=== PATIENT | female | born 1990 | race Caucasian/White ===

== ENCOUNTER 2018-05-01 11:26 | Outpatient (CLI) | payer OTHER ==
[2018-05-01 14:11] LABS: Hemoglobin 6.9 g/dL (12.0-16.0); Mean Corpuscular HGB CONC 31.9 g/dL (32.0-36.0); Mean Corpuscular Hemoglobin 26.5 pg (27.0-31.0); RBC Distribution Width 15.6 % (11.5-14.5); Red Blood Cell (RBC) Count 2.59 mill/uL (4.20-5.40); White Blood Cell (WBC) Count 2.1 thou/uL (4.8-10.8)
[2018-05-01 14:13] LABS: Bilirubin Negative (Negative); Blood, Urine Trace (Negative); Clarity CLEAR (Clear); Glucose, Urine (Dipstick) >=1000 mg/dL (Negative); Leukocyte Small (Negative); Nitrite Negative (Negative); Protein, Urine (Dipstick) Trace mg/dL (Neg-Trace); Specific Gravity, Urine 1.018 (1.002-1.036); Urobilinogen 0.2 mg/dL (0.2-1.0)
[2018-05-01 14:14] LABS: BHCG - Serum Negative (NEGATIVE); Pregs Control Background? CLEAR/WHITE (CLR/WHITE); Pregs Control Bar Appear? YES (CONTROL BAR)
[2018-05-01 14:15] LABS: INR-International Normal Ratio 1.1
[2018-05-01 14:16] LABS: PTT 29.6 SEC (22.9-36.1)
[2018-05-01 14:17] LABS: Bacteria/HPF 1+ HPF (None Seen); Hyaline Casts/LPF 0-3 HYALINE CAST LPF (0-3 Hyaline); Pathc Cast-AUWi Flag 0.14 (0-2.49)
[2018-05-01 14:20] LABS: Anion Gap 14 mmol/L (10-20); BUN (Urea Nitrogen) 22 mg/dL (7.0-18.7); Calc. Creatinine Clearance 0 mL/min (70-130); Calcium 9.5 mg/dL (7.8-10.44); Carbon Dioxide 23 mmol/L (22-29); Chloride 105 mmol/L (98-107); Estimated GFR-MDRD 42; Glucose 350 mg/dL (70-105); Potassium 5.1 mmol/L (3.5-5.1); Sodium 137 mmol/L (136-145)
[2018-05-01 14:26] LABS: Mean Platelet Volume 18.6 fL (7.4-10.4); Platelet Count 4 thou/uL (130-400)
== END 2018-05-01 11:27 | disposition home or self-care (01) ==
LOC: LABBT 11:26
PROVIDERS: ATTEND Urology
DX: Z01.812 Encounter for preprocedural laboratory examination (principal); N13.39 Other hydronephrosis; D59.1 Other autoimmune hemolytic anemias; E11.65 Type 2 diabetes mellitus with hyperglycemia; Q62.11 Congenital occlusion of ureteropelvic junction; E66.9 Obesity, unspecified; D61.818 Other pancytopenia; N28.9 Disorder of kidney and ureter, unspecified; Z91.19 Patient's noncompliance with other medical treatment and regimen
CPT/HCPCS: 80048; 81001; 84703; 85027; 85610; 85730; 87086

== ENCOUNTER 2018-05-01 15:31 | Inpatient (IN) | payer OTHER ==
[2018-05-01 16:46] LABS: Hemoglobin 6.6 g/dL (12.0-16.0); Mean Corpuscular HGB CONC 32.2 g/dL (32.0-36.0); Mean Corpuscular Hemoglobin 25.9 pg (27.0-31.0); Mean Corpuscular Volume 80.3 fL (78.0-98.0); Mean Platelet Volume 18.2 fL (7.4-10.4); Platelet Count 3 thou/uL (130-400); RBC Distribution Width 15.3 % (11.5-14.5); Red Blood Cell (RBC) Count 2.56 mill/uL (4.20-5.40); White Blood Cell (WBC) Count 1.8 thou/uL (4.8-10.8)
[2018-05-01 16:57] LABS: ALT (SGPT) 13 U/L (8-55); AST (SGOT) 15 U/L (5-34); Albumin 3.5 g/dL (3.5-5.0); Alkaline Phosphatase 76 U/L (40-150); Anion Gap 15 mmol/L (10-20); BUN (Urea Nitrogen) 22 mg/dL (7.0-18.7); Bilirubin, Total 0.7 mg/dL (0.2-1.2); Calc. Creatinine Clearance 0 mL/min (70-130); Calcium 9.1 mg/dL (7.8-10.44); Carbon Dioxide 21 mmol/L (22-29); Chloride 101 mmol/L (98-107); Estimated GFR-MDRD 39; Globulin 2.1 g/dL (2.4-3.5); Glucose 451 mg/dL (70-105); Potassium 4.8 mmol/L (3.5-5.1); Protein, Total 5.6 g/dL (6.0-8.3); Sodium 132 mmol/L (136-145)
[2018-05-01 17:05] LABS: Anisocytosis SLIGHT = 6-15 cells (100X) (0-5/hpf); Band 4 % (5-11); Hypochromia SLIGHT = 6-15 cells (100X) (0-5/hpf); Lymphocytes 46 % (21-51); MDiff Complete? YES; Monocytes 2 % (0-10); Neutrophil 48 % (42-75); Nucleated RBC 1 % (0); Platelet Morphology Comment Appears Decreased
[2018-05-01] MEDS ORDERED: Acetaminophen 500 MG TAB ONE (18:42)
--- NOTE | 2018-05-01 19:17 | CT ---
CT HEAD WITHOUT CONTRAST 05/01/18 Multiple tomograms obtained through the head without IV enhancement. INDICATIONS: Headache. Ventricle have normal size and position. No evidence of intracranial mass or hemorrhage. No evidence of infarct. There is diffuse mucosal opacification involving the paranasal sinuses which are incompletely imaged. Findings may represent diffuse polyposis or sinusitis. IMPRESSION: 1. No acute intracranial abnormality. 2. Diffuse paranasal sinus mucosal disease. Consider ENT referral. POS: CAROLINE
[2018-05-01] MEDS ORDERED: Dextrose 50% Abboject 50 ML SYRINGE SLOW IVP PRN (21:10)
[2018-05-01] MEDS ORDERED: Insulin Glargine 60 UNITS in Pre-Filled Syringe 1 EACH SC SCH ×2 (21:10→21:30)
[2018-05-01] MEDS ORDERED: Dextrose 5% in Water 1,000 ML IV PRN (21:10)
[2018-05-01] MEDS ORDERED: Acetaminophen 650 MG Suppository PR PRN (21:10)
[2018-05-01] MEDS ORDERED: Ondansetron PF 4 MG/2 ML Vial IVP PRN (21:10)
[2018-05-01] MEDS ORDERED: Guaifenesin DM 100-10/5 ML UDCUP PO PRN (21:10)
[2018-05-01] MEDS ORDERED: Pantoprazole 40 MG VIAL IVP SCH (21:30)
[2018-05-01] MEDS: HumaLOG 300 UNITS/3 ML VIAL SC PRN (23:36)
[2018-05-02] MEDS ORDERED: Nystatin Powder 15 GM BOT TOP PRN (01:10)
--- NOTE | 2018-05-02 02:33 | HP ---
PRIMARY CARE PHYSICIAN: Rosa Vazquez DO PRIMARY ONCOLOGIST: Neelam Cotto MD CHIEF COMPLAINT: Abnormal lab. HISTORY OF PRESENT ILLNESS: This is a 28-year-old white female with a known history of splenomegaly and pancytopenia and possible previous autoimmune hemolytic anemia. She was seeing Dr. Ankush Benton for some hydronephrosis, was going to have a ureteral stent placed next week, so Dr. Ankush Benton had her go in today for preoperative blood work. Her hemoglobin came back at 6.6 down from 9.6 in January of 2018, and her platelet count was down to 3000, white blood cell count low also at 1800, so the patient was sent to the emergency room. In the ER, she has had some platelets started to be transfused and blood has been ordered for type and cross. She does have a history of significant antibodies in her blood. Last time, she had to have a transfusion back in 2011. They had to bring in the blood from [place] and took 3 days to get a unit. At that time, she was down to 4.6. The patient reports complaints of some lower extremity cramping pains that she went to the ER for few weeks ago, but denies any blood work drawn and then today says her head feels like that she has a little bit of a headache and her stomach feels weak. No other specific complaints. She does not have any history of bleeding. No nose bleeds. No vomiting of blood. No blood in her bowel movements or black tarry stools. No blood in her urine. PAST MEDICAL HISTORY: 1. Diabetes mellitus, insulin dependent. 2. Pancytopenia. 3. Splenomegaly. 4. 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 5. Asthma. 6. Left-sided hydronephrosis. 7. Moderate mental retardation. 8. Morbid obesity. PAST SURGICAL HISTORY: Dental surgery for abscess. SOCIAL HISTORY: The patient lives with her mother, who is her main crm marketing manager. No history of tobacco, alcohol, or illicit drugs. FAMILY HISTORY: Positive for diabetes mellitus type 2 in multiple family members. ALLERGIES: 1. BACTRIM. 2. KEFLEX. 3. LISINOPRIL. 4. LOSARTAN. CURRENT MEDICATIONS: 1. Lantus 60 units subcu twice a day. 2. Ranitidine 300 mg daily. She does not know the rest of her medications, does not have them with her. Family will obtain an accurate list for tomorrow. REVIEW OF SYSTEMS: CONSTITUTIONAL: No fevers. No chills. EYES: No double vision or blurred vision. ENT: No congestion, drainage, or sore throat. PULMONARY: No coughing, wheezing, or shortness of breath. CARDIOVASCULAR: No chest pain. No palpitations or racing heart. GASTROINTESTINAL: No abdominal pain. No nausea or vomiting. No diarrhea or constipation. GENITOURINARY: No dysuria or hematuria. MUSCULOSKELETAL: She has a muscle aches on her calves and legs on and off as per the HPI, none currently. SKIN: No rashes or other lesions. She has noticed no petechiae or bleeding. NEUROLOGIC: She has mild headache as per the HPI. No numbness, tingling, or focal weakness. PHYSICAL EXAMINATION: VITAL SIGNS: Blood pressure 135/89, pulse 104, respirations 20, temperature 98.2, and O2 saturation 98% on room air. GENERAL: This is a well-developed, obese, white female, in no acute distress. HEENT: Pupils are equal, round, and reactive to light. Palpebral conjunctivae are pale. Oropharynx clear without lesions, erythema, or exudate. NECK: Supple. No lymphadenopathy. No thyroid nodules or enlargement. HEART: Regular rhythm. Mildly tachycardic. No murmurs, rubs, or gallops. LUNGS: Clear to auscultation bilaterally. No wheezes, crackles, or rhonchi. ABDOMEN: Soft, obese, mildly tender to palpation in the mid epigastric region. No guarding. No rebound tenderness. No hepatosplenomegaly that I was able to palpate, though she is very obese. No other masses noted. EXTREMITIES: No clubbing, cyanosis, or edema. SKIN: No rashes or other lesions noted. NEUROLOGIC: Intact strength and sensation in all extremities. No facial droop. LABORATORY DATA: White blood cell count 1.8, hemoglobin 6.6, hematocrit 20.5, platelet count 3000, and differential normal. Complete metabolic panel notable for sodium of 132, carbon dioxide of 21, and BUN of 22, which is about stable for her creatinine of 1.58, which again is about stable for her glucose of 451. The rest was normal. CT of the brain done in the emergency room showed no acute intracranial abnormality, just some diffuse paranasal sinus mucosal disease. ASSESSMENT: 1. Severe anemia. The patient with possible history of autoimmune hemolytic anemia. There is no official diagnosis in the chart. She has been typed and they are currently having some blood driven in from [place], hopefully that will be compatible and she will daily get that transfused. Dr. Holly has been consulted by the emergency room. 2. Severe thrombocytopenia without active bleeding. The patient is receiving platelets right now. We will recheck platelet count in about 30 minutes after it goes in. 3. Insulin-dependent diabetes mellitus. We will continue the patient's Lantus 60 units twice a day. I am not certain if she is still on metformin, we will hold that for now. Anyway, with her creatinine where it is, we will do fingerstick blood sugars every day before meals and at bedtime with high insulin sliding scale. 4. Chronic renal failure with history of hydronephrosis. The patient seems to be about baseline right now. Hopefully, transfusion will continue to maximize the patient's renal function. The patient will need to eventually get her urinary stent placed, but could not do that at this time. 5. Gastrointestinal prophylaxis. The patient does have a little bit of tenderness in the mid epigastric region. We do need to be concerned about the risk of gastrointestinal bleeding and her low platelet count. I am going to put her on Protonix IV one dose now and then daily after that. 6. Deep venous thrombosis prophylaxis. The patient is at risk for bleeding and we cannot give anything right now and should be a risk for developing bleeding under the skin or rash. If we did SCDs, we will hold off on those for now as well. We will encourage her to ambulate carefully with people there and I would prefer to do that after she gets her blood transfused and her platelet count is at a better level. CODE STATUS: The patient is full code. Her medical decision maker is who helps her make her decisions, her mother. Mother's name is Rena Rousseau. Job ID: [id number]
[2018-05-02] MEDS: Ondansetron ODT 4 MG TAB PO PRN (03:52)
[2018-05-02] MEDS: Pantoprazole 40 MG VIAL IVP SCH (08:23)
[2018-05-02] MEDS: Acetaminophen 325 MG TAB PO PRN ×3 (08:23→23:49)
[2018-05-02 08:40] LABS: Mean Corpuscular HGB CONC 32.2 g/dL (32.0-36.0); Mean Corpuscular Hemoglobin 26.1 pg (27.0-31.0); Mean Corpuscular Volume 81.1 fL (78.0-98.0); Mean Platelet Volume 17.3 fL (7.4-10.4); Platelet Count 6 thou/uL (130-400); RBC Distribution Width 15.5 % (11.5-14.5); Red Blood Cell (RBC) Count 3.07 mill/uL (4.20-5.40); White Blood Cell (WBC) Count 2.2 thou/uL (4.8-10.8)
[2018-05-02 08:55] LABS: Anisocytosis SLIGHT = 6-15 cells (100X) (0-5/hpf); Band 5 % (5-11); Eosinophils 1 % (0-10); Lymphocytes 38 % (21-51); MDiff Complete? YES; Monocytes 11 % (0-10); Neutrophil 40 % (42-75); Nucleated RBC 2 % (0); Ovalocytes SLIGHT = 2-5 cells (100X) (0-1/hpf); Platelet Morphology Comment Appears Decreased; Polychromasia MODERATE = 3-4 cells (100X) (0-2/hpf); Reactive Lymphocytes 4 % (0-10)
[2018-05-02 09:05] LABS: Anion Gap 16 mmol/L (10-20); BUN (Urea Nitrogen) 20 mg/dL (7.0-18.7); Calc. Creatinine Clearance 86 mL/min (70-130); Calcium 9.1 mg/dL (7.8-10.44); Carbon Dioxide 17 mmol/L (22-29); Chloride 108 mmol/L (98-107); Estimated GFR-MDRD 43; Glucose 260 mg/dL (70-105); Iron 300 ug/dL (50-170); Iron Binding Capacity, Total 251 mcg/dL (265-497); Potassium 5.2 mmol/L (3.5-5.1); Sodium 136 mmol/L (136-145)
[2018-05-02] MEDS: Insulin Glargine 60 UNITS in Pre-Filled Syringe 1 EACH SC SCH ×2 (09:21→22:03)
[2018-05-02] MEDS: Dexamethasone 40 MG in Sodium Chloride 0.9% 50 ML IVPB SCH (10:29)
[2018-05-02 11:38] LABS: Iron 25 ug/dL (50-170); Iron Binding Capacity, Total 254 mcg/dL (265-497)
--- NOTE | 2018-05-02 12:07 | PDOC.PN ---
- Subjective Encounter Start Date: 05/02/18 Encounter Start Time: 08:00 -: old records requested/rev Patient seen and examined. No new complaints. No overnight events - Objective Resuscitation Status - Order Detail: 05/01/18 19:15 Resuscitation Status Routine Resuscitation Status: FULL: Full Resuscitation MAR Reviewed: Yes Vital Signs & Weight: Vital Signs (12 hours) Temp Pulse Pulse Resp BP BP Pulse Ox 05/02/18 08:00 97.6 F 100 17 114/76 96 05/02/18 03:10 96 F L 99 20 105/57 L 100 05/02/18 03:00 96.7 F L 106 H 24 H 115/58 L Weight Weight 206 lb I&O: 05/01/18 05/02/18 05/03/18 06:59 06:59 06:59 Intake Total 1150 Output Total 500 Balance 650 Result Diagrams: 05/02/18 08:28 05/02/18 08:28 Additional Labs: Accuchecks 05/02/18 05/02/18 05/01/18 11:03 05:00 22:12 POC Glucose 350 H 245 H 479 H EKG Reviewed by me: Yes Phys Exam - Physical Examination Constitutional: NAD HEENT: PERRLA, moist MMs, sclera anicteric Neck: no JVD, supple Respiratory: no wheezing, no rales, no rhonchi Cardiovascular: RRR, no significant murmur, no rub Gastrointestinal: soft, non-tender, no distention, positive bowel sounds Musculoskeletal: no edema, pulses present Neurological: non-focal, normal sensation, moves all 4 limbs Lymphatic: no nodes Psychiatric: normal affect, A&O x 3 Skin: normal turgor Deviation from normal: bruise noted Dx/Plan (1) Symptomatic anemia Code(s): D64.9 - ANEMIA, UNSPECIFIED Status: Acute (2) Thrombocytopenia Code(s): D69.6 - THROMBOCYTOPENIA, UNSPECIFIED Status: Acute (3) CKD (chronic kidney disease), stage III Status: Chronic (4) Diabetes type 2, uncontrolled Code(s): E11.65 - TYPE 2 DIABETES MELLITUS WITH HYPERGLYCEMIA Status: Chronic (5) Hypersplenism Code(s): D73.1 - HYPERSPLENISM Status: Chronic (6) Obesity (BMI 30-39.9) Code(s): E66.9 - OBESITY, UNSPECIFIED Status: Chronic (7) Pancytopenia Code(s): D61.818 - OTHER PANCYTOPENIA Status: Chronic - Plan cont current plan of care, plan discussed w/ family * medication reviewed as below * symptomatic treatment * discussed with mother * oncology on case * transfuse platelet if oncology ok. Review of Systems - Review of Systems Respiratory: negative: Cough, Dry, Shortness of Breath, Hemoptysis, SOB with Excertion, Pleuritic Pain, Sputum, Wheezing Cardiovascular: negative: chest pain, palpitations, orthopnea, paroxysmal nocturnal dyspnea, edema, light headedness, other Gastrointestinal: negative: Nausea, Vomiting, Abdominal Pain, Diarrhea, Constipation, Melena, Hematochezia, Other Genitourinary: negative: Dysuria, Frequency, Incontinence, Hematuria, Retention , Other Musculoskeletal: negative: Neck Pain, Shoulder Pain, Arm Pain, Back Pain, Hand Pain, Leg Pain, Foot Pain, Other Skin: negative: Rash, Lesions, Jose Manuel, Bruising, Other - Medications/Allergies Allergies/Adverse Reactions: Allergies Allergy/AdvReac Type Severity Reaction Status Date / Time cephalexin [From Keflex] Allergy Verified 05/01/18 21:30 lisinopril Allergy Verified 05/01/18 11:46 losartan Allergy Verified 05/01/18 11:46 sulfamethoxazole Allergy Verified 05/01/18 21:30 [From Bactrim] trimethoprim [From Bactrim] Allergy Verified 05/01/18 21:30 Medications: Current Medications Acetaminophen (Tylenol) 650 mg PO Q4H PRN PRN Reason: Headache/Fever/Mild Pain (1-3) Last Admin: 05/02/18 08:23 Dose: 650 mg Acetaminophen (Tylenol) 650 mg VA Q4H PRN PRN Reason: Headache/Fever/Mild Pain (1-3) Dextrose/Water (Dextrose 50%) 25 gm SLOW IVP PRN PRN PRN Reason: Hypoglycemia Glucagon (Glucagon) 1 mg IM PRN PRN PRN Reason: Hypoglycemia Guaifenesin/Dextromethorphan (Robitussin Dm) 15 ml PO Q4H PRN PRN Reason: Cough Dextrose/Water (D5w) 1,000 mls @ 0 mls/hr IV .Q0M PRN PRN Reason: Hypoglycemia Insulin Glargine 60 units/ (Miscellaneous Medication) 0.6 mls @ 0 mls/hr SC BID [facility] Last Admin: 05/02/18 09:21 Dose: 0.6 mls Dexamethasone 40 mg/ Sodium (Chloride) 60 mls @ 100 mls/hr IVPB DAILY [facility] Stop: 05/09/18 09:00 Last Admin: 05/02/18 10:29 Dose: 60 mls Insulin Human Lispro (Humalog) 0 units SC .AGGRESSIVE SLIDING PRN PRN Reason: Aggressive Correctional Scale Insulin Human Lispro (Humalog) 0 units SC .BEDTIME SLIDING SC PRN PRN Reason: Bedtime Correctional Scale Last Admin: 05/01/18 23:36 Dose: 5 unit Nystatin (Mycostatin Powder) 15 gm TOP PRN PRN PRN Reason: Rash/Topical Irritation Last Admin: 05/02/18 03:52 Dose: 1 applic Ondansetron HCl (Zofran Odt) 4 mg PO Q6H PRN PRN Reason: Nausea/Vomiting Ondansetron HCl (Zofran) 4 mg IVP Q6H PRN PRN Reason: Nausea/Vomiting Pantoprazole Sodium (Protonix) [address] [facility] Last Admin: 05/02/18 08:23 Dose: 40 mg Senna/Docusate Sodium (Senokot S) 2 tab PO BID PRN PRN Reason: Constipation Sodium Chloride (Normal Saline Pf) 10 ml FS PRN PRN PRN Reason: RECONSTITUTION
[2018-05-02] MEDS: HumaLOG 300 UNITS/3 ML VIAL SC PRN ×2 (12:55→18:29)
[2018-05-02 18:01] LABS: Glucose 702 mg/dL (70-105)
[2018-05-02] MEDS: Lorazepam 1 MG TAB PO PRN (22:29)
[2018-05-02 23:08] LABS: Glucose 630 mg/dL (70-105)
[2018-05-02] MEDS: Melatonin 3 MG TAB PO PRN (23:49)
[2018-05-03] MEDS: HumaLOG 300 UNITS/3 ML VIAL SC PRN ×3 (00:46→11:08)
[2018-05-03 01:38] LABS: Anion Gap 15 mmol/L (10-20); BUN (Urea Nitrogen) 32 mg/dL (7.0-18.7); Calc. Creatinine Clearance 69 mL/min (70-130); Calcium 9.3 mg/dL (7.8-10.44); Carbon Dioxide 21 mmol/L (22-29); Chloride 101 mmol/L (98-107); Estimated GFR-MDRD 34; Glucose 525 mg/dL (70-105); Potassium 5.1 mmol/L (3.5-5.1); Sodium 132 mmol/L (136-145)
[2018-05-03] MEDS ORDERED: PROVENTIL INHALER 6.7 G (200 INHALATIONS) INH PRN (02:05)
[2018-05-03 05:19] LABS: Hemoglobin 7.3 g/dL (12.0-16.0); Mean Corpuscular HGB CONC 33.5 g/dL (32.0-36.0); Mean Corpuscular Volume 83.5 fL (78.0-98.0); Mean Platelet Volume 13.3 fL (7.4-10.4); Platelet Count 22 thou/uL (130-400); RBC Distribution Width 15.1 % (11.5-14.5)
[2018-05-03 05:39] LABS: ALT (SGPT) 10 U/L (8-55); AST (SGOT) 10 U/L (5-34); Albumin 3.5 g/dL (3.5-5.0); Alkaline Phosphatase 71 U/L (40-150); Anion Gap 14 mmol/L (10-20); BUN (Urea Nitrogen) 30 mg/dL (7.0-18.7); Bilirubin, Total 0.6 mg/dL (0.2-1.2); Calc. Creatinine Clearance 78 mL/min (70-130); Calcium 9.5 mg/dL (7.8-10.44); Carbon Dioxide 22 mmol/L (22-29); Chloride 104 mmol/L (98-107); Estimated GFR-MDRD 39; Globulin 2.2 g/dL (2.4-3.5); Glucose 338 mg/dL (70-105); Potassium 4.6 mmol/L (3.5-5.1); Protein, Total 5.7 g/dL (6.0-8.3); Sodium 135 mmol/L (136-145)
[2018-05-03 06:01] LABS: Anisocytosis SLIGHT = 6-15 cells (100X) (0-5/hpf); Band 6 % (5-11); Eosinophils 2 % (0-10); Lymphocytes 30 % (21-51); MDiff Complete? YES; Monocytes 8 % (0-10); Neutrophil 52 % (42-75); Nucleated RBC 1 % (0); Platelet Morphology Comment Appears Decreased; Polychromasia SLIGHT = 2-3 cells (100X) (0-2/hpf); Reactive Lymphocytes 2 % (0-10)
[2018-05-03] MEDS ORDERED: Non-Formulary Item 1 EACH (Insulin Glargine,Hum.Rec.Anlog [Basaglar Kwikpen U-100] 65 UNI SQ SCH (08:00)
[2018-05-03] MEDS: Pregabalin 25 MG CAP PO SCH ×2 (08:23→20:21)
[2018-05-03] MEDS: Acetaminophen 325 MG TAB PO PRN ×2 (08:23→20:23)
[2018-05-03] MEDS: Pantoprazole 40 MG VIAL IVP SCH (08:24)
[2018-05-03] MEDS ORDERED: Non-Formulary Item 1 EACH (Insulin Glargine,Hum.Rec.Anlog [Lantus Solostar] 50 UNIT) SQ SCH (09:00)
[2018-05-03] MEDS ORDERED: Insulin Glargine 60 UNITS in Pre-Filled Syringe 1 EACH SC SCH (09:00)
[2018-05-03] MEDS: Dexamethasone 40 MG in Sodium Chloride 0.9% 50 ML IVPB SCH (09:02)
--- NOTE | 2018-05-03 10:03 | PDOC.PN ---
- Subjective Encounter Start Date: 05/03/18 Encounter Start Time: 09:15 Patient seen and examined. No new complaints. No overnight events last night pt was transferred to [facility] for blood sugar control - Objective Resuscitation Status - Order Detail: 05/01/18 19:15 Resuscitation Status Routine Resuscitation Status: FULL: Full Resuscitation MAR Reviewed: Yes Vital Signs & Weight: Vital Signs (12 hours) Temp Pulse Resp BP Pulse Ox 05/03/18 07:00 97.8 F 05/03/18 03:12 97 F L 93 17 112/66 92 L Weight Admit Weight 203 lb 7 oz Weight 206 lb Most Recent Monitor Data Heart Rate from ECG 81 NIBP 120/83 NIBP BP-Mean 95 Respiration from ECG 24 SpO2 98 I&O: 05/02/18 05/03/18 05/04/18 06:59 06:59 06:59 Intake Total 1150 1240 Output Total 500 1200 Balance 650 40 Result Diagrams: 05/03/18 04:51 05/03/18 04:51 Additional Labs: Accuchecks 05/03/18 05/03/18 05/02/18 08:19 03:18 23:56 POC Glucose 337 H 410 H 536 H 05/02/18 11:03 POC Glucose 350 H EKG Reviewed by me: Yes Phys Exam - Physical Examination Constitutional: NAD HEENT: PERRLA, moist MMs, sclera anicteric Neck: no JVD, supple Respiratory: no wheezing, no rales, no rhonchi Cardiovascular: RRR, no significant murmur, no rub Gastrointestinal: soft, non-tender, no distention, positive bowel sounds Musculoskeletal: no edema, pulses present Neurological: non-focal, normal sensation Lymphatic: no nodes Psychiatric: normal affect Skin: no rash, normal turgor Dx/Plan (1) Symptomatic anemia Code(s): D64.9 - ANEMIA, UNSPECIFIED Status: Acute (2) Thrombocytopenia Code(s): D69.6 - THROMBOCYTOPENIA, UNSPECIFIED Status: Acute (3) CKD (chronic kidney disease), stage III Status: Chronic (4) Diabetes type 2, uncontrolled Code(s): E11.65 - TYPE 2 DIABETES MELLITUS WITH HYPERGLYCEMIA Status: Chronic (5) Hypersplenism Code(s): D73.1 - HYPERSPLENISM Status: Chronic (6) Obesity (BMI 30-39.9) Code(s): E66.9 - OBESITY, UNSPECIFIED Status: Chronic (7) Pancytopenia Code(s): D61.818 - OTHER PANCYTOPENIA Status: Chronic (8) Hyperglycemia due to type 2 diabetes mellitus Code(s): E11.65 - TYPE 2 DIABETES MELLITUS WITH HYPERGLYCEMIA Status: Acute Comment: worsened due to steroid - Plan cont current plan of care * currently on levemir 60 unit basal insulin twice daily and will continue to monitor every 2 hourly and provide insulin short acting * continue decadron as per oncology * medication reviewed as below * symptomatic treatment * stable otherwise and platelet count improving. Review of Systems - Review of Systems ENT: negative: Ear Pain, Ear Discharge, Nose Pain, Nose Discharge, Nose Congestion, Mouth Pain, Mouth Swelling, Throat Pain, Throat Swelling, Other Respiratory: negative: Cough, Dry, Shortness of Breath, Hemoptysis, SOB with Excertion, Pleuritic Pain, Sputum, Wheezing Cardiovascular: negative: chest pain, palpitations, orthopnea, paroxysmal nocturnal dyspnea, edema, light headedness, other Gastrointestinal: negative: Nausea, Vomiting, Abdominal Pain, Diarrhea, Constipation, Melena, Hematochezia, Other Genitourinary: negative: Dysuria, Frequency, Incontinence, Hematuria, Retention , Other Musculoskeletal: negative: Neck Pain, Shoulder Pain, Arm Pain, Back Pain, Hand Pain, Leg Pain, Foot Pain, Other - Medications/Allergies Allergies/Adverse Reactions: Allergies Allergy/AdvReac Type Severity Reaction Status Date / Time cephalexin [From Keflex] Allergy Verified 05/03/18 01:21 lisinopril Allergy Verified 05/03/18 01:21 losartan Allergy Verified 05/03/18 01:21 sulfamethoxazole Allergy Verified 05/03/18 01:21 [From Bactrim] trimethoprim [From Bactrim] Allergy Verified 05/03/18 01:21 Medications: Current Medications Acetaminophen (Tylenol) 650 mg PO Q4H PRN PRN Reason: Headache/Fever/Mild Pain (1-3) Last Admin: 05/03/18 08:23 Dose: 650 mg Albuterol Sulfate (Proventil Hfa) 2 puff INH Q4H PRN PRN Reason: Wheezing Dextrose/Water (Dextrose 50%) 25 gm SLOW IVP PRN PRN PRN Reason: Hypoglycemia Glucagon (Glucagon) 1 mg IM PRN PRN PRN Reason: Hypoglycemia Guaifenesin/Dextromethorphan (Robitussin Dm) 15 ml PO Q4H PRN PRN Reason: Cough Dextrose/Water (D5w) 1,000 mls @ 0 mls/hr IV .Q0M PRN PRN Reason: Hypoglycemia Dexamethasone 40 mg/ Sodium (Chloride) 60 mls @ 100 mls/hr IVPB DAILY [facility] Stop: 05/09/18 09:00 Last Admin: 05/03/18 09:02 Dose: 60 mls Insulin Glargine 60 units/ (Miscellaneous Medication) 0.6 mls @ 0 mls/hr SC BID [facility] Last Admin: 05/03/18 09:02 Dose: 0.6 mls Insulin Human Lispro (Humalog) 0 units SC .AGGRESSIVE SLIDING PRN PRN Reason: Aggressive Correctional Scale Last Admin: 05/02/18 18:29 Dose: 13 unit Insulin Human Lispro (Humalog) 0 units SC .BEDTIME SLIDING SC PRN PRN Reason: Bedtime Correctional Scale Last Admin: 05/03/18 06:29 Dose: 5 unit Lorazepam (Ativan) 1 mg PO Q6H PRN PRN Reason: Anxiety Last Admin: 05/02/18 22:29 Dose: 1 mg Melatonin (Melatonin) 3 mg PO HS PRN PRN Reason: Insomnia Last Admin: 05/02/18 23:49 Dose: 3 mg Montelukast Sodium (Singulair) 10 mg PO QPM [facility] Nystatin (Mycostatin Powder) 15 gm TOP PRN PRN PRN Reason: Rash/Topical Irritation Last Admin: 05/02/18 03:52 Dose: 1 applic Ondansetron HCl (Zofran Odt) 4 mg PO Q6H PRN PRN Reason: Nausea/Vomiting Ondansetron HCl (Zofran) 4 mg IVP Q6H PRN PRN Reason: Nausea/Vomiting Pantoprazole Sodium (Protonix) 40 mg IVP DAILY [facility] Last Admin: 05/03/18 08:24 Dose: 40 mg Pregabalin (Lyrica) 25 mg PO BID [facility] Last Admin: 05/03/18 08:23 Dose: 25 mg Senna/Docusate Sodium (Senokot S) 2 tab PO BID PRN PRN Reason: Constipation Sodium Chloride (Normal Saline Pf) 10 ml FS PRN PRN PRN Reason: RECONSTITUTION
--- NOTE | 2018-05-03 15:32 | CON ---
DATE OF CONSULTATION: 05/03/2018 SERVICE: Pulmonary Medicine. REASON FOR CONSULTATION: [facility] patient. HISTORY OF PRESENT ILLNESS: The patient is a 28-year-old white female with past medical history significant for horrendous type 2 diabetes mellitus. She also has an ITP. She had a flare of her ITP and her platelets were discovered to be low. As such, she was placed in the hospital. She was put on some broad-spectrum steroids. They shot her sugars through the roof. When this occurred, we got very aggressive with sugar control, but still fell behind. As such, for more intensive nursing requirements, she was moved down to the [facility]. She denies any current chest pain , fevers, or chills. She is otherwise in her usual state of health. She is not having any cough, sputum production, nausea, vomiting, diarrhea, hot or red swollen joints, or rashes. PAST MEDICAL HISTORY: 1. Type 2 diabetes mellitus. 2. Pancytopenia with severe thrombocytopenia. 3. Splenomegaly. 4. Asthma. 5. Mental retardation, moderate. 6. Morbid obesity. 7. Hydronephrosis on the left. PAST SURGICAL HISTORY: Dental surgery. SOCIAL HISTORY: The patient lives with her inspector hot forgings. No history of alcohol, tobacco, or illicit drug use. FAMILY HISTORY: Noncontributory. ALLERGIES: BACTRIM, KEFLEX, LISINOPRIL, AND LOSARTAN. MEDICATIONS: List of her inpatient medications was reviewed. No specific updates were made at this time. REVIEW OF SYSTEMS: General, head, ears, eyes, nose, throat, cardiovascular, respiratory, GI, , musculoskeletal, neurologic, and skin is negative except as mentioned in the HPI. PHYSICAL EXAMINATION: VITAL SIGNS: Afebrile, pulse 93, blood pressure 120/83, respirations 25, and saturation 100% on room air. GENERAL: The patient is awake and alert, in no apparent distress. LUNGS: There is excellent air entry, with no prolonged expiratory phase, wheezing, rhonchi, or crackles. HEART: Normal rate. Regular. ABDOMEN: Soft, nontender, and nondistended. Bowel sounds are positive. MUSCULOSKELETAL: No cyanosis or clubbing. No pitting in the bilateral lower extremities. NEUROLOGIC: Grossly nonfocal. LABORATORY DATA: WBC 2.0, hemoglobin 7.3, and platelets 22,000 and beautifully uptrending. MCV is 83. INR previously 1.1. Creatinine 1.57, which is close to baseline. Basic metabolic profile is otherwise unremarkable. Liver function studies are unremarkable. B12 level was last checked in 2013; at that point, it was 614. Urinalysis is unremarkable. TOMMIE was previously negative. Rheumatoid factor previously negative. HIV, hepatitis serologies are unremarkable. ASSESSMENT: 1. Pancytopenia. 2. Type 2 diabetes mellitus with hyperglycemia. 3. Chronic kidney disease, stage 3. DISCUSSION AND PLAN: Despite the fact that we have her on her home dose of Lantus, her blood sugars remain persistently elevated. As such, we are going to initiate an insulin drip. Prior B12 in 2013 was unremarkable, but I will go ahead and repeat one here. We will try to get a handle on how much insulin she requires, so that we can get her on subcu medications. Pulmonary Critical Care will continue to follow along. 70 minutes have been devoted to this patient in various activities. I personally reviewed all imaging studies and laboratory data noted within this document. For fifty percent of this time, I was interacting with the patient at the bedside or coordinating care with the care team. For the remainder of the time I was immediately available to the patient in the hospital unit. Job ID: [id number] [id number]
[2018-05-03] MEDS: HUMULIN R 100 UNITS in Sodium Chloride 0.9% 100 ML IVPB SCH (15:35)
[2018-05-03 16:27] LABS: Hemoglobin 7.8 g/dL (12.0-16.0); Mean Corpuscular HGB CONC 31.7 g/dL (32.0-36.0); Mean Corpuscular Hemoglobin 26.9 pg (27.0-31.0); Mean Platelet Volume 12.5 fL (7.4-10.4); Platelet Count 22 thou/uL (130-400); RBC Distribution Width 15.1 % (11.5-14.5); White Blood Cell (WBC) Count 2.5 thou/uL (4.8-10.8)
[2018-05-03 16:54] LABS: #Lymphocytes 0.5 thou/uL (1.20-3.40); #Monocytes 0.1 thou/uL (0.11-0.59); %Neutrophils 76.6 % (42.0-75.0); Anisocytosis SLIGHT = 6-15 cells (100X) (0-5/hpf); Band 6 % (5-11); Hypochromia SLIGHT = 6-15 cells (100X) (0-5/hpf); Lymphocytes 12 % (21-51); MDiff Complete? YES; Monocytes 2 % (0-10); Neutrophil 80 % (42-75); Platelet Morphology Comment Appears Decreased
[2018-05-03] MEDS: Montelukast Sodium 10 mg Tablet PO SCH (20:21)
[2018-05-03] MEDS: Lorazepam 1 MG TAB PO PRN (20:23)
[2018-05-03] MEDS ORDERED: Insulin Glargine 45 UNITS in Pre-Filled Syringe 1 EACH SC SCH (21:00)
[2018-05-04] MEDS: HUMULIN R 100 UNITS in Sodium Chloride 0.9% 100 ML IVPB SCH (03:06)
[2018-05-04] MEDS: Acetaminophen 325 MG TAB PO PRN ×3 (03:20→13:12)
[2018-05-04] MEDS: Lorazepam 1 MG TAB PO PRN (03:20)
[2018-05-04 08:04] LABS: Anion Gap 13 mmol/L (10-20); BUN (Urea Nitrogen) 34 mg/dL (7.0-18.7); Calc. Creatinine Clearance 91 mL/min (70-130); Calcium 9.7 mg/dL (7.8-10.44); Carbon Dioxide 24 mmol/L (22-29); Chloride 107 mmol/L (98-107); Estimated GFR-MDRD 47; Glucose 99 mg/dL (70-105); Magnesium 1.7 mg/dL (1.6-2.6); Potassium 4.4 mmol/L (3.5-5.1); Sodium 140 mmol/L (136-145)
[2018-05-04] MEDS: Pregabalin 25 MG CAP PO SCH ×2 (08:27→20:51)
[2018-05-04] MEDS: Dexamethasone 40 MG in Sodium Chloride 0.9% 50 ML IVPB SCH (08:28)
[2018-05-04] MEDS: Sodium Chloride 0.9% (PF) 10 ML VIAL FS PRN (08:28)
[2018-05-04] MEDS: Pantoprazole 40 MG VIAL IVP SCH (08:28)
[2018-05-04 08:37] LABS: Band 1 % (5-11); Hemoglobin 7.8 g/dL (12.0-16.0); Hypochromia SLIGHT = 6-15 cells (100X) (0-5/hpf); Lymphocytes 41 % (21-51); MDiff Complete? YES; Mean Corpuscular HGB CONC 31.8 g/dL (32.0-36.0); Mean Corpuscular Hemoglobin 26.6 pg (27.0-31.0); Mean Corpuscular Volume 83.8 fL (78.0-98.0); Monocytes 5 % (0-10); Neutrophil 53 % (42-75); Nucleated RBC 2 % (0); Platelet Count 28 thou/uL (130-400); Platelet Morphology Comment Appears Decreased; RBC Distribution Width 15.3 % (11.5-14.5); Red Blood Cell (RBC) Count 2.94 mill/uL (4.20-5.40); White Blood Cell (WBC) Count 3.6 thou/uL (4.8-10.8)
--- NOTE | 2018-05-04 09:37 | PDOC.PN ---
- Subjective Encounter Start Date: 05/04/18 Encounter Start Time: 08:20 Patient seen and examined. No overnight events now insulin drip off, blood sugar better controlled, she has cough - Objective Resuscitation Status - Order Detail: 05/01/18 19:15 Resuscitation Status Routine Resuscitation Status: FULL: Full Resuscitation Vital Signs & Weight: Vital Signs (12 hours) Temp Pulse Resp BP Pulse Ox 05/04/18 09:11 98 20 115/78 99 05/04/18 07:45 99 05/04/18 07:18 96.7 F L 05/04/18 03:50 97.4 F L 90 14 127/75 98 05/03/18 23:31 97.6 F 05/03/18 23:14 85 18 113/72 96 Weight Admit Weight 203 lb 7 oz Weight 205 lb 1.6 oz Most Recent Monitor Data Heart Rate from ECG 90 NIBP 120/83 NIBP BP-Mean 95 Respiration from ECG 21 SpO2 98 I&O: 05/03/18 05/04/18 05/05/18 06:59 06:59 06:59 Intake Total 1240 250 Output Total 1200 350 400 Balance 40 -100 -400 Result Diagrams: 05/04/18 06:50 05/04/18 06:50 Additional Labs: Accuchecks 05/04/18 05/04/18 05/04/18 09:05 08:03 07:15 POC Glucose 181 H 110 114 H 05/04/18 05/04/18 05/04/18 06:11 04:08 03:12 POC Glucose 110 145 H 218 H 05/04/18 05/04/18 05/04/18 01:56 01:10 00:03 POC Glucose 252 H 264 H 312 H 05/03/18 05/03/18 05/03/18 23:08 22:20 21:08 POC Glucose 334 H 315 H 342 H 05/03/18 05/03/18 05/03/18 20:11 19:03 18:03 POC Glucose 279 H 336 H 347 H 05/03/18 05/03/18 17:28 11:06 POC Glucose 373 H 453 H EKG Reviewed by me: Yes (nsr) Phys Exam - Physical Examination Constitutional: NAD HEENT: PERRLA, moist MMs, sclera anicteric Neck: no JVD, supple Respiratory: no wheezing, no rales, no rhonchi Cardiovascular: RRR, no significant murmur, no rub Gastrointestinal: soft, non-tender, no distention, positive bowel sounds Musculoskeletal: no edema, pulses present Neurological: non-focal, normal sensation Psychiatric: normal affect, A&O x 3 Skin: normal turgor Deviation from normal: echemoses noted Dx/Plan (1) Symptomatic anemia Code(s): D64.9 - ANEMIA, UNSPECIFIED Status: Acute (2) Thrombocytopenia Code(s): D69.6 - THROMBOCYTOPENIA, UNSPECIFIED Status: Acute (3) CKD (chronic kidney disease), stage III Status: Chronic (4) Diabetes type 2, uncontrolled Code(s): E11.65 - TYPE 2 DIABETES MELLITUS WITH HYPERGLYCEMIA Status: Chronic (5) Hypersplenism Code(s): D73.1 - HYPERSPLENISM Status: Chronic (6) Obesity (BMI 30-39.9) Code(s): E66.9 - OBESITY, UNSPECIFIED Status: Chronic (7) Pancytopenia Code(s): D61.818 - OTHER PANCYTOPENIA Status: Chronic (8) Hyperglycemia due to type 2 diabetes mellitus Code(s): E11.65 - TYPE 2 DIABETES MELLITUS WITH HYPERGLYCEMIA Status: Acute Comment: worsened due to steroid - Plan cont current plan of care * today last dose of steroid * medication reviewed as below * symptomatic treatment * will repeat labs tomorrow * check influenza * ok to transfer to floor. Review of Systems - Review of Systems ENT: negative: Ear Pain, Ear Discharge, Nose Pain, Nose Discharge, Nose Congestion, Mouth Pain, Mouth Swelling, Throat Pain, Throat Swelling, Other Respiratory: Cough, Dry. negative: Shortness of Breath, Hemoptysis, SOB with Excertion, Pleuritic Pain, Sputum, Wheezing Cardiovascular: negative: chest pain, palpitations, orthopnea, paroxysmal nocturnal dyspnea, edema, light headedness, other Gastrointestinal: negative: Nausea, Vomiting, Abdominal Pain, Diarrhea, Constipation, Melena, Hematochezia, Other Genitourinary: negative: Dysuria, Frequency, Incontinence, Hematuria, Retention , Other Musculoskeletal: negative: Neck Pain, Shoulder Pain, Arm Pain, Back Pain, Hand Pain, Leg Pain, Foot Pain, Other - Medications/Allergies Allergies/Adverse Reactions: Allergies Allergy/AdvReac Type Severity Reaction Status Date / Time cephalexin [From Keflex] Allergy Verified 05/03/18 01:21 lisinopril Allergy Verified 05/03/18 01:21 losartan Allergy Verified 05/03/18 01:21 sulfamethoxazole Allergy Verified 05/03/18 01:21 [From Bactrim] trimethoprim [From Bactrim] Allergy Verified 05/03/18 01:21 Medications: Current Medications Acetaminophen (Tylenol) 650 mg PO Q4H PRN PRN Reason: Headache/Fever/Mild Pain (1-3) Last Admin: 05/04/18 08:27 Dose: 650 mg Albuterol Sulfate (Proventil Hfa) 2 puff INH Q4H PRN PRN Reason: Wheezing Dextrose/Water (Dextrose 50%) 25 gm SLOW IVP PRN PRN PRN Reason: Hypoglycemia Glucagon (Glucagon) 1 mg IM PRN PRN PRN Reason: Hypoglycemia Guaifenesin/Dextromethorphan (Robitussin Dm) 15 ml PO Q4H PRN PRN Reason: Cough Dextrose/Water (D5w) 1,000 mls @ 0 mls/hr IV .Q0M PRN PRN Reason: Hypoglycemia Dexamethasone 40 mg/ Sodium (Chloride) 60 mls @ 100 mls/hr IVPB DAILY [facility] Stop: 05/09/18 09:00 Last Admin: 05/04/18 08:28 Dose: 60 mls Insulin Human Regular 100 (units/ Sodium Chloride) 101 mls @ 0 mls/hr IVPB INF [facility]; Protocol Last Admin: 05/04/18 03:06 Dose: 101 mls Insulin Glargine (Lantus) 0 units SC ONE PRN PRN Reason: PER TRANSITION FROM DRIP Stop: 05/06/18 15:08 Lorazepam (Ativan) 1 mg PO Q6H PRN PRN Reason: Anxiety Last Admin: 05/04/18 03:20 Dose: 1 mg Melatonin (Melatonin) 3 mg PO HS PRN PRN Reason: Insomnia Last Admin: 05/02/18 23:49 Dose: 3 mg Montelukast Sodium (Singulair) 10 mg PO QPM [facility] Last Admin: 05/03/18 20:21 Dose: 10 mg Nystatin (Mycostatin Powder) 15 gm TOP PRN PRN PRN Reason: Rash/Topical Irritation Last Admin: 05/02/18 03:52 Dose: 1 applic Ondansetron HCl (Zofran Odt) 4 mg PO Q6H PRN PRN Reason: Nausea/Vomiting Ondansetron HCl (Zofran) 4 mg IVP Q6H PRN PRN Reason: Nausea/Vomiting Pantoprazole Sodium (Protonix) 40 mg IVP DAILY [facility] Last Admin: 05/04/18 08:28 Dose: 40 mg Pregabalin (Lyrica) 25 mg PO BID [facility] Last Admin: 05/04/18 08:27 Dose: 25 mg Senna/Docusate Sodium (Senokot S) 2 tab PO BID PRN PRN Reason: Constipation Sodium Chloride (Normal Saline Pf) 10 ml FS PRN PRN PRN Reason: RECONSTITUTION Last Admin: 05/04/18 08:28 Dose: 10 ml
[2018-05-04] MEDS ORDERED: HumaLOG 300 UNITS/3 ML VIAL SC PRN ×2 (11:30)
--- NOTE | 2018-05-04 11:46 | PRG ---
DATE OF SERVICE: 05/04/2018 SERVICE: Pulmonary Medicine. INTERVAL HISTORY: The patient is doing fine from Respiratory standpoint. She has complaints basically all over her body. She says she had nausea and vomiting, though she did not vomit. She says she has diarrhea, though nursing reports that she has not. She has lower extremity pain, belly pain, chest pain, headache, basically a wilson-positive review of systems. That being said, there were no significant overnight events. Her platelet count continues to improve. PHYSICAL EXAMINATION: VITAL SIGNS: Afebrile, pulse 98, blood pressure 115/78, respirations 20, and saturation is 99% on room air. GENERAL: The patient is awake and alert, in no apparent distress. LUNGS: Excellent air entry without any prolonged expiratory phase or wheezing. HEART: Normal rate. Regular. ABDOMEN: Soft, nontender, nondistended. Bowel sounds are positive. MUSCULOSKELETAL: No cyanosis or clubbing. No pitting in the bilateral lower extremities. NEUROLOGIC: Grossly nonfocal. LABORATORY DATA: WBC 3.6, hemoglobin 7.8, and platelets 28,000. Blood sugar is ranging from 110 to 250. B12 level fell at 1000. Magnesium and phosphorous actually were unremarkable. Creatinine 1.34, which is beautifully downtrending. Influenza A and B are negative. ASSESSMENT: 1. Pancytopenia. 2. Type 2 diabetes mellitus with hyperglycemia. 3. Chronic kidney disease, stage 3. DISCUSSION AND PLAN: I will replace the magnesium. We will get her back on her long-acting insulin at 30 units twice daily. We will stay on the insulin drip. I will give her 20 units of pre-meal insulin and also an aggressive sliding scale. Pulmonary/Critical Care will continue to follow along, but when she is off the insulin drip, she will be stable for transition to the Oncology floor. Job ID: [id number]
[2018-05-04] MEDS ORDERED: Magnesium 2 GM/50 ML 2 GM in Premix Bag 1 BAG IVPB SCH (12:30)
[2018-05-04] MEDS ORDERED: Insulin Glargine 30 UNITS in Pre-Filled Syringe 1 EACH SC SCH (12:30)
[2018-05-04] MEDS: HumaLOG 300 UNITS/3 ML VIAL SC SCH ×2 (12:43→17:08)
[2018-05-04] MEDS ORDERED: Iron Sucrose Complex 500 MG in Sodium Chloride 0.9% 250 ML 250 ML IVPB SCH (13:30)
--- NOTE | 2018-05-04 16:07 | CON ---
DATE OF CONSULTATION: 05/02/2018 REASON FOR CONSULTATION: Pancytopenia with severe thrombocytopenia. HISTORY OF PRESENT ILLNESS: A 28-year-old female with longstanding history of pancytopenia secondary to splenomegaly from steatohepatitis and history of ITP status post steroids last in 2011, followed by Dr. Cotto, presenting to the hospital with severe thrombocytopenia. The patient was seen by Dr. Noyola for a ureteral stent placement and was found to have platelets of 3. Dr. Noyola consulted me and I advised her to send her into the hospital for evaluation. The patient states that she feels okay, but does feel tired and fatigued and has had extremely heavy periods, especially as of late and her last 1 currently just ended. On admission to the hospital, her hemoglobin was 6.9 and platelets were 3. She denies any blood in the urine, blood in the stool, or dark black tarry stool. The patient has mild mental retardation and is a poor historian. The patient denies any blood transfusions in the last 2 years or any treatment for ITP. The patient last saw Dr. Cotto in December of 2017, and platelets at that time were 95,000 and hemoglobin was 10.7 with a white count of 3.3. 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 PAST SURGICAL HISTORY: Dental surgery for abscess. SOCIAL HISTORY: Lives with her mother, who is her main print inspector. No tobacco, alcohol, or other drugs. FAMILY HISTORY: Noncontributory. ALLERGIES: BACTRIM, KEFLEX, LISINOPRIL, AND LOSARTAN. CURRENT MEDICATIONS: Reviewed. PHYSICAL EXAMINATION: VITAL SIGNS: Temperature 97.8, pulse 96, respirations 17, saturating 97% on room air, and blood pressure 104/70. GENERAL APPEARANCE: The patient is sitting up, in no acute distress. HEENT: Normocephalic and atraumatic. No scleral icterus. NECK: Supple without lymphadenopathy. PULMONARY: No coughing, wheezing, or shortness of breath. LUNGS: Clear to auscultation bilaterally. CARDIOVASCULAR: S1 and S2 without murmurs, rubs, or gallops. ABDOMEN: Obese, soft, and nondistended. EXTREMITIES: No edema. SKIN: Bilateral upper extremity ecchymoses. NEUROLOGIC: Nonfocal. Cranial nerves 2 through 12 grossly intact. PSYCHIATRIC: The patient is awake, alert, and oriented x3. LABORATORY DATA: White blood cells 1.8, hemoglobin 6.6, and platelets 3. Sodium 136, potassium 5.2, chloride 108, carbon dioxide 17, BUN 20, creatinine 1.43, and glucose 260. Iron 25, TIBC 254, percent saturation 10%, and ferritin 203. LDH 229 and bilirubin 0.7. IMAGING DATA: CT brain in the emergency room did not show any evidence of intracranial hemorrhage. 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 The patient has a history of ITP, last treated with steroid in approximately 2011 and has not required treatment since then. She has had worsening bleeding with heavy menses secondary to thrombocytopenia and does have symptomatic anemia with fatigue at this time. Her lab results do not suggest hemolytic anemia and is likely secondary to blood loss on top of her chronic anemia of chronic disease. Recommend 1 unit of packed red blood cells at this time and 1 unit of apheresis platelets. The patient is likely having a flare-up of her ITP and her platelets may be immediately consumes. I would recommend checking a platelet level 30 minutes after she has completed platelet transfusion. Also recommend initiating dexamethasone 40 mg IV x4 days. The platelets do not improve with platelet transfusion and steroids and I would recommend IVIG at that time. We will continue to follow along with you. Thank you for this consult. Job ID: [id number]
[2018-05-04] MEDS: Insulin Glargine 30 UNITS in Pre-Filled Syringe 1 EACH SC SCH (20:51)
[2018-05-04] MEDS: Melatonin 3 MG TAB PO PRN (20:51)
[2018-05-04] MEDS: Montelukast Sodium 10 mg Tablet PO SCH (20:51)
[2018-05-04] MEDS: Ondansetron ODT 4 MG TAB PO PRN (21:40)
[2018-05-05] MEDS: Lorazepam 1 MG TAB PO PRN (03:04)
[2018-05-05] MEDS: HumaLOG 300 UNITS/3 ML VIAL SC SCH ×3 (07:45→16:38)
[2018-05-05 08:08] LABS: Hemoglobin 7.6 g/dL (12.0-16.0); Mean Corpuscular HGB CONC 31.7 g/dL (32.0-36.0); Mean Corpuscular Hemoglobin 26.1 pg (27.0-31.0); Mean Corpuscular Volume 82.3 fL (78.0-98.0); Mean Platelet Volume 11.8 fL (7.4-10.4); Platelet Count 32 thou/uL (130-400); RBC Distribution Width 15.2 % (11.5-14.5); White Blood Cell (WBC) Count 2.7 thou/uL (4.8-10.8)
[2018-05-05 09:49] LABS: Band 2 % (5-11); Hypochromia MODERATE=16-30 cells (100X) (0-5/hpf); Lymphocytes 27 % (21-51); MDiff Complete? YES; Monocytes 2 % (0-10); Neutrophil 56 % (42-75); Nucleated RBC 1 % (0); Platelet Morphology Comment Appears Decreased; Polychromasia SLIGHT = 2-3 cells (100X) (0-2/hpf); Reactive Lymphocytes 13 % (0-10); Tear Drops SLIGHT = 2-5 cells (100X) (0-1/hpf)
[2018-05-05] MEDS: Dexamethasone 40 MG in Sodium Chloride 0.9% 50 ML IVPB SCH (09:53)
[2018-05-05] MEDS: Insulin Glargine 30 UNITS in Pre-Filled Syringe 1 EACH SC SCH ×2 (09:53→21:19)
[2018-05-05] MEDS: Pregabalin 25 MG CAP PO SCH ×2 (09:54→21:20)
[2018-05-05] MEDS: Pantoprazole 40 MG VIAL IVP SCH (09:54)
[2018-05-05] MEDS: Sodium Chloride 0.9% (PF) 10 ML VIAL FS PRN (09:56)
--- NOTE | 2018-05-05 12:06 | PDOC.PN ---
- Subjective Encounter Start Date: 05/05/18 Encounter Start Time: 09:15 Patient seen and examined. No new complaints. No overnight events - Objective Resuscitation Status - Order Detail: 05/01/18 19:15 Resuscitation Status Routine Resuscitation Status: FULL: Full Resuscitation MAR Reviewed: Yes Vital Signs & Weight: Vital Signs (12 hours) Temp Pulse Resp BP Pulse Ox 05/05/18 11:23 96.8 F L 05/05/18 08:00 100 05/05/18 07:35 96.3 F L 05/05/18 04:00 97.8 F 85 16 95/55 L 100 05/05/18 00:46 85 12 124/66 98 Weight Admit Weight 203 lb 7 oz Weight 205 lb 1.6 oz Most Recent Monitor Data Heart Rate from ECG 90 NIBP 95/55 NIBP BP-Mean 68 Respiration from ECG 21 SpO2 98 I&O: 05/04/18 05/05/18 05/06/18 06:59 06:59 06:59 Intake Total 250 1750 Output Total 350 1850 Balance -100 -100 Result Diagrams: 05/05/18 05:34 05/04/18 06:50 Additional Labs: Accuchecks 05/05/18 05/05/18 05/05/18 11:07 09:56 09:03 POC Glucose 169 H 163 H 136 H 05/05/18 05/05/18 05/05/18 08:04 07:02 06:01 POC Glucose 112 H 72 89 05/05/18 05/05/18 05/05/18 03:57 03:02 02:07 POC Glucose 166 H 113 H 149 H 05/05/18 05/04/18 05/04/18 01:00 23:55 22:56 POC Glucose 196 H 132 H 180 H 05/04/18 05/04/18 05/04/18 21:54 20:05 19:16 POC Glucose 219 H 162 H 179 H 05/04/18 05/04/18 05/04/18 18:00 17:03 16:10 POC Glucose 240 H 293 H 329 H 05/04/18 05/04/18 05/04/18 14:56 14:06 13:01 POC Glucose 396 H 376 H 353 H 05/03/18 05/03/18 05/03/18 16:01 14:29 14:28 POC Glucose Greater than 550 H* Greater than 550 H* Greater than 550 H* 05/02/18 05/02/18 05/02/18 22:08 20:03 18:26 POC Glucose Greater than 550 H* Greater than 550 H* Greater than 550 H* 05/02/18 17:12 POC Glucose Greater than 550 H* EKG Reviewed by me: Yes Phys Exam - Physical Examination Constitutional: NAD HEENT: PERRLA, moist MMs, sclera anicteric Neck: no JVD, supple Respiratory: no wheezing, no rales, no rhonchi Cardiovascular: RRR, no significant murmur Gastrointestinal: soft, non-tender, no distention, positive bowel sounds Musculoskeletal: no edema Neurological: non-focal, normal sensation Lymphatic: no nodes Psychiatric: normal affect Skin: no rash, normal turgor Dx/Plan (1) Symptomatic anemia Code(s): D64.9 - ANEMIA, UNSPECIFIED Status: Acute (2) Thrombocytopenia Code(s): D69.6 - THROMBOCYTOPENIA, UNSPECIFIED Status: Acute (3) CKD (chronic kidney disease), stage III Status: Chronic (4) Diabetes type 2, uncontrolled Code(s): E11.65 - TYPE 2 DIABETES MELLITUS WITH HYPERGLYCEMIA Status: Chronic (5) Hypersplenism Code(s): D73.1 - HYPERSPLENISM Status: Chronic (6) Obesity (BMI 30-39.9) Code(s): E66.9 - OBESITY, UNSPECIFIED Status: Chronic (7) Pancytopenia Code(s): D61.818 - OTHER PANCYTOPENIA Status: Chronic (8) Hyperglycemia due to type 2 diabetes mellitus Code(s): E11.65 - TYPE 2 DIABETES MELLITUS WITH HYPERGLYCEMIA Status: Acute Comment: worsened due to steroid - Plan cont current plan of care * decadron as per oncology * medication reviewed as below * symptomatic treatment * platelet improving * overall stable * if no need of insulin drip, then pt can be transferred to floor. Review of Systems - Review of Systems ENT: Nose Discharge. negative: Ear Pain, Ear Discharge, Nose Pain, Nose Congestion, Mouth Pain, Mouth Swelling, Throat Pain, Throat Swelling, Other Respiratory: Cough. negative: Dry, Shortness of Breath, Hemoptysis, SOB with Excertion, Pleuritic Pain, Sputum, Wheezing Cardiovascular: negative: chest pain, palpitations, orthopnea, paroxysmal nocturnal dyspnea, edema, light headedness, other Gastrointestinal: negative: Nausea, Vomiting, Abdominal Pain, Diarrhea, Constipation, Melena, Hematochezia, Other Genitourinary: negative: Dysuria, Frequency, Incontinence, Hematuria, Retention , Other Musculoskeletal: negative: Neck Pain, Shoulder Pain, Arm Pain, Back Pain, Hand Pain, Leg Pain, Foot Pain, Other Skin: negative: Rash, Lesions, Jose Manuel, Bruising, Other - Medications/Allergies Allergies/Adverse Reactions: Allergies Allergy/AdvReac Type Severity Reaction Status Date / Time cephalexin [From Keflex] Allergy Verified 05/03/18 01:21 lisinopril Allergy Verified 05/03/18 01:21 losartan Allergy Verified 05/03/18 01:21 sulfamethoxazole Allergy Verified 05/03/18 01:21 [From Bactrim] trimethoprim [From Bactrim] Allergy Verified 05/03/18 01:21 Medications: Current Medications Acetaminophen (Tylenol) 650 mg PO Q4H PRN PRN Reason: Headache/Fever/Mild Pain (1-3) Last Admin: 05/04/18 13:12 Dose: 650 mg Albuterol Sulfate (Proventil Hfa) 2 puff INH Q4H PRN PRN Reason: Wheezing Dextrose/Water (Dextrose 50%) 25 gm SLOW IVP PRN PRN PRN Reason: Hypoglycemia Glucagon (Glucagon) 1 mg IM PRN PRN PRN Reason: Hypoglycemia Guaifenesin/Dextromethorphan (Robitussin Dm) 15 ml PO Q4H PRN PRN Reason: Cough Dextrose/Water (D5w) 1,000 mls @ 0 mls/hr IV .Q0M PRN PRN Reason: Hypoglycemia Dexamethasone 40 mg/ Sodium (Chloride) 60 mls @ 100 mls/hr IVPB DAILY [facility] Stop: 05/09/18 09:00 Last Admin: 05/05/18 09:53 Dose: 60 mls Insulin Human Regular 100 (units/ Sodium Chloride) 101 mls @ 0 mls/hr IVPB INF [facility]; Protocol Last Admin: 05/04/18 03:06 Dose: 101 mls Insulin Glargine 30 units/ (Miscellaneous Medication) 0.3 mls @ 1 mls/hr SC BID [facility] Last Admin: 05/05/18 09:53 Dose: 0.3 mls Insulin Human Lispro (Humalog) 20 units SC AC [facility] Last Admin: 05/05/18 11:59 Dose: Not Given Insulin Human Lispro (Humalog) 0 units SC .BEDTIME SLIDING SC PRN PRN Reason: Bedtime Correctional Scale Insulin Human Lispro (Humalog) 0 units SC .AGGRESSIVE SLIDING PRN PRN Reason: Aggressive Correctional Scale Lorazepam (Ativan) 1 mg PO Q6H PRN PRN Reason: Anxiety Last Admin: 05/05/18 03:04 Dose: 1 mg Melatonin (Melatonin) 3 mg PO HS PRN PRN Reason: Insomnia Last Admin: 05/04/18 20:51 Dose: 3 mg Montelukast Sodium (Singulair) 10 mg PO QPM [facility] Last Admin: 05/04/18 20:51 Dose: 10 mg Nystatin (Mycostatin Powder) 15 gm TOP PRN PRN PRN Reason: Rash/Topical Irritation Last Admin: 05/02/18 03:52 Dose: 1 applic Ondansetron HCl (Zofran Odt) 4 mg PO Q6H PRN PRN Reason: Nausea/Vomiting Last Admin: 05/04/18 21:40 Dose: 4 mg Ondansetron HCl (Zofran) 4 mg IVP Q6H PRN PRN Reason: Nausea/Vomiting Pantoprazole Sodium (Protonix) 40 mg IVP DAILY [facility] Last Admin: 05/05/18 09:54 Dose: 40 mg Pregabalin (Lyrica) 25 mg PO BID [facility] Last Admin: 05/05/18 09:54 Dose: 25 mg Senna/Docusate Sodium (Senokot S) 2 tab PO BID PRN PRN Reason: Constipation Sodium Chloride (Normal Saline Pf) 10 ml FS PRN PRN PRN Reason: RECONSTITUTION Last Admin: 05/05/18 09:56 Dose: 10 ml
--- NOTE | 2018-05-05 13:47 | PRG ---
DATE OF SERVICE: 05/05/2018 SERVICE: Pulmonary Medicine. INTERVAL HISTORY: The patient is doing really well from respiratory standpoint. She is having a little bit of a cough today. She indicates having increasing shortness of breath, but again her review of systems is wilson positive. Denies any current fevers, chills, nausea, or vomiting. I do hear her coughing in the room. PHYSICAL EXAMINATION: VITAL SIGNS: Afebrile, pulse 85, blood pressure 95/55, respirations 16, and saturation 100% on room air. GENERAL: The patient is awake and alert, in no apparent distress. LUNGS: OK air entry. There is a slightly prolonged expiratory phase, and I do appreciate some polyphonic wheezing as well as dependent crackles. HEART: Normal rate and regular. ABDOMEN: Soft, nontender, and nondistended. Bowel sounds are positive. MUSCULOSKELETAL: No cyanosis or clubbing. No pitting in the bilateral lower extremities. NEUROLOGIC: Grossly nonfocal. LABORATORY DATA: WBC 3.6, hemoglobin 7.8, and platelets 28,000 and roughly stable to improving. Blood sugar ranges from 89 to 163. Influenza A and B are unremarkable. ASSESSMENT: 1. Pancytopenia. 2. Type 2 diabetes mellitus with hyperglycemia. 3. Chronic kidney disease, stage 3. 4. Asthma with minimal exacerbation. DISCUSSION AND PLAN: The patient has had her last big dose of steroids. Hopefully, we will be able to have better control of her blood sugars. We will now be backing off on her insulin and watching for any hypoglycemic episodes. She is on her home long- acting insulin. We will likely need to drop her short-acting insulin through time carefully. From my perspective, she is stable for transition out of the IMCU to the oncology floor. We will make certain that she is on her home inhalers to prevent any type of asthma flare. She certainly has enough steroids on board. Job ID: [id number] [id number]
[2018-05-05] MEDS: Ondansetron ODT 4 MG TAB PO PRN ×2 (15:44→22:11)
[2018-05-05] MEDS: Cepastat Lozenges 1 LOZ PO PRN (16:05)
[2018-05-05] MEDS: Acetaminophen 325 MG TAB PO PRN (21:20)
[2018-05-05] MEDS: Montelukast Sodium 10 mg Tablet PO SCH (21:21)
[2018-05-05] MEDS: Melatonin 3 MG TAB PO PRN (22:13)
[2018-05-05] MEDS ORDERED: Lactated Ringer's 500 ML IV SCH (23:00)
[2018-05-05] MEDS: Lactated Ringer's 1,000 ML IV SCH (23:24)
[2018-05-06] MEDS: Acetaminophen 325 MG TAB PO PRN ×3 (03:26→21:56)
[2018-05-06] MEDS: Lactated Ringer's 1,000 ML IV SCH ×2 (05:46→18:27)
[2018-05-06] MEDS: Dexamethasone 40 MG in Sodium Chloride 0.9% 50 ML IVPB SCH (08:24)
[2018-05-06] MEDS: HumaLOG 300 UNITS/3 ML VIAL SC SCH ×3 (08:25→18:09)
[2018-05-06] MEDS: Pantoprazole 40 MG VIAL IVP SCH (08:25)
[2018-05-06] MEDS ORDERED: Insulin Glargine 60 UNITS in Pre-Filled Syringe 1 EACH SC SCH ×2 (09:00→21:00)
[2018-05-06] MEDS: Lorazepam 1 MG TAB PO PRN ×2 (09:22→22:43)
[2018-05-06] MEDS: Senokot S 8.6-50 MG TAB PO PRN (09:22)
[2018-05-06] MEDS: Pregabalin 25 MG CAP PO SCH ×2 (09:22→21:54)
--- NOTE | 2018-05-06 10:25 | PDOC.PN ---
- Subjective Encounter Start Date: 05/06/18 Encounter Start Time: 07:45 Patient seen and examined. No new complaints. No overnight events - Objective Resuscitation Status - Order Detail: 05/01/18 19:15 Resuscitation Status Routine Resuscitation Status: FULL: Full Resuscitation MAR Reviewed: Yes Vital Signs & Weight: Vital Signs (12 hours) Temp Pulse Resp BP BP Pulse Ox 05/06/18 07:47 97.7 F 87 16 113/76 100 05/06/18 07:17 67 20 99 05/06/18 04:00 97.5 F L 67 20 121/67 99 05/06/18 00:46 97 12 99 05/06/18 00:00 97.7 F 97 20 125/74 99 Weight Admit Weight 203 lb 7 oz Weight 205 lb 1.6 oz Most Recent Monitor Data Heart Rate from ECG 90 NIBP 95/55 NIBP BP-Mean 68 Respiration from ECG 21 SpO2 98 I&O: 05/05/18 05/06/18 05/07/18 06:59 06:59 06:59 Intake Total 1750 1450 Output Total 1850 875 Balance -100 575 Result Diagrams: 05/05/18 05:34 05/04/18 06:50 Additional Labs: Accuchecks 05/06/18 05/06/18 05/05/18 03:30 01:26 22:44 POC Glucose 316 H 435 H Greater than 550 H* 05/05/18 05/05/18 05/05/18 20:03 19:48 16:35 POC Glucose Greater than 550 H* Greater than 550 H* 401 H 05/05/18 05/03/18 05/03/18 11:07 16:01 14:29 POC Glucose 169 H Greater than 550 H* Greater than 550 H* 05/03/18 05/02/18 05/02/18 14:28 22:08 20:03 POC Glucose Greater than 550 H* Greater than 550 H* Greater than 550 H* 05/02/18 05/02/18 18:26 17:12 POC Glucose Greater than 550 H* Greater than 550 H* Phys Exam - Physical Examination Constitutional: NAD HEENT: PERRLA, moist MMs, sclera anicteric Neck: no JVD, supple Respiratory: no wheezing, no rales, no rhonchi Cardiovascular: RRR, no significant murmur, no rub Gastrointestinal: soft, non-tender, no distention, positive bowel sounds Musculoskeletal: no edema, pulses present Neurological: non-focal, normal sensation Lymphatic: no nodes Psychiatric: normal affect Skin: no rash, normal turgor Dx/Plan (1) Symptomatic anemia Code(s): D64.9 - ANEMIA, UNSPECIFIED Status: Acute (2) Thrombocytopenia Code(s): D69.6 - THROMBOCYTOPENIA, UNSPECIFIED Status: Acute (3) CKD (chronic kidney disease), stage III Status: Chronic (4) Diabetes type 2, uncontrolled Code(s): E11.65 - TYPE 2 DIABETES MELLITUS WITH HYPERGLYCEMIA Status: Chronic (5) Hypersplenism Code(s): D73.1 - HYPERSPLENISM Status: Chronic (6) Obesity (BMI 30-39.9) Code(s): E66.9 - OBESITY, UNSPECIFIED Status: Chronic (7) Pancytopenia Code(s): D61.818 - OTHER PANCYTOPENIA Status: Chronic (8) Hyperglycemia due to type 2 diabetes mellitus Code(s): E11.65 - TYPE 2 DIABETES MELLITUS WITH HYPERGLYCEMIA Status: Acute Comment: worsened due to steroid - Plan cont current plan of care * i will add doxycycline for her cough * decadron will be stopped as she is done with 4 days as per oncology * medication reviewed as below * symptomatic treatment. * increase lantus and control blood sugar, expecting to get better now after stopping steroid Review of Systems - Review of Systems ENT: negative: Ear Pain, Ear Discharge, Nose Pain, Nose Discharge, Nose Congestion, Mouth Pain, Mouth Swelling, Throat Pain, Throat Swelling, Other Respiratory: Cough. negative: Dry, Shortness of Breath, Hemoptysis, SOB with Excertion, Pleuritic Pain, Sputum, Wheezing Cardiovascular: negative: chest pain, palpitations, orthopnea, paroxysmal nocturnal dyspnea, edema, light headedness, other Gastrointestinal: negative: Nausea, Vomiting, Abdominal Pain, Diarrhea, Constipation, Melena, Hematochezia, Other Genitourinary: negative: Dysuria, Frequency, Incontinence, Hematuria, Retention , Other Musculoskeletal: negative: Neck Pain, Shoulder Pain, Arm Pain, Back Pain, Hand Pain, Leg Pain, Foot Pain, Other Skin: negative: Rash, Lesions, Jose Manuel, Bruising, Other - Medications/Allergies Allergies/Adverse Reactions: Allergies Allergy/AdvReac Type Severity Reaction Status Date / Time No Known Allergies Allergy Unverified 05/05/18 13:49 Medications: Current Medications Acetaminophen (Tylenol) 650 mg PO Q4H PRN PRN Reason: Headache/Fever/Mild Pain (1-3) Last Admin: 05/06/18 08:24 Dose: 650 mg Albuterol Sulfate (Proventil Hfa) 2 puff INH Q4H PRN PRN Reason: Wheezing Albuterol/Ipratropium (Duoneb) 3 ml NEB [id number] [facility] Last Admin: 05/06/18 07:17 Dose: 3 ml Dextrose/Water (Dextrose 50%) 25 gm SLOW IVP PRN PRN PRN Reason: Hypoglycemia Glucagon (Glucagon) 1 mg IM PRN PRN PRN Reason: Hypoglycemia Guaifenesin/Dextromethorphan (Robitussin Dm) 15 ml PO Q4H PRN PRN Reason: Cough Last Admin: 05/05/18 21:19 Dose: 15 ml Dextrose/Water (D5w) 1,000 mls @ 0 mls/hr IV .Q0M PRN PRN Reason: Hypoglycemia Dexamethasone 40 mg/ Sodium (Chloride) 60 mls @ 100 mls/hr IVPB DAILY [facility] Stop: 05/09/18 09:00 Last Admin: 05/06/18 08:24 Dose: 60 mls Lactated Ringer's (Lactated Ringer's) 1,000 mls @ 100 mls/hr IV .Q10H [facility] Last Admin: 05/06/18 05:46 Dose: 1,000 mls Insulin Glargine 60 units/ (Miscellaneous Medication) 0.6 mls @ 0 mls/hr SC HS [facility] Insulin Glargine 60 units/ (Miscellaneous Medication) 0.6 mls @ 0 mls/hr SC QAM [facility] Last Admin: 05/06/18 08:23 Dose: 0.6 mls Insulin Human Lispro (Humalog) 0 units SC .BEDTIME SLIDING SC PRN PRN Reason: Bedtime Correctional Scale Insulin Human Lispro (Humalog) 0 units SC .AGGRESSIVE SLIDING PRN PRN Reason: Aggressive Correctional Scale Last Admin: 05/05/18 21:28 Dose: 13 unit Insulin Human Lispro (Humalog) 20 units SC AC [facility] Last Admin: 05/06/18 08:25 Dose: 20 unit Lorazepam (Ativan) 1 mg PO Q6H PRN PRN Reason: Anxiety Last Admin: 05/06/18 09:22 Dose: 1 mg Melatonin (Melatonin) 3 mg PO HS PRN PRN Reason: Insomnia Last Admin: 05/05/18 22:13 Dose: 3 mg Montelukast Sodium (Singulair) 10 mg PO QPM [facility] Last Admin: 05/05/18 21:21 Dose: 10 mg Nystatin (Mycostatin Powder) 15 gm TOP PRN PRN PRN Reason: Rash/Topical Irritation Last Admin: 05/02/18 03:52 Dose: 1 applic Ondansetron HCl (Zofran Odt) 4 mg PO Q6H PRN PRN Reason: Nausea/Vomiting Last Admin: 05/05/18 22:11 Dose: 4 mg Ondansetron HCl (Zofran) 4 mg IVP Q6H PRN PRN Reason: Nausea/Vomiting Pantoprazole Sodium (Protonix) 40 mg IVP DAILY [facility] Last Admin: 05/06/18 08:25 Dose: 40 mg Pregabalin (Lyrica) 25 mg PO BID [facility] Last Admin: 05/06/18 09:22 Dose: 25 mg Senna/Docusate Sodium (Senokot S) 2 tab PO BID PRN PRN Reason: Constipation Last Admin: 05/06/18 09:22 Dose: 2 tab Sodium Chloride (Normal Saline Pf) 10 ml FS PRN PRN PRN Reason: RECONSTITUTION Last Admin: 05/05/18 09:56 Dose: 10 ml Throat Lozenges (Cepastat Lozenges) 1 tere PO Q2H PRN PRN Reason: Sore Throat Last Admin: 05/05/18 16:05 Dose: 1 tere
[2018-05-06] MEDS ORDERED: Doxycycline 100 MG CAP PO SCH (10:45)
[2018-05-06 12:00] LABS: Hemoglobin 8.6 g/dL (12.0-16.0); Mean Corpuscular HGB CONC 31.9 g/dL (32.0-36.0); Mean Corpuscular Hemoglobin 26.2 pg (27.0-31.0); Mean Corpuscular Volume 82.2 fL (78.0-98.0); Mean Platelet Volume 11.8 fL (7.4-10.4); Platelet Count 38 thou/uL (130-400); RBC Distribution Width 15.2 % (11.5-14.5); Red Blood Cell (RBC) Count 3.27 mill/uL (4.20-5.40); White Blood Cell (WBC) Count 3.6 thou/uL (4.8-10.8)
[2018-05-06] MEDS: Doxycycline 100 MG CAP PO SCH ×2 (12:11→21:54)
[2018-05-06 12:34] LABS: Band 4 % (5-11); Hypochromia SLIGHT = 6-15 cells (100X) (0-5/hpf); Lymphocytes 22 % (21-51); MDiff Complete? YES; Metamyelocyte 1 % (0-0); Monocytes 1 % (0-10); Myelocyte 1 % (0-0); Neutrophil 69 % (42-75); Nucleated RBC 2 % (0); Platelet Morphology Comment Appears Decreased; Polychromasia MODERATE = 3-4 cells (100X) (0-2/hpf); Reactive Lymphocytes 2 % (0-10); Stomatocytes SLIGHT = 2-5 cells (100X) (0-1/hpf); Tear Drops SLIGHT = 2-5 cells (100X) (0-1/hpf)
--- NOTE | 2018-05-06 16:28 | PRG ---
DATE OF SERVICE: 05/06/2018 SERVICE: Pulmonary Medicine. INTERVAL HISTORY: The patient is doing okay from Respiratory standpoint. If we ask her, however, everything is going terrible. There has been no interval change to her condition today. Her breathing is basically at baseline. She is wheezing a little bit less. She indicates she has a cough, but she is not bringing up any sputum presently. PHYSICAL EXAMINATION: VITAL SIGNS: Afebrile, pulse 87, blood pressure 113/76, respirations 16, and saturation 100% on room air. GENERAL: The patient is awake and alert, in no apparent distress. LUNGS: Decent air entry. Crackles, wheezing, and rhonchi are all present. She is moving good air though. There is a slightly prolonged expiratory phase. HEART: Normal rate, regular. ABDOMEN: Soft, nontender, and nondistended. Bowel sounds are positive. MUSCULOSKELETAL: No cyanosis or clubbing. No pitting in the bilateral lower extremities. NEUROLOGIC: Grossly nonfocal. LABORATORY DATA: Blood sugar ranges from 316 to greater than 550. WBC 3.6, hemoglobin 8.6, and platelets 38. ASSESSMENT: 1. Pancytopenia. 2. Type 2 diabetes mellitus with hyperglycemia. 3. Chronic kidney disease, 3. 4. Asthma without current exacerbation. DISCUSSION AND PLAN: We will continue our steroids directed at her pancytopenia. Nebulized medications will be continued through time. If the patient has increasing respiratory difficulties, please give me a phone call. At this point, however, she has no further requirements for inpatient Pulmonary/Critical Care opinion, and I will sign off. Please call with additional questions or concerns through time. Job ID: [id number]
[2018-05-06] MEDS ORDERED: HumaLOG 300 UNITS/3 ML VIAL SC SCH (17:45)
[2018-05-06 20:55] LABS: Glucose 723 mg/dL (70-105)
[2018-05-06] MEDS ORDERED: Insulin Regular 300 UNITS/3 ML VIAL SC SCH (21:30)
[2018-05-06] MEDS ORDERED: Sodium Chloride 0.9% 1,000 ML IV SCH (21:30)
[2018-05-06 21:52] LABS: Anion Gap 18 mmol/L (10-20); BUN (Urea Nitrogen) 34 mg/dL (7.0-18.7); Calc. Creatinine Clearance 66 mL/min (70-130); Calcium 8.9 mg/dL (7.8-10.44); Carbon Dioxide 15 mmol/L (22-29); Chloride 103 mmol/L (98-107); Estimated GFR-MDRD 32; Sodium 131 mmol/L (136-145)
[2018-05-06 21:55] LABS: Glucose 695 mg/dL (70-105)
[2018-05-06] MEDS: Montelukast Sodium 10 mg Tablet PO SCH (21:56)
[2018-05-06] MEDS ORDERED: D5 1/2 NS w/20 mEq KCL 1,000 ML IV PRN (22:46)
[2018-05-06] MEDS ORDERED: Sodium Chloride 0.9% 1,000 ML IV PRN ×4 (22:46)
[2018-05-06] MEDS ORDERED: CCU Electrolyte Replacement 1 EACH IVPB ONE (22:46)
[2018-05-06] MEDS ORDERED: NS 0.9% w/ 20 MEQ KCL 1,000 ML IV PRN ×2 (22:46)
[2018-05-06] MEDS ORDERED: Dextrose 5 %-0.45 % NaCl 1,000 ML IV PRN (22:46)
--- NOTE | 2018-05-06 22:52 | PDOC.EVN ---
Event Note - Event Note Event Note: blood sugar has continued to be uncontrolled there is decreaesd in bicarb=15, if not improving we will place her on insulin drip, and dka protocol , transfer to [facility] for protocol management.
[2018-05-06] MEDS ORDERED: Magnesium Oxide 400 MG TAB PO PRN ×2 (22:56)
[2018-05-06] MEDS ORDERED: Potassium Phosphate 12 MMOL in Sodium Chloride 0.9% 250 ML 250 ML IV PRN (22:56)
[2018-05-06] MEDS ORDERED: Potassium Chloride 40 MEQ in Sodium Chloride 0.9% 250 ML 250 ML IVPB PRN (22:56)
[2018-05-06] MEDS ORDERED: Potassium Chloride 20 MEQ TAB PO PRN (22:56)
[2018-05-06] MEDS ORDERED: Potassium Phosphate 15 MMOL in Sodium Chloride 0.9% 250 ML 250 ML IV PRN (22:56)
[2018-05-06] MEDS ORDERED: Potassium Chloride 40 MEQ in Premix Bag 1 BAG IVPB PRN (22:56)
[2018-05-06] MEDS ORDERED: Potassium Phosphate 9 MMOL in Sodium Chloride 0.9% 100 ML IVPB PRN (22:56)
[2018-05-06] MEDS ORDERED: CCU ELECTROLYTE REPLACEMENT PROTOCOL FS PRN (22:56)
[2018-05-06] MEDS ORDERED: Magnesium 2 GM/50 ML 2 GM in Premix Bag 1 BAG IVPB PRN (22:56)
[2018-05-06] MEDS ORDERED: HUMULIN R 100 UNITS in Sodium Chloride 0.9% 100 ML IVPB SCH (23:00)
[2018-05-06 23:38] LABS: Anion Gap 17 mmol/L (10-20); BUN (Urea Nitrogen) 33 mg/dL (7.0-18.7); Calc. Creatinine Clearance 73 mL/min (70-130); Calcium 8.5 mg/dL (7.8-10.44); Carbon Dioxide 15 mmol/L (22-29); Chloride 107 mmol/L (98-107); Estimated GFR-MDRD 37; Glucose 550 mg/dL (70-105); Potassium 5.2 mmol/L (3.5-5.1); Sodium 134 mmol/L (136-145)
[2018-05-07] MEDS: Ondansetron ODT 4 MG TAB PO PRN (02:25)
[2018-05-07 02:29] LABS: Platelet Count 26 thou/uL (130-400)
[2018-05-07 02:41] LABS: Anion Gap 17 mmol/L (10-20); BUN (Urea Nitrogen) 32 mg/dL (7.0-18.7); Calc. Creatinine Clearance 85 mL/min (70-130); Calcium 8.7 mg/dL (7.8-10.44); Carbon Dioxide 18 mmol/L (22-29); Chloride 109 mmol/L (98-107); Estimated GFR-MDRD 43; Glucose 292 mg/dL (70-105); Potassium 4.7 mmol/L (3.5-5.1); Sodium 139 mmol/L (136-145)
[2018-05-07 02:43] LABS: Anisocytosis SLIGHT = 6-15 cells (100X) (0-5/hpf); Band 5 % (5-11); Hemoglobin 7.6 g/dL (12.0-16.0); Lymphocytes 35 % (21-51); MDiff Complete? YES; Mean Corpuscular HGB CONC 32.9 g/dL (32.0-36.0); Mean Corpuscular Hemoglobin 26.4 pg (27.0-31.0); Mean Corpuscular Volume 80.2 fL (78.0-98.0); Mean Platelet Volume 11.6 fL (7.4-10.4); Monocytes 8 % (0-10); Neutrophil 52 % (42-75); Nucleated RBC 1 % (0); Ovalocytes SLIGHT = 2-5 cells (100X) (0-1/hpf); Platelet Morphology Comment Appears Decreased; RBC Distribution Width 15.5 % (11.5-14.5); Red Blood Cell (RBC) Count 2.88 mill/uL (4.20-5.40); Tear Drops SLIGHT = 2-5 cells (100X) (0-1/hpf); White Blood Cell (WBC) Count 2.9 thou/uL (4.8-10.8)
[2018-05-07] MEDS: Diabetic Tussin DM 5 ML UDCUP PO PRN ×2 (03:31→08:49)
[2018-05-07] MEDS: Melatonin 3 MG TAB PO PRN ×2 (03:32→23:55)
[2018-05-07] MEDS ORDERED: HumaLOG 300 UNITS/3 ML VIAL SC SCH (07:30)
[2018-05-07 08:01] LABS: Anion Gap 17 mmol/L (10-20); BUN (Urea Nitrogen) 30 mg/dL (7.0-18.7); Calc. Creatinine Clearance 102 mL/min (70-130); Carbon Dioxide 17 mmol/L (22-29); Chloride 111 mmol/L (98-107); Estimated GFR-MDRD 54; Glucose 95 mg/dL (70-105); Potassium 4.4 mmol/L (3.5-5.1); Sodium 141 mmol/L (136-145)
[2018-05-07] MEDS: Doxycycline 100 MG CAP PO SCH ×2 (08:42→20:10)
[2018-05-07] MEDS: Cepastat Lozenges 1 LOZ PO PRN (08:42)
[2018-05-07] MEDS: Pantoprazole 40 MG VIAL IVP SCH (08:42)
[2018-05-07] MEDS: Pregabalin 25 MG CAP PO SCH ×2 (08:48→20:18)
[2018-05-07] MEDS: Dexamethasone 40 MG in Sodium Chloride 0.9% 50 ML IVPB SCH (08:54)
[2018-05-07] MEDS: Lorazepam 1 MG TAB PO PRN ×2 (08:54→20:13)
[2018-05-07] MEDS: HumaLOG 300 UNITS/3 ML VIAL SC SCH ×2 (11:23→17:11)
--- NOTE | 2018-05-07 16:34 | PDOC.PN ---
- Subjective Encounter Start Date: 05/07/18 Encounter Start Time: 08:40 Pt seen for followup re: thrombocytopenia. Reports cough. No fevers. Sputum+ - Objective Resuscitation Status - Order Detail: 05/01/18 19:15 Resuscitation Status Routine Resuscitation Status: FULL: Full Resuscitation MAR Reviewed: Yes Vital Signs & Weight: Vital Signs (12 hours) Temp Pulse Resp BP Pulse Ox 05/07/18 14:00 101 H 16 05/07/18 07:52 97.3 F L 101 H 18 128/77 98 05/07/18 06:32 99 14 99 Weight Admit Weight 203 lb 7 oz Weight 205 lb 1.6 oz Most Recent Monitor Data Heart Rate from ECG 90 NIBP 95/55 NIBP BP-Mean 68 Respiration from ECG 21 SpO2 98 I&O: 05/06/18 05/07/18 05/08/18 06:59 06:59 06:59 Intake Total 1450 1600 Output Total 875 Balance 575 1600 Result Diagrams: 05/07/18 02:16 05/07/18 07:28 Additional Labs: Accuchecks 05/07/18 05/07/18 05/07/18 11:18 06:35 01:39 POC Glucose 238 H 113 H 341 H 05/06/18 05/06/18 19:55 17:08 POC Glucose Greater than 550 H* Greater than 550 H* Labs reviewed by me Phys Exam - Physical Examination Obese HEENT: moist MMs Neck: supple Respiratory: clear to auscultation bilateral Cardiovascular: RRR Gastrointestinal: soft Neurological: moves all 4 limbs Psychiatric: normal affect Dx/Plan (1) Thrombocytopenia Code(s): D69.6 - THROMBOCYTOPENIA, UNSPECIFIED Status: Acute Comment: Pt receiving steroids. Hypersplenism vs ? ITP (2) Symptomatic anemia Code(s): D64.9 - ANEMIA, UNSPECIFIED Status: Acute Comment: Hb 7.6 today. s /p one unit pRBC transfusion. (3) Diabetes type 2, uncontrolled Code(s): E11.65 - TYPE 2 DIABETES MELLITUS WITH HYPERGLYCEMIA Status: Chronic Comment: continue accuchecks, insulin (4) Asthma Code(s): J45.909 - UNSPECIFIED ASTHMA, UNCOMPLICATED Status: Chronic Comment : continue bronchodilators - Plan * . Review of Systems - Review of Systems Constitutional: other. negative: fever, chills, sweats, weakness, malaise Respiratory: Cough, Sputum. negative: Dry, Shortness of Breath, Hemoptysis, SOB with Excertion, Pleuritic Pain, Wheezing Cardiovascular: negative: chest pain, palpitations, orthopnea, paroxysmal nocturnal dyspnea, edema, light headedness - Medications/Allergies Allergies/Adverse Reactions: Allergies Allergy/AdvReac Type Severity Reaction Status Date / Time No Known Allergies Allergy Unverified 05/05/18 13:49 Medications: Current Medications Acetaminophen (Tylenol) 650 mg PO Q4H PRN PRN Reason: Headache/Fever/Mild Pain (1-3) Last Admin: 05/06/18 21:56 Dose: 650 mg Albuterol Sulfate (Proventil Hfa) 2 puff INH Q4H PRN PRN Reason: Wheezing Albuterol/Ipratropium (Duoneb) 3 ml NEB [id number] COUNTS INCLUDE 234 BEDS AT [facility] Last Admin: 05/07/18 14:00 Dose: 3 ml Dextrose/Water (Dextrose 50%) 25 gm SLOW IVP PRN PRN PRN Reason: Hypoglycemia Doxycycline Hyclate (Vibramycin) 100 mg PO BID COUNTS INCLUDE 234 BEDS AT [facility] Last Admin: 05/07/18 08:42 Dose: 100 mg Glucagon (Glucagon) 1 mg IM PRN PRN PRN Reason: Hypoglycemia Guaifenesin/Dextromethorphan (Diabetic Tussin Dm) 15 ml PO Q4H PRN PRN Reason: Cough Last Admin: 05/07/18 08:49 Dose: 15 ml Dextrose/Water (D5w) 1,000 mls @ 0 mls/hr IV .Q0M PRN PRN Reason: Hypoglycemia Dexamethasone 40 mg/ Sodium (Chloride) 60 mls @ 100 mls/hr IVPB DAILY COUNTS INCLUDE 234 BEDS AT [facility] Stop: 05/10/18 23:59 Last Admin: 05/07/18 08:54 Dose: 60 mls Insulin Glargine 70 units/ (Miscellaneous Medication) 0.7 mls @ 0 mls/hr SC BID COUNTS INCLUDE 234 BEDS AT [facility] Insulin Human Lispro (Humalog) 0 units SC .AGGRESSIVE SLIDING PRN; Protocol PRN Reason: AGGRESSIVE SLIDING SCALE Insulin Human Lispro (Humalog) 20 units SC [facility] Last Admin: 05/07/18 11:23 Dose: 20 unit Lorazepam (Ativan) 1 mg PO Q6H PRN PRN Reason: Anxiety Last Admin: 05/07/18 08:54 Dose: 1 mg Melatonin (Melatonin) 3 mg PO HS PRN PRN Reason: Insomnia Last Admin: 05/07/18 03:32 Dose: 3 mg Montelukast Sodium (Singulair) 10 mg PO QPM COUNTS INCLUDE 234 BEDS AT [facility] Last Admin: 05/06/18 21:56 Dose: 10 mg Nystatin (Mycostatin Powder) 15 gm TOP PRN PRN PRN Reason: Rash/Topical Irritation Last Admin: 05/02/18 03:52 Dose: 1 applic Ondansetron HCl (Zofran Odt) 4 mg PO Q6H PRN PRN Reason: Nausea/Vomiting Last Admin: 05/07/18 02:25 Dose: 4 mg Ondansetron HCl (Zofran) 4 mg IVP Q6H PRN PRN Reason: Nausea/Vomiting Pantoprazole Sodium (Protonix) 40 mg IVP DAILY [facility]S INCLUDE 234 BEDS AT [facility] Last Admin: 05/07/18 08:42 Dose: 40 mg Pregabalin (Lyrica) 25 mg PO BID COUNTS INCLUDE 234 BEDS AT [facility] Last Admin: 05/07/18 08:48 Dose: 25 mg Senna/Docusate Sodium (Senokot S) 2 tab PO BID PRN PRN Reason: Constipation Last Admin: 05/06/18 09:22 Dose: 2 tab Sodium Chloride (Normal Saline Pf) 10 ml FS PRN PRN PRN Reason: RECONSTITUTION Last Admin: 05/05/18 09:56 Dose: 10 ml Throat Lozenges (Cepastat Lozenges) 1 tere PO Q2H PRN PRN Reason: Sore Throat Last Admin: 05/07/18 08:42 Dose: 1 tere
[2018-05-07] MEDS: Insulin Glargine 70 UNITS in Pre-Filled Syringe 1 EACH SC SCH (20:11)
[2018-05-07] MEDS: Montelukast Sodium 10 mg Tablet PO SCH (20:12)
[2018-05-07] MEDS: Acetaminophen 325 MG TAB PO PRN (20:13)
[2018-05-08] MEDS: Acetaminophen 325 MG TAB PO PRN (00:01)
[2018-05-08] MEDS: HumaLOG 300 UNITS/3 ML VIAL SC PRN ×4 (00:02→20:54)
[2018-05-08] MEDS: Lorazepam 1 MG TAB PO PRN ×3 (05:27→20:53)
[2018-05-08] MEDS: Diabetic Tussin DM 5 ML UDCUP PO PRN (06:50)
[2018-05-08] MEDS: Doxycycline 100 MG CAP PO SCH ×2 (08:46→20:53)
[2018-05-08] MEDS: Insulin Glargine 70 UNITS in Pre-Filled Syringe 1 EACH SC SCH ×2 (08:46→20:53)
[2018-05-08] MEDS: Pantoprazole 40 MG VIAL IVP SCH (08:47)
[2018-05-08] MEDS: Dexamethasone 40 MG in Sodium Chloride 0.9% 50 ML IVPB SCH (08:47)
[2018-05-08] MEDS: HumaLOG 300 UNITS/3 ML VIAL SC SCH ×3 (08:47→17:51)
[2018-05-08 10:17] LABS: #Lymphocytes 1.2 thou/uL (1.20-3.40); #Monocytes 0.2 thou/uL (0.11-0.59); #Neutrophils 1.5 thou/uL (1.40-6.50); %Basophils 1.3 % (0.0-1.0); %Eosinophils 1.4 % (0.0-10.0); %Lymphocytes 40.3 % (21.0-51.0); %Neutrophils 49.1 % (42.0-75.0); Hemoglobin 7.8 g/dL (12.0-16.0); Mean Corpuscular HGB CONC 31.8 g/dL (32.0-36.0); Mean Corpuscular Hemoglobin 26.3 pg (27.0-31.0); Mean Corpuscular Volume 82.9 fL (78.0-98.0); Mean Platelet Volume 12.1 fL (7.4-10.4); Platelet Count 22 thou/uL (130-400); RBC Distribution Width 16.8 % (11.5-14.5); Red Blood Cell (RBC) Count 2.95 mill/uL (4.20-5.40)
[2018-05-08 10:21] LABS: Anion Gap 12 mmol/L (10-20); BUN (Urea Nitrogen) 27 mg/dL (7.0-18.7); Calc. Creatinine Clearance 91 mL/min (70-130); Calcium 8.6 mg/dL (7.8-10.44); Carbon Dioxide 22 mmol/L (22-29); Chloride 107 mmol/L (98-107); Estimated GFR-MDRD 47; Glucose 250 mg/dL (70-105); Potassium 3.8 mmol/L (3.5-5.1); Sodium 137 mmol/L (136-145)
--- NOTE | 2018-05-08 15:14 | PDOC.PN ---
- Subjective Encounter Start Date: 05/08/18 Encounter Start Time: 09:00 Pt seen for followup re: thrombocytopenia. No new complaints. - Objective Resuscitation Status - Order Detail: 05/01/18 19:15 Resuscitation Status Routine Resuscitation Status: FULL: Full Resuscitation MAR Reviewed: Yes Vital Signs & Weight: Vital Signs (12 hours) Temp Pulse Resp BP Pulse Ox 05/08/18 11:28 100 18 98 05/08/18 06:45 97.8 F 101 H 18 110/70 98 05/08/18 06:25 101 H 18 98 Weight Admit Weight 203 lb 7 oz Weight 205 lb 1.6 oz Most Recent Monitor Data Heart Rate from ECG 90 NIBP 95/55 NIBP BP-Mean 68 Respiration from ECG 21 SpO2 98 I&O: 05/07/18 05/08/18 05/09/18 06:59 06:59 06:59 Intake Total 2410 Balance 2410 Result Diagrams: 05/08/18 09:51 05/08/18 09:51 Additional Labs: Accuchecks 05/08/18 05/08/18 05/07/18 11:20 05:07 23:58 POC Glucose 162 H 258 H 320 H 05/07/18 05/07/18 19:59 16:48 POC Glucose 191 H 116 H Labs reviewed by me Phys Exam - Physical Examination Obese HEENT: moist MMs Neck: supple Respiratory: clear to auscultation bilateral Cardiovascular: RRR Gastrointestinal: soft Neurological: moves all 4 limbs Psychiatric: normal affect Dx/Plan (1) Thrombocytopenia Code(s): D69.6 - THROMBOCYTOPENIA, UNSPECIFIED Status: Acute Comment: Pt receiving steroids. Oncology following. (2) Symptomatic anemia Code(s): D64.9 - ANEMIA, UNSPECIFIED Status: Acute Comment: Hb stable, 7.8 today (3) Diabetes type 2, uncontrolled Code(s): E11.65 - TYPE 2 DIABETES MELLITUS WITH HYPERGLYCEMIA Status: Chronic Comment: continue accuchecks, insulin (4) Asthma Code(s): J45.909 - UNSPECIFIED ASTHMA, UNCOMPLICATED Status: Chronic Comment : stable, continue bronchodilators - Plan * . Review of Systems - Review of Systems Cardiovascular: negative: chest pain, palpitations, orthopnea, paroxysmal nocturnal dyspnea, edema, light headedness Gastrointestinal: negative: Nausea, Vomiting, Abdominal Pain, Diarrhea, Constipation, Melena, Hematochezia - Medications/Allergies Allergies/Adverse Reactions: Allergies Allergy/AdvReac Type Severity Reaction Status Date / Time No Known Allergies Allergy Unverified 05/05/18 13:49 Medications: Current Medications Acetaminophen (Tylenol) 650 mg PO Q4H PRN PRN Reason: Headache/Fever/Mild Pain (1-3) Last Admin: 05/08/18 00:01 Dose: 650 mg Albuterol Sulfate (Proventil Hfa) 2 puff INH Q4H PRN PRN Reason: Wheezing Albuterol/Ipratropium (Duoneb) 3 ml NEB [id number] [facility] Last Admin: 05/08/18 11:28 Dose: 3 ml Dextrose/Water (Dextrose 50%) 25 gm SLOW IVP PRN PRN PRN Reason: Hypoglycemia Doxycycline Hyclate (Vibramycin) 100 mg PO BID [facility] Last Admin: 05/08/18 08:46 Dose: 100 mg Glucagon (Glucagon) 1 mg IM PRN PRN PRN Reason: Hypoglycemia Guaifenesin/Dextromethorphan (Diabetic Tussin Dm) 15 ml PO Q4H PRN PRN Reason: Cough Last Admin: 05/08/18 06:50 Dose: 15 ml Dextrose/Water (D5w) 1,000 mls @ 0 mls/hr IV .Q0M PRN PRN Reason: Hypoglycemia Dexamethasone 40 mg/ Sodium (Chloride) 60 mls @ 100 mls/hr IVPB DAILY [facility] Stop: 05/10/18 23:59 Last Admin: 05/08/18 08:47 Dose: 60 mls Insulin Glargine 70 units/ (Miscellaneous Medication) 0.7 mls @ 0 mls/hr SC BID [facility] Last Admin: 05/08/18 08:46 Dose: 0.7 mls Insulin Human Lispro (Humalog) 0 units SC .AGGRESSIVE SLIDING PRN; Protocol PRN Reason: AGGRESSIVE SLIDING SCALE Last Admin: 05/08/18 05:22 Dose: 9 unit Insulin Human Lispro (Humalog) 20 units SC [facility] Last Admin: 05/08/18 11:28 Dose: 20 unit Lorazepam (Ativan) 1 mg PO Q6H PRN PRN Reason: Anxiety Last Admin: 05/08/18 11:31 Dose: 1 mg Melatonin (Melatonin) 3 mg PO HS PRN PRN Reason: Insomnia Last Admin: 05/07/18 23:55 Dose: 3 mg Montelukast Sodium (Singulair) 10 mg PO QPM [facility] Last Admin: 05/07/18 20:12 Dose: 10 mg Nystatin (Mycostatin Powder) 15 gm TOP PRN PRN PRN Reason: Rash/Topical Irritation Last Admin: 05/02/18 03:52 Dose: 1 applic Ondansetron HCl (Zofran Odt) 4 mg PO Q6H PRN PRN Reason: Nausea/Vomiting Last Admin: 05/07/18 02:25 Dose: 4 mg Ondansetron HCl (Zofran) 4 mg IVP Q6H PRN PRN Reason: Nausea/Vomiting Pantoprazole Sodium (Protonix) 40 mg IVP DAILY [facility] Last Admin: 05/08/18 08:47 Dose: 40 mg Pregabalin (Lyrica) 25 mg PO BID [facility] Last Admin: 05/07/18 20:18 Dose: 25 mg Senna/Docusate Sodium (Senokot S) 2 tab PO BID PRN PRN Reason: Constipation Last Admin: 05/06/18 09:22 Dose: 2 tab Sodium Chloride (Normal Saline Pf) 10 ml FS PRN PRN PRN Reason: RECONSTITUTION Last Admin: 05/05/18 09:56 Dose: 10 ml Throat Lozenges (Cepastat Lozenges) 1 tere PO Q2H PRN PRN Reason: Sore Throat Last Admin: 05/07/18 08:42 Dose: 1 tere
[2018-05-08] MEDS: Pregabalin 25 MG CAP PO SCH ×2 (15:27→20:59)
[2018-05-08] MEDS: Montelukast Sodium 10 mg Tablet PO SCH (20:53)
[2018-05-08] MEDS: Melatonin 3 MG TAB PO PRN (22:29)
[2018-05-09] MEDS: HumaLOG 300 UNITS/3 ML VIAL SC PRN ×4 (01:25→21:05)
[2018-05-09] MEDS: Diabetic Tussin DM 5 ML UDCUP PO PRN (06:00)
[2018-05-09] MEDS: Lorazepam 1 MG TAB PO PRN ×3 (06:00→20:25)
[2018-05-09 07:04] LABS: Hemoglobin 8.7 g/dL (12.0-16.0); Mean Corpuscular HGB CONC 32.2 g/dL (32.0-36.0); Mean Corpuscular Hemoglobin 27.4 pg (27.0-31.0); Mean Platelet Volume 13.1 fL (7.4-10.4); Platelet Count 24 thou/uL (130-400); RBC Distribution Width 17.1 % (11.5-14.5); Red Blood Cell (RBC) Count 3.19 mill/uL (4.20-5.40); White Blood Cell (WBC) Count 3.3 thou/uL (4.8-10.8)
[2018-05-09 07:06] LABS: Anion Gap 16 mmol/L (10-20); BUN (Urea Nitrogen) 35 mg/dL (7.0-18.7); Calc. Creatinine Clearance 94 mL/min (70-130); Calcium 9.6 mg/dL (7.8-10.44); Carbon Dioxide 24 mmol/L (22-29); Chloride 103 mmol/L (98-107); Estimated GFR-MDRD 48; Glucose 198 mg/dL (70-105); Potassium 4.5 mmol/L (3.5-5.1); Sodium 138 mmol/L (136-145)
[2018-05-09 08:05] LABS: Anisocytosis SLIGHT = 6-15 cells (100X) (0-5/hpf); Band 9 % (5-11); Lymphocytes 33 % (21-51); MDiff Complete? YES; Metamyelocyte 2 % (0-0); Microcytosis SLIGHT = 6-15 cells (100X) (0-5/hpf); Monocytes 1 % (0-10); Myelocyte 3 % (0-0); Neutrophil 47 % (42-75); Nucleated RBC 4 % (0); Reactive Lymphocytes 5 % (0-10); Target Cells SLIGHT = 2-5 cells (100X) (0-1/hpf)
[2018-05-09] MEDS: Dexamethasone 40 MG in Sodium Chloride 0.9% 50 ML IVPB SCH (08:33)
[2018-05-09] MEDS: Insulin Glargine 70 UNITS in Pre-Filled Syringe 1 EACH SC SCH ×2 (08:33→20:24)
[2018-05-09] MEDS: Pantoprazole 40 MG VIAL IVP SCH (08:34)
[2018-05-09] MEDS: Doxycycline 100 MG CAP PO SCH ×2 (08:36→20:24)
[2018-05-09] MEDS: HumaLOG 300 UNITS/3 ML VIAL SC SCH ×3 (08:39→16:37)
[2018-05-09] MEDS: Pregabalin 25 MG CAP PO SCH ×2 (08:47→20:25)
--- NOTE | 2018-05-09 12:06 | PDOC.PN ---
- Subjective Encounter Start Date: 05/09/18 Encounter Start Time: 08:30 -: old records requested/rev Patient seen and examined. No new complaints. No overnight events - Objective Resuscitation Status - Order Detail: 05/01/18 19:15 Resuscitation Status Routine Resuscitation Status: FULL: Full Resuscitation MAR Reviewed: Yes Vital Signs & Weight: Vital Signs (12 hours) Temp Pulse Resp BP Pulse Ox 05/09/18 08:01 98.1 F 108 H 18 122/70 95 05/09/18 05:42 112 H 20 98 Weight Admit Weight 203 lb 7 oz Weight 205 lb 1.6 oz Most Recent Monitor Data Heart Rate from ECG 90 NIBP 95/55 NIBP BP-Mean 68 Respiration from ECG 21 SpO2 98 I&O: 05/08/18 05/09/18 05/10/18 06:59 06:59 06:59 Intake Total 2410 660 Balance 2410 660 Result Diagrams: 05/09/18 06:13 05/09/18 06:13 Additional Labs: Accuchecks 05/09/18 05/09/18 05/09/18 11:52 05:31 01:24 POC Glucose 269 H 245 H 483 H 05/08/18 05/08/18 19:50 16:33 POC Glucose 476 H 407 H Phys Exam - Physical Examination Constitutional: NAD HEENT: PERRLA, moist MMs, sclera anicteric Neck: no JVD, supple Respiratory: no wheezing, no rales, no rhonchi Cardiovascular: RRR, no significant murmur, no rub Gastrointestinal: soft, non-tender, no distention, positive bowel sounds Musculoskeletal: no edema, pulses present Neurological: non-focal, normal sensation Lymphatic: no nodes Psychiatric: normal affect Skin: no rash, normal turgor Dx/Plan (1) Idiopathic thrombocytopenic purpura (ITP) Code(s): D69.3 - IMMUNE THROMBOCYTOPENIC PURPURA Status: Acute (2) Symptomatic anemia Code(s): D64.9 - ANEMIA, UNSPECIFIED Status: Acute Comment: (3) CKD (chronic kidney disease), stage III Status: Chronic (4) Diabetes type 2, uncontrolled Code(s): E11.65 - TYPE 2 DIABETES MELLITUS WITH HYPERGLYCEMIA Status: Chronic Comment: continue accuchecks, insulin (5) Hypersplenism Code(s): D73.1 - HYPERSPLENISM Status: Chronic (6) Obesity (BMI 30-39.9) Code(s): E66.9 - OBESITY, UNSPECIFIED Status: Chronic (7) Pancytopenia Code(s): D61.818 - OTHER PANCYTOPENIA Status: Chronic (8) Hyperglycemia due to type 2 diabetes mellitus Code(s): E11.65 - TYPE 2 DIABETES MELLITUS WITH HYPERGLYCEMIA Status: Acute Comment: worsened due to steroid (9) Asthma Code(s): J45.909 - UNSPECIFIED ASTHMA, UNCOMPLICATED Status: Chronic Comment : stable, continue bronchodilators - Plan cont current plan of care, plan discussed w/ family * continue decardron as per hematology * increase insulin today * medication reviewed as below * symptomatic treatment. Review of Systems - Review of Systems ENT: negative: Ear Pain, Ear Discharge, Nose Pain, Nose Discharge, Nose Congestion, Mouth Pain, Mouth Swelling, Throat Pain, Throat Swelling, Other Respiratory: negative: Cough, Dry, Shortness of Breath, Hemoptysis, SOB with Excertion, Pleuritic Pain, Sputum, Wheezing Cardiovascular: negative: chest pain, palpitations, orthopnea, paroxysmal nocturnal dyspnea, edema, light headedness, other Gastrointestinal: negative: Nausea, Vomiting, Abdominal Pain, Diarrhea, Constipation, Melena, Hematochezia, Other Genitourinary: negative: Dysuria, Frequency, Incontinence, Hematuria, Retention , Other Musculoskeletal: negative: Neck Pain, Shoulder Pain, Arm Pain, Back Pain, Hand Pain, Leg Pain, Foot Pain, Other - Medications/Allergies Allergies/Adverse Reactions: Allergies Allergy/AdvReac Type Severity Reaction Status Date / Time No Known Allergies Allergy Unverified 05/05/18 13:49 Medications: Current Medications Acetaminophen (Tylenol) 650 mg PO Q4H PRN PRN Reason: Headache/Fever/Mild Pain (1-3) Last Admin: 05/08/18 00:01 Dose: 650 mg Albuterol Sulfate (Proventil Hfa) 2 puff INH Q4H PRN PRN Reason: Wheezing Albuterol/Ipratropium (Duoneb) 3 ml NEB [id number] [facility] Last Admin: 05/09/18 05:42 Dose: 3 ml Dextrose/Water (Dextrose 50%) 25 gm SLOW IVP PRN PRN PRN Reason: Hypoglycemia Doxycycline Hyclate (Vibramycin) 100 mg PO BID [facility] Last Admin: 05/09/18 08:36 Dose: 100 mg Glucagon (Glucagon) 1 mg IM PRN PRN PRN Reason: Hypoglycemia Guaifenesin/Dextromethorphan (Diabetic Tussin Dm) 15 ml PO Q4H PRN PRN Reason: Cough Last Admin: 05/09/18 06:00 Dose: 15 ml Dextrose/Water (D5w) 1,000 mls @ 0 mls/hr IV .Q0M PRN PRN Reason: Hypoglycemia Dexamethasone 40 mg/ Sodium (Chloride) 60 mls @ 100 mls/hr IVPB DAILY [facility] Stop: 05/10/18 23:59 Last Admin: 05/09/18 08:33 Dose: 60 mls Insulin Glargine 70 units/ (Miscellaneous Medication) 0.7 mls @ 0 mls/hr SC BID [facility] Last Admin: 05/09/18 08:33 Dose: 0.7 mls Insulin Human Lispro (Humalog) 0 units SC .AGGRESSIVE SLIDING PRN; Protocol PRN Reason: AGGRESSIVE SLIDING SCALE Last Admin: 05/09/18 05:48 Dose: 6 unit Insulin Human Lispro (Humalog) 30 units SC AC [facility] Last Admin: 05/09/18 11:55 Dose: 30 unit Lorazepam (Ativan) 1 mg PO Q6H PRN PRN Reason: Anxiety Last Admin: 05/09/18 06:00 Dose: 1 mg Melatonin (Melatonin) 3 mg PO HS PRN PRN Reason: Insomnia Last Admin: 05/08/18 22:29 Dose: 3 mg Montelukast Sodium (Singulair) 10 mg PO QPM [facility] Last Admin: 05/08/18 20:53 Dose: 10 mg Nystatin (Mycostatin Powder) 15 gm TOP PRN PRN PRN Reason: Rash/Topical Irritation Last Admin: 05/02/18 03:52 Dose: 1 applic Ondansetron HCl (Zofran Odt) 4 mg PO Q6H PRN PRN Reason: Nausea/Vomiting Last Admin: 05/07/18 02:25 Dose: 4 mg Ondansetron HCl (Zofran) 4 mg IVP Q6H PRN PRN Reason: Nausea/Vomiting Pantoprazole Sodium (Protonix) 40 mg IVP DAILY [facility] Last Admin: 05/09/18 08:34 Dose: 40 mg Pregabalin (Lyrica) 25 mg PO BID [facility] Last Admin: 05/09/18 08:47 Dose: Not Given Senna/Docusate Sodium (Senokot S) 2 tab PO BID PRN PRN Reason: Constipation Last Admin: 05/06/18 09:22 Dose: 2 tab Sodium Chloride (Normal Saline Pf) 10 ml FS PRN PRN PRN Reason: RECONSTITUTION Last Admin: 05/05/18 09:56 Dose: 10 ml Throat Lozenges (Cepastat Lozenges) 1 tere PO Q2H PRN PRN Reason: Sore Throat Last Admin: 05/07/18 08:42 Dose: 1 tere
[2018-05-09 14:27] VITALS: BMI 37.5
[2018-05-09] MEDS: Montelukast Sodium 10 mg Tablet PO SCH (20:25)
[2018-05-09] MEDS: Melatonin 3 MG TAB PO PRN (21:04)
[2018-05-10] MEDS: Acetaminophen 325 MG TAB PO PRN ×2 (01:32→05:06)
[2018-05-10] MEDS: Lorazepam 1 MG TAB PO PRN ×3 (05:09→17:05)
[2018-05-10] MEDS: Cepastat Lozenges 1 LOZ PO PRN (05:54)
[2018-05-10] MEDS: Doxycycline 100 MG CAP PO SCH ×2 (08:11→20:18)
[2018-05-10] MEDS: Dexamethasone 40 MG in Sodium Chloride 0.9% 50 ML IVPB SCH (08:11)
[2018-05-10] MEDS: Insulin Glargine 70 UNITS in Pre-Filled Syringe 1 EACH SC SCH ×2 (08:12→20:18)
[2018-05-10] MEDS: Pantoprazole 40 MG VIAL IVP SCH (08:13)
[2018-05-10 08:24] LABS: Anion Gap 14 mmol/L (10-20); BUN (Urea Nitrogen) 35 mg/dL (7.0-18.7); Calc. Creatinine Clearance 108 mL/min (70-130); Calcium 9.2 mg/dL (7.8-10.44); Carbon Dioxide 22 mmol/L (22-29); Chloride 105 mmol/L (98-107); Estimated GFR-MDRD 57; Glucose 117 mg/dL (70-105); Potassium 4.7 mmol/L (3.5-5.1); Sodium 136 mmol/L (136-145)
[2018-05-10 08:38] LABS: Hemoglobin 8.1 g/dL (12.0-16.0); Mean Corpuscular HGB CONC 31.6 g/dL (32.0-36.0); Mean Corpuscular Hemoglobin 26.4 pg (27.0-31.0); Mean Corpuscular Volume 83.4 fL (78.0-98.0); RBC Distribution Width 17.5 % (11.5-14.5); Red Blood Cell (RBC) Count 3.09 mill/uL (4.20-5.40); White Blood Cell (WBC) Count 4.2 thou/uL (4.8-10.8)
[2018-05-10] MEDS: HumaLOG 300 UNITS/3 ML VIAL SC SCH ×3 (09:40→17:13)
[2018-05-10] MEDS: Diabetic Tussin DM 5 ML UDCUP PO PRN (09:41)
[2018-05-10] MEDS: Pregabalin 25 MG CAP PO SCH ×2 (09:56→20:19)
--- NOTE | 2018-05-10 10:22 | PDOC.PN ---
- Subjective Encounter Start Date: 05/10/18 Encounter Start Time: 09:00 Patient seen and examined. No new complaints. No overnight events she has epigastric pain, mild headache, no dyspnea - Objective Resuscitation Status - Order Detail: 05/01/18 19:15 Resuscitation Status Routine Resuscitation Status: FULL: Full Resuscitation MAR Reviewed: Yes Vital Signs & Weight: Vital Signs (12 hours) Temp Pulse Resp BP BP Pulse Ox 05/10/18 08:13 99 05/10/18 07:54 97.5 F L 93 20 112/79 99 05/10/18 07:29 92 18 100 05/10/18 04:00 97.4 F L 94 20 110/76 98 05/10/18 01:13 97.7 F 106 H 20 113/73 100 Weight Admit Weight 203 lb 7 oz Weight 205 lb 1.6 oz Most Recent Monitor Data Heart Rate from ECG 90 NIBP 95/55 NIBP BP-Mean 68 Respiration from ECG 21 SpO2 98 I&O: 05/09/18 05/10/18 05/11/18 06:59 06:59 07:59 Intake Total 660 750 Balance 660 750 Result Diagrams: 05/10/18 07:00 05/10/18 07:00 Additional Labs: Accuchecks 05/10/18 05/10/18 05/10/18 09:13 04:42 00:49 POC Glucose 233 H 85 156 H 05/09/18 05/09/18 05/09/18 19:26 16:37 11:52 POC Glucose 360 H 446 H 269 H Phys Exam - Physical Examination Constitutional: NAD HEENT: PERRLA, moist MMs, sclera anicteric Neck: no JVD, supple Respiratory: no wheezing, no rales, no rhonchi Cardiovascular: RRR, no significant murmur, no rub Gastrointestinal: soft, non-tender, no distention, positive bowel sounds Musculoskeletal: no edema, pulses present Neurological: non-focal, normal sensation, moves all 4 limbs Lymphatic: no nodes Psychiatric: normal affect, A&O x 3 Skin: no rash, normal turgor Dx/Plan (1) Idiopathic thrombocytopenic purpura (ITP) Code(s): D69.3 - IMMUNE THROMBOCYTOPENIC PURPURA Status: Acute (2) Symptomatic anemia Code(s): D64.9 - ANEMIA, UNSPECIFIED Status: Acute Comment: (3) CKD (chronic kidney disease), stage III Status: Chronic (4) Diabetes type 2, uncontrolled Code(s): E11.65 - TYPE 2 DIABETES MELLITUS WITH HYPERGLYCEMIA Status: Chronic Comment: continue accuchecks, insulin (5) Hypersplenism Code(s): D73.1 - HYPERSPLENISM Status: Chronic (6) Obesity (BMI 30-39.9) Code(s): E66.9 - OBESITY, UNSPECIFIED Status: Chronic (7) Pancytopenia Code(s): D61.818 - OTHER PANCYTOPENIA Status: Chronic (8) Hyperglycemia due to type 2 diabetes mellitus Code(s): E11.65 - TYPE 2 DIABETES MELLITUS WITH HYPERGLYCEMIA Status: Acute Comment: worsened due to steroid (9) Asthma Code(s): J45.909 - UNSPECIFIED ASTHMA, UNCOMPLICATED Status: Chronic Comment : stable, continue bronchodilators - Plan cont current plan of care * seems like pt has not responded well to steroid only and that giving hyperglycemia * hematology considering IVIG vs rituxan * medication reviewed as below * symptomatic treatment * add protonix today. Review of Systems - Review of Systems ENT: negative: Ear Pain, Ear Discharge, Nose Pain, Nose Discharge, Nose Congestion, Mouth Pain, Mouth Swelling, Throat Pain, Throat Swelling, Other Respiratory: negative: Cough, Dry, Shortness of Breath, Hemoptysis, SOB with Excertion, Pleuritic Pain, Sputum, Wheezing Cardiovascular: negative: chest pain, palpitations, orthopnea, paroxysmal nocturnal dyspnea, edema, light headedness, other Gastrointestinal: negative: Nausea, Vomiting, Abdominal Pain, Diarrhea, Constipation, Melena, Hematochezia, Other Genitourinary: negative: Dysuria, Frequency, Incontinence, Hematuria, Retention , Other Musculoskeletal: negative: Neck Pain, Shoulder Pain, Arm Pain, Back Pain, Hand Pain, Leg Pain, Foot Pain, Other Skin: negative: Rash, Lesions, Jose Manuel, Bruising, Other - Medications/Allergies Allergies/Adverse Reactions: Allergies Allergy/AdvReac Type Severity Reaction Status Date / Time No Known Allergies Allergy Unverified 05/05/18 13:49 Medications: Current Medications Acetaminophen (Tylenol) 650 mg PO Q4H PRN PRN Reason: Headache/Fever/Mild Pain (1-3) Last Admin: 05/10/18 05:06 Dose: 650 mg Albuterol Sulfate (Proventil Hfa) 2 puff INH Q4H PRN PRN Reason: Wheezing Albuterol/Ipratropium (Duoneb) 3 ml NEB [id number] [facility] Last Admin: 05/10/18 07:29 Dose: 3 ml Dextrose/Water (Dextrose 50%) 25 gm SLOW IVP PRN PRN PRN Reason: Hypoglycemia Doxycycline Hyclate (Vibramycin) 100 mg PO BID [facility] Last Admin: 05/10/18 08:11 Dose: 100 mg Glucagon (Glucagon) 1 mg IM PRN PRN PRN Reason: Hypoglycemia Guaifenesin/Dextromethorphan (Diabetic Tussin Dm) 15 ml PO Q4H PRN PRN Reason: Cough Last Admin: 05/10/18 09:41 Dose: 15 ml Dextrose/Water (D5w) 1,000 mls @ 0 mls/hr IV .Q0M PRN PRN Reason: Hypoglycemia Dexamethasone 40 mg/ Sodium (Chloride) 60 mls @ 100 mls/hr IVPB DAILY [facility] Stop: 05/10/18 23:59 Last Admin: 05/10/18 08:11 Dose: 60 mls Insulin Glargine 70 units/ (Miscellaneous Medication) 0.7 mls @ 0 mls/hr SC BID [facility] Last Admin: 05/10/18 08:12 Dose: 0.7 mls Insulin Human Lispro (Humalog) 0 units SC .AGGRESSIVE SLIDING PRN; Protocol PRN Reason: AGGRESSIVE SLIDING SCALE Last Admin: 05/09/18 21:05 Dose: 13 unit Insulin Human Lispro (Humalog) 30 units SC AC [facility] Last Admin: 05/10/18 09:40 Dose: 30 unit Lorazepam (Ativan) 1 mg PO Q6H PRN PRN Reason: Anxiety Last Admin: 05/10/18 05:09 Dose: 1 mg Melatonin (Melatonin) 3 mg PO HS PRN PRN Reason: Insomnia Last Admin: 05/09/18 21:04 Dose: 3 mg Montelukast Sodium (Singulair) 10 mg PO QPM [facility] Last Admin: 05/09/18 20:25 Dose: 10 mg Nystatin (Mycostatin Powder) 15 gm TOP PRN PRN PRN Reason: Rash/Topical Irritation Last Admin: 05/02/18 03:52 Dose: 1 applic Ondansetron HCl (Zofran Odt) 4 mg PO Q6H PRN PRN Reason: Nausea/Vomiting Last Admin: 05/07/18 02:25 Dose: 4 mg Ondansetron HCl (Zofran) 4 mg IVP Q6H PRN PRN Reason: Nausea/Vomiting Last Admin: 05/10/18 05:56 Dose: 4 mg Pantoprazole Sodium (Protonix) 40 mg IVP DAILY [facility] Last Admin: 05/10/18 08:13 Dose: 40 mg Pregabalin (Lyrica) 25 mg PO BID [facility] Last Admin: 05/10/18 09:56 Dose: 25 mg Senna/Docusate Sodium (Senokot S) 2 tab PO BID PRN PRN Reason: Constipation Last Admin: 05/06/18 09:22 Dose: 2 tab Sodium Chloride (Normal Saline Pf) 10 ml FS PRN PRN PRN Reason: RECONSTITUTION Last Admin: 05/05/18 09:56 Dose: 10 ml Throat Lozenges (Cepastat Lozenges) 1 tere PO Q2H PRN PRN Reason: Sore Throat Last Admin: 05/10/18 05:54 Dose: 1 tere
[2018-05-10 11:21] LABS: Anisocytosis MODERATE=16-30 cells (100X) (0-5/hpf); Band 4 % (5-11); Basophilic Stippling SLIGHT = 1-2 cells (100X) (None Seen); Hypochromia SLIGHT = 6-15 cells (100X) (0-5/hpf); Large Platelets SLIGHT; Lymphocytes 30 % (21-51); MDiff Complete? YES; Mean Platelet Volume 12.5 fL (7.4-10.4); Microcytosis MODERATE=15-30 cells (100X) (0-5/hpf); Monocytes 10 % (0-10); Neutrophil 54 % (42-75); Nucleated RBC 1 % (0); Platelet Count 31 thou/uL (130-400); Platelet Morphology Comment Appears Decreased; Polychromasia MODERATE = 3-4 cells (100X) (0-2/hpf); Reactive Lymphocytes 2 % (0-10); Tear Drops SLIGHT = 2-5 cells (100X) (0-1/hpf)
[2018-05-10] MEDS: Senokot S 8.6-50 MG TAB PO PRN (17:04)
[2018-05-10] MEDS: Melatonin 3 MG TAB PO PRN (20:18)
[2018-05-10] MEDS: Montelukast Sodium 10 mg Tablet PO SCH (20:18)
[2018-05-11] MEDS: Ondansetron ODT 4 MG TAB PO PRN ×2 (00:07→16:59)
[2018-05-11] MEDS: Lorazepam 1 MG TAB PO PRN ×4 (00:07→20:55)
[2018-05-11 07:26] LABS: Chloride 103 mmol/L (98-107); Potassium 4.6 mmol/L (3.5-5.1); Sodium 136 mmol/L (136-145)
[2018-05-11 07:27] LABS: Calcium 9.5 mg/dL (7.8-10.44); Glucose 96 mg/dL (70-105)
[2018-05-11 07:29] LABS: Anion Gap 16 mmol/L (10-20); Carbon Dioxide 22 mmol/L (22-29)
[2018-05-11 07:31] LABS: BUN (Urea Nitrogen) 40 mg/dL (7.0-18.7); Calc. Creatinine Clearance 96 mL/min (70-130); Estimated GFR-MDRD 50
[2018-05-11] MEDS: Insulin Glargine 70 UNITS in Pre-Filled Syringe 1 EACH SC SCH (07:55)
[2018-05-11] MEDS: Pantoprazole 40 MG VIAL IVP SCH (07:56)
[2018-05-11] MEDS: Doxycycline 100 MG CAP PO SCH ×2 (07:56→20:41)
[2018-05-11 07:57] LABS: Reticulocyte Count 8.3 % (0.5-1.5)
[2018-05-11 08:27] LABS: Hemoglobin 8.8 g/dL (12.0-16.0); Mean Corpuscular HGB CONC 31.5 g/dL (32.0-36.0); Mean Corpuscular Hemoglobin 26.7 pg (27.0-31.0); Mean Corpuscular Volume 84.7 fL (78.0-98.0); Mean Platelet Volume 12.7 fL (7.4-10.4); Platelet Count 25 thou/uL (130-400); RBC Distribution Width 17.9 % (11.5-14.5); Red Blood Cell (RBC) Count 3.29 mill/uL (4.20-5.40); White Blood Cell (WBC) Count 5.1 thou/uL (4.8-10.8)
[2018-05-11 09:00] LABS: Band 4 % (5-11); Hypochromia SLIGHT = 6-15 cells (100X) (0-5/hpf); Lymphocytes 14 % (21-51); MDiff Complete? YES; Microcytosis SLIGHT = 6-15 cells (100X) (0-5/hpf); Monocytes 10 % (0-10); Neutrophil 66 % (42-75); Nucleated RBC 3 % (0); Platelet Morphology Comment Appears Decreased; Polychromasia SLIGHT = 2-3 cells (100X) (0-2/hpf); Reactive Lymphocytes 6 % (0-10); Tear Drops SLIGHT = 2-5 cells (100X) (0-1/hpf)
[2018-05-11] MEDS: HumaLOG 300 UNITS/3 ML VIAL SC SCH ×3 (09:05→16:24)
[2018-05-11] MEDS ORDERED: Pregabalin 25 MG CAP PO SCH (09:30)
[2018-05-11] MEDS: Pregabalin 25 MG CAP PO SCH ×2 (09:36→20:43)
--- NOTE | 2018-05-11 09:53 | PDOC.PN ---
- Subjective Encounter Start Date: 05/11/18 Encounter Start Time: 08:35 she has wheezing and cough, her platelet again dropped - Objective Resuscitation Status - Order Detail: 05/01/18 19:15 Resuscitation Status Routine Resuscitation Status: FULL: Full Resuscitation MAR Reviewed: Yes Vital Signs & Weight: Vital Signs (12 hours) Temp Pulse Resp BP Pulse Ox 05/11/18 07:40 98.2 F 79 20 124/78 100 05/11/18 07:32 84 16 99 05/10/18 23:41 95 Weight Admit Weight 203 lb 7 oz Weight 205 lb 1.6 oz Most Recent Monitor Data Heart Rate from ECG 90 NIBP 95/55 NIBP BP-Mean 68 Respiration from ECG 21 SpO2 98 I&O: 05/10/18 05/11/18 05/12/18 05:59 06:59 06:59 Intake Total Balance Result Diagrams: 05/11/18 05:41 05/11/18 05:41 Additional Labs: Accuchecks 05/11/18 05/11/18 05/11/18 08:46 06:19 00:49 POC Glucose 200 H 109 172 H 05/10/18 05/10/18 05/10/18 19:58 17:11 11:20 POC Glucose 300 H 317 H 243 H 05/10/18 09:13 POC Glucose 233 H Phys Exam - Physical Examination Constitutional: NAD HEENT: PERRLA, moist MMs, sclera anicteric Neck: no JVD, supple Respiratory: no rales, wheezing present Cardiovascular: RRR, no significant murmur, no rub Gastrointestinal: soft, non-tender, no distention, positive bowel sounds Musculoskeletal: no edema, pulses present Neurological: non-focal, moves all 4 limbs Lymphatic: no nodes Psychiatric: normal affect Skin: normal turgor Dx/Plan (1) Idiopathic thrombocytopenic purpura (ITP) Code(s): D69.3 - IMMUNE THROMBOCYTOPENIC PURPURA Status: Acute (2) Symptomatic anemia Code(s): D64.9 - ANEMIA, UNSPECIFIED Status: Acute Comment: (3) CKD (chronic kidney disease), stage III Status: Chronic (4) Diabetes type 2, uncontrolled Code(s): E11.65 - TYPE 2 DIABETES MELLITUS WITH HYPERGLYCEMIA Status: Chronic Comment: continue accuchecks, insulin (5) Hypersplenism Code(s): D73.1 - HYPERSPLENISM Status: Chronic (6) Obesity (BMI 30-39.9) Code(s): E66.9 - OBESITY, UNSPECIFIED Status: Chronic (7) Pancytopenia Code(s): D61.818 - OTHER PANCYTOPENIA Status: Chronic (8) Hyperglycemia due to type 2 diabetes mellitus Code(s): E11.65 - TYPE 2 DIABETES MELLITUS WITH HYPERGLYCEMIA Status: Acute Comment: worsened due to steroid (9) Asthma Code(s): J45.909 - UNSPECIFIED ASTHMA, UNCOMPLICATED Status: Chronic Comment : stable, continue bronchodilators - Plan cont current plan of care, continue antibiotics, respiratory therapy * continue duoneb * add dulera * continue decadron as her hematology * may need rituxan vs IVig ?? * will repeat labs tomorrow * continue doxycycline. Review of Systems - Review of Systems ENT: negative: Ear Pain, Ear Discharge, Nose Pain, Nose Discharge, Nose Congestion, Mouth Pain, Mouth Swelling, Throat Pain, Throat Swelling, Other Respiratory: Cough, Wheezing. negative: Dry, Shortness of Breath, Hemoptysis, SOB with Excertion, Pleuritic Pain, Sputum Cardiovascular: negative: chest pain, palpitations, orthopnea, paroxysmal nocturnal dyspnea, edema, light headedness, other Gastrointestinal: negative: Nausea, Vomiting, Abdominal Pain, Diarrhea, Constipation, Melena, Hematochezia, Other Genitourinary: negative: Dysuria, Frequency, Incontinence, Hematuria, Retention , Other Musculoskeletal: negative: Neck Pain, Shoulder Pain, Arm Pain, Back Pain, Hand Pain, Leg Pain, Foot Pain, Other Skin: negative: Rash, Lesions, Jose Manuel, Bruising, Other - Medications/Allergies Allergies/Adverse Reactions: Allergies Allergy/AdvReac Type Severity Reaction Status Date / Time No Known Allergies Allergy Unverified 05/05/18 13:49 Medications: Current Medications Acetaminophen (Tylenol) 650 mg PO Q4H PRN PRN Reason: Headache/Fever/Mild Pain (1-3) Last Admin: 05/10/18 05:06 Dose: 650 mg Albuterol Sulfate (Proventil Hfa) 2 puff INH Q4H PRN PRN Reason: Wheezing Albuterol/Ipratropium (Duoneb) 3 ml NEB [id number] [facility] Last Admin: 05/11/18 07:32 Dose: 3 ml Albuterol/Ipratropium (Duoneb) 3 ml NEB Q2H PRN PRN Reason: SOB &/or Wheezing Dextrose/Water (Dextrose 50%) 25 gm SLOW IVP PRN PRN PRN Reason: Hypoglycemia Doxycycline Hyclate (Vibramycin) 100 mg PO BID [facility] Last Admin: 05/11/18 07:56 Dose: 100 mg Glucagon (Glucagon) 1 mg IM PRN PRN PRN Reason: Hypoglycemia Guaifenesin/Dextromethorphan (Diabetic Tussin Dm) 15 ml PO Q4H PRN PRN Reason: Cough Last Admin: 05/10/18 09:41 Dose: 15 ml Dextrose/Water (D5w) 1,000 mls @ 0 mls/hr IV .Q0M PRN PRN Reason: Hypoglycemia Insulin Glargine 70 units/ (Miscellaneous Medication) 0.7 mls @ 0 mls/hr SC BID [facility] Last Admin: 05/11/18 07:55 Dose: 0.7 mls Insulin Human Lispro (Humalog) 0 units SC .AGGRESSIVE SLIDING PRN; Protocol PRN Reason: AGGRESSIVE SLIDING SCALE Last Admin: 05/09/18 21:05 Dose: 13 unit Insulin Human Lispro (Humalog) 30 units SC [facility] Last Admin: 05/11/18 09:05 Dose: 30 unit Lorazepam (Ativan) 1 mg PO Q6H PRN PRN Reason: Anxiety Last Admin: 05/11/18 07:56 Dose: 1 mg Melatonin (Melatonin) 3 mg PO HS PRN PRN Reason: Insomnia Last Admin: 05/10/18 20:18 Dose: 3 mg Mometasone Furoate/Formoterol Fumar (Dulera 200 Mcg/5 Mcg Inhaler) 2 puff INH BID-RT [facility] Montelukast Sodium (Singulair) 10 mg PO QPM [facility] Last Admin: 05/10/18 20:18 Dose: 10 mg Nystatin (Mycostatin Powder) 15 gm TOP PRN PRN PRN Reason: Rash/Topical Irritation Last Admin: 05/02/18 03:52 Dose: 1 applic Ondansetron HCl (Zofran Odt) 4 mg PO Q6H PRN PRN Reason: Nausea/Vomiting Last Admin: 05/11/18 00:07 Dose: 4 mg Ondansetron HCl (Zofran) 4 mg IVP Q6H PRN PRN Reason: Nausea/Vomiting Last Admin: 05/10/18 05:56 Dose: 4 mg Pantoprazole Sodium (Protonix) 40 mg IVP DAILY [facility] Last Admin: 05/11/18 07:56 Dose: 40 mg Pregabalin (Lyrica) 0 mg PO BID [facility] Pregabalin (Lyrica) 0 mg PO NOW [facility] Stop: 05/11/18 11:00 Last Admin: 05/11/18 09:25 Dose: 25 mg Senna/Docusate Sodium (Senokot S) 2 tab PO BID PRN PRN Reason: Constipation Last Admin: 05/10/18 17:04 Dose: 2 tab Sodium Chloride (Normal Saline Pf) 10 ml FS PRN PRN PRN Reason: RECONSTITUTION Last Admin: 05/05/18 09:56 Dose: 10 ml Throat Lozenges (Cepastat Lozenges) 1 tere PO Q2H PRN PRN Reason: Sore Throat Last Admin: 05/10/18 05:54 Dose: 1 tere
[2018-05-11] MEDS: HumaLOG 300 UNITS/3 ML VIAL SC PRN ×2 (16:27→20:47)
[2018-05-11] MEDS: Senokot S 8.6-50 MG TAB PO PRN (16:46)
[2018-05-11] MEDS ORDERED: Fleet Enema 133 ML BOT PR SCH (18:00)
[2018-05-11] MEDS: Mometasone/Formoterol 120 PUFF INHALER INH SCH (19:20)
[2018-05-11] MEDS: Montelukast Sodium 10 mg Tablet PO SCH (20:41)
[2018-05-11] MEDS ORDERED: Insulin Glargine 20 UNITS in Pre-Filled Syringe 1 EACH SC SCH (21:00)
[2018-05-12] MEDS: Lorazepam 1 MG TAB PO PRN (03:44)
[2018-05-12] MEDS: Mometasone/Formoterol 120 PUFF INHALER INH SCH (08:13)
[2018-05-12] MEDS ORDERED: Insulin Glargine 30 UNITS in Pre-Filled Syringe 1 EACH SC SCH ×2 (09:00→21:00)
[2018-05-12] MEDS ORDERED: Insulin Glargine 20 UNITS in Pre-Filled Syringe 1 EACH SC SCH (09:00)
[2018-05-12 09:25] LABS: Hemoglobin 8.5 g/dL (12.0-16.0); Mean Corpuscular HGB CONC 30.7 g/dL (32.0-36.0); Mean Corpuscular Hemoglobin 26.6 pg (27.0-31.0); Mean Corpuscular Volume 86.5 fL (78.0-98.0); Mean Platelet Volume 13.2 fL (7.4-10.4); Platelet Count 23 thou/uL (130-400); RBC Distribution Width 18.4 % (11.5-14.5); Red Blood Cell (RBC) Count 3.19 mill/uL (4.20-5.40)
[2018-05-12 09:34] LABS: Anion Gap 15 mmol/L (10-20); BUN (Urea Nitrogen) 41 mg/dL (7.0-18.7); Calc. Creatinine Clearance 84 mL/min (70-130); Calcium 8.9 mg/dL (7.8-10.44); Carbon Dioxide 22 mmol/L (22-29); Chloride 105 mmol/L (98-107); Estimated GFR-MDRD 43; Glucose 155 mg/dL (70-105); Potassium 4.7 mmol/L (3.5-5.1); Sodium 137 mmol/L (136-145)
[2018-05-12] MEDS: Doxycycline 100 MG CAP PO SCH (09:55)
[2018-05-12] MEDS: HumaLOG 300 UNITS/3 ML VIAL SC SCH ×3 (09:56→17:00)
[2018-05-12] MEDS: Pantoprazole 40 MG VIAL IVP SCH (09:57)
[2018-05-12] MEDS: HumaLOG 300 UNITS/3 ML VIAL SC PRN (09:57)
[2018-05-12] MEDS: Sodium Chloride 0.9% (PF) 10 ML VIAL FS PRN (09:57)
[2018-05-12 10:04] LABS: Anisocytosis SLIGHT = 6-15 cells (100X) (0-5/hpf); Hypochromia SLIGHT = 6-15 cells (100X) (0-5/hpf); Lymphocytes 39 % (21-51); MDiff Complete? YES; Monocytes 3 % (0-10); Neutrophil 57 % (42-75); Platelet Morphology Comment Appears Decreased; Reactive Lymphocytes 1 % (0-10); Tear Drops SLIGHT = 2-5 cells (100X) (0-1/hpf)
[2018-05-12] MEDS: Senokot S 8.6-50 MG TAB PO PRN (10:29)
--- NOTE | 2018-05-12 11:20 | PDOC.PN ---
- Subjective Encounter Start Date: 05/12/18 Encounter Start Time: 09:10 Patient seen and examined. No new complaints. No overnight events - Objective Resuscitation Status - Order Detail: 05/01/18 19:15 Resuscitation Status Routine Resuscitation Status: FULL: Full Resuscitation MAR Reviewed: Yes Vital Signs & Weight: Vital Signs (12 hours) Temp Pulse Resp BP Pulse Ox 05/12/18 08:13 110 H 20 98 05/12/18 08:10 97.9 F 108 H 18 100/65 98 05/12/18 02:04 114 H Weight Admit Weight 203 lb 7 oz Weight 205 lb 1.6 oz Most Recent Monitor Data Heart Rate from ECG 90 NIBP 95/55 NIBP BP-Mean 68 Respiration from ECG 21 SpO2 98 I&O: 05/11/18 05/12/18 05/13/18 06:59 06:59 06:59 Intake Total 3440 Output Total 100 Balance 3340 Result Diagrams: 05/12/18 07:47 05/12/18 07:47 Additional Labs: Accuchecks 05/12/18 05/11/18 05/11/18 04:52 20:40 16:18 POC Glucose 320 H 315 H 154 H 05/11/18 05/11/18 13:04 12:01 POC Glucose 109 106 Phys Exam - Physical Examination Constitutional: NAD HEENT: PERRLA, moist MMs, sclera anicteric Neck: no JVD, supple Respiratory: no wheezing, no rales, no rhonchi Cardiovascular: RRR, no significant murmur, no rub Gastrointestinal: soft, non-tender, no distention, positive bowel sounds obesity+ Musculoskeletal: no edema, pulses present Neurological: non-focal, normal sensation Lymphatic: no nodes Psychiatric: normal affect Skin: no rash, normal turgor Dx/Plan (1) Idiopathic thrombocytopenic purpura (ITP) Code(s): D69.3 - IMMUNE THROMBOCYTOPENIC PURPURA Status: Acute (2) Symptomatic anemia Code(s): D64.9 - ANEMIA, UNSPECIFIED Status: Acute Comment: (3) CKD (chronic kidney disease), stage III Status: Chronic (4) Diabetes type 2, uncontrolled Code(s): E11.65 - TYPE 2 DIABETES MELLITUS WITH HYPERGLYCEMIA Status: Chronic Comment: continue accuchecks, insulin (5) Hypersplenism Code(s): D73.1 - HYPERSPLENISM Status: Chronic (6) Obesity (BMI 30-39.9) Code(s): E66.9 - OBESITY, UNSPECIFIED Status: Chronic (7) Pancytopenia Code(s): D61.818 - OTHER PANCYTOPENIA Status: Chronic (8) Hyperglycemia due to type 2 diabetes mellitus Code(s): E11.65 - TYPE 2 DIABETES MELLITUS WITH HYPERGLYCEMIA Status: Acute Comment: worsened due to steroid (9) Asthma Code(s): J45.909 - UNSPECIFIED ASTHMA, UNCOMPLICATED Status: Chronic Comment : stable, continue bronchodilators - Plan cont current plan of care, plan discussed w/ family, continue antibiotics * platelet count has not much improved and dropping * will ask hematology to decide any new step or ok to discharge * she is high risk for readmission * medication reviewed as below * symptomatic treatment. Review of Systems - Review of Systems Constitutional: malaise. negative: fever, chills, sweats, weakness, other ENT: Throat Pain. negative: Ear Pain, Ear Discharge, Nose Pain, Nose Discharge , Nose Congestion, Mouth Pain, Mouth Swelling, Throat Swelling, Other Respiratory: Cough. negative: Dry, Shortness of Breath, Hemoptysis, SOB with Excertion, Pleuritic Pain, Sputum, Wheezing Cardiovascular: negative: chest pain, palpitations, orthopnea, paroxysmal nocturnal dyspnea, edema, light headedness, other Gastrointestinal: Abdominal Pain, Constipation Genitourinary: negative: Dysuria, Frequency, Incontinence, Hematuria, Retention , Other Musculoskeletal: negative: Neck Pain, Shoulder Pain, Arm Pain, Back Pain, Hand Pain, Leg Pain, Foot Pain, Other - Medications/Allergies Allergies/Adverse Reactions: Allergies Allergy/AdvReac Type Severity Reaction Status Date / Time No Known Allergies Allergy Unverified 05/05/18 13:49 Medications: Current Medications Acetaminophen (Tylenol) 650 mg PO Q4H PRN PRN Reason: Headache/Fever/Mild Pain (1-3) Last Admin: 05/10/18 05:06 Dose: 650 mg Albuterol Sulfate (Proventil Hfa) 2 puff INH Q4H PRN PRN Reason: Wheezing Albuterol/Ipratropium (Duoneb) 3 ml NEB [id number] KHAI Last Admin: 05/12/18 08:13 Dose: 3 ml Albuterol/Ipratropium (Duoneb) 3 ml NEB Q2H PRN PRN Reason: SOB &/or Wheezing Dextrose/Water (Dextrose 50%) 25 gm SLOW IVP PRN PRN PRN Reason: Hypoglycemia Doxycycline Hyclate (Vibramycin) 100 mg PO BID [facility] Last Admin: 05/12/18 09:55 Dose: 100 mg Glucagon (Glucagon) 1 mg IM PRN PRN PRN Reason: Hypoglycemia Guaifenesin/Dextromethorphan (Diabetic Tussin Dm) 15 ml PO Q4H PRN PRN Reason: Cough Last Admin: 05/10/18 09:41 Dose: 15 ml Dextrose/Water (D5w) 1,000 mls @ 0 mls/hr IV .Q0M PRN PRN Reason: Hypoglycemia Insulin Glargine 30 units/ (Miscellaneous Medication) 0.3 mls @ 0 mls/hr SC HS KHAI Insulin Glargine 30 units/ (Miscellaneous Medication) 0.3 mls @ 0 mls/hr SC QAM [facility] Last Admin: 05/12/18 09:56 Dose: 0.3 mls Insulin Human Lispro (Humalog) 0 units SC .AGGRESSIVE SLIDING PRN; Protocol PRN Reason: AGGRESSIVE SLIDING SCALE Last Admin: 05/12/18 09:57 Dose: 11 unit Insulin Human Lispro (Humalog) 10 units SC AC [facility] Last Admin: 05/12/18 09:56 Dose: 10 unit Lorazepam (Ativan) 1 mg PO Q6H PRN PRN Reason: Anxiety Last Admin: 05/12/18 03:44 Dose: 1 mg Melatonin (Melatonin) 3 mg PO HS PRN PRN Reason: Insomnia Last Admin: 05/10/18 20:18 Dose: 3 mg Mometasone Furoate/Formoterol Fumar (Dulera 200 Mcg/5 Mcg Inhaler) 2 puff INH BID-RT [facility] Last Admin: 05/12/18 08:13 Dose: 2 puff Montelukast Sodium (Singulair) 10 mg PO QPM [facility] Last Admin: 05/11/18 20:41 Dose: 10 mg Nystatin (Mycostatin Powder) 15 gm TOP PRN PRN PRN Reason: Rash/Topical Irritation Last Admin: 05/02/18 03:52 Dose: 1 applic Ondansetron HCl (Zofran Odt) 4 mg PO Q6H PRN PRN Reason: Nausea/Vomiting Last Admin: 05/11/18 16:59 Dose: 4 mg Ondansetron HCl (Zofran) 4 mg IVP Q6H PRN PRN Reason: Nausea/Vomiting Last Admin: 05/10/18 05:56 Dose: 4 mg Pantoprazole Sodium (Protonix) 40 mg IVP DAILY KHAI Last Admin: 05/12/18 09:57 Dose: 40 mg Pregabalin (Lyrica) 0 mg PO BID KHAI Last Admin: 05/11/18 20:43 Dose: 25 mg Senna/Docusate Sodium (Senokot S) 2 tab PO BID PRN PRN Reason: Constipation Last Admin: 05/12/18 10:29 Dose: 2 tab Sodium Chloride (Normal Saline Pf) 10 ml FS PRN PRN PRN Reason: RECONSTITUTION Last Admin: 05/12/18 09:57 Dose: 10 ml Throat Lozenges (Cepastat Lozenges) 1 tere PO Q2H PRN PRN Reason: Sore Throat Last Admin: 05/10/18 05:54 Dose: 1 tere
[2018-05-12] MEDS: Pregabalin 25 MG CAP PO SCH (12:06)
[2018-05-12 13:24] VITALS: TEMP 98.9
[2018-05-12] MEDS ORDERED: Fleet Enema 133 ML BOT FS SCH ×2 (13:30→21:00)
--- NOTE | 2018-05-12 15:55 | DIS ---
DATE OF ADMISSION: 05/01/2018 DATE OF DISCHARGE: 05/12/2018 PRIMARY CARE PHYSICIAN: Rosa Vazquez, DISCHARGE DISPOSITION: Home. PRIMARY DISCHARGE DIAGNOSES: Idiopathic thrombocytopenic purpura with severe thrombocytopenia, symptomatic anemia, asthma exacerbation, hyperglycemia due to diabetes and steroid. SECONDARY DISCHARGE DIAGNOSES: Idiopathic thrombocytopenic purpura, pancytopenia, obesity, hypersplenism, diabetes type 2, chronic kidney disease stage 3, asthma, morbid obesity. PRIMARY PROCEDURE/OPERATION: None. RADIOLOGICAL INVESTIGATION: CT brain. SIGNIFICANT LABORATORY DATA: WBC 4.0, hemoglobin 8.5, platelet 23. Sodium 137, potassium 4.7, BUN 41, creatinine 1.45, calcium 8.9. DISCHARGE MEDICATIONS: The patient will continue all her previous medications. We are not making any change in her medication; 1. Fioricet one tablet q.4 hourly p.r.n. 2. Flonase nasal spray daily. 3. Lantus 45 units subcu at bedtime and 50 units in the morning. 4. Lyrica 25 mg p.o. t.i.d. 5. Ranitidine 300 mg p.o. daily. 6. Ventolin inhaler two puffs q.4 hourly p.r.n. 7. Tylenol No.3 one or two tablets q.6 hourly p.r.n. 8. Doxycycline 100 mg p.o. b.i.d. 9. Dulera two puffs inhalation b.i.d. 10. Singulair 10 mg daily. 11. Florastor 250 mg p.o. daily. CONTRAINDICATION: None. CODE STATUS: Full code. INPATIENT DRIFT MINER: Hematology was following while in hospital. Pulmonary group was following while in hospital. TEST RESULT PENDING ON DISCHARGE: None. ALLERGIES: NO KNOWN DRUG ALLERGIES. DISCHARGE PLAN: Posthospital, the patient will follow up with Dr. Cotto on May 29, 2018, at 8:45 a.m. HOSPITAL COURSE: A 28-year-old female who was admitted by Dr. Alonso Peñaloza. Please see his H and P for further details. The patient was admitted directly from [facility] for severe thrombocytopenia and symptomatic anemia. During this admission, the patient was given 1 unit of PRBC and 2 units of platelet transfusion. She has ITP and that was treated with steroid while in hospital. Because of steroid, the patient's blood sugar was out of control, required tight control. Her platelet count was not significantly improving even after steroid. The patient will follow up with Oncology. Oncology cleared her for discharge. At this point, the patient is medically stable. While in hospital, we noted that she had mild asthma flare up and that is why we prescribed Dulera. We prescribed antibiotics upon discharge. Overall, the patient is medically stable for discharge. The patient is seen and examined at bedside today. Please see my progress note from today. Job ID: [id number]
[2018-05-12 18:25] VITALS: BP 109/75
== END 2018-05-12 17:47 | disposition home or self-care (01) | DRG 813 ==
LOC: ERS 15:31 → 2NO 18:00 → IMCU/EMU 05-03 04:18 → T4-A 05-05 18:23
PROVIDERS: ADMIT Emergency Medicine; ATTEND Emergency Medicine
PROC: 30233R1 Transfusion of Nonautologous Platelets into Peripheral Vein, Percutaneous Approach (ICD-10-PCS; principal; 2018-05-01)
PROC: 30233N1 Transfusion of Nonautologous Red Blood Cells into Peripheral Vein, Percutaneous Approach (ICD-10-PCS; 2018-05-02)
DX: D69.3 Immune thrombocytopenic purpura (principal); J45.901 Unspecified asthma with (acute) exacerbation; D61.818 Other pancytopenia; D63.8 Anemia in other chronic diseases classified elsewhere; R16.1 Splenomegaly, not elsewhere classified; F71 Moderate intellectual disabilities; E66.01 Morbid (severe) obesity due to excess calories; N18.3 Chronic kidney disease, stage 3 (moderate); E11.65 Type 2 diabetes mellitus with hyperglycemia; E11.22 Type 2 diabetes mellitus with diabetic chronic kidney disease; T38.0X5A Adverse effect of glucocorticoids and synthetic analogues, initial encounter; Z68.37 Body mass index [BMI] 37.0-37.9, adult; Z88.1 Allergy status to other antibiotic agents; Z88.2 Allergy status to sulfonamides; Z88.8 Allergy status to other drugs, medicaments and biological substances; Z79.4 Long term (current) use of insulin; Z79.899 Other long term (current) drug therapy
CPT/HCPCS: 36415; 36416; 36430; 70450; 80048; 80053; 81001; 82607; 82728; 82947; 83010; 83540; 83550; 83615; 83735; 83880; 84100; 84703; 85025; 85027; 85046; 85060; 85610; 85730; 86850; 86870; 86880; 86900; 86901; 86922; 87086; 87804; 94640; 94664; 94760; C9113; J1100; J1756; J1815; J1825; J2405; J3475; J7050; J7620; P9016; P9035; Q0162

== ENCOUNTER 2018-05-27 14:47 | Emergency (ER) | payer OTHER ==
[2018-05-27 16:26] LABS: #Eosinphils 0.1 thou/uL (0.0-0.7); #Monocytes 0.3 thou/uL (0.11-0.59); #Neutrophils 0.7 thou/uL (1.40-6.50); %Basophils 0.6 % (0.0-1.0); %Eosinophils 3.6 % (0.0-10.0); %Lymphocytes 47.1 % (21.0-51.0); %Monocytes 14.6 % (0.0-10.0); %Neutrophils 34.2 % (42.0-75.0); Hemoglobin 9.6 g/dL (12.0-16.0); Mean Corpuscular HGB CONC 33.9 g/dL (32.0-36.0); Mean Corpuscular Hemoglobin 27.3 pg (27.0-31.0); Mean Corpuscular Volume 80.4 fL (78.0-98.0); Mean Platelet Volume 10.7 fL (7.4-10.4); Platelet Count 73 thou/uL (130-400); RBC Distribution Width 16.6 % (11.5-14.5); Red Blood Cell (RBC) Count 3.51 mill/uL (4.20-5.40); White Blood Cell (WBC) Count 2.2 thou/uL (4.8-10.8)
[2018-05-27 16:38] LABS: ALT (SGPT) 22 U/L (8-55); AST (SGOT) 24 U/L (5-34); Albumin 3.9 g/dL (3.5-5.0); Alkaline Phosphatase 78 U/L (40-150); Anion Gap 13 mmol/L (10-20); BUN (Urea Nitrogen) 31 mg/dL (7.0-18.7); Bilirubin, Total 1.5 mg/dL (0.2-1.2); Calc. Creatinine Clearance 0 mL/min (70-130); Calcium 9.7 mg/dL (7.8-10.44); Carbon Dioxide 23 mmol/L (22-29); Chloride 101 mmol/L (98-107); Estimated GFR-MDRD 33; Globulin 2.3 g/dL (2.4-3.5); Potassium 4.8 mmol/L (3.5-5.1); Protein, Total 6.2 g/dL (6.0-8.3); Sodium 132 mmol/L (136-145)
[2018-05-27 16:39] LABS: Glucose 589 mg/dL (70-105)
--- NOTE | 2018-05-27 18:05 | CT ---
CT HEAD NONCONTRAST: 05/27/18 HISTORY: Headache. COMPARISON: 05/01/18. FINDINGS: There is no evidence of acute intracranial hemorrhage or infarct. Ventricles appear normal in size, s hape and position. There is no mass effect or shift of midline structures. Minimal mucosal thickening remains within the right ethmoid air cells. Significant improvement since the previous exam. IMPRESSION: No acute intracranial abnormalities are demonstrated. POS: [facility]
[2018-05-27] MEDS ORDERED: diphenhydrAMINE 50 MG/ML VIAL ONE (18:14)
[2018-05-27] MEDS ORDERED: Acetaminophen 500 MG TAB ONE (18:14)
[2018-05-27] MEDS ORDERED: Metoclopramide HCl 10 MG/2 ML VIAL ONE (18:14)
[2018-05-27 18:43] LABS: BHCG - Serum Negative (NEGATIVE); Pregs Control Background? CLEAR/WHITE (CLR/WHITE); Pregs Control Bar Appear? YES (CONTROL BAR)
== END 2018-05-27 20:03 | disposition home or self-care (01) ==
LOC: ERS 14:47
DX: E11.65 Type 2 diabetes mellitus with hyperglycemia (principal); R51 Headache; D64.9 Anemia, unspecified; Z79.4 Long term (current) use of insulin; Z79.899 Other long term (current) drug therapy
CPT/HCPCS: 36415; 36416; 70450; 80053; 83735; 84703; 85025; 96361; 96374; 96375; J1200; J2765

== ENCOUNTER 2019-01-26 02:51 | Inpatient (IN) | payer OTHER ==
[2019-01-26 05:14] LABS: Hemoglobin 7.7 g/dL (12.0-16.0); Mean Corpuscular Hemoglobin 27.1 pg (27.0-31.0); Mean Corpuscular Volume 87.4 fL (78.0-98.0); RBC Distribution Width 13.7 % (11.5-14.5); Red Blood Cell (RBC) Count 2.84 mill/uL (4.20-5.40); White Blood Cell (WBC) Count 8.1 thou/uL (4.8-10.8)
[2019-01-26 05:17] LABS: INR-International Normal Ratio 1.3; PTT 25.5 SEC (22.9-36.1); Prothrombin Time 15.9 SEC (12.0-14.7)
[2019-01-26 05:25] LABS: D-Dimer Test 5.42 *mcg/mL (0.27-0.43)
[2019-01-26 05:27] LABS: ALT (SGPT) Less than 7 U/L (8-55); AST (SGOT) 10 U/L (5-34); Albumin 2.7 g/dL (3.5-5.0); Alkaline Phosphatase 76 U/L (40-110); Anion Gap 22 mmol/L (10-20); BUN (Urea Nitrogen) 46 mg/dL (7.0-18.7); Bilirubin, Total 1.5 mg/dL (0.2-1.2); Calc. Creatinine Clearance 0 mL/min (70-130); Calcium 8.6 mg/dL (7.8-10.44); Carbon Dioxide 13 mmol/L (22-29); Chloride 98 mmol/L (98-107); Estimated GFR-MDRD 21; Globulin 2.9 g/dL (2.4-3.5); Potassium 5.2 mmol/L (3.5-5.1); Protein, Total 5.6 g/dL (6.0-8.3); Sodium 128 mmol/L (136-145)
[2019-01-26 05:30] LABS: Glucose 715 mg/dL (70-105)
[2019-01-26 05:33] LABS: Band 17 % (5-11); Lymphocytes 9 % (21-51); MDiff Complete? YES; Monocytes 4 % (0-10); Neutrophil 70 % (42-75); Platelet Count 59 thou/uL (130-400); Platelet Morphology Comment Appears Decreased
[2019-01-26 05:39] LABS: Fibrinogen 1014 mg/dL (253-463)
[2019-01-26 05:42] LABS: Platelet Count 59 thou/uL (130-400)
[2019-01-26 05:45] LABS: FSP-Qualitative ABNORMAL (Normal)
[2019-01-26 05:46] LABS: FSP-Semiquantitative >=5 & <20 mcg/mL (Less than 5)
[2019-01-26] MEDS ORDERED: Insulin Regular 300 UNITS/3 ML VIAL ONE (05:52)
[2019-01-26] MEDS ORDERED: Vancomycin HCl 1.25 GM in Sodium Chloride 0.9% 250 ML 250 ML IVPB SCH (06:00)
[2019-01-26] MEDS ORDERED: Acyclovir Sodium 350 MG in Sodium Chloride 0.9% 100 ML IVPB SCH (06:00)
[2019-01-26] MEDS ORDERED: Lorazepam 2 MG/ML VIAL ONE (06:42)
[2019-01-26 09:13] LABS: Albumin 2.7 g/dL (3.5-5.0); Anion Gap 22 mmol/L (10-20); BUN (Urea Nitrogen) 46 mg/dL (7.0-18.7); BUN/Creatinine Ratio 17.29; Calc. Creatinine Clearance 0 mL/min (70-130); Calcium 8.6 mg/dL (7.8-10.44); Carbon Dioxide 13 mmol/L (22-29); Chloride 98 mmol/L (98-107); Estimated GFR-MDRD 21; Magnesium 1.9 mg/dL (1.6-2.6); Phosphorus 5.1 mg/dL (2.3-4.7); Potassium 5.2 mmol/L (3.5-5.1); Sodium 128 mmol/L (136-145)
[2019-01-26 09:17] LABS: Glucose 703 mg/dL (70-105)
[2019-01-26] MEDS ORDERED: Sodium Chloride 0.45% 1,000 ML IV SCH (09:30)
[2019-01-26] MEDS ORDERED: Acetaminophen 650 MG Suppository PR PRN (09:40)
[2019-01-26] MEDS ORDERED: Ondansetron ODT 4 MG TAB PO PRN (09:40)
[2019-01-26] MEDS ORDERED: Sodium Chloride 0.9% 1,000 ML IV SCH (09:45)
[2019-01-26 10:06] VITALS: BMI 35.5
[2019-01-26 10:43] LABS: BHCG - Serum Negative (NEGATIVE); Pregs Control Background? CLEAR/WHITE (CLR/WHITE); Pregs Control Bar Appear? YES (CONTROL BAR)
[2019-01-26 11:02] LABS: Actual Bicarbonate (HCO3a) 17.1 mEq/L (22-28); Base Excess (BEa) -9.5 mEq/L (-2.0 to +3.0); CO2 Tension 40.1 mmHg (35.0-45.0); Calcium, Ionized 1.12 mmol/L (1.12-1.30); Carboxyhemoglobin (COHb) 0.5 gm% (0.0-3.0); Hemoglobin (Hb) 7.9 g/dL (12.0-16.0); O2 Tension (PaO2) 76.4 mmHg (80.0-100.0); Potassium - ABG Lab 4.08 mmol/L (3.70-5.30)
[2019-01-26 11:06] LABS: Puncture Site RR; pH, Arterial 7.25 (7.35-7.45)
--- NOTE | 2019-01-26 11:09 | HP ---
PRIMARY CARE PHYSICIAN: Dr. Rosa Vazquez. CHIEF COMPLAINT: Worsening cough and shortness of breath. HISTORY OF PRESENT ILLNESS: A 28-year-old female with known history of diabetes mellitus on insulin and asthma, admitted on transfer from [facility] for evaluation and treatment of sepsis as well as DKA. History is grossly limited as the patient is a poor historian. Most of the history was actually obtained from review of medical record. The patient reportedly was seen in the ER on Saturday and was diagnosed with influenza and was started on Tamiflu and discharged to home. She however developed worsening shortness of breath as well as cough associated with fever and generalized fatigue, and re-presented to the ER where she was found to be febrile, tachycardic with hypoxia with SpO2 of 83% on room air. Further evaluation revealed left upper lobe consolidation suggestive of pneumonia. The patient also was found to have multiple electrolyte derangements including hyperkalemia, thrombocytopenia, and severe hyperglycemia with blood sugar above 700. The patient was treated with IV fluid as well as IV Rocephin and azithromycin, and transferred over here for further evaluation and treatment. In the ER here, the patient received additional IV fluids as well as insulin infusion and also got vancomycin as well as acyclovir for possible hepatic lesions. The patient reported developing some blisters around the mouth and lips on Saturday. Today, she went to the ER and was diagnosed with influenza. She denied dysuria, hematuria, nausea, vomiting, or change in bowel habit. She reports abdominal discomfort as well as tenderness. She also reported neck pain, but denied headache. The patient is slow in mentation and seems to have some memory lapses. PAST MEDICAL HISTORY: 1. Insulin-dependent diabetes mellitus. 2. Pancytopenia. 3. History of splenomegaly. 4. 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 5. Asthma. 6. Left-sided hydronephrosis. 7. Moderate mental retardation. 8. Morbid obesity. 9. CKD. PAST SURGICAL HISTORY: Dental surgery for abscess. FAMILY HISTORY: Positive for diabetes type 2 in multiple family members. 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 There is no history of tobacco, alcohol, or recreational drug use. ALLERGIES: BACTRIM, KEFLEX, LISINOPRIL, AND LOSARTAN. CURRENT HOME MEDICATIONS: 1. Albuterol HFA one to two puffs inhalation as needed. 2. Ranitidine 300 mg once a day. 3. Lantus 60 units subcutaneously b.i.d. 4. Tamiflu. REVIEW OF SYSTEMS: A 12-point review of system performed was negative other than pertinent positives and negatives included in the history of present illness. PHYSICAL EXAMINATION: VITAL SIGNS: Temperature 98.1, pulse 121, pain 5/10, respiratory rate 26, SpO2 of 94% on facemask, blood pressure is 116/70. Of note, the patient was noted to have a temperature of 102 on presentation to [facility] in the ER. GENERAL: Obese female, in moderate respiratory distress. Afebrile. Anicteric. Acyanotic. HEENT: Normocephalic and atraumatic. Tongue is moist, but lips are dry with some scattered scabs concerning for possible blisters that dried out. NECK: Short, thick neck with excess soft tissue. Mild tenderness noted. Neck is otherwise supple with no obvious masses. CARDIOVASCULAR: Regular rhythm and rate, but tachycardic. RESPIRATORY: Fair air entry bilaterally with scattered crackles and some transmitted breath sounds. No obvious rhonchi were appreciated. Work of breathing is increased. The patient is tachypneic. GI: Obese, soft, moderate diffuse tenderness noted. Bowel sound is hypoactive. EXTREMITIES: Grossly normal looking, atraumatic with no obvious edema or erythema. COMMUNICATION PROFESSOR: Conscious and alert. Oriented to person and place. Slow mentation and memory lapse are noted. Cranial nerves 2 through 12 are grossly intact. The patient moves all extremities spontaneously. There is no focal weakness. DIAGNOSTIC DATA: CBC on presentation to [facility] showed WBC count of 10.6, hemoglobin of 8.0, MCV of 88.7, platelets of 62. Repeat CBC here in the hospital showed WBC of 8.1, hemoglobin of 7.7, MCV of 87.4, and platelet of 59. Review of medical records showed the patient has chronic anemia and chronic thrombocytopenia with a nahomy of 3 in the last one year. CMP performed earlier on today showed sodium 128, potassium 5.2, chloride 98, CO2 of 13, anion gap 22, BUN 46, creatinine 2.69, glucose 715, calcium 8.6, total bilirubin 1.5, AST 10, ALT less than 7, alkaline phosphatase 76, total protein 5.6, albumin 2.7, globulin 2.9. Review of medical records showed that on presentation to [facility], creatinine was 2.85, but review of medical records showed that the patient had creatinine ranging from 1.30 to 1.8 on the last 6 months. Lactic acid on presentation was 1.5. Beta hydroxybutyrate was 3.27. No urinalysis was performed. IMAGING STUDIES: Chest x-ray performed at [facility] showed a large opacity in the left upper lobe that was not present on October 10, 2018. This is presumed to be consolidation of pneumonia. The right lung is clear. Coagulation panel/DIC panel showed PT 15.9, INR 1.3, PTT 25.5, fibrinogen 1014, fibrin degradation products high, and D-dimer also was elevated at 5.42. ASSESSMENT: 1. Severe sepsis: Due to pneumonic process. Possible viral infection from influenza and herpes are considered. Abdominal process is possible given abdominal pain and tenderness 2. Acute DKA. Due to infectious etiology. 3. Acute respiratory failure with hypoxia. Due tp pneumonia 4. High anion gap metabolic acidosis. 5. Left lobar pneumonia 6. Pseudohyponatremia with corrected serum sodium of 138. This is due to hyperglycemia. 7. Hyperbilirubinemia. 8. Chronic anemia. 9. Thrombocytopenia. 10. Chronic kidney disease stage 3. 11. Possible DIC. 12. Suspected herpes infection with possible encephalitis. 13. Influenza infection. 14. Hyperkalemia. 15. History of asthma. PLAN: 1. We will start the patient on insulin infusion at 9 units/hour continuously. We will also start normal saline at 250 mL/hours. We will change to D5 normal saline once blood sugar drops below 300. We will not be titrating insulin. We will monitor electrolytes and replete as needed. 2. We will also get blood cultures and urinalysis as well as urine culture. 3. We will also get lipase and CT scan of the abdomen and chest. Broad-spectrum antibiotic therapy with vancomycin, levofloxacin, and Zosyn will be provided as well as antiviral including Tamiflu and acyclovir. 4. We will consult Infectious Disease as well as Pulmonary and Critical Care. 5. DVT prophylaxis with SCDs will be provided. 6. Further treatment to follow depending on hospital course. 7. Code status: Full code. Job ID: [id number] [facility]
[2019-01-26 11:11] LABS: Troponin I Less than 0.010 ng/mL (< 0.028)
[2019-01-26] MEDS ORDERED: methylPREDNISolone Sod Succ 40 MG VIAL IVP SCH (11:15)
[2019-01-26 11:16] LABS: Albumin 2.4 g/dL (3.5-5.0); Anion Gap 14 mmol/L (10-20); Anion Gap 15 mmol/L (10-20); BUN (Urea Nitrogen) 45 mg/dL (7.0-18.7); BUN/Creatinine Ratio 19.57; BUN/Creatinine Ratio 19.65; CK (CPK) 15 U/L (29-168); Calc. Creatinine Clearance 53 mL/min (70-130); Calc. Creatinine Clearance 54 mL/min (70-130); Carbon Dioxide 19 mmol/L (22-29); Chloride 106 mmol/L (98-107); Estimated GFR-MDRD 25; Glucose 367 mg/dL (70-105); Glucose 371 mg/dL (70-105); Lipase 23 U/L (8-78); Magnesium 1.8 mg/dL (1.6-2.6); Potassium 4.2 mmol/L (3.5-5.1); Sodium 135 mmol/L (136-145); Sodium 136 mmol/L (136-145)
--- NOTE | 2019-01-26 11:37 | CON ---
DATE OF CONSULTATION: 01/26/2019 REASON FOR CONSULTATION: Shortness of breath and left upper lobe pneumonia. HISTORY OF PRESENT ILLNESS: This is a 28-year-old female, who came in transfer from [place] earlier today with a left upper lobe pneumonia, diabetic ketoacidosis, and fever up to 102. She states that she has been sick for over a week. She has not eaten anything for the last 5 days. She has a cough and congestion. PAST MEDICAL HISTORY: 1. Type 2 diabetes mellitus, requiring insulin. 2. Anemia. 3. Asthma. 4. Pancytopenia. 5. Severe thrombocytopenia. 6. Splenomegaly. 7. Moderate mental retardation. 8. Left hydronephrosis. 9. Obesity. PAST SURGICAL HISTORY: She has had dental surgery in the past. SOCIAL HISTORY: Lives at home with her mother. Does not smoke. Does not consume alcohol. Does not use illicit drugs. FAMILY MEDICAL HISTORY: Unremarkable. ALLERGIES: BACTRIM, KEFLEX, LISINOPRIL, AND LOSARTAN. REVIEW OF SYSTEMS: Remarkable for herpetic lesion around her lips, high fever, chills, nausea, and vomiting. No hematuria. No hematemesis. No melena. No hematochezia. No dysuria. PHYSICAL EXAMINATION: VITAL SIGNS: Temperature 98.4, pulse 120, blood pressure 93/67, and O2 saturation 98%. She is breathing at a moderately high rate 28. Her O2 sats running 96% on room air. GENERAL: The patient is lying in bed. She is a young female, who is pleasant . HEENT: She has herpetic lesions around her lips in various stages of healing. She has a class 4 Mallampati airway with an enlarged tongue. NECK: No adenopathy or JVD. LUNGS: Coarse breath sounds mainly radiating from the upper airways. She has some crackles in left upper lobe, right side is clear. CARDIAC: S1 and S2. Slightly tachycardic. ABDOMEN: Obese, soft, and nontender. EXTREMITIES: No clubbing, cyanosis, or edema. LABORATORY DATA: Sodium 128, potassium 5.2, chloride 98, CO2 of 13, BUN 46, creatinine 2.6, glucose 715, lactic acid 1.5. AST 10, ALT 7, albumin 2.7. test negative. Beta-hydroxybutyrate 3.27. INR 1.3, PTT 25.5. White blood cell count 8.1, hematocrit 24.8, and platelet count 59, with 70% neutrophils, 17% bands. IMAGING STUDIES: A chest x-ray shows a fairly marked left upper lobe infiltrate, which was not present on previous x-rays. Flu test was negative. ASSESSMENT: 1. Left upper lobe community-acquired pneumonia. 2. Acute hypoxic respiratory failure. 3. Diabetic ketoacidosis. 4. History of asthma. PLAN: 1. The patient needs close observation either in the IMCU or ICU. She does have a high risk for clinical deterioration. I do not think she needs to be intubated at the current time, but that need may change. 2. Broad-spectrum IV antibiotics. 3. IV fluid resuscitation. 4. Insulin drip. 5. Hyponatremia secondary to the hyperglycemia and it should correct. 6. Frequent monitoring of potassium level. The above encompassed 50 minutes of critical care time. Job ID: [id number]
[2019-01-26] MEDS ORDERED: FLU VACC QS2019-20(6MOS UP)/PF 60 MCG/0.5 ML SYRINGE IM ONE (11:45)
[2019-01-26] MEDS ORDERED: Prevnar 13-Val Conj/PF 0.5 ML SYRINGE IM ONE (11:45)
[2019-01-26] MEDS: Acetaminophen 325 MG TAB PO PRN (12:08)
[2019-01-26] MEDS ORDERED: methylPREDNISolone Sod Succ/PF 125 MG/2 ML VIAL IVP SCH (12:30)
[2019-01-26 13:46] LABS: Bacteria/HPF None Seen HPF (None Seen); Bilirubin Negative (Negative); Blood, Urine Trace (Negative); Clarity Clear (Clear); Glucose, Urine (Dipstick) Greater than 1000 mg/dL (Negative); Leukocyte 75 Leu/uL (Negative); Nitrite Negative (Negative); Protein, Urine (Dipstick) 50 mg/dL (Neg-Trace); RBC/HPF 0-3 HPF (0-3); Urobilinogen Normal mg/dL (Less than 2)
--- NOTE | 2019-01-26 13:49 | CT ---
CT OF CHEST AND ABDOMEN AND PELVIS PERFORMED WITHOUT CONTRAST ENHANCEMENT: HISTORY: Sepsis. Evaluation for source. There are some areas of infiltrative lung change in the right upper lobe and superior segment of the right lower lobe. There is an extensive area of dense consolidation of the left lower lobe. This do es not appear to represent effusion. There is fairly prominent mediastinal lymphadenopathy which is probably reactive in a patient of this age. No significant axillary adenopathy. CT OF ABDOMEN PERFORMED WITH CONTRAST ENHANCEMENT: Liver shows no focal abnormalities. Marked splenomegaly is again demonstrated when compared to a pre vious 04/01/2018 study. The spleen measures 19 cm in length. The pancreas and gallbladder regions ap pear unremarkable. The right and left adrenal glands are normal in appearance. The right kidney adriano ws no evidence of any mass. There is cortical thinning involving the left kidney with a mildly atrop hic kidney and changes would suggest more of a UPJ-type obstruction. Prominent periaortic and mesent em lymph nodes are similar to the previous study. No free fluid is noted. CT OF PELVIS PERFORMED WITHOUT CONTRAST ENHANCEMENT: No adenopathy, mass, or free fluid. IMPRESSION: 1. Area of densely consolidated lung within the left lower lobe. Given patient's age, I would favor that this is most likely related to a pneumonic consolidation, less likely a mass. There are also s ome patchy infiltrative changes of the right upper and lower lung marcelino. 2. Marked splenomegaly similar to the previous exam. 3. There is moderate mediastinal, periaortic, and mesenteric adenopathy. These are probably reactiv e-type nodes. The abdominal adenopathy is unchanged as compared to the prior exam. The possibility of a lymphoma is not excluded. 4. Left-sided hydronephrosis probably related to a ureteropelvic junction-type obstruction. This is also unchanged since the prior exam. POS: [facility]
[2019-01-26] MEDS: Piperacillin/Tazobactam 3.375 GM in Sodium Chloride 0.9% 100 ML IVPB SCH ×3 (13:59→23:09)
[2019-01-26] MEDS: Dextrose 5 % And 0.9 % NaCl 1,000 ML IV SCH ×2 (14:00→19:09)
[2019-01-26 17:33] LABS: Albumin 2.6 g/dL (3.5-5.0); Anion Gap 14 mmol/L (10-20); BUN (Urea Nitrogen) 39 mg/dL (7.0-18.7); BUN/Creatinine Ratio 20.21; Calc. Creatinine Clearance 64 mL/min (70-130); Calcium 8.2 mg/dL (7.8-10.44); Carbon Dioxide 17 mmol/L (22-29); Chloride 109 mmol/L (98-107); Estimated GFR-MDRD 31; Glucose 365 mg/dL (70-105); Magnesium 1.8 mg/dL (1.6-2.6); Phosphorus 2.6 mg/dL (2.3-4.7); Potassium 4.1 mmol/L (3.5-5.1); Sodium 136 mmol/L (136-145)
[2019-01-26] MEDS: Dextrose 5%-Lactated Ringers 1,000 ML IV SCH ×2 (18:59→23:09)
[2019-01-26 20:37] LABS: Band 45 % (5-11); Hemoglobin 7.3 g/dL (12.0-16.0); Hypochromia MODERATE=16-30 cells (100X) (0-5/hpf); Lymphocytes 2 % (21-51); MDiff Complete? YES; Mean Corpuscular HGB CONC 31.7 g/dL (32.0-36.0); Mean Corpuscular Hemoglobin 27.6 pg (27.0-31.0); Mean Corpuscular Volume 87.1 fL (78.0-98.0); Mean Platelet Volume 9.3 fL (7.4-10.4); Monocytes 1 % (0-10); Neutrophil 52 % (42-75); Platelet Count 62 thou/uL (130-400); Platelet Morphology Comment Appears Decreased; Polychromasia SLIGHT = 2-3 cells (100X) (0-2/hpf); RBC Distribution Width 13.7 % (11.5-14.5); Red Blood Cell (RBC) Count 2.65 mill/uL (4.20-5.40); Reflex for Review?? NO; White Blood Cell (WBC) Count 4.2 thou/uL (4.8-10.8)
[2019-01-26 20:41] LABS: Albumin 2.5 g/dL (3.5-5.0); Anion Gap 16 mmol/L (10-20); BUN (Urea Nitrogen) 37 mg/dL (7.0-18.7); BUN/Creatinine Ratio 19.79; Calc. Creatinine Clearance 66 mL/min (70-130); Calcium 8.1 mg/dL (7.8-10.44); Carbon Dioxide 15 mmol/L (22-29); Chloride 110 mmol/L (98-107); Estimated GFR-MDRD 32; Glucose 412 mg/dL (70-105); Magnesium 1.8 mg/dL (1.6-2.6); Phosphorus 2.6 mg/dL (2.3-4.7); Potassium 4.1 mmol/L (3.5-5.1); Sodium 137 mmol/L (136-145)
[2019-01-26] MEDS ORDERED: Oseltamivir 75 MG CAP PO SCH (21:00)
--- NOTE | 2019-01-26 22:27 | CON ---
DATE OF CONSULTATION: REASON FOR CONSULTATION: Pneumonia, herpes simplex stomatitis. HISTORY OF PRESENT ILLNESS: A 28-year-old, whom I had seen in the past for an episode of urosepsis in 2014 and since then, she has been admitted few times. In 2016, she came in because of facial cellulitis and infected dental caries and mandibular abscess. In 2016, she came in with dysphonia and laryngitis. Finally in May of this year, she was admitted with thrombocytopenia, admitted directly from the [facility] for severe thrombocytopenia. She was treated with corticosteroids for the presumptive diagnosis of ITP. Now, she comes in with history of influenza diagnosed about a week before admission and treated and then subsequent development of fever, worsening dyspnea, and myalgias, which are diffuse. On arrival, her BP was 99/61, pulse 126, respirations 21, temperature 98.2, and O2 saturation 83% on room air. She was tachycardic, appeared toxic. There was evidence of herpetic stomatitis already. Dental caries. There is egophony and crackles in the left upper lobe. Abdomen was tender diffusely, but she had tenderness all over her body, skin, muscles, and joints. Initial labs with a white cell count of 8.1, hemoglobin 7.7, MCV 87, platelets 59,000 with 17% bands. INR was 1.3. PH 7.25, pCO2 of 40, and PO2 of 76. Sodium 128 and creatinine. Her baseline creatinine nahomy is 1.19 in May of this year. The lowest she has had was in 2013. She has CKD, stage 3 to 4. Urinalysis with 50 protein and 7 to 10 wbc's. The patient has been given Zosyn, vancomycin, levofloxacin, and acyclovir. Currently, she is still not appearing very well, still with diffuse myalgias, some headaches. No visual symptoms. Some sore throat. No abdominal pain. No diarrhea. She is actually constipated. She is voiding in the bedside commode. PAST MEDICAL HISTORY: Includes type 1 diabetes mellitus; episode of pyelonephritis; ITP, recently diagnosed. It is stated as type 2 diabetes, but I think she is type 1. History of oropharyngeal infection with submandibular abscess, treated with dental extraction and antimicrobial therapy. SOCIAL HISTORY: Never smoker. No alcoholic beverage use. Lives with mom. ALLERGIES: NONE. MEDICATIONS: In addition to the antimicrobials, she is on Tamiflu and Tylenol. She is on 750 of Levaquin every other day and Zosyn 3.375 q.6 hours and she is on vancomycin 1.25 once daily. Her last trough is not here yet in the record, it is probably pending. FAMILY HISTORY: Noncontributory. PHYSICAL EXAMINATION: VITAL SIGNS: T-max 98.8, blood pressure 99/67, pulse 118, and O2 saturation 98% . SKIN: Not remarkable. Peripheral IV access. GENERAL: The patient is voiding in a bedside commode. No lymphadenopathy. HEENT: Ocular movements conjugate. Oral cavity with quite a few missing teeth. Remainder ones with moderate decay and gum disease. Nasal passages are patent. Ear examination normal. NECK: Supple. No jugular vein distention or carotid bruits. LUNGS: With diminished breath sounds in the left side with few crackles and wheezing. HEART: S1 and S2. Regular rate. No murmurs. No S3 or S4. ABDOMEN: Soft, not distended or tender. No ascites. : No bladder distention. MUSCULOSKELETAL: No joint inflammatory activity. She does have tenderness in a variety of sites of her body, probably from the infection. Pulses 1+ in dorsalis pedis. 1+ edema in lower extremities. Moves extremities equally with limitations imposed by her acute illness. NEUROLOGIC: She is awake, knows her name, knows she is in the hospital and the year. Her speech appeared normal. She has limited vocabulary, and she has limited ability to provide an account. LABORATORY DATA: Chemistry now is sodium 128, creatinine and glucose 715. Microbiology with negative respiratory virus panel except for rhinovirus, which is probably not meaningful for this patient's presentation and blood cultures are pending. IMAGING DATA: Chest, abdomen, and pelvis CT with dense consolidation in the left lung within the left lower lobe. There are also patchy infiltrative changes in right upper lobe and right lower lung marcelino. Marked splenomegaly similar to previous exam. ASSESSMENT: Type 1 diabetes with post influenza pneumonia; worsening renal function; history of recently diagnosed ITP, on corticosteroids, although I do not see it listed in her current medications. The dose of Zosyn needs to be adjusted, but I will rather switch her to a cephalosporin, I will switch her to Rocephin. Continue the remainder antimicrobials. The stomatitis can continue to be treated with acyclovir or she can be switched to oral Valtrex or similar, adjusted for renal function. If she had been on corticosteroids and this needs to be inquired with her mom, then she might need stress dose steroids to compensate during the acute illness episode. Staphylococcus aureus/MRSA is a concern in patients with post influenza pneumonia, so we will have to continue monitoring her blood cultures and progress of the areas of pneumonitis. She may develop infected pleural effusion and necrotizing features. Job ID: [id number] MTDD
[2019-01-27] MEDS: Lactated Ringer's 1,000 ML IV SCH ×3 (00:28→10:47)
[2019-01-27] MEDS: Insulin Regular 100 units/100 ml in NS IVPB SCH ×2 (00:29→21:23)
[2019-01-27 01:30] LABS: Albumin 2.5 g/dL (3.5-5.0); Anion Gap 14 mmol/L (10-20); BUN (Urea Nitrogen) 35 mg/dL (7.0-18.7); BUN/Creatinine Ratio 18.52; Calc. Creatinine Clearance 65 mL/min (70-130); Calcium 8.2 mg/dL (7.8-10.44); Carbon Dioxide 16 mmol/L (22-29); Chloride 110 mmol/L (98-107); Estimated GFR-MDRD 31; Glucose 452 mg/dL (70-105); Magnesium 1.8 mg/dL (1.6-2.6); Phosphorus 2.1 mg/dL (2.3-4.7); Potassium 3.7 mmol/L (3.5-5.1); Sodium 136 mmol/L (136-145)
[2019-01-27 04:21] LABS: ALT (SGPT) 7 U/L (8-55); AST (SGOT) 10 U/L (5-34); Albumin 2.3 g/dL (3.5-5.0); Alkaline Phosphatase 71 U/L (40-110); Anion Gap 15 mmol/L (10-20); BUN (Urea Nitrogen) 36 mg/dL (7.0-18.7); Bilirubin, Total 0.9 mg/dL (0.2-1.2); Calc. Creatinine Clearance 68 mL/min (70-130); Calcium 8.2 mg/dL (7.8-10.44); Carbon Dioxide 17 mmol/L (22-29); Chloride 111 mmol/L (98-107); Estimated GFR-MDRD 33; Globulin 2.8 g/dL (2.4-3.5); Glucose 385 mg/dL (70-105); Magnesium 1.7 mg/dL (1.6-2.6); Potassium 3.5 mmol/L (3.5-5.1); Protein, Total 5.1 g/dL (6.0-8.3); Sodium 139 mmol/L (136-145)
[2019-01-27] MEDS: Piperacillin/Tazobactam 3.375 GM in Sodium Chloride 0.9% 100 ML IVPB SCH (05:10)
[2019-01-27] MEDS: Acetaminophen 325 MG TAB PO PRN (05:10)
[2019-01-27] MEDS: Vancomycin HCl 1.25 GM in Sodium Chloride 0.9% 250 ML 250 ML IVPB SCH (05:13)
[2019-01-27 06:19] LABS: Band 22 % (5-11); Hemoglobin 6.4 g/dL (12.0-16.0); Lymphocytes 8 % (21-51); MDiff Complete? YES; Mean Corpuscular HGB CONC 33.9 g/dL (32.0-36.0); Mean Corpuscular Hemoglobin 29.5 pg (27.0-31.0); Mean Corpuscular Volume 86.9 fL (78.0-98.0); Mean Platelet Volume 9.2 fL (7.4-10.4); Monocytes 3 % (0-10); Neutrophil 67 % (42-75); Platelet Count 55 thou/uL (130-400); Platelet Morphology Comment Appears Decreased; RBC Distribution Width 13.6 % (11.5-14.5); Red Blood Cell (RBC) Count 2.19 mill/uL (4.20-5.40); White Blood Cell (WBC) Count 2.9 thou/uL (4.8-10.8)
[2019-01-27 06:58] LABS: INR-International Normal Ratio 1.2; PTT 23.8 SEC (22.9-36.1); Prothrombin Time 15.5 SEC (12.0-14.7)
[2019-01-27 07:05] LABS: D-Dimer Test 8.99 *mcg/mL (0.27-0.43)
[2019-01-27 07:16] LABS: Platelet Count 86 thou/uL (130-400)
[2019-01-27 07:31] LABS: Fibrinogen 1093 mg/dL (253-463)
[2019-01-27 07:49] LABS: FSP-Qualitative ABNORMAL (Normal); FSP-Semiquantitative >=20 & <40 mcg/mL (Less than 5)
[2019-01-27] MEDS ORDERED: Dextrose 5% in Water 1,000 ML IV PRN (08:15)
[2019-01-27] MEDS ORDERED: Dextrose 50% Abboject 50 ML SYRINGE SLOW IVP PRN (08:15)
--- NOTE | 2019-01-27 08:31 | PDOC.HOSPP ---
- Subjective Encounter Date: 01/27/19 Encounter Time: 08:27 Subjective: 28 y/o female with DM, cognitive impairment, ITP and others admitted with worsening cough, SOB and fever associated with hyperglycemia and multiple electrolyte and acid/base derranagements. Found to have sepsis with possible DIC , and DKA from pneumonia. Started on IVF, broad spectrum antimicrobials, IVF and oxygen supplementation with improvement. Feeling better. Complains of hunger. Also having some confusion with visual hallucinations. Fever has subsided. - Objective Vital Signs & Weight: Vital Signs (12 hours) Temp Pulse Resp Pulse Ox 01/27/19 07:16 97.6 F 01/27/19 06:55 109 H 22 H 01/27/19 03:40 97.2 F L 01/27/19 02:27 106 H 22 H 98 01/26/19 23:29 97.9 F 01/26/19 22:59 112 H 20 94 L Weight Weight 207 lb Most Recent Monitor Data Heart Rate from ECG 104 NIBP 137/92 NIBP BP-Mean 107 Respiration from ECG 12 SpO2 95 I&O: 01/26/19 01/27/19 01/28/19 06:59 06:59 06:59 Intake Total 6080 410 Output Total 3050 Balance 3030 410 Result Diagrams: 01/27/19 03:52 01/27/19 03:52 Additional Labs: Accuchecks 01/27/19 01/27/19 01/27/19 08:03 06:56 05:53 POC Glucose 342 H 352 H 322 H 01/27/19 01/27/19 01/27/19 05:00 03:54 03:06 POC Glucose 383 H 351 H 363 H 01/27/19 01/27/19 01/27/19 02:06 01:11 00:06 POC Glucose 368 H 399 H 468 H 01/26/19 01/26/19 01/26/19 23:09 22:08 21:12 POC Glucose 408 H 391 H 414 H 01/26/19 01/26/19 01/26/19 20:08 19:29 18:27 POC Glucose 380 H 398 H 370 H 01/26/19 01/26/19 01/26/19 16:07 15:13 13:59 POC Glucose 344 H 318 H 331 H 01/26/19 01/26/19 01/26/19 12:00 10:53 08:56 POC Glucose 291 H 296 H 447 H 01/26/19 08:05 POC Glucose 473 H Hospitalist ROS - Medication Medications: Active Medications Generic Name Dose Route Start Last Admin Trade Name Christine PRN Reason Stop Dose Admin Acetaminophen 650 mg 01/26/19 09:40 01/27/19 05:10 Tylenol PO 650 mg Q4H PRN Administration Headache/Fever/Mild Pain (1-3) Albuterol/Ipratropium 3 ml 01/26/19 14:30 01/27/19 06:55 Duoneb NEB 3 ml [id number] KHAI Administration Insulin Human Regular 100 101 mls @ 0 mls/hr 01/26/19 06:00 01/27/19 00:29 units/ Sodium Chloride IVPB 101 mls INF KHAI Administration Titrate Piperacillin Sod/Tazobactam 100 mls @ 200 mls/hr 01/26/19 12:00 01/27/19 05: 10 Sod 3.375 gm/ Sodium Chloride IVPB 100 mls Q6HR KHAI Administration Vancomycin HCl 1.25 gm/ Sodium 250 mls @ 166.667 mls/hr 01/27/19 06:00 05:13 Chloride IVPB 250 mls 0600 KHAI Administration Lactated Ringer's 1,000 mls @ 200 mls/hr 01/27/19 00:30 01/27/19 05:10 Lactated Ringer's IV 1,000 mls .Q5H KHAI Administration Sodium Chloride 10 ml 01/26/19 21:00 01/26/19 20:21 Flush - Normal Saline IVF 10 ml Q12HR KHAI Administration - Exam General Appearance: awake alert Eye: anicteric sclera ENT: normocephalic atraumatic, moist mucosa Neck: supple, symmetric Heart: RRR Heart - other findings: tachycardic Respiratory: no ronchi, normal chest expansion Respiratory - other findings: Left base and mid zone crackles noted Gastrointestinal: soft, non-distended, normal bowel sounds Extremities: no cyanosis, no edema Neurological: cranial nerve grossly intact, no focal deficits Neurological - other findings: oriented x 3. visual hallucinations noted Hosp A/P (1) Severe sepsis Code(s): A41.9 - SEPSIS, UNSPECIFIED ORGANISM; R65.20 - SEVERE SEPSIS WITHOUT SEPTIC SHOCK Status: Acute (2) Pneumonia Code(s): J18.9 - PNEUMONIA, UNSPECIFIED ORGANISM Status: Acute (3) Bacteremia due to Streptococcus pneumoniae Code(s): R78.81 - BACTEREMIA Status: Acute (4) Streptococcus pneumoniae pneumonia Code(s): J13 - PNEUMONIA DUE TO STREPTOCOCCUS PNEUMONIAE Status: Acute (5) DKA (diabetic ketoacidoses) Code(s): E11.10 - TYPE 2 DIABETES MELLITUS WITH KETOACIDOSIS WITHOUT COMA Status: Acute (6) Metabolic acidosis Code(s): E87.2 - ACIDOSIS Status: Acute (7) Hyperchloremic metabolic acidosis Code(s): E87.2 - ACIDOSIS Status: Acute (8) Acute on chronic anemia Code(s): D64.9 - ANEMIA, UNSPECIFIED Status: Acute (9) Thrombocytopenia Code(s): D69.6 - THROMBOCYTOPENIA, UNSPECIFIED Status: Acute (10) Obesity Code(s): E66.9 - OBESITY, UNSPECIFIED Status: Acute (11) Cognitive impairment Code(s): R41.89 - OTH SYMPTOMS AND SIGNS W COGNITIVE FUNCTIONS AND AWARENESS Status: Acute (12) Acute metabolic encephalopathy Code(s): G93.41 - METABOLIC ENCEPHALOPATHY Status: Acute (13) History of ITP Code(s): Z86.2 - PRSNL HISTORY OF DIS OF THE BLD/BLD-FORM ORG/IMMUN MECHNSM Status: Acute (14) Volume depletion Code(s): E86.9 - VOLUME DEPLETION, UNSPECIFIED Status: Acute (15) TU (acute kidney injury) Code(s): N17.9 - ACUTE KIDNEY FAILURE, UNSPECIFIED Status: Acute (16) CKD (chronic kidney disease) stage 3, GFR 30-59 ml/min Code(s): N18.3 - CHRONIC KIDNEY DISEASE, STAGE 3 (MODERATE) Status: Acute - Plan Transition insulin therapy to subcut. Give 60 units of insulin and stop IV insulin 2 hours later Start sliding scale Continue IVF fluid. DC tamiflu and acyclovire and continue cefepime, vanc and levaquin. Awaiting ID input. Transfuse 1 PRBC. Monitor renal function and electrolytes and correct as needed. Restart diet. increase activity.
[2019-01-27] MEDS ORDERED: Insulin Glargine 60 UNITS in Pre-Filled Syringe 1 EACH SC SCH (09:00)
[2019-01-27 09:14] LABS: Albumin 2.4 g/dL (3.5-5.0); Anion Gap 16 mmol/L (10-20); BUN (Urea Nitrogen) 35 mg/dL (7.0-18.7); BUN/Creatinine Ratio 19.34; Calc. Creatinine Clearance 68 mL/min (70-130); Calcium 8.2 mg/dL (7.8-10.44); Carbon Dioxide 16 mmol/L (22-29); Chloride 110 mmol/L (98-107); Estimated GFR-MDRD 33; Glucose 384 mg/dL (70-105); Phosphorus 2.4 mg/dL (2.3-4.7); Potassium 3.5 mmol/L (3.5-5.1); Sodium 138 mmol/L (136-145)
[2019-01-27 09:17] LABS: Hemoglobin A1c 9.8 % (4.0-6.0)
[2019-01-27] MEDS: Sodium Bicarbonate Tab 325 MG TAB PO SCH ×3 (10:45→20:28)
[2019-01-27] MEDS: cefTRIAXone\\ROCEPHIN 2 GM in Sodium Chloride 0.9% 100 ML IVPB SCH (10:46)
[2019-01-27 13:23] LABS: Albumin 1.8 g/dL (3.5-5.0); Anion Gap 14 mmol/L (10-20); BUN (Urea Nitrogen) 29 mg/dL (7.0-18.7); BUN/Creatinine Ratio 23.58; Calc. Creatinine Clearance 100 mL/min (70-130); Calcium 7.6 mg/dL (7.8-10.44); Carbon Dioxide 16 mmol/L (22-29); Chloride 112 mmol/L (98-107); Estimated GFR-MDRD 52; Glucose 271 mg/dL (70-105); Potassium 3.7 mmol/L (3.5-5.1); Sodium 138 mmol/L (136-145)
[2019-01-27] MEDS ORDERED: Sodium Bicarbonate 75 MEQ in Sodium Chloride 0.45% 1,000 ML IV SCH (13:45)
[2019-01-27] MEDS ORDERED: HumaLOG 300 UNITS/3 ML VIAL SC SCH (18:15)
[2019-01-27] MEDS ORDERED: Insulin Glargine 40 UNITS in Pre-Filled Syringe 1 EACH SC SCH (18:15)
[2019-01-27 21:18] LABS: Actual Bicarbonate (HCO3a) 17.4 mEq/L (22-28); Analyzer IN Cardio OR; CO2 Tension 31.8 mmHg (35.0-45.0); Calcium, Ionized 1.16 mmol/L (1.12-1.30); Carboxyhemoglobin (COHb) 0.9 gm% (0.0-3.0); Hemoglobin (Hb) 12.1 g/dL (12.0-16.0); Potassium - ABG Lab 4.26 mmol/L (3.70-5.30); pH, Arterial 7.36 (7.35-7.45)
[2019-01-27 21:24] LABS: Puncture Site LRADIAL
[2019-01-27] MEDS: Sodium Chloride 0.9% 1,000 ML IV SCH (21:24)
[2019-01-27 21:34] LABS: Anion Gap 16 mmol/L (10-20); BUN (Urea Nitrogen) 42 mg/dL (7.0-18.7); Calc. Creatinine Clearance 59 mL/min (70-130); Calcium 8.2 mg/dL (7.8-10.44); Carbon Dioxide 16 mmol/L (22-29); Chloride 106 mmol/L (98-107); Estimated GFR-MDRD 28; Glucose 642 mg/dL (70-105); Potassium 4.4 mmol/L (3.5-5.1); Sodium 134 mmol/L (136-145)
--- NOTE | 2019-01-27 21:51 | CON ---
DATE OF CONSULTATION: REASON FOR CONSULT: Pancytopenia. HISTORY OF PRESENT ILLNESS: Ms. Preciado is a 28-year-old female with a history of pancytopenia with severe thrombocytopenia secondary to splenomegaly from steatohepatitis. She also has a history of ITP with steroids in 2011. She presented to the emergency room with sepsis. She was diagnosed with the flu earlier in the week, given Tamiflu, but have progressive shortness of breath and fever. She was diagnosed here with pneumonia and admitted to the [facility] for further treatment. On admission, her white count was 10.6, hemoglobin was 8, and platelet count was 62,000. Over the course of the last 36 hours, her white count has dropped to 2.9, hemoglobin has dropped to 6.4, and platelet count is stable at 86,000. The patient has been treated with IV antibiotics, IV fluids and states she is feeling better. She did have a DIC panel performed, which showed mild DIC. She has scattered bruising on her arms and face. No petechiae. No evidence of bleeding. She denies any complaints at this time other than fatigue. PAST MEDICAL HISTORY: 1. Insulin-dependent diabetes. 2. Pancytopenia. 3. Splenomegaly. 4. Chronic kidney disease. 5. ITP. 6. History of autoimmune hemolytic anemia in 2011. 7. Mild mental retardation. 8. Morbid obesity. 9. Left sided hydronephrosis. PAST SURGICAL HISTORY: Dental surgery for abscess. ALLERGIES: TO BACTRIM, KEFLEX, LISINOPRIL, AND LOSARTAN. HOME MEDICATIONS: 1. Ranitidine. 2. Lantus. 3. Albuterol. FAMILY HISTORY: Noncontributory. SOCIAL HISTORY: Lives with her mother. No alcohol, tobacco, or illicit drug use. REVIEW OF SYSTEMS: A 10-point review of systems is negative except for noted in HPI. PHYSICAL EXAMINATION: VITAL SIGNS: Temperature is 98, pulse is 115, respiratory rate 24, and BP is 134/92. GENERAL: This is a well-developed, well-nourished female, in no acute distress. HEENT: Normocephalic and atraumatic. Pupils are equal and reactive to light. NECK: Supple. CV: Regular rate and rhythm. LUNGS: Clear. ABDOMEN: Obese and nontender. Bowel sounds are positive. EXTREMITIES: No clubbing or cyanosis. SKIN: No rash. HEMATOLOGICAL: She has scattered bruising on her face and arms. NEUROLOGICAL: Nonfocal. PERTINENT LABS AND X-RAYS: Current WBCs 2.9, hemoglobin 6.4, hematocrit 19.0, platelet count is 86,000, 64% neutrophils, 8% lymphocytes, and 22% bands. PT is 15.5, INR is 1.2, and PTT is 23.8, fibrinogen is 1093. Fibrinogen degradation products are high. Her D-dimer is 8.99. Sodium is 138, potassium 3.7, chloride 112, CO2 of 16, BUN is 29, creatinine 1.23, calcium is 7.6, bilirubin is 0.9, AST is 10, ALT 7, and alkaline phosphatase is 71. Serum total protein 5.1, albumin 2.3, and globulin 2.8. Chest, abdomen, and pelvis CT shows left lower lobe pneumonia. She has marked splenomegaly with her spleen measuring 19 cm. There is nonspecific mediastinal adenopathy. Again, chronic left-sided hydronephrosis. ASSESSMENT: 1. Strep pneumonia bacteremia. 2. History of chronic pancytopenia. 3. Mild DIC secondary to sepsis. DISCUSSION: Case has been discussed with Dr. Holly. The patient's DIC is likely due to her pneumonia, which she has been on antibiotics. Her hemoglobin has dropped to 6.4. One unit of packed RBCs is ordered. She has a history of warm autoantibody. However, they have had no difficulty getting blood in the past. She has no evidence of hemolysis at this time as her bilirubin is normal. We would recommend treating her sepsis and her counts should return to baseline. Thank you for the consult. We will follow along with her CBC. Job ID: [id number]
[2019-01-27] MEDS ORDERED: Diabetic Tussin 200 MG/10 ML UDCUP PO PRN (23:25)
[2019-01-27] MEDS ORDERED: Cepastat Lozenges 1 LOZ PO PRN (23:25)
[2019-01-27] MEDS ORDERED: Sodium Chloride 0.9% 500 ML IV SCH (23:30)
[2019-01-28] MEDS: Benzonatate 100 MG CAP PO PRN ×2 (00:02→07:20)
[2019-01-28] MEDS: Ondansetron PF 4 MG/2 ML Vial IVP PRN (00:13)
[2019-01-28] MEDS: Sodium Chloride 0.9% 1,000 ML IV SCH ×2 (04:10→06:12)
[2019-01-28 04:42] LABS: ALT (SGPT) Less than 7 U/L (8-55); AST (SGOT) 10 U/L (5-34); Albumin 2.5 g/dL (3.5-5.0); Alkaline Phosphatase 80 U/L (40-110); Anion Gap 17 mmol/L (10-20); BUN (Urea Nitrogen) 43 mg/dL (7.0-18.7); Bilirubin, Total 0.5 mg/dL (0.2-1.2); Calc. Creatinine Clearance 65 mL/min (70-130); Calcium 8.5 mg/dL (7.8-10.44); Carbon Dioxide 12 mmol/L (22-29); Chloride 111 mmol/L (98-107); Estimated GFR-MDRD 31; Globulin 2.8 g/dL (2.4-3.5); Glucose 294 mg/dL (70-105); Magnesium 1.8 mg/dL (1.6-2.6); Potassium 3.9 mmol/L (3.5-5.1); Protein, Total 5.3 g/dL (6.0-8.3); Sodium 136 mmol/L (136-145)
[2019-01-28 04:58] LABS: Vancomycin, Trough 14.1 ug/mL
[2019-01-28] MEDS: Vancomycin HCl 1.25 GM in Sodium Chloride 0.9% 250 ML 250 ML IVPB SCH (05:08)
[2019-01-28 05:23] LABS: Band 10 % (5-11); Hemoglobin 7.8 g/dL (12.0-16.0); Lymphocytes 11 % (21-51); MDiff Complete? YES; Mean Corpuscular HGB CONC 32.1 g/dL (32.0-36.0); Mean Corpuscular Hemoglobin 27.9 pg (27.0-31.0); Mean Platelet Volume 8.5 fL (7.4-10.4); Monocytes 3 % (0-10); Myelocyte 1 % (0-0); Neutrophil 75 % (42-75); Platelet Count 97 thou/uL (130-400); Platelet Morphology Comment Appears Decreased; RBC Distribution Width 13.7 % (11.5-14.5); Red Blood Cell (RBC) Count 2.78 mill/uL (4.20-5.40); White Blood Cell (WBC) Count 6.5 thou/uL (4.8-10.8)
[2019-01-28] MEDS ORDERED: HumaLOG 300 UNITS/3 ML VIAL SC SCH (08:00)
[2019-01-28] MEDS ORDERED: Insulin Glargine 100 UNITS in Pre-Filled Syringe 1 EACH SC SCH (09:00)
--- NOTE | 2019-01-28 10:26 | PDOC.MOPN ---
Interval History: feels better, continues to cough. Mom at bedside - Vital Signs Vital Signs: Vital Signs (12 hours) Temp Pulse Resp Pulse Ox 01/28/19 08:00 98 01/28/19 07:49 97.6 F 01/28/19 07:33 102 H 23 H 94 L 01/28/19 04:00 98.0 F 01/28/19 00:00 97.8 F Weight Weight 217 lb 9.6 oz Most Recent Monitor Data Heart Rate from ECG 105 NIBP 139/92 NIBP BP-Mean 107 Respiration from ECG 20 SpO2 93 - Physical Exam General: Alert, Oriented x3, No acute distress HEENT: Atraumatic, PERRLA, EOMI, Mucous membr. moist/pink Lungs: Clear to auscultation, Normal air movement Cardiovascular: Regular rate, Normal S1, Normal S2, No murmurs, Gallops, Rubs Abdomen: Normal bowel sounds, Soft, No tenderness, No hepatospenomegaly, No masses Extremities: No clubbing, No cyanosis, No edema, Normal pulses, No tenderness/ swelling Skin: No rashes, No breakdown, No significant lesion Psych/Mental Status: Mental status NL, Mood NL - Labs Result Diagrams: 01/28/19 03:53 01/28/19 03:53 Lab results: Laboratory Results - last 24 hr 01/28/19 10:11: POC Glucose 167 H 01/28/19 08:48: POC Glucose 158 H 01/28/19 06:08: POC Glucose 157 H 01/28/19 05:08: POC Glucose 200 H 01/28/19 04:18: POC Glucose 246 H 01/28/19 03:53: WBC 6.5, RBC 2.78 L, Hgb 7.8 L, Hct 24.2 L, MCV 87.0, MCH 27.9, MCHC 32.1, RDW 13.7, Plt Count 97 L, MPV 8.5, Neutrophils % (Manual) 75, Band Neuts % (Manual) 10, Lymphocytes % (Manual) 11 L, Monocytes % (Manual) 3, Myelocytes % 1 H, Plt Morphology Comment Appears Decreased L 01/28/19 03:53: B-Hydroxybutyrate 0.05 01/28/19 03:53: Sodium 136, Potassium 3.9, Chloride 111 H, Carbon Dioxide 12 L, Anion Gap 17, BUN 43 H, Creatinine 1.90 H, Estimated GFR (MDRD) 31, Glucose 294 H, Calcium 8.5, Magnesium 1.8, Total Bilirubin 0.5, AST 10, ALT Less than 7 L, Alkaline Phosphatase 80, Serum Total Protein 5.3 L, Albumin 2.5 L, Globulin 2.8 , Albumin/Globulin Ratio 0.9 L 01/28/19 03:53: Vancomycin Trough 14.1 01/28/19 03:09: POC Glucose 337 H 01/28/19 00:08: POC Glucose 461 H 01/27/19 23:06: POC Glucose 471 H 01/27/19 22:05: POC Glucose Greater than 550 H* 01/27/19 21:06: Sodium 134 L, Potassium 4.4, Chloride 106, Carbon Dioxide 16 L, Anion Gap 16, BUN 42 H, Creatinine 2.08 H, Estimated GFR (MDRD) 28, Glucose 642 H*, Calcium 8.2 01/27/19 20:53: Specimen Type ARTERIAL, Puncture Site LRADIAL, Bicarbonate Actual 17.4 L, ABG pH 7.36, ABG pCO2 31.8 L, ABG pO2 70.0 L, ABG O2 Sat Calc/ Joe 93.0 L, ABG O2 Content 15.7 L, ABG Base Excess -7.0 L, ABG Hematocrit 36.0 , ABG Hemoglobin 12.1, ABG Oxyhemoglobin 91.9 L, ABG Carboxyhemoglobin 0.9, ABG Methemoglobin 0.30, ABG Deoxyhemoglobin 6.9 H, Junior Test POSITIVE, A-a O2 Gradient 39.980 H, Ionized Calcium 1.16, Inspired O2 21, Sodium 132 L, Potassium 4.26, Chloride 104 01/27/19 20:36: POC Glucose Greater than 550 H* 01/27/19 17:50: POC Glucose 499 H 01/27/19 12:49: Sodium 138, Potassium 3.7, Chloride 112 H, Carbon Dioxide 16 L, Anion Gap 14, BUN 29 H, Creatinine 1.23 H, Estimated GFR (MDRD) 52, BUN/ Creatinine Ratio 23.58, Glucose 271 H, Calcium 7.6 L, Phosphorus 2.0 L, Albumin 1.8 L 01/27/19 12:08: POC Glucose 345 H 01/27/19 09:18: Blood Type O POSITIVE, Antibody Screen POSITIVE H, Ab Screen Tube Method NEGATIVE, Antibody Identification Warm Auto, Direct Antiglob Test POSITIVE, Crossmatch See Detail Status: lab reviewed by me A/P - Problem (1) Acute on chronic anemia Current Visit: Yes Code(s): D64.9 - ANEMIA, UNSPECIFIED Status: Acute (2) Severe sepsis Current Visit: Yes Code(s): A41.9 - SEPSIS, UNSPECIFIED ORGANISM; R65.20 - SEVERE SEPSIS WITHOUT SEPTIC SHOCK Status: Acute (3) Pancytopenia Current Visit: No Code(s): D61.818 - OTHER PANCYTOPENIA Status: Chronic - Plan Plan: back to baseline on CBC Continue abx per Pulmonary will sign off
[2019-01-28] MEDS: guaiFENesin ER 600 MG TAB PO SCH ×2 (10:39→20:50)
[2019-01-28] MEDS: cefTRIAXone\\ROCEPHIN 2 GM in Sodium Chloride 0.9% 100 ML IVPB SCH (10:39)
[2019-01-28] MEDS ORDERED: Insulin Glargine 60 UNITS in Pre-Filled Syringe 1 EACH SC SCH (12:30)
[2019-01-28 12:41] LABS: Anion Gap 13 mmol/L (10-20); BUN (Urea Nitrogen) 41 mg/dL (7.0-18.7); Calc. Creatinine Clearance 76 mL/min (70-130); Calcium 8.4 mg/dL (7.8-10.44); Carbon Dioxide 19 mmol/L (22-29); Chloride 113 mmol/L (98-107); Estimated GFR-MDRD 36; Glucose 183 mg/dL (70-105); Potassium 3.8 mmol/L (3.5-5.1); Sodium 141 mmol/L (136-145)
--- NOTE | 2019-01-28 13:53 | PRG ---
DATE OF SERVICE: 01/28/2019 SERVICE: Pulmonary Medicine. INTERVAL HISTORY: The patient refuses to wear any oxygen. Denies any current chest discomfort, fevers, or chills. She is extremely hungry. She is upset about her diet. Because of her cognitive impairment, she is having a really challenging time being in the hospital with her current confinement. That being said, from a sepsis standpoint, she is much improved. There are no significant overnight events. She continues to cough and is bring up a little bit of phlegm. PHYSICAL EXAMINATION: VITAL SIGNS: Afebrile, pulse 103, blood pressure 144/110, respirations 28, and saturation 98% when she was on 1 L nasal cannula. HEENT: Normocephalic and atraumatic. Sclerae white. Conjunctivae pink. Oral and nasal mucosa are moist. She has herpetic lesions that appear to be well healed on her lips. LUNGS: Decent air entry. There are some rhonchus breath sounds on the right. No prolonged expiratory phase or wheezing is otherwise appreciated. HEART: Normal rate and regular. ABDOMEN: Soft, nontender, and nondistended. Bowel sounds are positive. MUSCULOSKELETAL: No cyanosis or clubbing. There is no pitting in the bilateral lower extremities. NEUROLOGIC: Grossly nonfocal. LABORATORY DATA: WBC 6.5, hemoglobin 7.8, platelets 97,000. Her band count is dropped to 10%, and her lymphocyte count is rebounding. Creatinine 1.70, which is back close to baseline. BUN 41 and gently downtrending. Anion gap 13, bicarb 19. Blood sugar is ranging from 167 to 183. Urinalysis is significant for glycosuria. Beta-hydroxybutyric acid is low. Respiratory virus panel is positive for rhinovirus. Urine cultures negative to date. One of two blood cultures from the 25th are growing Streptococcus pneumoniae. This is a pansensitive organism. ASSESSMENT: 1. Acute hypoxic respiratory failure, resolving. 2. Community-acquired pneumonia, severe. 3. Bacteremia secondary to Streptococcus pneumoniae. 4. Diabetic ketoacidosis. 5. History of asthma. DISCUSSION AND PLAN: We will continue her antibiotics. Primary Service is adding some subcutaneous insulin. Hopefully, we can get her off the insulin drip smoothly. If this occurs, she can be considered for transition to the floor. Rocephin is more than adequate to cover organism. As such, I will drop the Levaquin and vancomycin. She has good p.o. at this point. IV fluids will be interrupted. Pulmonary will continue to follow in this location, but if she transitions to the floor smoothly, we will sign off. She will require repeat chest x-ray in the outpatient setting in 6 weeks to make certain this dense infiltrate has resolved. Job ID: [id number]
--- NOTE | 2019-01-28 14:24 | PRG ---
DATE OF SERVICE: 01/28/2019 SUBJECTIVE: The patient is quite improved. She is able to have a conversation, although I had to insist a little bit. She is not very loquacious. Denies any headaches. No chest pain. The cough is less. Stomatitis has improved markedly. OBJECTIVE: VITAL SIGNS: She has been afebrile. LUNGS: Symmetric air entry. CARDIAC: S1, S2 regular rate. ABDOMEN: Soft, not distended or tender. No ascites. No bladder distention. LABORATORY DATA: White cell count is now at 6.5, hemoglobin 7.8, MCV 87 platelets 97. Microbiology shows Streptococcus pneumoniae in one set of blood cultures. Imaging, with the pneumonia, left lower lobe. ASSESSMENT AND DISCUSSION: Type 1 diabetes with post influenza Streptococcus pneumoniae recent diagnosed ITP, currently on IV Rocephin. She has received treatment now for about 2 or 3 days. Another 2 or 3 days to go with antimicrobial therapy and then it can be discontinued. Job ID: [id number]
--- NOTE | 2019-01-28 14:39 | PDOC.HOSPP ---
- Subjective Encounter Date: 01/28/19 Encounter Time: 14:38 Subjective: 28 y/o female with DM, cognitive impairment, ITP and others admitted with worsening cough, SOB and fever associated with hyperglycemia and multiple electrolyte and acid/base derranagements. Found to have sepsis with possible DIC , and DKA from pneumonia. Started on IVF, broad spectrum antimicrobials, IVF and oxygen supplementation with improvement. Feeling better. Confusion and hallucination is improved. - Objective Vital Signs & Weight: Vital Signs (12 hours) Temp Pulse Resp Pulse Ox 01/28/19 11:18 96.8 F L 01/28/19 11:08 99 22 H 01/28/19 08:00 98 01/28/19 07:49 97.6 F 01/28/19 07:33 102 H 23 H 94 L 01/28/19 04:00 98.0 F Weight Weight 217 lb 9.6 oz Most Recent Monitor Data Heart Rate from ECG 110 NIBP 144/110 NIBP BP-Mean 121 Respiration from ECG 30 SpO2 94 I&O: 01/27/19 01/28/19 01/29/19 06:59 06:59 06:59 Intake Total 6080 5935 1250 Output Total 3050 900 100 Balance 3030 5035 1150 Result Diagrams: 01/28/19 03:53 01/28/19 12:06 Additional Labs: Accuchecks 01/28/19 01/28/19 01/28/19 14:14 13:14 12:18 POC Glucose 174 H 173 H 167 H 01/28/19 01/28/19 01/28/19 11:11 10:11 08:48 POC Glucose 153 H 167 H 158 H 01/28/19 01/28/19 01/28/19 06:08 05:08 04:18 POC Glucose 157 H 200 H 246 H 01/28/19 01/28/19 01/27/19 03:09 00:08 23:06 POC Glucose 337 H 461 H 471 H 01/27/19 01/27/19 01/27/19 22:05 20:36 17:50 POC Glucose Greater than 550 H* Greater than 550 H* 499 H Hospitalist ROS - Medication Medications: Active Medications Generic Name Dose Route Start Last Admin Trade Name Freq PRN Reason Stop Dose Admin Acetaminophen 650 mg 01/26/19 09:40 01/27/19 05:10 Tylenol PO 650 mg Q4H PRN Administration Headache/Fever/Mild Pain (1-3) Albuterol/Ipratropium 3 ml 01/26/19 14:30 01/28/19 11:08 Duoneb NEB 3 ml [id number] KHAI Administration Guaifenesin 600 mg 01/28/19 09:00 01/28/19 10:39 Mucinex PO 600 mg Q12HR KHAI Administration Guaifenesin 200 mg 01/27/19 23:25 01/28/19 00:02 Robitussin Sf PO 200 mg Q4H PRN Administration Cough Insulin Human Regular 100 101 mls @ 0 mls/hr 01/26/19 06:00 01/27/19 21:23 units/ Sodium Chloride IVPB 101 mls INF KHAI Administration Titrate Ceftriaxone Sodium 2 gm/ 100 mls @ 200 mls/hr 01/27/19 10:00 01/28/19 10:39 Sodium Chloride IVPB 100 mls Q24HR KHAI Administration Ondansetron HCl 4 mg 01/26/19 09:40 01/28/19 00:13 Zofran IVP 4 mg Q6H PRN Administration Nausea/Vomiting Sodium Chloride 10 ml 01/26/19 21:00 01/28/19 10:39 Flush - Normal Saline IVF 10 ml Q12HR KHAI Administration - Exam General Appearance: awake alert Eye: anicteric sclera ENT: normocephalic atraumatic Neck: symmetric Heart: RRR Respiratory: no ronchi, normal chest expansion Respiratory - other findings: Fair air entry bilaterally with crackles and some traqnsmitted sound Gastrointestinal: soft, non-tender, non-distended, normal bowel sounds Extremities: no edema Neurological: cranial nerve grossly intact, no focal deficits Psychiatric: A&O x 3 Hosp A/P (1) Severe sepsis Code(s): A41.9 - SEPSIS, UNSPECIFIED ORGANISM; R65.20 - SEVERE SEPSIS WITHOUT SEPTIC SHOCK Status: Acute (2) Pneumonia Code(s): J18.9 - PNEUMONIA, UNSPECIFIED ORGANISM Status: Acute (3) Bacteremia due to Streptococcus pneumoniae Code(s): R78.81 - BACTEREMIA Status: Acute (4) Streptococcus pneumoniae pneumonia Code(s): J13 - PNEUMONIA DUE TO STREPTOCOCCUS PNEUMONIAE Status: Acute (5) DKA (diabetic ketoacidoses) Code(s): E11.10 - TYPE 2 DIABETES MELLITUS WITH KETOACIDOSIS WITHOUT COMA Status: Acute (6) Metabolic acidosis Code(s): E87.2 - ACIDOSIS Status: Acute (7) Hyperchloremic metabolic acidosis Code(s): E87.2 - ACIDOSIS Status: Acute (8) Acute on chronic anemia Code(s): D64.9 - ANEMIA, UNSPECIFIED Status: Acute (9) Thrombocytopenia Code(s): D69.6 - THROMBOCYTOPENIA, UNSPECIFIED Status: Acute (10) Obesity Code(s): E66.9 - OBESITY, UNSPECIFIED Status: Acute (11) Cognitive impairment Code(s): R41.89 - [facility] SYMPTOMS AND SIGNS W COGNITIVE FUNCTIONS AND AWARENESS Status: Acute (12) Acute metabolic encephalopathy Code(s): G93.41 - METABOLIC ENCEPHALOPATHY Status: Acute (13) History of ITP Code(s): Z86.2 - PRSNL HISTORY OF DIS OF THE BLD/BLD-FORM ORG/IMMUN MECHNSM Status: Acute (14) Volume depletion Code(s): E86.9 - VOLUME DEPLETION, UNSPECIFIED Status: Acute (15) TU (acute kidney injury) Code(s): N17.9 - ACUTE KIDNEY FAILURE, UNSPECIFIED Status: Acute (16) CKD (chronic kidney disease) stage 3, GFR 30-59 ml/min Code(s): N18.3 - CHRONIC KIDNEY DISEASE, STAGE 3 (MODERATE) Status: Acute - Plan Will attempt to transition to subcut insulin today. Will change to bicarb containing fluid due to worsening hyperchloremic acidosis Monitor renal function and electrolytes and correct as needed. Diabetic diet as tolerated Continue antibiotics as per ID. increase activity.
[2019-01-28] MEDS ORDERED: Sodium Bicarbonate 75 MEQ in Sodium Chloride 0.45% 1,000 ML IV SCH (14:45)
[2019-01-28] MEDS: Acyclovir 400 mg Tablet PO SCH ×2 (16:02→20:50)
[2019-01-28] MEDS: Acetaminophen 325 MG TAB PO PRN (20:50)
[2019-01-28] MEDS: Insulin Glargine 45 UNITS in Pre-Filled Syringe 1 EACH SC SCH (20:50)
[2019-01-29] MEDS: Acetaminophen 325 MG TAB PO PRN ×4 (02:39→20:25)
[2019-01-29] MEDS: HumaLOG 300 UNITS/3 ML VIAL SC PRN (05:35)
[2019-01-29] MEDS ORDERED: Vancomycin 1.5 GRAM/300 ML BAG 1.5 GM in Premix Bag 1 BAG IVPB SCH (06:00)
[2019-01-29 06:16] LABS: Albumin 2.2 g/dL (3.5-5.0); Anion Gap 9 mmol/L (10-20); BUN (Urea Nitrogen) 42 mg/dL (7.0-18.7); BUN/Creatinine Ratio 24.85; Calc. Creatinine Clearance 77 mL/min (70-130); Calcium 8.1 mg/dL (7.8-10.44); Carbon Dioxide 22 mmol/L (22-29); Chloride 113 mmol/L (98-107); Estimated GFR-MDRD 36; Glucose 232 mg/dL (70-105); Sodium 140 mmol/L (136-145)
[2019-01-29 06:17] LABS: Band 3 % (5-11); Eosinophils 1 % (0-10); Hemoglobin 8.1 g/dL (12.0-16.0); Lymphocytes 22 % (21-51); MDiff Complete? YES; Mean Corpuscular HGB CONC 32.4 g/dL (32.0-36.0); Mean Corpuscular Hemoglobin 27.5 pg (27.0-31.0); Mean Platelet Volume 9.1 fL (7.4-10.4); Monocytes 1 % (0-10); Neutrophil 73 % (42-75); Platelet Count 80 thou/uL (130-400); Platelet Morphology Comment Appears Decreased; RBC Distribution Width 14.1 % (11.5-14.5); Red Blood Cell (RBC) Count 2.92 mill/uL (4.20-5.40); White Blood Cell (WBC) Count 4.1 thou/uL (4.8-10.8)
[2019-01-29] MEDS: Acyclovir 400 mg Tablet PO SCH ×3 (08:18→20:24)
[2019-01-29] MEDS: guaiFENesin ER 600 MG TAB PO SCH ×2 (08:18→20:24)
[2019-01-29] MEDS ORDERED: Insulin Glargine 50 UNITS in Pre-Filled Syringe 1 EACH SC SCH (09:00)
[2019-01-29] MEDS: cefTRIAXone\\ROCEPHIN 2 GM in Sodium Chloride 0.9% 100 ML IVPB SCH (10:55)
[2019-01-29] MEDS: Lidocaine 5% Patch TD SCH (10:55)
--- NOTE | 2019-01-29 14:21 | PDOC.HOSPP ---
- Subjective Encounter Date: 01/29/19 Encounter Time: 11: Subjective: 28 y/o female with DM, cognitive impairment, ITP and others admitted with worsening cough, SOB and fever associated with hyperglycemia and multiple electrolyte and acid/base derangements. Found to have sepsis with possible DIC, and DKA from pneumonia. Started on IVF, broad spectrum antimicrobials,and oxygen supplementation with improvement. complaining of neck pain but otherwise feeling better. - Objective Vital Signs & Weight: Vital Signs (12 hours) Temp Pulse Resp BP Pulse Ox 01/29/19 13:43 101 H 20 93 L 01/29/19 11:52 99.5 F 118 H 18 152/81 H 91 L 01/29/19 10:06 105 H 20 94 L 01/29/19 07:52 97.5 F L 107 H 16 128/56 L 92 L 01/29/19 06:21 108 H 24 H 93 L Weight Weight 217 lb 9.6 oz Most Recent Monitor Data Heart Rate from ECG 116 NIBP 144/110 NIBP BP-Mean 121 Respiration from ECG 25 SpO2 94 I&O: 01/28/19 01/29/19 01/30/19 06:59 06:59 06:59 Intake Total 5935 3085 Output Total 900 550 Balance 5035 7115 Result Diagrams: 01/29/19 05:23 01/29/19 05:23 Additional Labs: Accuchecks 01/29/19 01/29/19 01/29/19 13:04 11:59 03:50 POC Glucose 86 122 H 237 H 01/28/19 01/28/19 01/28/19 20:27 15:36 01:14 POC Glucose 193 H 170 H 417 H Hospitalist ROS - Medication Medications: Active Medications Generic Name Dose Route Start Last Admin Trade Name Freq PRN Reason Stop Dose Admin Acetaminophen 650 mg 01/26/19 09:40 01/29/19 12:57 Tylenol PO 650 mg Q4H PRN Administration Headache/Fever/Mild Pain (1-3) Acyclovir 400 mg 01/28/19 15:00 01/29/19 08:18 Zovirax PO 01/31/19 15:01 400 mg TID KHAI Administration Albuterol/Ipratropium 3 ml 01/26/19 14:30 01/29/19 13:43 Duoneb NEB 3 ml [id number] KHAI Administration Guaifenesin 600 mg 01/28/19 09:00 01/29/19 08:18 Mucinex PO 600 mg Q12HR KHAI Administration Guaifenesin 200 mg 01/27/19 23:25 01/28/19 00:02 Robitussin Sf PO 200 mg Q4H PRN Administration Cough Insulin Human Regular 100 101 mls @ 0 mls/hr 01/26/19 06:00 01/27/19 21:23 units/ Sodium Chloride IVPB 101 mls INF KHAI Administration Titrate Ceftriaxone Sodium 2 gm/ 100 mls @ 200 mls/hr 01/27/19 10:00 01/29/19 10:55 Sodium Chloride IVPB 100 mls Q24HR KHAI Administration Insulin Glargine 50 units/ 0.5 mls @ 0 mls/hr 01/29/19 09:00 01/29/19 08:18 Miscellaneous Medication SC 0.5 mls QAM KHAI Administration Insulin Glargine 45 units/ 0.45 mls @ 0 mls/hr 01/28/19 21:00 01/28/19 20:50 Miscellaneous Medication SC 0.45 mls HS KHAI Administration Insulin Human Lispro 0 units 01/27/19 08:15 01/29/19 05:35 Humalog SC 6 unit .AGGRESSIVE SLIDING PRN Administration Aggressive Correctional Scale Lidocaine 1 patch 01/29/19 11:00 01/29/19 10:55 Lidoderm 5% Patch TD 1 patch 1100 KHAI Administration Ondansetron HCl 4 mg 01/26/19 09:40 01/28/19 00:13 Zofran IVP 4 mg Q6H PRN Administration Nausea/Vomiting Sodium Chloride 10 ml 01/26/19 21:00 01/29/19 08:19 Flush - Normal Saline IVF 10 ml Q12HR KHAI Administration - Exam General Appearance: awake alert General - other findings: obese Eye: anicteric sclera ENT: normocephalic atraumatic Neck: symmetric Neck - other findings: mild right shoulder and neck tenderness Heart: RRR Respiratory: no wheezes, no ronchi, normal chest expansion Respiratory - other findings: bilateral fine crackles noted Gastrointestinal: soft, non-tender, non-distended, normal bowel sounds Gastrointestinal - other findings: morbidly obese Extremities: no cyanosis, no edema Neurological: cranial nerve grossly intact, no focal deficits Psychiatric: A&O x 3 Hosp A/P (1) Severe sepsis Code(s): A41.9 - SEPSIS, UNSPECIFIED ORGANISM; R65.20 - SEVERE SEPSIS WITHOUT SEPTIC SHOCK Status: Acute (2) Pneumonia Code(s): J18.9 - PNEUMONIA, UNSPECIFIED ORGANISM Status: Acute (3) Bacteremia due to Streptococcus pneumoniae Code(s): R78.81 - BACTEREMIA Status: Acute (4) Streptococcus pneumoniae pneumonia Code(s): J13 - PNEUMONIA DUE TO STREPTOCOCCUS PNEUMONIAE Status: Acute (5) DKA (diabetic ketoacidoses) Code(s): E11.10 - TYPE 2 DIABETES MELLITUS WITH KETOACIDOSIS WITHOUT COMA Status: Acute (6) Metabolic acidosis Code(s): E87.2 - ACIDOSIS Status: Acute (7) Hyperchloremic metabolic acidosis Code(s): E87.2 - ACIDOSIS Status: Acute (8) Acute on chronic anemia Code(s): D64.9 - ANEMIA, UNSPECIFIED Status: Acute (9) Thrombocytopenia Code(s): D69.6 - THROMBOCYTOPENIA, UNSPECIFIED Status: Acute (10) Obesity Code(s): E66.9 - OBESITY, UNSPECIFIED Status: Acute (11) Cognitive impairment Code(s): R41.89 - OTH SYMPTOMS AND SIGNS W COGNITIVE FUNCTIONS AND AWARENESS Status: Acute (12) Acute metabolic encephalopathy Code(s): G93.41 - METABOLIC ENCEPHALOPATHY Status: Acute (13) History of ITP Code(s): Z86.2 - PRSNL HISTORY OF DIS OF THE BLD/BLD-FORM ORG/IMMUN MECHNSM Status: Acute (14) Volume depletion Code(s): E86.9 - VOLUME DEPLETION, UNSPECIFIED Status: Acute (15) TU (acute kidney injury) Code(s): N17.9 - ACUTE KIDNEY FAILURE, UNSPECIFIED Status: Acute (16) CKD (chronic kidney disease) stage 3, GFR 30-59 ml/min Code(s): N18.3 - CHRONIC KIDNEY DISEASE, STAGE 3 (MODERATE) Status: Acute - Plan Continue Insulin therapy Continue antimicrobials. Appreciate Pulmonary and ID inputs. DC IVF. Start lidocaine patch to neck Monitor renal function and electrolytes and correct as needed. Start incentive spirometry and mucolytic
[2019-01-29] MEDS: Insulin Glargine 45 UNITS in Pre-Filled Syringe 1 EACH SC SCH (20:24)
[2019-01-29] MEDS: traMADol HCl 50 MG TAB PO PRN (22:36)
[2019-01-29] MEDS: Lidocaine Patch Removal 1 EACH TOP SCH (22:38)
--- NOTE | 2019-01-29 23:16 | CT ---
CT BRAIN NONCONTRAST: DATE: 01/29/2019 HISTORY: 28-year-old female with diplopia and headache. COMPARISON: 05/27/2018 FINDINGS: There is no evidence of acute intra-axial or extra-axial hemorrhage. There is no midline shift or any other mass effect. There is no extra-axial fluid collection. There is no evidence of obstructive hydrocephalus. Calvarium is intact. Significant partial opacification of bilateral maxillary sinuses, left greater than right. Severe partial opacification of bilateral ethmoid air cells, worse than on 05/27/2018. New finding of mild to moderate mucosal thickening throughout bilateral sphenoid air ce lls. New finding of secretions in the bilateral sphenoid air cells. IMPRESSION: 1. No acute intracranial findings. 2. Interval worsening of diffuse paranasal sinus mucosal disease.
[2019-01-30] MEDS: traMADol HCl 50 MG TAB PO PRN ×3 (04:38→20:11)
[2019-01-30] MEDS: HumaLOG 300 UNITS/3 ML VIAL SC PRN ×3 (04:42→17:32)
[2019-01-30 05:47] LABS: Albumin 2.4 g/dL (3.5-5.0); Anion Gap 10 mmol/L (10-20); BUN (Urea Nitrogen) 30 mg/dL (7.0-18.7); BUN/Creatinine Ratio 20.13; Calc. Creatinine Clearance 87 mL/min (70-130); Calcium 8.4 mg/dL (7.8-10.44); Carbon Dioxide 22 mmol/L (22-29); Chloride 111 mmol/L (98-107); Estimated GFR-MDRD 41; Glucose 190 mg/dL (70-105); Phosphorus 3.7 mg/dL (2.3-4.7); Potassium 3.6 mmol/L (3.5-5.1); Sodium 139 mmol/L (136-145)
[2019-01-30 05:55] LABS: Band 1 % (5-11); Hypochromia SLIGHT = 6-15 cells (100X) (0-5/hpf); Lymphocytes 8 % (21-51); MDiff Complete? YES; Mean Corpuscular HGB CONC 32.3 g/dL (32.0-36.0); Mean Corpuscular Hemoglobin 27.5 pg (27.0-31.0); Mean Corpuscular Volume 85.2 fL (78.0-98.0); Mean Platelet Volume 9.1 fL (7.4-10.4); Monocytes 8 % (0-10); Neutrophil 83 % (42-75); Platelet Count 79 thou/uL (130-400); Platelet Morphology Comment Appears Decreased; Red Blood Cell (RBC) Count 2.92 mill/uL (4.20-5.40); White Blood Cell (WBC) Count 4.8 thou/uL (4.8-10.8)
[2019-01-30] MEDS: Acyclovir 400 mg Tablet PO SCH ×3 (08:36→20:11)
[2019-01-30] MEDS: Acetaminophen 325 MG TAB PO PRN ×2 (08:37→17:31)
[2019-01-30] MEDS: guaiFENesin ER 600 MG TAB PO SCH ×2 (08:37→20:11)
[2019-01-30] MEDS: cefTRIAXone\\ROCEPHIN 2 GM in Sodium Chloride 0.9% 100 ML IVPB SCH (09:30)
--- NOTE | 2019-01-30 09:42 | RAD ---
TWO VIEW CHEST: HISTORY: Pneumonia followup. COMPARISON: 01/26/2019. FINDINGS: Dense confluent infiltrate in the left upper mid lung field again noted, not significantly changed fr om 01/26/2019. The right lung remains clear and unchanged. IMPRESSION: Persistent confluent infiltrate in the left mid and upper lung. POS: OFF
[2019-01-30] MEDS: Insulin Glargine 50 UNITS in Pre-Filled Syringe 1 EACH SC SCH ×2 (10:50→20:12)
[2019-01-30] MEDS: Lidocaine 5% Patch TD SCH (11:23)
[2019-01-30] MEDS ORDERED: Melatonin 3 MG TAB PO PRN (12:11)
--- NOTE | 2019-01-30 12:45 | RAD ---
RIGHT SHOULDER 3 VIEWS: HISTORY: Shoulder pain. FINDINGS/IMPRESSION: No fracture. AC joint is normally aligned. Finding in the subacromial space suggests mild subluxati on, although no evidence of dislocation. POS: OFF
--- NOTE | 2019-01-30 14:22 | PDOC.HOSPP ---
- Subjective Encounter Date: 01/30/19 Encounter Time: 10:20 Subjective: 28 y/o female with DM, cognitive impairment, ITP and others admitted with worsening cough, SOB and fever associated with hyperglycemia and multiple electrolyte and acid/base derangements. Found to have sepsis with possible DIC, and DKA from pneumonia. Started on IVF, broad spectrum antimicrobials,and oxygen supplementation with improvement. Complaining of doble vision and worsening R shoulder pain. Still with neck pain. CT Head last night for double vision was unremarkable - Objective Vital Signs & Weight: Vital Signs (12 hours) Temp Pulse Resp BP BP Pulse Ox 01/30/19 11:15 98.3 F 124 H 18 143/73 H 92 L 01/30/19 10:45 120 H 20 92 L 01/30/19 08:00 98.3 F 119 H 90 H 146/64 H 90 L 01/30/19 06:52 90 L 01/30/19 06:50 118 H 16 90 L 01/30/19 04:28 98.1 F 108 H 22 H 156/75 H 95 Weight Weight 217 lb 9.6 oz Most Recent Monitor Data Heart Rate from ECG 116 NIBP 144/110 NIBP BP-Mean 121 Respiration from ECG 25 SpO2 94 I&O: 01/29/19 01/30/19 01/31/19 06:59 06:59 06:59 Intake Total 3085 Output Total 550 Balance 2535 Result Diagrams: 01/30/19 04:53 01/30/19 04:53 Additional Labs: Accuchecks 01/30/19 01/30/19 01/29/19 11:17 04:31 22:16 POC Glucose 187 H 197 H 179 H 01/29/19 01/29/19 19:32 16:25 POC Glucose 140 H 139 H Hospitalist ROS - Medication Medications: Active Medications Generic Name Dose Route Start Last Admin Trade Name Freq PRN Reason Stop Dose Admin Acetaminophen 650 mg 01/26/19 09:40 01/30/19 08:37 Tylenol PO 650 mg Q4H PRN Administration Headache/Fever/Mild Pain (1-3) Acyclovir 400 mg 01/28/19 15:00 01/30/19 08:36 Zovirax PO 01/31/19 15:01 400 mg TID KHAI Administration Albuterol/Ipratropium 3 ml 01/26/19 14:30 01/30/19 10:45 Duoneb NEB 3 ml [id number] KHAI Administration Guaifenesin 600 mg 01/28/19 09:00 01/30/19 08:37 Mucinex PO 600 mg Q12HR KHAI Administration Guaifenesin 200 mg 01/27/19 23:25 01/28/19 00:02 Robitussin Sf PO 200 mg Q4H PRN Administration Cough Ceftriaxone Sodium 2 gm/ 100 mls @ 200 mls/hr 01/27/19 10:00 01/30/19 09:30 Sodium Chloride IVPB 100 mls Q24HR KHAI Administration Insulin Glargine 50 units/ 0.5 mls @ 0 mls/hr 01/30/19 09:00 01/30/19 10:50 Miscellaneous Medication SC Not Given BID [facility] Insulin Human Lispro 0 units 01/27/19 08:15 01/30/19 12:32 Humalog SC 3 unit .AGGRESSIVE SLIDING PRN Administration Aggressive Correctional Scale Lidocaine 1 patch 01/29/19 11:00 01/30/19 11:23 Lidoderm 5% Patch TD 1 patch 1100 KHAI Administration Miscellaneous Medication 1 each 01/29/19 23:00 01/29/19 22:38 Lidocaine Patch Removal TOP 1 each 2300 KHAI Administration Ondansetron HCl 4 mg 01/26/19 09:40 01/28/19 00:13 Zofran IVP 4 mg Q6H PRN Administration Nausea/Vomiting Sodium Chloride 10 ml 01/26/19 21:00 01/30/19 08:40 Flush - Normal Saline IVF Not Given Q12HR [facility] Tramadol HCl 50 mg 01/30/19 12:11 01/30/19 12:33 Ultram PO 50 mg Q6H PRN Administration Moderate Pain (4-6) - Exam General Appearance: awake alert General - other findings: obese Eye: anicteric sclera ENT: normocephalic atraumatic, moist mucosa Neck: symmetric, no JVD Neck - other findings: posterior neck tenderness Heart: RRR Respiratory: no wheezes, no ronchi, normal chest expansion Respiratory - other findings: fair air entry with crackles on the left Gastrointestinal: soft, non-tender, non-distended, normal bowel sounds Gastrointestinal - other findings: obese Extremities - other findings: trace bilateral leg edema Neurological: cranial nerve grossly intact, no focal deficits Neurological - other findings: cranial nerves are grossly normal. Musculoskeletal - other findings: Right shoulder tenderness and decreased ROM Psychiatric: A&O x 3 Hosp A/P (1) Severe sepsis Code(s): A41.9 - SEPSIS, UNSPECIFIED ORGANISM; R65.20 - SEVERE SEPSIS WITHOUT SEPTIC SHOCK Status: Acute (2) Pneumonia Code(s): J18.9 - PNEUMONIA, UNSPECIFIED ORGANISM Status: Acute (3) Bacteremia due to Streptococcus pneumoniae Code(s): R78.81 - BACTEREMIA Status: Acute (4) Streptococcus pneumoniae pneumonia Code(s): J13 - PNEUMONIA DUE TO STREPTOCOCCUS PNEUMONIAE Status: Acute (5) DKA (diabetic ketoacidoses) Code(s): E11.10 - TYPE 2 DIABETES MELLITUS WITH KETOACIDOSIS WITHOUT COMA Status: Acute (6) Metabolic acidosis Code(s): E87.2 - ACIDOSIS Status: Acute (7) Hyperchloremic metabolic acidosis Code(s): E87.2 - ACIDOSIS Status: Acute (8) Acute on chronic anemia Code(s): D64.9 - ANEMIA, UNSPECIFIED Status: Acute (9) Thrombocytopenia Code(s): D69.6 - THROMBOCYTOPENIA, UNSPECIFIED Status: Acute (10) Obesity Code(s): E66.9 - OBESITY, UNSPECIFIED Status: Acute (11) Cognitive impairment Code(s): R41.89 - OT SYMPTOMS AND SIGNS W COGNITIVE FUNCTIONS AND AWARENESS Status: Acute (12) Acute metabolic encephalopathy Code(s): G93.41 - METABOLIC ENCEPHALOPATHY Status: Acute (13) History of ITP Code(s): Z86.2 - PRSNL HISTORY OF DIS OF THE BLD/BLD-FORM ORG/IMMUN MECHNSM Status: Acute (14) Volume depletion Code(s): E86.9 - VOLUME DEPLETION, UNSPECIFIED Status: Acute (15) TU (acute kidney injury) Code(s): N17.9 - ACUTE KIDNEY FAILURE, UNSPECIFIED Status: Acute (16) CKD (chronic kidney disease) stage 3, GFR 30-59 ml/min Code(s): N18.3 - CHRONIC KIDNEY DISEASE, STAGE 3 (MODERATE) Status: Acute (17) Right shoulder pain Code(s): M25.511 - PAIN IN RIGHT SHOULDER Status: Acute (18) Diplopia Code(s): H53.2 - DIPLOPIA Status: Acute - Plan Continue Insulin therapy. Increase lantus to 50 bid. Continue antimicrobial Get MRI brain and R shoulder X ray. Increase activity Analgesic as needed Monitor renal function and electrolytes and correct as needed. Continue incentive spirometry and mucolytic
[2019-01-30] MEDS: Lidocaine Patch Removal 1 EACH TOP SCH (23:10)
[2019-01-31] MEDS: Acetaminophen 325 MG TAB PO PRN ×5 (00:16→20:57)
[2019-01-31 05:47] LABS: Anion Gap 15 mmol/L (10-20); BUN (Urea Nitrogen) 22 mg/dL (7.0-18.7); Calc. Creatinine Clearance 99 mL/min (70-130); Calcium 8.5 mg/dL (7.8-10.44); Carbon Dioxide 18 mmol/L (22-29); Chloride 110 mmol/L (98-107); Estimated GFR-MDRD 48; Glucose 267 mg/dL (70-105); Magnesium 1.6 mg/dL (1.6-2.6); Potassium 4.7 mmol/L (3.5-5.1); Sodium 138 mmol/L (136-145)
[2019-01-31 05:50] LABS: Band 2 % (5-11); Hemoglobin 8.6 g/dL (12.0-16.0); Lymphocytes 18 % (21-51); MDiff Complete? YES; Mean Corpuscular HGB CONC 32.6 g/dL (32.0-36.0); Mean Corpuscular Hemoglobin 27.7 pg (27.0-31.0); Mean Corpuscular Volume 84.8 fL (78.0-98.0); Metamyelocyte 2 % (0-0); Monocytes 11 % (0-10); Neutrophil 67 % (42-75); Platelet Count 91 thou/uL (130-400); Platelet Morphology Comment Appears Decreased; RBC Distribution Width 14.2 % (11.5-14.5); RBC Morphology Normal; Red Blood Cell (RBC) Count 3.12 mill/uL (4.20-5.40); White Blood Cell (WBC) Count 5.4 thou/uL (4.8-10.8)
[2019-01-31] MEDS: HumaLOG 300 UNITS/3 ML VIAL SC PRN (05:50)
[2019-01-31] MEDS: traMADol HCl 50 MG TAB PO PRN ×4 (05:53→23:54)
[2019-01-31] MEDS: guaiFENesin ER 600 MG TAB PO SCH ×2 (08:14→20:58)
[2019-01-31] MEDS: Acyclovir 400 mg Tablet PO SCH ×3 (08:14→20:58)
[2019-01-31] MEDS: Ondansetron PF 4 MG/2 ML Vial IVP PRN ×2 (08:14→18:52)
[2019-01-31] MEDS: Insulin Glargine 50 UNITS in Pre-Filled Syringe 1 EACH SC SCH ×2 (08:15→21:42)
[2019-01-31] MEDS: HumaLOG 300 UNITS/3 ML VIAL SC SCH ×3 (09:59→16:50)
[2019-01-31] MEDS: cefTRIAXone\\ROCEPHIN 2 GM in Sodium Chloride 0.9% 100 ML IVPB SCH (10:06)
[2019-01-31] MEDS: Lidocaine 5% Patch TD SCH (10:06)
[2019-01-31 11:45] LABS: BHCG - Serum Negative (NEGATIVE); Pregs Control Background? CLEAR/WHITE (CLR/WHITE); Pregs Control Bar Appear? YES (CONTROL BAR)
--- NOTE | 2019-01-31 12:30 | PDOC.HOSPP ---
- Subjective Encounter Date: 01/31/19 Encounter Time: : Subjective: 28 y/o female with DM, cognitive impairment, ITP and others admitted with worsening cough, SOB and fever associated with hyperglycemia and multiple electrolyte and acid/base derangements. Found to have sepsis with possible DIC, and DKA from pneumonia. Started on IVF, broad spectrum antimicrobials,and oxygen supplementation with improvement. Double vision and R shoulder pain have improved. Now complaining of anterior neck swelling and tenderness. Still with neck pain. - Objective Vital Signs & Weight: Vital Signs (12 hours) Temp Pulse Resp BP BP Pulse Ox 01/31/19 10:50 111 H 20 96 01/31/19 07:48 97.9 F 123 H 22 H 152/87 H 92 L 01/31/19 07:03 93 L 01/31/19 07:01 113 H 30 H 93 L 01/31/19 04:00 98.1 F 108 H 18 164/98 H 94 L 01/31/19 02:16 114 H 16 Weight Weight 217 lb 9.6 oz Most Recent Monitor Data Heart Rate from ECG 116 NIBP 144/110 NIBP BP-Mean 121 Respiration from ECG 25 SpO2 94 Result Diagrams: 01/31/19 05:15 01/31/19 05:15 Additional Labs: Accuchecks 01/31/19 01/30/19 01/30/19 04:20 20:09 16:56 POC Glucose 244 H 270 H 250 H Hospitalist ROS - Medication Medications: Active Medications Generic Name Dose Route Start Last Admin Trade Name Freq PRN Reason Stop Dose Admin Acetaminophen 650 mg 01/26/19 09:40 01/31/19 08:14 Tylenol PO 650 mg Q4H PRN Administration Headache/Fever/Mild Pain (1-3) Acyclovir 400 mg 01/28/19 15:00 01/31/19 08:14 Zovirax PO 01/31/19 15:01 400 mg TID KHAI Administration Albuterol/Ipratropium 3 ml 01/26/19 14:30 01/31/19 10:50 Duoneb NEB 3 ml [id number] KHAI Administration Guaifenesin 600 mg 01/28/19 09:00 01/31/19 08:14 Mucinex PO 600 mg Q12HR KHAI Administration Guaifenesin 200 mg 01/27/19 23:25 01/28/19 00:02 Robitussin Sf PO 200 mg Q4H PRN Administration Cough Ceftriaxone Sodium 2 gm/ 100 mls @ 200 mls/hr 01/27/19 10:00 01/31/19 10:06 Sodium Chloride IVPB 100 mls Q24HR KHAI Administration Insulin Glargine 50 units/ 0.5 mls @ 0 mls/hr 01/30/19 09:00 01/31/19 08:15 Miscellaneous Medication SC 0.5 mls BID KHAI Administration Insulin Human Lispro 0 units 01/27/19 08:15 01/31/19 05:50 Humalog SC 6 unit .AGGRESSIVE SLIDING PRN Administration Aggressive Correctional Scale Insulin Human Lispro 5 units 01/31/19 08:00 01/31/19 09:59 Humalog SC Not Given TID-WM KHAI Lidocaine 1 patch 01/29/19 11:00 01/31/19 10:06 Lidoderm 5% Patch TD 1 patch 1100 KHAI Administration Miscellaneous Medication 1 each 01/29/19 23:00 01/30/19 23:10 Lidocaine Patch Removal TOP Not Given 2300 KHAI Ondansetron HCl 4 mg 01/26/19 09:40 01/31/19 08:14 Zofran IVP 4 mg Q6H PRN Administration Nausea/Vomiting Sodium Chloride 10 ml 01/26/19 21:00 01/31/19 08:15 Flush - Normal Saline IVF 10 ml Q12HR KHAI Administration Tramadol HCl 50 mg 01/30/19 12:11 01/31/19 11:40 Ultram PO 50 mg Q6H PRN Administration Moderate Pain (4-6) - Exam General Appearance: awake alert General - other findings: obese Eye: anicteric sclera ENT: normocephalic atraumatic, moist mucosa Neck - other findings: anterior neck fullness and tender. Heart: RRR Heart - other findings: tachycardic Respiratory - other findings: fair air entry with crackles left hemithorax. Gastrointestinal: soft, non-tender, non-distended, normal bowel sounds Gastrointestinal - other findings: obese Extremities: no cyanosis, 1+ LE edema Neurological: cranial nerve grossly intact, no focal deficits Musculoskeletal: generalized weakness Psychiatric: A&O x 3 Hosp A/P (1) Severe sepsis Code(s): A41.9 - SEPSIS, UNSPECIFIED ORGANISM; R65.20 - SEVERE SEPSIS WITHOUT SEPTIC SHOCK Status: Acute (2) Pneumonia Code(s): J18.9 - PNEUMONIA, UNSPECIFIED ORGANISM Status: Acute (3) Bacteremia due to Streptococcus pneumoniae Code(s): R78.81 - BACTEREMIA Status: Acute (4) Streptococcus pneumoniae pneumonia Code(s): J13 - PNEUMONIA DUE TO STREPTOCOCCUS PNEUMONIAE Status: Acute (5) DKA (diabetic ketoacidoses) Code(s): E11.10 - TYPE 2 DIABETES MELLITUS WITH KETOACIDOSIS WITHOUT COMA Status: Acute (6) Metabolic acidosis Code(s): E87.2 - ACIDOSIS Status: Acute (7) Hyperchloremic metabolic acidosis Code(s): E87.2 - ACIDOSIS Status: Acute (8) Acute on chronic anemia Code(s): D64.9 - ANEMIA, UNSPECIFIED Status: Acute (9) Thrombocytopenia Code(s): D69.6 - THROMBOCYTOPENIA, UNSPECIFIED Status: Acute (10) Obesity Code(s): E66.9 - OBESITY, UNSPECIFIED Status: Acute (11) Cognitive impairment Code(s): R41.89 - OT SYMPTOMS AND SIGNS W COGNITIVE FUNCTIONS AND AWARENESS Status: Acute (12) Acute metabolic encephalopathy Code(s): G93.41 - METABOLIC ENCEPHALOPATHY Status: Acute (13) History of ITP Code(s): Z86.2 - PRSNL HISTORY OF DIS OF THE BLD/BLD-FORM ORG/IMMUN MECHNSM Status: Acute (14) Volume depletion Code(s): E86.9 - VOLUME DEPLETION, UNSPECIFIED Status: Acute (15) TU (acute kidney injury) Code(s): N17.9 - ACUTE KIDNEY FAILURE, UNSPECIFIED Status: Acute (16) CKD (chronic kidney disease) stage 3, GFR 30-59 ml/min Code(s): N18.3 - CHRONIC KIDNEY DISEASE, STAGE 3 (MODERATE) Status: Acute (17) Right shoulder pain Code(s): M25.511 - PAIN IN RIGHT SHOULDER Status: Acute (18) Diplopia Code(s): H53.2 - DIPLOPIA Status: Acute (19) Neck swelling Code(s): R22.1 - LOCALIZED SWELLING, MASS AND LUMP, NECK Status: Acute (20) Acute maxillary sinusitis Code(s): J01.00 - ACUTE MAXILLARY SINUSITIS, UNSPECIFIED Status: Acute - Plan Continue Insulin therapy. Start humalog 5 units with meal + sliding scale. Continue lantus [address] soft tissue neck. Continue antimicrobial DC MRI brain as diplopia has improved. Increase activity Analgesic as needed Monitor renal function and electrolytes and correct as needed. Continue incentive spirometry and mucolytic
--- NOTE | 2019-01-31 13:55 | CT ---
CT NECK WITH CONTRAST: INDICATION: Tenderness and fullness anterior neck. COMPARISON: Comparison is made to a prior CT neck performed 04/16/2016. FINDINGS: The parotid glands appear symmetric and stable from prior exam. Numerous calcifications in the right parotid gland were noted previously and are unchanged. Submandibular glands are symmetric. Thyroid unremarkable. There is a calcified nodule in the right lobe of the thyroid which was present previo usly. Nasopharynx unremarkable. Oropharynx and hypopharynx unremarkable. Larynx unremarkable. Parapharyngeal space and retropharyngeal space unremarkable. Nitrate Operator space unremarkable. Diffuse mucosal edema in the left maxillary antrum. Mucosal opacification of the left anterior ethmo id air cells. There is periapical lucency surrounding the roots of the 1st mandibular molar on the l eft. This was noted previously. Small nonspecific submandibular lymph nodes. There are nonspecific cervical chain lymph nodes bilaterally. The jugulodigastric level II node on t he right measures up to 1.5 cm. There are numerous level II, level III, and level IV nodes which are all nonspecific but are more numerous than normal. However, these numerous lymph nodes do not appea r significantly changed when compared to 2017 exam. Images through the lung apices showed dense consolidation in the left upper lobe posteriorly concerni ng for dense pneumonia. See the PA and lateral chest exam of 01/30/2019 described persistent left lung infiltrates. In the subcutaneous tissues of the lower neck and upper chest, there is mild haziness and prominence at the sternoclavicular junction on the right. This is nonspecific but could represent edema. Recom mend clinical correlation regarding tenderness at this site. This is a new finding when compared to 2017. IMPRESSION: 1. Nonspecific cervical chain adenopathy with numerous lymph nodes at all levels which appear simila r to the prior exam of 2017. 2. Abnormal edema and density in the subcutaneous tissues of the lower neck and upper chest on the r ight at the sternoclavicular region. This could represent injury. Recommend clinical correlation. 3. Dense consolidation in the left upper lobe posteriorly is seen on images through the apices. Rec ent chest film described persistent left lung infiltrates. 4. Persistent lucency surrounding the roots of left mandibular molar concerning for periapical absce ss. 5. Mucosal opacification of the left maxillary sinus. 6. There is a calcified nodule in the right lobe of the thyroid which appears stable. POS: OFF
[2019-01-31] MEDS: Lidocaine Patch Removal 1 EACH TOP SCH (22:56)
[2019-02-01] MEDS: Acetaminophen 325 MG TAB PO PRN ×4 (02:59→19:47)
[2019-02-01] MEDS: HumaLOG 300 UNITS/3 ML VIAL SC PRN ×2 (05:25→17:30)
[2019-02-01] MEDS: traMADol HCl 50 MG TAB PO PRN ×3 (05:59→23:43)
[2019-02-01 06:23] LABS: Albumin 2.5 g/dL (3.5-5.0); Anion Gap 13 mmol/L (10-20); BUN (Urea Nitrogen) 17 mg/dL (7.0-18.7); BUN/Creatinine Ratio 13.82; Calc. Creatinine Clearance 105 mL/min (70-130); Calcium 8.8 mg/dL (7.8-10.44); Carbon Dioxide 21 mmol/L (22-29); Chloride 108 mmol/L (98-107); Estimated GFR-MDRD 52; Glucose 204 mg/dL (70-105); Magnesium 1.5 mg/dL (1.6-2.6); Phosphorus 3.7 mg/dL (2.3-4.7); Potassium 4.4 mmol/L (3.5-5.1); Sodium 138 mmol/L (136-145)
[2019-02-01] MEDS ORDERED: Magnesium Sulfate 4 GM in Sodium Chloride 0.9% 250 ML 250 ML IVPB SCH (07:45)
[2019-02-01] MEDS: guaiFENesin ER 600 MG TAB PO SCH ×2 (08:29→21:11)
[2019-02-01] MEDS: Acyclovir 400 mg Tablet PO SCH ×3 (08:29→21:11)
[2019-02-01] MEDS: metroNIDAZOLE 500 MG TAB PO SCH ×3 (08:29→21:11)
--- NOTE | 2019-02-01 10:13 | CON ---
DATE OF CONSULTATION: 02/01/2019 REQUESTING PHYSICIAN: [facility]. CONSULTING PHYSICIAN: Dr. Adam Crowe. REASON FOR CONSULTATION: Right neck and shoulder pain. HISTORY OF PRESENT ILLNESS: This is a 28-year-old female, who was admitted to the hospital on January 26, 2019, for sepsis and DKA. Her source was found to be in the lungs. We have been consulted as the patient started to develop some right sided neck and shoulder pain. Currently at bedside, most of the history is obtained from the mother at bedside as the patient is a poor historian. This pain apparently started after hospital admission. No history of injury according to the patient. She reports pain in the soft tissues of the right side of the neck. This seems to radiate down to the shoulder and down to the back. Mild discomfort associated with movement of the right shoulder. She is right-hand dominant. No history of previous neck or shoulder pain or neck or shoulder surgeries. No numbness or tingling down into the right hand. PAST MEDICAL HISTORY: Significant for; 1. Insulin-dependent diabetes. 2. Pancytopenia. 3. Splenomegaly. 4. Chronic kidney disease. 5. ITP. 6. History of autoimmune hemolytic anemia in 2011. 7. Mild mental retardation. 8. Morbid obesity. 9. Left-sided hydronephrosis. PAST SURGICAL HISTORY: Significant for dental surgery for abscess. ALLERGIES: INCLUDE BACTRIM, KEFLEX, LISINOPRIL, AND LOSARTAN. FAMILY HISTORY: Reviewed and noncontributory. SOCIAL HISTORY: The patient lives with her mother. No alcohol, tobacco, or illicit drug use. REVIEW OF SYSTEMS: A 10-point review of systems conducted and otherwise negative except for noted above. PHYSICAL EXAMINATION: VITAL SIGNS: Show current vital signs including temperature of 97.5, pulse of 103, respiratory rate of 20, O2 saturation of 92% on room air, and blood pressure 165/86. GENERAL: The patient is awake and alert. She is sitting up in bed right now as the nurses are in the room, starting a new IV medication. Her mom is also present in the room. She is in no apparent distress. She is sitting somewhat sideways in the bed. She states she just got up to go to the bathroom and returned and did not quite get all the way back into bed. She is in no apparent distress. HEENT: Head is normocephalic and atraumatic. NECK: Shows some right anterior fullness on the right side. There is a palpable subcutaneous, was felt to be possibly a lymph node or mass on the right side. This is tender to palpation. There is no erythema overlying this area. This was very tender to palpation and was unable to certain whether this was mobile or nonmobile. No tenderness to palpation along the posterior neck. No bony tenderness to palpation along the posterior spine. No tenderness to palpation along the shoulder. No rashes or lesions noted. Trachea is midline. Breathing is nonlabored. EXTREMITIES: The right upper extremity was evaluated. There is no soft tissue swelling noted. No rashes or lesions noted to the right shoulder or right arm. Evaluation of range of motion shows that the patient is able to range her right shoulder including forward flexion, internal and external rotation of the shoulder, as well as abduction and abduction. She does wince in discomfort with this active range of motion and states that this pain hurts her neck. Distal radial pulse palpable. Full range of motion in the elbow and the wrist. Moving Picture Operator strength is 5/5. Distal neurovascular status intact in the right upper extremity. Remainder of extremities show no signs of injury or acute deformity. LABORATORY AND RADIOGRAPHIC DATA: Reviewed today shows a CBC including a white blood cell count of 4.8 today. This is down from 01/28/2019 which was 6.5. Hemoglobin and hematocrit today are 8.0 and 24.8 respectively, platelet count of 79. RADIOGRAPHIC IMAGING: Reviewed including a soft tissue neck CT done yesterday on 01/31/2019 shows evidence of nonspecific cervical chain adenopathy with numerous lymph nodes at all levels, which appears similar to the prior exam in 2017 and also shows abnormal edema and density in the subcutaneous tissues of the lower neck and upper chest on the right at the sternoclavicular region. Shoulder x-rays showed no acute findings. Chest x-ray shows evidence of lobar pneumonia on the left. IMPRESSION: Soft tissue mass and swelling in the anterior right neck. The patient's orthopedic exam appears benign. No evidence of acute injury, fracture, dislocation, or concern for septic joint. This neck and shoulder pain appears to originate in the neck and possibly from a lymph node according to the recent CT scan of her neck. At this time, we will sign off. Please re-consult us for further orthopedic care. Thank you for this consultation. Job ID: [id number]
[2019-02-01] MEDS: HumaLOG 300 UNITS/3 ML VIAL SC SCH ×3 (10:22→17:29)
[2019-02-01] MEDS: Insulin Glargine 50 UNITS in Pre-Filled Syringe 1 EACH SC SCH ×2 (10:23→21:11)
[2019-02-01] MEDS: cefTRIAXone\\ROCEPHIN 2 GM in Sodium Chloride 0.9% 100 ML IVPB SCH (12:47)
--- NOTE | 2019-02-01 12:50 | PDOC.HOSPP ---
- Subjective Encounter Date: 02/01/19 Encounter Time: 11:27 Subjective: 28 y/o female with DM, cognitive impairment, ITP and others admitted with worsening cough, SOB and fever associated with hyperglycemia and multiple electrolyte and acid/base derangements. Found to have sepsis with possible DIC, and DKA from pneumonia. Started on IVF, broad spectrum antimicrobials,and oxygen supplementation with improvement. Still having double vision, R shoulder pain and neck pain seem worse today. Seen by ortho who signed off due no acute shoulder orthopedic pathology. Still complaining or poor appetite. Mother is very concern about her not feeling well. Also semm to get SOB with minimal exertion. - Objective Vital Signs & Weight: Vital Signs (12 hours) Temp Pulse Resp BP BP Pulse Ox 02/01/19 11:12 138/79 02/01/19 11:03 98.1 F 125 H 24 H 91 L 02/01/19 11:00 98.1 F 125 H 24 H 138/79 91 L 02/01/19 08:29 92 L 02/01/19 07:46 97.5 F L 103 H 20 165/86 H 92 L 02/01/19 07:05 110 H 16 91 L 02/01/19 03:59 98.4 F 111 H 18 134/82 91 L 02/01/19 02:05 114 H 20 93 L 02/01/19 01:34 112 H 15 93 L Weight Weight 217 lb 9.6 oz Most Recent Monitor Data Heart Rate from ECG 116 NIBP 144/110 NIBP BP-Mean 121 Respiration from ECG 25 SpO2 94 I&O: 01/31/19 02/01/19 02/02/19 06:59 06:59 06:59 Intake Total 900 Balance 900 Result Diagrams: 01/31/19 05:15 02/01/19 05:51 Additional Labs: Accuchecks 02/01/19 02/01/19 02/01/19 11:34 10:23 08:46 POC Glucose 133 H 86 82 02/01/19 01/31/19 01/31/19 04:01 21:38 19:42 POC Glucose 244 H 324 H 137 H 01/31/19 16:23 POC Glucose 153 H Hospitalist ROS - Medication Medications: Active Medications Generic Name Dose Route Start Last Admin Trade Name Freq PRN Reason Stop Dose Admin Acetaminophen 650 mg 01/26/19 09:40 02/01/19 08:29 Tylenol PO 650 mg Q4H PRN Administration Headache/Fever/Mild Pain (1-3) Acyclovir 400 mg 01/31/19 21:00 02/01/19 08:29 Zovirax PO 02/01/19 21:01 400 mg TID KHAI Administration Albuterol/Ipratropium 3 ml 01/26/19 14:30 02/01/19 10:23 Duoneb NEB Not Given [id number] KHAI Guaifenesin 600 mg 01/28/19 09:00 02/01/19 08:29 Mucinex PO 600 mg Q12HR KHAI Administration Guaifenesin 200 mg 01/27/19 23:25 01/28/19 00:02 Robitussin Sf PO 200 mg Q4H PRN Administration Cough Insulin Glargine 50 units/ 0.5 mls @ 0 mls/hr 01/30/19 09:00 02/01/19 10:23 Miscellaneous Medication SC Not Given BID KHAI Insulin Human Lispro 0 units 01/27/19 08:15 02/01/19 05:25 Humalog SC 6 unit .AGGRESSIVE SLIDING PRN Administration Aggressive Correctional Scale Insulin Human Lispro 5 units 01/31/19 08:00 02/01/19 10:22 Humalog SC Not Given TID-WM KHAI Lidocaine 1 patch 01/29/19 11:00 01/31/19 10:06 Lidoderm 5% Patch TD 1 patch 1100 KHAI Administration Metronidazole 500 mg 02/01/19 09:00 02/01/19 08:29 Flagyl PO 500 mg TID KHAI Administration Miscellaneous Medication 1 each 01/29/19 23:00 01/31/19 22:56 Lidocaine Patch Removal TOP Not Given 2300 [facility] Ondansetron HCl 4 mg 01/26/19 09:40 01/31/19 18:52 Zofran IVP 4 mg Q6H PRN Administration Nausea/Vomiting Sodium Chloride 10 ml 01/26/19 21:00 02/01/19 08:31 Flush - Normal Saline IVF 10 ml Q12HR KHAI Administration Tramadol HCl 50 mg 01/30/19 12:11 02/01/19 05:59 Ultram PO 50 mg Q6H PRN Administration Moderate Pain (4-6) - Exam General Appearance: awake alert General - other findings: obese Eye: anicteric sclera ENT: normocephalic atraumatic Neck: symmetric, no JVD Neck - other findings: anterior fullness and posterior tenderness noted Heart: RRR Heart - other findings: tachycardic Respiratory - other findings: Crackles left hemithorax noted Gastrointestinal: soft, non-distended, normal bowel sounds Extremities: no cyanosis, 1+ LE edema Neurological: cranial nerve grossly intact, no focal deficits Psychiatric: A&O x 3 Hosp A/P (1) Severe sepsis Code(s): A41.9 - SEPSIS, UNSPECIFIED ORGANISM; R65.20 - SEVERE SEPSIS WITHOUT SEPTIC SHOCK Status: Acute (2) Pneumonia Code(s): J18.9 - PNEUMONIA, UNSPECIFIED ORGANISM Status: Acute (3) Bacteremia due to Streptococcus pneumoniae Code(s): R78.81 - BACTEREMIA Status: Acute (4) Streptococcus pneumoniae pneumonia Code(s): J13 - PNEUMONIA DUE TO STREPTOCOCCUS PNEUMONIAE Status: Acute (5) DKA (diabetic ketoacidoses) Code(s): E11.10 - TYPE 2 DIABETES MELLITUS WITH KETOACIDOSIS WITHOUT COMA Status: Acute (6) Metabolic acidosis Code(s): E87.2 - ACIDOSIS Status: Acute (7) Hyperchloremic metabolic acidosis Code(s): E87.2 - ACIDOSIS Status: Acute (8) Acute on chronic anemia Code(s): D64.9 - ANEMIA, UNSPECIFIED Status: Acute (9) Thrombocytopenia Code(s): D69.6 - THROMBOCYTOPENIA, UNSPECIFIED Status: Acute (10) Obesity Code(s): E66.9 - OBESITY, UNSPECIFIED Status: Acute (11) Cognitive impairment Code(s): R41.89 - [facility] SYMPTOMS AND SIGNS W COGNITIVE FUNCTIONS AND AWARENESS Status: Acute (12) Acute metabolic encephalopathy Code(s): G93.41 - METABOLIC ENCEPHALOPATHY Status: Acute (13) History of ITP Code(s): Z86.2 - PRSNL HISTORY OF DIS OF THE BLD/BLD-FORM ORG/IMMUN MECHNSM Status: Acute (14) Volume depletion Code(s): E86.9 - VOLUME DEPLETION, UNSPECIFIED Status: Acute (15) TU (acute kidney injury) Code(s): N17.9 - ACUTE KIDNEY FAILURE, UNSPECIFIED Status: Acute (16) CKD (chronic kidney disease) stage 3, GFR 30-59 ml/min Code(s): N18.3 - CHRONIC KIDNEY DISEASE, STAGE 3 (MODERATE) Status: Acute (17) Right shoulder pain Code(s): M25.511 - PAIN IN RIGHT SHOULDER Status: Acute (18) Diplopia Code(s): H53.2 - DIPLOPIA Status: Acute (19) Neck swelling Code(s): R22.1 - LOCALIZED SWELLING, MASS AND LUMP, NECK Status: Acute (20) Acute maxillary sinusitis Code(s): J01.00 - ACUTE MAXILLARY SINUSITIS, UNSPECIFIED Status: Acute (21) Apical abscess Code(s): K04.7 - PERIAPICAL ABSCESS WITHOUT SINUS Status: Acute (22) Neck pain on right side Code(s): M54.2 - CERVICALGIA Status: Acute - Plan DC IV rocephin and start oral levaquin. Added flagyl for presumed apical absess Get repeat blood cultures Continue insulin therapy. Get MRI C spine in evaluation of persisnt neck with radiation to right plans PT/OT eval and treat. Analgesic as needed Monitor renal function and electrolytes and correct as needed.
[2019-02-01] MEDS ORDERED: Lorazepam 2 MG/ML VIAL SLOW IVP SCH (14:00)
[2019-02-01] MEDS: Lidocaine 5% Patch TD SCH (15:40)
[2019-02-01] MEDS: Lidocaine Patch Removal 1 EACH TOP SCH (23:15)
[2019-02-02] MEDS: Acetaminophen 325 MG TAB PO PRN ×6 (01:01→23:43)
[2019-02-02 05:53] LABS: #Eosinphils 0.1 thou/uL (0.0-0.7); #Lymphocytes 0.6 thou/uL (1.20-3.40); #Monocytes 0.4 thou/uL (0.11-0.59); #Neutrophils 2.9 thou/uL (1.40-6.50); %Eosinophils 2.7 % (0.0-10.0); %Lymphocytes 14.7 % (21.0-51.0); %Neutrophils 71.5 % (42.0-75.0); Hemoglobin 7.9 g/dL (12.0-16.0); Mean Corpuscular HGB CONC 32.7 g/dL (32.0-36.0); Mean Corpuscular Hemoglobin 27.7 pg (27.0-31.0); Mean Corpuscular Volume 84.6 fL (78.0-98.0); Mean Platelet Volume 9.2 fL (7.4-10.4); Platelet Count 121 thou/uL (130-400); RBC Distribution Width 13.6 % (11.5-14.5); Red Blood Cell (RBC) Count 2.85 mill/uL (4.20-5.40)
[2019-02-02 06:12] LABS: Anion Gap 9 mmol/L (10-20); BUN (Urea Nitrogen) 16 mg/dL (7.0-18.7); Calc. Creatinine Clearance 108 mL/min (70-130); Calcium 8.8 mg/dL (7.8-10.44); Carbon Dioxide 31 mmol/L (22-29); Chloride 104 mmol/L (98-107); Estimated GFR-MDRD 53; Glucose 100 mg/dL (70-105); Potassium 3.8 mmol/L (3.5-5.1); Sodium 140 mmol/L (136-145)
[2019-02-02] MEDS: Insulin Glargine 50 UNITS in Pre-Filled Syringe 1 EACH SC SCH ×2 (08:13→20:27)
[2019-02-02] MEDS: metroNIDAZOLE 500 MG TAB PO SCH ×3 (08:13→20:25)
[2019-02-02] MEDS: guaiFENesin ER 600 MG TAB PO SCH ×2 (08:14→20:25)
[2019-02-02] MEDS: traMADol HCl 50 MG TAB PO PRN ×2 (08:14→17:05)
[2019-02-02] MEDS: HumaLOG 300 UNITS/3 ML VIAL SC SCH ×3 (08:17→17:06)
[2019-02-02] MEDS: Lidocaine 5% Patch TD SCH (10:44)
[2019-02-02] MEDS: HumaLOG 300 UNITS/3 ML VIAL SC PRN ×2 (12:21→17:06)
--- NOTE | 2019-02-02 13:29 | PDOC.HOSPP ---
- Subjective Encounter Date: 02/02/19 (f/u pneumonia) Encounter Time: 13:27 Subjective: Pt continues to have neck/shoulder pain on the right side. She also c/o diarrhea x 2 today. She denies any n/v or difficulty with breathing. - Objective Vital Signs & Weight: Vital Signs (12 hours) Temp Pulse Resp BP BP Pulse Ox 02/02/19 11:00 98.4 F 129 H 18 120/74 99 02/02/19 10:52 115 H 20 90 L 02/02/19 08:14 95 02/02/19 07:57 127 H 16 94 L 02/02/19 07:52 98.0 F 125 H 16 126/83 95 02/02/19 03:24 99.4 F 123 H 20 136/84 95 02/02/19 02:58 114 H 18 90 L Weight Weight 217 lb 9.6 oz Most Recent Monitor Data Heart Rate from ECG 116 NIBP 144/110 NIBP BP-Mean 121 Respiration from ECG 25 SpO2 94 I&O: 02/01/19 02/02/19 02/03/19 06:59 06:59 06:59 Intake Total 900 760 Balance 900 760 Result Diagrams: 02/02/19 05:23 02/02/19 05:23 Additional Labs: Accuchecks 02/02/19 02/02/19 02/01/19 11:13 05:25 20:55 POC Glucose 182 H 104 187 H 02/01/19 16:45 POC Glucose 249 H Hospitalist ROS - Review of Systems Cardiovascular: reports: edema (legs) - Medication Medications: Active Medications Generic Name Dose Route Start Last Admin Trade Name Freq PRN Reason Stop Dose Admin Acetaminophen 650 mg 01/26/19 09:40 02/02/19 10:44 Tylenol PO 650 mg Q4H PRN Administration Headache/Fever/Mild Pain (1-3) Albuterol/Ipratropium 3 ml 01/26/19 14:30 02/02/19 10:52 Duoneb NEB 3 ml [id number] KHAI Administration Guaifenesin 600 mg 01/28/19 09:00 02/02/19 08:14 Mucinex PO 600 mg Q12HR KHAI Administration Guaifenesin 200 mg 01/27/19 23:25 01/28/19 00:02 Robitussin Sf PO 200 mg Q4H PRN Administration Cough Insulin Glargine 50 units/ 0.5 mls @ 0 mls/hr 01/30/19 09:00 02/02/19 08:13 Miscellaneous Medication SC 0.5 mls BID KHAI Administration Insulin Human Lispro 0 units 01/27/19 08:15 02/02/19 12:21 Humalog SC 3 unit .AGGRESSIVE SLIDING PRN Administration Aggressive Correctional Scale Insulin Human Lispro 5 units 01/31/19 08:00 02/02/19 12:20 Humalog SC 5 unit TID-WM KHAI Administration Levofloxacin 750 mg 02/01/19 14:00 02/01/19 13:17 Levaquin PO 750 mg Q24H KHAI Administration Lidocaine 1 patch 01/29/19 11:00 02/02/19 10:44 Lidoderm 5% Patch TD 1 patch 1100 KHAI Administration Metronidazole 500 mg 02/01/19 09:00 02/02/19 08:13 Flagyl PO 500 mg TID KHAI Administration Miscellaneous Medication 1 each 01/29/19 23:00 02/01/19 23:15 Lidocaine Patch Removal TOP Not Given 2300 [facility] Ondansetron HCl 4 mg 01/26/19 09:40 02/02/19 05:51 Zofran Odt PO 4 mg Q6H PRN Administration Nausea/Vomiting Ondansetron HCl 4 mg 01/26/19 09:40 01/31/19 18:52 Zofran IVP 4 mg Q6H PRN Administration Nausea/Vomiting Sodium Chloride 10 ml 01/26/19 21:00 02/02/19 08:23 Flush - Normal Saline IVF Not Given Q12HR [facility] Tramadol HCl 50 mg 01/30/19 12:11 02/02/19 08:14 Ultram PO 50 mg Q6H PRN Administration Moderate Pain (4-6) - Exam General Appearance: NAD Heart: RRR, no murmur Respiratory: CTAB, no wheezes, no rales, no ronchi Gastrointestinal: soft, non-tender, non-distended, normal bowel sounds Extremities: no cyanosis, no clubbing, no edema Skin - other findings: ecchymosis along upper/inner arm Psychiatric: normal affect Hosp A/P (1) Bacteremia due to Streptococcus pneumoniae Code(s): R78.81 - BACTEREMIA Status: Acute (2) TU (acute kidney injury) Code(s): N17.9 - ACUTE KIDNEY FAILURE, UNSPECIFIED Status: Resolved (3) Cognitive impairment Code(s): R41.89 - OTH SYMPTOMS AND SIGNS W COGNITIVE FUNCTIONS AND AWARENESS Status: Chronic (4) DKA (diabetic ketoacidoses) Code(s): E11.10 - TYPE 2 DIABETES MELLITUS WITH KETOACIDOSIS WITHOUT COMA Status: Resolved (5) History of ITP Code(s): Z86.2 - PRSNL HISTORY OF DIS OF THE BLD/BLD-FORM ORG/IMMUN MECHNSM Status: Chronic (6) Neck pain on right side Code(s): M54.2 - CERVICALGIA Status: Acute (7) Severe sepsis Code(s): A41.9 - SEPSIS, UNSPECIFIED ORGANISM; R65.20 - SEVERE SEPSIS WITHOUT SEPTIC SHOCK Status: Resolved (8) Streptococcus pneumoniae pneumonia Code(s): J13 - PNEUMONIA DUE TO STREPTOCOCCUS PNEUMONIAE Status: Acute Qualifiers: Laterality: left Lung location: upper lobe of lung Qualified Code(s): J13 - Pneumonia due to Streptococcus pneumoniae (9) Asthma Code(s): J45.909 - UNSPECIFIED ASTHMA, UNCOMPLICATED Status: Chronic Qualifiers: Asthma complication type: unspecified (10) Obesity (BMI 30-39.9) Code(s): E66.9 - OBESITY, UNSPECIFIED Status: Chronic (11) Pancytopenia Code(s): D61.818 - OTHER PANCYTOPENIA Status: Chronic - Plan - Pt with bacteremia, dense pneumonia based on XR and recent soft tissue CT scan - requested Dr. Giang re-evaluation of patient for determination of abx duration. Pt was started on levaquin and metronidazole - uncertain if/how long these are needed. - repeat blood cx obtained yesterday - monitor DKA - resolved, blood sugars controlled. Continue insulin as ordered ecchymosis - soft, no signs of complication or compartment syndrome in RUE. neck pain = not well controlled - add low dose muscle relaxer robaxin prn. Ortho eval and signed off. Continue heating pad when not using lidocaine patchy - MRI not tolerated by patient and not completed - continue PT/OT ITP = stable, Hematology signed off. dvt prophy - ambulatory gi prophy - resume home famotidine resume other home meds such as dulera if available code status full pt remains at high risk in current condition anticipate d/c to home when abx duration and type known, and when neck pain controlled - in the next 1-2 days reviewed plan of care iwht patient and Mom by phone. No questions or further needs at end of eval Pt with persistent tachycardia here - will order tsh for AM. will also order iron/vitamin b12/folate if not recently performed.
[2019-02-02] MEDS: Methocarbamol 500 MG TAB PO PRN (17:05)
[2019-02-02] MEDS: Mometasone/Formoterol 120 PUFF INHALER INH SCH (19:05)
[2019-02-02] MEDS: Pregabalin 25 MG CAP PO SCH (20:26)
[2019-02-02] MEDS ORDERED: Famotidine 20 MG TAB PO SCH (21:00)
[2019-02-02] MEDS ORDERED: Montelukast Sodium 10 mg Tablet PO SCH (21:00)
[2019-02-02] MEDS: Lidocaine Patch Removal 1 EACH TOP SCH (23:43)
[2019-02-03] MEDS: Methocarbamol 500 MG TAB PO PRN (02:47)
[2019-02-03] MEDS: traMADol HCl 50 MG TAB PO PRN ×2 (04:14→12:23)
[2019-02-03] MEDS: Acetaminophen 325 MG TAB PO PRN ×2 (05:32→13:41)
[2019-02-03 06:13] LABS: #Eosinphils 0.1 thou/uL (0.0-0.7); #Lymphocytes 0.6 thou/uL (1.20-3.40); #Monocytes 0.4 thou/uL (0.11-0.59); #Neutrophils 3.1 thou/uL (1.40-6.50); %Basophils 0.2 % (0.0-1.0); %Eosinophils 1.7 % (0.0-10.0); %Lymphocytes 14.1 % (21.0-51.0); Mean Corpuscular HGB CONC 32.6 g/dL (32.0-36.0); Mean Corpuscular Hemoglobin 27.6 pg (27.0-31.0); Mean Corpuscular Volume 84.7 fL (78.0-98.0); Mean Platelet Volume 8.4 fL (7.4-10.4); Platelet Count 133 thou/uL (130-400); RBC Distribution Width 13.4 % (11.5-14.5); Red Blood Cell (RBC) Count 2.89 mill/uL (4.20-5.40); White Blood Cell (WBC) Count 4.2 thou/uL (4.8-10.8)
[2019-02-03 06:34] LABS: Anion Gap 12 mmol/L (10-20); BUN (Urea Nitrogen) 14 mg/dL (7.0-18.7); Calc. Creatinine Clearance 106 mL/min (70-130); Calcium 9.1 mg/dL (7.8-10.44); Carbon Dioxide 29 mmol/L (22-29); Chloride 102 mmol/L (98-107); Estimated GFR-MDRD 52; Glucose 116 mg/dL (70-105); Iron 21 ug/dL (50-170); Potassium 4.1 mmol/L (3.5-5.1); Sodium 139 mmol/L (136-145)
[2019-02-03 06:54] LABS: Ferritin 840.38 ng/mL (10-291); Thyroid Stimulating Hormone 4.1324 uIU/mL (0.35-4.94)
[2019-02-03] MEDS: Mometasone/Formoterol 120 PUFF INHALER INH SCH (07:34)
[2019-02-03] MEDS ORDERED: Saccharomyces boulardii 250 MG CAP PO SCH (09:00)
[2019-02-03] MEDS ORDERED: Clopidogrel Bisulfate 75 MG TAB ONE (09:23)
[2019-02-03] MEDS: guaiFENesin ER 600 MG TAB PO SCH (09:26)
[2019-02-03] MEDS: metroNIDAZOLE 500 MG TAB PO SCH (09:26)
[2019-02-03] MEDS: Insulin Glargine 50 UNITS in Pre-Filled Syringe 1 EACH SC SCH (09:27)
[2019-02-03] MEDS: HumaLOG 300 UNITS/3 ML VIAL SC SCH ×2 (09:28→12:24)
[2019-02-03] MEDS: Lidocaine 5% Patch TD SCH (10:16)
[2019-02-03] MEDS: Pregabalin 25 MG CAP PO SCH (10:18)
[2019-02-03] MEDS ORDERED: Lidocaine 1% w/Epinephrine 1:100K 20 ML VIAL ONE (11:56)
[2019-02-03] MEDS ORDERED: Folic Acid 1 MG TAB PO SCH (14:45)
[2019-02-03 16:15] VITALS: BP 125/82; TEMP 98.7
[2019-02-04] MEDS ORDERED: Folic Acid 1 MG TAB PO SCH (09:00)
--- NOTE | 2019-02-04 11:41 | DIS ---
DATE OF ADMISSION: 01/26/2019 DATE OF DISCHARGE: 02/03/2019 CONSULTANTS: 1. Dr. Mahajan of Pulmonology. 2. Dr. Giang of Infectious Disease. 3. Judith Vasquez, nurse practitioner of Oncology. 4. Orthopedics, Kirstie Cross PA-C. MEDICATIONS: Reconciled at discharge. New medications: 1. Folic acid 1 mg p.o. daily, prescription provided for 90 tablets. 2. Methocarbamol 500 mg t.i.d. p.r.n. muscle spasm, prescription provided for 20 tablets. 3. Guaifenesin ER 600 mg b.i.d. p.r.n. cough, prescription for 20 tablets. Medications to continue: 1. Tylenol 3 one to two tablets every 6 hours as needed. 2. Fioricet 1 tablet every 4 hours as needed. 3. Flonase 2 sprays each nostril daily as needed. 4. Lantus 45 units at night, 50 units in the morning. 5. Dulera 200/5 two puffs b.i.d. 6. Singulair 10 mg in the evening. 7. Lyrica 25 mg b.i.d. 8. Ranitidine 300 mg in the morning. 9. Florastor 250 mg daily. 10. Ventolin 2 puffs every 4 hours as needed. MEDICATIONS DISCONTINUED: Doxycycline, uncertain of what this was prescribed for. FINAL DIAGNOSES: 1. Severe sepsis and DIC secondary to pneumonia. 2. Pneumonia. 3. Acute diabetic ketoacidosis, resolved. 4. Acute respiratory failure with hypoxia secondary to pneumonia. 5. Pseudohyponatremia. 6. Disseminated intravascular coagulation secondary to severe sepsis. 7. Influenza. 8. Bacteremia secondary to Strep pneumoniae. 9. Asthma. 10. Paranasal sinus disease. 11. Leukopenia, mild. 12. Anemia, stable with folic acid deficiency. SECONDARY DIAGNOSES: 1. Chronic anemia. 2. Moderate mental retardation. 3. Morbid obesity. 4. Chronic kidney disease. 5. History of autoimmune hemolytic anemia. 6. History of splenomegaly. 7. Left-sided hydronephrosis, likely ureteropelvic junction obstruction, stable based on imaging. HISTORY OF PRESENT ILLNESS: Ms. Preciado is a 28-year-old female who was transferred to this facility secondary to severe sepsis, DKA, as well as new diagnosis of influenza, worsening shortness of breath and hypoxia. The patient was started on IV fluid hydration, broad-spectrum antibiotics, Tamiflu, and insulin therapy. HOSPITAL COURSE: Throughout this hospitalization, the patient has been hydrated with IV fluids, her blood sugars have been controlled initially with IV insulin and changing over to scheduled b.i.d. long-acting insulin. She was treated with broad-spectrum antibiotics of Rocephin daily from 01/27 to 01/31, and then changed over to Levaquin and metronidazole [address] Giang recommended a total course of about 1 week of IV antibiotics and cleared these to be finished today. The patient did have a positive blood culture with Strep pneumoniae from January 26, her repeat culture from February 01 is negative so far. The patient has been experiencing neck and back pain, of uncertain etiology. Orthopedics was consulted and has since signed off as there was no pathology identified. The patient had an MRI scheduled, however, was unable to tolerate. After initiation of a muscle relaxant yesterday, the patient is overall feeling well, moving well and no further imaging or workup is indicated for this. For severe sepsis and DIC, her platelet count has come back to normal, and she has completed the recommended course of antibiotic therapy from Infectious Disease. Hematology/Oncology signed-off when blood counts returned to the patient's usual baseline. The patient overall feeling well and does meet criteria for discharge to home. The patient has been tachycardic here with pulse in the 100s to 120s. This may be due to nebulizer therapy. TSH was checked today and is normal at 4.1. This should be monitored in the outpatient setting. Also note because of the anemia, which has been stable here, her folic acid level was checked and low, vitamin B12 is high, iron level is low; however, her ferritin is elevated. The patient is started on folic acid and I recommend repeating the iron and ferritin in the outpatient setting when this illness has completely resolved. PHYSICAL EXAMINATION: On day of discharge, VITAL SIGNS: Blood pressure 123/84, pulse 111, temperature 99.3, respirations 18, saturation 91% to 95% on room air. GENERAL: Awake, alert, responsive, in no apparent distress. Able to speak in full sentences. LUNGS: She has some decreased breath sounds on the left side. No audible rales , wheezing or rhonchi. HEART: Normal S1, S2. Regular rate and rhythm. No significant murmur. ABDOMEN: Soft. Present bowel sounds. EXTREMITIES: No edema. NEUROLOGIC: Moving arms and legs equally. Full range of motion in her neck. SKIN: She does have some ecchymosis along her upper arms that was present yesterday. ORTEGA FINDINGS AND TEST RESULTS: CBC; 4.2, 8.0, 24.5, 133. DIC panel showed high fibrinogen, abnormal fibrin degradation products, elevated D-dimer and elevated PT. ABG on admission; 7.25, 40, 76, 92%. Chemistry today; 139, 4.1, 102, 29, 14, 1.22 with a blood sugar of 116. Iron 21, ferritin 840, folate 6.4, vitamin B12 of 1578. TSH 4.13. Liver function tests on 01/28; T bilirubin 0.5, AST 10, ALT 7, alkaline phosphatase 80, total protein 5.3, albumin 2.5. Admission metabolic panel; 128, 5.2, 98, 13, 46, 2.66, 703. Urinalysis showed present protein, glucose, ketones, blood, leukocyte esterase, white blood cells, and squamous cells. Beta hydroxybutyrate 3.26 on admission. C difficile test is negative. Blood cultures from February 01, negative x2 so far. Urine culture from 01/26; mixed skin haile. Respiratory panel on 01/26, rhinovirus detected. Blood culture from 01/26, Strep pneumoniae, pansensitive to antibiotics tested. Soft tissue CT of the neck 01/31, shows nonspecific cervical chain adenopathy with numerous lymph nodes at all levels which appear similar to 2017, abnormal edema and density in the subcutaneous tissue of the lower neck and upper chest on the right at the sternoclavicular joint, which could represent injury. Recommend clinical correlation, dense consolidation in the left upper lobe posteriorly on images through the apices, persistent lucency surrounding the roots of the left mandibular molar concerning for periapical abscess, mucosal opacification of the left maxillary sinus, calcified nodule in the right lobe of the thyroid, which appears stable. Chest x-ray on 01/30, persistent confluent infiltrate in the left mid and upper lung. Chest, abdomen and pelvic CT on 01/26; area of densely consolidated lung within the left lower lobe favor most likely pneumonic consolidation, less likely a mass. Patchy infiltrative changes of the right upper and lower lung marcelino, marked splenomegaly similar to previous exam, moderate mediastinal, periaortic and mesenteric adenopathy, probably reactive-type nodes, abdominal adenopathy unchanged compared to prior exams, left-sided hydronephrosis probably related to a UPJ- type obstruction, unchanged to prior exam. FOLLOWUP: With the primary care provider within a week to re-evaluate this hospitalization and any other needs. ACTIVITY: As tolerated. DIET: Diabetic prudent. I have reviewed with the patient's mom this hospitalization the importance of followup, seek care precautions. No questions or further needs at the end of evaluation. Total time coordinating discharge is 45 minutes. CODE STATUS: Full. DISCHARGE DISPOSITION: Home Job ID: [id number] MTDD
== END 2019-02-03 15:52 | disposition home or self-care (01) | DRG 871 ==
LOC: ERS 02:51 → IMCU/EMU 09:03 → T4-B 01-28 18:12
PROVIDERS: ADMIT Internal Medicine; ATTEND Internal Medicine
DX: A40.3 Sepsis due to Streptococcus pneumoniae (principal); E11.10 Type 2 diabetes mellitus with ketoacidosis without coma; J96.01 Acute respiratory failure with hypoxia; D65 Disseminated intravascular coagulation [defibrination syndrome]; J10.08 Influenza due to other identified influenza virus with other specified pneumonia; J13 Pneumonia due to Streptococcus pneumoniae; G93.41 Metabolic encephalopathy; R65.20 Severe sepsis without septic shock; D59.1 Other autoimmune hemolytic anemias; N13.0 Hydronephrosis with ureteropelvic junction obstruction; D61.818 Other pancytopenia; E87.2 Acidosis; N17.9 Acute kidney failure, unspecified; D69.3 Immune thrombocytopenic purpura; J45.909 Unspecified asthma, uncomplicated; D52.9 Folate deficiency anemia, unspecified; F71 Moderate intellectual disabilities; N18.3 Chronic kidney disease, stage 3 (moderate); E87.5 Hyperkalemia; J01.00 Acute maxillary sinusitis, unspecified; E66.01 Morbid (severe) obesity due to excess calories; E86.9 Volume depletion, unspecified; E11.22 Type 2 diabetes mellitus with diabetic chronic kidney disease; M54.9 Dorsalgia, unspecified; H53.2 Diplopia; M54.2 Cervicalgia; M25.511 Pain in right shoulder; K04.7 Periapical abscess without sinus; R58 Hemorrhage, not elsewhere classified; Z79.4 Long term (current) use of insulin; Z79.51 Long term (current) use of inhaled steroids; Z79.899 Other long term (current) drug therapy; Z88.1 Allergy status to other antibiotic agents; Z88.8 Allergy status to other drugs, medicaments and biological substances; Z68.37 Body mass index [BMI] 37.0-37.9, adult
CPT/HCPCS: 36415; 36416; 36430; 70450; 70491; 71046; 71250; 74177; 80048; 80053; 80069; 80202; 81001; 82010; 82607; 82728; 82746; 82805; 83036; 83540; 83605; 83690; 83735; 84443; 84484; 84703; 85025; 85049; 85300; 85362; 85379; 85384; 85610; 85730; 86850; 86870; 86880; 86900; 86901; 86922; 87040; 87086; 87324; 87449; 87633; 94640; 96361; 96365; 96368; 96374; 96375; 99292; J0133; J0696; J1815; J1956; J2060; J2405; J2543; J2930; J3370; J3475; J3490; J7050; J7620; P9016; Q0162

== ENCOUNTER 2019-02-28 14:32 | Inpatient (IN) | payer OTHER ==
[~2019-02-28 14:32] MED LIST: Iopamidol-370 76% 500 ML 1 ML ONE
[2019-02-28] MEDS ORDERED: Albuterol Sulfate 2.5 mg/0.5 ml Neb ONE (14:59)
--- NOTE | 2019-02-28 15:10 | RAD ---
EXAM: Single view of the chest HISTORY: Pneumonia and sepsis COMPARISON: Chest CT 02/23/2019 FINDINGS: Single view of the chest shows a normal sized cardiomediastinal silhouette. Opacity is aga in seen in the left thorax consistent with infiltrate seen on prior chest CT. No pleural effusion is seen. The bones are unremarkable. IMPRESSION: Left-sided pneumonia
[2019-02-28 15:17] LABS: Hemoglobin 7.8 g/dL (12.0-16.0); Mean Corpuscular HGB CONC 34.6 g/dL (32.0-36.0); Mean Corpuscular Hemoglobin 29.2 pg (27.0-31.0); Mean Corpuscular Volume 84.3 fL (78.0-98.0); Mean Platelet Volume 11.1 fL (7.4-10.4); Platelet Count 98 thou/uL (130-400); RBC Distribution Width 19.3 % (11.5-14.5); Red Blood Cell (RBC) Count 2.67 mill/uL (4.20-5.40)
[2019-02-28 15:25] LABS: Actual Bicarbonate (HCO3a) 23.2 mEq/L (22-28); Analyzer IN Cardio ER; Base Excess (BEa) -0.8 mEq/L (-2.0 to +3.0); CO2 Tension 34.8 mmHg (35.0-45.0); Calcium, Ionized 1.15 mmol/L (1.12-1.30); Hemoglobin (Hb) 7.8 g/dL (12.0-16.0); Potassium - ABG Lab 4.11 mmol/L (3.70-5.30); pH, Arterial 7.44 (7.35-7.45)
[2019-02-28 15:26] LABS: O2 Tension (PaO2) 57.8 mmHg (80.0-100.0); Puncture Site LRA
[2019-02-28 15:36] LABS: White Blood Cell (WBC) Count 3.3 thou/uL (4.8-10.8)
[2019-02-28 15:37] LABS: ALT (SGPT) Less than 7 U/L (8-55); AST (SGOT) 51 U/L (5-34); Albumin 3.4 g/dL (3.5-5.0); Alkaline Phosphatase 55 U/L (40-110); Anion Gap 15 mmol/L (10-20); Anisocytosis SLIGHT = 6-15 cells (100X) (0-5/hpf); BUN (Urea Nitrogen) 11 mg/dL (7.0-18.7); Band 4 % (5-11); Bilirubin, Total 0.5 mg/dL (0.2-1.2); Calc. Creatinine Clearance 0 mL/min (70-130); Calcium 8.7 mg/dL (7.8-10.44); Carbon Dioxide 21 mmol/L (22-29); Chloride 109 mmol/L (98-107); Eosinophils 2 % (0-10); Estimated GFR-MDRD 50; Globulin 3.1 g/dL (2.4-3.5); Glucose 67 mg/dL (70-105); Lipase 16 U/L (8-78); Lymphocytes 26 % (21-51); MDiff Complete? YES; Magnesium 1.4 mg/dL (1.6-2.6); Metamyelocyte 1 % (0-0); Monocytes 4 % (0-10); Neutrophil 62 % (42-75); Nucleated RBC 2 % (0); Platelet Morphology Comment Appears Decreased; Polychromasia MODERATE = 3-4 cells (100X) (0-2/hpf); Potassium 5.8 mmol/L (3.5-5.1); Protein, Total 6.5 g/dL (6.0-8.3); Sodium 139 mmol/L (136-145); Tear Drops SLIGHT = 2-5 cells (100X) (0-1/hpf)
[2019-02-28] MEDS ORDERED: cefTRIAXone\\ROCEPHIN 2 GM VIAL ONE (16:02)
[2019-02-28] MEDS ORDERED: Azithromycin 500 MG VIAL ONE (16:02)
[2019-02-28] MEDS ORDERED: Magnesium 2 GM/50 ML BAG (IN WATER) ONE (17:15)
[2019-02-28 18:18] LABS: Pregnancy Test - Urine (BHCG) Negative (Negative); Pregu Control Background? CLEAR/WHITE (CLR/WHITE); Pregu Control Bar Appear? YES (CONTROL BAR)
[2019-02-28 18:19] LABS: Bilirubin Negative (Negative); Blood, Urine Negative (Negative); Clarity Clear (Clear); Glucose, Urine (Dipstick) Normal (Negative); Leukocyte Negative Leu/uL (Negative); Nitrite Negative (Negative); Protein, Urine (Dipstick) 20 mg/dL (Neg-Trace); Urobilinogen Normal mg/dL (Less than 2)
[2019-02-28 18:20] LABS: Specific Gravity 1.014 (1.002-1.036)
[2019-02-28] MEDS ORDERED: Dextrose 50% Abboject 50 ML SYRINGE SLOW IVP PRN (19:44)
[2019-02-28] MEDS ORDERED: Dextrose 5% in Water 1,000 ML IV PRN (19:44)
--- NOTE | 2019-02-28 19:53 | PDOC.HHP ---
Hospitalist HPI - History of Present Illness Cough History of Present Illness: Ms. Preciado is a 28 y/o lady with PMH of ITP, developmental delay, recent admission for s. pneumoniae bacteremia/pneumonia who presents to the ED with shortness of breath and cough. History obtained from the mother. She was apparently fine after being discharged from the ED one month ago and last night started developing cough. Mother states that when she went to check on her today she was weak and slouched over and breathing fast. She decided to bring her to the emergency room. She apparently was admitted last month with s. pneumoniae bacteremia and pneumonia. In the ED, found to have RR in the 30s, tachycardic at 130, initial systolic BP in 80s, was given 2L bolus and reponded on fluids no on nasal cannula 4L. Denies any cp, fever, diarrhea, abdominal pain , nausea, vomiting, or other associated sxs. Hospitalist ROS - Review of Systems Constitutional: reports: chills Eyes: denies: pain, vision change, conjunctivae inflammation, eyelid inflammation, redness, other ENT: denies: ear pain, ear discharge, nose pain, nose discharge, nose congestion , mouth pain, mouth swelling, throat pain, throat swelling, other Respiratory: reports: cough, shortness of breath. denies: dry, hemoptysis, SOB with excertion, pleuritic pain, sputum, wheezing, other Cardiovascular: denies: chest pain, palpitations, orthopnea, paroxysmal noc. dyspnea, edema, light headedness, other Gastrointestinal: denies: nausea, vomiting, abdominal pain, diarrhea, constipation, melena, hematochezia, other Genitourinary: denies: dysuria, frequency, incontinence, hematuria, retention, other Skin: denies: rash, lesions, alfredo, bruising, other Neurological: denies: weakness, numbness, incoordination, change in speech, confusion, seizures, other - Medication Medications: Lantus VIAL (ML) : Strength - 100 unit/mL : SUBCUTANEOUS Patient Dose: 60 units Subcutaneous 2 times a day. ranitidine oral CAPSULE : Strength - 300 mg : ORAL Patient Dose: 300 mg Oral once a day. Ventolin HFA HFA AEROSOL WITH ADAPTER (GRAM) : Strength - 90 mcg : INHALATION Patient Dose: 1-2 puff(s) Inhaler As Needed. albuterol sulfate inhalation VIAL, NEBULIZER (ML) : Strength - 2.5 mg/3 mL (0.083 %) : INHALATION Patient Dose: 1 vial(s) Nebulize As Needed. Hospitalist History - Past Medical History Source: patient, mother Cardiac: reports: no pertinent history Pulmonary: reports: pneumonia [employer]: reports: no pertinent history Gastrointestinal: reports: no pertinent history Heme/Onc: reports: Other (idopathic purpura) Hepatobiliary: reports: no pertinent history Psych: reports: Other (Developmental delay) Musculoskeletal: reports: no pertinent history Rheumatologic: reports: no pertinent history Infectious Disease: reports: no pertinent history ENT: reports: no pertinent history Renal/: reports: no pertinent history Endocrine: reports: no pertinent history, Diabetes Dermatology: reports: no pertinent history - Past Surgical History Past Surgical History: reports: no pertinent history - Family History Family History: reports: hypertension - Social History Smoking Status: Never smoker Alcohol: reports: None Drugs: reports: none Living Situation: With Family Activity level: independent ambulation Other Social History: developmental delay - Exam General Appearance: awake alert General - other findings: mild distress Eye: PERRL, anicteric sclera ENT: normocephalic atraumatic, no oropharyngeal lesions, moist mucosa Neck: supple, symmetric, no JVD, no thyromegaly, no lymphadenopathy, no carotid bruit Heart: RRR, no murmur, no gallops, no rubs, normal peripheral pulses Respiratory: normal chest expansion, rhonchi, tachypneic Gastrointestinal: soft, non-tender, non-distended, normal bowel sounds, no palpable masses, no hepatomegaly, no splenomegaly, no bruit Extremities: no cyanosis, no clubbing, no edema Skin: normal turgor, no lesions, no rashes Neurological: cranial nerve grossly intact, normal sensation to touch, no weakness, no focal deficits, no new deficit Musculoskeletal: normal tone, normal strength, no muscle wasting Psychiatric: normal affect, normal behavior, A&O x 3 Hospitalist Results - Labs Result Diagrams: 02/28/19 15:09 02/28/19 15:09 Lab results: WBC 3.3 thou/uL (4.8-10.8) L 02/28/19 15:09 Hgb 7.8 g/dL (12.0-16.0) L 02/28/19 15:09 Hct 22.5 % (36.0-47.0) L 02/28/19 15:09 MCV 84.3 fL (78.0-98.0) 02/28/19 15:09 Plt Count 98 thou/uL (130-400) L 02/28/19 15:09 Band Neuts % (Manual) 4 % (5-11) L 02/28/19 15:09 ABG pH 7.44 (7.35-7.45) 02/28/19 15:15 ABG pCO2 34.8 mmHg (35.0-45.0) L 02/28/19 15:15 ABG pO2 57.8 mmHg (80.0-100.0) L* 02/28/19 15:15 Sodium 139 mmol/L (136-145) 02/28/19 15:09 Potassium 5.8 mmol/L (3.5-5.1) H 02/28/19 15:09 Chloride 109 mmol/L (98-107) H 02/28/19 15:09 Carbon Dioxide 21 mmol/L (22-29) L 02/28/19 15:09 BUN 11 mg/dL (7.0-18.7) 02/28/19 15:09 Creatinine 1.27 mg/dL (0.6-1.1) H 02/28/19 15:09 Glucose 67 mg/dL (70-105) L 02/28/19 15:09 Lactic Acid 1.4 mmol/L (0.5-2.2) 02/28/19 15:08 Calcium 8.7 mg/dL (7.8-10.44) 02/28/19 15:09 Total Bilirubin 0.5 mg/dL (0.2-1.2) 02/28/19 15:09 AST 51 U/L (5-34) H 02/28/19 15:09 ALT Less than 7 U/L (8-55) L 02/28/19 15:09 Alkaline Phosphatase 55 U/L (40-110) 02/28/19 15:09 Troponin I Less than 0.010 ng/mL (< 0.028) 02/28/19 15:09 B-Natriuretic Peptide 95.6 pg/mL (0-100) 02/28/19 15:09 Serum Total Protein 6.5 g/dL (6.0-8.3) 02/28/19 15:09 Albumin 3.4 g/dL (3.5-5.0) L 02/28/19 15:09 Lipase 16 U/L (8-78) 02/28/19 15:09 Urine Ketones Negative mg/dL (Negative) 02/28/19 18:02 Urine Blood Negative (Negative) 02/28/19 18:02 Urine Nitrite Negative (Negative) 02/28/19 18:02 Ur Leukocyte Esterase Negative Nohemi/uL (Negative) 02/28/19 18:02 Additional comment: VITAL SIGNS Sat Feb 28, 2019 18:24 DARLEEN Farias, Chantale BP: 125/79, MAP: 94, Pulse: 124, Resp: 29, Pain: 8, O2 sat: 95, Time: 2018 18:24. - Radiology Interpretation Chest x-ray Status: report reviewed by me Hospitalist H&P A/P - Problem (1) Recurrent pneumonia Code(s): J18.9 - PNEUMONIA, UNSPECIFIED ORGANISM Status: Acute (2) Sepsis Code(s): A41.9 - SEPSIS, UNSPECIFIED ORGANISM Status: Acute (3) Idiopathic thrombocytopenic purpura (ITP) Code(s): D69.3 - IMMUNE THROMBOCYTOPENIC PURPURA Status: Acute (4) Diabetes type 2, uncontrolled Code(s): E11.65 - TYPE 2 DIABETES MELLITUS WITH HYPERGLYCEMIA Status: Chronic (5) Pancytopenia and developmental delay syndrome Code(s): D61.09 - OTHER CONSTITUTIONAL APLASTIC ANEMIA; R62.50 - UNSP LACK OF EXPECTED NORMAL PHYSIOL DEV IN CHILDHOOD Status: Acute - Plan Plan: Admit to IMCU for sepsis/pneumonia. Greater than two midnights likely for eval and tx of recurrent pneumonia CXR suggestive of infiltrate EGDT fluid of 2L NS given in ED, responsive to fluids Vancomycin and Cefepime, given recent hospitalization. MRSA and pseudomonal coverage at this time. Consult to infectious disease given her reucrrence, she is also immunecomprimised to mild pancytopenia due to ITP Follow blood and sputum cultures Strep pneumoniae urine antigen She is Insulin dependent at home, Glargine 20units tomorrow, medication to be reonciled once in system, BSG ACHS DVT Prophylaxis: SCDs Code status: Full ACP: Mother is surrogate decision maker. She has devleopmental delay and mother makes decisions. Disposition: Admit for tx of pneumonia/sepsis.
--- NOTE | 2019-02-28 20:03 | CT ---
CT angiogram chest: 02/28/2019 COMPARISON: Noncontrast enhanced chest CT 02/23/2019 History: Shortness of breath, pain, assess for pulmonary embolism TECHNIQUE: Axial CT imaging at 2.5 mm intervals from the thoracic inlet through the upper abdomen wit h IV contrast using CT angiogram protocol. Coronal and oblique sagittal 3-D reformatted imaging obtained. FINDINGS: Bilateral axillary/retropectoral lymphadenopathy seen, stable. Stable extensive mediastinal lymphadenopathy, which includes right paratracheal lymph node measuring 1.8 cm in short axis dimension, numerous paratracheal and prevascular nodes, and enlarged subcarinal lymph node measuring 1.9 cm. No significant pleural, pericardial, or mediastinal fluid. Limited assessment of the upper abdomen de monstrates marked enlargement of the spleen, which measures at least 16.6 cm AP dimension by 9 cm transverse dimension. There is trace pleural fluid on the left abutting a dense area of consolidation involving the posteri or aspect of the left upper lobe as well as the superior segment of the left lower lobe and the posterior medial aspect of the midportion of the left lower lobe. Extensive consolidative change of t he left upper and left lower lobe is stable when compared to the 02/23/2019 CT. Mild scattered ground glass/reticular nodular density noted in the right upper lobe posteriorly suggesting an inflam matory/infectious process. Imaged aorta appears grossly unremarkable. No pulmonary arterial filling defect is seen to suggest the presence of acute pulmonary arterial embo lism. Osseous structures demonstrate no worrisome lytic or blastic bone lesions. There is inflammatory schumacher ge in the region of the right sternoclavicular joint as seen on prior imaging, which may represent septic arthritis. IMPRESSION: No evidence for pulmonary arterial embolism. Extensive lymphadenopathy in the chest which may be on the basis of reactive change or malignancy, aguayo ch as lymphoma. Marked enlargement of the spleen, nonspecific. Residual inflammatory change in the region of the right sternoclavicular joint. Question septic arthritis. Persistent dense consolidative change within the left upper lobe and left lower lobe suggesting persi stent infectious pneumonitis/aspiration. Malignancy in this region cannot be excluded. Pulmonary consultation and short-term follow-up imaging suggested. CODE T
[2019-02-28] MEDS ORDERED: Vancomycin HCl 750 MG in Sodium Chloride 0.9% 250 ML 250 ML IVPB SCH (21:00)
[2019-02-28] MEDS ORDERED: Vancomycin 1.5 GRAM/300 ML BAG 1.5 GM in Premix Bag 1 BAG IVPB SCH (21:00)
[2019-02-28] MEDS ORDERED: Cefepime 1 GM in Sodium Chloride 0.9% 100 ML IVPB SCH (22:00)
[2019-03-01 00:18] VITALS: BMI 36.2
[2019-03-01] MEDS: Acetaminophen 325 MG TAB PO PRN ×2 (03:29→17:07)
[2019-03-01] MEDS: Cefepime 1 GM in Sodium Chloride 0.9% 100 ML IVPB SCH ×2 (03:29→16:12)
[2019-03-01 03:51] LABS: Anion Gap 13 mmol/L (10-20); BUN (Urea Nitrogen) 11 mg/dL (7.0-18.7); Calc. Creatinine Clearance 105 mL/min (70-130); Calcium 7.7 mg/dL (7.8-10.44); Carbon Dioxide 19 mmol/L (22-29); Chloride 110 mmol/L (98-107); Estimated GFR-MDRD 53; Glucose 131 mg/dL (70-105); Potassium 4.2 mmol/L (3.5-5.1); Sodium 138 mmol/L (136-145)
[2019-03-01 04:12] LABS: Hemoglobin 6.3 g/dL (12.0-16.0); Hypochromia SLIGHT = 6-15 cells (100X) (0-5/hpf); Lymphocytes 48 % (21-51); MDiff Complete? YES; Mean Corpuscular HGB CONC 32.5 g/dL (32.0-36.0); Mean Corpuscular Hemoglobin 28.3 pg (27.0-31.0); Mean Platelet Volume 9.2 fL (7.4-10.4); Monocytes 6 % (0-10); Neutrophil 46 % (42-75); Platelet Count 66 thou/uL (130-400); Platelet Morphology Comment Appears Decreased; RBC Distribution Width 18.7 % (11.5-14.5); Red Blood Cell (RBC) Count 2.22 mill/uL (4.20-5.40); White Blood Cell (WBC) Count 2.7 thou/uL (4.8-10.8)
[2019-03-01] MEDS ORDERED: FLU VACC QS2019-20(6MOS UP)/PF 60 MCG/0.5 ML SYRINGE IM ONE (09:00)
--- NOTE | 2019-03-01 09:21 | RAD ---
EXAM: Single view of the chest HISTORY: Pneumonia COMPARISON: 02/20/2019 FINDINGS: Single view of the chest shows a normal sized cardiomediastinal silhouette. Airspace opacit ies again seen in the left upper lobe. The bones are unremarkable. IMPRESSION: Left upper lobe pneumonia
[2019-03-01] MEDS: Insulin Glargine 20 UNITS in Pre-Filled Syringe 1 EACH SC SCH (10:05)
[2019-03-01] MEDS: Vancomycin HCl 1 GM in Premix Bag 1 BAG IVPB SCH ×2 (10:12→22:12)
--- NOTE | 2019-03-01 11:28 | PDOC.HOSPP ---
- Subjective Encounter Date: 03/01/19 Encounter Time: 11:27 Subjective: Doing better. Still has a dry cough. Reports generalized abd discomfort, but indicates that is normal for her when she gets up to the bathroom to have BM like she did this morning. - Objective Vital Signs & Weight: Vital Signs (12 hours) Temp Pulse Pulse Resp BP Pulse Ox 03/01/19 11:15 97.8 F 03/01/19 10:53 109 H 17 99 03/01/19 10:32 98.1 F 107 H 23 H 91/55 L 100 03/01/19 08:00 95 03/01/19 07:29 97.4 F L 03/01/19 07:23 99 03/01/19 07:21 109 H 22 H 99 03/01/19 03:41 99.1 F 03/01/19 02:55 122 H 22 H 98 Weight Weight 211 lb 3.2 oz Most Recent Monitor Data Heart Rate from ECG 108 NIBP 123/85 NIBP BP-Mean 97 Respiration from ECG 21 SpO2 95 I&O: 02/28/19 03/01/19 03/02/19 06:59 06:59 06:59 Intake Total 0 Balance 0 Result Diagrams: 03/01/19 03:22 03/01/19 03:22 Additional Labs: Accuchecks 03/01/19 10:32 POC Glucose 278 H Hospitalist ROS - Medication Medications: Active Medications Generic Name Dose Route Start Last Admin Trade Name Freq PRN Reason Stop Dose Admin Acetaminophen 650 mg 02/28/19 19:31 03/01/19 03:29 Tylenol PO 650 mg Q4H PRN Administration Headache/Fever/Mild Pain (1-3) Albuterol/Ipratropium 3 ml 02/28/19 22:30 03/01/19 10:53 Duoneb NEB 3 ml [id number] KHAI Administration Insulin Glargine 20 units/ 0.2 mls @ 0 mls/hr 03/01/19 09:00 03/01/19 10:05 Miscellaneous Medication SC 0.2 mls QAM KHAI Administration Vancomycin HCl 1 gm/ Device 200 mls @ 200 mls/hr 03/01/19 09:00 03/01/19 10: 12 IVPB 200 mls Q12HR KHAI Administration Cefepime HCl 1 gm/ Sodium 100 mls @ 200 mls/hr 12/29/19 03:00 03/01/19 03:29 Chloride IVPB 100 mls 0300,1500 KHAI Administration Sodium Chloride 10 ml 02/28/19 21:00 03/01/19 10:11 Flush - Normal Saline IVF 10 ml Q12HR KHAI Administration - Exam General Appearance: NAD, awake alert General - other findings: Obese. Heart: RRR, no murmur, no gallops, no rubs, normal peripheral pulses Heart - other findings: Tachy Respiratory - other findings: Generalized rales, mild exp wheezes. Gastrointestinal: soft, non-tender, non-distended, normal bowel sounds, no palpable masses, no hepatomegaly, no splenomegaly, no bruit Extremities: no cyanosis, no clubbing, no edema Skin: normal turgor Neurological: no focal deficits Musculoskeletal: normal tone Psychiatric: normal affect, normal behavior Hosp A/P (1) Pancytopenia and developmental delay syndrome Code(s): D61.09 - OTHER CONSTITUTIONAL APLASTIC ANEMIA; R62.50 - UNSP LACK OF EXPECTED NORMAL PHYSIOL DEV IN CHILDHOOD Status: Acute (2) Obesity Code(s): E66.9 - OBESITY, UNSPECIFIED Status: Acute (3) Pneumonia Code(s): J18.9 - PNEUMONIA, UNSPECIFIED ORGANISM Status: Acute (4) Volume depletion Code(s): E86.9 - VOLUME DEPLETION, UNSPECIFIED Status: Acute (5) Asthma Code(s): J45.909 - UNSPECIFIED ASTHMA, UNCOMPLICATED Status: Chronic Qualifiers: Asthma complication type: unspecified (6) CKD (chronic kidney disease), stage III Status: Chronic (7) Diabetes type 2, uncontrolled Code(s): E11.65 - TYPE 2 DIABETES MELLITUS WITH HYPERGLYCEMIA Status: Chronic (8) Hypersplenism Code(s): D73.1 - HYPERSPLENISM Status: Chronic - Plan Patient was here earlier this month with a dense consolidation of the left lung based on CT findings. She was treated for pneumonia and apparently was clinically doing well. Returned with cough. Required some fluids in the ED to firm up BP. She had repeat CT with persistent infiltrate, but actually looks better than the CT from January. Unclear if this is recurrence or persistence of imaging findings. Currently on Vanc and Cefepime. She is tachycardic, but was persistently tachycardic throughout her last admission. She has pancytopenia and splenomegaly. Apparently, she has pancytopenia and developmental delay syndrome. Concerning that this may be predisposing her to infection. Consulting Heme/Onc. Not sure there is anything to be done, but this is an unfamiliar dx. Transfusing one unit prbc's. Continue SSI. Will resume home meds once updated.
[2019-03-01 15:48] LABS: Complement-C4 33.1 mg/dL (15-57)
[2019-03-01] MEDS: HumaLOG 300 UNITS/3 ML VIAL SC PRN (16:55)
[2019-03-01 18:15] LABS: Legionella Urinary Ag Negative (Negative); Strep pneumo Urine Ag POSITIVE (NEGATIVE)
[2019-03-01] MEDS ORDERED: Aquaphor 10 GM TUBE TOP PRN (20:05)
[2019-03-01] MEDS: diphenhydrAMINE 25 MG CAP PO PRN (22:12)
[2019-03-01] MEDS ORDERED: HumaLOG 300 UNITS/3 ML VIAL SC PRN (22:36)
[2019-03-02] MEDS: Cefepime 1 GM in Sodium Chloride 0.9% 100 ML IVPB SCH ×2 (02:59→16:27)
[2019-03-02] MEDS: HumaLOG 300 UNITS/3 ML VIAL SC PRN ×3 (05:05→18:36)
[2019-03-02] MEDS: diphenhydrAMINE 25 MG CAP PO PRN ×2 (05:11→12:38)
[2019-03-02 08:24] LABS: Hemoglobin 8.5 g/dL (12.0-16.0); Mean Corpuscular HGB CONC 33.2 g/dL (32.0-36.0); Mean Corpuscular Hemoglobin 28.8 pg (27.0-31.0); Mean Corpuscular Volume 86.7 fL (78.0-98.0); Mean Platelet Volume 9.6 fL (7.4-10.4); Platelet Count 65 thou/uL (130-400); RBC Distribution Width 17.4 % (11.5-14.5); Red Blood Cell (RBC) Count 2.95 mill/uL (4.20-5.40); White Blood Cell (WBC) Count 1.9 thou/uL (4.8-10.8)
[2019-03-02 08:44] LABS: Vancomycin, Trough 27.2 ug/mL
[2019-03-02 08:48] LABS: Anion Gap 12 mmol/L (10-20); BUN (Urea Nitrogen) 15 mg/dL (7.0-18.7); Calc. Creatinine Clearance 97 mL/min (70-130); Calcium 8.6 mg/dL (7.8-10.44); Carbon Dioxide 20 mmol/L (22-29); Chloride 109 mmol/L (98-107); Estimated GFR-MDRD 48; Glucose 217 mg/dL (70-105); Potassium 5.2 mmol/L (3.5-5.1); Sodium 136 mmol/L (136-145)
[2019-03-02] MEDS ORDERED: Vancomycin HCl 750 MG in Sodium Chloride 0.9% 250 ML 250 ML IVPB SCH ×2 (09:00→21:00)
[2019-03-02 09:57] LABS: Lymphocytes 34 % (21-51); MDiff Complete? YES; Monocytes 10 % (0-10); Neutrophil 54 % (42-75); Platelet Morphology Comment Appears Decreased; Polychromasia SLIGHT = 2-3 cells (100X) (0-2/hpf); Reactive Lymphocytes 2 % (0-10)
[2019-03-02] MEDS: Insulin Glargine 20 UNITS in Pre-Filled Syringe 1 EACH SC SCH (10:29)
[2019-03-02] MEDS: Acetaminophen 325 MG TAB PO PRN (14:32)
--- NOTE | 2019-03-02 15:43 | PDOC.MOPN ---
Interval History: denies complaints. - Vital Signs Vital Signs: Vital Signs (12 hours) Temp Pulse Resp BP Pulse Ox 03/02/19 15:10 96 16 03/02/19 11:45 97.9 F 95 20 120/76 03/02/19 11:29 88 19 03/02/19 08:23 98.1 F 107 H 20 123/61 96 03/02/19 07:55 96 15 03/02/19 05:18 97.6 F 105 H 16 124/76 98 03/02/19 04:36 94 L 03/02/19 03:59 96 Weight Weight 211 lb 3.2 oz Most Recent Monitor Data Heart Rate from ECG 115 NIBP 121/68 NIBP BP-Mean 85 Respiration from ECG 18 SpO2 94 - Physical Exam General: Alert, Oriented x3, No acute distress HEENT: Atraumatic, PERRLA, EOMI, Mucous membr. moist/pink Lungs: Other Cardiovascular: Regular rate, Normal S1, Normal S2, No murmurs, Gallops, Rubs Abdomen: Normal bowel sounds, Soft, No tenderness, No hepatospenomegaly, No masses Extremities: No clubbing, No cyanosis, No edema, Normal pulses, No tenderness/ swelling Skin: No rashes, No breakdown, No significant lesion Neurological: Normal speech - Labs Result Diagrams: 03/02/19 08:09 03/02/19 08:10 Lab results: Laboratory Results - last 24 hr 03/02/19 10:58: POC Glucose 335 H 03/02/19 08:10: Sodium 136, Potassium 5.2 H, Chloride 109 H, Carbon Dioxide 20 L , Anion Gap 12, BUN 15, Creatinine 1.30 H, Estimated GFR (MDRD) 48, Glucose 217 H, Calcium 8.6 03/02/19 08:10: Vancomycin Trough 27.2 03/02/19 08:09: WBC 1.9 L, RBC 2.95 L, Hgb 8.5 L, Hct 25.5 L, MCV 86.7, MCH 28.8 , MCHC 33.2, RDW 17.4 H, Plt Count 65 L, MPV 9.6, Neutrophils % (Manual) 54, Lymphocytes % (Manual) 34, Reactive Lymphs % 2, Monocytes % (Manual) 10, Neutrophils # Not Reportable, Lymphocytes # Not Reportable, Plt Morphology Comment Appears Decreased L, Polychromasia SLIGHT = 2-3 cells 03/02/19 04:57: POC Glucose 227 H 03/01/19 22:32: POC Glucose 311 H 03/01/19 20:14: POC Glucose 323 H 03/01/19 16:58: POC Glucose 302 H 03/01/19 16:33: Ur Strep pneumoniae Ag POSITIVE A 03/01/19 16:33: Ur L.pneumophila Ag Negative 03/01/19 15:12: Complement C3 121.00, Complement C4 33.10 03/01/19 15:12: Lactate Dehydrogenase 263 H 03/01/19 15:12: IgG Total 594.00, IgM Total 94.00 03/01/19 06:08: POC Glucose 166 H Status: lab reviewed by me A/P - Problem (1) Pancytopenia Current Visit: Yes Code(s): D61.818 - OTHER PANCYTOPENIA Status: Acute (2) Idiopathic thrombocytopenic purpura (ITP) Current Visit: No Code(s): D69.3 - IMMUNE THROMBOCYTOPENIC PURPURA Status: Acute - Plan Plan: doing well r/o septic joint right clavicle, ID on board flow cytometry on peripheral blood Follow-up Dr. Cotto next week in clinic.
[2019-03-02] MEDS ORDERED: Sodium Chloride 0.9% 10 ML ONE (17:09)
--- NOTE | 2019-03-02 20:43 | PDOC.HOSPP ---
- Subjective Subjective: Complains of pain in the right arm. From wrist to the neck. Breathing is good. No other complaints. - Objective Vital Signs & Weight: Vital Signs (12 hours) Temp Pulse Resp BP Pulse Ox 03/02/19 18:19 92 16 96 03/02/19 17:15 98.3 F 104 H 20 116/75 94 L 03/02/19 15:10 96 16 03/02/19 11:45 97.9 F 95 20 120/76 03/02/19 11:29 88 19 Weight Weight 211 lb 3.2 oz Most Recent Monitor Data Heart Rate from ECG 115 NIBP 121/68 NIBP BP-Mean 85 Respiration from ECG 18 SpO2 94 I&O: 03/01/19 03/02/19 03/03/19 06:59 06:59 06:59 Intake Total 590 Balance 590 Result Diagrams: 03/02/19 08:09 03/02/19 08:10 Additional Labs: Accuchecks 03/02/19 03/02/19 03/02/19 17:28 10:58 04:57 POC Glucose 236 H 335 H 227 H 03/01/19 03/01/19 22:32 20:14 POC Glucose 311 H 323 H Hospitalist ROS - Medication Medications: Active Medications Generic Name Dose Route Start Last Admin Trade Name Freq PRN Reason Stop Dose Admin Acetaminophen 650 mg 02/28/19 19:31 03/02/19 14:32 Tylenol PO 650 mg Q4H PRN Administration Headache/Fever/Mild Pain (1-3) Albuterol/Ipratropium 3 ml 02/28/19 22:30 03/02/19 18:19 Duoneb NEB 3 ml [id number] KHAI Administration Diphenhydramine HCl 25 mg 03/01/19 20:08 03/02/19 12:38 Benadryl PO 25 mg Q4H PRN Administration Itching Insulin Glargine 20 units/ 0.2 mls @ 0 mls/hr 03/01/19 09:00 03/02/19 10:29 Miscellaneous Medication SC 0.2 mls QAM KHAI Administration Levofloxacin 500 mg/ Device 100 mls @ 100 mls/hr 03/02/19 17:00 03/02/19 17: 16 IVPB 100 mls 1700 KHAI Administration Insulin Human Lispro 0 units 02/28/19 19:44 03/02/19 18:36 Humalog SC 4 units .MODERATE SLIDING SC PRN Administration Moderate Correctional Scale Insulin Human Lispro 0 units 03/01/19 22:36 03/01/19 22:58 Humalog SC 4 unit .BEDTIME SLIDING SC PRN Administration Bedtime Correctional Scale Sodium Chloride 10 ml 02/28/19 21:00 03/02/19 09:00 Flush - Normal Saline IVF Not Given Q12HR KHAI - Exam General Appearance: NAD, awake alert Heart: RRR, no murmur, no gallops, no rubs, normal peripheral pulses Respiratory: no ronchi, normal chest expansion, no tachypnea, normal percussion , rales (scattered, bilateral.) Gastrointestinal: soft, non-tender, non-distended, normal bowel sounds, no palpable masses, no hepatomegaly, no splenomegaly, no bruit Skin: normal turgor Skin - other findings: Diffuse patchy erythema Neurological: no new deficit Musculoskeletal: normal tone Musculoskeletal - other findings: TTP of the right arm - vein distribution. TTP of the R steroclav joint Psychiatric: normal affect, normal behavior Hosp A/P (1) Pancytopenia and developmental delay syndrome Code(s): D61.09 - OTHER CONSTITUTIONAL APLASTIC ANEMIA; R62.50 - UNSP LACK OF EXPECTED NORMAL PHYSIOL DEV IN CHILDHOOD Status: Acute (2) Obesity Code(s): E66.9 - OBESITY, UNSPECIFIED Status: Acute (3) Pneumonia Code(s): J18.9 - PNEUMONIA, UNSPECIFIED ORGANISM Status: Acute (4) Volume depletion Code(s): E86.9 - VOLUME DEPLETION, UNSPECIFIED Status: Acute (5) Asthma Code(s): J45.909 - UNSPECIFIED ASTHMA, UNCOMPLICATED Status: Chronic Qualifiers: Asthma complication type: unspecified (6) CKD (chronic kidney disease), stage III Status: Chronic (7) Diabetes type 2, uncontrolled Code(s): E11.65 - TYPE 2 DIABETES MELLITUS WITH HYPERGLYCEMIA Status: Chronic (8) Hypersplenism Code(s): D73.1 - HYPERSPLENISM Status: Chronic - Plan Patient was here earlier this month with a dense consolidation of the left lung based on CT findings. She was treated for pneumonia and apparently was clinically doing well. Returned with cough. Required some fluids in the ED to firm up BP. She had repeat CT with persistent infiltrate, but actually looks better than the CT from January. Unclear if this is recurrence or persistence of imaging findings. Currently on Vanc and Cefepime. Discussed with Dr. Giang. Will change to Levaquin in light of the rash. Possibly septic R sternoclav joint. Tachycardia improved. She has pancytopenia and splenomegaly. Apparently, she has pancytopenia and developmental delay syndrome. Concerning that this may be predisposing her to infection. Transfuse as needed. Continue SSI. Will resume home meds once updated.
[2019-03-03] MEDS: diphenhydrAMINE 25 MG CAP PO PRN ×2 (00:38→08:39)
[2019-03-03] MEDS: HumaLOG 300 UNITS/3 ML VIAL SC PRN (06:55)
[2019-03-03] MEDS: Insulin Glargine 20 UNITS in Pre-Filled Syringe 1 EACH SC SCH (08:39)
[2019-03-03 08:58] LABS: Hemoglobin 8.3 g/dL (12.0-16.0); Mean Corpuscular HGB CONC 32.4 g/dL (32.0-36.0); Mean Corpuscular Hemoglobin 28.2 pg (27.0-31.0); Mean Corpuscular Volume 86.9 fL (78.0-98.0); Mean Platelet Volume 9.3 fL (7.4-10.4); Platelet Count 71 thou/uL (130-400); RBC Distribution Width 17.3 % (11.5-14.5); Red Blood Cell (RBC) Count 2.95 mill/uL (4.20-5.40); White Blood Cell (WBC) Count 1.7 thou/uL (4.8-10.8)
[2019-03-03 09:14] LABS: Anion Gap 10 mmol/L (10-20); BUN (Urea Nitrogen) 14 mg/dL (7.0-18.7); Calc. Creatinine Clearance 103 mL/min (70-130); Calcium 8.9 mg/dL (7.8-10.44); Carbon Dioxide 24 mmol/L (22-29); Chloride 109 mmol/L (98-107); Estimated GFR-MDRD 52; Glucose 147 mg/dL (70-105); Potassium 5.4 mmol/L (3.5-5.1); Sodium 138 mmol/L (136-145)
[2019-03-03 09:50] LABS: Band 2 % (5-11); Eosinophils 6 % (0-10); Lymphocytes 46 % (21-51); MDiff Complete? YES; Monocytes 8 % (0-10); Neutrophil 38 % (42-75); Ovalocytes SLIGHT = 2-5 cells (100X) (0-1/hpf); Platelet Morphology Comment Appears Decreased; Polychromasia SLIGHT = 2-3 cells (100X) (0-2/hpf)
--- NOTE | 2019-03-03 11:07 | CON ---
DATE OF CONSULTATION: REASON FOR CONSULTATION: Recurrence of pneumonia. HISTORY OF PRESENT ILLNESS: A 28-year-old whom I had seen recently in January when she presented with a history of type 1 diabetes mellitus, pyelonephritis, facial cellulitis, dental caries with infection, and mandibular abscess. 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 pneumoniae pneumonia with bacteremia. She was released on 02/03, and she went home on Flonase, Fioricet, insulin, Dulera, Ventolin, Florastor. Discharge diagnosis was DIC secondary pneumonia and influenza. DKA, resolved and bacteremia due to Streptococcus pneumoniae. At this time, just three weeks after discharge, she comes in with worsening chills and fever and cough without dyspnea. No headaches. No visual symptoms. No chest pain. She endorses pain in the upper segments of the abdomen. No diarrhea or constipation. No genitourinary symptoms. No neurological symptoms. Denies any choking spells. PAST MEDICAL HISTORY: Type 1 diabetes, asthma, prior episode of severe thrombocytopenia, negative TOMMIE, negative HIV serology, pyelonephritis episode, laryngitis, periodontal infection with mandibular abscess, influenza with episode of pneumonia secondary to Streptococcus pneumoniae with bacteremia in January 2019. SOCIAL HISTORY: Lives in the area. Never smoker. No other significant drug use. Lives with family. ALLERGIES: PENICILLIN WITH RASH. FAMILY HISTORY: Noncontributory. CURRENT MEDICATIONS: 1. Vancomycin. 2. Cefepime. 3. Albuterol. 4. Insulin. PHYSICAL EXAMINATION: VITAL SIGNS: T-max 99.1, now 97.5, blood pressure 144/80, pulse 97, respirations 16, O2 saturation 97. SKIN: Without any petechiae or purpura. Peripheral IV access. GENERAL: The patient is voiding in the toilet. LYMPH: No lymphadenopathy. HEENT: Ocular movements conjugate, appears in no distress. Sclerae white. Pupils are 2 mm and reactive. Oral cavity, numerous teeth in place in fairly decent shape. NECK: Supple. No jugular vein distention or carotid bruits. LUNGS: With diminished breath sounds in the left side. Crackles at the base on the right side. Expiratory rhonchi noticed in the anterior segment of both hemithoraces. HEART: S1 and S2. Regular rate without murmurs. No S3 or S4. ABDOMEN: Soft with mild tenderness in the upper segments. No guarding. No organomegaly or ascites. No bladder distention. MUSCULOSKELETAL: No joint inflammatory activity. Moves extremities equally. NEUROLOGICAL: Cognitive function, the patient is awake, alert, oriented. Follows commands. Recollection is little bit limited. She has a limited vocabulary, and may have some chronic cognitive issues. LABORATORY DATA: Current labs; the white cell count is down to 2.7, hemoglobin 6.3 with MCV 87, platelets 66,000. Sodium 138, creatinine 1.2, bilirubin 0.5, AST 51, ALT less than 7, alkaline phosphatase 55, albumin 3.4, globulin 3.1, lipase. Urinalysis was normal. Microbiology with pending blood cultures, thus far no growth. Influenza A and B negative. Urine culture thus far no growth. Chest x-ray with dense infiltrate in the left lower lobe. ASSESSMENT: 1. Type 1 diabetes with prior episode of diabetic ketoacidosis. 2. Recent episode of influenza with Streptococcus pneumoniae bacteremia with pneumonia, associated with influenza infection. 3. Other infectious processes noted above. 4. Dense subsegmental pneumonia, left side, some element on the right side, community-acquired. DISCUSSION: The patient has underlying asthma, may have had another viral infection that was not identified. Influenza antigen tests are notoriously poorly sensitive and we will go and submit a repeat respiratory virus PCR panel. Continue antimicrobial therapy. Check Legionella and strep pneumoniae antigen again. Check immunoglobulin quantitation and complement levels. Job ID: [id number] MTDD
[2019-03-03 11:57] VITALS: BP 119/58; TEMP 98.3
--- NOTE | 2019-03-03 16:17 | CON ---
DATE OF CONSULTATION: 03/01/2019 REASON FOR CONSULTATION: Pancytopenia associated with fever and probable pneumonia. HISTORY OF PRESENT ILLNESS: The patient is well known to our service, having been followed in our office since at least 2011 for pancytopenia of unclear etiology. She has had splenomegaly and thrombocytopenia and carries a diagnosis of possible steatohepatitis, although multiple imaging procedures have failed to clearly document a fatty liver. She has had a long history of diffuse adenopathy, all nodes being less than about 2 cm. She has been treated for a platelet count of less than 10,000 with improvement thought to be secondary to ITP. 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 She has had multiple infections including facial cellulitis, pyelonephritis, a mandibular abscess, and influenza apparently earlier this year. She also had an episode of Streptococcus pneumoniae bacteremia in early February and was treated with antibiotics at that time. This is all superimposed upon diabetes mellitus and a history of an obstructed kidney with possible pyelonephritis in the past. At this time, she developed worsening chills and fever and was admitted for further evaluation. Nothing has grown from cultures and she has remained afebrile on antibiotics. Laboratory studies on admission showed a white blood cell count 3.3, hemoglobin 7.8, and platelet count 98,000. The white blood cell differential was left-shifted with only four bands, but metamyelocytes and nucleated red cells were identified. Platelet count has remained in the 60,000 to 90,000 range, but she did require a red cell transfusion for a falling hemoglobin of 6.3. Chemistries have shown a poorly controlled blood sugar, but cultures remain negative. There is no evidence of influenza at this time. I am asked to see the patient provide further management recommendations regarding the pancytopenia. ALLERGIES: NONE. MEDICATIONS: 1. Insulin. 2. Ranitidine. 3. Ventolin inhaler. 4. P.R.N. Tylenol. PAST MEDICAL HISTORY: She has a history of diabetes mellitus. PAST SURGICAL HISTORY: No significant operations. FAMILY HISTORY: The patient's father of cirrhosis. PERSONAL AND SOCIAL HISTORY: She has been mentally challenge since and is cared for by her mother. She does not smoke or use alcohol. She does not use illicit drugs. REVIEW OF SYSTEMS: She does complain of right upper chest discomfort over the supraclavicular joint. Otherwise, except for some cough, she has no significant cardiopulmonary, GI, , musculoskeletal, or neurological complaints. PHYSICAL EXAMINATION: VITAL SIGNS: Temperature 97.5, respirations 16, pulse 105 and regular, and blood pressure 144/80. GENERAL: The patient is well developed and well nourished, sitting up on her bed. She converses normally and is alert and oriented. HEENT: The extraocular movements are intact. Are pupils equal, round, and reactive to light. NECK: Supple. LUNGS: Clear. CARDIOVASCULAR: Regular rate and rhythm without murmur or gallop or click. ABDOMEN: No tenderness, organomegaly, masses, bruits, or ascites. EXTREMITIES: No clubbing, cyanosis, or edema. SKIN: Normal. LYMPH: No adenopathy. MUSCULOSKELETAL: No active arthritis; there is tenderness overlying the right sternoclavicular joint NEUROLOGIC: No focal findings and the cranial nerves 2 through 12 are grossly intact. LABORATORY DATA: See history of present illness. IMAGING: A chest x-ray shows left upper lobe consolidation, which was also confirmed on a chest CT scan. The chest CT scan did show stable, but extensive mediastinal adenopathy with the largest node being 1.9 cm. The spleen is enlarged and measures 16.6 cm in maximum dimension. IMPRESSION: 1. Chronic pancytopenia associated with splenomegaly. 2. Recurrent infection including skin and pulmonary sources. 3. Tender right sternoclavicular joint. RECOMMENDATIONS: The patient has chronic pancytopenia and I would recommend continuing transfusion only as needed. Infectious Disease consultation has been recommended and I am in agreement with that. She will be followed as an outpatient and I will discuss the case with her primary asphalt tamper, Dr. oCtto. Thanks very much for allowing me to provide more recommendations. Job ID: [id number] MTDD
--- NOTE | 2019-03-04 00:20 | DIS ---
DATE OF ADMISSION: 02/28/2019 DATE OF DISCHARGE: 03/03/2019 DISCHARGE DIAGNOSES: 1. Recurrent pneumonia. 2. Chronic pancytopenia with splenomegaly. 3. Developmental delay. 4. Positive testing for rhinovirus. 5. Dermatitis. 6. Volume depletion. 7. History of asthma. 8. Chronic kidney disease, stage 3. 9. Type 2 diabetes. 10. Mild hyperkalemia. HISTORY OF PRESENT ILLNESS: This patient is a 28-year-old female with a history of developmental delay, who had previously been admitted to the hospital in January with a substantial infiltrative pneumonia, which was fairly bulky on imaging. She did have positive cultures for strep pneumoniae and she was treated aggressively with antibiotics and ultimately discharged on oral antibiotics. CT scan at the time of that original admission did also show some inflammatory changes at the sternoclavicular joint on the right, which was thought to possibly be traumatic in nature. The patient had some increasing cough and was brought to the hospital via the emergency department, where repeat x-ray showed persistent pneumonia and CTA of the chest showed persistent bulky infiltrate, although it was somewhat improved from the prior CT scan. HOSPITAL COURSE: The patient was admitted to the hospital, started on vancomycin and cefepime for the pneumonia. She required 1 unit of blood transfusion with packed red cells because of anemia related to her pancytopenia. She received fluid hydration and was seen in consultation by Dr. Giang. The patient subsequently developed some generalized pruritic edema and it was unclear if this was related to blood transfusion or the cefepime or vancomycin. On Dr. Giang' recommendations, these were discontinued and she was changed over to levofloxacin. She was seen in consultation by Hematology Oncology because of her chronic pancytopenia and there were no new recommendations other than trying to transfuse only when necessary given the chronicity of her disease and outpatient followup. The patient did continue to have some discomfort in her right arm and neck area, which seemed to be localized around the sternoclavicular joint. However, there was no evidence of active inflammation in the way of significant edema, erythema, or warmth. Dr. Giang speculated this could have been seeded with infection from her prior strep bacteremia and should respond to appropriate antibiosis. The patient clinically was substantially better. She was breathing comfortably, felt like she was completely at her baseline, and therefore was felt to be stable for discharge. PHYSICAL EXAMINATION: VITAL SIGNS: On the day of discharge, temperature is 98.3, pulse ranged from 82 to 112, respirations 16 to 20, O2 saturation 92% to 96% on room air, BP 119/58. GENERAL: She was awake and alert, in no distress. HEART: Regular rate and rhythm. LUNGS: Revealed bilateral scattered rales without significant wheezes. ABDOMEN: Soft, nontender, and nondistended. Positive bowel sounds. No masses. No organomegaly. EXTREMITIES: No edema. SKIN: Did show a very faint erythematous patchy dermatitis. DISPOSITION: She is discharged to home. ACTIVITY: As tolerated. DIET: She will remain on a diabetic diet. FOLLOWUP: She is to follow up with Dr. Rosa Vazquez, who received a [employer] message from me regarding the patient's general stay information. She is to follow up with Dr. Cotto on 03/12/2019 at 2:30. DISCHARGE MEDICATIONS: Include: 1. Levofloxacin 500 mg daily. 2. Tramadol 50 mg t.i.d. p.r.n. pain. 3. Echinacea 400 mg daily. 4. Tylenol No.3 p.r.n. She had this from previous admission. 5. Florastor 250 daily. 6. Ventolin HFA q.4 hours p.r.n. 7. Ranitidine 300 mg daily. 8. Fioricet 1 p.o. q.4 hours. 9. Lyrica 25 mg b.i.d. 10. Lantus 45 units subcu at bedtime. 11. Flonase 2 sprays per nostril daily. 12. Lantus SoloStar 50 units subcu q.a.m. 13. Dulera 200/5 two puffs b.i.d. 14. Singulair 10 mg at bedtime. 15. Folic acid one p.o. daily. 16. Robaxin t.i.d. p.r.n. 17. Guaifenesin p.r.n. She can return to the hospital anytime she feels the need to do so. She is encouraged to have labs checked within the next few days for reassessing her hyperkalemia and she is encouraged to have ample intake of water in order to address that. Discharge plan was discussed extensively with the patient's mother. All of her questions were answered. TIME SPENT: Total time in discharge activities was 40 minutes. Job ID: [id number]
--- NOTE | 2019-03-05 05:50 | PQF ---
[employer] RENU Duncan LITO MCCAULEY MD [id number] OPAL MACKENZIE [id number] CLINICAL DOCUMENTATION CLARIFICATION FORM: POST DISCHARGE Addendum to original discharge summary date: ____ Late entry note date: __ DATE: 03/05/2019 ATTN:LITO MCCAULEY MD Please exercise your independent, professional judgment in responding to the clarification form. Clinical indicators are provided on the bottom of this form for your review Please check appropriate box(s) to clarify if the following diagnosis has been ruled in or ruled out: SEPSIS___(CDI/Coding list diagnosis here) [ ] Ruled in diagnosis [ ] Continue to treat [ ] Resolved [ ] Ruled out diagnosis [ ] Cannot rule out diagnosis [x ] Other diagnosis Pneumonia without sepsis [ ] Unable to determine In addition, please specify: Present on Admission (POA): [ ] Yes [ ] No [ ] Unable to determine For continuity of documentation, please document condition throughout progress notes and discharge summary. Thank You. CLINICAL INDICATORS - SIGNS / SYMPTOMS / LABS admitted to [facility] for Sepsis - Documented in H&P on 02/28 by Marnie Ball MD WBC level 3.3 on 02/28 , 2.7 on 03/01 , 1.7 on 03/03 - Documented in Laboratory Pulse rate 119 on 02/28 , 122 on 03/01, 112 on 03/03 - Documented in Vital Signs Respiration rate 22 on 03/01 and 23 on 03/01 - Documented in Vital Signs BP 91/55 on 03/01 - Documented in Vital Signs RISK FACTORS Recurrent Pneumonia - Documented in H&P on 02/28 by Marnie Ball MD Positive testing for rhino virus - Documented in DS on 03/03 by LITO MCCAULEY MD TREATMENTS Azithromycin 500 mg - Medication report Rocephin 2 gm - Medication report Vancomycin IVPB - Medication report [employer] (This form is maintained as a part of the permanent medical record) 2014 [employer]. All Rights Reserved [email or web address] [not provided] MTDD
== END 2019-03-03 12:20 | disposition home or self-care (01) | DRG 194 ==
LOC: ERS 14:32 → ERHOLD 17:22 → IMCU/EMU 22:45 → 3SE 03-01 23:58
PROVIDERS: ADMIT Internal Medicine; ATTEND Internal Medicine
PROC: 30233N1 Transfusion of Nonautologous Red Blood Cells into Peripheral Vein, Percutaneous Approach (ICD-10-PCS; principal; 2019-02-28)
DX: J18.9 Pneumonia, unspecified organism (principal); D61.818 Other pancytopenia; D69.3 Immune thrombocytopenic purpura; E11.65 Type 2 diabetes mellitus with hyperglycemia; R62.50 Unspecified lack of expected normal physiological development in childhood; E66.9 Obesity, unspecified; N18.3 Chronic kidney disease, stage 3 (moderate); Z68.36 Body mass index [BMI] 36.0-36.9, adult; R16.1 Splenomegaly, not elsewhere classified; E11.22 Type 2 diabetes mellitus with diabetic chronic kidney disease; I12.9 Hypertensive chronic kidney disease with stage 1 through stage 4 chronic kidney disease, or unspecified chronic kidney disease; F03.90 Unspecified dementia, unspecified severity, without behavioral disturbance, psychotic disturbance, mood disturbance, and anxiety; E87.5 Hyperkalemia
CPT/HCPCS: 36415; 36416; 36430; 71045; 71275; 80048; 80053; 80202; 81003; 81025; 82805; 83010; 83605; 83615; 83690; 83735; 83880; 84484; 85025; 86160; 86850; 86900; 86901; 86922; 87040; 87086; 87449; 87633; 87804; 87899; 88184; J0456; J0692; J0696; J1815; J1956; J3370; J3475; J3490; J7611; J7620; P9016; Q0163; Q9967

== ENCOUNTER 2019-03-12 16:26 | Emergency (ER) | payer OTHER ==
[2019-03-12] MEDS ORDERED: Cyclobenzaprine 10 MG TAB ONE (17:29)
[2019-03-12 17:41] LABS: Hemoglobin 8.7 g/dL (12.0-16.0); Mean Corpuscular Hemoglobin 27.8 pg (27.0-31.0); Mean Corpuscular Volume 84.2 fL (78.0-98.0); Mean Platelet Volume 9.6 fL (7.4-10.4); Platelet Count 82 thou/uL (130-400); RBC Distribution Width 16.9 % (11.5-14.5); Red Blood Cell (RBC) Count 3.13 mill/uL (4.20-5.40)
[2019-03-12 18:03] LABS: Anisocytosis SLIGHT = 6-15 cells (100X) (0-5/hpf); Band 1 % (5-11); Eosinophils 5 % (0-10); Lymphocytes 30 % (21-51); MDiff Complete? YES; Monocytes 8 % (0-10); Neutrophil 56 % (42-75); Ovalocytes SLIGHT = 2-5 cells (100X) (0-1/hpf); Platelet Morphology Comment Appears Decreased; Polychromasia SLIGHT = 2-3 cells (100X) (0-2/hpf); Tear Drops SLIGHT = 2-5 cells (100X) (0-1/hpf); White Blood Cell (WBC) Count 2.8 thou/uL (4.8-10.8)
[2019-03-12 18:07] LABS: ALT (SGPT) 8 U/L (8-55); AST (SGOT) 15 U/L (5-34); Albumin 3.4 g/dL (3.5-5.0); Alkaline Phosphatase 67 U/L (40-110); Anion Gap 12 mmol/L (10-20); BUN (Urea Nitrogen) 19 mg/dL (7.0-18.7); Bilirubin, Total 0.3 mg/dL (0.2-1.2); CK (CPK) 31 U/L (29-168); Calc. Creatinine Clearance 0 mL/min (70-130); Calcium 8.2 mg/dL (7.8-10.44); Carbon Dioxide 23 mmol/L (22-29); Chloride 112 mmol/L (98-107); Estimated GFR-MDRD 49; Globulin 2.3 g/dL (2.4-3.5); Glucose 158 mg/dL (70-105); Potassium 4.1 mmol/L (3.5-5.1); Protein, Total 5.7 g/dL (6.0-8.3); Sodium 143 mmol/L (136-145)
--- NOTE | 2019-03-12 18:53 | RAD ---
THREE VIEWS RIGHT SHOULDER: 03/12/19 HISTORY: Right shoulder pain. COMPARISON: 01/30/19 FINDINGS: The coracoclavicular and acromioclavicular distances are within normal limits. No fracture or disloca tion seen involving the right shoulder. No other osseous abnormality. There has been no interval schumacher ge from prior exam. IMPRESSION: No acute osseous abnormality right shoulder. POS: [facility]
--- NOTE | 2019-03-12 20:52 | RAD ---
PORTABLE AP CHEST X-RAY 03/12/19 HISTORY: Cough. COMPARISON: 03/01/19. FINDINGS: There has been significant interval improvement in the large area of consolidation as well as interst itial and alveolar opacities involving predominantly the left upper lobe but also left lung base. Th ere is a linear area of minimal patchy density persisting in the left upper lobe which may be related to either minimal residual infiltrate or possibly scarring. The right lung is clear. The cardiac jerri houette and pulmonary vasculature are within normal limits. No other interval change. IMPRESSION: Linear and patchy density left upper lobe. There has been considerable improvement in consolidation c ompared to the prior study. Residual density may be related to either small persistent infiltrate or possibly secondary to mild scarring. The nodular prominence of the mediastinum has improved likely re lated to improvement in lymphadenopathy. Follow-up chest x-ray in [facility] POS: [facility]
== END 2019-03-12 19:59 | disposition home or self-care (01) ==
LOC: ERS 16:26
DX: M25.511 Pain in right shoulder (principal); R07.89 Other chest pain; M54.2 Cervicalgia; E11.9 Type 2 diabetes mellitus without complications; J45.909 Unspecified asthma, uncomplicated; D64.9 Anemia, unspecified; Z79.4 Long term (current) use of insulin; Z79.51 Long term (current) use of inhaled steroids; Z79.899 Other long term (current) drug therapy
CPT/HCPCS: 36415; 71046; 82550; 84484; 85025; 93005

== ENCOUNTER 2019-04-01 02:52 | Inpatient (IN) | payer OTHER ==
[2019-04-01] MEDS ORDERED: Azithromycin 500 MG VIAL ONE (04:59)
[2019-04-01] MEDS ORDERED: Ipratropium Bromide 2.5 ml Neb NEB PRN (05:31)
[2019-04-01] MEDS ORDERED: Dextrose 5% in Water 1,000 ML IV PRN (05:31)
[2019-04-01] MEDS ORDERED: Dextrose 50% Abboject 50 ML SYRINGE SLOW IVP PRN (05:31)
[2019-04-01] MEDS ORDERED: Thiamine 100 MG TAB PO SCH (06:00)
[2019-04-01] MEDS ORDERED: Lorazepam 2 MG/ML VIAL SLOW IVP SCH (06:00)
[2019-04-01 06:03] LABS: Troponin I 0.045 ng/mL (< 0.028)
[2019-04-01] MEDS: Ipratropium Bromide 2.5 ml Neb NEB SCH ×4 (07:54→19:58)
[2019-04-01] MEDS: Mometasone/Formoterol 120 PUFF INHALER INH SCH ×2 (07:55→20:00)
[2019-04-01] MEDS ORDERED: Lorazepam 2 MG/ML VIAL ONE (08:12)
[2019-04-01] MEDS ORDERED: Aspirin Chewable 81 MG TAB ONE ×2 (08:12→08:21)
[2019-04-01] MEDS ORDERED: Insulin Regular 300 UNITS/3 ML VIAL ONE (08:12)
[2019-04-01] MEDS ORDERED: Thiamine 100 MG TAB ONE (08:12)
[2019-04-01] MEDS: Aspirin 81 mg Enteric Coated Tablet PO SCH (08:25)
[2019-04-01] MEDS: Insulin Regular 300 UNITS/3 ML VIAL SC PRN ×2 (08:25→17:07)
[2019-04-01 08:37] LABS: Troponin I 0.024 ng/mL (< 0.028)
--- NOTE | 2019-04-01 08:38 | CT ---
PRELIMINARY REPORT/[facility]/EMERGENCY AFTER HOURS PROCEDURE: EXAM: CTA Chest with Intravenous Contrast CLINICAL HISTORY: Tachycardia/hypoxia ; F28 presented to the ED via the EMS transfered from [place] for PNA, elevated Troponin and dehydration. TECHNIQUE: Axial CTA images of the chest with intravenous contrast. MIP reconstructed images were created and re viewed. CONTRAST: With; ISOVUE 370, 60ML COMPARISON: None provided. FINDINGS: PULMONARY ARTERIES There is no intraluminal filling defect suspicious for PE. AORTA No thoracic aortic aneurysm or dissection. LUNGS Scattered multifocal infiltrates are present, most pronounced within the left upper lobe. PLEURAL SPACES No pleural effusion. No pneumothorax. HEART AND MEDIASTINUM No cardiomegaly. No significant pericardial effusion. LYMPH NODES There is mediastinal adenopathy. Radar Engineer largest lymph nodes were measured. Within the superio r mediastinum to the right of the trachea image #17 is 2.2 x 2.0 cm lymph node. Within the anterior m ediastinum image #31 is 1.5 x 2.0 cm lymph node. Subcarinal lymph node, image #42 measures 2.2 x 1.8 cm. There are prominent AP window lymph nodes. Right infraclavicular lymph node, image #21 measures 1 .2 x 1.8 cm. Left axillary lymph node, image #21 measures 1.8 x 1.1 cm. BONES No focal osseous abnormality or acute fracture. CHEST WALL AND UPPER ABDOMEN Spleen is enlarged measuring 15 cm in AP dimension. IMPRESSION: There is no PE. Multifocal infiltrates. Splenomegaly. Adenopathy. Enlargement of spleen and nodes may be reactive in nature. However, given their size, cannot exclude possibility of lymphoma. ELECTRONICALLY SIGNED BY: Lupe Rodriguez MD Apr 01, 2019 4:26:00 AM SALES CONSULTING DIRECTOR This report is intended for review by the ordering physician only, in accordance of law. If you recei ve this report in error, please call [facility] at [phone]. FINAL REPORT EMERGENCY AFTER HOURS CTA CHEST WITH CONTRAST: FINDINGS/IMPRESSION: I agree with the findings and impression given in the preliminary report per [facility] physici an. 1. No evidence of pulmonary thromboembolism. 2. Multifocal infiltrates. 3. There is extensive mediastinal adenopathy which appears to have worsened compared to the prior ex amination.
[2019-04-01 11:53] VITALS: BMI 35.2
[2019-04-01] MEDS ORDERED: Iopamidol 370 76% 100 ML VIAL ONE (13:30)
[2019-04-01 14:57] LABS: Troponin I 0.013 ng/mL (< 0.028)
--- NOTE | 2019-04-01 15:22 | HP ---
PRIMARY CARE PHYSICIAN: Dr. Rosa Vazquez. ONCOLOGIST: Dr. Cotto. CHIEF COMPLAINT: "I had pneumonia and I feel dehydrated and I heard all over." HISTORY OF PRESENT ILLNESS: Ms. Preciado is a very pleasant 28-year-old female, who was recently here in our facility about a month ago for pneumonia. She said that she was doing okay until last night when she started "running fever" and says that she could not eat or drink. She noticed a sore throat and also started having a cough. She says the cough was essentially nonproductive, but she did feel congested. She denied having any chest pain, but did complain of some shortness of breath. She also said that she vomited and had some diarrhea, but no vomiting of blood, no blood in the stools. She denies any sick contacts. However, she says she was just aching all over and generally did not feel well, and for this reason, she came to the emergency room. In the ER, she was evaluated and had a chest x-ray, which demonstrated a linear-like infiltrate in the left upper lobe. Her white blood cell count is higher than usual and she is being admitted for pneumonia. The patient denies any sick contacts. She lives with her mother and her mother is taking care of one of their grandchildren, who is 7 years old, but she says that grandchild is doing well. She has admitted to some headaches and feeling dizzy when she sits up and does admit to some generalized abdominal pain as well, but otherwise no other complaints. REVIEW OF SYSTEMS: All systems were reviewed and are negative except for that mentioned in the history of present illness. PAST MEDICAL HISTORY: Significant for diabetes mellitus type 2, pancytopenia, splenomegaly, asthma, moderate mental retardation, obesity, and chronic kidney disease. PAST SURGICAL HISTORY: She had a dental abscess and she says that she has a bone marrow biopsy planned by Dr. Cotto coming up in the next few weeks. ALLERGIES: BACTRIM, KEFLEX, LISINOPRIL, AND LOSARTAN AND SHE DOES NOT KNOW WHAT HAPPENS. FAMILY HISTORY: Significant for diabetes. SOCIAL HISTORY: She lives with her mother. She is a nonsmoker and nondrinker. No drug use. MEDICATIONS: These are taken from the ER records and includes; 1. Lantus insulin 60 units subcu twice daily. 2. Ranitidine 300 mg once a day. 3. Albuterol as needed. 4. Singulair 10 mg daily. 5. Lyrica 25 mg twice a day. 6. Flexeril 10 mg every 8 hours as needed. PHYSICAL EXAMINATION: GENERAL: She is alert and oriented. VITAL SIGNS: Her blood pressure is 119/72, heart rate 87, respiratory rate of 20, temperature is 99.7, O2 saturation is 88% on room air initially. HEENT: Pupils are equal, round, and reactive. Extraocular muscles are intact. Her sclerae, she did have some mild conjunctival injection on the right eye and then there was some greenish like exudate in that eye as well. Her tympanic membranes; they were pearly ivy, but she did have some fluid behind the drum on the right as well, but there was no bulging of the drum. Throat, there was no erythema, no exudates. Uvula was midline. NECK: No adenopathy. No bruits. LUNGS: She has wheezing throughout both of her lung marcelino and was unable to appreciate any rales. CARDIOVASCULAR: It was difficult to hear heart sounds, but from what I could tell, there was a normal S1 and S2. I did not appreciate an S3. No murmurs. ABDOMEN: Soft. She did have some diffuse tenderness. There is no evidence of gross organomegaly. EXTREMITIES: There is no edema. No calf tenderness. No joint effusions. NEUROLOGIC: The exam is grossly nonfocal. LABORATORY RESULTS: Her white count is 5.7, hemoglobin 9.9, hematocrit is 32.1, platelet count is 75. Her sodium is 138, potassium 4.7, chloride is 106, CO2 is 17, BUN of 21, creatinine 1.68, glucose is 139. She had a troponin of 0.045, and her urinalysis is significant for moderate blood. There was negative leukocyte esterase and 4 to 6 wbc's and 1+ bacteria. test was negative. IMAGING: Chest x-ray, she did have a normal heart size and a plaque-like infiltrate in the left upper lobe. There is no evidence of any effusion and the chest x-ray was poorly penetrated and this is by my reading. ASSESSMENT: This is a 28-year-old female, who presents with cough, shortness of breath, and wheezing. She was also hypoxic. She is being admitted with acute on chronic respiratory failure with hypoxemia due to both asthma exacerbation and pneumonia. 1. With regard to the pneumonia, she has recently been hospitalized with the same. At that time, the etiology was attributed to strep pneumonia and she was treated with Levaquin. We will go ahead and consider changing her to azithromycin and Rocephin, which should cover the strep pneumo. Should this be a recurrence, we will also check a viral panel in case if this is a viral pneumonia and she may require consultation with ID given the close proximity of her recent pneumonia. 2. Asthma exacerbation. We will place her on DuoNebs p.r.n. as well as a low dose of steroids. 3. Diabetes mellitus. We will need to reconcile and restart her diabetes medications as well as a sliding scale insulin. 4. Pancytopenia. The etiology which is unclear. It looks like she has had a workup in the past in reviewing her records and the plan is for her to proceed with a bone marrow biopsy in the outpatient setting. 5. DVT prophylaxis will be with SCDs given her low platelet values. Job ID: [id number]
[2019-04-01] MEDS: Lorazepam 2 MG/ML VIAL SLOW IVP PRN ×2 (18:42→23:59)
[2019-04-01] MEDS ORDERED: methylPREDNISolone Sod Succ/PF 125 MG/2 ML VIAL IVP SCH (21:00)
[2019-04-01 21:20] LABS: Troponin I Less than 0.010 ng/mL (< 0.028)
[2019-04-01] MEDS ORDERED: Sodium Chloride 0.9% 10 ML ONE ×2 (21:56→23:47)
[2019-04-01] MEDS ORDERED: methylPREDNISolone Sod Succ 40 MG VIAL IVP SCH (22:00)
[2019-04-01] MEDS: Montelukast Sodium 10 mg Tablet PO SCH (22:13)
[2019-04-01 23:47] LABS: Troponin I 0.014 ng/mL (< 0.028)
[2019-04-01] MEDS: Acetaminophen 325 MG TAB PO PRN (23:57)
[2019-04-02 00:22] LABS: Lactic Acid 0.7 mmol/L (0.5-2.2)
[2019-04-02 00:26] LABS: Anion Gap 15 mmol/L (10-20); BUN (Urea Nitrogen) 23 mg/dL (7.0-18.7); Calc. Creatinine Clearance 81 mL/min (70-130); Calcium 8.3 mg/dL (7.8-10.44); Carbon Dioxide 17 mmol/L (22-29); Chloride 108 mmol/L (98-107); Estimated GFR-MDRD 41; Glucose 158 mg/dL (70-105); Potassium 4.5 mmol/L (3.5-5.1); Sodium 135 mmol/L (136-145)
[2019-04-02 00:35] LABS: Band 8 % (5-11); Hemoglobin 8.6 g/dL (12.0-16.0); Hypochromia SLIGHT = 6-15 cells (100X) (0-5/hpf); Lymphocytes 20 % (21-51); MDiff Complete? YES; Mean Corpuscular HGB CONC 32.3 g/dL (32.0-36.0); Mean Corpuscular Hemoglobin 27.9 pg (27.0-31.0); Mean Corpuscular Volume 86.2 fL (78.0-98.0); Mean Platelet Volume 9.5 fL (7.4-10.4); Neutrophil 72 % (42-75); Platelet Count 58 thou/uL (130-400); Platelet Morphology Comment Appears Decreased; RBC Distribution Width 15.1 % (11.5-14.5); Red Blood Cell (RBC) Count 3.08 mill/uL (4.20-5.40); White Blood Cell (WBC) Count 2.2 thou/uL (4.8-10.8)
[2019-04-02] MEDS ORDERED: Sodium Chloride 0.9% 10 ML ONE (04:40)
[2019-04-02] MEDS: cefTRIAXone\\ROCEPHIN 1 GM in Sodium Chloride 0.9% 100 ML IVPB SCH (04:49)
[2019-04-02 06:13] LABS: #Lymphocytes 0.3 thou/uL (1.20-3.40); #Neutrophils 1.5 thou/uL (1.40-6.50); %Eosinophils 0.2 % (0.0-10.0); %Lymphocytes 17.4 % (21.0-51.0); %Monocytes 1.8 % (0.0-10.0); %Neutrophils 80.6 % (42.0-75.0); Hemoglobin 8.3 g/dL (12.0-16.0); Mean Corpuscular HGB CONC 32.6 g/dL (32.0-36.0); Mean Corpuscular Hemoglobin 28.3 pg (27.0-31.0); Mean Corpuscular Volume 86.8 fL (78.0-98.0); Mean Platelet Volume 9.7 fL (7.4-10.4); Platelet Count 70 thou/uL (130-400); RBC Distribution Width 15.1 % (11.5-14.5); Red Blood Cell (RBC) Count 2.93 mill/uL (4.20-5.40); White Blood Cell (WBC) Count 1.9 thou/uL (4.8-10.8)
[2019-04-02 06:25] LABS: Anion Gap 18 mmol/L (10-20); BUN (Urea Nitrogen) 29 mg/dL (7.0-18.7); Calc. Creatinine Clearance 82 mL/min (70-130); Calcium 8.2 mg/dL (7.8-10.44); Carbon Dioxide 14 mmol/L (22-29); Chloride 110 mmol/L (98-107); Estimated GFR-MDRD 41; Glucose 292 mg/dL (70-105); Potassium 5.3 mmol/L (3.5-5.1); Sodium 137 mmol/L (136-145)
[2019-04-02] MEDS: Insulin Regular 300 UNITS/3 ML VIAL SC PRN ×4 (06:31→21:33)
[2019-04-02] MEDS: Mometasone/Formoterol 120 PUFF INHALER INH SCH ×2 (06:38→20:14)
[2019-04-02] MEDS: Ipratropium Bromide 2.5 ml Neb NEB SCH ×5 (06:38→23:28)
[2019-04-02] MEDS ORDERED: Methocarbamol 500 MG TAB PO PRN (07:47)
[2019-04-02] MEDS ORDERED: guaiFENesin ER 600 MG TAB PO PRN (07:47)
[2019-04-02] MEDS ORDERED: Fioricet 325/50/40 mg Tablet PO PRN (07:47)
[2019-04-02 08:12] LABS: Hemoglobin A1c 5.6 % (4.0-6.0)
[2019-04-02] MEDS ORDERED: methylPREDNISolone Sod Succ 40 MG VIAL IVP SCH (09:00)
[2019-04-02] MEDS ORDERED: Non-Formulary Item 1 EACH (Insulin Glargine,Hum.Rec.Anlog [Lantus Solostar] 50 UNIT) SQ SCH (09:00)
[2019-04-02] MEDS ORDERED: Sodium Bicarbonate Tab 325 MG TAB PO SCH (09:00)
[2019-04-02] MEDS: Thiamine 100 MG TAB PO SCH (09:46)
[2019-04-02] MEDS: Saccharomyces boulardii 250 MG CAP PO SCH (09:46)
[2019-04-02] MEDS: Aspirin 81 mg Enteric Coated Tablet PO SCH (09:46)
[2019-04-02] MEDS: Azithromycin 250 MG TAB PO SCH (09:46)
[2019-04-02] MEDS: Folic Acid 1 MG TAB PO SCH (09:46)
[2019-04-02] MEDS: Insulin Glargine 50 UNITS in Pre-Filled Syringe 1 EACH SC SCH (09:47)
[2019-04-02] MEDS: Pregabalin 25 MG CAP PO SCH ×2 (09:48→21:35)
[2019-04-02 10:53] LABS: Creatinine, Urine 43.43 mg/dL (47-110); Microalbumin Urine 18.5 mg/dL (0.5-50.0)
--- NOTE | 2019-04-02 15:02 | PDOC.HOSPP ---
- Subjective Encounter Date: 04/02/19 Encounter Time: 14:59 Subjective: Ms. Preciado was seen today in follow-up of recurrent pneumonia. She says she is not feeling better. - Objective Vital Signs & Weight: Vital Signs (12 hours) Temp Pulse Resp BP Pulse Ox 04/02/19 11:29 97.6 F 98 22 H 111/57 L 100 04/02/19 11:00 112 H 20 04/02/19 07:43 97.9 F 98 22 H 116/58 L 95 04/02/19 06:38 120 H 20 04/02/19 03:45 98.4 F 100 32 H 114/57 L 95 Weight Weight 205 lb I&O: 04/01/19 04/02/19 04/03/19 06:59 06:59 06:59 Intake Total 760 Balance 760 Result Diagrams: 04/02/19 05:45 04/02/19 05:45 Additional Labs: Accuchecks 04/02/19 04/02/19 04/01/19 11:12 06:29 22:02 POC Glucose 372 H 326 H 155 H 04/01/19 16:51 POC Glucose 150 H Hospitalist ROS - Medication Medications: Active Medications Generic Name Dose Route Start Last Admin Trade Name Freq PRN Reason Stop Dose Admin Acetaminophen 650 mg 04/01/19 23:20 04/01/19 23:57 Tylenol PO 650 mg Q4H PRN Administration Headache/Fever or Pain Aspirin 81 mg 04/01/19 09:00 04/02/19 09:46 Ecotrin PO 81 mg DAILY KHAI Administration Azithromycin 250 mg 04/02/19 09:00 04/02/19 09:46 Zithromax PO 04/05/19 09:01 250 mg DAILY KHAI Administration Folic Acid 1 mg 04/02/19 09:00 04/02/19 09:46 Folvite PO 1 mg DAILY KHAI Administration Ceftriaxone Sodium 1 gm/ 100 mls @ 200 mls/hr 04/02/19 05:00 04/02/19 04:49 Sodium Chloride IVPB 04/05/19 05:29 100 mls Q24HR KHAI Administration Insulin Glargine 50 units/ 0.5 mls @ 0 mls/hr 04/02/19 09:00 04/02/19 09:47 Miscellaneous Medication SC 0.5 mls QAM KHAI Administration Insulin Human Regular 0 units 01/29/20 05:31 04/02/19 11:57 Humulin R SC 13 unit .AGGRESSIVE SLIDING PRN Administration Aggressive Correctional Scale Ipratropium [place] 2.5 ml 04/01/19 05:31 04/02/19 00:08 Atrovent NEB 2.5 ml [id number] PRN Administration SOB &/or Wheezing Lorazepam 1 mg 04/01/19 05:34 04/01/19 23:59 Ativan SLOW IVP 1 mg Q4H PRN Administration Anxiety/Agitation Methylprednisolone Sodium Succinate 40 mg 04/02/19 09:00 04/02/19 09:47 Solu-Medrol IVP 40 mg Q12HR KHAI Administration Mometasone Furoate/Formoterol Fumar 2 puff 04/01/19 06:30 04/02/19 06:38 Dulera 200 Mcg/5 Mcg Inhaler INH 2 puff BID-RT KHAI Administration Montelukast Sodium 10 mg 04/01/19 21:00 04/01/19 22:13 Singulair PO 10 mg QPM KHAI Administration Pregabalin 25 mg 04/02/19 09:00 04/02/19 09:48 Lyrica PO 25 mg BID KHAI Administration Saccharomyces Boulardii 250 mg 04/02/19 09:00 04/02/19 09:46 Florastor PO 250 mg DAILY KHAI Administration Sodium Bicarbonate 325 mg 04/02/19 09:00 04/02/19 09:46 Bicarbonate, Sodium PO 325 mg BID KHAI Administration Sodium Chloride 10 ml 04/02/19 09:00 04/02/19 09:47 Flush - Normal Saline IVF 10 ml Q12HR KHAI Administration Thiamine HCl 100 mg 04/02/19 09:00 04/02/19 09:46 Thiamine PO 100 mg DAILY KHAI Administration - Exam Eye: PERRL Heart: RRR, no murmur, no gallops, no rubs, normal peripheral pulses Respiratory: rales, wheezes Gastrointestinal: soft, non-tender, non-distended, normal bowel sounds, no palpable masses, no hepatomegaly Extremities: no cyanosis, no clubbing, 1+ LE edema Hosp A/P (1) Pneumonia Code(s): J18.9 - PNEUMONIA, UNSPECIFIED ORGANISM Status: Acute (2) CKD (chronic kidney disease), stage III Status: Chronic (3) Diabetes type 2, uncontrolled Code(s): E11.65 - TYPE 2 DIABETES MELLITUS WITH HYPERGLYCEMIA Status: Chronic (4) Pancytopenia Code(s): D61.818 - OTHER PANCYTOPENIA Status: Acute (5) Asthma Code(s): J45.909 - UNSPECIFIED ASTHMA, UNCOMPLICATED Status: Acute Qualifiers: Asthma complication type: unspecified - Plan * Recurrent pneumonia- continue IV antibiotics- her mother is concerned about the recurrent nature of these infections. Will consult Pulmonary to aid in evaluation * DM- blood glucose is elevated- likely due to steroids- will change to Prednisone, and continue the SSI * Chronic kidney disease- with metabolic acidosis- will consult Nephrology * Will check UA for Microalbumin * Asthma- with mild exacerbation- continue duonebs and steroids
[2019-04-02] MEDS: Acetaminophen 325 MG TAB PO PRN (15:39)
[2019-04-02] MEDS: Lorazepam 0.5 MG TAB PO PRN ×2 (15:39→22:20)
--- NOTE | 2019-04-02 16:46 | CON ---
DATE OF CONSULTATION: 04/02/2019 CONSULTING PHYSICIAN: Derrick Herzog MD REASON FOR CONSULTATION: Recurrent pneumonia. HISTORY OF THE PRESENT ILLNESS: Luly Preciado is a 28-year-old female, who comes to the hospital with fever, stating that she has pneumonia. I have been told this is at least her third hospitalization in the last 3 months for such. She tells me she had a temperature over 102 the day she came in. Her mother was not available except by phone. Her mother seems quite frustrated when I talked to her and said that she was contemplating having the patient sent to [place]. PAST MEDICAL HISTORY: 1. Diabetes mellitus type 2. 2. Pancytopenia. 3. Idiopathic thrombocytopenia. 4. Splenomegaly. 5. Asthma. 6. Moderate mental retardation. 7. Obesity. 8. Chronic kidney disease. PAST SURGICAL HISTORY: 1. Dental abscess. 2. Bone marrow biopsy. ALLERGIES: BACTRIM, KEFLEX, LISINOPRIL, AND LOSARTAN. FAMILY MEDICAL HISTORY: Remarkable for diabetes. SOCIAL HISTORY: Nonsmoker and nondrinker. Does not use illicit drugs. MEDICATIONS: Prior to admission, 1. Lantus insulin. 2. Ranitidine. 3. Albuterol. 4. Singulair. 5. Lyrica. 6. Flexeril. REVIEW OF SYSTEMS: Twelve-point review of systems is otherwise negative. PHYSICAL EXAMINATION: VITAL SIGNS: Temperature 97.6, pulse 116, respirations 20, O2 sat 100% on 2 L, and blood pressure 111/57. GENERAL: She is awake and alert. She is texting on her phone, does not appear to be in any overt distress. HEENT: She has class 4 Mallampati airway. She has no palpable lymphadenopathy along her neck. LUNGS: Clear to auscultation. CARDIAC: S1 and S2 regular. ABDOMEN: Soft and nontender. I cannot palpate spleen or liver. EXTREMITIES: No clubbing, cyanosis,or edema. LABORATORY DATA: White blood cell count 1.9, hemoglobin 8.3, hematocrit 25.4, and platelet count 70 with 72% neutrophils, 8% bands, no significant eosinophils, and 20% lymphocytes. Sodium 137, potassium 5.3, chloride 110, CO2 of 14, BUN 29, creatinine 1.5, and glucose 292. I reviewed her CT scan in detail. She does have an infiltrate in the left upper lobe compared to the end of February the infiltrate is actually better. One notable finding is significant lymphadenopathy in the subcarinal region, also in the right peritracheal region. ASSESSMENT: Recurrent pneumonia. The patient has had an extensive workup in the past, including negative HIV, negative hepatitis serologies, and negative autoimmune testing. However, despite this, lymphadenopathy appears to be getting worse. RECOMMENDATION: On reviewing the H and P, it seems like a bone marrow was being contemplated by Dr. Cotto. I would recommend consultation of Oncology further input on this. If tissue is needed from other locations, then I suppose the patient could have an EBUS-directed subcarinal biopsy by Dr. Mahajan or right peritracheal biopsy. Also, a mediastinoscopy would not be the question for the right peritracheal lymphadenopathy. Thank you for the referral. I will notify Dr. Mahajan of the patient's admission. Job ID: [id number]
[2019-04-02 17:26] LABS: Anion Gap 14 mmol/L (10-20); BUN (Urea Nitrogen) 43 mg/dL (7.0-18.7); Calc. Creatinine Clearance 64 mL/min (70-130); Calcium 8.5 mg/dL (7.8-10.44); Carbon Dioxide 17 mmol/L (22-29); Chloride 105 mmol/L (98-107); Estimated GFR-MDRD 31; Potassium 5.3 mmol/L (3.5-5.1); Sodium 131 mmol/L (136-145)
[2019-04-02 17:32] LABS: Glucose 590 mg/dL (70-105)
[2019-04-02 17:39] LABS: Actual Bicarbonate (HCO3v) 19 mEq/L (22-28); Base Excess -7.6 mEq/L (-2.0 to +3.0); Calcium, Ionized 1.16 mmol/L (1.16-1.32); Chloride (ABG LAB) 105 mmol/L (98-106); Potassium - ABG Lab 5.35 mmol/L (3.70-5.30); Sodium 131.2 mmol/L (133-146); pH (venous) 7.25 (7.32-7.43)
[2019-04-02] MEDS ORDERED: Sodium Chloride 0.9% 500 ML IV SCH (17:45)
[2019-04-02] MEDS: Sodium Chloride 0.9% 1,000 ML IV SCH (17:56)
[2019-04-02] MEDS: Montelukast Sodium 10 mg Tablet PO SCH (21:33)
[2019-04-02] MEDS: Sodium Bicarbonate Tab 325 MG TAB PO SCH (21:33)
[2019-04-02] MEDS: Insulin Glargine 45 UNITS in Pre-Filled Syringe 1 EACH SC SCH (21:33)
--- NOTE | 2019-04-02 21:59 | CON ---
DATE OF CONSULTATION: REASON FOR CONSULTATION: Metabolic acidosis. HISTORY OF PRESENT ILLNESS: This is a 28-year-old female admitted to the hospital with nausea and vomiting, was noted to have a creatinine of 1.5. Her baseline has ranged anywhere from 1- 2. The patient was also noted to have metabolic acidosis and was started on p.o. bicarbonate. The patient has had low bicarbonate on and off for many years. The patient's last reported blood gas was done about a month ago. The patient denies any nausea, vomiting, or chest pain. She has had diarrhea, PAST MEDICAL HISTORY: Diabetes mellitus, pancytopenia, ITP, splenomegaly, asthma, mental retardation, obesity, chronic kidney disease, dental abscess, bone marrow biopsy. ALLERGIES: REVIEWED. HOME MEDICATIONS: List reviewed. HOSPITAL MEDICATIONS: List reviewed. FAMILY HISTORY: Negative for ESRD. SOCIAL HISTORY: No alcohol or drug use. REVIEW OF SYSTEMS: 15-point review of systems was performed and negative except for positives noted above. GENERAL: HEAD: NECK: No swelling or lumps. NOSE: No epistaxis or discharge. EYES: No diplopia or pain. RESPIRATORY: CARDIOVASCULAR: GASTROINTESTINAL: /VALVE INSERTER: MUSCULOSKELETAL: No joint pain. NEUROPSYCHIATIC SYSTEMS: No suicidal ideation. No ideation. SKIN: Denies any rash or ulcer. CONSTITUTIONAL: No fever or chills. PHYSICAL EXAMINATION: CONSTITUTIONAL: The patient is awake, alert. VITAL SIGNS: Afebrile, pulse 116, breathing 16, blood pressure 111/57. GENERAL APPEARANCE AND MENTAL STATUS: Fair. HEAD/NECK: Normocephalic. Atraumatic. EYES: EOMI. No deformity. EARS: Clear. No ulcers. NOSE: Intact. No lesions. MOUTH: Clear. No discharge. THROAT: Clear. No exudate. LUNGS: Clear. No crackles. CARDIAC: S1, S2. No rub. ABDOMEN: Benign. Bowel sounds positive. GENITALIA/RECTUM: Nguyen absent. BACK/EXTREMITIES: Edema 0+. NEUROLOGICAL: Alert and motor intact. SKIN: LYMPHATICS: LABORATORY DATA: Reviewed. ASSESSMENT: 1. Acute kidney injury, CKD most likely due to decreased effective arterial blood volume. Metabolic acidosis would recommend getting blood gas and follow up on the serum ketones, as well as beta hydroxybutyric acid. I would also recommend ruling out ischemic bowel. No urgent indication for dialysis. 2. Hypertension, stable. 3. Anemia, stable. 4. Medication based on GFR appropriate. 5. Diarrhea aggressive hydration. 6. Hyperkalemia due to hyperglycemia and acidosis. Job ID: [id number] [facility]
[2019-04-03] MEDS: Ipratropium Bromide 2.5 ml Neb NEB SCH ×6 (03:57→23:05)
[2019-04-03] MEDS: cefTRIAXone\\ROCEPHIN 1 GM in Sodium Chloride 0.9% 100 ML IVPB SCH (04:48)
[2019-04-03] MEDS: Insulin Regular 300 UNITS/3 ML VIAL SC PRN ×3 (06:06→16:07)
[2019-04-03] MEDS: Mometasone/Formoterol 120 PUFF INHALER INH SCH ×2 (06:22→19:31)
[2019-04-03 06:31] LABS: Anion Gap 11 mmol/L (10-20); BUN (Urea Nitrogen) 43 mg/dL (7.0-18.7); Calc. Creatinine Clearance 71 mL/min (70-130); Calcium 8.4 mg/dL (7.8-10.44); Carbon Dioxide 20 mmol/L (22-29); Chloride 109 mmol/L (98-107); Estimated GFR-MDRD 35; Glucose 476 mg/dL (70-105); Potassium 5.4 mmol/L (3.5-5.1); Sodium 135 mmol/L (136-145)
[2019-04-03 06:35] LABS: Band 5 % (5-11); Lymphocytes 28 % (21-51); MDiff Complete? YES; Mean Corpuscular HGB CONC 31.5 g/dL (32.0-36.0); Mean Corpuscular Hemoglobin 27.5 pg (27.0-31.0); Mean Corpuscular Volume 87.5 fL (78.0-98.0); Monocytes 9 % (0-10); Neutrophil 58 % (42-75); Nucleated RBC 1 % (0); Platelet Count 70 thou/uL (130-400); Platelet Morphology Comment Appears Decreased; RBC Distribution Width 15.1 % (11.5-14.5); Red Blood Cell (RBC) Count 2.89 mill/uL (4.20-5.40); White Blood Cell (WBC) Count 1.3 thou/uL (4.8-10.8)
[2019-04-03] MEDS ORDERED: predniSONE 20 MG TAB PO SCH (08:00)
[2019-04-03] MEDS: Thiamine 100 MG TAB PO SCH (10:07)
[2019-04-03] MEDS: Aspirin 81 mg Enteric Coated Tablet PO SCH (10:07)
[2019-04-03] MEDS: Folic Acid 1 MG TAB PO SCH (10:07)
[2019-04-03] MEDS: Sodium Bicarbonate Tab 325 MG TAB PO SCH ×3 (10:07→21:51)
[2019-04-03] MEDS: Azithromycin 250 MG TAB PO SCH (10:07)
[2019-04-03] MEDS: Saccharomyces boulardii 250 MG CAP PO SCH (10:07)
[2019-04-03] MEDS: Sodium Chloride 0.9% 1,000 ML IV SCH (10:08)
[2019-04-03] MEDS: Insulin Glargine 50 UNITS in Pre-Filled Syringe 1 EACH SC SCH (10:08)
[2019-04-03] MEDS: Lorazepam 0.5 MG TAB PO PRN ×2 (10:13→20:04)
--- NOTE | 2019-04-03 10:15 | PRG ---
DATE OF SERVICE: 04/03/2019 SUBJECTIVE: A 28-year-old female being seen for acute kidney injury. The patient denies any nausea, vomiting, or chest pain, but has had diarrhea. OBJECTIVE: CONSTITUTIONAL: The patient is awake and alert. VITAL SIGNS: Pulse 106, breathing 16, blood pressure 121/52. GENERAL APPEARANCE AND MENTAL STATUS: Fair. HEAD/NECK: Normocephalic. Atraumatic. EYES: EOMI. No deformity. EARS: Clear. No ulcers. NOSE: Intact. No lesions. MOUTH: Clear. No discharge. THROAT: Clear. No exudate. LUNGS: Clear. No crackles. CARDIAC: S1, S2. No rub. ABDOMEN: Benign. Bowel sounds positive. GENITALIA/RECTUM: Nguyen absent. BACK/EXTREMITIES: Edema 0+. NEUROLOGICAL: Alert and motor intact. SKIN: LYMPHATICS: LABORATORY DATA: Labs show hemoglobin is 8, potassium is 5.4, creatinine 1.7. ASSESSMENT AND PLAN: 1. Acute kidney injury chronic kidney disease, improved. 2. Hypertension, stable. 3. Anemia, stable. 4. Hyperkalemia because of her hyperglycemia. Would recommend IV fluids and insulin therapy. We will recheck potassium again in a few hours. 5. Medication based on GFR appropriate. Job ID: [id number]
[2019-04-03] MEDS: Pregabalin 25 MG CAP PO SCH ×2 (11:39→21:49)
[2019-04-03 12:15] LABS: Anion Gap 12 mmol/L (10-20); BUN (Urea Nitrogen) 41 mg/dL (7.0-18.7); Calc. Creatinine Clearance 70 mL/min (70-130); Calcium 8.3 mg/dL (7.8-10.44); Carbon Dioxide 19 mmol/L (22-29); Chloride 110 mmol/L (98-107); Estimated GFR-MDRD 35; Glucose 458 mg/dL (70-105); Potassium 4.8 mmol/L (3.5-5.1); Sodium 136 mmol/L (136-145)
--- NOTE | 2019-04-03 14:08 | PDOC.HOSPP ---
- Subjective Encounter Date: 04/03/19 Encounter Time: 14:07 Subjective: Ms. Preciado was seen today in follow-up of recurrent pneumonia and panctoypenia. She says she continues to feel " awful". She continues to have a cough, and wheezing. - Objective Vital Signs & Weight: Vital Signs (12 hours) Temp Pulse Resp BP Pulse Ox 04/03/19 11:28 97.6 F 100 22 H 129/59 L 98 04/03/19 10:09 103 H 16 100 04/03/19 08:00 90 L 04/03/19 07:52 97.7 F 106 H 22 H 121/58 L 95 04/03/19 06:25 89 16 99 04/03/19 06:22 89 16 99 04/03/19 04:00 96 04/03/19 03:57 96 Weight Weight 205 lb I&O: 04/02/19 04/03/19 04/04/19 06:59 06:59 06:59 Intake Total 760 620 Balance 760 620 Result Diagrams: 04/03/19 05:46 04/03/19 11:45 Additional Labs: Accuchecks 04/03/19 04/03/19 04/03/19 13:32 11:22 06:06 POC Glucose 363 H 459 H 450 H 04/02/19 04/02/19 21:17 16:47 POC Glucose 515 H Greater than 550 H* Hospitalist ROS - Medication Medications: Active Medications Generic Name Dose Route Start Last Admin Trade Name Freq PRN Reason Stop Dose Admin Acetaminophen 650 mg 04/01/19 23:20 04/02/19 15:39 Tylenol PO 650 mg Q4H PRN Administration Headache/Fever or Pain Aspirin 81 mg 04/01/19 09:00 04/03/19 10:07 Ecotrin PO 81 mg DAILY KHAI Administration Azithromycin 250 mg 04/02/19 09:00 04/03/19 10:07 Zithromax PO 04/05/19 09:01 250 mg DAILY KHAI Administration Folic Acid 1 mg 04/02/19 09:00 04/03/19 10:07 Folvite PO 1 mg DAILY KHAI Administration Ceftriaxone Sodium 1 gm/ 100 mls @ 200 mls/hr 04/02/19 05:00 04/03/19 04:48 Sodium Chloride IVPB 04/05/19 05:29 100 mls Q24HR KHAI Administration Insulin Glargine 45 units/ 0.45 mls @ 0 mls/hr 04/02/19 21:00 04/02/19 21:33 Miscellaneous Medication SC 0.45 mls HS KHAI Administration Sodium Chloride 1,000 mls @ 75 mls/hr 04/02/19 17:45 04/03/19 10:08 Normal Saline 0.9% IV 1,000 mls .[id number] KHAI Administration Insulin Human Regular 0 units 04/01/19 05:31 04/03/19 11:31 Humulin R SC 13 unit .AGGRESSIVE SLIDING PRN Administration Aggressive Correctional Scale Ipratropium [place] 2.5 ml 04/01/19 05:31 04/02/19 00:08 Atrovent NEB 2.5 ml [id number] PRN Administration SOB &/or Wheezing Ipratropium [place] 2.5 ml 04/02/19 18:30 04/03/19 10:09 Atrovent NEB 2.5 ml [id number] KHAI Administration Lorazepam 0.5 mg 04/02/19 15:09 04/03/19 10:13 Ativan PO 0.5 mg Q4H PRN Administration Anxiety Mometasone Furoate/Formoterol Fumar 2 puff 04/01/19 06:30 04/03/19 06:22 Dulera 200 Mcg/5 Mcg Inhaler INH 2 puff BID-RT KHAI Administration Montelukast Sodium 10 mg 04/01/19 21:00 04/02/19 21:33 Singulair PO 10 mg QPM KHAI Administration Pregabalin 25 mg 04/02/19 09:00 04/03/19 11:39 Lyrica PO 25 mg BID KHAI Administration Saccharomyces Boulardii 250 mg 04/02/19 09:00 04/03/19 10:07 Florastor PO 250 mg DAILY KHAI Administration Sodium Bicarbonate 975 mg 04/02/19 21:00 04/03/19 10:07 Bicarbonate, Sodium PO 975 mg TID KHAI Administration Sodium Chloride 10 ml 04/02/19 09:00 04/03/19 10:09 Flush - Normal Saline IVF 10 ml Q12HR KHAI Administration Thiamine HCl 100 mg 04/02/19 09:00 04/03/19 10:07 Thiamine PO 100 mg DAILY KHAI Administration - Exam Eye: PERRL Heart: RRR, no murmur, no gallops, no rubs, normal peripheral pulses Respiratory: wheezes (+ bilateral wheezing, and rhonchi, no rales) Gastrointestinal: soft, non-tender, non-distended, normal bowel sounds, no palpable masses Extremities: no cyanosis, no edema Hosp A/P (1) Pneumonia Code(s): J18.9 - PNEUMONIA, UNSPECIFIED ORGANISM Status: Acute (2) CKD (chronic kidney disease), stage III Status: Chronic (3) Diabetes type 2, uncontrolled Code(s): E11.65 - TYPE 2 DIABETES MELLITUS WITH HYPERGLYCEMIA Status: Chronic (4) Pancytopenia Code(s): D61.818 - OTHER PANCYTOPENIA Status: Acute (5) Asthma Code(s): J45.909 - UNSPECIFIED ASTHMA, UNCOMPLICATED Status: Acute Qualifiers: Asthma complication type: unspecified - Plan * Recurrent pneumonia- continue IV antibiotics- case discussed with Dr. Clemons - he will also discuss with Dr. Mahajan who has seen the patient before as well. She could benefit from biopsy of the subcarinal nodes, as well as potentially the mediastinal nodes. Will also consult Oncology to see if the bone marrow biopsy can be performed during this hospital stay as well. This has been discussed with the patient's mother as well * DM- blood glucose is elevated- likely due to steroids- Steroids have been discontinued- and will continue to titrate her insulin, and add a short acting scheduled insulin with her meals * Chronic kidney disease- with metabolic acidosis- this is a non AG metabolic acidosis which has been present for a number of years. She could have a type 4 RTA- discussed with Nephrology. will continue with Bicarb supplementation * Asthma- with mild exacerbation- continue duonebs and discontinue steroids due to elevated blood glucose
[2019-04-03] MEDS: Acetaminophen 325 MG TAB PO PRN ×2 (17:07→23:19)
--- NOTE | 2019-04-03 18:25 | PRG ---
DATE OF SERVICE: 04/03/2019 SERVICE: Pulmonary Medicine. INTERVAL HISTORY: The patient is doing fine from respiratory standpoint. She indicates that she is breathing better. She is looking forward to having her bone marrow performed. Otherwise, there has been no interval change to her condition. It is my understanding that the bone marrow biopsy is being planned for Saturday. PHYSICAL EXAMINATION: VITAL SIGNS: Afebrile, pulse 100, blood pressure 129/59, respirations 22, saturation 98%, currently on room air. GENERAL: The patient is awake and alert, in no apparent distress. LUNGS: Good air entry. There is a prolonged expiratory phase with small amount of polyphonic wheezing present. No rhonchi or crackles are appreciated otherwise. HEART: Normal rate. Regular. ABDOMEN: Soft, nontender, and nondistended. Bowel sounds are positive. MUSCULOSKELETAL: No cyanosis or clubbing. There is no pitting in the bilateral lower extremities. NEUROLOGIC: Grossly nonfocal. LABORATORY DATA: WBC 1.3, hemoglobin 8.0, platelets 70,000, neutrophil count is 58%. PH 7.25, pCO2 of 44, pO2 of 37. Creatinine 1.73 and roughly stable. Baseline 1.2. Basic metabolic profile is otherwise unremarkable. Calcium 8.3. Beta-hydroxybutyrate 0.38. C diff antigen and toxin are unremarkable. ASSESSMENT: 1. Acute hypoxic respiratory failure, resolved. 2. Asthma with acute exacerbation, improving. 3. Pulmonary infiltrate with mediastinal lymphadenopathy. 4. Pancytopenia. 5. Herpes labialis. DISCUSSION AND PLAN: The patient is doing fine from respiratory standpoint. I will work on setting the endoscopic bronchial ultrasound and bronchoscopy up for Saturday. Her appetite is adequate. As such, IV fluids will be interrupted. She has herpes breaking out around the lips and a brief course of acyclovir will be initiated. Pulmonary/Critical Care will follow along. Job ID: [id number] [facility]
[2019-04-03] MEDS: HumaLOG 300 UNITS/3 ML VIAL SC SCH (18:28)
[2019-04-03] MEDS: Acyclovir 400 mg Tablet PO SCH ×2 (20:04→23:20)
[2019-04-03] MEDS ORDERED: Insulin Glargine 12 UNITS in Pre-Filled Syringe SC SCH (21:00)
[2019-04-03] MEDS: Insulin Glargine 45 UNITS in Pre-Filled Syringe 1 EACH SC SCH (21:52)
[2019-04-03] MEDS: Montelukast Sodium 10 mg Tablet PO SCH (21:54)
--- NOTE | 2019-04-03 22:56 | CON ---
DATE OF CONSULTATION: REASON FOR CONSULT: Pancytopenia. HISTORY OF PRESENT ILLNESS: Ms. Preciado is a 28-year-old female with longstanding history of pancytopenia who over the last several months has had multiple admissions for fever and pneumonia. She was last admitted in late February. She had a CT scan at that time, which showed pulmonary infiltrates and significant lymphadenopathy not noted in earlier CT scans. She did have a flow cytometry drawn at that time, which was negative for any abnormalities. She had a followup appointment with Dr. Cotto on March 26 and did not show up for her visit. Dr. Cotto called her mother and a bone marrow was set up for April 07 in the outpatient setting. The patient had a fever of 102 yesterday with a cough and presented to the emergency room for evaluation. She had an infiltrate in the left upper lobe. She again had lymphadenopathy in the mediastinum with the largest measuring 2.2 x 2.0 cm. The patient has been started on antibiotics. She was seen at bedside. History was reviewed and I spoke with her mother via telephone. PAST MEDICAL HISTORY: 1. Pancytopenia felt to be from splenomegaly secondary to steatohepatitis. 2. Hemolytic anemia. 3. Asthma. 4. Diabetes. 5. Recurrent pneumonia. 6. History of herpes zoster. PAST SURGICAL HISTORY: None. ALLERGIES: TO BACTRIM, KEFLEX, LISINOPRIL AND LOSARTAN. HOME MEDICATIONS: 1. Flonase. 2. Lantus. 3. Lyrica. 4. Ranitidine. 5. Folic acid. 6. Singulair. 7. Florastor. 8. Ventolin inhaler. FAMILY HISTORY: Father of cirrhosis. SOCIAL HISTORY: Mentally challenged since . Lives with her mother. No alcohol, tobacco, or illicit drug use. REVIEW OF SYSTEMS: Positive for cough. Otherwise, negative. PHYSICAL EXAMINATION: VITAL SIGNS: Temperature is 97.6, pulse is 108, respiratory rate 16, BP is 129/59, she is 99% on room air. GENERAL: This is a well-developed, well-nourished female, in no acute distress. HEENT: Normocephalic, atraumatic. Pupils are equal and reactive to light. NECK: Supple. CV: Regular rate and rhythm. LUNGS: She has a scattered wheezing throughout. ABDOMEN: Obese, nontender. Bowel sounds are positive. EXTREMITIES: No clubbing or cyanosis. SKIN: No rash. HEMATOLOGICAL: No petechiae or purpura. PERTINENT LABS AND X-RAYS: Current WBCs are 1.3, hemoglobin 8.0, hematocrit 25.3, platelet count is 70,000, she has 58% neutrophils, 5% bands, 28% lymphocytes. Sodium is 136, potassium 4.8, chloride 110, CO2 is 19, BUN is 41, creatinine 1.73, glucose is 458, calcium is 8.3. Radiology per HPI. ASSESSMENT: 1. Chronic pancytopenia with new mediastinal lymphadenopathy. 2. Recurrent pneumonia. 3. Poorly controlled diabetes. 4. History of hemolytic anemia. DISCUSSION: The patient failed to show for her last appointment. She was notified by the telephone and scheduled for an outpatient bone marrow biopsy, which was scheduled for April 07. She has been admitted for recurrent pneumonia and acute kidney injury. She is on IV fluids and antibiotics. Should she improve over the weekend need and be discharged home, she can follow up at the outpatient scheduled bone marrow biopsy. Otherwise, plan on a bone marrow biopsy on Saturday. I did speak with the patient's mother. She wishes to proceed. Thank you for the consult. Job ID: [id number]
[2019-04-04] MEDS: Ipratropium Bromide 2.5 ml Neb NEB SCH ×6 (03:10→22:31)
[2019-04-04] MEDS: Mometasone/Formoterol 120 PUFF INHALER INH SCH ×2 (03:10→18:49)
[2019-04-04] MEDS: cefTRIAXone\\ROCEPHIN 1 GM in Sodium Chloride 0.9% 100 ML IVPB SCH (05:23)
[2019-04-04 06:38] LABS: Anion Gap 14 mmol/L (10-20); BUN (Urea Nitrogen) 36 mg/dL (7.0-18.7); Calc. Creatinine Clearance 87 mL/min (70-130); Calcium 8.2 mg/dL (7.8-10.44); Carbon Dioxide 16 mmol/L (22-29); Chloride 115 mmol/L (98-107); Estimated GFR-MDRD 44; Glucose 135 mg/dL (70-105); Potassium 4.5 mmol/L (3.5-5.1); Sodium 140 mmol/L (136-145)
[2019-04-04 07:16] LABS: Anisocytosis SLIGHT = 6-15 cells (100X) (0-5/hpf); Band 1 % (5-11); Hemoglobin 8.4 g/dL (12.0-16.0); Lymphocytes 46 % (21-51); MDiff Complete? YES; Mean Corpuscular HGB CONC 31.5 g/dL (32.0-36.0); Mean Corpuscular Hemoglobin 27.5 pg (27.0-31.0); Mean Corpuscular Volume 87.3 fL (78.0-98.0); Mean Platelet Volume 9.2 fL (7.4-10.4); Monocytes 2 % (0-10); Neutrophil 51 % (42-75); Platelet Count 89 thou/uL (130-400); Platelet Morphology Comment Appears Decreased; RBC Distribution Width 15.3 % (11.5-14.5); Red Blood Cell (RBC) Count 3.06 mill/uL (4.20-5.40); White Blood Cell (WBC) Count 2.3 thou/uL (4.8-10.8)
[2019-04-04] MEDS ORDERED: INSULIN GLARGINE SC SCH (09:00)
[2019-04-04] MEDS ORDERED: PRE FILLED SC SCH (09:00)
[2019-04-04] MEDS: Aspirin 81 mg Enteric Coated Tablet PO SCH (09:13)
[2019-04-04] MEDS: Azithromycin 250 MG TAB PO SCH (09:14)
[2019-04-04] MEDS: Folic Acid 1 MG TAB PO SCH (09:15)
[2019-04-04] MEDS: Thiamine 100 MG TAB PO SCH (09:16)
[2019-04-04] MEDS: Acyclovir 400 mg Tablet PO SCH ×4 (09:17→22:15)
[2019-04-04] MEDS: Saccharomyces boulardii 250 MG CAP PO SCH (09:17)
[2019-04-04] MEDS: Sodium Bicarbonate Tab 325 MG TAB PO SCH ×3 (09:20→22:14)
[2019-04-04] MEDS: Pregabalin 25 MG CAP PO SCH ×2 (11:22→22:15)
--- NOTE | 2019-04-04 11:47 | PRG ---
DATE OF SERVICE: 04/04/2019 SUBJECTIVE: A 28-year-old female being seen for acute kidney injury. The patient denied nausea, vomiting, or chest pain. OBJECTIVE: CONSTITUTIONAL: The patient is awake and alert. VITAL SIGNS: Afebrile, pulse 75, breathing 16, blood pressure was 122/62. GENERAL APPEARANCE AND MENTAL STATUS: Fair. HEAD/NECK: Normocephalic. Atraumatic. EYES: EOMI. No deformity. EARS: Clear. No ulcers. NOSE: Intact. No lesions. MOUTH: Clear. No discharge. THROAT: Clear. No exudate. LUNGS: Clear. No crackles. CARDIAC: S1, S2. No rub. ABDOMEN: Benign. Bowel sounds positive. GENITALIA/RECTUM: Nguyen absent. BACK/EXTREMITIES: Edema 0+. NEUROLOGICAL: Alert and motor intact. SKIN: LYMPHATICS: LABORATORY DATA: Labs show creatinine is 1.4 and bicarb 16. ASSESSMENT AND PLAN: Acute kidney injury, improved. Chronic kidney disease stage 3, stable. Metabolic acidosis, continue sodium bicarbonate. Acidosis due to diarrhea. Anemia, stable. Medication based on GFR appropriate. Job ID: [id number]
[2019-04-04] MEDS: HumaLOG 300 UNITS/3 ML VIAL SC SCH (12:28)
[2019-04-04] MEDS: Insulin Regular 300 UNITS/3 ML VIAL SC PRN ×2 (16:58→22:20)
--- NOTE | 2019-04-04 18:47 | PDOC.HOSPP ---
- Subjective Encounter Date: 04/04/19 Encounter Time: 17:00 Subjective: The patient continues to have productive cough. She is unable to bring up the phlegm. She denies chest pain. She is anxious about BM biopsy, wants to have it done on Saturday. Has concerns about whether it is painful procedure and wants to be put to sleep in it. After speaking with her mother, mother is requesting IV sedation because she doesn't think she will tolerate local. - Objective Vital Signs & Weight: Vital Signs (12 hours) Temp Pulse Resp BP Pulse Ox 04/04/19 17:01 98.3 F 100 12 135/79 94 L 04/04/19 12:50 97.7 F 108 H 14 130/79 04/04/19 10:56 100 18 04/04/19 08:00 98.4 F 103 H 20 124/78 96 Weight Weight 205 lb I&O: 04/03/19 04/04/19 04/05/19 06:59 06:59 06:59 Intake Total 620 2600 Balance 620 2600 Result Diagrams: 04/04/19 05:54 04/04/19 05:54 Additional Labs: Accuchecks 04/04/19 04/04/19 04/04/19 16:58 12:52 09:30 POC Glucose 176 H 108 94 04/04/19 04/04/19 04/03/19 06:13 03:34 21:19 POC Glucose 140 H 117 H 105 Hospitalist ROS - Review of Systems Constitutional: denies: fever, chills - Medication Medications: Active Medications Generic Name Dose Route Start Last Admin Trade Name Hoseaq PRN Reason Stop Dose Admin Acetaminophen 650 mg 04/01/19 23:20 04/03/19 23:19 Tylenol PO 650 mg Q4H PRN Administration Headache/Fever or Pain Acyclovir 400 mg 04/03/19 20:00 04/04/19 16:49 Zovirax PO 04/08/19 20:01 400 mg 5XD KHAI Administration Aspirin 81 mg 04/01/19 09:00 04/04/19 09:13 Ecotrin PO 81 mg DAILY KHAI Administration Azithromycin 250 mg 04/02/19 09:00 04/04/19 09:14 Zithromax PO 04/05/19 09:01 250 mg DAILY KHAI Administration Folic Acid 1 mg 04/02/19 09:00 04/04/19 09:15 Folvite PO 1 mg DAILY KHAI Administration Guaifenesin 600 mg 04/02/19 07:47 04/03/19 17:07 Mucinex PO 600 mg Q12H PRN Administration Cough Ceftriaxone Sodium 1 gm/ 100 mls @ 200 mls/hr 04/02/19 05:00 04/04/19 05:23 Sodium Chloride IVPB 04/05/19 05:29 100 mls Q24HR KHAI Administration Insulin Human Regular 0 units 04/01/19 05:31 04/04/19 16:58 Humulin R SC 3 unit .AGGRESSIVE SLIDING PRN Administration Aggressive Correctional Scale Ipratropium [place] 2.5 ml 04/01/19 05:31 04/02/19 00:08 Atrovent NEB 2.5 ml [id number] PRN Administration SOB &/or Wheezing Ipratropium [place] 2.5 ml 04/02/19 18:30 04/04/19 15:15 Atrovent NEB 2.5 ml [id number] KHAI Administration Lorazepam 0.5 mg 04/02/19 15:09 04/03/19 20:04 Ativan PO 0.5 mg Q4H PRN Administration Anxiety Mometasone Furoate/Formoterol Fumar 2 puff 04/01/19 06:30 04/04/19 03:10 Dulera 200 Mcg/5 Mcg Inhaler INH 2 puff BID-RT KHAI Administration Montelukast Sodium 10 mg 04/01/19 21:00 04/03/19 21:54 Singulair PO 10 mg QPM KHAI Administration Pregabalin 25 mg 04/02/19 09:00 04/04/19 11:22 Lyrica PO 25 mg BID KHAI Administration Saccharomyces Boulardii 250 mg 04/02/19 09:00 04/04/19 09:17 Florastor PO 250 mg DAILY KHAI Administration Sodium Bicarbonate 975 mg 04/02/19 21:00 04/04/19 16:49 Bicarbonate, Sodium PO 975 mg TID KHAI Administration Sodium Chloride 10 ml 04/02/19 09:00 04/04/19 11:21 Flush - Normal Saline IVF Not Given Q12HR KHAI Thiamine HCl 100 mg 04/02/19 09:00 04/04/19 09:16 Thiamine PO 100 mg DAILY KHAI Administration - Exam General Appearance: NAD, awake alert General - other findings: obese Eye: PERRL, anicteric sclera ENT: normocephalic atraumatic, no oropharyngeal lesions Neck: no JVD Heart: RRR, no murmur, no gallops, no rubs Respiratory: CTAB, rhonchi Respiratory - other findings: at the bases Gastrointestinal: soft, non-tender, non-distended Extremities: no cyanosis, no clubbing, no edema Hosp A/P - Plan CTA thorax: Multifocal infiltrates. Splenomegaly. Adenopathy. This is 28 year old female with history of asthma who presented with recurrent pneumonia Multifocal pneumonia vs lymphoma - CTA showing multifocal infiltrates but also with extensive adenopathy to right of trachea, subcarinal, right infraclavicular, left axillary - continue IV ceftriaxone and azithromycin - plan for bone marrow biopsy on Saturday. Pulm on board, may consider bronchoscopy if workup for BM biopsy unremarkable Pancytopenia - WBC 2.2, Hb 8.4, platelets 89 - hematology consulted, plan for BM biopsy on Saturday. Patient is requesting to be put tos [facility] for it Asthma - continue montelukast TU on CKD stage III - creatinine improving to 1.40 - nephrology is following #Type II diabetes - will change insulin to sliding scale - switch to lantus 15 units SC qhs - fingersticks achs #Herpes labialis - continue acyclovir Code status: full code
[2019-04-04] MEDS ORDERED: Insulin Glargine 15 UNITS in Pre-Filled Syringe 1 EACH SC SCH (21:00)
[2019-04-04] MEDS: Montelukast Sodium 10 mg Tablet PO SCH (22:15)
[2019-04-04] MEDS: guaiFENesin ER 600 MG TAB PO SCH (22:37)
[2019-04-05] MEDS: Acyclovir 400 mg Tablet PO SCH ×6 (00:15→23:26)
[2019-04-05] MEDS: Ipratropium Bromide 2.5 ml Neb NEB SCH ×6 (02:24→23:00)
[2019-04-05] MEDS: cefTRIAXone\\ROCEPHIN 1 GM in Sodium Chloride 0.9% 100 ML IVPB SCH (05:08)
[2019-04-05] MEDS: Insulin Regular 300 UNITS/3 ML VIAL SC PRN ×2 (05:29→20:57)
[2019-04-05] MEDS: Mometasone/Formoterol 120 PUFF INHALER INH SCH ×2 (07:25→18:41)
[2019-04-05] MEDS: Aspirin 81 mg Enteric Coated Tablet PO SCH (09:03)
[2019-04-05] MEDS: Sodium Bicarbonate Tab 325 MG TAB PO SCH ×3 (09:04→20:36)
[2019-04-05] MEDS: Saccharomyces boulardii 250 MG CAP PO SCH (09:04)
[2019-04-05] MEDS: guaiFENesin ER 600 MG TAB PO SCH ×2 (09:04→20:37)
[2019-04-05] MEDS: Azithromycin 250 MG TAB PO SCH (09:04)
[2019-04-05] MEDS: Thiamine 100 MG TAB PO SCH (09:05)
[2019-04-05] MEDS: Pregabalin 25 MG CAP PO SCH ×2 (09:05→20:35)
[2019-04-05] MEDS: Folic Acid 1 MG TAB PO SCH (09:05)
--- NOTE | 2019-04-05 18:00 | PDOC.HOSPP ---
- Subjective Encounter Date: 04/05/19 Encounter Time: 17:58 Subjective: Patient is doing better. She has some cough but is able to clear it up better. She has some shortness of breath. She is supposed to get BM biopsy and bronch tomorrow, patient wants to be put to sleep for it. No fevers - Objective Vital Signs & Weight: Vital Signs (12 hours) Temp Pulse Resp BP BP BP Pulse Ox 04/05/19 16:11 97.9 F 99 18 135/87 88 L 04/05/19 14:59 85 16 04/05/19 11:59 97.5 F L 102 H 18 144/80 H 97 04/05/19 11:44 98 16 04/05/19 08:00 98 F 99 20 132/76 94 L 04/05/19 07:20 110 H 16 Weight Weight 205 lb I&O: 04/04/19 04/05/19 04/06/19 06:59 06:59 06:59 Intake Total 2600 200 Balance 2600 200 Result Diagrams: 04/04/19 05:54 04/04/19 05:54 Additional Labs: Accuchecks 04/05/19 04/05/19 04/05/19 15:53 11:10 05:28 POC Glucose 157 H 140 H 167 H 04/04/19 22:17 POC Glucose 206 H Hospitalist ROS - Medication Medications: Active Medications Generic Name Dose Route Start Last Admin Trade Name Freq PRN Reason Stop Dose Admin Acetaminophen 650 mg 04/01/19 23:20 04/03/19 23:19 Tylenol PO 650 mg Q4H PRN Administration Headache/Fever or Pain Acyclovir 400 mg 04/03/19 20:00 04/05/19 15:37 Zovirax PO 04/08/19 20:01 400 mg 5XD KHAI Administration Aspirin 81 mg 04/01/19 09:00 04/05/19 09:03 Ecotrin PO 81 mg DAILY KHAI Administration Folic Acid 1 mg 04/02/19 09:00 04/05/19 09:05 Folvite PO 1 mg DAILY KHAI Administration Guaifenesin 600 mg 04/04/19 19:00 04/05/19 09:04 Mucinex PO 600 mg Q12H KHAI Administration Insulin Human Regular 0 units 04/01/19 05:31 04/05/19 05:29 Humulin R SC 3 unit .AGGRESSIVE SLIDING PRN Administration Aggressive Correctional Scale Ipratropium [place] 2.5 ml 04/01/19 05:31 04/02/19 00:08 Atrovent NEB 2.5 ml [id number] PRN Administration SOB &/or Wheezing Ipratropium [place] 2.5 ml 04/02/19 18:30 04/05/19 14:59 Atrovent NEB 2.5 ml [id number] KHAI Administration Lorazepam 0.5 mg 04/02/19 15:09 04/03/19 20:04 Ativan PO 0.5 mg Q4H PRN Administration Anxiety Mometasone Furoate/Formoterol Fumar 2 puff 04/01/19 06:30 04/05/19 07:25 Dulera 200 Mcg/5 Mcg Inhaler INH 2 puff BID-RT KHAI Administration Montelukast Sodium 10 mg 04/01/19 21:00 04/04/19 22:15 Singulair PO 10 mg QPM KHAI Administration Pregabalin 25 mg 04/02/19 09:00 04/05/19 09:05 Lyrica PO 25 mg BID KHAI Administration Saccharomyces Boulardii 250 mg 04/02/19 09:00 04/05/19 09:04 Florastor PO 250 mg DAILY KHAI Administration Sodium Bicarbonate 975 mg 04/02/19 21:00 04/05/19 15:37 Bicarbonate, Sodium PO 975 mg TID KHAI Administration Sodium Chloride 10 ml 04/02/19 09:00 04/05/19 09:06 Flush - Normal Saline IVF 10 ml Q12HR KHAI Administration Thiamine HCl 100 mg 04/02/19 09:00 04/05/19 09:05 Thiamine PO 100 mg DAILY KHAI Administration - Exam General Appearance: NAD, awake alert Eye: PERRL, anicteric sclera ENT: normocephalic atraumatic, no oropharyngeal lesions Neck: no JVD Heart: RRR, no murmur, no gallops, no rubs Respiratory: CTAB, no wheezes, no rales, no ronchi Gastrointestinal: soft, non-tender, non-distended, normal bowel sounds Extremities: no cyanosis, no clubbing, no edema Hosp A/P - Plan CTA thorax: Multifocal infiltrates. Splenomegaly. Adenopathy. This is 28 year old female with history of asthma who presented with recurrent pneumonia Multifocal pneumonia vs lymphoma - CTA showing multifocal infiltrates but also with extensive adenopathy to right of trachea, subcarinal, right infraclavicular, left axillary - continue IV ceftriaxone and azithromycin day 4/5 - plan for bronchoscopy tomorrow. Dr. Mahajan will coordinate with IR since patient wants general anasthesia for bone marrow biopsy. Bronch anticipated sometime in mid morning Pancytopenia - WBC 2.2, Hb 8.4, platelets 89 - hematology consulted, plan for BM biopsy on Saturday. Asthma - continue montelukast TU on CKD stage III - creatinine improving to 1.40. Recheck BMP today - nephrology is following #Type II diabetes -continue sliding scale insulin - blood sugar 100 to 150 #Herpes labialis - continue acyclovir Code status: full code
--- NOTE | 2019-04-05 20:34 | PRG ---
DATE OF SERVICE: 04/05/2019 SERVICE: Pulmonary Medicine. INTERVAL HISTORY: The patient is doing really well from respiratory standpoint. Breathing comfortably. No complaints of chest discomfort or shortness of breath. Otherwise, she remains in her usual state of health. PHYSICAL EXAMINATION: VITAL SIGNS: Afebrile, pulse 92, blood pressure 140/78, respirations 16, and saturation 92% on room air. GENERAL: The patient is awake and alert, in no apparent distress. LUNGS: Wonderful air entry. No crackles or wheezing appreciated. HEART: Normal rate and regular. ABDOMEN: Soft, nontender, and nondistended. Bowel sounds are positive. MUSCULOSKELETAL: No cyanosis or clubbing. No pitting in the bilateral lower extremities. NEUROLOGIC: Grossly nonfocal. ASSESSMENT: 1. Acute hypoxic respiratory failure, resolved. 2. Asthma with acute exacerbation, resolved. 3. Pulmonary infiltrate with mediastinal lymphadenopathy. 4. Pancytopenia. DISCUSSION AND PLAN: We will move forward with bronchoscopy tomorrow. We will also do an endoscopic bronchial ultrasound-guided transbronchial needle aspiration of mediastinal lymph node. While we are doing this procedure, Oncology would like to perform a bone marrow biopsy. We will see if we can coordinate this procedure with anesthesia. Pulmonary/Critical Care will follow. Job ID: [id number]
[2019-04-05] MEDS: Montelukast Sodium 10 mg Tablet PO SCH (20:35)
[2019-04-05 20:36] LABS: Anion Gap 13 mmol/L (10-20); BUN (Urea Nitrogen) 28 mg/dL (7.0-18.7); Calc. Creatinine Clearance 88 mL/min (70-130); Carbon Dioxide 23 mmol/L (22-29); Chloride 110 mmol/L (98-107); Estimated GFR-MDRD 45; Glucose 171 mg/dL (70-105); Potassium 4.8 mmol/L (3.5-5.1); Sodium 141 mmol/L (136-145)
[2019-04-06] MEDS: Ipratropium Bromide 2.5 ml Neb NEB SCH ×6 (02:51→22:59)
[2019-04-06] MEDS: cefTRIAXone\\ROCEPHIN 1 GM in Sodium Chloride 0.9% 100 ML IVPB SCH (04:22)
[2019-04-06 04:33] LABS: PTT 28.1 SEC (22.9-36.1); Prothrombin Time 13.5 SEC (12.0-14.7)
[2019-04-06] MEDS: Mometasone/Formoterol 120 PUFF INHALER INH SCH ×2 (07:06→18:57)
[2019-04-06] MEDS ORDERED: Fentanyl 100 MCG/2 ML VIAL ONE ×3 (08:30→14:27)
[2019-04-06] MEDS ORDERED: Midazolam HCl 2 mg/2 ml Vial ONE (08:30)
[2019-04-06] MEDS ORDERED: Sodium Bicarbonate 2.5 MEQ/5 ML VIAL ONE (08:30)
[2019-04-06] MEDS: guaiFENesin ER 600 MG TAB PO SCH ×2 (08:44→19:19)
[2019-04-06] MEDS: Acyclovir 400 mg Tablet PO SCH ×5 (08:45→23:12)
[2019-04-06] MEDS: Saccharomyces boulardii 250 MG CAP PO SCH (08:45)
[2019-04-06] MEDS: Thiamine 100 MG TAB PO SCH (08:45)
[2019-04-06] MEDS: Sodium Bicarbonate Tab 325 MG TAB PO SCH ×3 (08:45→19:26)
[2019-04-06] MEDS: Pregabalin 25 MG CAP PO SCH ×2 (08:45→19:26)
[2019-04-06] MEDS: Folic Acid 1 MG TAB PO SCH (08:45)
[2019-04-06] MEDS: Aspirin 81 mg Enteric Coated Tablet PO SCH (08:45)
[2019-04-06] MEDS ORDERED: Dexamethasone 20 MG/5 ML VIAL ONE (08:49)
[2019-04-06] MEDS ORDERED: PROPOFOL 200 MG/20 ML VIAL ONE (08:49)
[2019-04-06] MEDS ORDERED: Ondansetron PF 4 MG/2 ML Vial ONE (08:49)
[2019-04-06] MEDS ORDERED: Succinylcholine Chloride 20 MG/ML 10 ml SYRINGE FS ONE (08:49)
[2019-04-06] MEDS ORDERED: Glycopyrrolate 0.2 MG/ML 5 ML SYRINGE ONE (08:49)
[2019-04-06] MEDS ORDERED: Rocuronium Bromide 10 MG/ML (10ML VIAL) ONE (08:49)
[2019-04-06] MEDS ORDERED: Lidocaine 1% PF 5 ML VIAL ONE (08:49)
[2019-04-06] MEDS ORDERED: Azithromycin 250 MG TAB PO SCH (09:00)
--- NOTE | 2019-04-06 10:57 | CT ---
CT GUIDED RIGHT ILIAC BONE MARROW ASPIRATION AND BIOPSY: CLINICAL HISTORY: Pancytopenia. PROCEDURE: The procedure including the risks and complications were explained to the patient, and informed conse nt was obtained. The patient was placed on the CT scan table in the prone position. Noncontrasted CT images were obtained through the pelvis. An area was marked overlying the RIGHT yvonne c bone, and the area was meticulously prepped and draped in usual sterile fashion. The skin and subcutaneous tissues were infiltrated with buffered 1% lidocaine for local anesthesia. After a small skin incision was made, an 11-gauge needle was advanced and positioning was confirmed w ith axial CT images. Approximately 8 milliliters of bone marrow aspirate was obtained. The needle was then further advanced, and a bone marrow biopsy was performed. The needle was removed, and hemost asis was achieved with direct pressure. The patient tolerated the procedure well and without immediate complication. The patient was transported to radiology nurses holding area for further lucas toring prior to discharge. IMPRESSION: Technically successful percutaneous bone marrow aspiration and biopsy. Pathology results are pending.
[2019-04-06] MEDS ORDERED: Promethazine HCl 25 MG/ML VIAL SLOW IVP PRN (15:59)
[2019-04-06] MEDS ORDERED: Promethazine HCl 25 MG/ML VIAL ONE (16:13)
--- NOTE | 2019-04-06 17:13 | PRG ---
DATE OF SERVICE: 04/06/2019 SERVICE: Pulmonary Medicine. INTERVAL HISTORY: The patient is doing okay from respiratory standpoint. Breathing comfortably. No complaints of chest discomfort, fevers, or chills. She continues to cough and bring up a little bit of white phlegm. Otherwise, there has been no interval change to her condition. PHYSICAL EXAMINATION: VITAL SIGNS: Afebrile, pulse 75, respirations 14, saturation 92%, currently on 2 L nasal cannula. GENERAL: The patient is awake and alert, in no apparent distress. LUNGS: Decent air entry. Rhonchi are present. No prolonged expiratory phase or wheezing is appreciated. HEART: Normal rate and regular. ABDOMEN: Soft, nontender, nondistended. Bowel sounds are positive. MUSCULOSKELETAL: No cyanosis or clubbing. There is trace 1+ pitting in the bilateral lower extremities. NEUROLOGIC: Grossly nonfocal. ASSESSMENT: 1. Acute hypoxic respiratory failure. 2. Pulmonary infiltrate. 3. Mediastinal lymphadenopathy. 4. Pancytopenia. DISCUSSION AND PLAN: She has already had her bone marrow biopsy. We are going to be proceeding with bronchoscopy. We will get a sample out of the right lower lobe, and sample the mediastinal lymph node at the R4 level if possible. Otherwise, we will continue our empiric antibiotics. Pulmonary will follow. Job ID: [id number]
[2019-04-06 17:23] LABS: BF Color Red; BF WBC/Nonhematics Ct. - Manua 423 /cumm; Body Fluid Source Bronchial Washings; Clarity Cloudy/Turbid (Clear); Tube # EDTA
[2019-04-06 17:28] LABS: Eosinophils 1 %; Lymphocytes 19 %
[2019-04-06 17:29] LABS: BF Segmented Neutrophils 40 %; Cell Count Non Hematic 40 %
--- NOTE | 2019-04-06 17:29 | PDOC.HOSPP ---
- Subjective Encounter Date: 04/06/19 Encounter Time: 16:30 Subjective: THe patient is drowsy after bronchoscopy and bone marrow biopsy. Per nursing this is from phenergan that she received. No respiratory complaints currently. - Objective Vital Signs & Weight: Vital Signs (12 hours) Temp Pulse Resp BP Pulse Ox 04/06/19 10:13 95 16 04/06/19 09:40 97.0 F L 104 H 18 143/86 H 104 H 04/06/19 08:00 97.6 F 95 16 158/88 H 04/06/19 06:50 92 16 Weight Weight 205 lb I&O: 04/05/19 04/06/19 04/07/19 06:59 06:59 06:59 Intake Total 200 Balance 200 Result Diagrams: 04/04/19 05:54 04/05/19 20:04 Additional Labs: Accuchecks 04/06/19 04/06/19 04/05/19 17:01 05:47 20:57 POC Glucose 184 H 106 211 H Hospitalist ROS - Review of Systems Constitutional: denies: fever, chills - Medication Medications: Active Medications Generic Name Dose Route Start Last Admin Trade Name Freq PRN Reason Stop Dose Admin Acetaminophen 650 mg 04/01/19 23:20 04/03/19 23:19 Tylenol PO 650 mg Q4H PRN Administration Headache/Fever or Pain Acyclovir 400 mg 04/03/19 20:00 04/06/19 12:00 Zovirax PO 04/08/19 20:01 Not Given 5XD [facility] Aspirin 81 mg 04/01/19 09:00 04/06/19 08:45 Ecotrin PO Not Given DAILY [facility] Folic Acid 1 mg 04/02/19 09:00 04/06/19 08:45 Folvite PO Not Given DAILY KHAI Guaifenesin 600 mg 04/04/19 19:00 04/06/19 08:44 Mucinex PO Not Given Q12H KHAI Ceftriaxone Sodium 1 gm/ 100 mls @ 200 mls/hr 04/06/19 05:00 04/06/19 04:22 Sodium Chloride IVPB 100 mls Q24HR KHAI Administration Insulin Human Regular 0 units 04/01/19 05:31 04/05/19 20:57 Humulin R SC 6 unit .AGGRESSIVE SLIDING PRN Administration Aggressive Correctional Scale Ipratropium [place] 2.5 ml 04/01/19 05:31 04/02/19 00:08 Atrovent NEB 2.5 ml [id number] PRN Administration SOB &/or Wheezing Ipratropium [place] 2.5 ml 04/02/19 18:30 04/06/19 14:29 Atrovent NEB Not Given [id number] KHAI Lorazepam 0.5 mg 04/02/19 15:09 04/03/19 20:04 Ativan PO 0.5 mg Q4H PRN Administration Anxiety Mometasone Furoate/Formoterol Fumar 2 puff 04/01/19 06:30 04/06/19 07:06 Dulera 200 Mcg/5 Mcg Inhaler INH 2 puff BID-RT KHAI Administration Montelukast Sodium 10 mg 04/01/19 21:00 04/05/19 20:35 Singulair PO 10 mg QPM KHAI Administration Pregabalin 25 mg 04/02/19 09:00 04/06/19 08:45 Lyrica PO Not Given BID [facility] Saccharomyces Boulardii 250 mg 04/02/19 09:00 04/06/19 08:45 Florastor PO Not Given DAILY [facility] Sodium Bicarbonate 975 mg 04/02/19 21:00 04/06/19 15:39 Bicarbonate, Sodium PO Not Given TID [facility] Sodium Chloride 10 ml 04/02/19 09:00 04/06/19 08:46 Flush - Normal Saline IVF Not Given Q12HR [facility] Thiamine HCl 100 mg 04/02/19 09:00 04/06/19 08:45 Thiamine PO Not Given DAILY KHAI - Exam General Appearance: NAD General - other findings: drowsy ENT: normocephalic atraumatic, no oropharyngeal lesions Neck: supple, symmetric, no JVD Heart: RRR, no murmur, no gallops, no rubs Respiratory: CTAB Respiratory - other findings: upper airway rhonchi heard and bilateral rhonchi at bases Gastrointestinal: soft, non-tender, non-distended, normal bowel sounds Extremities: no cyanosis, no clubbing, no edema Skin: normal turgor, no lesions, no rashes Hosp A/P - Plan CTA thorax: Multifocal infiltrates. Splenomegaly. Adenopathy. This is 28 year old female with history of asthma who presented with recurrent pneumonia Multifocal pneumonia vs lymphoma - CTA showing multifocal infiltrates but also with extensive adenopathy to right of trachea, subcarinal, right infraclavicular, left axillary - continue IV ceftriaxone and azithromycin day 5/5 - s/p bronchoscopy today, will follow biopsies Pancytopenia - WBC 2.3, Hb 8.4, platelets 89 - s/p bone marrow biopsy today Asthma - continue montelukast TU on CKD stage III - creatinine improving to 1.39 yesterday. Recheck BMP tomorrow - nephrology is following #Type II diabetes -continue sliding scale insulin - blood sugar 100 to 150 #Herpes labialis - continue acyclovir Code status: full code
--- NOTE | 2019-04-06 17:41 | OP ---
DATE OF PROCEDURE: 04/06/2019 SERVICE: Pulmonary Medicine. PROCEDURES PERFORMED: Fiberoptic bronchoscopy with: 1. Endoscopic bronchial ultrasound-guided transbronchial needle aspiration of station R4. 2. Visual airway inspection. 3. Endobronchial brushing of the left lower lobe. 4. Bronchoalveolar lavage of the left lower lobe. 5. Transbronchial biopsy of the left lower lobe. PREPROCEDURE DIAGNOSES: 1. Pulmonary infiltrate. 2. Mediastinal lymphadenopathy. POSTPROCEDURE DIAGNOSES: 1. Pulmonary infiltrate. 2. Mediastinal lymphadenopathy. PREANESTHESIA ASSESSMENT: H and P had been performed. The patient's medications and allergies were reviewed. Informed consent was obtained after discussing the risks, benefits, and rationale for performing the procedure as well as alternative option. DESCRIPTION OF PROCEDURE: The patient was positively identified with name and date of . The proposed procedure was verified. After induction of anesthesia, an endoscopic bronchial ultrasound was guided through the endotracheal tube and a chelsea survey was performed. Ultimately, an R4 lymph node was sampled. The scope was removed and replaced with a conventional light fiberoptic bronchoscope. A tracheobronchial tree inspection was cleared out, carried out with clear identification of the right upper lobe, right middle lobe, right lower lobe, left upper lobe, lingula, and left lower lobe. Anatomy was normal to the segmental level. Bronchoalveolar lavage was obtained from the superior segment of the left lower lobe. Endobronchial brushing and transbronchial biopsies were also obtained from the same lobe under fluoroscopic guidance. Hemostasis was verified and the bronchoscope was subsequently removed from the patient. Postprocedure fluoroscopy did not demonstrate a pneumothorax. FINDINGS: 1. No endobronchial disease was identified. 2. Secretions were minimal, but thick. 3. Patricia appeared sharp. 4. Rapid on-site pathology demonstrated lymphocytes without obvious malignancy on first glance. SPECIMENS OBTAINED: 1. FNA of station R4 for cytology. 2. FNA of station R4 for cell block. 3. Microbiology on BAL from superior segment of right lower lobe. 4. Pathology on BAL, brushings, and transbronchial biopsies of superior segment left lower lobe. COMPLICATIONS: None. ESTIMATED BLOOD LOSS: 5 mL. FLUOROSCOPY TIME: Less than 2 minutes. DISPOSITION: The patient will be sent back to her room after she meets criteria in the postanesthesia care unit. Job ID: [id number] [facility]
[2019-04-06] MEDS: Montelukast Sodium 10 mg Tablet PO SCH (19:25)
[2019-04-06] MEDS: Insulin Regular 300 UNITS/3 ML VIAL SC PRN (21:10)
[2019-04-07] MEDS: Acetaminophen 325 MG TAB PO PRN (01:31)
[2019-04-07] MEDS: Lorazepam 0.5 MG TAB PO PRN ×3 (01:31→20:44)
[2019-04-07] MEDS: Ipratropium Bromide 2.5 ml Neb NEB SCH ×6 (03:05→22:09)
[2019-04-07 04:37] LABS: Hemoglobin 8.7 g/dL (12.0-16.0); Mean Corpuscular HGB CONC 34.1 g/dL (32.0-36.0); Mean Corpuscular Volume 82.1 fL (78.0-98.0); Mean Platelet Volume 9.3 fL (7.4-10.4); Platelet Count 107 thou/uL (130-400); RBC Distribution Width 14.9 % (11.5-14.5); Red Blood Cell (RBC) Count 3.11 mill/uL (4.20-5.40); White Blood Cell (WBC) Count 1.9 thou/uL (4.8-10.8)
[2019-04-07 04:38] LABS: Anion Gap 15 mmol/L (10-20); BUN (Urea Nitrogen) 32 mg/dL (7.0-18.7); Calc. Creatinine Clearance 74 mL/min (70-130); Calcium 8.9 mg/dL (7.8-10.44); Carbon Dioxide 21 mmol/L (22-29); Chloride 102 mmol/L (98-107); Estimated GFR-MDRD 37; Potassium 6.3 mmol/L (3.5-5.1); Sodium 132 mmol/L (136-145)
[2019-04-07 04:42] LABS: Glucose 551 mg/dL (70-105)
[2019-04-07] MEDS ORDERED: Insulin Regular 300 UNITS/3 ML VIAL SC SCH ×2 (05:00→12:30)
[2019-04-07] MEDS ORDERED: Sodium Bicarb 50 MEQ/50 ML VIAL IVP SCH (05:15)
[2019-04-07] MEDS: cefTRIAXone\\ROCEPHIN 1 GM in Sodium Chloride 0.9% 100 ML IVPB SCH (05:56)
[2019-04-07] MEDS: guaiFENesin ER 600 MG TAB PO SCH ×2 (07:24→19:39)
[2019-04-07] MEDS: Mometasone/Formoterol 120 PUFF INHALER INH SCH ×2 (07:55→18:35)
[2019-04-07 07:56] LABS: Anion Gap 14 mmol/L (10-20); BUN (Urea Nitrogen) 31 mg/dL (7.0-18.7); Calc. Creatinine Clearance 79 mL/min (70-130); Calcium 8.7 mg/dL (7.8-10.44); Carbon Dioxide 23 mmol/L (22-29); Chloride 103 mmol/L (98-107); Estimated GFR-MDRD 40; Glucose 484 mg/dL (70-105); Potassium 5.7 mmol/L (3.5-5.1); Sodium 134 mmol/L (136-145)
[2019-04-07] MEDS: Pregabalin 25 MG CAP PO SCH ×2 (08:22→20:41)
[2019-04-07] MEDS: Acyclovir 400 mg Tablet PO SCH ×4 (08:22→19:39)
[2019-04-07] MEDS: Thiamine 100 MG TAB PO SCH (09:00)
[2019-04-07] MEDS: Sodium Bicarbonate Tab 325 MG TAB PO SCH ×3 (09:00→20:42)
[2019-04-07] MEDS: Folic Acid 1 MG TAB PO SCH (09:00)
[2019-04-07] MEDS: Aspirin 81 mg Enteric Coated Tablet PO SCH (09:56)
[2019-04-07] MEDS: Saccharomyces boulardii 250 MG CAP PO SCH (10:04)
[2019-04-07 11:14] LABS: Anion Gap 15 mmol/L (10-20); BUN (Urea Nitrogen) 31 mg/dL (7.0-18.7); Calc. Creatinine Clearance 75 mL/min (70-130); Carbon Dioxide 24 mmol/L (22-29); Chloride 102 mmol/L (98-107); Estimated GFR-MDRD 38; Glucose 441 mg/dL (70-105); Potassium 5.6 mmol/L (3.5-5.1); Sodium 135 mmol/L (136-145)
[2019-04-07] MEDS: Insulin Regular 300 UNITS/3 ML VIAL SC PRN ×3 (12:28→20:42)
--- NOTE | 2019-04-07 12:58 | PDOC.MOPN ---
Interval History: sore throat from bronch. - Vital Signs Vital Signs: Vital Signs (12 hours) Temp Pulse Resp BP BP Pulse Ox 04/07/19 10:50 98 20 92 L 04/07/19 07:58 92 L 04/07/19 07:57 97 16 92 L 04/07/19 07:55 97 16 92 L 04/07/19 07:44 97.6 F 96 18 103/51 L 93 L 04/07/19 04:00 98.1 F 96 18 133/69 95 04/07/19 03:05 87 14 93 L Weight Weight 205 lb - Physical Exam General: Alert, Oriented x3, No acute distress HEENT: Atraumatic, PERRLA, EOMI, Mucous membr. moist/pink Lungs: Clear to auscultation, Normal air movement Cardiovascular: Regular rate, Normal S1, Normal S2, No murmurs, Gallops, Rubs Abdomen: Normal bowel sounds, Soft, No tenderness, No hepatospenomegaly, No masses Extremities: No clubbing, No cyanosis, No edema, Normal pulses, No tenderness/ swelling Skin: No rashes, No breakdown, No significant lesion Neurological: Normal gait, Normal speech, Strength at 5/5 X4 ext, Normal tone, Sensation intact, Cranial nerves 3-12 NL, Reflexes 2+ Psych/Mental Status: Mental status NL, Mood NL - Labs Result Diagrams: 04/07/19 04:03 04/07/19 10:54 Lab results: Laboratory Results - last 24 hr 04/07/19 11:36: POC Glucose 416 H 04/07/19 10:54: Sodium 135 L, Potassium 5.6 H, Chloride 102, Carbon Dioxide 24, Anion Gap 15, BUN 31 H, Creatinine 1.62 H, Estimated GFR (MDRD) 38, Glucose 441 H, Calcium 9.0 04/07/19 07:24: Sodium 134 L, Potassium 5.7 H, Chloride 103, Carbon Dioxide 23, Anion Gap 14, BUN 31 H, Creatinine 1.55 H, Estimated GFR (MDRD) 40, Glucose 484 H, Calcium 8.7 04/07/19 04:03: WBC 1.9 L, RBC 3.11 L, Hgb 8.7 L, Hct 25.6 L, MCV 82.1, MCH 28.0 , MCHC 34.1, RDW 14.9 H, Plt Count 107 L, MPV 9.3 04/07/19 04:03: Sodium 132 L, Potassium 6.3 H, Chloride 102, Carbon Dioxide 21 L , Anion Gap 15, BUN 32 H, Creatinine 1.64 H, Estimated GFR (MDRD) 37, Glucose 551 H*, Calcium 8.9 04/06/19 20:27: POC Glucose 450 H 04/06/19 17:01: POC Glucose 184 H 04/06/19 15:25: Fluid Source Bronchial Washings, Fluid Tube Number EDTA, Fluid Color Red, Fluid Clarity Cloudy/Turbid H, Fluid WBC (Manual) 423, Fluid RBC ( Manual) , Fluid Seg Neutrophil % 40, Fluid Lymphocytes % 19, Fluid Eosinophils % 1, Fluid Diff Path Review , Non-Hematological % 40, Fluid Comment Note: Status: lab reviewed by me A/P - Problem (1) Pneumonia Current Visit: Yes Code(s): J18.9 - PNEUMONIA, UNSPECIFIED ORGANISM Status: Acute (2) Pancytopenia and developmental delay syndrome Current Visit: No Code(s): D61.09 - OTHER CONSTITUTIONAL APLASTIC ANEMIA; R62.50 - UNSP LACK OF EXPECTED NORMAL PHYSIOL DEV IN CHILDHOOD Status: Acute - Plan Plan: await path results from bone marrow biopsy and bronch continue abx
--- NOTE | 2019-04-07 13:43 | PRG ---
DATE OF SERVICE: 04/07/2019 SERVICE: Pulmonary Medicine. INTERVAL HISTORY: The patient is doing really well from respiratory standpoint. She is on room air. Denies any current chest discomfort, fevers, or chills. Otherwise, there has been no interval change to her condition. She is little hoarse from the procedure yesterday. She coughed up a little bit of blood, but it is decreasing. PHYSICAL EXAMINATION: VITAL SIGNS: Afebrile; pulse 98; blood pressure 103/51; respirations 20; and saturation 92%, currently on room air. GENERAL: The patient is awake and alert, in no apparent distress. LUNGS: Good air entry bilaterally with no prolonged expiratory phase or wheezing present. HEART: Normal rate, regular. ABDOMEN: Soft, nontender, and nondistended. Bowel sounds are positive. MUSCULOSKELETAL: No cyanosis or clubbing. There is no pitting in bilateral lower extremities. NEUROLOGIC: Grossly nonfocal. LABORATORY DATA: WBC 1.9; hemoglobin 8.7, gently up-trending; platelets 107,000, also improving. Sodium 135 and up-trending; potassium 5.6, slowly improving; and creatinine 1.62, is gently up-trending. Basic metabolic profile is otherwise unremarkable. Her blood sugar ranges from 184 to 551. Body fluid has mostly neutrophils and nonhematologic cells. Lymphocytes represent 19%. Pathology, final results are pending. Respiratory culture is negative to date. C difficile antigen and toxin are unremarkable. ASSESSMENT: 1. Acute hypoxic respiratory failure, resolved. 2. Pulmonary infiltrate. 3. Mediastinal lymphadenopathy. 4. Pancytopenia. DISCUSSION AND PLAN: The patient is doing fine from a respiratory standpoint. At this point, she is once again stable for discharge from the hospital from purely respiratory perspective. She will need to go out on a 10-to 14-day course of p.o. antibiotics. If she remains in-house, I will continue to follow. If she is discharged before we have results from bronchoscopy, I will have her return to clinic to see me next week. Job ID: [id number]
[2019-04-07] MEDS ORDERED: Chloraseptic Spray 180 ml Bottle PO PRN ×2 (13:47→15:40)
--- NOTE | 2019-04-07 17:25 | PDOC.HOSPP ---
- Subjective Encounter Date: 04/07/19 Encounter Time: 17:22 Subjective: Patient is s/p bone marrow biopsy and bronchoscopy yesterday. She states she is coughing up some blood, not more than a teaspoon. Has some shortness of breath. No other complaints. - Objective Vital Signs & Weight: Vital Signs (12 hours) Temp Pulse Resp BP Pulse Ox 04/07/19 10:50 98 20 92 L 04/07/19 07:58 92 L 04/07/19 07:57 97 16 92 L 04/07/19 07:55 97 16 92 L 04/07/19 07:44 97.6 F 96 18 103/51 L 93 L Weight Weight 205 lb Result Diagrams: 04/07/19 04:03 04/07/19 10:54 Additional Labs: Accuchecks 04/07/19 04/07/19 04/06/19 16:19 11:36 20:27 POC Glucose 348 H 416 H 450 H Hospitalist ROS - Review of Systems Cardiovascular: denies: chest pain - Medication Medications: Active Medications Generic Name Dose Route Start Last Admin Trade Name Freq PRN Reason Stop Dose Admin Acetaminophen 650 mg 04/01/19 23:20 04/07/19 01:31 Tylenol PO 650 mg Q4H PRN Administration Headache/Fever or Pain Acyclovir 400 mg 04/03/19 20:00 04/07/19 16:25 Zovirax PO 04/08/19 20:01 Not Given 5XD KHAI Aspirin 81 mg 04/01/19 09:00 04/07/19 09:56 Ecotrin PO 81 mg DAILY KHAI Administration Folic Acid 1 mg 04/02/19 09:00 04/07/19 09:00 Folvite PO Not Given DAILY KHAI Guaifenesin 600 mg 04/04/19 19:00 04/07/19 07:24 Mucinex PO 600 mg Q12H KHAI Administration Ceftriaxone Sodium 1 gm/ 100 mls @ 200 mls/hr 04/06/19 05:00 04/07/19 05:56 Sodium Chloride IVPB 100 mls Q24HR KHAI Administration Insulin Human Regular 0 units 04/01/19 05:31 04/07/19 16:21 Humulin R SC 11 unit .AGGRESSIVE SLIDING PRN Administration Aggressive Correctional Scale Insulin Human Regular 0 units 04/06/19 20:40 04/06/19 21:10 Humulin R SC 5 unit .BEDTIME SLIDING SC PRN Administration Bedtime Correctional Scale Ipratropium [place] 2.5 ml 04/01/19 05:31 04/02/19 00:08 Atrovent NEB 2.5 ml [id number] PRN Administration SOB &/or Wheezing Ipratropium [place] 2.5 ml 04/02/19 18:30 04/07/19 16:23 Atrovent NEB Not Given [id number] KHAI Lorazepam 0.5 mg 04/02/19 15:09 04/07/19 08:26 Ativan PO 0.5 mg Q4H PRN Administration Anxiety Mometasone Furoate/Formoterol Fumar 2 puff 04/01/19 06:30 04/07/19 07:55 Dulera 200 Mcg/5 Mcg Inhaler INH 2 puff BID-RT KHAI Administration Montelukast Sodium 10 mg 04/01/19 21:00 04/06/19 19:25 Singulair PO Not Given QPM KHAI Phenol 0 ml 04/07/19 13:47 04/07/19 16:22 Chloraseptic [place] 180 Ml Bot PO 1 spr Q1H PRN Administration SORE THROAT Pregabalin 25 mg 04/02/19 09:00 04/07/19 08:22 Lyrica PO 25 mg BID KHAI Administration Saccharomyces Boulardii 250 mg 04/02/19 09:00 04/07/19 10:04 Florastor PO Not Given DAILY [facility] Sodium Bicarbonate 975 mg 04/02/19 21:00 04/07/19 15:20 Bicarbonate, Sodium PO Not Given TID KHAI Sodium Chloride 10 ml 04/02/19 09:00 04/07/19 08:25 Flush - Normal Saline IVF 10 ml Q12HR KHAI Administration Thiamine HCl 100 mg 04/02/19 09:00 04/07/19 09:00 Thiamine PO 100 mg DAILY KHAI Administration - Exam General - other findings: obese ENT - other findings: inspiratory wheezing Neck: supple, symmetric, no JVD Heart: RRR, no murmur, no gallops Respiratory: wheezes Respiratory - other findings: transmitted upper airway sounds Gastrointestinal: soft, non-tender, non-distended Extremities: no cyanosis, no clubbing, no edema Skin: normal turgor, no lesions, no rashes Neurological: cranial nerve grossly intact, normal sensation to touch, no focal deficits, no new deficit Hosp A/P - Plan CTA thorax: Multifocal infiltrates. Splenomegaly. Adenopathy. This is 28 year old female with history of asthma who presented with recurrent pneumonia Multifocal pneumonia vs lymphoma - CTA showing multifocal infiltrates but also with extensive adenopathy to right of trachea, subcarinal, right infraclavicular, left axillary - continue IV ceftriaxone for two more days - s/p azithromycin day 07/06 - s/p bronchoscopy 04/07, will follow biopsies Inspiratory stridor - will order dose of racemic epinephrine Pancytopenia - WBC 2.3, Hb 8.4, platelets 89 - s/p bone marrow biopsy 04/07 Asthma - continue montelukast TU on CKD stage III -worsened to 1.6 - will order IV fluids - recheck BMP tomorrow Hyperkalemia - potassium 5.6 - s/p kayexelate, insulin/dextrose. Patient has had BM, will repeat BMP #Type II diabetes -continue sliding scale insulin - blood sugar in the 400's - will order lantus 10 units qhs today #Herpes labialis - continue acyclovir Code status: full code
[2019-04-07 18:18] LABS: Anion Gap 12 mmol/L (10-20); BUN (Urea Nitrogen) 31 mg/dL (7.0-18.7); Calc. Creatinine Clearance 83 mL/min (70-130); Calcium 9.6 mg/dL (7.8-10.44); Carbon Dioxide 26 mmol/L (22-29); Chloride 105 mmol/L (98-107); Estimated GFR-MDRD 42; Glucose 252 mg/dL (70-105); Potassium 4.3 mmol/L (3.5-5.1); Sodium 139 mmol/L (136-145)
[2019-04-07] MEDS: Racepinephrine 2.25% 0.5 ML NEB NEB SCH (18:37)
[2019-04-07] MEDS: Sodium Chloride 0.9% 1,000 ML IV SCH (19:38)
[2019-04-07] MEDS: Montelukast Sodium 10 mg Tablet PO SCH (20:41)
[2019-04-07] MEDS ORDERED: Insulin Glargine 10 UNITS in Pre-Filled Syringe SC SCH (21:00)
[2019-04-07] MEDS ORDERED: Azithromycin 250 MG in Sodium Chloride 0.9% 250 ML 250 ML IVPB SCH (23:30)
[2019-04-08] MEDS: Acyclovir 400 mg Tablet PO SCH ×2 (00:14→09:09)
[2019-04-08] MEDS: Ipratropium Bromide 2.5 ml Neb NEB SCH ×3 (02:25→11:26)
[2019-04-08] MEDS: cefTRIAXone\\ROCEPHIN 1 GM in Sodium Chloride 0.9% 100 ML IVPB SCH (05:16)
[2019-04-08] MEDS: guaiFENesin ER 600 MG TAB PO SCH (06:34)
[2019-04-08] MEDS: Sodium Chloride 0.9% 1,000 ML IV SCH (06:35)
[2019-04-08] MEDS: Racepinephrine 2.25% 0.5 ML NEB NEB SCH (08:29)
[2019-04-08] MEDS: Mometasone/Formoterol 120 PUFF INHALER INH SCH (08:29)
[2019-04-08] MEDS: Sodium Bicarbonate Tab 325 MG TAB PO SCH (09:09)
[2019-04-08] MEDS: Saccharomyces boulardii 250 MG CAP PO SCH (09:09)
[2019-04-08] MEDS: Aspirin 81 mg Enteric Coated Tablet PO SCH (09:09)
[2019-04-08] MEDS: Folic Acid 1 MG TAB PO SCH (09:09)
[2019-04-08] MEDS: Thiamine 100 MG TAB PO SCH (09:09)
[2019-04-08] MEDS: Pregabalin 25 MG CAP PO SCH (09:09)
[2019-04-08 09:14] VITALS: BP 170/88; TEMP 97.7
[2019-04-08 11:06] LABS: Mean Corpuscular HGB CONC 32.7 g/dL (32.0-36.0); Mean Corpuscular Hemoglobin 27.5 pg (27.0-31.0); Mean Platelet Volume 9.2 fL (7.4-10.4); Platelet Count 122 thou/uL (130-400); RBC Distribution Width 15.1 % (11.5-14.5); Red Blood Cell (RBC) Count 3.27 mill/uL (4.20-5.40); White Blood Cell (WBC) Count 3.3 thou/uL (4.8-10.8)
[2019-04-08 11:24] LABS: Anion Gap 14 mmol/L (10-20); BUN (Urea Nitrogen) 28 mg/dL (7.0-18.7); Calc. Creatinine Clearance 88 mL/min (70-130); Calcium 8.6 mg/dL (7.8-10.44); Carbon Dioxide 23 mmol/L (22-29); Chloride 106 mmol/L (98-107); Estimated GFR-MDRD 45; Glucose 257 mg/dL (70-105); Iron 50 ug/dL (50-170); Iron Binding Capacity, Total 206 mcg/dL (265-497); Iron Binding Capacity, Total 210 mcg/dL (265-497); Potassium 4.1 mmol/L (3.5-5.1); Sodium 139 mmol/L (136-145)
[2019-04-08 11:55] LABS: Ferritin 456.12 ng/mL (10-291)
--- NOTE | 2019-04-09 05:21 | DIS ---
DATE OF ADMISSION: 04/01/2019 DATE OF DISCHARGE: 04/08/2019 DISCHARGE DIAGNOSES: Acute hypoxic respiratory failure secondary to recurrent pneumonia, multifocal pneumonia, pancytopenia, acute kidney injury, hyperkalemia , herpes labialis, type 2 diabetes. CONSULTATIONS: 1. Pulmonary with Dr. Vincent Mahajan. 2. Oncology with Dr. Judith Vasquez. 3. Nephrology with Dr. Petros Gordon. BRIEF HISTORY OF PRESENT ILLNESS: This is a 28-year-old female with a past medical history of developmental delay, diabetes, asthma, CKD, splenomegaly, who had presented to the emergency room with sore throat, fevers, nonproductive cough. The patient had recently completed a course of treatment for her strep pneumonia with Levaquin. Upon arrival to the ER, the patient had a temperature of 99.7, O2 saturation of 88% on room air with a respiratory rate of 20. Her chest x-ray showed a plaque-like infiltrate in the left upper lobe. The patient underwent a CTA of her thorax, which showed multifocal infiltrates with mediastinal lymphadenopathy, subcarinal lymphadenopathy, left axillary lymphadenopathy, and right infraclavicular lymphadenopathy. The patient was started on IV ceftriaxone and azithromycin and admitted for further workup. HOSPITAL COURSE: 1. Acute hypoxic respiratory failure secondary to multifocal pneumonia: The patient was started on IV ceftriaxone and azithromycin. Pulmonology was consulted due to recurrent pneumonia and question of lymphadenopathy on her CT scan. The patient did well with antibiotics and IV steroids and eventually was weaned off to room air. The patient underwent a bronchoscopy on 04/06. No endobronchial disease was identified, but there were some thick secretions. Pathology of her lung biopsy showed benign lung parenchyma and focal chronic inflammation. The patient was advised to continue antibiotics for 10 more days. She was discharged with cefdinir for 10 more days and will follow up with Dr. Mahajan in 1 week. 2. Pancytopenia/lymphadenopathy: The patient did have a white blood cell count of 3.3, hemoglobin of 9, hematocrit of 27, and a platelet count of 122. The patient had a vitamin B12 and folate checked which were unremarkable. Her iron studies showed a high ferritin of 456, normal iron, normal iron sat, and low TIBC. Hematology was consulted and patient underwent a bone marrow biopsy on 04/06. The bone marrow biopsy was essentially unremarkable except for some few morphologic abnormalities in the megakaryocytes and erythroid cells. A FISH analysis is going to be performed. These results were discussed with the patient's mother. The patient needs to follow up with Dr. Cotto on April 14 at 3 p.m. for final results. 3. Acute kidney injury on CKD stage 3: The patient had a creatinine of 1.5 on admission, which has worsened to 1.6 after her bronchoscopy. The patient was given IV fluids and her creatinine improved to 1.39 on the day of discharge. The patient should consider following up outpatient with a occupational therapy supervisor. 4. Hyperkalemia: The patient had a potassium of 5.6 on 04/07. She is given IV fluids and Kayexalate with resolution. Potassium on the day of discharge is 4.1. 5. Type 2 diabetes: The patient was originally placed on her home insulin regimen of 50 units at bedtime and 45 units in the morning. However, subsequently in her hospital course, she did not require any long-acting insulin and her blood sugars were actually in the 90s to 100s. Her Lantus was discontinued and was reordered on 04/07 at only 10 units at bedtime. Her a.m. fasting blood sugar today was 112. Therefore, on discharge, she will be resumed on 10 units subcu b.i.d. of Lantus. She is advised to resume her home sliding scale. She can go back to her prior dose if needed if her blood sugars remain elevated. Hemoglobin A1c was checked in her hospital and was 5.6. 6. Herpes labialis: The patient was given a brief prescription of acyclovir and her lesions have resolved. 7. Asthma: The patient will continue her Singulair. DISCHARGE PHYSICAL EXAMINATION: VITAL SIGNS: Temperature 97.7, heart rate 102, respiratory rate 20, O2 saturation 99% on room air, blood pressure 133/87. GENERAL: The patient is obese. She has developmental delay. CVS: Regular rate and rhythm with no murmurs, rubs, or gallops. LUNGS: Mild rales bilaterally. ABDOMEN: Positive bowel sounds, soft, nontender, nondistended. EXTREMITIES: No edema. PERTINENT LABORATORY DATA: CBC, 04/08: White blood cell count 3.3, hemoglobin 9.0, hematocrit 27.5, platelet count 122. BMP, 04/08: Shows creatinine of 1.39. Iron panel: Iron was 50, TIBC 206, iron sat 24, ferritin 456. Vitamin B12 :903. Folate :8.8. UA: Urine creatinine 43, urine microalbumin 18, microalbumin to creatinine ratio 426. Bronchial washings, 04/06: Shows cloudy and turbid fluid with 423 white blood cells, 40% seg neutrophils, 19% lymphocytes, 1% eosinophils. There are no malignant cells identified. PERTINENT IMAGING: CTA thorax: Shows multifocal infiltrates. Splenomegaly. Right infraclavicular lymphadenopathy, left axillary lymphadenopathy, right tracheal lymphadenopathy. Please see full report for details. PATHOLOGY RESULTS: Bone marrow biopsy, 04/06: Shows normocellular marrow with trilineage hematopoiesis. Mild morphological changes seen in the megakaryocytes and erythroid cells. Lung biopsy, 04/06: Shows no malignancy identified. No granuloma or viral cytopathic effect. Benign lung parenchymal and bronchial tissue with chronic inflammation. EBUS of lymph node: Shows no malignant I cells identified. DISCHARGE CONDITION: Stable for home. ACTIVITY: As tolerated. DIET: Diabetic diet. DISCHARGE MEDICATIONS: New prescriptions: Cefdinir 300 mg p.o. q.12 hours; tramadol 50 mg p.o. q.6 hours p.r.n., quantity 12; insulin glargine 10 units subcu b.i.d.; famotidine 20 mg p.o. daily. Continued medications: Rest of home medications were resumed. Please refer to discharge work sheet. DISCHARGE INSTRUCTIONS: The patient needs to follow up with her PCP in a week, Dr. Mahajan in a week, and Dr. Cotto on April 14 at 3 p.m. She needs to take cefdinir for 10 more days. FISH testing was performed on her bone marrow biopsy and this needs to be followed up. Job ID: [id number] [facility]
--- NOTE | 2019-04-09 21:41 | PQF ---
RENU NAIK UMA [id number] [facility] [place] [id number] CLINICAL DOCUMENTATION CLARIFICATION FORM: POST DISCHARGE Addendum to original discharge summary date: ____ Late entry note date: __ DATE:04/09/2019 ATTN: FELICIA DRAPER Please exercise your independent, professional judgment in responding to the clarification form. Clinical indicators are provided on the bottom of this form for your review Please check appropriate box(es): [X ] Sepsis due to: (Pna, UTI, gangrenous gall bladder, etc.) pneumonia Due to: [ ] Device (please specify) [ ] Implant [ ] Graft [ ] Infusion [ ] SIRS due to non-infectious process (please specify etiology) [ ] with organ dysfunction [ ] without organ dysfunction [ ] Severe sepsis with acute organ dysfunction of: (Examples: respiratory failure, encephalopathy, acute kidney failure, other) [ ] Septic Shock [ ] Localized infection without sepsis [ ] Other diagnosis [ ] Unable to determine In addition, please specify: Present on Admission (POA): [ ] Yes [ ] No [ ] Unable to determine For continuity of documentation, please document condition throughout progress notes and discharge summary. Thank You. CLINICAL INDICATORS - SIGNS / SYMPTOMS / LABS SIRS scoring:Respiratory rate >20/ min, PaCo2<32 mmhg, Heart rate >90, Yes patient did meet at least 2 criteria for STEP1.,Productive cough/ PNA, Yes patient did meet at least 1 criteria for STEP 2- Documented in ED on 04/01 by Tani Ravi [id number] in ED on 04/01 by Tani Ravi [id number] in ED on 04/01 by Tani Ravi Tachycardia-Documented in ED on 04/01 by Tani Ravi Pneumonia-Documented in ED on 04/01 by Tani Ravi WBC-1.3-Documented in laboratory Acute hypoxic respiratory failure secondary to recurrent pneumonia-Documented in Discharge summary on 04/08 by Cody morris TU-Documented in Discharge summary on 04/08 by Codybaldomero morris RISK FACTORS Acute hypoxic respiratory failure secondary to recurrent pneumonia-Documented in Discharge summary on 04/08 by Cody morris TU-Documented in Discharge summary on 04/08 by Codybaldomero morris TREATMENTS: Rocephin 1 gm IV-Documented in Medication snapshot Azithromycin 250 mg IV -Documented in Medication snapshot Azithromycin 250 mg PO-Documented in Medication snapshot [employer] Winform Viewer (This form is maintained as a part of the permanent medical record) 2014 [employer]. All Rights Reserved [email or web address] [phone] HAYDEE
[2019-04-10 16:09] LABS: Fungus Stain Final report (.)
== END 2019-04-08 13:53 | disposition home or self-care (01) | DRG 871 ==
LOC: ERS 02:52 → ERHOLD 04:55 → 3SE 11:35 → ONC 04-04 23:12
PROVIDERS: ADMIT Internal Medicine; ATTEND Internal Medicine
PROC: 07DR3ZX Extraction of Iliac Bone Marrow, Percutaneous Approach, Diagnostic (ICD-10-PCS; principal; 2019-04-06)
PROC: 0B9J8ZX Drainage of Left Lower Lung Lobe, Via Natural or Artificial Opening Endoscopic, Diagnostic (ICD-10-PCS; 2019-04-06)
PROC: 0B9B8ZZ Drainage of Left Lower Lobe Bronchus, Via Natural or Artificial Opening Endoscopic (ICD-10-PCS; 2019-04-06)
DX: A41.9 Sepsis, unspecified organism (principal); J18.9 Pneumonia, unspecified organism; J96.21 Acute and chronic respiratory failure with hypoxia; J45.901 Unspecified asthma with (acute) exacerbation; D61.818 Other pancytopenia; E87.2 Acidosis; N17.9 Acute kidney failure, unspecified; B00.89 Other herpesviral infection; R40.2362 Coma scale, best motor response, obeys commands, at arrival to emergency department; R40.2142 Coma scale, eyes open, spontaneous, at arrival to emergency department; R40.2252 Coma scale, best verbal response, oriented, at arrival to emergency department; I12.9 Hypertensive chronic kidney disease with stage 1 through stage 4 chronic kidney disease, or unspecified chronic kidney disease; E11.22 Type 2 diabetes mellitus with diabetic chronic kidney disease; E66.9 Obesity, unspecified; Z68.35 Body mass index [BMI] 35.0-35.9, adult; Z88.1 Allergy status to other antibiotic agents; Z88.8 Allergy status to other drugs, medicaments and biological substances; N18.3 Chronic kidney disease, stage 3 (moderate); F79 Unspecified intellectual disabilities; D64.9 Anemia, unspecified; E87.5 Hyperkalemia; E11.65 Type 2 diabetes mellitus with hyperglycemia; T38.0X5A Adverse effect of glucocorticoids and synthetic analogues, initial encounter; R59.1 Generalized enlarged lymph nodes; R19.7 Diarrhea, unspecified
CPT/HCPCS: 20225; 36415; 36416; 71275; 77002; 80048; 82010; 82043; 82607; 82728; 82746; 82805; 83036; 83540; 83550; 83605; 83930; 85025; 85027; 85060; 85097; 85610; 85730; 87070; 87102; 87116; 87205; 87206; 87324; 87449; 88104; 88112; 88172; 88173; 88177; 88184; 88237; 88305; 88311; 88312; 88313; 88341; 88342; 89051; 94640; 96361; 96365; J0456; J0696; J1100; J1815; J2001; J2060; J2250; J2405; J2550; J2704; J2920; J3010; J3490; J7050; J7620; Q9967

== ENCOUNTER 2019-11-19 22:04 | Inpatient (IN) | payer OTHER ==
[2019-11-19 22:54] LABS: #Eosinphils 0.1 thou/uL (0.0-0.7); #Lymphocytes 0.9 thou/uL (1.20-3.40); #Monocytes 0.3 thou/uL (0.11-0.59); %Basophils 0.8 % (0.0-1.0); %Eosinophils 1.8 % (0.0-10.0); %Lymphocytes 28.5 % (21.0-51.0); %Monocytes 8.6 % (0.0-10.0); %Neutrophils 60.4 % (42.0-75.0); Hemoglobin 8.3 g/dL (12.0-16.0); Mean Corpuscular HGB CONC 33.4 g/dL (32.0-36.0); Mean Corpuscular Hemoglobin 28.9 pg (27.0-31.0); Mean Corpuscular Volume 86.4 fL (78.0-98.0); Mean Platelet Volume 9.9 fL (7.4-10.4); Platelet Count 46 thou/uL (130-400); RBC Distribution Width 14.9 % (11.5-14.5); Red Blood Cell (RBC) Count 2.88 mill/uL (4.20-5.40); White Blood Cell (WBC) Count 3.3 thou/uL (4.8-10.8)
[2019-11-19] MEDS ORDERED: Magnesium 2 GM/50 ML BAG (IN WATER) ONE (23:03)
[2019-11-19] MEDS ORDERED: Dexamethasone 10 MG/ML VIAL ONE (23:03)
[2019-11-19 23:22] LABS: ALT (SGPT) Less than 7 U/L (8-55); AST (SGOT) 10 U/L (5-34); Albumin 3.5 g/dL (3.5-5.0); Alkaline Phosphatase 52 U/L (40-110); Anion Gap 13 mmol/L (10-20); BUN (Urea Nitrogen) 20 mg/dL (7.0-18.7); Calc. Creatinine Clearance 0 mL/min (70-130); Calcium 8.4 mg/dL (7.8-10.44); Carbon Dioxide 20 mmol/L (22-29); Chloride 105 mmol/L (98-107); Estimated GFR-MDRD 35; Globulin 2.2 g/dL (2.4-3.5); Glucose 259 mg/dL (70-105); Potassium 4.4 mmol/L (3.5-5.1); Protein, Total 5.7 g/dL (6.0-8.3); Sodium 134 mmol/L (136-145)
[2019-11-20 01:23] LABS: SARS-CoV-2 NAA Rapid Test Not Detected (NotDetected)
[2019-11-20] MEDS ORDERED: Guaifenesin DM 100-10/5 ML UDCUP PO PRN (02:04)
[2019-11-20] MEDS ORDERED: Labetalol HCl 100 MG/20 ML VIAL SLOW IVP PRN (02:04)
[2019-11-20] MEDS ORDERED: Promethazine HCl 12.5 MG in Sodium Chloride 0.9% 50 ML IVPB PRN (02:04)
[2019-11-20] MEDS ORDERED: cloNIDine 0.1 MG TAB PO PRN (02:04)
[2019-11-20] MEDS ORDERED: hydrALAZINE 20 MG/ML VIAL SLOW IVP PRN (02:04)
[2019-11-20] MEDS ORDERED: Fioricet 325/50/40 mg Tablet PO PRN (02:06)
[2019-11-20] MEDS ORDERED: Non-Formulary Item 1 EACH (Ventolin Hfa Inhaler [Ventolin Hfa Inhaler] 60 PUFF Aer) INH PRN (02:06)
--- NOTE | 2019-11-20 02:10 | PDOC.HHP ---
Hospitalist HPI - History of Present Illness Shortness of breath History of Present Illness: Patient is a 29 year old female with PMH T2DM, autoimmune disease, CKD who presents as transfer from [place] for shortness of breath. Patient presented there for fever, cough, sore throat and shortness of breath beginning this AM. At outside ED, patint noted to be tachycardic and febrile, SpO2 93% on RA, CXR performed and revealed diffuse opacities. D dimer elevated at 0.5, no CTA performed since she has already had several this year. She was placed on O2 for comfort, given levaquin, transferred for further care. Covid swab performed but not rapid test and results pending. Hospitalist ROS - Review of Systems Constitutional: denies: fever, chills, sweats, weakness, malaise, other Eyes: denies: pain, vision change, conjunctivae inflammation, eyelid inflammation, redness, other ENT: reports: throat pain. denies: ear pain, ear discharge, nose pain, nose discharge, nose congestion, mouth pain, mouth swelling, throat swelling, other Respiratory: reports: cough, shortness of breath, pleuritic pain. denies: dry, hemoptysis, SOB with excertion, sputum, wheezing, other Cardiovascular: denies: chest pain, palpitations, orthopnea, paroxysmal noc. dyspnea, edema, light headedness, other Gastrointestinal: denies: nausea, vomiting, abdominal pain, diarrhea, constipation, melena, hematochezia, other Genitourinary: denies: dysuria, frequency, incontinence, hematuria, retention, other Musculoskeletal: denies: neck pain, shoulder pain, arm pain, back pain, hand juan jose n, leg pain, foot pain, other Skin: denies: rash, lesions, alfredo, bruising, other Neurological: denies: weakness, numbness, incoordination, change in speech, confusion, seizures, other All other systems reviewed; all pertinent +/- noted in HPI/Subj Hospitalist History - Past Medical History Heme/Onc: reports: Other (idopathic purpura) Hepatobiliary: reports: no pertinent history Psych: reports: Other (Developmental delay) Musculoskeletal: reports: no pertinent history Rheumatologic: reports: no pertinent history Renal/: reports: no pertinent history Endocrine: reports: Diabetes Dermatology: reports: no pertinent history Other Medical History: Anemia, Asthma. Autoimmune blood disorder (unsure of name), Type 2 Diabetes. - Past Surgical History Past Surgical History: reports: no pertinent history Other Surgical History: UNK SX PER PT, "I HAD STREP THROAT IN MY STOMACH AND THEY CUT ME OPEN IN MY STOMACH". - Family History Family History: reports: no pertinent history - Social History Smoking Status: Never smoker Alcohol: reports: None Drugs: reports: none - Exam General Appearance: NAD, awake alert Eye: PERRL, anicteric sclera ENT: normocephalic atraumatic, no oropharyngeal lesions, moist mucosa Neck: supple, symmetric, no JVD, no thyromegaly, no lymphadenopathy, no carotid bruit Heart: RRR, no murmur, no gallops, no rubs, normal peripheral pulses Respiratory: CTAB, no wheezes, no rales, no ronchi, normal chest expansion, no tachypnea, normal percussion Gastrointestinal: soft, non-tender, non-distended, normal bowel sounds, no palpable masses, no hepatomegaly, no splenomegaly, no bruit Extremities: no cyanosis, no clubbing, no edema Skin: normal turgor, no lesions, no rashes Neurological: cranial nerve grossly intact, normal sensation to touch, no weakness, no focal deficits, no new deficit Musculoskeletal: normal tone, normal strength, no muscle wasting Psychiatric: normal affect, normal behavior, A&O x 3 Hospitalist Results - Labs Result Diagrams: 11/19/19 22:31 11/19/19 22:31 Lab results: WBC 3.3 thou/uL (4.8-10.8) L 11/19/19 22:31 Hgb 8.3 g/dL (12.0-16.0) L 11/19/19 22:31 Hct 24.9 % (36.0-47.0) L 11/19/19 22:31 MCV 86.4 fL (78.0-98.0) 11/19/19 22:31 Plt Count 46 thou/uL (130-400) L 11/19/19 22:31 Neutrophils % 60.4 % (42.0-75.0) 11/19/19 22:31 Sodium 134 mmol/L (136-145) L 11/19/19 22:31 Potassium 4.4 mmol/L (3.5-5.1) 11/19/19 22:31 Chloride 105 mmol/L (98-107) 11/19/19 22:31 Carbon Dioxide 20 mmol/L (22-29) L 11/19/19 22:31 BUN 20 mg/dL (7.0-18.7) H 11/19/19 22:31 Creatinine 1.72 mg/dL (0.6-1.1) H 11/19/19 22:31 Glucose 259 mg/dL (70-105) H 11/19/19 22:31 Calcium 8.4 mg/dL (7.8-10.44) 11/19/19 22:31 Total Bilirubin 1.0 mg/dL (0.2-1.2) 11/19/19 22:31 AST 10 U/L (5-34) 11/19/19 22:31 ALT Less than 7 U/L (8-55) L 11/19/19 22:31 Alkaline Phosphatase 52 U/L (40-110) 11/19/19 22:31 Troponin I Less than 0.010 ng/mL (< 0.028) 11/19/19 22:31 B-Natriuretic Peptide 57.6 pg/mL (0-100) 11/19/19 22:29 Serum Total Protein 5.7 g/dL (6.0-8.3) L 11/19/19 22:31 Albumin 3.5 g/dL (3.5-5.0) 11/19/19 22:31 Additional comment: VITAL SIGNS [facility] Nov 20, 2019 00:35 DARLEEN Aquino, Shannan BP: 121/96 MAP: 104 Pulse: 117 Resp: 23 Temp: 99.0 (Oral) Pain: 0 O2 sat: 96 on (2L Oxygen) Time: 11/20/2019 00:35. labs, ED documents, imaging reports reviewed from here and outside ER - EKG Interpretation EKG: sinus tachycardia, rate 117, CA 142, QTc 474, no acute ST changes or AVB Hospitalist H&P A/P - Plan Plan: Patient is a 29 year old female with PMH T2DM, autoimmune disease, CKD who presents as transfer from [place] for shortness of breath. # bilateral pneumonia - suspected covid 19, test pending # sepsis due to pneumonia - admit to covid unit, precautions ordered - continue levaquin, allergies noted - decadron - proventil inhaler PRN, continue home inhalers # T2DM - continue 10 units long acting insulin BID, SSI # elevated D dimer - DVT ppx lovenox, DVT duplex ordered and pending, patient CXR has reason for symptoms so will defer CTA for now # history of autoimmune disease - noted # CKD III - trend Cr DVT/GI ppx Full code Discussed with mother and patient, no intubation unless mother agrees, will update code status
[2019-11-20] MEDS ORDERED: Fluticasone Propionate Nasal Spray 16 gm Bottle NASAL PRN (02:13)
[2019-11-20] MEDS ORDERED: Electrolyte Replacement Protoc 1 EACH EACH FS SCH (02:15)
[2019-11-20] MEDS ORDERED: Albuterol 200 PUFF (6.7GM INHALER) INH PRN (02:17)
[2019-11-20] MEDS ORDERED: Dextrose 5% in Water 1,000 ML IV PRN (02:18)
[2019-11-20] MEDS ORDERED: Dextrose 50% Abboject 50 ML SYRINGE SLOW IVP PRN (02:18)
[2019-11-20 02:50] VITALS: BMI 36.2
[2019-11-20] MEDS: HumaLOG 300 UNITS/3 ML VIAL SC PRN ×5 (04:14→23:12)
--- NOTE | 2019-11-20 07:39 | RAD ---
FRONTAL RADIOGRAPH CHEST: DATE: 11/19/2019 COMPARISON: Prior study on same day. HISTORY: Shortness of breath and fever. FINDINGS/IMPRESSION: The patient is slightly rotated to the right, limiting detailed assessment. There is hazy increased d ensity in the left perihilar region with linear density in the mid left lung one which may signify in filtrate or volume loss. Recommend short-term follow-up PA and lateral imaging of the chest following treatment to document resolution. POS: OFF
[2019-11-20] MEDS: Mometasone 200 MCG/Formoterol 5 MCG 120 PUFF INHALER INH SCH ×2 (07:56→18:41)
[2019-11-20] MEDS ORDERED: Heparin 5,000 UNITS/ML VIAL SC SCH (09:00)
[2019-11-20] MEDS: Insulin Glargine 10 UNITS in Pre-Filled Syringe 1 EACH SC SCH ×2 (10:24→21:37)
[2019-11-20] MEDS: Folic Acid 1 MG TAB PO SCH (10:24)
[2019-11-20] MEDS: Famotidine 20 MG TAB PO SCH ×2 (10:25→21:26)
[2019-11-20] MEDS: Pregabalin 25 MG CAP PO SCH ×2 (10:25→21:37)
[2019-11-20] MEDS: guaiFENesin ER 600 MG TAB PO SCH ×2 (10:25→21:26)
[2019-11-20 11:24] LABS: Anion Gap 17 mmol/L (10-20); BUN (Urea Nitrogen) 28 mg/dL (7.0-18.7); CRP (Inflammatory) 15.23 mg/dL (= or < 0.5); Calc. Creatinine Clearance 69 mL/min (70-130); Calcium 8.8 mg/dL (7.8-10.44); Carbon Dioxide 16 mmol/L (22-29); Chloride 103 mmol/L (98-107); Estimated GFR-MDRD 33; Glucose 535 mg/dL (70-105); Potassium 5.4 mmol/L (3.5-5.1); Sodium 131 mmol/L (136-145)
[2019-11-20 11:37] LABS: #Eosinphils 0.1 thou/uL (0.0-0.7); #Lymphocytes 0.4 thou/uL (1.20-3.40); #Monocytes 0.1 thou/uL (0.11-0.59); #Neutrophils 1.9 thou/uL (1.40-6.50); %Eosinophils 2.3 % (0.0-10.0); %Lymphocytes 17.5 % (21.0-51.0); %Monocytes 2.1 % (0.0-10.0); %Neutrophils 78.1 % (42.0-75.0); Band 5 % (5-11); Eosinophils 1 % (0-10); Hemoglobin 8.9 g/dL (12.0-16.0); Hypochromia SLIGHT = 6-15 cells (100X) (0-5/hpf); Lymphocytes 16 % (21-51); MDiff Complete? YES; Mean Corpuscular HGB CONC 32.3 g/dL (32.0-36.0); Mean Corpuscular Hemoglobin 28.5 pg (27.0-31.0); Mean Corpuscular Volume 88.2 fL (78.0-98.0); Mean Platelet Volume 10.4 fL (7.4-10.4); Monocytes 3 % (0-10); Neutrophil 75 % (42-75); Platelet Count 51 thou/uL (130-400); Platelet Morphology Comment Appears Decreased; Polychromasia SLIGHT = 2-3 cells (100X) (0-2/hpf); RBC Distribution Width 14.8 % (11.5-14.5); Red Blood Cell (RBC) Count 3.13 mill/uL (4.20-5.40); White Blood Cell (WBC) Count 2.5 thou/uL (4.8-10.8)
[2019-11-20] MEDS ORDERED: Electrolyte Replacement Protocol FS PRN (11:45)
[2019-11-20] MEDS ORDERED: Magnesium 2 GM/50 ML 2 GM in Premix Bag 1 BAG IVPB SCH (12:00)
[2019-11-20] MEDS ORDERED: Insulin Glargine 15 UNITS in Pre-Filled Syringe 1 EACH SC SCH (13:00)
[2019-11-20] MEDS ORDERED: Sodium Chloride 0.9% 1,000 ML IV SCH ×2 (13:00→19:00)
[2019-11-20 15:47] LABS: Bacteria/HPF None Seen HPF (None Seen); Bilirubin Negative (Negative); Blood, Urine 1+ (Negative); Clarity Clear (Clear); Glucose, Urine (Dipstick) Greater than 1000 mg/dL (Negative); Ketone, Urine Negative (Negative); Leukocyte Negative Leu/uL (Negative); Nitrite Negative (Negative); Protein, Urine (Dipstick) 30 mg/dL (Neg-Trace); RBC/HPF 0-3 HPF (0-3); Specific Gravity, Urine 1.017 (1.002-1.036); Squamous Epithelial 0-3 HPF (0-3); Urine Culture Reflex No No; Urobilinogen Normal mg/dL (Less than 2); WBC/HPF 0-3 HPF (0-3)
[2019-11-20 18:27] LABS: Anion Gap 19 mmol/L (10-20); BUN (Urea Nitrogen) 32 mg/dL (7.0-18.7); Calc. Creatinine Clearance 70 mL/min (70-130); Calcium 8.6 mg/dL (7.8-10.44); Carbon Dioxide 15 mmol/L (22-29); Chloride 104 mmol/L (98-107); Estimated GFR-MDRD 33; Potassium 4.9 mmol/L (3.5-5.1); Sodium 133 mmol/L (136-145)
[2019-11-20 18:51] LABS: Glucose 596 mg/dL (70-105)
[2019-11-20] MEDS ORDERED: Lactated Ringer's 1,000 ML IV SCH (19:15)
--- NOTE | 2019-11-20 19:25 | CT ---
CT CHEST, ABDOMEN AND PELVIS WITHOUT IV CONTRAST: 11/20/19 HISTORY: Fever, cough, splenomegaly, lymphadenopathy. COMPARISON: CT thorax on 10/03/[address] abdomen on 09/29/19. CT THORAX: Lack of intravenous contrast limits evaluation of vascular structures and mediastinum. As noted on pr ior CT scan examination, there is an increase in number as well as multiple enlarged mediastinal lymp h nodes. There are also mildly enlarged right axillary lymph nodes again seen. Number and size of lym ph nodes is overall similar to the prior exam. There is nodular parenchymal opacity present in the left upper lobe which was not seen on prior exam. Increased interstitial densities are also seen involving the upper lung zones bilaterally, greater o n the left. There is evidence of improvement in atelectasis in the region of the right middle lobe an d lingula compared to prior study. The nodular parenchymal density in the left upper lobe measures ap proximately 2 cm. Additional mild patchy density is also present. This may represent pneumonia in the correct clinical scenario. Neoplastic process cannot be excluded, and follow-up to complete resoluti on is recommended. Focal nodular density is seen in the right upper lobe measuring 7 mm and may repre sent pulmonary nodular focal area of pneumonitis. Calcification right lobe of the thyroid gland is again seen. There is irregularity involving the right sternoclavicular joint with widening of the joint space and suggestion of erosions. This is unchanged compared to prior study as well as a study on 02/28/19. Fi ndings may be secondary to septic arthritis. There is now greater degree of sclerosis along the osseo us margins of the manubrium and the head of the clavicle. No additional suspicious lytic or scleroti c osseous lesions are identified. CT ABDOMEN AND PELVIS: The spleen remains markedly enlarged measuring 20 cm in craniocaudal dimensions. Again noted is moder ate left hydronephrosis. Left ureter is normal in caliber and this may represent UPJ type obstruction . No hydronephrosis is seen on the right. No renal or ureteral calculi are visualized. Lack of intravenous contrast limits sensitivity for evaluation of parenchymal organs. However, the li dennys, pancreas, bilateral adrenal glands, right kidney, urinary bladder, and uterus demonstrate a carisa sly normal nonenhanced CT appearance. There is a hypodense cystic appearing lesion in the left adnexa measuring 2.3 cm which may represent ovarian cyst. Opacified loops of small bowel are normal in caliber. The appendix is visualized and normal in calib er. Again noted is increase in number of aortocaval lymph nodes some of which are mildly enlarged. Larges t left periaortic lymph node measures approximately 1.5 cm in short axis dimension with additional en larged aortocaval lymph nodes seen. There is also enlargement of lymph nodes seen just anterior to th e right psoas muscle along the iliac chain largest measuring 1.1 cm in short axis dimension. No free fluid or free collection is seen in the abdomen or pelvis. No suspicious lytic or sclerotic osseous lesions are identified. IMPRESSION: 1. Interval development of a nodular parenchymal opacity left lung base with increased interstit ial opacities bilaterally. Findings may be related to infectious process including focal area of pneu monia in the left upper lobe. However, neoplastic process left upper lobe could not be excluded, and follow-up to complete resolution is recommended. 2. Focal nodular density right upper lobe measuring 7 mm may represent pulmonary nodular focal a cristobal of pneumonitis. This is not visualized on prior exam. 3. Marked splenomegaly. 4. Extensive lymphadenopathy in the chest, abdomen, and pelvis unchanged when compared to prior studies. Findings again may be on the basis of reactive change related to neoplastic process such as lymphomna. 5. Residual inflammatory changes involving the right sternoclavicular joint. Findings may be rel ated to sequela of septic arthritis. POS: EMMETT
[2019-11-20] MEDS: Acetaminophen 325 MG TAB PO PRN (19:34)
[2019-11-20] MEDS ORDERED: Dexamethasone 4 mg/ml Vial SLOW IVP SCH (21:00)
--- NOTE | 2019-11-20 21:07 | CON ---
DATE OF CONSULTATION: 11/20/2019 REASON FOR CONSULTATION: Cough, dyspnea, fever. HISTORY OF PRESENT ILLNESS: A 29-year-old known to me from prior visits. She has type 2 or type 1 diabetes, mental retardation, renal insufficiency, multiple recurrent infections with various organisms, chronic pancytopenia with splenomegaly and lymphadenopathy with normal trilineage hematopoiesis, normal immunoglobulin quantitation and no evidence of autoimmune antibody associated process. She has had exploratory laparotomy by Dr. Alexis. He did not find mesenteric lymphadenopathy, but I think most of her lymph nodes are in the retroperitoneal area. She had normal complement levels as well. The hepatitis serology has been negative, HIV negative and tuberculosis QuantiFERON test was negative. She had cytogenetics done in April, which was within normal limits. So, now she presents with respiratory symptoms, mostly shortness of breath, fever, chills, cough, and sore throat and she was having some pain as well, which was rated 10/10. Could not localize it though. Initial findings, BP 130/79, pulse 123, O2 saturations were 93% on room air. The exam remarkable for mild diffuse wheezing noted. She was tachycardic. The abdomen had splenomegaly in the physical examination. Initial laboratory data included sodium 134, creatinine 1.72, and transaminases are normal. Alkaline phosphatase normal. Albumin 3.5, globulin 2.2. White cell count is 3.3, hemoglobin 8.3, MCV 86, platelets 46,000, 60% neutrophils, 28% lymphocytes. D-dimer 0.88. COVID was not detected on November 19. The patient had a chest x-ray yesterday, which showed hazy density, left perihilar region, linear density with mid left lung region. Currently, Ms. Preciado is awake. She is obviously wheezing expiratorily. She does not appear in acute distress. No headaches. No visual symptoms. No chest pain or abdominal pain. She has pain in the posterior thighs, but not in the joints. No diarrhea. No genitourinary symptoms. PAST MEDICAL HISTORY: Type 1 or 2 diabetes, not clear which type, neuropathy, recurrent infections including pneumonia due to strep pneumoniae x2, one time with bacteremia, UTIs, E coli, soft tissue cutaneous infections, dental infections. 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 The kidney abscess with MSSA bacteremia, which resolved. She has had also chronic pancytopenia, splenomegaly, lymphadenopathy in the retroperitoneal area, mesenteric area as well as in the mediastinal area. She has had a bone marrow biopsy, which identified normal trilinear hematopoiesis. PAST SURGICAL HISTORY: Toe amputations, bronchoscopy, bronchial washings, fine-needle aspiration with no malignancies shown with a polymorphic lymphoid population. She has had exploratory laparotomy, which did not identify any enlarged lymph node by Dr. Alexis recently and a gastric biopsy with mild chronic inactive gastritis. ALLERGIES: CEPHALEXIN, LISINOPRIL, LOSARTAN, BACTRIM. SOCIAL HISTORY: Lives with parents or mother. Never smoker. Stated that she is . FAMILY HISTORY: Noncontributory except that apparently she was exposed to a young student early on. PHYSICAL EXAMINATION: VITAL SIGNS: T-max 98.4, BP 120/70, pulse 103, respirations 20, O2 saturation 93% on room air. HEENT: Little flushed in the facial area. Ocular movements conjugate. No lymphadenopathy in the axillary region or groin. She has no skin lesions. Oral cavity normal. NECK: Supple. LUNGS: With diffuse expiratory wheezing. No crackles. HEART: S1, S2. Regular rate. No murmurs. ABDOMEN: With splenomegaly noted 8 cm below the left costal margin. No hepatomegaly. No ascites. No bladder distention. EXTREMITIES: No joint inflammatory activity. Moves extremities equally. No edema. Pulses 1+ in dorsalis pedis. NEUROLOGIC: She is awake, knows her name, but has quite limited cognitive function. She has a hard time in remembering sequence of events. She has poor insight. LABORATORY DATA: The latest labs: White cell count 2.5, hemoglobin 8.9, MCV 88, platelets 51,000 with 75% neutrophils. Creatinine is up to 1.8, glucose 535 with carbon dioxide 16. Anion gap was 17. Most of anion gaps in the past are normal, which leads me to believe that she has type 2 diabetes. ASSESSMENT: Chronic lymphadenopathy, pancytopenia with hypersplenism and severe splenomegaly with a normal trilinear hematopoiesis, type 2 diabetes, and recurrent infections including soft tissue, pneumonias, kidney infections sometimes with hydronephrosis and bacteremias. The evaluation for the common forms of immunodeficiency has been negative and we are considering an alternate form less common, particularly autoimmune lymphoproliferative disorder. EBV associated immunodeficiency is considered as well and we will check EBV DNA titer and lysosomal storage diseases are less likely since the onset of expression of her problem has been in the 4th decade of her life and a number of features are missing. Finally, we will recheck her CT of chest and abdomen. If she still has ground-glass opacities, we will recheck for COVID in view of her exposure history to a school-age child who is going to class in school. Job ID: [id number] MTDD
[2019-11-20] MEDS: Montelukast Sodium 10 mg Tablet PO SCH (21:37)
[2019-11-21] MEDS: Melatonin 3 MG TAB PO PRN ×2 (00:10→22:59)
[2019-11-21] MEDS: HumaLOG 300 UNITS/3 ML VIAL SC PRN ×6 (01:11→22:21)
[2019-11-21] MEDS: Mometasone 200 MCG/Formoterol 5 MCG 120 PUFF INHALER INH SCH ×2 (06:32→19:50)
[2019-11-21] MEDS: Acetaminophen 325 MG TAB PO PRN ×2 (06:42→14:30)
[2019-11-21] MEDS: Ondansetron PF 4 MG/2 ML Vial IVP PRN (07:34)
[2019-11-21 07:36] LABS: Phosphorus 3.6 mg/dL (2.3-4.7)
[2019-11-21 07:38] LABS: ALT (SGPT) 7 U/L (8-55); AST (SGOT) 5 U/L (5-34); Albumin 3.6 g/dL (3.5-5.0); Alkaline Phosphatase 63 U/L (40-110); Anion Gap 18 mmol/L (10-20); BUN (Urea Nitrogen) 34 mg/dL (7.0-18.7); Bilirubin, Total 0.3 mg/dL (0.2-1.2); Calc. Creatinine Clearance 72 mL/min (70-130); Calcium 8.6 mg/dL (7.8-10.44); Carbon Dioxide 16 mmol/L (22-29); Chloride 108 mmol/L (98-107); Estimated GFR-MDRD 35; Globulin 2.4 g/dL (2.4-3.5); Glucose 338 mg/dL (70-105); Magnesium 2.3 mg/dL (1.6-2.6); Potassium 4.5 mmol/L (3.5-5.1); Sodium 137 mmol/L (136-145)
[2019-11-21] MEDS: Famotidine 20 MG TAB PO SCH ×2 (08:57→21:11)
[2019-11-21] MEDS: Folic Acid 1 MG TAB PO SCH (08:57)
[2019-11-21] MEDS: guaiFENesin ER 600 MG TAB PO SCH ×2 (08:58→21:11)
[2019-11-21] MEDS: Insulin Glargine 10 UNITS in Pre-Filled Syringe 1 EACH SC SCH (08:59)
[2019-11-21 09:03] LABS: #Lymphocytes 0.5 thou/uL (1.20-3.40); #Monocytes 0.2 thou/uL (0.11-0.59); %Eosinophils 0.4 % (0.0-10.0); %Lymphocytes 27.8 % (21.0-51.0); %Monocytes 11.3 % (0.0-10.0); %Neutrophils 60.5 % (42.0-75.0); Hemoglobin 7.6 g/dL (12.0-16.0); Mean Corpuscular HGB CONC 32.4 g/dL (32.0-36.0); Mean Corpuscular Hemoglobin 28.7 pg (27.0-31.0); Mean Corpuscular Volume 88.3 fL (78.0-98.0); Mean Platelet Volume 10.7 fL (7.4-10.4); Platelet Count 46 thou/uL (130-400); RBC Distribution Width 15.1 % (11.5-14.5); Red Blood Cell (RBC) Count 2.64 mill/uL (4.20-5.40); White Blood Cell (WBC) Count 1.7 thou/uL (4.8-10.8)
[2019-11-21] MEDS ORDERED: Sodium Chloride 0.9% 1,000 ML IV SCH (09:15)
[2019-11-21] MEDS: Sodium Chloride 0.45% 1,000 ML IV SCH ×2 (10:37→17:18)
[2019-11-21] MEDS: Pregabalin 25 MG CAP PO SCH ×2 (10:38→21:24)
--- NOTE | 2019-11-21 12:22 | EKG ---
Test Reason : Blood Pressure : / mmHG Vent. Rate : 117 BPM Atrial Rate : 117 BPM P-R Int : 142 ms QRS Dur : 074 ms QT Int : 340 ms P-R-T Axes : 054 058 054 degrees QTc Int : 474 ms Sinus tachycardia Otherwise normal ECG Confirmed by MANJEET DEL REAL ([id number]), non linear editor ALONSO BRENNAN ([id number]) on 11/21/2019 12:22:08 PM Referred By: Confirmed By:MANJEET DEL REAL
--- NOTE | 2019-11-21 17:26 | PDOC.HOSPP ---
- Subjective Encounter Date: 11/21/19 Encounter Time: 17:25 Subjective: Patient seen and examined for sepsis due to pneumonia. Feels generally weak and fatigued. Also has significant coughing with mild production. Short of breath on [id number] exertion. - Objective Vital Signs & Weight: Vital Signs (12 hours) Temp Pulse Resp BP Pulse Ox 11/21/19 08:19 97.7 F 98 20 122/82 98 11/21/19 08:00 98 11/21/19 06:30 85 20 96 Weight Weight 211 lb I&O: 11/20/19 11/21/19 11/22/19 06:59 06:59 06:59 Intake Total 480 2500 Balance 480 2500 Result Diagrams: 11/21/19 06:49 11/21/19 06:49 Additional Labs: Accuchecks 11/21/19 11/21/19 11/21/19 16:52 10:52 09:03 POC Glucose 323 H 313 H 345 H 11/21/19 11/20/19 05:43 20:10 POC Glucose 333 H 491 H Radiology Reviewed by me: Yes (CT chest left-sided pneumonia) Hospitalist ROS - Review of Systems Cardiovascular: denies: chest pain, palpitations, orthopnea, paroxysmal noc. dyspnea, edema, light headedness, other Gastrointestinal: denies: nausea, vomiting, abdominal pain, diarrhea, constipation, melena, hematochezia, other - Medication Medications: Active Medications Generic Name Dose Route Start Last Admin Trade Name Freq PRN Reason Stop Dose Admin Acetaminophen 650 mg 11/20/19 02:04 11/21/19 14:30 Acetaminophen 325 Mg Tab PO 650 mg Q4H PRN Administration Headache/Fever/Mild Pain (1-3) Albuterol/Ipratropium 3 ml 11/20/19 10:30 11/21/19 13:32 Ipratropium/Albuterol Sulfate 3 Ml Neb NEB 3 ml [id number] KHAI Administration Famotidine 20 mg 11/20/19 09:00 11/21/19 08:57 Famotidine 20 Mg Tab PO 20 mg BID KHAI Administration Folic Acid 1 mg 11/20/19 09:00 11/21/19 08:57 Folic Acid 1 Mg Tab PO 1 mg DAILY KHAI Administration Guaifenesin 600 mg 11/20/19 09:00 11/21/19 08:58 Guaifenesin Er 600 Mg Tab PO 600 mg Q12HR KHAI Administration Guaifenesin/Dextromethorphan 15 ml 11/20/19 02:04 11/21/19 14:33 Guaifenesin Dm 100-10/5 Ml Udcup PO 15 ml Q4H PRN Administration Cough Sodium Chloride 1,000 mls @ 125 mls/hr 11/21/19 09:30 11/21/19 17:18 1/2 Normal Saline IV 1,000 mls .Q8H KHAI Administration Insulin Human Lispro 0 units 11/20/19 12:50 11/21/19 17:18 Humalog 300 Units/3 Ml Vial SC 11 unit .AGGRESSIVE SLIDING PRN Administration Aggressive [employer]al Scale Insulin Human Lispro 0 units 11/20/19 22:45 11/21/19 01:11 Humalog 300 Units/3 Ml Vial SC 5 unit .BEDTIME SLIDING SC PRN Administration BEDTIME SLIDING SCALE Protocol Melatonin 3 mg 11/21/19 00:05 11/21/19 00:10 Melatonin 3 Mg Tab PO 3 mg HS PRN Administration Insomnia Mometasone Furoate/Formoterol Fumar 2 puff 11/20/19 06:30 11/21/19 06:32 Mometasone 200 Mcg/Formoterol 5 Mcg 120 Puff Inhaler INH 2 puff BID-RT KHAI Administration Montelukast Sodium 10 mg 11/20/19 21:00 11/20/19 21:37 Montelukast Sodium 10 Mg Tablet PO 10 mg QPM KHAI Administration Ondansetron HCl 4 mg 11/20/19 02:04 11/21/19 07:34 Ondansetron Pf 4 Mg/2 Ml Vial IVP 4 mg Q6H PRN Administration Nausea/Vomiting use 1st Pregabalin 25 mg 11/20/19 09:00 11/21/19 10:38 Pregabalin 25 Mg Cap PO 25 mg BID KHAI Administration Sodium Chloride 10 ml 11/20/19 04:00 11/21/19 07:35 Flush - Normal Saline 10 Ml Syringe IVF 10 ml PRN PRN Administration Saline Flush - Exam General Appearance: ill appearing Heart: RRR, no gallops, no rubs, normal peripheral pulses Respiratory: normal chest expansion, rales, rhonchi, tachypneic Gastrointestinal: soft, non-tender, no guarding, no rigidity Extremities: no cyanosis, no clubbing, no edema Extremities - other findings: No calf tenderness Neurological: no new deficit Musculoskeletal: generalized weakness Psychiatric: normal affect, A&O x 3 Hosp A/P (1) Sepsis due to pneumonia Code(s): J18.9 - PNEUMONIA, UNSPECIFIED ORGANISM; A41.9 - SEPSIS, UNSPECIFIED ORGANISM Status: Acute (2) Metabolic acidosis Code(s): E87.2 - ACIDOSIS Status: Acute (3) Hyponatremia Code(s): E87.1 - HYPO-OSMOLALITY AND HYPONATREMIA Status: Acute (4) Hyperkalemia Code(s): E87.5 - HYPERKALEMIA Status: Acute (5) Diabetes mellitus type 2 in obese Code(s): E11.69 - TYPE 2 DIABETES MELLITUS WITH OTHER SPECIFIED COMPLICATION; E66.9 - OBESITY, UNSPECIFIED Status: Chronic (6) Other issues per H&P - Plan 11/20 Patient received IV dexamethasone yesterday for suspected COVID 19 pneumonia. For this reason blood sugars have been significantly uncontrolled. Will continue IV fluids. Will give a additional dose of 20 units of Lantus now. Will continue Accu-Cheks q. 4 hourly with moderate sliding scale. Continue levofloxacin. Infectious disease input appreciated. Mira-Bernstein virus PCR pending. Continue Mucinex. DVT prophylaxis with SCDs due to thrombocytopenia. Continue nebulizer treatment every 4 hourly. A.m. labs.. Pneumonia is susp ected to be due to gram-negative organism.
[2019-11-21] MEDS ORDERED: Insulin Glargine 20 UNITS in Pre-Filled Syringe 1 EACH SC SCH (17:30)
[2019-11-21] MEDS ORDERED: Insulin Glargine 15 UNITS in Pre-Filled Syringe 1 EACH SC SCH (21:00)
[2019-11-21] MEDS: Montelukast Sodium 10 mg Tablet PO SCH (21:11)
[2019-11-22] MEDS: Ondansetron PF 4 MG/2 ML Vial IVP PRN ×2 (01:01→07:47)
[2019-11-22] MEDS: Sodium Chloride 0.45% 1,000 ML IV SCH ×2 (05:55→19:15)
[2019-11-22 06:09] LABS: #Lymphocytes 0.7 thou/uL (1.20-3.40); #Monocytes 0.2 thou/uL (0.11-0.59); #Neutrophils 1.1 thou/uL (1.40-6.50); %Basophils 1.6 % (0.0-1.0); %Eosinophils 1.1 % (0.0-10.0); %Lymphocytes 34.7 % (21.0-51.0); %Neutrophils 53.7 % (42.0-75.0); Hemoglobin 7.6 g/dL (12.0-16.0); Mean Corpuscular HGB CONC 31.9 g/dL (32.0-36.0); Mean Corpuscular Hemoglobin 28.7 pg (27.0-31.0); Mean Corpuscular Volume 89.9 fL (78.0-98.0); Mean Platelet Volume 9.6 fL (7.4-10.4); Platelet Count 51 thou/uL (130-400); RBC Distribution Width 15.1 % (11.5-14.5); Red Blood Cell (RBC) Count 2.65 mill/uL (4.20-5.40); White Blood Cell (WBC) Count 2.1 thou/uL (4.8-10.8)
[2019-11-22] MEDS: Mometasone 200 MCG/Formoterol 5 MCG 120 PUFF INHALER INH SCH ×2 (06:10→18:58)
[2019-11-22 06:14] LABS: Reticulocyte Count 4.2 % (0.5-1.5)
[2019-11-22 06:35] LABS: ALT (SGPT) 8 U/L (8-55); AST (SGOT) 7 U/L (5-34); Albumin 3.2 g/dL (3.5-5.0); Alkaline Phosphatase 48 U/L (40-110); Anion Gap 15 mmol/L (10-20); BUN (Urea Nitrogen) 33 mg/dL (7.0-18.7); Bilirubin, Total 0.2 mg/dL (0.2-1.2); Calc. Creatinine Clearance 82 mL/min (70-130); Calcium 8.2 mg/dL (7.8-10.44); Carbon Dioxide 17 mmol/L (22-29); Chloride 112 mmol/L (98-107); Estimated GFR-MDRD 40; Glucose 148 mg/dL (70-105); Potassium 4.5 mmol/L (3.5-5.1); Protein, Total 5.2 g/dL (6.0-8.3); Sodium 139 mmol/L (136-145)
[2019-11-22] MEDS: Acetaminophen 325 MG TAB PO PRN (06:37)
[2019-11-22] MEDS: Folic Acid 1 MG TAB PO SCH (09:41)
[2019-11-22] MEDS: guaiFENesin ER 600 MG TAB PO SCH ×2 (09:41→19:50)
[2019-11-22] MEDS: Famotidine 20 MG TAB PO SCH ×2 (09:41→19:48)
[2019-11-22] MEDS: Pregabalin 25 MG CAP PO SCH ×2 (09:41→21:18)
[2019-11-22] MEDS: Insulin Glargine 15 UNITS in Pre-Filled Syringe 1 EACH SC SCH (09:43)
[2019-11-22] MEDS: HumaLOG 300 UNITS/3 ML VIAL SC PRN ×2 (11:57→21:21)
[2019-11-22] MEDS ORDERED: traMADol HCl 50 MG TAB PO PRN (14:49)
--- NOTE | 2019-11-22 17:22 | PDOC.HOSPP ---
- Subjective Encounter Date: 11/22/19 Encounter Time: 14:00 Subjective: Patient seen and examined for pneumonia. Complains of significant cough along with wheezing and shortness of breath on moderate exertion. The cough is essentially dry. No chest pain or palpitations reported. - Objective Vital Signs & Weight: Vital Signs (12 hours) Temp Pulse Resp BP Pulse Ox 11/22/19 13:57 89 16 95 11/22/19 08:00 97.7 F 99 16 103/47 L 100 11/22/19 06:07 95 16 95 Weight Weight 211 lb I&O: 11/21/19 11/22/19 11/23/19 06:59 06:59 06:59 Intake Total 2500 Balance 2500 Result Diagrams: 11/22/19 05:45 11/22/19 05:45 Additional Labs: Accuchecks 11/22/19 11/22/19 11/22/19 15:37 11:20 06:05 POC Glucose 147 H 266 H 131 H 11/22/19 11/21/19 04:10 20:02 POC Glucose 137 H 308 H Radiology Reviewed by me: Yes (CT chestpneumonia) Hospitalist ROS - Review of Systems Respiratory: reports: cough, shortness of breath, SOB with excertion, wheezing Cardiovascular: denies: chest pain, palpitations, orthopnea, paroxysmal noc. dyspnea, edema, light headedness, other Gastrointestinal: denies: nausea, vomiting, abdominal pain, diarrhea, constipation, melena, hematochezia, other - Medication Medications: Active Medications Generic Name Dose Route Start Last Admin Trade Name Freq PRN Reason Stop Dose Admin Acetaminophen 650 mg 11/20/19 02:04 11/22/19 06:37 Acetaminophen 325 Mg Tab PO 650 mg Q4H PRN Administration Headache/Fever/Mild Pain (1-3) Acetaminophen/Butalbital/Caffeine 1 tab 11/20/19 02:06 11/22/19 15:49 Fioricet 325/50/40 Mg Tablet PO 11/25/19 02:07 1 tab Q4HR PRN Administration headache Albuterol/Ipratropium 3 ml 11/20/19 10:30 11/22/19 13:57 Ipratropium/Albuterol Sulfate 3 Ml Neb NEB 3 ml [id number] KHAI Administration Famotidine 20 mg 11/20/19 09:00 11/22/19 09:41 Famotidine 20 Mg Tab PO 20 mg BID KHAI Administration Folic Acid 1 mg 11/20/19 09:00 11/22/19 09:41 Folic Acid 1 Mg Tab PO 1 mg DAILY KHAI Administration Guaifenesin 600 mg 11/20/19 09:00 11/22/19 09:41 Guaifenesin Er 600 Mg Tab PO 600 mg Q12HR KHAI Administration Guaifenesin/Dextromethorphan 15 ml 11/20/19 02:04 11/21/19 14:33 Guaifenesin Dm 100-10/5 Ml Udcup PO 15 ml Q4H PRN Administration Cough Insulin Glargine 15 units/ 0.15 mls @ 0 mls/hr 11/22/19 09:00 11/22/19 09:43 Miscellaneous Medication SC 0.15 mls QAM KHAI Administration Levofloxacin 750 mg/ Device 150 mls @ 100 mls/hr 11/21/19 21:00 11/21/19 21:11 IVPB 150 mls 2100 KHAI Administration Insulin Human Lispro 0 units 11/20/19 12:50 11/22/19 11:57 Humalog 300 Units/3 Ml Vial SC 9 unit .AGGRESSIVE SLIDING PRN Administration Aggressive Correctional Scale Insulin Human Lispro 0 units 11/20/19 22:45 11/21/19 01:11 Humalog 300 Units/3 Ml Vial SC 5 unit .BEDTIME SLIDING SC PRN Administration BEDTIME SLIDING SCALE Protocol Melatonin 3 mg 11/21/19 00:05 11/21/19 22:59 Melatonin 3 Mg Tab PO 3 mg HS PRN Administration Insomnia Mometasone Furoate/Formoterol Fumar 2 puff 11/20/19 06:30 11/22/19 06:10 Mometasone 200 Mcg/Formoterol 5 Mcg 120 Puff Inhaler INH 2 puff BID-RT KHAI Administration Montelukast Sodium 10 mg 11/20/19 21:00 11/21/19 21:11 Montelukast Sodium 10 Mg Tablet PO 10 mg QPM KHAI Administration Ondansetron HCl 4 mg 11/20/19 02:04 11/22/19 07:47 Ondansetron Pf 4 Mg/2 Ml Vial IVP 4 mg Q6H PRN Administration Nausea/Vomiting use 1st Pregabalin 25 mg 11/20/19 09:00 11/22/19 09:41 Pregabalin 25 Mg Cap PO 25 mg BID KHAI Administration Sodium Chloride 10 ml 11/20/19 04:00 11/22/19 07:48 Flush - Normal Saline 10 Ml Syringe IVF 10 ml PRN PRN Administration Saline Flush - Exam General Appearance: ill appearing Heart: RRR, no gallops, no rubs, normal peripheral pulses Respiratory: rales, rhonchi, wheezes Gastrointestinal: soft, non-distended, normal bowel sounds, no guarding, no rigidity Extremities: no cyanosis Neurological: no new deficit Psychiatric: normal affect, A&O x 3 Hosp A/P (1) Sepsis due to pneumonia Code(s): J18.9 - PNEUMONIA, UNSPECIFIED ORGANISM; A41.9 - SEPSIS, UNSPECIFIED ORGANISM Status: Acute (2) Metabolic acidosis Code(s): E87.2 - ACIDOSIS Status: Acute (3) Hyponatremia Code(s): E87.1 - HYPO-OSMOLALITY AND HYPONATREMIA Status: Acute (4) Hyperkalemia Code(s): E87.5 - HYPERKALEMIA Status: Acute (5) Diabetes mellitus type 2 in obese Code(s): E11.69 - TYPE 2 DIABETES MELLITUS WITH OTHER SPECIFIED COMPLICATION; E66.9 - OBESITY, UNSPECIFIED Status: Chronic (6) Pancytopenia Code(s): D61.818 - OTHER PANCYTOPENIA (7) Other issues per H&P - Plan DVT proph w/SCDs 11/21 Discontinue IV fluids. Continue IV Levaquin with nebulizer treatment and Dulera. Blood sugars were uncontrolled due to IV dexamethasone that was admin istered on admission. Infectious disease input appreciated. Patient has pancytopenia of unclear etiology. She also has significant lymphadenopathy on the CT. Dr. Giang recommended to follow-up with a clinical trialphone numbers on the discharge plan. Recheck labs in a.m. Reticulocyte count was 4.2. No heparin or Lovenox due to thrombocytopenia. 11/20 Patient received IV dexamethasone yesterday for suspected COVID 19 pneumonia. For this reason blood sugars have been significantly uncontrolled. Will continue IV fluids. Will give a additional dose of 20 units of Lantus now. Will continue Accu-Cheks q. 4 hourly with moderate sliding scale. Continue levofloxacin. Infectious disease input appreciated. Mira-Bernstein virus PCR pending. Continue Mucinex. DVT prophylaxis with SCDs due to thrombocytopenia. Continue nebulizer treatment every 4 hourly. A.m. labs.. Pneumonia is susp ected to be due to gram-negative organism.
[2019-11-22] MEDS ORDERED: Budesonide 0.5 MG/2 ML NEB NEB SCH (18:30)
[2019-11-22] MEDS: Montelukast Sodium 10 mg Tablet PO SCH (19:49)
[2019-11-22] MEDS: Melatonin 3 MG TAB PO PRN (22:12)
[2019-11-23] MEDS: Ondansetron PF 4 MG/2 ML Vial IVP PRN ×3 (00:24→22:28)
[2019-11-23] MEDS ORDERED: Cepastat Lozenges 1 LOZ PO PRN (00:54)
[2019-11-23] MEDS: HYDROcodone/Acetaminophen 5/325 mg Tablet PO PRN ×3 (03:52→20:31)
[2019-11-23 06:06] LABS: #Lymphocytes 0.7 thou/uL (1.20-3.40); #Monocytes 0.1 thou/uL (0.11-0.59); %Basophils 0.3 % (0.0-1.0); %Eosinophils 2.2 % (0.0-10.0); %Monocytes 6.7 % (0.0-10.0); %Neutrophils 54.9 % (42.0-75.0); Hemoglobin 7.8 g/dL (12.0-16.0); Mean Corpuscular HGB CONC 32.4 g/dL (32.0-36.0); Mean Corpuscular Hemoglobin 28.4 pg (27.0-31.0); Mean Corpuscular Volume 87.6 fL (78.0-98.0); Mean Platelet Volume 9.7 fL (7.4-10.4); Platelet Count 62 thou/uL (130-400); RBC Distribution Width 15.3 % (11.5-14.5); Red Blood Cell (RBC) Count 2.75 mill/uL (4.20-5.40); White Blood Cell (WBC) Count 1.8 thou/uL (4.8-10.8)
[2019-11-23 06:19] LABS: Anion Gap 13 mmol/L (10-20); BUN (Urea Nitrogen) 33 mg/dL (7.0-18.7); Calc. Creatinine Clearance 81 mL/min (70-130); Calcium 8.4 mg/dL (7.8-10.44); Carbon Dioxide 19 mmol/L (22-29); Chloride 111 mmol/L (98-107); Estimated GFR-MDRD 40; Glucose 146 mg/dL (70-105); Potassium 5.2 mmol/L (3.5-5.1); Sodium 138 mmol/L (136-145)
[2019-11-23] MEDS: Mometasone 200 MCG/Formoterol 5 MCG 120 PUFF INHALER INH SCH ×2 (07:50→19:13)
[2019-11-23] MEDS: guaiFENesin ER 600 MG TAB PO SCH ×2 (08:07→20:27)
[2019-11-23] MEDS: Famotidine 20 MG TAB PO SCH ×2 (08:07→20:27)
[2019-11-23] MEDS: Folic Acid 1 MG TAB PO SCH (08:07)
[2019-11-23] MEDS: Insulin Glargine 15 UNITS in Pre-Filled Syringe 1 EACH SC SCH (08:11)
--- NOTE | 2019-11-23 08:32 | PDOC.HOSPP ---
- Subjective Encounter Date: 11/23/19 Encounter Time: 08:32 Subjective: sbjective sob - Objective Vital Signs & Weight: Vital Signs (12 hours) Temp Pulse Resp BP Pulse Ox 11/23/19 07:50 87 16 100 11/23/19 07:30 97.7 F 87 16 107/59 L 100 11/23/19 03:30 95 11/23/19 00:09 95 Weight Weight 211 lb I&O: 11/22/19 11/23/19 11/24/19 06:59 06:59 06:59 Intake Total 1000 Balance 1000 Result Diagrams: 11/23/19 05:30 11/23/19 05:30 Additional Labs: Accuchecks 11/23/19 11/23/19 11/22/19 08:22 00:38 15:37 POC Glucose 132 H 190 H 147 H 11/22/19 11:20 POC Glucose 266 H Hospitalist ROS - Medication Medications: Active Medications Generic Name Dose Route Start Last Admin Trade Name Freq PRN Reason Stop Dose Admin Acetaminophen 650 mg 11/20/19 02:04 11/22/19 06:37 Acetaminophen 325 Mg Tab PO 650 mg Q4H PRN Administration Headache/Fever/Mild Pain (1-3) Acetaminophen/Butalbital/Caffeine 1 tab 11/20/19 02:06 11/22/19 15:49 Fioricet 325/50/40 Mg Tablet PO 11/25/19 02:07 1 tab Q4HR PRN Administration headache Hydrocodone Bitart/Acetaminophen 1 tab 11/20/19 02:04 11/23/19 03:52 Hydrocodone/Acetaminophen 5/325 Mg Tablet PO 1 tab Q4H PRN Administration Moderate Pain (4-6) Albuterol/Ipratropium 3 ml 11/20/19 10:30 11/23/19 07:50 Ipratropium/Albuterol Sulfate 3 Ml Neb NEB 3 ml [id number] KHAI Administration Famotidine 20 mg 11/20/19 09:00 11/23/19 08:07 Famotidine 20 Mg Tab PO 20 mg BID KHAI Administration Folic Acid 1 mg 11/20/19 09:00 11/23/19 08:07 Folic Acid 1 Mg Tab PO 1 mg DAILY KHAI Administration Guaifenesin 600 mg 11/20/19 09:00 11/23/19 08:07 Guaifenesin Er 600 Mg Tab PO 600 mg Q12HR KHAI Administration Guaifenesin/Dextromethorphan 15 ml 11/20/19 02:04 11/21/19 14:33 Guaifenesin Dm 100-10/5 Ml Udcup PO 15 ml Q4H PRN Administration Cough Insulin Glargine 15 units/ 0.15 mls @ 0 mls/hr 11/22/19 09:00 11/23/19 08:11 Miscellaneous Medication SC 0.15 mls QAM KHAI Administration Levofloxacin 750 mg/ Device 150 mls @ 100 mls/hr 11/21/19 21:00 11/22/19 19:50 IVPB 150 mls 2100 KHAI Administration Insulin Human Lispro 0 units 11/20/19 12:50 11/22/19 11:57 Humalog 300 Units/3 Ml Vial SC 9 unit .AGGRESSIVE SLIDING PRN Administration Aggressive Correctional Scale Insulin Human Lispro 0 units 11/20/19 22:45 11/22/19 21:21 Humalog 300 Units/3 Ml Vial SC 4 unit .BEDTIME SLIDING SC PRN Administration BEDTIME SLIDING SCALE Protocol Melatonin 3 mg 11/21/19 00:05 11/22/19 22:12 Melatonin 3 Mg Tab PO 3 mg HS PRN Administration Insomnia Mometasone Furoate/Formoterol Fumar 2 puff 11/20/19 06:30 11/23/19 07:50 Mometasone 200 Mcg/Formoterol 5 Mcg 120 Puff Inhaler INH 2 puff BID-RT KHAI Administration Montelukast Sodium 10 mg 11/20/19 21:00 11/22/19 19:49 Montelukast Sodium 10 Mg Tablet PO 10 mg QPM KHAI Administration Ondansetron HCl 4 mg 11/20/19 02:04 11/23/19 06:58 Ondansetron Pf 4 Mg/2 Ml Vial IVP 4 mg Q6H PRN Administration Nausea/Vomiting use 1st Pregabalin 25 mg 11/20/19 09:00 11/22/19 21:18 Pregabalin 25 Mg Cap PO 25 mg BID KHAI Administration Sodium Chloride 10 ml 11/20/19 04:00 11/22/19 07:48 Flush - Normal Saline 10 Ml Syringe IVF 10 ml PRN PRN Administration Saline Flush Tramadol HCl 50 mg 11/22/19 14:49 11/22/19 19:49 Tramadol Hcl 50 Mg Tab PO 11/23/19 14:50 50 mg Q6H PRN Administration Moderate Pain (4-6) - Exam General Appearance: awake alert Neck: no JVD Heart: RRR, no murmur Respiratory - other findings: coarse BS on exhalation, all marcelino Gastrointestinal: soft, non-distended, normal bowel sounds Extremities: no edema Hosp A/P (1) Diabetes type 2, uncontrolled Code(s): E11.65 - TYPE 2 DIABETES MELLITUS WITH HYPERGLYCEMIA Status: Acute Qualifiers: Glycemic state: with hyperglycemia Qualified Code(s): E11.65 - Type 2 diabetes mellitus with hyperglycemia (2) Hyponatremia Code(s): E87.1 - HYPO-OSMOLALITY AND HYPONATREMIA Status: Acute (3) Pancytopenia Code(s): D61.818 - OTHER PANCYTOPENIA Status: Acute (4) CKD (chronic kidney disease) stage 3, GFR 30-59 ml/min Code(s): N18.3 - CHRONIC KIDNEY DISEASE, STAGE 3 (MODERATE) Status: Chronic (5) Lymphadenopathy Code(s): R59.1 - GENERALIZED ENLARGED LYMPH NODES Status: Acute (6) Pneumonia Code(s): J18.9 - PNEUMONIA, UNSPECIFIED ORGANISM Status: Acute Qualifiers: Pneumonia type: due to unspecified organism Laterality: left Lung location: lower lobe of lung Qualified Code(s): J18.9 - Pneumonia, unspecified organism - Plan very difficult multiple admissions, multiple remarkable medical problems without underlying DX difuse lymphadenopathy, pancytopenia, etc also has poorly controlled DM with CKD will discuss with ID
[2019-11-23] MEDS: Pregabalin 25 MG CAP PO SCH ×2 (10:40→20:29)
[2019-11-23] MEDS: Montelukast Sodium 10 mg Tablet PO SCH (20:28)
[2019-11-23] MEDS: HumaLOG 300 UNITS/3 ML VIAL SC PRN (20:32)
[2019-11-24] MEDS: Mometasone 200 MCG/Formoterol 5 MCG 120 PUFF INHALER INH SCH ×2 (07:51→18:47)
[2019-11-24] MEDS: Famotidine 20 MG TAB PO SCH ×2 (07:58→20:14)
[2019-11-24] MEDS: Folic Acid 1 MG TAB PO SCH (07:58)
[2019-11-24] MEDS: Insulin Glargine 15 UNITS in Pre-Filled Syringe 1 EACH SC SCH (07:58)
[2019-11-24] MEDS: guaiFENesin ER 600 MG TAB PO SCH ×2 (07:59→20:15)
--- NOTE | 2019-11-24 08:02 | PDOC.HOSPP ---
- Subjective Encounter Date: 11/24/19 Encounter Time: 07:57 Subjective: still sob, dry cough - Objective Vital Signs & Weight: Vital Signs (12 hours) Temp Pulse Resp BP BP Pulse Ox 11/24/19 07:50 102 H 16 97 11/24/19 07:45 97.8 F 102 H 20 109/78 97 11/24/19 02:42 95 18 102/57 L 95 11/24/19 02:10 16 11/23/19 22:16 106 H 16 96 11/23/19 20:11 97.6 F 103 H 18 125/71 96 11/23/19 20:00 96 Weight Weight 211 lb I&O: 11/23/19 11/24/19 11/25/19 06:59 06:59 06:59 Intake Total 2230 Balance 2230 Result Diagrams: 11/23/19 05:30 11/23/19 05:30 Additional Labs: Accuchecks 11/24/19 11/24/19 11/23/19 05:22 00:43 20:14 POC Glucose 171 H 166 H 282 H 11/23/19 11/23/19 11/23/19 15:41 11:39 08:22 POC Glucose 201 H 168 H 132 H 11/23/19 11/22/19 11/22/19 04:01 20:26 07:57 POC Glucose 135 H 342 H 153 H 11/22/19 11/21/19 11/20/19 00:38 00:04 21:40 POC Glucose 243 H 431 H 467 H Hospitalist ROS - Medication Medications: Active Medications Generic Name Dose Route Start Last Admin Trade Name Hoseaq PRN Reason Stop Dose Admin Acetaminophen 650 mg 11/20/19 02:04 11/22/19 06:37 Acetaminophen 325 Mg Tab PO 650 mg Q4H PRN Administration Headache/Fever/Mild Pain (1-3) Acetaminophen/Butalbital/Caffeine 1 tab 11/20/19 02:06 11/22/19 15:49 Fioricet 325/50/40 Mg Tablet PO 11/25/19 02:07 1 tab Q4HR PRN Administration headache Hydrocodone Bitart/Acetaminophen 1 tab 11/20/19 02:04 11/23/19 20:31 Hydrocodone/Acetaminophen 5/325 Mg Tablet PO 1 tab Q4H PRN Administration Moderate Pain (4-6) Albuterol/Ipratropium 3 ml 11/20/19 10:30 11/24/19 07:50 Ipratropium/Albuterol Sulfate 3 Ml Neb NEB 3 ml [id number] KHAI Administration Famotidine 20 mg 11/20/19 09:00 11/23/19 20:27 Famotidine 20 Mg Tab PO 20 mg BID KHAI Administration Folic Acid 1 mg 11/20/19 09:00 11/23/19 08:07 Folic Acid 1 Mg Tab PO 1 mg DAILY KHAI Administration Guaifenesin 600 mg 11/20/19 09:00 11/23/19 20:27 Guaifenesin Er 600 Mg Tab PO 600 mg Q12HR KHAI Administration Guaifenesin/Dextromethorphan 15 ml 11/20/19 02:04 11/21/19 14:33 Guaifenesin Dm 100-10/5 Ml Udcup PO 15 ml Q4H PRN Administration Cough Insulin Glargine 15 units/ 0.15 mls @ 0 mls/hr 11/22/19 09:00 11/23/19 08:11 Miscellaneous Medication SC 0.15 mls QAM KHAI Administration Levofloxacin 750 mg/ Device 150 mls @ 100 mls/hr 11/21/19 21:00 11/23/19 20:27 IVPB 150 mls 2100 KHAI Administration Insulin Human Lispro 0 units 11/20/19 12:50 11/22/19 11:57 Humalog 300 Units/3 Ml Vial SC 9 unit .AGGRESSIVE SLIDING PRN Administration Aggressive Correctional Scale Insulin Human Lispro 0 units 11/20/19 22:45 11/23/19 20:32 Humalog 300 Units/3 Ml Vial SC 3 unit .BEDTIME SLIDING SC PRN Administration BEDTIME SLIDING SCALE Protocol Melatonin 3 mg 11/21/19 00:05 11/22/19 22:12 Melatonin 3 Mg Tab PO 3 mg HS PRN Administration Insomnia Mometasone Furoate/Formoterol Fumar 2 puff 11/20/19 06:30 11/24/19 07:51 Mometasone 200 Mcg/Formoterol 5 Mcg 120 Puff Inhaler INH 2 puff BID-RT KHAI Administration Montelukast Sodium 10 mg 11/20/19 21:00 11/23/19 20:28 Montelukast Sodium 10 Mg Tablet PO 10 mg QPM KHAI Administration Ondansetron HCl 4 mg 11/20/19 02:04 11/23/19 22:28 Ondansetron Pf 4 Mg/2 Ml Vial IVP 4 mg Q6H PRN Administration Nausea/Vomiting use 1st Pregabalin 25 mg 11/20/19 09:00 11/23/19 20:29 Pregabalin 25 Mg Cap PO 25 mg BID KHAI Administration Sodium Chloride 10 ml 11/20/19 04:00 11/22/19 07:48 Flush - Normal Saline 10 Ml Syringe IVF 10 ml PRN PRN Administration Saline Flush - Exam General Appearance: awake alert Neck: no JVD Heart: RRR, no murmur Respiratory - other findings: wheezes all marcelino Gastrointestinal: soft, normal bowel sounds Extremities: no edema Hosp A/P (1) Diabetes type 2, uncontrolled Code(s): E11.65 - TYPE 2 DIABETES MELLITUS WITH HYPERGLYCEMIA Status: Acute Qualifiers: Glycemic state: with hyperglycemia Qualified Code(s): E11.65 - Type 2 diabetes mellitus with hyperglycemia (2) Hyponatremia Code(s): E87.1 - HYPO-OSMOLALITY AND HYPONATREMIA Status: Acute (3) Pancytopenia Code(s): D61.818 - OTHER PANCYTOPENIA Status: Acute (4) CKD (chronic kidney disease) stage 3, GFR 30-59 ml/min Code(s): N18.3 - CHRONIC KIDNEY DISEASE, STAGE 3 (MODERATE) Status: Chronic (5) Lymphadenopathy Code(s): R59.1 - GENERALIZED ENLARGED LYMPH NODES Status: Acute (6) Pneumonia Code(s): J18.9 - PNEUMONIA, UNSPECIFIED ORGANISM Status: Acute Qualifiers: Pneumonia type: due to unspecified organism Laterality: left Lung location: lower lobe of lung Qualified Code(s): J18.9 - Pneumonia, unspecified organism (7) Asthma Code(s): J45.909 - UNSPECIFIED ASTHMA, UNCOMPLICATED Status: Acute Qualifiers: Asthma complication type: unspecified - Plan very difficult multiple admissions, multiple remarkable medical problems without underlying DX diffuse lymphadenopathy, pancytopenia, etc also has poorly controlled DM with CKD asthma adverse despite multiple inhaled bronchodilatores start iv glucocorticoids consult pulmonology
[2019-11-24] MEDS ORDERED: methylPREDNISolone Sod Succ/PF 125 MG/2 ML VIAL IVP SCH (08:15)
--- NOTE | 2019-11-24 08:40 | PRG ---
DATE OF SERVICE: 11/23/2019 SUBJECTIVE: Ms. Preciado is still having intermittent cough and some wheezing. The cough is without any sputum production. No abdominal pain or diarrhea. OBJECTIVE: VITAL SIGNS: T-max 98.6, blood pressure 107/59, heart rate 87, respiratory rate 16, O2 saturation 100 on room air. LUNGS: Still has some expiratory wheezing on lung exam. HEART: S1 and S2. ABDOMEN: Soft, not distended or tender. LABORATORY DATA: Sodium 138, creatinine 1.53. White cell count 1.8, hemoglobin 7.8, MCV 87, and platelets 62,000. Repeat CT demonstrated nodular parenchymal opacity in left lung base, increased interstitial opacities bilaterally, neoplastic process in left upper lobe could not be excluded. Followup to complete resolution recommended. There were marked splenomegaly and extensive lymphadenopathy in chest, abdomen, and pelvis. The possibility of lymphoma was considered with residual inflammatory changes in the right sternoclavicular joint. ASSESSMENT AND DISCUSSION: Type 2 diabetes, chronic lymphadenopathy in various regions with progression, hypersplenism with marked splenomegaly, trilinear and normal hematopoiesis on bone marrow exam. Now these findings on chest x-ray discussed as well as CT of chest. Again, the differential diagnosis includes lymphoma versus other forms of lymphoproliferative disorder including autoimmune lymphoproliferative disorder. I have ordered Mira-Bernstein virus DNA PCR because the EBV-associated lymphoproliferative disorder is another consideration. It seems like she has significant immunodeficiency. It is not based on immunoglobulin deficiency and we mentioned the possibility of autoimmune lymphoproliferative disorder. There is a [facility] who has a clinical trial, and they are enrolling patients, and I have left the information with Dr. Morris for contact. Job ID: [id number]
[2019-11-24] MEDS: Pregabalin 25 MG CAP PO SCH ×2 (09:23→20:15)
[2019-11-24] MEDS ORDERED: Magnesium 2 GM/50 ML 2 GM in Premix Bag 1 BAG IVPB SCH (11:30)
[2019-11-24] MEDS: HumaLOG 300 UNITS/3 ML VIAL SC PRN ×3 (11:36→20:20)
--- NOTE | 2019-11-24 17:01 | CON ---
DATE OF CONSULTATION: HISTORY OF PRESENT ILLNESS: Luly Preciado is a 29-year-old morbidly obese female, who is mentally challenged, she weighs 90 kg, came to the ER on 11/19/2019 with shortness of breath, cough, fever, and chills. About a month ago, she was discharged with a diagnosis of pneumonia. She had peritoneal fluid that was tapped, which showed Streptococcus pyogenes. She was seen by Infectious Disease, on several different antibiotics. In spite of getting neb treatments, she is still wheezing, reason for consult. The patient is unable to give much history. In fact, she is unable to tell us whether she has seen Dr. Clemons in the past with whom she has had extensive workup for adenopathy in the mediastinum, which has included a biopsy of the lymph node which was negative. PAST MEDICAL HISTORY: Pertinent for extensive adenopathy, mediastinal, abdominal; chronic splenomegaly; chronic anemia; chronic asthma; mental retardation. SOCIAL HISTORY: No history of any alcohol, tobacco abuse. ALLERGIES: MULTIPLE MEDICATIONS; KEFLEX, AMOXICILLIN, LISINOPRIL, LOSARTAN, SULFA. HOME MEDICATIONS: Include: 1. Ventolin HFA. 2. Lyrica 25. 3. Guaifenesin. 4. Dulera. 5. Singulair. 6. Robaxin. 7. Lantus. 8. Flonase. 9. Pepcid. 10. Fioricet. REVIEW OF SYSTEMS: Difficult to get any significant input from the patient. PHYSICAL EXAMINATION: GENERAL/VITAL SIGNS: She is sitting on the side of the bed, appears to be in no distress with an O2 saturation of 96% on room air, pulse 80, respiratory rate 18, blood pressure 130/80. CHEST: Bilateral wheezing. CARDIAC: Normal S1, S2. No gallops. ABDOMEN: No masses. LABORATORY AND DIAGNOSTIC DATA: Peritoneal fluid, Streptococcus pyogenes. Additional lab as noted. White count 1.8, H and H 7 and 24, platelet count 62. Coronavirus test negative. TOMMIE was negative. Bronch washings were negative. Glucose is elevated. Creatinine 1.52, BUN 33. ASSESSMENT AND PLAN: Bronchial asthma, significant wheezing, azotemia, pancytopenia, extensive adenopathy, mental retardation. She is actually on adequate medication, at this time, though I have added magnesium IV, Pulmicort, and p.o. prednisone, which can be rapidly tapered once the wheezing improved. She is clearly in no distress. Hopefully, if she is stabilized in the next several days, she can be discharged with ongoing aggressive care at home. She can follow up with Dr. Clemons in the office if she wishes to do so. Consultation note, 70 minutes, 50% direct patient care. Job ID: [id number]
[2019-11-24] MEDS: HYDROcodone/Acetaminophen 5/325 mg Tablet PO PRN (18:29)
[2019-11-24] MEDS: Budesonide 0.5 MG/2 ML NEB NEB SCH (18:46)
[2019-11-24] MEDS: Montelukast Sodium 10 mg Tablet PO SCH (20:14)
[2019-11-24] MEDS: predniSONE 20 MG TAB PO SCH (20:14)
[2019-11-24] MEDS: Melatonin 3 MG TAB PO PRN (20:15)
[2019-11-25] MEDS: Ondansetron PF 4 MG/2 ML Vial IVP PRN ×2 (02:35→23:19)
[2019-11-25] MEDS: Budesonide 0.5 MG/2 ML NEB NEB SCH ×2 (05:13→18:21)
[2019-11-25] MEDS: Mometasone 200 MCG/Formoterol 5 MCG 120 PUFF INHALER INH SCH ×2 (05:14→18:21)
[2019-11-25] MEDS: predniSONE 20 MG TAB PO SCH ×2 (08:04→21:33)
[2019-11-25] MEDS: HYDROcodone/Acetaminophen 5/325 mg Tablet PO PRN ×3 (08:04→23:19)
[2019-11-25] MEDS: Famotidine 20 MG TAB PO SCH ×2 (08:04→21:33)
[2019-11-25] MEDS: Folic Acid 1 MG TAB PO SCH (08:04)
[2019-11-25] MEDS: guaiFENesin ER 600 MG TAB PO SCH ×2 (08:04→21:33)
[2019-11-25] MEDS: Insulin Glargine 15 UNITS in Pre-Filled Syringe 1 EACH SC SCH (08:06)
--- NOTE | 2019-11-25 08:32 | PDOC.HOSPP ---
- Subjective Encounter Date: 11/25/19 Encounter Time: 08:30 Subjective: o distress - Objective Vital Signs & Weight: Vital Signs (12 hours) Temp Pulse Resp BP Pulse Ox 11/25/19 07:35 97.8 F 113 H 18 128/68 98 11/25/19 05:14 90 16 95 11/25/19 05:13 90 16 95 11/25/19 02:03 88 16 95 11/24/19 22:07 90 20 95 11/24/19 20:51 95 Weight Weight 211 lb I&O: 11/24/19 11/25/19 11/26/19 06:59 06:59 06:59 Intake Total 2230 1160 Balance 2230 1160 Result Diagrams: 11/23/19 05:30 11/23/19 05:30 Additional Labs: Accuchecks 11/25/19 11/24/19 11/24/19 02:22 16:05 11:39 POC Glucose 342 H 365 H 269 H Hospitalist ROS - Medication Medications: Active Medications Generic Name Dose Route Start Last Admin Trade Name Freq PRN Reason Stop Dose Admin Acetaminophen 650 mg 11/20/19 02:04 11/22/19 06:37 Acetaminophen 325 Mg Tab PO 650 mg Q4H PRN Administration Headache/Fever/Mild Pain (1-3) Hydrocodone Bitart/Acetaminophen 1 tab 11/20/19 02:04 11/25/19 08:04 Hydrocodone/Acetaminophen 5/325 Mg Tablet PO 1 tab Q4H PRN Administration Moderate Pain (4-6) Albuterol/Ipratropium 3 ml 11/20/19 10:30 11/25/19 05:14 Ipratropium/Albuterol Sulfate 3 Ml Neb NEB 3 ml [id number] KHAI Administration Budesonide 0.5 mg 11/24/19 18:30 11/25/19 05:13 Budesonide 0.5 Mg/2 Ml Neb NEB 0.5 mg BID-RT KHAI Administration Famotidine 20 mg 11/20/19 09:00 11/25/19 08:04 Famotidine 20 Mg Tab PO 20 mg BID KHAI Administration Folic Acid 1 mg 11/20/19 09:00 11/25/19 08:04 Folic Acid 1 Mg Tab PO 1 mg DAILY KHAI Administration Guaifenesin 600 mg 11/20/19 09:00 11/25/19 08:04 Guaifenesin Er 600 Mg Tab PO 600 mg Q12HR KHAI Administration Guaifenesin/Dextromethorphan 15 ml 11/20/19 02:04 11/21/19 14:33 Guaifenesin Dm 100-10/5 Ml Udcup PO 15 ml Q4H PRN Administration Cough Insulin Glargine 15 units/ 0.15 mls @ 0 mls/hr 11/22/19 09:00 11/25/19 08:06 Miscellaneous Medication SC 0.15 mls QAM KHAI Administration Levofloxacin 750 mg/ Device 150 mls @ 100 mls/hr 11/21/19 21:00 11/24/19 20:16 IVPB 150 mls 2100 KHAI Administration Insulin Human Lispro 0 units 11/20/19 12:50 11/24/19 16:05 Humalog 300 Units/3 Ml Vial SC 13 unit .AGGRESSIVE SLIDING PRN Administration Aggressive [employer] Scale Insulin Human Lispro 0 units 11/20/19 22:45 11/24/19 20:20 Humalog 300 Units/3 Ml Vial SC 5 unit .BEDTIME SLIDING SC PRN Administration BEDTIME SLIDING SCALE Protocol Melatonin 3 mg 11/21/19 00:05 11/24/19 20:15 Melatonin 3 Mg Tab PO 3 mg HS PRN Administration Insomnia Mometasone Furoate/Formoterol Fumar 2 puff 11/20/19 06:30 11/25/19 05:14 Mometasone 200 Mcg/Formoterol 5 Mcg 120 Puff Inhaler INH 2 puff BID-RT KHAI Administration Montelukast Sodium 10 mg 11/20/19 21:00 11/24/19 20:14 Montelukast Sodium 10 Mg Tablet PO 10 mg QPM KHAI Administration Ondansetron HCl 4 mg 11/20/19 02:04 11/25/19 02:35 Ondansetron Pf 4 Mg/2 Ml Vial IVP 4 mg Q6H PRN Administration Nausea/Vomiting use 1st Prednisone 20 mg 11/24/19 21:00 11/25/19 08:04 Prednisone 20 Mg Tab PO 20 mg BID KHAI Administration Pregabalin 25 mg 11/20/19 09:00 11/24/19 20:15 Pregabalin 25 Mg Cap PO 25 mg BID KHAI Administration Sodium Chloride 10 ml 11/20/19 04:00 11/25/19 08:06 Flush - Normal Saline 10 Ml Syringe IVF 10 ml PRN PRN Administration Saline Flush Throat Lozenges 1 leo 11/23/19 00:54 11/24/19 22:29 Cepastat Lozenges 1 Leo PO 1 leo Q2H PRN Administration Sore Throat - Exam General Appearance: awake alert Neck: no JVD Heart: RRR, no murmur Respiratory: CTAB Gastrointestinal: soft, normal bowel sounds Extremities: no edema Hosp A/P (1) Diabetes type 2, uncontrolled Code(s): E11.65 - TYPE 2 DIABETES MELLITUS WITH HYPERGLYCEMIA Status: Acute Qualifiers: Glycemic state: with hyperglycemia Qualified Code(s): E11.65 - Type 2 diabetes mellitus with hyperglycemia (2) Hyponatremia Code(s): E87.1 - HYPO-OSMOLALITY AND HYPONATREMIA Status: Acute (3) Pancytopenia Code(s): D61.818 - OTHER PANCYTOPENIA Status: Acute (4) CKD (chronic kidney disease) stage 3, GFR 30-59 ml/min Code(s): N18.3 - CHRONIC KIDNEY DISEASE, STAGE 3 (MODERATE) Status: Chronic (5) Lymphadenopathy Code(s): R59.1 - GENERALIZED ENLARGED LYMPH NODES Status: Acute (6) Pneumonia Code(s): J18.9 - PNEUMONIA, UNSPECIFIED ORGANISM Status: Acute Qualifiers: Pneumonia type: due to unspecified organism Laterality: left Lung location: lower lobe of lung Qualified Code(s): J18.9 - Pneumonia, unspecified organism (7) Asthma Code(s): J45.909 - UNSPECIFIED ASTHMA, UNCOMPLICATED Status: Acute Qualifiers: Asthma complication type: unspecified - Plan very difficult multiple admissions, multiple remarkable medical problems without underlying DX diffuse lymphadenopathy, pancytopenia, etc also has poorly controlled DM with CKD marked pulmonary clearing with steroids, OLIVIA in am
[2019-11-25] MEDS: Pregabalin 25 MG CAP PO SCH ×2 (09:17→21:34)
--- NOTE | 2019-11-25 09:31 | PRG ---
DATE OF SERVICE: 11/25/2019 SUBJECTIVE: This morning, she is awake, alert, and responsive. OBJECTIVE: VITAL SIGNS: Temperature 97, pulse 113, respirations room air, blood pressure 120/68. CHEST: Wheezing is much improved. CARDIAC: Normal S1, S2. No gallops. ABDOMEN: No masses. ASSESSMENT: 1. Asthma, improved. 2. Baseline mental retardation. PLAN: She looks much better. Discussed with primary care physician. She can be discharged home in the next day or two. Job ID: [id number]
[2019-11-25] MEDS: HumaLOG 300 UNITS/3 ML VIAL SC PRN ×3 (12:15→21:37)
--- NOTE | 2019-11-25 16:45 | PRG ---
DATE OF SERVICE: 11/25/2019 SUBJECTIVE: She is walking around, feeling better. She is not wheezing as much. No abdominal pain or chest pain. No diarrhea. OBJECTIVE: VITAL SIGNS: She has been afebrile. Blood pressure 120/60, heart rate 89, and O2 sats 95. GENERAL: Appears in no distress. LUNGS: The wheezing is less. She does have stridor in the central chest anteriorly. ABDOMEN: No abdominal tenderness. Splenomegaly noted. HEART: S1 and S2, regular rate. EXTREMITIES: No edema. LABORATORY DATA: White cell count 1.8, hemoglobin 7.8, and platelets 62 with normal differential. Creatinine 1.53, potassium 5.2, chloride 111, carbon dioxide 19. Liver profile within normal limits. Albumin 3.6. EBV DNA PCR was negative. ASSESSMENT AND DISCUSSION: Type 2 diabetes, chronic lymphadenopathy in various regions with progression, hypersplenism, marked splenomegaly and the normal trilinear hematopoiesis on bone marrow with recurrent infections. I have spoken with the [facility] Researcher (Destini Ladd) that is doing studies on genetic forms of immunodeficiency, and he stated that he would like to know the age of the patient and disease onset and if there is any family history. He stated that few of the newly discovered disorders can be a possibility in a patient with type 2 diabetes and nonmalignant splenomegaly, and also he recommended the availability of the genetics/immunology service at [facility]. I think one of the missing items in her workup is the pathology. Other than the normal bone burton specimen, we have a lung biopsy, which was a transbronchial biopsy and naturally not adequate for diagnosis of the lymphadenopathy. She had a gastric biopsy in October, which was not remarkable and also not adequate to evaluate the lymph nodes. She had bronchial washings and this includes lymph node fine-needle aspiration with no malignant cells identified, and peritoneal needle biopsy, which showed numerous neutrophils, but no other findings, so none of those specimens are adequate to completely rule out a lymphoproliferative disorder, so I would probably consider other approach to obtain lymph node for histopathology. Job ID: [id number] [facility]
[2019-11-25] MEDS: Melatonin 3 MG TAB PO PRN (21:33)
[2019-11-25] MEDS: Montelukast Sodium 10 mg Tablet PO SCH (21:33)
[2019-11-26] MEDS: HumaLOG 300 UNITS/3 ML VIAL SC PRN ×3 (05:48→11:16)
[2019-11-26] MEDS: Budesonide 0.5 MG/2 ML NEB NEB SCH (07:22)
[2019-11-26] MEDS: Mometasone 200 MCG/Formoterol 5 MCG 120 PUFF INHALER INH SCH (07:23)
[2019-11-26] MEDS: Folic Acid 1 MG TAB PO SCH (08:18)
[2019-11-26] MEDS: guaiFENesin ER 600 MG TAB PO SCH (08:18)
[2019-11-26] MEDS: predniSONE 20 MG TAB PO SCH (08:18)
[2019-11-26] MEDS: Famotidine 20 MG TAB PO SCH (08:18)
--- NOTE | 2019-11-26 08:50 | DIS ---
DATE OF ADMISSION: 11/20/2019 DATE OF DISCHARGE: 11/26/2019 DISPOSITION: Discharged home. PRIMARY CARE PROVIDER: Rosa Vazquez DO FINAL DIAGNOSES: Asthma exacerbation, type 2 diabetes without complications other than high blood sugar, hyponatremia, pancytopenia, chronic anemia, lymphadenopathy, and cognitive impairment. DISCHARGE MEDICATIONS: 1. Prednisone 20 mg twice a day for 7 days, then 20 mg once a day for 7 days, then half a tablet once a day for 7 days. 2. Pepcid 20 mg a day. 3. Flonase p.r.n. 4. Folic acid 1 mg a day. 5. Her normal dose of insulin Lantus is 10 units subcu twice a day. However, for the next 10 days, she has been told to take 15 units twice a day. 6. Dulera 2 puffs twice a day. 7. Singulair 10 mg a day. 8. Lyrica 25 mg twice a day. 9. Ventolin inhaler 2 puffs q.4 hours p.r.n. 10. Mucinex 600 mg p.o. q.12 p.r.n. ALLERGIES: CEPHALEXIN, LISINOPRIL, LOSARTAN, SULFAMETHOXAZOLE, AND TRIMETHOPRIM. CODE STATUS: Full. PENDING AT THE TIME OF DISCHARGE: Nothing. DIET: Diabetic. HOSPITAL COURSE: The patient admitted to [facility] to the hospitalist service with shortness of breath. She was admitted as a COVID suspect with bilateral pneumonia. Initial laboratory; sodium 134, potassium 4.4, BUN 20, creatinine 1.72, and blood sugar 259, which unfortunately is not unusual for her. Her white count was 3.3, hemoglobin 8.3, platelet count 46,000, which unfortunately is not atypical for her. Serology for COVID was negative. She had a CT of the chest. Increased nodular densities in the thoracic area. She had a focal area of pneumonia in the left upper lobe. She was seen in consultation by Dr. Roe Giang on 11/20/2019. She has a chronic problem with pancytopenia, chronic lymphadenopathy, type 2 diabetes. During her hospital stay, she remained afebrile. She did not require oxygen supplementation. She had no cough. She did have marked wheezing in her chest. She has a history of asthma. On 11/23, Dr. Villafana was consulted, who suggested adding steroids to the nebulizers and Dulera. She improved rapidly on that. Chest has been clear for 2 days. Unfortunately, the steroids did elevate her blood sugar; however, she is not at all cooperative with diet, much less timing of Accu-Cheks before or after food. She has been for several days asymptomatic, wondering about the floor of the hospital. She is being discharged for followup in 3 to 7 days [address] her PCP. Dr. Giang is working to try to get patient into lympho-proliferative study. Her Mira-Bernstein virus DNA was negative. As I said before, she has been asked to see her PCP in 3 to 7 days to increase her Lantus to 15 units subcu twice a day for 10 days. I will leave it to the PCP to check her blood sugars and go from there. She is an unfortunate woman with mental retardation, type 2 diabetes, pancytopenia, diffuse lymphadenopathy in her thorax of unknown etiology, who is at risk certainly for frequent re-admissions. Job ID: [id number] [facility]
[2019-11-26] MEDS: Insulin Glargine 15 UNITS in Pre-Filled Syringe 1 EACH SC SCH (09:14)
--- NOTE | 2019-11-26 09:26 | PRG ---
DATE OF SERVICE: 11/26/2019 SUBJECTIVE: This morning, she is awake, alert, and responsive. She is better. OBJECTIVE: VITAL SIGNS: Temperature 97, pulse , respiratory rate 20, saturations on room air, and blood pressure 120/70. CHEST: No wheezing today. CARDIAC: Normal S1 and S2. No gallops. ABDOMEN: No masses. ASSESSMENT: Chronic obstructive pulmonary disease exacerbation, bronchitis. PLAN: She could be discharged home with tapering dose of prednisone over a week, p.o. antibiotic for few more days. Otherwise, continue inhaled steroids. Job ID: [id number]
[2019-11-26] MEDS: Pregabalin 25 MG CAP PO SCH (09:58)
[2019-11-26] MEDS: HYDROcodone/Acetaminophen 5/325 mg Tablet PO PRN (09:59)
[2019-11-26] MEDS: Ondansetron PF 4 MG/2 ML Vial IVP PRN (10:48)
[2019-11-26 11:53] VITALS: BP 134/86; TEMP 97.7
== END 2019-11-26 14:28 | disposition home or self-care (01) | DRG 871 ==
LOC: ERS 22:04 → T4-A 11-20 00:13
PROVIDERS: ADMIT Internal Medicine; ATTEND Internal Medicine
DX: A41.9 Sepsis, unspecified organism (principal); J18.9 Pneumonia, unspecified organism; N17.9 Acute kidney failure, unspecified; D61.818 Other pancytopenia; E87.2 Acidosis; E87.1 Hypo-osmolality and hyponatremia; J45.901 Unspecified asthma with (acute) exacerbation; Z20.828 Contact with and (suspected) exposure to other viral communicable diseases; E11.22 Type 2 diabetes mellitus with diabetic chronic kidney disease; E87.5 Hyperkalemia; N18.3 Chronic kidney disease, stage 3 (moderate); D73.1 Hypersplenism; R59.1 Generalized enlarged lymph nodes; E11.9 Type 2 diabetes mellitus without complications; E66.9 Obesity, unspecified; D69.6 Thrombocytopenia, unspecified; Z88.1 Allergy status to other antibiotic agents; Z88.8 Allergy status to other drugs, medicaments and biological substances; E11.65 Type 2 diabetes mellitus with hyperglycemia; F79 Unspecified intellectual disabilities
CPT/HCPCS: 36415; 36416; 71045; 71250; 74177; 80048; 80053; 81001; 83735; 83880; 84100; 84443; 85025; 85046; 85379; 86140; 86850; 86900; 86901; 87635; 87798; 93005; 94640; 96365; 96375; J1100; J1815; J1956; J2405; J2930; J3475; J7512; J7620; J7626; U0002; U0003

== ENCOUNTER 2020-01-26 21:36 | Emergency (ER) | payer OTHER ==
--- NOTE | 2020-01-26 22:53 | ULT ---
Pelvic ultrasound: 01/26/2020 HISTORY: Pelvic pain for 3 days, unknown TECHNIQUE: Multiplanar grayscale sonographic imaging of the pelvis obtained with transabdominal and e ndovaginal imaging. The ovaries are assessed with Doppler interrogation including color flow and spectral analysis FINDINGS: The uterus measures approximately 7.9 x 3.8 x 6.1 cm. Right ovary measures 4.2 x 3.4 x 3.8 cm and left ovary measures 3.0 x 2.2 x 2.6 cm. Blood flow is noted within both ovaries. No free fluid is seen within the pelvis. No intrauterine gestational sac is appreciated. Right ovarian cysts are noted measuring up to 2.3 cm with mild internal complexity. There is a cyst i n the left ovary measuring up to 1.4 cm. There is a vague hypoechoic area within the left ovary measuring 2 cm, which may represent an additional cyst. IMPRESSION: Findings suggesting cystic lesions within both ovaries. Follow-up imaging in 6 weeks may be beneficial. No intrauterine gestational sac is seen. If the patient is , correlation with quantitative be ta-hCG at this time and in 48 hours is essential as findings could signify early normal or sonographically occult ectopic . In addition, possible follow-up pelvic ultrasound in 48 hours recommended as clinically warranted.
== END 2020-01-26 23:28 | disposition home or self-care (01) ==
LOC: ERS 21:36
DX: O20.0 Threatened abortion (principal); O99.019 Anemia complicating pregnancy, unspecified trimester; O99.519 Diseases of the respiratory system complicating pregnancy, unspecified trimester; J45.909 Unspecified asthma, uncomplicated; O99.280 Endocrine, nutritional and metabolic diseases complicating pregnancy, unspecified trimester; E11.9 Type 2 diabetes mellitus without complications
CPT/HCPCS: 76856

== ENCOUNTER 2020-03-07 15:17 | Emergency (ER) | payer OTHER ==
[2020-03-07 16:12] LABS: #Eosinphils 0.1 thou/uL (0.0-0.7); #Monocytes 0.2 thou/uL (0.11-0.59); #Neutrophils 2.4 thou/uL (1.40-6.50); %Basophils 0.7 % (0.0-1.0); %Eosinophils 2.6 % (0.0-10.0); %Lymphocytes 25.7 % (21.0-51.0); %Monocytes 6.1 % (0.0-10.0); %Neutrophils 64.8 % (42.0-75.0); Hemoglobin 10.4 g/dL (12.0-16.0); Mean Corpuscular HGB CONC 33.3 g/dL (32.0-36.0); Mean Corpuscular Hemoglobin 30.3 pg (27.0-31.0); Mean Corpuscular Volume 91.2 fL (78.0-98.0); Platelet Count 72 thou/uL (130-400); RBC Distribution Width 17.1 % (11.5-14.5); Red Blood Cell (RBC) Count 3.42 mill/uL (4.20-5.40); White Blood Cell (WBC) Count 3.7 thou/uL (4.8-10.8)
[2020-03-07 16:14] LABS: Bilirubin Negative (Negative); Blood, Urine 3+ (Negative); Clarity Clear (Clear); Glucose, Urine (Dipstick) Greater than 1000 mg/dL (Negative); Ketone, Urine Negative (Negative); Leukocyte 25 Leu/uL (Negative); Nitrite Negative (Negative); Protein, Urine (Dipstick) 50 mg/dL (Neg-Trace); RBC/HPF Greater than 50 HPF (0-3); Specific Gravity, Urine 1.017 (1.002-1.036); Squamous Epithelial 0-3 HPF (0-3); Urobilinogen Normal mg/dL (Less than 2); pH, Urine 5.5 (5.0-9.0)
[2020-03-07 16:15] LABS: Bacteria/HPF Rare-Few HPF (None Seen)
[2020-03-07 16:33] LABS: ALT (SGPT) 22 U/L (8-55); AST (SGOT) 34 U/L (5-34); Albumin 4.3 g/dL (3.5-5.0); Alkaline Phosphatase 92 U/L (40-110); Anion Gap 21 mmol/L (10-20); BUN (Urea Nitrogen) 28 mg/dL (7.0-18.7); Bilirubin, Total 0.9 mg/dL (0.2-1.2); Calc. Creatinine Clearance 0 mL/min (70-130); Calcium 9.8 mg/dL (7.8-10.44); Carbon Dioxide 16 mmol/L (22-29); Chloride 105 mmol/L (98-107); Globulin 2.4 g/dL (2.4-3.5); Glucose 348 mg/dL (70-105); Lipase 59 U/L (8-78); Potassium 5.3 mmol/L (3.5-5.1); Protein, Total 6.7 g/dL (6.0-8.3); Sodium 137 mmol/L (136-145)
[2020-03-07] MEDS ORDERED: Haloperidol Lactate 5 MG/ML VIAL ONE (20:25)
[2020-03-07] MEDS ORDERED: diphenhydrAMINE 50 MG/ML VIAL ONE (20:25)
[2020-03-07 21:18] LABS: Base Excess-Venous -3.4 mmol/L (-2.0 to 3.0); Bicarbonate (HCO3v) 22.2 mmol/L (22.0-28.0); CO2 Tension (PvCO2) 41.4 mmHg (40.0-50.0); Calcium, Ionized 1.25 mmol/L (1.15-1.33); Chloride 108 mmol/L (98-107); Hemoglobin - Calc 7.9 g/dL (12.0-16.0); Potassium 4.7 mmol/L (3.5-5.1); Sodium 138 mmol/L (138-145); T. Carbon Dioxide 23.5 mmol/L (22.0-28.0); vO2 Saturation-calc 56.4 % (60.0-85.0)
[2020-03-07 21:46] LABS: Pregnancy Test - Urine (BHCG) Negative (Negative); Pregu Control Background? CLEAR/WHITE (CLR/WHITE); Pregu Control Bar Appear? YES (CONTROL BAR); Specific Gravity 1.017 (1.002-1.036)
[2020-03-07] MEDS ORDERED: Insulin Regular 300 UNITS/3 ML VIAL ONE (22:45)
--- NOTE | 2020-03-07 22:45 | CT ---
EXAM: CT ABDOMEN AND PELVIS HISTORY: Abdominal pain. Nausea. COMPARISON: 01/13/2020, 11/20/2019 Procedure: Multiple contiguous axial images were obtained and a CT of the abdomen and pelvis with IV contrast. C oronal reformats were performed. FINDINGS: Lower Chest: Clear Vessels: Normal caliber aorta Heart: Normal heart size Abdomen: Portal vein:Patent Gallbladder: No calcified gallstones. Normal caliber wall. Liver: within normal limits. Pancreas: within normal limits. Spleen: Persistent splenomegaly, measuring 19.5 cm in the craniocaudal dimension Adrenals: within normal limits. Kidneys: Symmetric enhancement of the kidneys. Redemonstration of multiple hypodensities in the left renal pelvis. Exophytic left renal cyst is also redemonstrated. Stable obstructive uropathy without associated calculus. Peritoneum: No ascites or free air, no fluid collection. Bowel: Limited evaluation due to the lack of oral contrast administration. No evidence of bowel obstr uction. Ileocecal junction is unremarkable. Normal caliber appendix. Scattered fecal material in a nondistended, nondilated colon. Mesentery and Retroperitoneum: Redemonstration of extensive retroperitoneal lymphadenopathy. The over all degree of lymphadenopathy is unchanged. Previous noted left aortic lymph node is stable, measuring 1.7 cm in maximum dimension. Additional lymphadenopathy along the left and right iliac isabella n is also redemonstrated. Abdominal Wall: within normal limits. Pelvis: Reproductive Organs: Reproductive organs are unremarkable. Pelvis: Redemonstration of external iliac lymphadenopathy, left greater than right. Bladder: within normal limits. Bones: within normal limits. IMPRESSION: 1. Redemonstration of splenomegaly as well as retroperitoneal lymphadenopathy. 2. Stable hypodensities in the left renal pelvis which may represent a chronic UPJ obstruction. No ev idence of associated calculus. Consider nonemergent retrograde IVP.
[2020-03-07] MEDS ORDERED: Ketorolac Tromethamine 30 MG/ML VIAL ONE (22:48)
== END 2020-03-07 23:18 | disposition home or self-care (01) ==
LOC: ERS 15:17
DX: N39.0 Urinary tract infection, site not specified (principal); R59.0 Localized enlarged lymph nodes; R11.2 Nausea with vomiting, unspecified; J45.909 Unspecified asthma, uncomplicated; E11.9 Type 2 diabetes mellitus without complications
CPT/HCPCS: 36415; 36416; 74177; 80053; 81003; 81015; 81025; 82010; 82330; 82803; 83690; 83930; 85025; 96365; 96366; 96375; J1200; J1630; J1815; J1885; J1956; Q9967

== ENCOUNTER 2020-04-24 04:42 | Inpatient (IN) | payer OTHER ==
[2020-04-24] MEDS ORDERED: Ondansetron ODT 4 MG TAB PO PRN (04:44)
[2020-04-24 04:57] VITALS: BMI 36.3
[2020-04-24] MEDS ORDERED: Dextrose 50% Abboject 50 ML SYRINGE IVP PRN (05:00)
[2020-04-24] MEDS ORDERED: Dextrose 5% in Water 1,000 ML IV PRN (05:00)
[2020-04-24] MEDS ORDERED: Guaifenesin DM 100-10/5 ML UDCUP PO PRN (05:07)
[2020-04-24] MEDS ORDERED: Morphine 2 MG/ML VIAL SLOW IVP PRN (05:35)
[2020-04-24] MEDS ORDERED: hydrALAZINE 20 MG/ML VIAL SLOW IVP PRN (05:35)
[2020-04-24] MEDS: Acetaminophen 325 MG TAB PO PRN ×2 (06:07→21:18)
[2020-04-24] MEDS: Cefepime 2 GM in Sodium Chloride 0.9% 100 ML IVPB SCH ×2 (06:09→17:21)
[2020-04-24 06:14] LABS: #Lymphocytes 0.9 thou/uL (1.20-3.40); #Monocytes 0.5 thou/uL (0.11-0.59); #Neutrophils 4.3 thou/uL (1.40-6.50); %Basophils 0.1 % (0.0-1.0); %Eosinophils 0.1 % (0.0-10.0); %Lymphocytes 15.7 % (21.0-51.0); %Neutrophils 76.1 % (42.0-75.0); Hemoglobin 8.8 g/dL (12.0-16.0); Mean Corpuscular HGB CONC 34.7 g/dL (32.0-36.0); Mean Corpuscular Hemoglobin 30.7 pg (27.0-31.0); Mean Corpuscular Volume 88.5 fL (78.0-98.0); Mean Platelet Volume 10.6 fL (7.4-10.4); Platelet Count 41 thou/uL (130-400); RBC Distribution Width 13.9 % (11.5-14.5); Red Blood Cell (RBC) Count 2.85 mill/uL (4.20-5.40); White Blood Cell (WBC) Count 5.6 thou/uL (4.8-10.8)
[2020-04-24] MEDS: Insulin Regular 300 UNITS/3 ML VIAL SC PRN ×4 (06:19→21:20)
[2020-04-24 06:34] LABS: Anion Gap 14 mmol/L (10-20); BUN (Urea Nitrogen) 21 mg/dL (7.0-18.7); Calc. Creatinine Clearance 77 mL/min (70-130); Calcium 8.5 mg/dL (7.8-10.44); Carbon Dioxide 16 mmol/L (22-29); Chloride 104 mmol/L (98-107); Glucose 292 mg/dL (70-105); Potassium 4.2 mmol/L (3.5-5.1); Sodium 130 mmol/L (136-145)
[2020-04-24] MEDS: Enoxaparin Sodium 40 MG/0.4 ML SYRINGE SC SCH (08:06)
[2020-04-24] MEDS: Lidocaine 5% Patch TD SCH (08:07)
[2020-04-24] MEDS ORDERED: FLU VACC QS2020-21(6MOS UP)/PF 60 MCG/0.5 ML SYRINGE IM ONE (21:00)
[2020-04-24] MEDS: Transdermal Patch Removal TOP SCH (21:21)
[2020-04-25] MEDS: Benzonatate 100 MG CAP PO PRN ×2 (02:45→20:12)
[2020-04-25] MEDS: Cefepime 2 GM in Sodium Chloride 0.9% 100 ML IVPB SCH (05:11)
[2020-04-25] MEDS: Insulin Regular 300 UNITS/3 ML VIAL SC PRN ×4 (06:01→20:14)
[2020-04-25 06:52] LABS: #Lymphocytes 0.7 thou/uL (1.20-3.40); #Monocytes 0.2 thou/uL (0.11-0.59); #Neutrophils 2.3 thou/uL (1.40-6.50); %Basophils 1.2 % (0.0-1.0); %Eosinophils 0.7 % (0.0-10.0); %Lymphocytes 21.4 % (21.0-51.0); %Monocytes 6.6 % (0.0-10.0); %Neutrophils 70.2 % (42.0-75.0); Hemoglobin 8.3 g/dL (12.0-16.0); Mean Corpuscular HGB CONC 34.3 g/dL (32.0-36.0); Mean Corpuscular Hemoglobin 30.5 pg (27.0-31.0); Mean Platelet Volume 9.8 fL (7.4-10.4); Platelet Count 44 thou/uL (130-400); RBC Distribution Width 13.9 % (11.5-14.5); Red Blood Cell (RBC) Count 2.71 mill/uL (4.20-5.40); White Blood Cell (WBC) Count 3.2 thou/uL (4.8-10.8)
[2020-04-25 07:03] LABS: Anion Gap 13 mmol/L (10-20); BUN (Urea Nitrogen) 32 mg/dL (7.0-18.7); Calc. Creatinine Clearance 69 mL/min (70-130); Calcium 8.4 mg/dL (7.8-10.44); Carbon Dioxide 19 mmol/L (22-29); Chloride 105 mmol/L (98-107); Glucose 343 mg/dL (70-105); Potassium 4.6 mmol/L (3.5-5.1); Sodium 132 mmol/L (136-145)
[2020-04-25] MEDS: Enoxaparin Sodium 40 MG/0.4 ML SYRINGE SC SCH (07:51)
[2020-04-25] MEDS: Lidocaine 5% Patch TD SCH (07:51)
[2020-04-25] MEDS ORDERED: Lidocaine Viscous Sol 2% 15 ml UD Cup SSP SCH (11:15)
[2020-04-25] MEDS ORDERED: guaiFENesin ER 600 MG TAB PO PRN (17:01)
[2020-04-25] MEDS ORDERED: Methocarbamol 500 MG TAB PO PRN (17:01)
[2020-04-25] MEDS ORDERED: Fioricet 325/50/40 mg Tablet PO PRN (17:01)
[2020-04-25] MEDS ORDERED: Fluticasone Propionate Nasal Spray 16 gm Bottle NASAL PRN (17:08)
[2020-04-25] MEDS: Acetaminophen 325 MG TAB PO PRN (17:10)
[2020-04-25] MEDS ORDERED: Albuterol 200 PUFF (6.7GM INHALER) INH PRN (17:27)
[2020-04-25] MEDS: Mometasone 200 MCG/Formoterol 5 MCG 120 PUFF INHALER INH SCH (18:28)
[2020-04-25] MEDS: Transdermal Patch Removal TOP SCH (20:21)
[2020-04-25] MEDS ORDERED: Montelukast Sodium 10 mg Tablet PO SCH (21:00)
[2020-04-25] MEDS ORDERED: Lantus 1000 UNITS/10 ML VIAL SC SCH (21:00)
[2020-04-25] MEDS ORDERED: Insulin Glargine 10 UNITS in Pre-Filled Syringe 1 EACH SC SCH (21:00)
[2020-04-25] MEDS: Pregabalin 25 MG CAP PO SCH (21:25)
[2020-04-26] MEDS: Lidocaine Viscous Sol 2% 15 ml UD Cup SSP PRN ×2 (00:33→10:21)
[2020-04-26] MEDS: Insulin Regular 300 UNITS/3 ML VIAL SC PRN (06:01)
[2020-04-26] MEDS: Mometasone 200 MCG/Formoterol 5 MCG 120 PUFF INHALER INH SCH (08:04)
[2020-04-26] MEDS: Lidocaine 5% Patch TD SCH (08:41)
[2020-04-26] MEDS: Enoxaparin Sodium 40 MG/0.4 ML SYRINGE SC SCH (08:41)
[2020-04-26] MEDS ORDERED: Insulin Glargine 10 UNITS in Pre-Filled Syringe 1 EACH SC SCH (09:00)
[2020-04-26] MEDS ORDERED: ECHINACEA 400 MG PO SCH (09:00)
[2020-04-26] MEDS ORDERED: Famotidine 20 MG TAB PO SCH (09:00)
[2020-04-26] MEDS ORDERED: Folic Acid 1 MG TAB PO SCH (09:00)
[2020-04-26] MEDS ORDERED: Lantus 1000 UNITS/10 ML VIAL SC SCH (09:00)
[2020-04-26] MEDS: Pregabalin 25 MG CAP PO SCH (09:13)
[2020-04-26 11:16] VITALS: BP 140/76; TEMP 97.6
== END 2020-04-26 11:10 | disposition home or self-care (01) | DRG 194 ==
LOC: T4-A 04:42 → OBSVTOIN 05:11
PROVIDERS: ADMIT Internal Medicine; ATTEND Internal Medicine
DX: J18.9 Pneumonia, unspecified organism (principal); E87.1 Hypo-osmolality and hyponatremia; D61.09 Other constitutional aplastic anemia; I12.9 Hypertensive chronic kidney disease with stage 1 through stage 4 chronic kidney disease, or unspecified chronic kidney disease; E11.22 Type 2 diabetes mellitus with diabetic chronic kidney disease; N18.30 Chronic kidney disease, stage 3 unspecified; K12.1 Other forms of stomatitis; J45.909 Unspecified asthma, uncomplicated; E11.65 Type 2 diabetes mellitus with hyperglycemia; R62.50 Unspecified lack of expected normal physiological development in childhood; M25.511 Pain in right shoulder; R13.10 Dysphagia, unspecified; Z79.4 Long term (current) use of insulin; Z79.899 Other long term (current) drug therapy; Z88.1 Allergy status to other antibiotic agents; Z88.2 Allergy status to sulfonamides; Z88.8 Allergy status to other drugs, medicaments and biological substances; Z79.52 Long term (current) use of systemic steroids
CPT/HCPCS: 36415; 36416; 74230; 80048; 85025; 87040; 87070; 87205; J0692; J1650; J1815; J2270; J3490; Q0162

== ENCOUNTER 2020-06-06 18:48 | Inpatient (IN) | payer OTHER ==
[2020-06-06] MEDS ORDERED: Ondansetron ODT 4 MG TAB SL PRN (22:45)
[2020-06-06] MEDS ORDERED: Ondansetron PF 4 MG/2 ML Vial IVP PRN (22:45)
[2020-06-06] MEDS ORDERED: Acetaminophen 325 MG TAB PO PRN (22:45)
[2020-06-06] MEDS ORDERED: Dextrose 5% in Water 1,000 ML IV PRN (23:09)
[2020-06-06] MEDS ORDERED: Dextrose 50% Abboject 50 ML SYRINGE SLOW IVP PRN (23:09)
[2020-06-06] MEDS ORDERED: guaiFENesin ER 600 MG TAB PO PRN (23:10)
[2020-06-06] MEDS ORDERED: Fioricet 325/50/40 mg Tablet PO PRN (23:10)
[2020-06-06] MEDS ORDERED: Fluticasone Propionate Nasal Spray 16 gm Bottle NASAL PRN (23:20)
[2020-06-06] MEDS ORDERED: Albuterol Sulfate 2.5 mg/3 ml Neb NEB PRN (23:21)
[2020-06-06] MEDS: HumaLOG 300 UNITS/3 ML VIAL SC PRN (23:26)
[2020-06-06] MEDS ORDERED: Lantus 1000 UNITS/10 ML VIAL SC SCH (23:30)
[2020-06-07] MEDS ORDERED: Guaifenesin DM 100-10/5 ML UDCUP PO PRN (00:19)
[2020-06-07] MEDS ORDERED: Melatonin 3 MG TAB PO SCH (00:45)
[2020-06-07] MEDS ORDERED: Calcium Carbonate 500 MG ChewTAB PO PRN (01:13)
[2020-06-07] MEDS ORDERED: Ondansetron ODT 4 MG TAB PO PRN (01:13)
[2020-06-07] MEDS ORDERED: Ondansetron PF 4 MG/2 ML Vial IVP PRN (01:13)
[2020-06-07] MEDS ORDERED: Senokot S 8.6-50 MG TAB PO PRN (01:13)
[2020-06-07] MEDS: MEROPENEM 1 GM/50 ML 1 GM in Premix Bag 1 BAG IVPB SCH ×2 (01:13→12:17)
[2020-06-07] MEDS ORDERED: Vancomycin 1 GM in Premix Bag 1 BAG IVPB SCH (02:00)
[2020-06-07] MEDS: HumaLOG 300 UNITS/3 ML VIAL SC PRN ×5 (04:06→22:04)
[2020-06-07 04:42] LABS: #Lymphocytes 0.3 thou/uL (1.20-3.40); #Neutrophils 1.4 thou/uL (1.40-6.50); %Basophils 0.3 % (0.0-1.0); %Eosinophils 0.4 % (0.0-10.0); %Lymphocytes 19.4 % (21.0-51.0); %Monocytes 1.9 % (0.0-10.0); Hemoglobin 9.2 g/dL (12.0-16.0); Mean Corpuscular HGB CONC 32.4 g/dL (32.0-36.0); Mean Corpuscular Hemoglobin 27.9 pg (27.0-31.0); Mean Corpuscular Volume 86.2 fL (78.0-98.0); Mean Platelet Volume 10.9 fL (7.4-10.4); Platelet Count 52 thou/uL (130-400); RBC Distribution Width 13.9 % (11.5-14.5); White Blood Cell (WBC) Count 1.8 thou/uL (4.8-10.8)
[2020-06-07 04:52] LABS: Anion Gap 16 mmol/L (10-20); BUN (Urea Nitrogen) 33 mg/dL (7.0-18.7); Calc. Creatinine Clearance 64 mL/min (70-130); Calcium 8.5 mg/dL (7.8-10.44); Carbon Dioxide 17 mmol/L (22-29); Chloride 103 mmol/L (98-107); Glucose 497 mg/dL (70-105); Potassium 5.1 mmol/L (3.5-5.1); Sodium 131 mmol/L (136-145)
[2020-06-07 05:07] LABS: Bacteria/HPF None Seen HPF (None Seen); Bilirubin Negative (Negative); Blood, Urine 1+ (Negative); Clarity Clear (Clear); Glucose, Urine (Dipstick) Greater than 1000 mg/dL (Negative); Ketone, Urine Negative (Negative); Leukocyte Negative Leu/uL (Negative); Nitrite Negative (Negative); Protein, Urine (Dipstick) 10 mg/dL (Neg-Trace); RBC/HPF 0-3 HPF (0-3); Specific Gravity, Urine 1.022 (1.002-1.036); Squamous Epithelial 0-3 HPF (0-3); Urobilinogen Normal mg/dL (Less than 2); WBC/HPF 0-3 HPF (0-3)
[2020-06-07] MEDS: methylPREDNISolone Sod Succ 40 MG VIAL IVP SCH ×2 (06:07→12:15)
[2020-06-07] MEDS: Mometasone 200 MCG/Formoterol 5 MCG 120 PUFF INHALER INH SCH ×3 (07:26→18:52)
[2020-06-07] MEDS ORDERED: Iopamidol-370 76% 500 ML 1 ML ONE (08:22)
[2020-06-07] MEDS ORDERED: Famotidine 20 MG TAB PO SCH (09:00)
[2020-06-07] MEDS: Lantus 1000 UNITS/10 ML VIAL SC SCH ×2 (10:08→22:04)
[2020-06-07] MEDS: Folic Acid 1 MG TAB PO SCH (10:09)
[2020-06-07] MEDS: Pregabalin 25 MG CAP PO SCH ×2 (10:09→22:03)
[2020-06-07] MEDS: Famotidine 20 MG TAB PO SCH (10:09)
[2020-06-07] MEDS ORDERED: Lantus 1000 UNITS/10 ML VIAL SC SCH (15:00)
[2020-06-07] MEDS: Vancomycin 1.5 GRAM/300 ML BAG 1.5 GM in Premix Bag 1 BAG IVPB SCH (15:30)
[2020-06-07] MEDS: Benzonatate 100 MG CAP PO PRN (22:03)
[2020-06-07] MEDS: Montelukast Sodium 10 mg Tablet PO SCH (22:03)
[2020-06-07] MEDS: Melatonin 3 MG TAB PO PRN (22:04)
[2020-06-07] MEDS: Acetaminophen 325 MG TAB PO PRN (22:18)
[2020-06-08] MEDS: MEROPENEM 1 GM/50 ML 1 GM in Premix Bag 1 BAG IVPB SCH ×2 (00:52→12:26)
[2020-06-08] MEDS: HumaLOG 300 UNITS/3 ML VIAL SC PRN ×5 (00:53→21:36)
[2020-06-08] MEDS: Mometasone 200 MCG/Formoterol 5 MCG 120 PUFF INHALER INH SCH ×2 (07:42→19:22)
[2020-06-08] MEDS: Pregabalin 25 MG CAP PO SCH ×2 (08:56→20:20)
[2020-06-08] MEDS: Famotidine 20 MG TAB PO SCH (08:57)
[2020-06-08] MEDS: Folic Acid 1 MG TAB PO SCH (08:57)
[2020-06-08] MEDS ORDERED: methylPREDNISolone Sod Succ 40 MG VIAL IVP SCH (09:00)
[2020-06-08] MEDS: Benzonatate 100 MG CAP PO PRN ×2 (09:00→20:20)
[2020-06-08] MEDS: Lantus 1000 UNITS/10 ML VIAL SC SCH ×2 (09:00→21:36)
[2020-06-08] MEDS ORDERED: Lantus 1000 UNITS/10 ML VIAL SC SCH (09:30)
[2020-06-08 13:48] VITALS: BMI 38.2
[2020-06-08] MEDS: Acetaminophen 325 MG TAB PO PRN (14:46)
[2020-06-08] MEDS: Vancomycin 1.5 GRAM/300 ML BAG 1.5 GM in Premix Bag 1 BAG IVPB SCH (14:46)
[2020-06-08 15:22] LABS: Vancomycin, Trough 16.2 ug/mL
[2020-06-08] MEDS: Montelukast Sodium 10 mg Tablet PO SCH (20:20)
[2020-06-08] MEDS: traMADol HCl 50 MG TAB PO PRN (20:23)
[2020-06-08] MEDS: Melatonin 3 MG TAB PO PRN (23:50)
[2020-06-09] MEDS: HumaLOG 300 UNITS/3 ML VIAL SC PRN ×5 (00:59→20:47)
[2020-06-09] MEDS: MEROPENEM 1 GM/50 ML 1 GM in Premix Bag 1 BAG IVPB SCH ×2 (01:01→13:19)
[2020-06-09] MEDS: Mometasone 200 MCG/Formoterol 5 MCG 120 PUFF INHALER INH SCH ×2 (07:33→21:03)
[2020-06-09] MEDS ORDERED: predniSONE 20 MG TAB PO SCH ×2 (08:00)
[2020-06-09] MEDS: Folic Acid 1 MG TAB PO SCH (09:25)
[2020-06-09] MEDS: Famotidine 20 MG TAB PO SCH (09:25)
[2020-06-09] MEDS: Pregabalin 25 MG CAP PO SCH ×2 (09:26→20:44)
[2020-06-09] MEDS: Lantus 1000 UNITS/10 ML VIAL SC SCH (09:29)
[2020-06-09 11:57] LABS: #Basophils 0.1 thou/uL (0.0-0.2); #Monocytes 0.1 thou/uL (0.11-0.59); #Neutrophils 1.7 thou/uL (1.40-6.50); %Basophils 2.5 % (0.0-1.0); %Eosinophils 0.4 % (0.0-10.0); %Lymphocytes 34.4 % (21.0-51.0); %Monocytes 3.6 % (0.0-10.0); %Neutrophils 59.1 % (42.0-75.0); Hemoglobin 9.7 g/dL (12.0-16.0); Mean Corpuscular HGB CONC 33.9 g/dL (32.0-36.0); Mean Corpuscular Hemoglobin 29.2 pg (27.0-31.0); Mean Corpuscular Volume 86.1 fL (78.0-98.0); Mean Platelet Volume 10.8 fL (7.4-10.4); Platelet Count 55 thou/uL (130-400); Red Blood Cell (RBC) Count 3.31 mill/uL (4.20-5.40); White Blood Cell (WBC) Count 2.8 thou/uL (4.8-10.8)
[2020-06-09 12:04] LABS: ALT (SGPT) 8 U/L (8-55); AST (SGOT) 11 U/L (5-34); Albumin 3.7 g/dL (3.5-5.0); Alkaline Phosphatase 75 U/L (40-110); Anion Gap 15 mmol/L (10-20); BUN (Urea Nitrogen) 42 mg/dL (7.0-18.7); Bilirubin, Total 0.3 mg/dL (0.2-1.2); Calc. Creatinine Clearance 74 mL/min (70-130); Calcium 8.8 mg/dL (7.8-10.44); Carbon Dioxide 16 mmol/L (22-29); Chloride 109 mmol/L (98-107); Globulin 2.3 g/dL (2.4-3.5); Glucose 254 mg/dL (70-105); Potassium 4.3 mmol/L (3.5-5.1); Sodium 136 mmol/L (136-145)
[2020-06-09] MEDS: Sodium Chloride 0.45% 1,000 ML IV SCH (13:20)
[2020-06-09] MEDS: Vancomycin 1.5 GRAM/300 ML BAG 1.5 GM in Premix Bag 1 BAG IVPB SCH (15:35)
[2020-06-09] MEDS: Montelukast Sodium 10 mg Tablet PO SCH (20:44)
[2020-06-09] MEDS ORDERED: Lantus 1000 UNITS/10 ML VIAL SC SCH (21:00)
[2020-06-09] MEDS: Melatonin 3 MG TAB PO PRN (23:25)
[2020-06-10] MEDS: MEROPENEM 1 GM/50 ML 1 GM in Premix Bag 1 BAG IVPB SCH ×2 (00:24→12:35)
[2020-06-10] MEDS: traMADol HCl 50 MG TAB PO PRN ×2 (00:30→12:39)
[2020-06-10] MEDS: Sodium Chloride 0.45% 1,000 ML IV SCH (05:43)
[2020-06-10] MEDS: HumaLOG 300 UNITS/3 ML VIAL SC PRN ×4 (05:45→20:56)
[2020-06-10 05:54] LABS: #Lymphocytes 1.1 thou/uL (1.20-3.40); #Monocytes 0.2 thou/uL (0.11-0.59); #Neutrophils 1.7 thou/uL (1.40-6.50); %Basophils 0.3 % (0.0-1.0); %Lymphocytes 36.9 % (21.0-51.0); %Monocytes 7.8 % (0.0-10.0); Mean Corpuscular HGB CONC 33.5 g/dL (32.0-36.0); Mean Corpuscular Hemoglobin 28.7 pg (27.0-31.0); Mean Corpuscular Volume 85.8 fL (78.0-98.0); Mean Platelet Volume 10.1 fL (7.4-10.4); Platelet Count 62 thou/uL (130-400); RBC Distribution Width 14.2 % (11.5-14.5); Red Blood Cell (RBC) Count 3.12 mill/uL (4.20-5.40); White Blood Cell (WBC) Count 3.1 thou/uL (4.8-10.8)
[2020-06-10 06:04] LABS: ALT (SGPT) 8 U/L (8-55); AST (SGOT) 14 U/L (5-34); Albumin 3.3 g/dL (3.5-5.0); Alkaline Phosphatase 75 U/L (40-110); Anion Gap 13 mmol/L (10-20); BUN (Urea Nitrogen) 43 mg/dL (7.0-18.7); Bilirubin, Total 0.3 mg/dL (0.2-1.2); Calc. Creatinine Clearance 81 mL/min (70-130); Calcium 8.5 mg/dL (7.8-10.44); Carbon Dioxide 19 mmol/L (22-29); Chloride 106 mmol/L (98-107); Globulin 2.2 g/dL (2.4-3.5); Glucose 338 mg/dL (70-105); Potassium 4.8 mmol/L (3.5-5.1); Protein, Total 5.5 g/dL (6.0-8.3); Sodium 133 mmol/L (136-145)
[2020-06-10] MEDS: Mometasone 200 MCG/Formoterol 5 MCG 120 PUFF INHALER INH SCH ×2 (06:25→20:16)
[2020-06-10] MEDS ORDERED: predniSONE 5 MG TAB PO SCH (08:00)
[2020-06-10] MEDS: Folic Acid 1 MG TAB PO SCH (08:43)
[2020-06-10] MEDS: Lantus 1000 UNITS/10 ML VIAL SC SCH ×2 (08:43→20:53)
[2020-06-10] MEDS: Famotidine 20 MG TAB PO SCH (08:43)
[2020-06-10] MEDS: Pregabalin 25 MG CAP PO SCH ×2 (09:34→21:09)
[2020-06-10] MEDS: Vancomycin 1.5 GRAM/300 ML BAG 1.5 GM in Premix Bag 1 BAG IVPB SCH (15:34)
[2020-06-10] MEDS: Amoxicillin/Potassium Clav 875 MG TAB PO SCH (20:38)
[2020-06-10] MEDS: Montelukast Sodium 10 mg Tablet PO SCH (20:38)
[2020-06-10] MEDS ORDERED: Miconazole 100 mg Supp Box of 7 VAG SCH (21:00)
[2020-06-10] MEDS: Miconazole 2% Vaginal Cream 45 GM TUBE VAG SCH (21:03)
[2020-06-11] MEDS: HumaLOG 300 UNITS/3 ML VIAL SC PRN ×2 (03:49→14:05)
[2020-06-11] MEDS: Mometasone 200 MCG/Formoterol 5 MCG 120 PUFF INHALER INH SCH ×2 (07:08→18:59)
[2020-06-11] MEDS: Amoxicillin/Potassium Clav 875 MG TAB PO SCH ×2 (09:25→20:50)
[2020-06-11] MEDS: Folic Acid 1 MG TAB PO SCH (09:25)
[2020-06-11] MEDS: Lantus 1000 UNITS/10 ML VIAL SC SCH ×2 (09:35→20:53)
[2020-06-11] MEDS: Pregabalin 25 MG CAP PO SCH ×2 (09:39→20:51)
[2020-06-11] MEDS: Montelukast Sodium 10 mg Tablet PO SCH (20:51)
[2020-06-11] MEDS: Miconazole 2% Vaginal Cream 45 GM TUBE VAG SCH (20:52)
[2020-06-12] MEDS: traMADol HCl 50 MG TAB PO PRN (00:13)
[2020-06-12 00:56] VITALS: TEMP 97.7
[2020-06-12] MEDS: Pregabalin 25 MG CAP PO SCH (07:53)
[2020-06-12] MEDS: Amoxicillin/Potassium Clav 875 MG TAB PO SCH (07:54)
[2020-06-12] MEDS: Folic Acid 1 MG TAB PO SCH (07:54)
[2020-06-12] MEDS: Lantus 1000 UNITS/10 ML VIAL SC SCH (07:55)
[2020-06-12] MEDS: Mometasone 200 MCG/Formoterol 5 MCG 120 PUFF INHALER INH SCH (08:24)
[2020-06-12 08:41] VITALS: BP 134/86
== END 2020-06-12 09:56 | disposition home or self-care (01) | DRG 194 ==
LOC: 2NO 18:48 → EEVIPCON 18:48 → T4-B 06-08 18:01
PROVIDERS: ADMIT Internal Medicine; ATTEND Internal Medicine
DX: J18.9 Pneumonia, unspecified organism (principal); D61.818 Other pancytopenia; I12.0 Hypertensive chronic kidney disease with stage 5 chronic kidney disease or end stage renal disease; J45.41 Moderate persistent asthma with (acute) exacerbation; N17.9 Acute kidney failure, unspecified; R41.89 Other symptoms and signs involving cognitive functions and awareness; E11.22 Type 2 diabetes mellitus with diabetic chronic kidney disease; E11.40 Type 2 diabetes mellitus with diabetic neuropathy, unspecified; K21.9 Gastro-esophageal reflux disease without esophagitis; E66.9 Obesity, unspecified; D73.1 Hypersplenism; E11.65 Type 2 diabetes mellitus with hyperglycemia; T38.0X5A Adverse effect of glucocorticoids and synthetic analogues, initial encounter; N18.30 Chronic kidney disease, stage 3 unspecified; Z89.422 Acquired absence of other left toe(s); Z89.421 Acquired absence of other right toe(s); Z88.1 Allergy status to other antibiotic agents; Z88.8 Allergy status to other drugs, medicaments and biological substances; Z68.38 Body mass index [BMI] 38.0-38.9, adult
CPT/HCPCS: 36415; 36416; 71275; 80048; 80053; 80202; 81001; 83880; 85025; 94640; J1815; J2185; J2920; J3370; J7512; J7620; Q0162; Q9967

== ENCOUNTER 2020-07-06 23:27 | Inpatient (IN) | payer OTHER ==
[2020-07-06 23:33] VITALS: BMI 40.9
[2020-07-07] MEDS ORDERED: Zolpidem Tartrate 5 MG TAB PO PRN (00:10)
[2020-07-07] MEDS ORDERED: Bisacodyl 5 MG TAB PO PRN (00:10)
[2020-07-07] MEDS ORDERED: hydrALAZINE 20 MG/ML VIAL SLOW IVP PRN (00:14)
[2020-07-07 05:17] LABS: Eosinophils 5 % (0-10); Hemoglobin 8.8 g/dL (12.0-16.0); Lymphocytes 24 % (21-51); MDiff Complete? YES; Mean Corpuscular HGB CONC 32.6 g/dL (32.0-36.0); Mean Corpuscular Hemoglobin 27.7 pg (27.0-31.0); Mean Corpuscular Volume 85.1 fL (78.0-98.0); Mean Platelet Volume 10.6 fL (7.4-10.4); Monocytes 10 % (0-10); Neutrophil 61 % (42-75); Platelet Count 65 thou/uL (130-400); Platelet Morphology Comment Appears Decreased; RBC Distribution Width 14.9 % (11.5-14.5); Red Blood Cell (RBC) Count 3.16 mill/uL (4.20-5.40); White Blood Cell (WBC) Count 2.9 thou/uL (4.8-10.8)
[2020-07-07] MEDS: methylPREDNISolone Sod Succ 40 MG VIAL IVP SCH ×3 (05:20→17:47)
[2020-07-07 05:32] LABS: ALT (SGPT) 7 U/L (8-55); AST (SGOT) 10 U/L (5-34); Albumin 3.2 g/dL (3.5-5.0); Alkaline Phosphatase 61 U/L (40-110); Anion Gap 13 mmol/L (10-20); BUN (Urea Nitrogen) 24 mg/dL (7.0-18.7); Bilirubin, Total 0.5 mg/dL (0.2-1.2); Calc. Creatinine Clearance 86 mL/min (70-130); Calcium 8.9 mg/dL (7.8-10.44); Carbon Dioxide 19 mmol/L (22-29); Chloride 109 mmol/L (98-107); Globulin 2.2 g/dL (2.4-3.5); Glucose 212 mg/dL (70-105); Protein, Total 5.4 g/dL (6.0-8.3); Sodium 136 mmol/L (136-145)
[2020-07-07] MEDS ORDERED: HumaLOG 300 UNITS/3 ML VIAL SC SCH (09:00)
[2020-07-07] MEDS: Famotidine 20 MG TAB PO SCH ×2 (09:05→21:41)
[2020-07-07] MEDS: Enoxaparin Sodium 40 MG/0.4 ML SYRINGE SC SCH ×2 (09:05→12:01)
[2020-07-07] MEDS: Lantus 1000 UNITS/10 ML VIAL SC SCH (09:07)
[2020-07-07] MEDS: HumaLOG 300 UNITS/3 ML VIAL SC PRN ×2 (12:02→16:49)
[2020-07-07] MEDS ORDERED: Insulin Regular 300 UNITS/3 ML VIAL SC SCH (12:45)
[2020-07-07] MEDS: Acetaminophen/Codeine 30-300mg Tablet PO PRN (13:09)
[2020-07-07] MEDS: Acetaminophen 325 MG TAB PO PRN (18:24)
[2020-07-07 18:37] LABS: Immunoglob - A (Total IgA) Less than 5.00 mg/dL (65-421)
[2020-07-07] MEDS ORDERED: Lantus 1000 UNITS/10 ML VIAL SC SCH (21:00)
[2020-07-07] MEDS: Sodium Bicarbonate Tab 325 MG TAB PO SCH (21:41)
[2020-07-07] MEDS: HumaLOG 300 UNITS/3 ML VIAL SC SCH (21:42)
[2020-07-08] MEDS: methylPREDNISolone Sod Succ 40 MG VIAL IVP SCH ×4 (00:08→12:44)
[2020-07-08] MEDS: Guaifenesin DM 100-10/5 ML UDCUP PO PRN ×2 (01:01→07:44)
[2020-07-08 05:34] LABS: #Lymphocytes 0.4 thou/uL (1.20-3.40); #Monocytes 0.1 thou/uL (0.11-0.59); #Neutrophils 2.4 thou/uL (1.40-6.50); %Basophils 0.6 % (0.0-1.0); %Eosinophils 0.5 % (0.0-10.0); %Lymphocytes 14.5 % (21.0-51.0); %Monocytes 2.3 % (0.0-10.0); %Neutrophils 82.1 % (42.0-75.0); Hemoglobin 9.2 g/dL (12.0-16.0); Mean Corpuscular HGB CONC 32.5 g/dL (32.0-36.0); Mean Corpuscular Hemoglobin 27.7 pg (27.0-31.0); Mean Corpuscular Volume 85.2 fL (78.0-98.0); Mean Platelet Volume 10.6 fL (7.4-10.4); Platelet Count 71 thou/uL (130-400); RBC Distribution Width 14.8 % (11.5-14.5); Red Blood Cell (RBC) Count 3.33 mill/uL (4.20-5.40); White Blood Cell (WBC) Count 2.9 thou/uL (4.8-10.8)
[2020-07-08 05:58] LABS: Anion Gap 16 mmol/L (10-20); BUN (Urea Nitrogen) 38 mg/dL (7.0-18.7); Calc. Creatinine Clearance 62 mL/min (70-130); Calcium 9.8 mg/dL (7.8-10.44); Carbon Dioxide 18 mmol/L (22-29); Chloride 101 mmol/L (98-107); Potassium 6.1 mmol/L (3.5-5.1); Sodium 129 mmol/L (136-145)
[2020-07-08 06:03] LABS: Glucose 630 mg/dL (70-105)
[2020-07-08] MEDS ORDERED: HumaLOG 300 UNITS/3 ML VIAL SC SCH ×2 (06:45→09:00)
[2020-07-08] MEDS: Famotidine 20 MG TAB PO SCH ×2 (07:42→21:17)
[2020-07-08] MEDS: Sodium Bicarbonate Tab 325 MG TAB PO SCH ×2 (07:42→21:17)
[2020-07-08] MEDS: HumaLOG 300 UNITS/3 ML VIAL SC SCH (07:43)
[2020-07-08] MEDS: Enoxaparin Sodium 40 MG/0.4 ML SYRINGE SC SCH (08:46)
[2020-07-08] MEDS: Lantus 1000 UNITS/10 ML VIAL SC SCH (08:57)
[2020-07-08] MEDS: Acetaminophen/Codeine 30-300mg Tablet PO PRN (09:00)
[2020-07-08] MEDS ORDERED: Insulin Regular 300 UNITS/3 ML VIAL SC PRN (09:11)
[2020-07-08] MEDS ORDERED: Dextrose 50% Abboject 50 ML SYRINGE SLOW IVP PRN (09:11)
[2020-07-08] MEDS ORDERED: Dextrose 5% in Water 1,000 ML IV PRN (09:11)
[2020-07-08] MEDS ORDERED: Insulin Regular 300 UNITS/3 ML VIAL SC SCH (11:30)
[2020-07-08] MEDS ORDERED: Insulin Regular 300 UNITS/3 ML VIAL IVP SCH ×2 (11:30→17:00)
[2020-07-08 12:20] LABS: Anion Gap 16 mmol/L (10-20); BUN (Urea Nitrogen) 44 mg/dL (7.0-18.7); Calc. Creatinine Clearance 63 mL/min (70-130); Carbon Dioxide 18 mmol/L (22-29); Chloride 104 mmol/L (98-107); Glucose 536 mg/dL (70-105); Potassium 4.8 mmol/L (3.5-5.1); Sodium 133 mmol/L (136-145)
[2020-07-08] MEDS ORDERED: HUMULIN R 100 UNITS in Sodium Chloride 0.9% 100 ML IVPB SCH (13:00)
[2020-07-08 14:37] LABS: Ref Lab Test Ordered SOLUBLE FAS LIGAND
[2020-07-08 14:39] LABS: Ref Lab Test Ordered IL 10; Reference Lab Name LABCORP
[2020-07-08] MEDS: HUMULIN R 100 UNITS in Sodium Chloride 0.9% 100 ML IVPB SCH (21:43)
[2020-07-09] MEDS: methylPREDNISolone Sod Succ 40 MG VIAL IVP SCH ×2 (01:55→12:24)
[2020-07-09 04:11] LABS: Anion Gap 14 mmol/L (10-20); BUN (Urea Nitrogen) 46 mg/dL (7.0-18.7); Calc. Creatinine Clearance 78 mL/min (70-130); Calcium 10.1 mg/dL (7.8-10.44); Carbon Dioxide 22 mmol/L (22-29); Chloride 107 mmol/L (98-107); Glucose 141 mg/dL (70-105); Potassium 4.6 mmol/L (3.5-5.1); Sodium 138 mmol/L (136-145)
[2020-07-09] MEDS ORDERED: Lantus 1000 UNITS/10 ML VIAL SC SCH ×3 (09:00→21:00)
[2020-07-09] MEDS: Sodium Bicarbonate Tab 325 MG TAB PO SCH ×2 (09:06→20:45)
[2020-07-09] MEDS: Famotidine 20 MG TAB PO SCH ×2 (09:06→20:45)
[2020-07-09] MEDS: HUMULIN R 100 UNITS in Sodium Chloride 0.9% 100 ML IVPB SCH (12:21)
[2020-07-09] MEDS: Acetaminophen/Codeine 30-300mg Tablet PO PRN (14:11)
[2020-07-09] MEDS: Insulin Regular 300 UNITS/3 ML VIAL SC PRN ×3 (16:36→23:58)
[2020-07-09] MEDS: Insulin Regular 300 UNITS/3 ML VIAL SC SCH (16:36)
[2020-07-09] MEDS: Ondansetron PF 4 MG/2 ML Vial IVP PRN (22:51)
[2020-07-09] MEDS: Guaifenesin DM 100-10/5 ML UDCUP PO PRN (22:53)
[2020-07-10] MEDS: Acetaminophen/Codeine 30-300mg Tablet PO PRN (04:47)
[2020-07-10] MEDS: Insulin Regular 300 UNITS/3 ML VIAL SC PRN ×3 (04:50→15:12)
[2020-07-10] MEDS ORDERED: Chloraseptic Spray 180 ml Bottle PO PRN ×2 (05:11→05:13)
[2020-07-10 06:32] LABS: Hemoglobin A1c 8.7 % (4.0-6.0)
[2020-07-10 06:51] LABS: Anion Gap 14 mmol/L (10-20); BUN (Urea Nitrogen) 45 mg/dL (7.0-18.7); Calc. Creatinine Clearance 78 mL/min (70-130); Calcium 9.2 mg/dL (7.8-10.44); Carbon Dioxide 21 mmol/L (22-29); Chloride 106 mmol/L (98-107); Glucose 141 mg/dL (70-105); Potassium 4.7 mmol/L (3.5-5.1); Sodium 136 mmol/L (136-145)
[2020-07-10] MEDS: Insulin Regular 300 UNITS/3 ML VIAL SC SCH ×2 (08:21→11:35)
[2020-07-10] MEDS: Ondansetron PF 4 MG/2 ML Vial IVP PRN (08:24)
[2020-07-10] MEDS: Sodium Bicarbonate Tab 325 MG TAB PO SCH (08:58)
[2020-07-10] MEDS: Famotidine 20 MG TAB PO SCH (08:58)
[2020-07-10] MEDS ORDERED: Lantus 1000 UNITS/10 ML VIAL SC SCH (09:00)
[2020-07-10 12:32] VITALS: BP 122/72; TEMP 97.6
[2020-07-10] MEDS: Acetaminophen 325 MG TAB PO PRN (13:45)
[2020-07-10] MEDS: methylPREDNISolone Sod Succ 40 MG VIAL IVP SCH ×2 (13:45)
[2020-07-10 18:13] LABS: %CD19 (Earliest B-Cells) 16.1 % (3.3-25.4); %CD3 (Mature T-Cells) 80.7 % (57.5-86.2); %CD4 (Helper/Inducer) 41.7 % (30.8-58.5); %CD8 (Cytotoxic/Suppressor) 40.5 % (12.0-35.5); CD4/CD8 Ratio 1.03 (0.92-3.72); Lymphocytes/Gated Cell Count 0.4 x10E3/uL (0.7-3.1)
[2020-07-10 18:13] LABS: %CD4 (Helper/Inducer) 47.4 % (30.8-58.5); Absolute CD4 190 /uL (359-1519); Lymphocytes/Gated Cell Count 0.4 x10E3/uL (0.7-3.1); Total Lymphocyte 16 % (Not Estab.); WBC Total Count 2.5 x10E3/uL (3.4-10.8)
== END 2020-07-10 15:20 | disposition home or self-care (01) | DRG 814 ==
LOC: 2SW 23:27 → 2NO 07-07 18:38 → IMCU/EMU 07-08 17:17 → ONC 07-09 18:51
PROVIDERS: ADMIT Internal Medicine; ATTEND Internal Medicine
DX: D83.9 Common variable immunodeficiency, unspecified (principal); J18.9 Pneumonia, unspecified organism; D61.818 Other pancytopenia; E87.2 Acidosis; N17.9 Acute kidney failure, unspecified; Z68.41 Body mass index [BMI] 40.0-44.9, adult; D84.9 Immunodeficiency, unspecified; D80.1 Nonfamilial hypogammaglobulinemia; K21.9 Gastro-esophageal reflux disease without esophagitis; J45.909 Unspecified asthma, uncomplicated; E87.5 Hyperkalemia; N18.30 Chronic kidney disease, stage 3 unspecified; I12.9 Hypertensive chronic kidney disease with stage 1 through stage 4 chronic kidney disease, or unspecified chronic kidney disease; D73.1 Hypersplenism; E66.9 Obesity, unspecified; E10.65 Type 1 diabetes mellitus with hyperglycemia; E10.22 Type 1 diabetes mellitus with diabetic chronic kidney disease; Z88.2 Allergy status to sulfonamides; Z88.1 Allergy status to other antibiotic agents; Z79.4 Long term (current) use of insulin
CPT/HCPCS: 36415; 36416; 80048; 80053; 82607; 83036; 85007; 85025; 85027; 85048; 86359; 86360; 86361; 87040; 87070; 87205; J1650; J1815; J1956; J2405; J2920; J3490

== ENCOUNTER 2020-08-01 16:02 | Inpatient (IN) | payer OTHER ==
[2020-08-01] MEDS ORDERED: Senokot S 8.6-50 MG TAB PO PRN (16:52)
[2020-08-01] MEDS ORDERED: Guaifenesin DM 100-10/5 ML UDCUP PO PRN (16:52)
[2020-08-01] MEDS ORDERED: Albuterol Sulfate 2.5 mg/3 ml Neb NEB PRN (16:55)
[2020-08-01] MEDS ORDERED: Dextrose 50% Abboject 50 ML SYRINGE SLOW IVP PRN (16:59)
[2020-08-01] MEDS ORDERED: Dextrose 5% in Water 1,000 ML IV PRN (16:59)
[2020-08-01] MEDS ORDERED: HumaLOG 300 UNITS/3 ML VIAL SC PRN ×2 (16:59→21:40)
[2020-08-01 17:20] LABS: Troponin I 0.072 ng/mL (< 0.028)
[2020-08-01 20:24] LABS: CKMB 0.9 ng/mL (0-6.6)
[2020-08-01] MEDS: Sodium Chloride 0.9% 1,000 ML IV SCH (21:25)
[2020-08-01] MEDS: Lantus 1000 UNITS/10 ML VIAL SC SCH (21:28)
[2020-08-01] MEDS: Acetaminophen 325 MG TAB PO PRN (21:29)
[2020-08-01 22:54] VITALS: BMI 36.6
[2020-08-01 23:51] LABS: Legionella Urinary Ag Negative (Negative); Strep pneumo Urine Ag NEGATIVE (NEGATIVE)
[2020-08-02] MEDS: Sodium Chloride 0.9% 1,000 ML IV SCH ×4 (04:12→21:39)
[2020-08-02 05:28] LABS: ALT (SGPT) 12 U/L (8-55); AST (SGOT) 11 U/L (5-34); Albumin 3.5 g/dL (3.5-5.0); Alkaline Phosphatase 56 U/L (40-110); Anion Gap 14 mmol/L (10-20); BUN (Urea Nitrogen) 31 mg/dL (7.0-18.7); Bilirubin, Total 0.3 mg/dL (0.2-1.2); CRP (Inflammatory) 12.57 mg/dL (= or < 0.5); Calc. Creatinine Clearance 65 mL/min (70-130); Calcium 8.5 mg/dL (7.8-10.44); Carbon Dioxide 20 mmol/L (22-29); Chloride 102 mmol/L (98-107); Glucose 417 mg/dL (70-105); Potassium 4.7 mmol/L (3.5-5.1); Protein, Total 6.5 g/dL (6.0-8.3); Sodium 131 mmol/L (136-145)
[2020-08-02 05:33] LABS: Mean Corpuscular HGB CONC 33.4 g/dL (32.0-36.0); Mean Corpuscular Hemoglobin 28.9 pg (27.0-31.0); Mean Corpuscular Volume 86.8 fL (78.0-98.0); Mean Platelet Volume 10.8 fL (7.4-10.4); Platelet Count 74 thou/uL (130-400); RBC Distribution Width 15.3 % (11.5-14.5); Red Blood Cell (RBC) Count 3.47 mill/uL (4.20-5.40); White Blood Cell (WBC) Count 2.2 thou/uL (4.8-10.8)
[2020-08-02] MEDS: Lantus 1000 UNITS/10 ML VIAL SC SCH ×2 (08:41→20:28)
[2020-08-02] MEDS: predniSONE 20 MG TAB PO SCH (08:42)
[2020-08-02] MEDS: Pregabalin 25 MG CAP PO SCH (08:47)
[2020-08-02] MEDS ORDERED: Methocarbamol 500 MG TAB PO PRN (08:48)
[2020-08-02] MEDS ORDERED: Enoxaparin Sodium 40 MG/0.4 ML SYRINGE SC SCH (09:00)
[2020-08-02] MEDS ORDERED: HumaLOG 300 UNITS/3 ML VIAL SC PRN (09:02)
[2020-08-02] MEDS: Benzonatate 100 MG CAP PO PRN ×2 (10:48→14:30)
[2020-08-02] MEDS: Acetaminophen 325 MG TAB PO PRN (10:48)
[2020-08-02] MEDS: HumaLOG 300 UNITS/3 ML VIAL SC PRN ×2 (11:45→17:09)
[2020-08-02] MEDS: traMADol HCl 50 MG TAB PO PRN (14:30)
[2020-08-02] MEDS ORDERED: cefTRIAXone\\ROCEPHIN 1 GM in Sodium Chloride 0.9% 100 ML IVPB SCH (18:00)
[2020-08-02] MEDS: Ondansetron PF 4 MG/2 ML Vial IVP PRN (19:01)
[2020-08-02] MEDS ORDERED: Azithromycin 500 MG in Sodium Chloride 0.9% 250 ML 250 ML IVPB SCH (20:00)
[2020-08-02 21:24] LABS: SARS-CoV-2 IgG Ab Non-Reactive (NonReactive); SARS-CoV-2 IgG Index 0.12 S/CO (< 1.40)
[2020-08-03] MEDS: Ondansetron PF 4 MG/2 ML Vial IVP PRN (01:09)
[2020-08-03] MEDS: Benzonatate 100 MG CAP PO PRN ×2 (02:49→12:23)
[2020-08-03 05:05] LABS: Anion Gap 13 mmol/L (10-20); BUN (Urea Nitrogen) 32 mg/dL (7.0-18.7); Band 2 % (5-11); Calc. Creatinine Clearance 78 mL/min (70-130); Calcium 8.1 mg/dL (7.8-10.44); Carbon Dioxide 21 mmol/L (22-29); Chloride 107 mmol/L (98-107); Glucose 185 mg/dL (70-105); Hemoglobin 8.3 g/dL (12.0-16.0); Hypochromia SLIGHT = 6-15 cells (100X) (0-5/hpf); Lymphocytes 20 % (21-51); MDiff Complete? YES; Mean Corpuscular HGB CONC 33.2 g/dL (32.0-36.0); Mean Corpuscular Hemoglobin 28.1 pg (27.0-31.0); Mean Corpuscular Volume 84.8 fL (78.0-98.0); Mean Platelet Volume 10.7 fL (7.4-10.4); Monocytes 8 % (0-10); Neutrophil 68 % (42-75); Platelet Count 68 thou/uL (130-400); Platelet Morphology Comment Appears Decreased; Potassium 4.9 mmol/L (3.5-5.1); RBC Distribution Width 15.3 % (11.5-14.5); Reactive Lymphocytes 2 % (0-10); Red Blood Cell (RBC) Count 2.94 mill/uL (4.20-5.40); Sodium 136 mmol/L (136-145); White Blood Cell (WBC) Count 2.8 thou/uL (4.8-10.8)
[2020-08-03] MEDS: predniSONE 20 MG TAB PO SCH (08:43)
[2020-08-03] MEDS: Lantus 1000 UNITS/10 ML VIAL SC SCH ×2 (08:44→20:53)
[2020-08-03] MEDS: Pregabalin 25 MG CAP PO SCH (08:52)
[2020-08-03] MEDS: traMADol HCl 50 MG TAB PO PRN ×2 (08:52→17:04)
[2020-08-03] MEDS: Sodium Chloride 0.9% 1,000 ML IV SCH (11:27)
[2020-08-03] MEDS: HumaLOG 300 UNITS/3 ML VIAL SC PRN ×2 (12:23→18:18)
[2020-08-03 13:36] LABS: Immunoglob - A (Total IgA) Less than 5.00 mg/dL (65-421)
[2020-08-03] MEDS: Acetaminophen 325 MG TAB PO PRN ×2 (16:22→20:55)
[2020-08-03] MEDS ORDERED: Scopolamine 1.5 mg/72 hour Patch TD SCH (18:00)
[2020-08-04] MEDS: Sodium Chloride 0.9% 1,000 ML IV SCH (03:21)
[2020-08-04] MEDS: Acetaminophen 325 MG TAB PO PRN (05:58)
[2020-08-04] MEDS: HumaLOG 300 UNITS/3 ML VIAL SC PRN (06:02)
[2020-08-04] MEDS: Lantus 1000 UNITS/10 ML VIAL SC SCH (08:57)
[2020-08-04] MEDS: predniSONE 20 MG TAB PO SCH (08:57)
[2020-08-04] MEDS: Pregabalin 25 MG CAP PO SCH (08:58)
[2020-08-04] MEDS: Benzonatate 100 MG CAP PO PRN (10:18)
[2020-08-04 13:13] VITALS: BP 132/76; TEMP 97.7
== END 2020-08-04 13:10 | disposition home or self-care (01) | DRG 871 ==
LOC: ERS 16:02 → ERHOLD 16:34 → 2NO 20:44
PROVIDERS: ADMIT Internal Medicine; ATTEND Internal Medicine
DX: A41.9 Sepsis, unspecified organism (principal); J96.01 Acute respiratory failure with hypoxia; J18.9 Pneumonia, unspecified organism; D61.818 Other pancytopenia; J45.41 Moderate persistent asthma with (acute) exacerbation; D80.1 Nonfamilial hypogammaglobulinemia; D83.9 Common variable immunodeficiency, unspecified; E87.2 Acidosis; E11.22 Type 2 diabetes mellitus with diabetic chronic kidney disease; E11.65 Type 2 diabetes mellitus with hyperglycemia; E11.42 Type 2 diabetes mellitus with diabetic polyneuropathy; G43.909 Migraine, unspecified, not intractable, without status migrainosus; Z20.822 Contact with and (suspected) exposure to COVID-19; R59.0 Localized enlarged lymph nodes; N18.32 Chronic kidney disease, stage 3b; Z88.2 Allergy status to sulfonamides; Z88.8 Allergy status to other drugs, medicaments and biological substances; Z88.1 Allergy status to other antibiotic agents; Z79.4 Long term (current) use of insulin; Z79.899 Other long term (current) drug therapy
CPT/HCPCS: 36415; 36416; 80048; 80053; 82553; 84145; 84484; 85025; 85652; 86140; 86769; 87070; 87205; 87449; 87633; 87899; 94640; 99285; J0456; J0696; J1815; J2405; J3490; J7050; J7512; J7611

== ENCOUNTER 2020-11-17 08:24 | Day surgery (SDC) | payer OTHER ==
[2020-11-17] MEDS ORDERED: Sodium Chloride 0.9% 20 ML ONE (08:43)
[2020-11-17] MEDS ORDERED: diphenhydrAMINE 25 MG CAP PO SCH (08:45)
[2020-11-17] MEDS ORDERED: Acetaminophen 500 MG TAB PO SCH (08:45)
[2020-11-17 13:09] VITALS: TEMP 98.1
[2020-11-17 13:43] VITALS: BP 183/108
[2020-11-17] MEDS ORDERED: cloNIDine 0.2 MG TAB PO SCH (14:00)
[2020-11-17 14:17] LABS: #Eosinphils 0.1 thou/uL (0.0-0.7); #Lymphocytes 0.7 thou/uL (1.20-3.40); #Monocytes 0.2 thou/uL (0.11-0.59); #Neutrophils 0.7 thou/uL (1.40-6.50); %Basophils 0.6 % (0.0-1.0); %Eosinophils 4.6 % (0.0-10.0); %Monocytes 14.1 % (0.0-10.0); %Neutrophils 39.7 % (42.0-75.0); Hemoglobin 11.2 g/dL (12.0-16.0); Mean Corpuscular HGB CONC 33.5 g/dL (32.0-36.0); Mean Corpuscular Hemoglobin 28.9 pg (27.0-31.0); Mean Corpuscular Volume 86.4 fL (78.0-98.0); Mean Platelet Volume 11.2 fL (7.4-10.4); Platelet Count 54 thou/uL (130-400); Red Blood Cell (RBC) Count 3.86 mill/uL (4.20-5.40); White Blood Cell (WBC) Count 1.7 thou/uL (4.8-10.8)
[2020-11-17 14:40] LABS: MDiff Complete? YES; Platelet Morphology Comment Appears Decreased; Polychromasia SLIGHT = 2-3 cells (100X) (0-2/hpf); Reflex for Review?? NO
== END 2020-11-17 14:12 | disposition home or self-care (01) ==
LOC: ONC/OP 08:24
PROVIDERS: ATTEND Internal Medicine Medical Oncology
PROC: 30233N1 Transfusion of Nonautologous Red Blood Cells into Peripheral Vein, Percutaneous Approach (ICD-10-PCS; principal; 2020-11-17)
DX: D64.9 Anemia, unspecified (principal); D69.6 Thrombocytopenia, unspecified; Z88.1 Allergy status to other antibiotic agents; Z88.2 Allergy status to sulfonamides; Z88.8 Allergy status to other drugs, medicaments and biological substances
CPT/HCPCS: 36415; 36430; 85025; 86850; 86900; 86901; 86922; P9016; Q0163

== ENCOUNTER 2020-12-13 15:20 | Inpatient (IN) | payer OTHER ==
[2020-12-13 16:41] LABS: #Eosinphils 0.1 thou/uL (0.0-0.7); #Monocytes 0.5 thou/uL (0.11-0.59); #Neutrophils 3.5 thou/uL (1.40-6.50); %Basophils 0.5 % (0.0-1.0); %Eosinophils 1.4 % (0.0-10.0); %Lymphocytes 19.6 % (21.0-51.0); %Monocytes 8.8 % (0.0-10.0); %Neutrophils 69.8 % (42.0-75.0); Hemoglobin 11.2 g/dL (12.0-16.0); Mean Corpuscular HGB CONC 33.7 g/dL (32.0-36.0); Mean Corpuscular Volume 86.1 fL (78.0-98.0); Mean Platelet Volume 10.3 fL (7.4-10.4); Platelet Count 61 thou/uL (130-400); Red Blood Cell (RBC) Count 3.87 mill/uL (4.20-5.40); White Blood Cell (WBC) Count 5.1 thou/uL (4.8-10.8)
[2020-12-13] MEDS ORDERED: Albuterol 200 PUFF (6.7GM INHALER) ONE (17:01)
[2020-12-13 17:10] LABS: ALT (SGPT) 11 U/L (8-55); AST (SGOT) 14 U/L (5-34); Albumin 3.9 g/dL (3.5-5.0); Alkaline Phosphatase 67 U/L (40-110); Anion Gap 14 mmol/L (10-20); BUN (Urea Nitrogen) 25 mg/dL (7.0-18.7); Bilirubin, Total 0.8 mg/dL (0.2-1.2); Calc. Creatinine Clearance 0 mL/min (70-130); Calcium 9.2 mg/dL (7.8-10.44); Carbon Dioxide 22 mmol/L (22-29); Chloride 108 mmol/L (98-107); Globulin 2.6 g/dL (2.4-3.5); Glucose 192 mg/dL (70-105); Potassium 5.2 mmol/L (3.5-5.1); Protein, Total 6.5 g/dL (6.0-8.3); Sodium 139 mmol/L (136-145)
[2020-12-13] MEDS ORDERED: guaiFENesin 200 MG TAB PO PRN (19:43)
[2020-12-13] MEDS ORDERED: Albuterol Sulfate 1.25 MG/3 ML NEB NEB PRN (19:43)
[2020-12-13] MEDS ORDERED: Benzonatate 100 MG CAP PO PRN (19:43)
[2020-12-13] MEDS ORDERED: Dextrose 5% in Water 1,000 ML IV PRN (19:47)
[2020-12-13] MEDS ORDERED: Dextrose 50% Abboject 50 ML SYRINGE SLOW IVP PRN (19:47)
[2020-12-13] MEDS ORDERED: Acetaminophen 650 MG Suppository PR PRN (19:50)
[2020-12-13] MEDS ORDERED: Ondansetron PF 4 MG/2 ML Vial IVP PRN (19:50)
[2020-12-13] MEDS ORDERED: Senokot S 8.6-50 MG TAB PO PRN (19:50)
[2020-12-13] MEDS ORDERED: Ondansetron ODT 4 MG TAB PO PRN (19:50)
[2020-12-13] MEDS ORDERED: Sodium Chloride 0.9% 1,000 ML IV SCH (20:00)
[2020-12-13 21:59] LABS: Bacteria/HPF None Seen HPF (None Seen); Bilirubin Negative (Negative); Blood, Urine 2+ (Negative); Clarity Clear (Clear); Glucose, Urine (Dipstick) Greater than 1000 mg/dL (Negative); Ketone, Urine Negative (Negative); Leukocyte Negative Leu/uL (Negative); Nitrite Negative (Negative); Protein, Urine (Dipstick) 100 mg/dL (Neg-Trace); RBC/HPF 0-3 HPF (0-3); Specific Gravity, Urine 1.014 (1.002-1.036); Squamous Epithelial 0-3 HPF (0-3); Urobilinogen Normal mg/dL (Less than 2); WBC/HPF 0-3 HPF (0-3); pH, Urine 5.5 (5.0-9.0)
[2020-12-13 22:00] LABS: Urine Culture Reflex No No
[2020-12-13] MEDS ORDERED: Azithromycin 500 MG in Sodium Chloride 0.9% 250 ML 250 ML IVPB SCH (22:00)
[2020-12-13] MEDS: Sodium Chloride 0.9% 1,000 ML IV SCH (22:53)
[2020-12-13] MEDS: methylPREDNISolone Sod Succ 40 MG VIAL IVP SCH (23:04)
[2020-12-13] MEDS: Acetaminophen 325 MG TAB PO PRN (23:25)
[2020-12-13] MEDS: Insulin Regular 300 UNITS/3 ML VIAL SC PRN (23:27)
[2020-12-13 23:29] VITALS: BMI 38.6
[2020-12-14] MEDS ORDERED: HumaLOG 300 UNITS/3 ML VIAL SC SCH ×2 (01:15→21:30)
[2020-12-14] MEDS: Albuterol Sulfate 2.5 mg/3 ml Neb NEB SCH ×3 (02:02→07:06)
[2020-12-14 05:36] LABS: Hemoglobin A1c 7.7 % (4.0-6.0)
[2020-12-14 05:38] LABS: Hemoglobin 9.1 g/dL (12.0-16.0); Mean Corpuscular HGB CONC 32.7 g/dL (32.0-36.0); Mean Corpuscular Hemoglobin 28.4 pg (27.0-31.0); Mean Corpuscular Volume 86.9 fL (78.0-98.0); Mean Platelet Volume 10.5 fL (7.4-10.4); Platelet Count 47 thou/uL (130-400); RBC Distribution Width 16.7 % (11.5-14.5); Red Blood Cell (RBC) Count 3.19 mill/uL (4.20-5.40); White Blood Cell (WBC) Count 1.9 thou/uL (4.8-10.8)
[2020-12-14] MEDS: methylPREDNISolone Sod Succ 40 MG VIAL IVP SCH ×3 (05:45→19:49)
[2020-12-14] MEDS: HumaLOG 300 UNITS/3 ML VIAL SC PRN ×3 (05:46→16:58)
[2020-12-14 05:54] LABS: Anion Gap 15 mmol/L (10-20); BUN (Urea Nitrogen) 34 mg/dL (7.0-18.7); Calc. Creatinine Clearance 66 mL/min (70-130); Calcium 8.1 mg/dL (7.8-10.44); Carbon Dioxide 18 mmol/L (22-29); Chloride 107 mmol/L (98-107); Glucose 537 mg/dL (70-105); Potassium 5.1 mmol/L (3.5-5.1); Sodium 135 mmol/L (136-145)
[2020-12-14 06:48] LABS: Anisocytosis SLIGHT = 6-15 cells (100X) (0-5/hpf); Band 3 % (5-11); Lymphocytes 20 % (21-51); MDiff Complete? YES; Monocytes 1 % (0-10); Myelocyte 1 % (0-0); Neutrophil 75 % (42-75); Platelet Morphology Comment Appears Decreased
[2020-12-14] MEDS ORDERED: Albuterol Sulfate 1.25 MG/3 ML NEB NEB PRN (08:56)
[2020-12-14] MEDS: Sodium Chloride 0.9% 1,000 ML IV SCH (08:59)
[2020-12-14] MEDS ORDERED: FLU VACC QS2021-22(6MOS UP)/PF 60 MCG/0.5 ML SYRINGE IM ONE (09:00)
[2020-12-14] MEDS ORDERED: Budesonide 0.5 MG/2 ML NEB ONE (10:55)
[2020-12-14] MEDS: Pregabalin 25 MG CAP PO SCH (11:02)
[2020-12-14] MEDS: Budesonide 0.5 MG/2 ML NEB NEB SCH ×2 (11:03→18:43)
[2020-12-14] MEDS: Arformoterol 15 MCG/2 ML NEB NEB SCH ×2 (11:03→18:49)
[2020-12-14] MEDS: Lantus 1000 UNITS/10 ML VIAL SC SCH (11:06)
[2020-12-14] MEDS: Azithromycin 500 MG in Sodium Chloride 0.9% 250 ML 250 ML IVPB SCH (19:48)
[2020-12-14] MEDS: traMADol HCl 50 MG TAB PO PRN (20:54)
[2020-12-14] MEDS ORDERED: Lantus 1000 UNITS/10 ML VIAL SC SCH (21:00)
[2020-12-14] MEDS: Insulin Regular 300 UNITS/3 ML VIAL SC PRN (21:41)
[2020-12-14 22:04] LABS: Glucose 755 mg/dL (70-105)
[2020-12-15] MEDS: methylPREDNISolone Sod Succ 40 MG VIAL IVP SCH ×4 (00:43→18:20)
[2020-12-15] MEDS ORDERED: HumaLOG 300 UNITS/3 ML VIAL SC SCH (00:45)
[2020-12-15 05:20] LABS: #Lymphocytes 0.5 thou/uL (1.20-3.40); #Monocytes 0.1 thou/uL (0.11-0.59); #Neutrophils 1.9 thou/uL (1.40-6.50); %Eosinophils 0.3 % (0.0-10.0); %Lymphocytes 19.6 % (21.0-51.0); %Neutrophils 78.1 % (42.0-75.0); Hemoglobin 9.1 g/dL (12.0-16.0); Mean Corpuscular HGB CONC 33.4 g/dL (32.0-36.0); Mean Corpuscular Hemoglobin 28.5 pg (27.0-31.0); Mean Corpuscular Volume 85.2 fL (78.0-98.0); Platelet Count 57 thou/uL (130-400); RBC Distribution Width 16.6 % (11.5-14.5); White Blood Cell (WBC) Count 2.5 thou/uL (4.8-10.8)
[2020-12-15 05:28] LABS: Anion Gap 16 mmol/L (10-20); BUN (Urea Nitrogen) 40 mg/dL (7.0-18.7); Calc. Creatinine Clearance 69 mL/min (70-130); Calcium 8.9 mg/dL (7.8-10.44); Carbon Dioxide 19 mmol/L (22-29); Chloride 105 mmol/L (98-107); Glucose 457 mg/dL (70-105); Sodium 135 mmol/L (136-145)
[2020-12-15] MEDS: HumaLOG 300 UNITS/3 ML VIAL SC PRN ×4 (05:55→21:07)
[2020-12-15] MEDS: Budesonide 0.5 MG/2 ML NEB NEB SCH ×2 (08:30→19:37)
[2020-12-15] MEDS: Arformoterol 15 MCG/2 ML NEB NEB SCH ×2 (08:31→19:32)
[2020-12-15] MEDS: Pregabalin 25 MG CAP PO SCH (08:50)
[2020-12-15] MEDS: Lantus 1000 UNITS/10 ML VIAL SC SCH ×2 (08:50→21:06)
[2020-12-15] MEDS ORDERED: Dextrose 50% Abboject 50 ML SYRINGE SLOW IVP PRN (09:26)
[2020-12-15] MEDS ORDERED: Dextrose 5% in Water 1,000 ML IV PRN (09:26)
[2020-12-15] MEDS ORDERED: Lantus 1000 UNITS/10 ML VIAL SC SCH ×3 (13:00→21:00)
[2020-12-15] MEDS: Azithromycin 500 MG in Sodium Chloride 0.9% 250 ML 250 ML IVPB SCH (18:20)
[2020-12-15] MEDS: traMADol HCl 50 MG TAB PO PRN (21:05)
[2020-12-16] MEDS: methylPREDNISolone Sod Succ 40 MG VIAL IVP SCH ×5 (00:05→23:23)
[2020-12-16] MEDS: HumaLOG 300 UNITS/3 ML VIAL SC PRN ×2 (00:28→05:52)
[2020-12-16] MEDS: Arformoterol 15 MCG/2 ML NEB NEB SCH (07:38)
[2020-12-16] MEDS: Budesonide 0.5 MG/2 ML NEB NEB SCH ×2 (07:38→18:52)
[2020-12-16] MEDS: Lantus 1000 UNITS/10 ML VIAL SC SCH ×2 (08:08→22:20)
[2020-12-16] MEDS: Pregabalin 25 MG CAP PO SCH (08:38)
[2020-12-16 09:36] LABS: Hemoglobin 10.1 g/dL (12.0-16.0); Mean Corpuscular HGB CONC 34.4 g/dL (32.0-36.0); Mean Corpuscular Hemoglobin 29.1 pg (27.0-31.0); Mean Corpuscular Volume 84.6 fL (78.0-98.0); Mean Platelet Volume 10.6 fL (7.4-10.4); Platelet Count 58 thou/uL (130-400); RBC Distribution Width 16.5 % (11.5-14.5); Red Blood Cell (RBC) Count 3.48 mill/uL (4.20-5.40); White Blood Cell (WBC) Count 2.3 thou/uL (4.8-10.8)
[2020-12-16 09:52] LABS: Anion Gap 18 mmol/L (10-20); BUN (Urea Nitrogen) 41 mg/dL (7.0-18.7); Calc. Creatinine Clearance 79 mL/min (70-130); Calcium 9.4 mg/dL (7.8-10.44); Carbon Dioxide 21 mmol/L (22-29); Chloride 104 mmol/L (98-107); Glucose 315 mg/dL (70-105); Potassium 4.3 mmol/L (3.5-5.1); Sodium 139 mmol/L (136-145)
[2020-12-16 10:12] LABS: Band 2 % (5-11); Lymphocytes 27 % (21-51); MDiff Complete? YES; Monocytes 4 % (0-10); Neutrophil 67 % (42-75); Platelet Morphology Comment Appears Decreased; Polychromasia SLIGHT = 2-3 cells (100X) (0-2/hpf)
[2020-12-16] MEDS ORDERED: Dextrose 5% in Water 1,000 ML IV PRN (11:23)
[2020-12-16] MEDS ORDERED: Dextrose 50% Abboject 50 ML SYRINGE SLOW IVP PRN (11:23)
[2020-12-16] MEDS ORDERED: HumaLOG 300 UNITS/3 ML VIAL SC SCH ×2 (12:00→17:00)
[2020-12-16] MEDS: guaiFENesin ER 600 MG TAB PO SCH ×2 (13:08→22:20)
[2020-12-16] MEDS: HumaLOG 300 UNITS/3 ML VIAL SC SCH ×3 (15:56→22:21)
[2020-12-16] MEDS: Azithromycin 500 MG in Sodium Chloride 0.9% 250 ML 250 ML IVPB SCH (17:22)
[2020-12-16] MEDS: traMADol HCl 50 MG TAB PO PRN (22:18)
[2020-12-17] MEDS: methylPREDNISolone Sod Succ 40 MG VIAL IVP SCH ×4 (05:50→23:26)
[2020-12-17] MEDS: HumaLOG 300 UNITS/3 ML VIAL SC SCH ×2 (05:50→20:38)
[2020-12-17 05:56] LABS: Band 4 % (5-11); Hemoglobin 9.8 g/dL (12.0-16.0); Lymphocytes 16 % (21-51); MDiff Complete? YES; Mean Corpuscular Hemoglobin 29.1 pg (27.0-31.0); Mean Corpuscular Volume 85.5 fL (78.0-98.0); Mean Platelet Volume 10.2 fL (7.4-10.4); Metamyelocyte 2 % (0-0); Monocytes 8 % (0-10); Neutrophil 70 % (42-75); Nucleated RBC 1 % (0); Platelet Count 58 thou/uL (130-400); Platelet Morphology Comment Appears Decreased; RBC Distribution Width 16.8 % (11.5-14.5); Red Blood Cell (RBC) Count 3.38 mill/uL (4.20-5.40); White Blood Cell (WBC) Count 2.4 thou/uL (4.8-10.8)
[2020-12-17 06:15] LABS: Anion Gap 16 mmol/L (10-20); BUN (Urea Nitrogen) 49 mg/dL (7.0-18.7); Calc. Creatinine Clearance 68 mL/min (70-130); Calcium 9.1 mg/dL (7.8-10.44); Carbon Dioxide 21 mmol/L (22-29); Chloride 101 mmol/L (98-107); Glucose 528 mg/dL (70-105); Potassium 4.7 mmol/L (3.5-5.1); Sodium 133 mmol/L (136-145)
[2020-12-17 07:09] LABS: Troponin I Less than 0.010 ng/mL (< 0.028)
[2020-12-17] MEDS: Budesonide 0.5 MG/2 ML NEB NEB SCH ×2 (07:13→18:52)
[2020-12-17] MEDS: Arformoterol 15 MCG/2 ML NEB NEB SCH ×3 (07:13→18:52)
[2020-12-17] MEDS ORDERED: HumaLOG 300 UNITS/3 ML VIAL SC SCH ×6 (08:00→17:00)
[2020-12-17] MEDS: Sodium Chloride 0.9% 1,000 ML IV SCH ×3 (08:53→23:32)
[2020-12-17] MEDS: Lantus 1000 UNITS/10 ML VIAL SC SCH ×2 (08:54→20:37)
[2020-12-17] MEDS: guaiFENesin ER 600 MG TAB PO SCH ×2 (08:54→20:35)
[2020-12-17] MEDS: Pregabalin 25 MG CAP PO SCH (10:00)
[2020-12-17] MEDS ORDERED: Azithromycin 250 MG TAB PO SCH (15:00)
[2020-12-17] MEDS: Azithromycin 250 MG TAB PO SCH (18:00)
[2020-12-17] MEDS: traMADol HCl 50 MG TAB PO PRN (20:35)
[2020-12-17] MEDS: Acetaminophen 325 MG TAB PO PRN (23:26)
[2020-12-18] MEDS: HumaLOG 300 UNITS/3 ML VIAL SC PRN (01:10)
[2020-12-18] MEDS: methylPREDNISolone Sod Succ 40 MG VIAL IVP SCH ×2 (05:38→11:39)
[2020-12-18 06:22] LABS: #Lymphocytes 0.6 thou/uL (1.20-3.40); #Monocytes 0.2 thou/uL (0.11-0.59); #Neutrophils 2.6 thou/uL (1.40-6.50); %Basophils 0.1 % (0.0-1.0); %Lymphocytes 17.7 % (21.0-51.0); %Monocytes 5.6 % (0.0-10.0); %Neutrophils 75.7 % (42.0-75.0); Hemoglobin 9.8 g/dL (12.0-16.0); Mean Corpuscular HGB CONC 33.8 g/dL (32.0-36.0); Mean Corpuscular Hemoglobin 29.2 pg (27.0-31.0); Mean Corpuscular Volume 86.5 fL (78.0-98.0); Mean Platelet Volume 10.1 fL (7.4-10.4); Platelet Count 61 thou/uL (130-400); RBC Distribution Width 16.8 % (11.5-14.5); Red Blood Cell (RBC) Count 3.34 mill/uL (4.20-5.40); White Blood Cell (WBC) Count 3.4 thou/uL (4.8-10.8)
[2020-12-18] MEDS: Arformoterol 15 MCG/2 ML NEB NEB SCH ×2 (06:22→18:41)
[2020-12-18] MEDS: Budesonide 0.5 MG/2 ML NEB NEB SCH ×2 (06:24→18:41)
[2020-12-18 06:36] LABS: Anion Gap 13 mmol/L (10-20); BUN (Urea Nitrogen) 40 mg/dL (7.0-18.7); Calc. Creatinine Clearance 91 mL/min (70-130); Calcium 8.9 mg/dL (7.8-10.44); Carbon Dioxide 21 mmol/L (22-29); Chloride 106 mmol/L (98-107); Glucose 199 mg/dL (70-105); Potassium 4.9 mmol/L (3.5-5.1); Sodium 135 mmol/L (136-145)
[2020-12-18] MEDS ORDERED: HumaLOG 300 UNITS/3 ML VIAL SC SCH (08:00)
[2020-12-18] MEDS: Pregabalin 25 MG CAP PO SCH (08:08)
[2020-12-18] MEDS: guaiFENesin ER 600 MG TAB PO SCH ×2 (08:09→20:34)
[2020-12-18] MEDS: Lantus 1000 UNITS/10 ML VIAL SC SCH ×2 (08:11→20:34)
[2020-12-18] MEDS: HumaLOG 300 UNITS/3 ML VIAL SC SCH ×4 (08:12→20:35)
[2020-12-18] MEDS ORDERED: Cepastat Lozenges 1 LOZ PO PRN (13:09)
[2020-12-18] MEDS: Sodium Chloride 0.9% 1,000 ML IV SCH (14:29)
[2020-12-18] MEDS: Azithromycin 250 MG TAB PO SCH (17:22)
[2020-12-18] MEDS ORDERED: predniSONE 20 MG TAB PO SCH (21:00)
[2020-12-18] MEDS ORDERED: Melatonin 3 MG TAB PO SCH (21:00)
[2020-12-19] MEDS: diphenhydrAMINE 25 MG CAP PO PRN ×2 (02:44→20:05)
[2020-12-19] MEDS: Arformoterol 15 MCG/2 ML NEB NEB SCH ×2 (06:37→18:34)
[2020-12-19] MEDS: Budesonide 0.5 MG/2 ML NEB NEB SCH ×2 (06:38→18:34)
[2020-12-19] MEDS: Lantus 1000 UNITS/10 ML VIAL SC SCH (07:31)
[2020-12-19] MEDS: Pregabalin 25 MG CAP PO SCH (07:32)
[2020-12-19] MEDS: HumaLOG 300 UNITS/3 ML VIAL SC SCH ×3 (07:32→16:41)
[2020-12-19] MEDS: guaiFENesin ER 600 MG TAB PO SCH ×2 (07:34→20:05)
[2020-12-19 07:51] LABS: Anion Gap 15 mmol/L (10-20); BUN (Urea Nitrogen) 46 mg/dL (7.0-18.7); Calc. Creatinine Clearance 93 mL/min (70-130); Calcium 8.7 mg/dL (7.8-10.44); Carbon Dioxide 21 mmol/L (22-29); Chloride 106 mmol/L (98-107); Glucose 131 mg/dL (70-105); Potassium 5.1 mmol/L (3.5-5.1); Sodium 137 mmol/L (136-145)
[2020-12-19] MEDS ORDERED: predniSONE 20 MG TAB PO SCH (08:00)
[2020-12-19] MEDS ORDERED: Lantus 1000 UNITS/10 ML VIAL SC SCH (09:00)
[2020-12-19 11:12] LABS: Band 9 % (5-11); Eosinophils 1 % (0-10); Hemoglobin 10.1 g/dL (12.0-16.0); Lymphocytes 25 % (21-51); MDiff Complete? YES; Mean Corpuscular HGB CONC 33.3 g/dL (32.0-36.0); Mean Corpuscular Hemoglobin 28.9 pg (27.0-31.0); Mean Corpuscular Volume 86.6 fL (78.0-98.0); Mean Platelet Volume 10.4 fL (7.4-10.4); Metamyelocyte 2 % (0-0); Monocytes 5 % (0-10); Neutrophil 58 % (42-75); Platelet Count 61 thou/uL (130-400); Platelet Morphology Comment Appears Decreased; Polychromasia SLIGHT = 2-3 cells (100X) (0-2/hpf); Red Blood Cell (RBC) Count 3.49 mill/uL (4.20-5.40); White Blood Cell (WBC) Count 3.6 thou/uL (4.8-10.8)
[2020-12-19] MEDS ORDERED: Hydrocortisone Acetate 25 MG Suppository PR PRN (13:30)
[2020-12-19] MEDS: Azithromycin 250 MG TAB PO SCH (17:33)
[2020-12-19] MEDS ORDERED: Dexamethasone 4 MG TAB PO SCH (18:15)
[2020-12-19] MEDS: HumaLOG 300 UNITS/3 ML VIAL SC PRN (20:06)
[2020-12-20] MEDS: HumaLOG 300 UNITS/3 ML VIAL SC PRN ×2 (01:20→20:41)
[2020-12-20] MEDS: traMADol HCl 50 MG TAB PO PRN ×2 (01:24→20:40)
[2020-12-20] MEDS: HumaLOG 300 UNITS/3 ML VIAL SC SCH ×4 (05:35→16:50)
[2020-12-20] MEDS: diphenhydrAMINE 25 MG CAP PO PRN (05:40)
[2020-12-20] MEDS: Arformoterol 15 MCG/2 ML NEB NEB SCH ×2 (06:42→18:28)
[2020-12-20] MEDS: Budesonide 0.5 MG/2 ML NEB NEB SCH ×2 (06:44→18:28)
[2020-12-20] MEDS: guaiFENesin ER 600 MG TAB PO SCH ×2 (08:14→20:39)
[2020-12-20] MEDS: Dexamethasone 4 MG TAB PO SCH ×2 (08:14→16:49)
[2020-12-20] MEDS: Pregabalin 25 MG CAP PO SCH (08:14)
[2020-12-20] MEDS: Lantus 1000 UNITS/10 ML VIAL SC SCH ×2 (08:15→20:39)
[2020-12-20] MEDS ORDERED: hydrALAZINE 25 MG TAB PO PRN (09:28)
[2020-12-20] MEDS ORDERED: HumaLOG 300 UNITS/3 ML VIAL SC SCH (13:00)
[2020-12-20] MEDS: Azithromycin 250 MG TAB PO SCH (17:41)
[2020-12-20] MEDS: Acetaminophen 325 MG TAB PO PRN (22:33)
[2020-12-21 04:12] VITALS: TEMP 98
[2020-12-21] MEDS: Arformoterol 15 MCG/2 ML NEB NEB SCH (07:03)
[2020-12-21] MEDS: Budesonide 0.5 MG/2 ML NEB NEB SCH (07:03)
[2020-12-21 07:51] VITALS: BP 138/86
[2020-12-21] MEDS ORDERED: Dexamethasone 4 MG TAB PO SCH ×2 (08:45→17:00)
[2020-12-21] MEDS: HumaLOG 300 UNITS/3 ML VIAL SC SCH ×2 (09:05→12:17)
[2020-12-21] MEDS: Pregabalin 25 MG CAP PO SCH (09:05)
[2020-12-21] MEDS: guaiFENesin ER 600 MG TAB PO SCH (09:05)
[2020-12-21] MEDS: Lantus 1000 UNITS/10 ML VIAL SC SCH (09:06)
[2020-12-21] MEDS: Dexamethasone 4 MG TAB PO SCH (11:08)
== END 2020-12-21 13:57 | disposition home or self-care (01) | DRG 189 ==
LOC: ERS 15:20 → ERHOLD 18:40 → 2SE 22:28 → 3SE 12-15 17:33 → T4-B 12-17 12:28
PROVIDERS: ADMIT Internal Medicine; ATTEND Internal Medicine
DX: J96.01 Acute respiratory failure with hypoxia (principal); D61.818 Other pancytopenia; J45.41 Moderate persistent asthma with (acute) exacerbation; D83.9 Common variable immunodeficiency, unspecified; R62.50 Unspecified lack of expected normal physiological development in childhood; N18.30 Chronic kidney disease, stage 3 unspecified; E11.22 Type 2 diabetes mellitus with diabetic chronic kidney disease; E11.42 Type 2 diabetes mellitus with diabetic polyneuropathy; G89.29 Other chronic pain; M54.9 Dorsalgia, unspecified; E11.65 Type 2 diabetes mellitus with hyperglycemia; Z88.1 Allergy status to other antibiotic agents; Z88.2 Allergy status to sulfonamides; Z88.8 Allergy status to other drugs, medicaments and biological substances; Z79.899 Other long term (current) drug therapy; Z79.4 Long term (current) use of insulin; Z79.52 Long term (current) use of systemic steroids
CPT/HCPCS: 36415; 36416; 71045; 80048; 80053; 81001; 83036; 83605; 84484; 85025; 87040; 90471; 90686; 93005; 93010; 94640; 96374; 96375; G0008; J0456; J1815; J2920; J7050; J7512; J7611; J7620; J7626; J8540; Q0162

== ENCOUNTER 2021-05-14 12:36 | Inpatient (IN) | payer OTHER ==
[2021-05-14 13:41] LABS: #Basophils 0.1 thou/uL (0.0-0.2); #Eosinphils 0.1 thou/uL (0.0-0.7); #Monocytes 0.4 thou/uL (0.11-0.59); #Neutrophils 1.7 thou/uL (1.40-6.50); %Basophils 1.8 % (0.0-1.0); %Eosinophils 3.2 % (0.0-10.0); %Lymphocytes 31.3 % (21.0-51.0); %Monocytes 11.4 % (0.0-10.0); %Neutrophils 52.2 % (42.0-75.0); Hemoglobin 11.4 g/dL (12.0-16.0); Mean Corpuscular HGB CONC 34.9 g/dL (32.0-36.0); Mean Corpuscular Hemoglobin 29.5 pg (27.0-31.0); Mean Corpuscular Volume 84.5 fL (78.0-98.0); Mean Platelet Volume 10.5 fL (7.4-10.4); Platelet Count 58 thou/uL (130-400); RBC Distribution Width 14.2 % (11.5-14.5); Red Blood Cell (RBC) Count 3.86 mill/uL (4.20-5.40); White Blood Cell (WBC) Count 3.2 thou/uL (4.8-10.8)
[2021-05-14 13:47] LABS: Actual Bicarbonate (HCO3v) 21 mEq/L (22-28); Analyzer IN Cardio ER; Base Excess -4.2 mEq/L (-2.0 to +3.0); Chloride (VBG) 100 mmol/L (98-106); Hemoglobin (Hb) 11.1 g/dL (11.7-15.5); Potassium (VBG) 5.27 mmol/L (3.70-5.30); Sodium 130.4 mmol/L (133-146); pH (venous) 7.36 (7.32-7.43)
[2021-05-14 13:52] LABS: ALT (SGPT) 13 U/L (8-55); AST (SGOT) 13 U/L (5-34); Albumin 3.8 g/dL (3.5-5.0); Alkaline Phosphatase 78 U/L (40-110); Anion Gap 14 mmol/L (10-20); BUN (Urea Nitrogen) 23 mg/dL (7.0-18.7); Bilirubin, Total 0.7 mg/dL (0.2-1.2); Calc. Creatinine Clearance 0 mL/min (70-130); Calcium 9.2 mg/dL (7.8-10.44); Carbon Dioxide 22 mmol/L (22-29); Chloride 101 mmol/L (98-107); Globulin 2.7 g/dL (2.4-3.5); Glucose 540 mg/dL (70-105); Potassium 5.4 mmol/L (3.5-5.1); Protein, Total 6.5 g/dL (6.0-8.3); Sodium 132 mmol/L (136-145)
[2021-05-14] MEDS ORDERED: cefTRIAXone\\ROCEPHIN 2 GM VIAL ONE (14:09)
[2021-05-14] MEDS ORDERED: Azithromycin 500 MG VIAL ONE (14:09)
[2021-05-14] MEDS ORDERED: Magnesium 2 GM/50 ML BAG (IN WATER) ONE (14:13)
[2021-05-14] MEDS ORDERED: Albuterol Sulfate 2.5 mg/0.5 ml Neb ONE ×2 (14:13)
[2021-05-14] MEDS ORDERED: Sodium Chloride For Inhalation 0.9% 3 ML NEB ONE (14:13)
[2021-05-14 14:18] LABS: Bacteria/HPF 3+ HPF (None Seen); Bilirubin Negative (Negative); Blood, Urine 1+ (Negative); Clarity Clear (Clear); Glucose, Urine (Dipstick) Greater than 1000 mg/dL (Negative); Ketone, Urine Negative (Negative); Leukocyte Negative Leu/uL (Negative); Nitrite Negative (Negative); Protein, Urine (Dipstick) 70 mg/dL (Neg-Trace); RBC/HPF 0-3 HPF (0-3); Specific Gravity, Urine 1.016 (1.002-1.036); Urobilinogen Normal mg/dL (Less than 2); WBC/HPF 0-3 HPF (0-3)
[2021-05-14] MEDS ORDERED: Azithromycin 250 MG TAB ONE (15:08)
[2021-05-14] MEDS ORDERED: Dexamethasone 10 MG/ML VIAL ONE (15:12)
[2021-05-14] MEDS ORDERED: Insulin Regular 300 UNITS/3 ML VIAL SC PRN (15:35)
[2021-05-14] MEDS ORDERED: Dextrose 5% in Water 1,000 ML IV PRN (15:35)
[2021-05-14] MEDS ORDERED: Dextrose 50% Abboject 50 ML SYRINGE SLOW IVP PRN (15:35)
[2021-05-14] MEDS ORDERED: Calcium Carbonate 500 MG ChewTAB PO PRN (15:36)
[2021-05-14] MEDS ORDERED: NPH, Human Insulin Isophane 300 UNIT/3 ML VIAL SC SCH ×2 (15:45→21:00)
[2021-05-14 15:54] LABS: SARS-CoV-2 NAA Rapid Test Not Detected (NotDetected)
[2021-05-14 16:04] LABS: Pregnancy Test - Urine (BHCG) Negative (Negative); Pregu Control Background? CLEAR/WHITE (CLR/WHITE); Pregu Control Bar Appear? YES (CONTROL BAR); Specific Gravity 1.016 (1.002-1.036)
[2021-05-14 16:28] LABS: Troponin I Less than 0.010 ng/mL (< 0.028)
[2021-05-14 17:21] VITALS: BMI 38.8
[2021-05-14] MEDS: Insulin Regular 300 UNITS/3 ML VIAL SC PRN ×2 (17:29→20:56)
[2021-05-14] MEDS: Budesonide 0.5 MG/2 ML NEB NEB SCH (18:33)
[2021-05-14 20:01] LABS: Troponin I Less than 0.010 ng/mL (< 0.028)
[2021-05-14] MEDS ORDERED: Famotidine 20 MG TAB PO SCH (21:00)
[2021-05-14 23:30] LABS: Glucose 728 mg/dL (70-105)
[2021-05-15] MEDS ORDERED: HUMULIN R 100 UNITS in Sodium Chloride 0.9% 100 ML IVPB SCH ×3 (00:30→20:00)
[2021-05-15] MEDS ORDERED: NS 0.9% w/ 20 MEQ KCL 1,000 ML IV PRN ×2 (01:40)
[2021-05-15] MEDS ORDERED: Dextrose 5 %-0.45 % NaCl 1,000 ML IV PRN (01:40)
[2021-05-15] MEDS ORDERED: D5 1/2 NS w/20 mEq KCL 1,000 ML IV PRN (01:40)
[2021-05-15] MEDS ORDERED: Sodium Chloride 0.9% 1,000 ML IV PRN ×3 (01:40)
[2021-05-15] MEDS ORDERED: Electrolyte Replacement Protocol 1 EACH IVPB PRN (01:40)
[2021-05-15 02:36] LABS: Anion Gap 13 mmol/L (10-20); BUN (Urea Nitrogen) 34 mg/dL (7.0-18.7); Calc. Creatinine Clearance 54 mL/min (70-130); Calcium 8.9 mg/dL (7.8-10.44); Carbon Dioxide 19 mmol/L (22-29); Chloride 100 mmol/L (98-107); Magnesium 1.9 mg/dL (1.6-2.6); Potassium 5.4 mmol/L (3.5-5.1); Sodium 127 mmol/L (136-145)
[2021-05-15 02:55] LABS: Glucose 705 mg/dL (70-105)
[2021-05-15 04:29] LABS: Anion Gap 16 mmol/L (10-20); BUN (Urea Nitrogen) 32 mg/dL (7.0-18.7); Calc. Creatinine Clearance 58 mL/min (70-130); Calcium 8.5 mg/dL (7.8-10.44); Carbon Dioxide 16 mmol/L (22-29); Chloride 103 mmol/L (98-107); Glucose 570 mg/dL (70-105); Potassium 5.9 mmol/L (3.5-5.1); Sodium 129 mmol/L (136-145)
[2021-05-15 06:05] LABS: Anion Gap 13 mmol/L (10-20); BUN (Urea Nitrogen) 30 mg/dL (7.0-18.7); Calc. Creatinine Clearance 68 mL/min (70-130); Calcium 8.7 mg/dL (7.8-10.44); Carbon Dioxide 19 mmol/L (22-29); Chloride 106 mmol/L (98-107); Glucose 426 mg/dL (70-105); Potassium 4.9 mmol/L (3.5-5.1); Sodium 133 mmol/L (136-145)
[2021-05-15] MEDS: Budesonide 0.5 MG/2 ML NEB NEB SCH ×2 (06:45→22:41)
[2021-05-15] MEDS: Dexamethasone 1 MG TAB PO SCH ×2 (07:39→17:57)
[2021-05-15] MEDS ORDERED: HumuLIN 70/30 (300 UNITS/3 ML VIAL) SC SCH ×3 (09:00→21:00)
[2021-05-15 10:55] LABS: #Lymphocytes 0.5 thou/uL (1.20-3.40); #Monocytes 0.1 thou/uL (0.11-0.59); %Basophils 0.4 % (0.0-1.0); %Eosinophils 0.7 % (0.0-10.0); %Lymphocytes 19.1 % (21.0-51.0); %Monocytes 4.3 % (0.0-10.0); %Neutrophils 75.5 % (42.0-75.0); Hemoglobin 9.4 g/dL (12.0-16.0); Mean Corpuscular HGB CONC 33.8 g/dL (32.0-36.0); Mean Corpuscular Hemoglobin 28.3 pg (27.0-31.0); Mean Corpuscular Volume 83.8 fL (78.0-98.0); Mean Platelet Volume 10.6 fL (7.4-10.4); Platelet Count 48 thou/uL (130-400); RBC Distribution Width 14.1 % (11.5-14.5); Red Blood Cell (RBC) Count 3.32 mill/uL (4.20-5.40); White Blood Cell (WBC) Count 2.6 thou/uL (4.8-10.8)
[2021-05-15 11:10] LABS: Phosphorus 2.1 mg/dL (2.3-4.7)
[2021-05-15 11:11] LABS: Anion Gap 15 mmol/L (10-20); BUN (Urea Nitrogen) 28 mg/dL (7.0-18.7); Calc. Creatinine Clearance 73 mL/min (70-130); Calcium 8.7 mg/dL (7.8-10.44); Carbon Dioxide 17 mmol/L (22-29); Chloride 110 mmol/L (98-107); Glucose 259 mg/dL (70-105); Magnesium 1.7 mg/dL (1.6-2.6); Potassium 4.6 mmol/L (3.5-5.1); Sodium 137 mmol/L (136-145)
[2021-05-15] MEDS ORDERED: Magnesium 2 GM/50 ML 2 GM in Premix Bag 1 BAG IVPB SCH (13:00)
[2021-05-15 13:07] LABS: Legionella Urinary Ag Negative (Negative)
[2021-05-15] MEDS ORDERED: OCTAGAM 10% (10 GM/100 ML VIAL) IVPB SCH (13:15)
[2021-05-15] MEDS ORDERED: ADMIXTURE FEE IVPB SCH (14:00)
[2021-05-15] MEDS ORDERED: IMMUNE GLOBULIN IVPB SCH (14:00)
[2021-05-15] MEDS: cefTRIAXone\\ROCEPHIN 1 GM in Sodium Chloride 0.9% 100 ML IVPB SCH (14:13)
[2021-05-15] MEDS: Azithromycin 250 MG TAB PO SCH (14:13)
[2021-05-15] MEDS ORDERED: Acetaminophen 500 MG TAB PO SCH (14:45)
[2021-05-15] MEDS ORDERED: Famotidine 20 MG TAB PO SCH (14:45)
[2021-05-15] MEDS ORDERED: diphenhydrAMINE 25 MG CAP PO SCH (14:45)
[2021-05-15] MEDS ORDERED: NPH, Human Insulin Isophane 300 UNIT/3 ML VIAL SC SCH ×2 (16:30→16:59)
[2021-05-15] MEDS ORDERED: Dextrose 5% in Water 1,000 ML IV PRN (16:57)
[2021-05-15] MEDS ORDERED: Dextrose 50% Abboject 50 ML SYRINGE SLOW IVP PRN (16:57)
[2021-05-15] MEDS ORDERED: Insulin Regular 300 UNITS/3 ML VIAL SC PRN ×3 (16:57→18:28)
[2021-05-15] MEDS ORDERED: Insulin Regular 300 UNITS/3 ML VIAL IVP SCH (18:15)
[2021-05-15] MEDS ORDERED: Lactated Ringer's 500 ML IV SCH ×2 (19:30→19:45)
[2021-05-15 19:50] LABS: Anion Gap 15 mmol/L (10-20); BUN (Urea Nitrogen) 33 mg/dL (7.0-18.7); Calc. Creatinine Clearance 59 mL/min (70-130); Carbon Dioxide 17 mmol/L (22-29); Chloride 104 mmol/L (98-107); Glucose 473 mg/dL (70-105); Potassium 4.6 mmol/L (3.5-5.1); Sodium 131 mmol/L (136-145)
[2021-05-15] MEDS: 1/2 NS w/KCL 20 mEq 1,000 ML IV SCH (20:50)
[2021-05-15] MEDS ORDERED: Lantus 1000 UNITS/10 ML VIAL SC SCH (21:00)
[2021-05-15 23:28] LABS: Anion Gap 13 mmol/L (10-20); BUN (Urea Nitrogen) 31 mg/dL (7.0-18.7); Calc. Creatinine Clearance 70 mL/min (70-130); Calcium 8.8 mg/dL (7.8-10.44); Carbon Dioxide 18 mmol/L (22-29); Chloride 106 mmol/L (98-107); Glucose 288 mg/dL (70-105); Potassium 5.3 mmol/L (3.5-5.1); Sodium 132 mmol/L (136-145)
[2021-05-16 03:55] LABS: Hemoglobin 9.3 g/dL (12.0-16.0); Mean Corpuscular HGB CONC 33.9 g/dL (32.0-36.0); Mean Corpuscular Hemoglobin 28.5 pg (27.0-31.0); Mean Corpuscular Volume 84.2 fL (78.0-98.0); Mean Platelet Volume 10.1 fL (7.4-10.4); Platelet Count 51 thou/uL (130-400); RBC Distribution Width 14.5 % (11.5-14.5); Red Blood Cell (RBC) Count 3.24 mill/uL (4.20-5.40); White Blood Cell (WBC) Count 3.4 thou/uL (4.8-10.8)
[2021-05-16 04:01] LABS: ALT (SGPT) 10 U/L (8-55); AST (SGOT) 9 U/L (5-34); Albumin 3.3 g/dL (3.5-5.0); Alkaline Phosphatase 66 U/L (40-110); Anion Gap 12 mmol/L (10-20); BUN (Urea Nitrogen) 33 mg/dL (7.0-18.7); Bilirubin, Total 0.2 mg/dL (0.2-1.2); Calc. Creatinine Clearance 73 mL/min (70-130); Calcium 8.9 mg/dL (7.8-10.44); Carbon Dioxide 18 mmol/L (22-29); Chloride 111 mmol/L (98-107); Globulin 3.5 g/dL (2.4-3.5); Glucose 157 mg/dL (70-105); Potassium 5.2 mmol/L (3.5-5.1); Protein, Total 6.8 g/dL (6.0-8.3); Sodium 136 mmol/L (136-145)
[2021-05-16 04:12] LABS: #Lymphocytes 0.7 thou/uL (1.20-3.40); #Monocytes 0.3 thou/uL (0.11-0.59); #Neutrophils 2.4 thou/uL (1.40-6.50); %Basophils 0.3 % (0.0-1.0); %Eosinophils 0.4 % (0.0-10.0); %Lymphocytes 19.8 % (21.0-51.0); %Monocytes 8.7 % (0.0-10.0); %Neutrophils 70.8 % (42.0-75.0); Platelet Morphology Comment Appears Decreased
[2021-05-16] MEDS: 1/2 NS w/KCL 20 mEq 1,000 ML IV SCH (04:37)
[2021-05-16] MEDS ORDERED: Lantus 1000 UNITS/10 ML VIAL SC SCH ×3 (06:00→21:00)
[2021-05-16] MEDS: Budesonide 0.5 MG/2 ML NEB NEB SCH ×2 (07:08→19:04)
[2021-05-16] MEDS: Dexamethasone 1 MG TAB PO SCH (07:39)
[2021-05-16] MEDS: HumaLOG 300 UNITS/3 ML VIAL SC PRN ×3 (11:52→17:26)
[2021-05-16] MEDS ORDERED: Labetalol HCl 100 MG/20 ML VIAL SLOW IVP PRN (12:39)
[2021-05-16] MEDS ORDERED: hydrALAZINE 20 MG/ML VIAL SLOW IVP PRN (12:39)
[2021-05-16] MEDS: Acetaminophen 325 MG TAB PO PRN ×2 (13:29→21:22)
[2021-05-16] MEDS: cefTRIAXone\\ROCEPHIN 1 GM in Sodium Chloride 0.9% 100 ML IVPB SCH (13:31)
[2021-05-16] MEDS: Azithromycin 250 MG TAB PO SCH (14:33)
[2021-05-16] MEDS: HumuLIN 70/30 (300 UNITS/3 ML VIAL) SC SCH (17:11)
[2021-05-16] MEDS: Lactated Ringer's 1,000 ML IV SCH (17:23)
[2021-05-16] MEDS ORDERED: Lactated Ringer's 500 ML IV SCH (17:30)
[2021-05-16] MEDS ORDERED: HumaLOG 300 UNITS/3 ML VIAL SC SCH (17:30)
[2021-05-16 18:44] LABS: Anion Gap 14 mmol/L (10-20); BUN (Urea Nitrogen) 33 mg/dL (7.0-18.7); Calc. Creatinine Clearance 65 mL/min (70-130); Calcium 8.8 mg/dL (7.8-10.44); Carbon Dioxide 17 mmol/L (22-29); Chloride 107 mmol/L (98-107); Glucose 415 mg/dL (70-105); Potassium 5.2 mmol/L (3.5-5.1); Sodium 133 mmol/L (136-145)
[2021-05-16] MEDS: Lantus 1000 UNITS/10 ML VIAL SC SCH (21:12)
[2021-05-17] MEDS: Lactated Ringer's 1,000 ML IV SCH ×4 (01:39→16:03)
[2021-05-17] MEDS: Budesonide 0.5 MG/2 ML NEB NEB SCH ×2 (06:40→19:26)
[2021-05-17 06:45] LABS: Hemoglobin 10.3 g/dL (12.0-16.0); Mean Corpuscular HGB CONC 33.5 g/dL (32.0-36.0); Mean Corpuscular Hemoglobin 29.1 pg (27.0-31.0); Mean Corpuscular Volume 86.6 fL (78.0-98.0); Mean Platelet Volume 9.6 fL (7.4-10.4); Platelet Count 54 thou/uL (130-400); RBC Distribution Width 14.6 % (11.5-14.5); Red Blood Cell (RBC) Count 3.53 mill/uL (4.20-5.40); White Blood Cell (WBC) Count 2.9 thou/uL (4.8-10.8)
[2021-05-17 06:55] LABS: ALT (SGPT) 12 U/L (8-55); AST (SGOT) 12 U/L (5-34); Albumin 3.8 g/dL (3.5-5.0); Alkaline Phosphatase 65 U/L (40-110); Anion Gap 12 mmol/L (10-20); BUN (Urea Nitrogen) 31 mg/dL (7.0-18.7); Bilirubin, Total 0.3 mg/dL (0.2-1.2); Calc. Creatinine Clearance 77 mL/min (70-130); Calcium 9.7 mg/dL (7.8-10.44); Carbon Dioxide 23 mmol/L (22-29); Chloride 107 mmol/L (98-107); Globulin 3.6 g/dL (2.4-3.5); Glucose 109 mg/dL (70-105); Potassium 4.1 mmol/L (3.5-5.1); Protein, Total 7.4 g/dL (6.0-8.3); Sodium 138 mmol/L (136-145)
[2021-05-17 07:59] LABS: Band 1 % (5-11); Lymphocytes 37 % (21-51); MDiff Complete? YES; Monocytes 6 % (0-10); Neutrophil 55 % (42-75); Platelet Morphology Comment Appears Decreased; Polychromasia SLIGHT = 2-3 cells (100X) (0-2/hpf)
[2021-05-17] MEDS: HumuLIN 70/30 (300 UNITS/3 ML VIAL) SC SCH ×3 (08:57→17:13)
[2021-05-17] MEDS: HumaLOG 300 UNITS/3 ML VIAL SC SCH ×3 (08:57→17:12)
[2021-05-17] MEDS: Lantus 1000 UNITS/10 ML VIAL SC SCH ×2 (08:57→20:53)
[2021-05-17] MEDS: Dexamethasone 1 MG TAB PO SCH (09:01)
[2021-05-17] MEDS ORDERED: Dextrose 50% Abboject 50 ML SYRINGE ONE (10:48)
[2021-05-17] MEDS ORDERED: Iothalamate Meglumine 60% 50 ML VIAL FS ONE (12:29)
[2021-05-17] MEDS ORDERED: Dexmedetomidine 200 MCG/2 ML VIAL ONE (12:31)
[2021-05-17] MEDS ORDERED: Fentanyl 100 MCG/2 ML VIAL ONE (12:31)
[2021-05-17 12:39] LABS: Mycoplasma pneumoniae IgG AB 172 U/mL (0-99); Mycoplasma pneumoniae IgM AB Less than 770 U/mL (0-769)
[2021-05-17] MEDS ORDERED: Midazolam HCl 2 mg/2 ml Vial ONE (12:59)
[2021-05-17] MEDS ORDERED: Sodium Chloride 0.9% 100 ML ONE (13:27)
[2021-05-17] MEDS ORDERED: cefTRIAXone\\ROCEPHIN 2 GM VIAL ONE (13:27)
[2021-05-17] MEDS ORDERED: cefTRIAXone\\ROCEPHIN 1 GM VIAL ONE (13:27)
[2021-05-17] MEDS: cefTRIAXone\\ROCEPHIN 1 GM in Sodium Chloride 0.9% 100 ML IVPB SCH (15:16)
[2021-05-17] MEDS: Azithromycin 250 MG TAB PO SCH (15:17)
[2021-05-17] MEDS: HumaLOG 300 UNITS/3 ML VIAL SC PRN (17:13)
[2021-05-18] MEDS: Lactated Ringer's 1,000 ML IV SCH ×4 (00:15→09:27)
[2021-05-18 06:23] LABS: Hemoglobin A1c 9.4 % (4.0-6.0)
[2021-05-18 06:35] LABS: Hemoglobin 9.2 g/dL (12.0-16.0); Mean Corpuscular HGB CONC 32.5 g/dL (32.0-36.0); Mean Corpuscular Hemoglobin 28.3 pg (27.0-31.0); Mean Corpuscular Volume 87.3 fL (78.0-98.0); Mean Platelet Volume 10.1 fL (7.4-10.4); Platelet Count 44 thou/uL (130-400); RBC Distribution Width 14.5 % (11.5-14.5); Red Blood Cell (RBC) Count 3.25 mill/uL (4.20-5.40); White Blood Cell (WBC) Count 1.8 thou/uL (4.8-10.8)
[2021-05-18 06:38] LABS: ALT (SGPT) 12 U/L (8-55); AST (SGOT) 14 U/L (5-34); Albumin 3.2 g/dL (3.5-5.0); Alkaline Phosphatase 62 U/L (40-110); Anion Gap 9 mmol/L (10-20); BUN (Urea Nitrogen) 33 mg/dL (7.0-18.7); Bilirubin, Total 0.2 mg/dL (0.2-1.2); Calc. Creatinine Clearance 78 mL/min (70-130); Calcium 9.2 mg/dL (7.8-10.44); Carbon Dioxide 27 mmol/L (22-29); Chloride 105 mmol/L (98-107); Globulin 2.9 g/dL (2.4-3.5); Glucose 247 mg/dL (70-105); Potassium 4.2 mmol/L (3.5-5.1); Protein, Total 6.1 g/dL (6.0-8.3); Sodium 137 mmol/L (136-145)
[2021-05-18] MEDS: Budesonide 0.5 MG/2 ML NEB NEB SCH (07:11)
[2021-05-18 07:58] VITALS: BP 156/91; TEMP 97.4
[2021-05-18] MEDS: HumuLIN 70/30 (300 UNITS/3 ML VIAL) SC SCH ×2 (08:05→12:11)
[2021-05-18] MEDS: HumaLOG 300 UNITS/3 ML VIAL SC SCH ×2 (08:06→12:10)
[2021-05-18] MEDS: Lantus 1000 UNITS/10 ML VIAL SC SCH (08:06)
[2021-05-18 08:32] LABS: Band 3 % (5-11); Lymphocytes 38 % (21-51); MDiff Complete? YES; Monocytes 15 % (0-10); Neutrophil 44 % (42-75); Platelet Morphology Comment Appears Decreased; Polychromasia SLIGHT = 2-3 cells (100X) (0-2/hpf)
[2021-05-18] MEDS: Dexamethasone 1 MG TAB PO SCH (09:27)
[2021-05-18] MEDS: Acetaminophen 325 MG TAB PO PRN (11:00)
[2021-05-18] MEDS: HumaLOG 300 UNITS/3 ML VIAL SC PRN (12:10)
== END 2021-05-18 12:24 | disposition home or self-care (01) | DRG 189 ==
LOC: ERS 12:36 → T4-B 15:07 → IMCU/EMU 05-15 00:36 → OBSVTOIN 05-15 09:15 → MSONC 05-15 13:33 → IMCU/EMU 05-15 20:06 → T4-A 05-16 12:34
PROVIDERS: ADMIT Internal Medicine; ATTEND Hospitalist
DX: J96.01 Acute respiratory failure with hypoxia (principal); J45.901 Unspecified asthma with (acute) exacerbation; D61.818 Other pancytopenia; E87.1 Hypo-osmolality and hyponatremia; D83.9 Common variable immunodeficiency, unspecified; Q62.11 Congenital occlusion of ureteropelvic junction; N13.30 Unspecified hydronephrosis; Z20.822 Contact with and (suspected) exposure to COVID-19; E11.65 Type 2 diabetes mellitus with hyperglycemia; E11.22 Type 2 diabetes mellitus with diabetic chronic kidney disease; N18.30 Chronic kidney disease, stage 3 unspecified; I12.9 Hypertensive chronic kidney disease with stage 1 through stage 4 chronic kidney disease, or unspecified chronic kidney disease; D50.9 Iron deficiency anemia, unspecified; F79 Unspecified intellectual disabilities; K76.0 Fatty (change of) liver, not elsewhere classified; E66.01 Morbid (severe) obesity due to excess calories; K64.9 Unspecified hemorrhoids; E11.42 Type 2 diabetes mellitus with diabetic polyneuropathy; E78.5 Hyperlipidemia, unspecified; E87.5 Hyperkalemia; Z88.1 Allergy status to other antibiotic agents; Z88.8 Allergy status to other drugs, medicaments and biological substances; Z88.2 Allergy status to sulfonamides; Z79.899 Other long term (current) drug therapy; Z79.4 Long term (current) use of insulin; Z68.39 Body mass index [BMI] 39.0-39.9, adult
CPT/HCPCS: 0240U; 36415; 36416; 71045; 74176; 80048; 80053; 81003; 81015; 81025; 82010; 82805; 83036; 83735; 83880; 84100; 84145; 84484; 85025; 85379; 87040; 87149; 87633; 87899; 93005; 94640; 96365; 96366; 96367; 96375; G0378; J0456; J0696; J1100; J1568; J1815; J2250; J3010; J3475; J3480; J3490; J7050; J7120; J7611; J7620; J7626; J8540; Q9961-U8

== ENCOUNTER 2021-09-20 10:21 | Emergency (ER) | payer OTHER ==
[2021-09-20 11:44] LABS: ALT (SGPT) 10 U/L (8-55); AST (SGOT) 15 U/L (5-34); Albumin 3.7 g/dL (3.5-5.0); Alkaline Phosphatase 77 U/L (40-110); Anion Gap 18 mmol/L (10-20); BUN (Urea Nitrogen) 41 mg/dL (7.0-18.7); Bilirubin, Total 0.6 mg/dL (0.2-1.2); Calc. Creatinine Clearance 0 mL/min (70-130); Calcium 9.6 mg/dL (7.8-10.44); Carbon Dioxide 16 mmol/L (22-29); Chloride 107 mmol/L (98-107); Estimated GFR 33; Globulin 2.5 g/dL (2.4-3.5); Glucose 83 mg/dL (70-105); Potassium 4.9 mmol/L (3.5-5.1); Protein, Total 6.2 g/dL (6.0-8.3); Sodium 136 mmol/L (136-145)
[2021-09-20 11:51] LABS: #Basophils 0.1 thou/uL (0.0-0.2); #Eosinphils 0.1 thou/uL (0.0-0.7); #Lymphocytes 0.9 thou/uL (1.20-3.40); #Monocytes 0.5 thou/uL (0.11-0.59); #Neutrophils 2.1 thou/uL (1.40-6.50); %Basophils 1.6 % (0.0-1.0); %Eosinophils 1.8 % (0.0-10.0); %Lymphocytes 26.2 % (21.0-51.0); %Monocytes 12.8 % (0.0-10.0); %Neutrophils 57.6 % (42.0-75.0); Hemoglobin 9.3 g/dL (12.0-16.0); Mean Corpuscular HGB CONC 33.5 g/dL (32.0-36.0); Mean Corpuscular Hemoglobin 27.1 pg (27.0-31.0); Mean Corpuscular Volume 80.8 fL (78.0-98.0); Platelet Count 60 thou/uL (130-400); RBC Distribution Width 14.9 % (11.5-14.5); Red Blood Cell (RBC) Count 3.42 mill/uL (4.20-5.40); White Blood Cell (WBC) Count 3.6 thou/uL (4.8-10.8)
[2021-09-20 13:34] LABS: BHCG - Serum Negative (NEGATIVE); Pregs Control Background? CLEAR/WHITE (CLR/WHITE); Pregs Control Bar Appear? YES (CONTROL BAR)
[2021-09-20 14:43] LABS: Bacteria/HPF None Seen HPF (None Seen); Bilirubin Negative (Negative); Blood, Urine Trace (Negative); Clarity Clear (Clear); Glucose, Urine (Dipstick) Greater than 1000 mg/dL (Negative); Ketone, Urine Negative (Negative); Leukocyte 25 Leu/uL (Negative); Nitrite Negative (Negative); Protein, Urine (Dipstick) 20 mg/dL (Neg-Trace); RBC/HPF 0-3 HPF (0-3); Squamous Epithelial 0-3 HPF (0-3); Urobilinogen Normal mg/dL (Less than 2); WBC/HPF 0-3 HPF (0-3); pH, Urine 5.5 (5.0-9.0)
[2021-09-20] MEDS ORDERED: Fluconazole 100 MG TAB PO SCH (16:45)
[2021-09-20] MEDS ORDERED: Ondansetron PF 4 MG/2 ML Vial ONE (17:25)
[2021-09-20] MEDS ORDERED: Ketorolac Tromethamine 30 MG/ML VIAL ONE (17:25)
== END 2021-09-20 18:02 | disposition home or self-care (01) ==
LOC: ERS 10:21
DX: R10.9 Unspecified abdominal pain (principal); R55 Syncope and collapse; R11.2 Nausea with vomiting, unspecified; E10.9 Type 1 diabetes mellitus without complications; I10 Essential (primary) hypertension; Z79.899 Other long term (current) drug therapy; Z79.4 Long term (current) use of insulin; D80.1 Nonfamilial hypogammaglobulinemia; D59.19 Other autoimmune hemolytic anemia; D61.818 Other pancytopenia
CPT/HCPCS: 36415; 74176; 80053; 81003; 81015; 82248; 83615; 84100; 84550; 84703; 85025; 87086; 93005; 96361; 96374; 96375; J1885; J2405

== ENCOUNTER 2021-10-05 21:38 | Emergency (ER) | payer OTHER ==
[2021-10-05 22:39] LABS: Hemoglobin 8.9 g/dL (12.0-16.0); Mean Corpuscular HGB CONC 33.2 g/dL (32.0-36.0); Mean Corpuscular Hemoglobin 27.6 pg (27.0-31.0); Mean Corpuscular Volume 83.2 fL (78.0-98.0); RBC Distribution Width 15.4 % (11.5-14.5); Red Blood Cell (RBC) Count 3.23 mill/uL (4.20-5.40)
[2021-10-05 22:50] LABS: ALT (SGPT) 11 U/L (8-55); AST (SGOT) 13 U/L (5-34); Albumin 3.5 g/dL (3.5-5.0); Alkaline Phosphatase 70 U/L (40-110); Anion Gap 15 mmol/L (10-20); BUN (Urea Nitrogen) 26 mg/dL (7.0-18.7); Bilirubin, Total 0.4 mg/dL (0.2-1.2); Calc. Creatinine Clearance 0 mL/min (70-130); Calcium 8.4 mg/dL (7.8-10.44); Carbon Dioxide 16 mmol/L (22-29); Chloride 109 mmol/L (98-107); Estimated GFR 30; Globulin 2.1 g/dL (2.4-3.5); Glucose 418 mg/dL (70-105); Potassium 4.3 mmol/L (3.5-5.1); Protein, Total 5.6 g/dL (6.0-8.3); Sodium 136 mmol/L (136-145)
[2021-10-05 22:57] LABS: #Eosinphils 0.1 thou/uL (0.0-0.7); #Lymphocytes 1.1 thou/uL (1.20-3.40); #Monocytes 0.3 thou/uL (0.11-0.59); #Neutrophils 1.5 thou/uL (1.40-6.50); %Basophils 1.4 % (0.0-1.0); %Eosinophils 3.2 % (0.0-10.0); %Lymphocytes 36.8 % (21.0-51.0); %Monocytes 8.7 % (0.0-10.0); %Neutrophils 49.9 % (42.0-75.0); Mean Platelet Volume 9.5 fL (7.4-10.4); Platelet Count 47 thou/uL (130-400); Platelet Morphology Comment Appears Decreased
[2021-10-05 23:51] LABS: BHCG - Serum Negative (NEGATIVE); Pregs Control Background? CLEAR/WHITE (CLR/WHITE); Pregs Control Bar Appear? YES (CONTROL BAR)
[2021-10-06] MEDS ORDERED: Dicyclomine 20 MG/2 ML VIAL ONE (01:31)
[2021-10-06] MEDS ORDERED: Dicyclomine 20 MG TAB ONE (01:40)
[2021-10-06 02:09] LABS: Bilirubin Negative (Negative); Blood, Urine Negative (Negative); Clarity Clear (Clear); Glucose, Urine (Dipstick) Greater than 1000 mg/dL (Negative); Ketone, Urine Negative (Negative); Leukocyte Negative Leu/uL (Negative); Nitrite Negative (Negative); Protein, Urine (Dipstick) Negative (Neg-Trace); Specific Gravity, Urine 1.018 (1.002-1.036); Urobilinogen Normal mg/dL (Less than 2)
[2021-10-06] MEDS ORDERED: Meclizine HCl 25 MG TAB ONE (02:41)
[2021-10-06] MEDS ORDERED: Ondansetron PF 4 MG/2 ML Vial ONE (02:46)
== END 2021-10-06 03:07 | disposition home or self-care (01) ==
LOC: ERS 21:38
DX: E10.65 Type 1 diabetes mellitus with hyperglycemia (principal); R19.7 Diarrhea, unspecified; R11.2 Nausea with vomiting, unspecified; R55 Syncope and collapse; Z79.4 Long term (current) use of insulin
CPT/HCPCS: 36415; 36416; 74177; 81003; 84484; 84703; 93005; 96361; 96374; J2405; Q9967

== ENCOUNTER 2021-10-18 10:43 | Emergency (ER) | payer OTHER ==
[2021-10-18 12:08] LABS: Hemoglobin 8.9 g/dL (12.0-16.0); Mean Corpuscular HGB CONC 32.2 g/dL (32.0-36.0); Mean Corpuscular Hemoglobin 27.2 pg (27.0-31.0); Mean Corpuscular Volume 84.4 fL (78.0-98.0); Platelet Count 67 thou/uL (130-400); RBC Distribution Width 15.8 % (11.5-14.5); Red Blood Cell (RBC) Count 3.28 mill/uL (4.20-5.40); White Blood Cell (WBC) Count 2.5 thou/uL (4.8-10.8)
[2021-10-18 12:14] LABS: Anion Gap 15 mmol/L (10-20); BUN (Urea Nitrogen) 24 mg/dL (7.0-18.7); Calc. Creatinine Clearance 0 mL/min (70-130); Calcium 8.5 mg/dL (7.8-10.44); Carbon Dioxide 18 mmol/L (22-29); Chloride 111 mmol/L (98-107); Estimated GFR 32; Sodium 140 mmol/L (136-145)
[2021-10-18 12:20] LABS: Glucose 57 mg/dL (70-105)
[2021-10-18 12:37] LABS: Band 6 % (5-11); Eosinophils 1 % (0-10); Lymphocytes 46 % (21-51); MDiff Complete? YES; Monocytes 5 % (0-10); Neutrophil 42 % (42-75); Ovalocytes SLIGHT = 2-5 cells (100X) (0-1/hpf); Platelet Morphology Comment Appears Decreased; Polychromasia SLIGHT = 2-3 cells (100X) (0-2/hpf)
== END 2021-10-18 13:43 | disposition home or self-care (01) ==
LOC: ERS 10:43
DX: D61.818 Other pancytopenia (principal); E10.9 Type 1 diabetes mellitus without complications; I10 Essential (primary) hypertension
CPT/HCPCS: 36416; 80048; 80053; 82248; 83615; 84100; 84550; 85025; 99283

== ENCOUNTER 2021-11-15 07:14 | Day surgery (SDC) | payer OTHER ==
[2021-11-15] MEDS ORDERED: Acetaminophen 500 MG TAB PO PRN (09:21)
[2021-11-15] MEDS ORDERED: Acetaminophen 500 MG TAB ONE (10:10)
[2021-11-15 10:15] LABS: Reticulocyte Count 5.4 % (0.5-1.5)
[2021-11-15] MEDS ORDERED: ADMIXTURE FEE IVPB SCH (10:30)
[2021-11-15] MEDS ORDERED: IMMUNE GLOBULIN IVPB SCH (10:30)
[2021-11-15 15:59] VITALS: TEMP 97.7
[2021-11-15 16:11] VITALS: BP 164/77
[2021-11-16 15:11] LABS: Hemoglobin 7.4 g/dL (12.0-16.0); Mean Corpuscular HGB CONC 32.7 g/dL (32.0-36.0); Mean Corpuscular Hemoglobin 28.1 pg (27.0-31.0); Mean Corpuscular Volume 85.9 fL (78.0-98.0); RBC Distribution Width 17.7 % (11.5-14.5); Red Blood Cell (RBC) Count 2.63 mill/uL (4.20-5.40)
[2021-11-16 15:37] LABS: Anisocytosis SLIGHT = 6-15 cells (100X) (0-5/hpf); Band 8 % (5-11); Eosinophils 2 % (0-10); Lymphocytes 30 % (21-51); MDiff Complete? YES; Mean Platelet Volume 11.8 fL (7.4-10.4); Monocytes 8 % (0-10); Neutrophil 50 % (42-75); Ovalocytes SLIGHT = 2-5 cells (100X) (0-1/hpf); Platelet Count 53 thou/uL (130-400); Platelet Morphology Comment Appears Decreased; Polychromasia MODERATE = 3-4 cells (100X) (0-2/hpf); Reactive Lymphocytes 1 % (0-10); White Blood Cell (WBC) Count 2.9 thou/uL (4.8-10.8)
== END 2021-11-15 16:00 | disposition home or self-care (01) ==
LOC: ONC/OP 07:14
PROVIDERS: ATTEND Internal Medicine Medical Oncology
DX: D80.1 Nonfamilial hypogammaglobulinemia (principal); D59.10 Autoimmune hemolytic anemia, unspecified; Z88.1 Allergy status to other antibiotic agents; Z88.2 Allergy status to sulfonamides; Z88.8 Allergy status to other drugs, medicaments and biological substances
CPT/HCPCS: 85025; 85046; 96365; 96366; 96367; J1100; J1568

== ENCOUNTER 2021-12-13 07:54 | Day surgery (SDC) | payer OTHER ==
[~2021-12-13 07:54] MED LIST changes: +ADMIXTURE FEE IVPB SCH; +Acetaminophen 500 MG TAB PO PRN; +IMMUNE GLOBULIN IVPB SCH; -Iopamidol-370 76% 500 ML 1 ML ONE
[2021-12-13] MEDS ORDERED: Acetaminophen 500 MG TAB ONE ×2 (08:58)
[2021-12-13] MEDS ORDERED: hydrOXYzine 25 MG TAB PO SCH (10:45)
[2021-12-13] MEDS ORDERED: Famotidine/PF 20 mg/2ml Vial ONE (10:48)
[2021-12-13] MEDS ORDERED: Famotidine/PF 20 mg/2ml Vial SLOW IVP SCH (11:15)
[2021-12-13 12:03] LABS: #Eosinphils 0.1 thou/uL (0.0-0.7); #Monocytes 0.2 thou/uL (0.11-0.59); #Neutrophils 1.6 thou/uL (1.40-6.50); %Basophils 0.3 % (0.0-1.0); %Eosinophils 2.1 % (0.0-10.0); %Lymphocytes 36.3 % (21.0-51.0); %Monocytes 5.9 % (0.0-10.0); %Neutrophils 55.5 % (42.0-75.0); Hemoglobin 8.1 g/dL (12.0-16.0); Mean Corpuscular Hemoglobin 26.7 pg (27.0-31.0); Mean Corpuscular Volume 83.5 fL (78.0-98.0); Mean Platelet Volume 11.6 fL (7.4-10.4); Platelet Count 63 thou/uL (130-400); RBC Distribution Width 16.4 % (11.5-14.5); Red Blood Cell (RBC) Count 3.03 mill/uL (4.20-5.40); White Blood Cell (WBC) Count 2.8 thou/uL (4.8-10.8)
[2021-12-13 13:11] LABS: ALT (SGPT) Less than 7 U/L (8-55); AST (SGOT) 13 U/L (5-34); Albumin 3.8 g/dL (3.5-5.0); Alkaline Phosphatase 78 U/L (40-110); Anion Gap 16 mmol/L (10-20); BUN (Urea Nitrogen) 28 mg/dL (7.0-18.7); Bilirubin, Total 0.8 mg/dL (0.2-1.2); Calc. Creatinine Clearance 0 mL/min (70-130); Calcium 8.5 mg/dL (7.8-10.44); Carbon Dioxide 17 mmol/L (22-29); Chloride 106 mmol/L (98-107); Estimated GFR 32; Globulin 2.1 g/dL (2.4-3.5); Glucose 401 mg/dL (70-105); Potassium 4.8 mmol/L (3.5-5.1); Protein, Total 5.9 g/dL (6.0-8.3); Sodium 134 mmol/L (136-145)
[2021-12-13] MEDS ORDERED: Cepastat Lozenges 1 LOZ PO PRN (13:57)
[2021-12-13] MEDS ORDERED: Insulin Regular 300 UNITS/3 ML VIAL SC SCH (14:45)
[2021-12-13 18:35] VITALS: BP 143/72; TEMP 97.5
== END 2021-12-13 15:55 | disposition short-term general hospital (02) ==
LOC: ONC/OP 07:54
PROVIDERS: ATTEND Internal Medicine Medical Oncology
DX: D80.1 Nonfamilial hypogammaglobulinemia (principal); D59.10 Autoimmune hemolytic anemia, unspecified; Z88.1 Allergy status to other antibiotic agents; Z88.2 Allergy status to sulfonamides; Z88.8 Allergy status to other drugs, medicaments and biological substances
CPT/HCPCS: 80053; 82728; 83010; 83615; 84550; 85025; 94640; 96365; 96366; 96372; 96375; 99214; G0463; J1100; J1568; J1815; J7620; S0028

== ENCOUNTER 2021-12-13 16:21 | Inpatient (IN) | payer OTHER ==
[2021-12-13 17:05] LABS: Actual Bicarbonate (HCO3v) 17 mEq/L (22-28); Base Excess -7.6 mEq/L (-2.0 to +3.0); Calcium, Ionized (venous) 1.04 mmol/L (1.16-1.32); Chloride (VBG) 98 mmol/L (98-106); Hemoglobin (Hb) 8.5 g/dL (11.7-15.5); Potassium (VBG) 5.95 mmol/L (3.70-5.30); Sodium 124.1 mmol/L (133-146); pH (venous) 7.37 (7.32-7.43)
[2021-12-13 17:09] LABS: #Lymphocytes 0.4 thou/uL (1.20-3.40); #Neutrophils 1.2 thou/uL (1.40-6.50); %Basophils 0.7 % (0.0-1.0); %Eosinophils 1.6 % (0.0-10.0); %Lymphocytes 24.7 % (21.0-51.0); %Monocytes 2.1 % (0.0-10.0); %Neutrophils 70.9 % (42.0-75.0); Hemoglobin 7.9 g/dL (12.0-16.0); Mean Corpuscular HGB CONC 31.9 g/dL (32.0-36.0); Mean Corpuscular Hemoglobin 27.3 pg (27.0-31.0); Mean Corpuscular Volume 85.8 fL (78.0-98.0); Platelet Count 53 thou/uL (130-400); RBC Distribution Width 15.9 % (11.5-14.5); Red Blood Cell (RBC) Count 2.88 mill/uL (4.20-5.40); White Blood Cell (WBC) Count 1.7 thou/uL (4.8-10.8)
[2021-12-13 17:37] LABS: Albumin 3.9 g/dL (3.5-5.0)
[2021-12-13 17:38] LABS: Chloride 100 mmol/L (98-107); Potassium 6.1 mmol/L (3.5-5.1); Sodium 126 mmol/L (136-145)
[2021-12-13 17:39] LABS: Calcium 8.4 mg/dL (7.8-10.44)
[2021-12-13] MEDS ORDERED: Dicyclomine 20 MG/2 ML VIAL ONE (17:39)
[2021-12-13 17:40] LABS: Globulin 2.9 g/dL (2.4-3.5); Protein, Total 6.8 g/dL (6.0-8.3)
[2021-12-13 17:41] LABS: Bilirubin, Total 0.6 mg/dL (0.2-1.2); Carbon Dioxide 15 mmol/L (22-29)
[2021-12-13] MEDS ORDERED: diphenhydrAMINE 50 MG/ML VIAL ONE (17:41)
[2021-12-13 17:43] LABS: Alkaline Phosphatase 89 U/L (40-110); Calc. Creatinine Clearance 0 mL/min (70-130); Estimated GFR 26; Phosphorus 2.8 mg/dL (2.3-4.7)
[2021-12-13 17:44] LABS: BUN (Urea Nitrogen) 34 mg/dL (7.0-18.7)
[2021-12-13 17:45] LABS: AST (SGOT) 12 U/L (5-34); Magnesium 1.7 mg/dL (1.6-2.6)
[2021-12-13 17:46] LABS: ALT (SGPT) Less than 7 U/L (8-55)
[2021-12-13 18:09] LABS: Anion Gap 17 mmol/L (10-20); Glucose 835 mg/dL (70-105)
[2021-12-13] MEDS ORDERED: Insulin Regular 300 UNITS/3 ML VIAL ONE (18:54)
[2021-12-13 22:28] LABS: Calcium 8.5 mg/dL (7.8-10.44); Chloride 104 mmol/L (98-107); Potassium 5.8 mmol/L (3.5-5.1); Sodium 128 mmol/L (136-145)
[2021-12-13 22:30] LABS: Carbon Dioxide 11 mmol/L (22-29)
[2021-12-13 22:32] LABS: Calc. Creatinine Clearance 0 mL/min (70-130); Estimated GFR 29
[2021-12-13 22:33] LABS: BUN (Urea Nitrogen) 32 mg/dL (7.0-18.7)
[2021-12-13 22:36] LABS: Glucose 673 mg/dL (70-105)
[2021-12-13] MEDS ORDERED: Insulin Glargine 30 UNITS/0.3 ML VIAL SC SCH (23:00)
[2021-12-14] MEDS ORDERED: Ondansetron PF 4 MG/2 ML Vial IVP PRN (00:14)
[2021-12-14] MEDS ORDERED: Acetaminophen 650 MG Suppository PR PRN (00:14)
[2021-12-14] MEDS ORDERED: Ondansetron ODT 4 MG TAB PO PRN (00:14)
[2021-12-14] MEDS ORDERED: Dextrose 50% Abboject 50 ML SYRINGE SLOW IVP PRN (00:17)
[2021-12-14] MEDS ORDERED: Dextrose 5% in Water 1,000 ML IV PRN (00:17)
[2021-12-14 01:43] LABS: Anion Gap 19 mmol/L (10-20)
[2021-12-14] MEDS ORDERED: HumaLOG 300 UNITS/3 ML VIAL ONE ×4 (02:30→11:13)
[2021-12-14] MEDS: HumaLOG 300 UNITS/3 ML VIAL SC PRN ×7 (02:37→22:16)
[2021-12-14] MEDS ORDERED: diphenhydrAMINE 25 MG CAP PO PRN (04:57)
[2021-12-14] MEDS: Sodium Chloride 0.9% 1,000 ML IV SCH ×3 (04:58→20:24)
[2021-12-14] MEDS ORDERED: HumaLOG 300 UNITS/3 ML VIAL SC SCH (05:15)
[2021-12-14 05:21] LABS: Anion Gap 13 mmol/L (10-20); BUN (Urea Nitrogen) 30 mg/dL (7.0-18.7); Calc. Creatinine Clearance 0 mL/min (70-130); Calcium 8.9 mg/dL (7.8-10.44); Carbon Dioxide 20 mmol/L (22-29); Chloride 107 mmol/L (98-107); Estimated GFR 36; Glucose 327 mg/dL (70-105); Potassium 4.5 mmol/L (3.5-5.1); Sodium 135 mmol/L (136-145)
[2021-12-14 05:26] LABS: #Lymphocytes 0.6 thou/uL (1.20-3.40); #Monocytes 0.2 thou/uL (0.11-0.59); #Neutrophils 1.2 thou/uL (1.40-6.50); %Basophils 0.6 % (0.0-1.0); %Eosinophils 0.7 % (0.0-10.0); %Lymphocytes 30.1 % (21.0-51.0); %Monocytes 8.2 % (0.0-10.0); %Neutrophils 60.4 % (42.0-75.0); Hemoglobin 7.9 g/dL (12.0-16.0); Mean Corpuscular HGB CONC 32.9 g/dL (32.0-36.0); Mean Corpuscular Hemoglobin 27.4 pg (27.0-31.0); Mean Corpuscular Volume 83.3 fL (78.0-98.0); Mean Platelet Volume 9.6 fL (7.4-10.4); Platelet Count 59 thou/uL (130-400); RBC Distribution Width 15.9 % (11.5-14.5); Red Blood Cell (RBC) Count 2.89 mill/uL (4.20-5.40)
[2021-12-14] MEDS: Acetaminophen 325 MG TAB PO PRN (06:22)
[2021-12-14] MEDS ORDERED: Acetaminophen 325 MG TAB ONE (06:23)
[2021-12-14] MEDS ORDERED: Enoxaparin Sodium 40 MG/0.4 ML SYRINGE SC SCH (09:00)
[2021-12-14 10:17] LABS: SARS-CoV-2 NAA Rapid Test Not Detected (NotDetected)
[2021-12-14] MEDS ORDERED: hydrOXYzine 25 MG TAB PO PRN (10:35)
[2021-12-14 12:31] LABS: Iron 43 ug/dL (50-170); Iron Binding Capacity, Total 256 mcg/dL (265-497)
[2021-12-14 14:56] LABS: Bilirubin Negative (Negative); Blood, Urine 3+ (Negative); Clarity Clear (Clear); Glucose, Urine (Dipstick) Greater than 1000 mg/dL (Negative); Ketone, Urine Negative (Negative); Leukocyte Negative Leu/uL (Negative); Nitrite Negative (Negative); Protein, Urine (Dipstick) 50 mg/dL (Neg-Trace); Specific Gravity, Urine 1.015 (1.002-1.036); Urobilinogen Normal mg/dL (Less than 2)
[2021-12-14 14:57] LABS: Bacteria/HPF Rare-Few HPF (None Seen)
[2021-12-14 14:58] LABS: RBC/HPF 0-3 HPF (0-3); Squamous Epithelial 0-3 HPF (0-3); WBC/HPF 0-3 HPF (0-3)
[2021-12-14] MEDS: Sodium Bicarbonate Tab 325 MG TAB PO SCH ×2 (16:21→20:25)
[2021-12-14 23:04] VITALS: BMI 37.2
[2021-12-15] MEDS: HumaLOG 300 UNITS/3 ML VIAL SC PRN ×10 (00:27→20:34)
[2021-12-15] MEDS ORDERED: Iron, Sodium Ferric Gluconate 250 MG in Sodium Chloride 0.9% 250 ML 250 ML IVPB SCH (07:30)
[2021-12-15] MEDS ORDERED: Epoetin (NON-ESRD) 10,000 UNITS/ML VIAL IVP SCH (07:30)
[2021-12-15 07:40] LABS: Anion Gap 11 mmol/L (10-20); BUN (Urea Nitrogen) 33 mg/dL (7.0-18.7); Calc. Creatinine Clearance 83 mL/min (70-130); Calcium 8.6 mg/dL (7.8-10.44); Carbon Dioxide 19 mmol/L (22-29); Chloride 111 mmol/L (98-107); Estimated GFR 46; Glucose 165 mg/dL (70-105); Potassium 4.4 mmol/L (3.5-5.1); Sodium 137 mmol/L (136-145)
[2021-12-15] MEDS: Sodium Bicarbonate Tab 325 MG TAB PO SCH ×3 (08:24→20:33)
[2021-12-15] MEDS: Sodium Chloride 0.9% 1,000 ML IV SCH (08:25)
[2021-12-15 09:01] LABS: Hemoglobin 7.6 g/dL (12.0-16.0); Mean Corpuscular HGB CONC 31.1 g/dL (32.0-36.0); Mean Corpuscular Hemoglobin 26.2 pg (27.0-31.0); Mean Corpuscular Volume 84.3 fL (78.0-98.0); Mean Platelet Volume 10.2 fL (7.4-10.4); Platelet Count 49 thou/uL (130-400); RBC Distribution Width 15.5 % (11.5-14.5); White Blood Cell (WBC) Count 2.4 thou/uL (4.8-10.8)
[2021-12-15] MEDS ORDERED: guaiFENesin ER 600 MG TAB PO SCH (09:15)
[2021-12-15] MEDS: Acetaminophen 325 MG TAB PO PRN ×2 (09:47→20:30)
[2021-12-15] MEDS: guaiFENesin ER 600 MG TAB PO SCH (20:32)
[2021-12-16] MEDS: HumaLOG 300 UNITS/3 ML VIAL SC PRN ×4 (05:55→19:43)
[2021-12-16 07:04] LABS: Anion Gap 11 mmol/L (10-20); BUN (Urea Nitrogen) 34 mg/dL (7.0-18.7); Calc. Creatinine Clearance 84 mL/min (70-130); Calcium 8.5 mg/dL (7.8-10.44); Carbon Dioxide 19 mmol/L (22-29); Chloride 110 mmol/L (98-107); Estimated GFR 48; Glucose 250 mg/dL (70-105); Potassium 4.8 mmol/L (3.5-5.1); Sodium 135 mmol/L (136-145)
[2021-12-16] MEDS: guaiFENesin ER 600 MG TAB PO SCH ×2 (09:13→19:42)
[2021-12-16] MEDS: Sodium Bicarbonate Tab 325 MG TAB PO SCH ×3 (09:13→19:41)
[2021-12-16] MEDS: Acetaminophen 325 MG TAB PO PRN (11:55)
[2021-12-16] MEDS ORDERED: Cepastat Lozenges 1 LOZ PO PRN (16:51)
[2021-12-16] MEDS ORDERED: Cepastat Lozenges 1 LOZ PO SCH (17:00)
[2021-12-16 19:48] VITALS: BP 127/82; TEMP 98
[2021-12-17] MEDS ORDERED: FLU VACC QS2022-23(6MOS UP)/PF 60 MCG/0.5 ML SYRINGE IM ONE (09:00)
== END 2021-12-16 20:17 | disposition home or self-care (01) | DRG 683 ==
LOC: ERS 16:21 → ERHOLD 23:43 → 2NO 12-14 18:34 → T4-B 12-15 18:33
PROVIDERS: ADMIT Student in an Organized Health Care Education/Training Program; ATTEND Internal Medicine
DX: N17.9 Acute kidney failure, unspecified (principal); D59.10 Autoimmune hemolytic anemia, unspecified; E87.20 Acidosis, unspecified; E87.1 Hypo-osmolality and hyponatremia; L27.0 Generalized skin eruption due to drugs and medicaments taken internally; R11.2 Nausea with vomiting, unspecified; R49.0 Dysphonia; T50.Z15A Adverse effect of immunoglobulin, initial encounter; Z88.2 Allergy status to sulfonamides; Z88.8 Allergy status to other drugs, medicaments and biological substances; Z20.822 Contact with and (suspected) exposure to COVID-19; Z79.4 Long term (current) use of insulin; Z79.52 Long term (current) use of systemic steroids; Z79.899 Other long term (current) drug therapy; J45.909 Unspecified asthma, uncomplicated; E87.6 Hypokalemia; E10.65 Type 1 diabetes mellitus with hyperglycemia; F70 Mild intellectual disabilities; I12.9 Hypertensive chronic kidney disease with stage 1 through stage 4 chronic kidney disease, or unspecified chronic kidney disease; E10.22 Type 1 diabetes mellitus with diabetic chronic kidney disease; N18.30 Chronic kidney disease, stage 3 unspecified; Y92.89 Other specified places as the place of occurrence of the external cause; E10.21 Type 1 diabetes mellitus with diabetic nephropathy; E86.9 Volume depletion, unspecified; D63.1 Anemia in chronic kidney disease; D50.9 Iron deficiency anemia, unspecified; T38.0X5A Adverse effect of glucocorticoids and synthetic analogues, initial encounter
CPT/HCPCS: 36415; 36416; 71045; 80048; 80053; 81003; 81015; 82010; 82728; 82805; 83010; 83540; 83550; 83615; 83735; 83930; 84100; 84550; 85025; 85027; 93005; 94640; 96365; 96366; 96372; 96374; 96375; 99214; G0463; J1100; J1200; J1568; J1815; J2916; J7050; J7620; Q0162; S0028; U0002

== ENCOUNTER 2021-12-28 15:00 | Emergency (ER) | payer OTHER ==
[2021-12-28 15:40] LABS: #Eosinphils 0.1 thou/uL (0.0-0.7); #Lymphocytes 1.1 thou/uL (1.20-3.40); #Monocytes 0.3 thou/uL (0.11-0.59); #Neutrophils 2.5 thou/uL (1.40-6.50); %Eosinophils 1.5 % (0.0-10.0); %Lymphocytes 28.1 % (21.0-51.0); %Neutrophils 62.4 % (42.0-75.0); Hemoglobin 9.3 g/dL (12.0-16.0); Mean Corpuscular Hemoglobin 26.3 pg (27.0-31.0); Mean Corpuscular Volume 84.9 fl (78.0-98.0); Mean Platelet Volume 10.4 fL (7.4-10.4); Platelet Count 79 thou/uL (130-400); RBC Distribution Width 16.8 % (11.5-14.5); Red Blood Cell (RBC) Count 3.53 mill/uL (4.20-5.40); White Blood Cell (WBC) Count 4.1 thou/uL (4.8-10.8)
[2021-12-28 15:55] LABS: ALT (SGPT) 10 U/L (8-55); AST (SGOT) 13 U/L (5-34); Albumin 4.1 g/dL (3.5-5.0); Alkaline Phosphatase 71 U/L (40-110); Anion Gap 13 mmol/L (10-20); BUN (Urea Nitrogen) 37 mg/dL (7.0-18.7); Bilirubin, Total 0.6 mg/dL (0.2-1.2); Calc. Creatinine Clearance 0 mL/min (70-130); Calcium 8.9 mg/dL (7.8-10.44); Carbon Dioxide 20 mmol/L (22-29); Chloride 110 mmol/L (98-107); Estimated GFR 30; Globulin 2.5 g/dL (2.4-3.5); Glucose 75 mg/dL (70-105); Potassium 4.4 mmol/L (3.5-5.1); Protein, Total 6.6 g/dL (6.0-8.3); Sodium 139 mmol/L (136-145)
[2021-12-28 18:03] LABS: Bacteria/HPF None Seen HPF (None Seen); Bilirubin Negative (Negative); Blood, Urine 3+ (Negative); Clarity Clear (Clear); Glucose, Urine (Dipstick) Greater than 1000 mg/dL (Negative); Ketone, Urine Negative (Negative); Leukocyte Negative Leu/uL (Negative); Nitrite Negative (Negative); Protein, Urine (Dipstick) 30 mg/dL (Neg-Trace); RBC/HPF 21-50 HPF (0-3); Specific Gravity, Urine 1.013 (1.002-1.036); Squamous Epithelial 0-3 HPF (0-3); Urobilinogen Normal mg/dL (Less than 2); pH, Urine 5.5 (5.0-9.0)
[2021-12-28 18:05] LABS: Pregnancy Test - Urine (BHCG) Negative (Negative); Pregu Control Background? CLEAR/WHITE (CLR/WHITE); Pregu Control Bar Appear? YES (CONTROL BAR); Specific Gravity 1.013 (1.002-1.036)
[2021-12-28 21:52] LABS: Creatinine, Urine 68.68 mg/dL (47-110); Microalbumin Urine 28.9 mg/dL (0.5-50.0); Microalbumin/Creat Ratio 420.8 mg/g (Less than 30)
== END 2021-12-28 21:57 | disposition home or self-care (01) ==
LOC: ERS 15:00
DX: R10.84 Generalized abdominal pain (principal); E11.22 Type 2 diabetes mellitus with diabetic chronic kidney disease; I12.9 Hypertensive chronic kidney disease with stage 1 through stage 4 chronic kidney disease, or unspecified chronic kidney disease; N18.9 Chronic kidney disease, unspecified; J45.909 Unspecified asthma, uncomplicated; N13.30 Unspecified hydronephrosis; Z79.01 Long term (current) use of anticoagulants; Z79.4 Long term (current) use of insulin; Z79.899 Other long term (current) drug therapy
CPT/HCPCS: 36415; 36416; 74176; 80053; 81003; 81015; 81025; 82043; 82570; 84300; 85025

== ENCOUNTER 2022-03-06 20:47 | Inpatient (IN) | payer OTHER ==
[2022-03-06] MEDS ORDERED: Cefepime 2 GM VIAL ONE (21:48)
[2022-03-06] MEDS ORDERED: Acetaminophen 325 MG TAB ONE (21:48)
[2022-03-06] MEDS ORDERED: Vancomycin 1 GM/200 ML (FROZEN) BAG ONE ×2 (21:48→21:50)
[2022-03-06 22:03] LABS: BHCG - Serum Negative (NEGATIVE); Pregs Control Background? CLEAR/WHITE (CLR/WHITE); Pregs Control Bar Appear? YES (CONTROL BAR)
[2022-03-06] MEDS ORDERED: Ondansetron PF 4 MG/2 ML Vial ONE (22:09)
[2022-03-06] MEDS ORDERED: Dexamethasone 10 MG/ML VIAL ONE (22:09)
[2022-03-06 22:10] LABS: Hemoglobin 8.6 g/dL (12.0-16.0); Mean Corpuscular HGB CONC 32.8 g/dL (32.0-36.0); Mean Corpuscular Hemoglobin 27.9 pg (27.0-31.0); Mean Corpuscular Volume 84.8 fl (78.0-98.0); RBC Distribution Width 16.2 % (11.5-14.5); White Blood Cell (WBC) Count 6.4 10x3/uL (4.8-10.8)
[2022-03-06] MEDS ORDERED: Ipratropium Bromide 2.5 ml Neb ONE (22:10)
[2022-03-06 22:16] LABS: INR-International Normal Ratio 1.2; PTT 34.3 sec (22.9-36.1); Prothrombin Time 15.8 sec (12.0-14.7)
[2022-03-06 22:19] LABS: ALT (SGPT) Less than 7 U/L (8-55); AST (SGOT) 8 U/L (5-34); Albumin 3.9 g/dL (3.5-5.0); Alkaline Phosphatase 68 U/L (40-110); Anion Gap 17 mmol/L (10-20); BUN (Urea Nitrogen) 24 mg/dL (7.0-18.7); Bilirubin, Total 1.4 mg/dL (0.2-1.2); Calc. Creatinine Clearance 0 mL/min (70-130); Calcium 9.1 mg/dL (7.8-10.44); Carbon Dioxide 18 mmol/L (22-29); Chloride 104 mmol/L (98-107); Estimated GFR 33; Globulin 2.7 g/dL (2.4-3.5); Glucose 371 mg/dL (70-105); Lipase 16 U/L (8-78); Potassium 4.9 mmol/L (3.5-5.1); Protein, Total 6.6 g/dL (6.0-8.3); Sodium 134 mmol/L (136-145)
[2022-03-06 22:29] LABS: Anisocytosis SLIGHT = 6-15 cells (100X) (0-5/hpf); Band 8 % (5-11); Lymphocytes 15 % (21-51); MDiff Complete? YES; Mean Platelet Volume 10.8 fL (7.4-10.4); Monocytes 8 % (0-10); Neutrophil 69 % (42-75); Nucleated RBC 1 % (0); Platelet Count 71 10x3/uL (130-400); Platelet Morphology Comment Appears Decreased
[2022-03-06 22:36] LABS: SARS-CoV-2 NAA Rapid Test Not Detected (NotDetected)
[2022-03-06 23:19] LABS: Bacteria/HPF None Seen HPF (None Seen); Bilirubin Negative (Negative); Blood, Urine 2+ (Negative); Clarity Clear (Clear); Glucose, Urine (Dipstick) Greater than 1000 mg/dL (Negative); Ketone, Urine 10 mg/dL (Negative); Leukocyte 25 Leu/uL (Negative); Nitrite Negative (Negative); Protein, Urine (Dipstick) 100 mg/dL (Neg-Trace); Specific Gravity, Urine 1.017 (1.002-1.036); Squamous Epithelial 0-3 HPF (0-3); Urobilinogen Normal mg/dL (Less than 2); pH, Urine 5.5 (5.0-9.0)
[2022-03-06 23:46] LABS: Analyzer IN Cardio ER; Calcium, Ionized (venous) 1.01 mmol/L (1.16-1.32); Chloride (VBG) 107 mmol/L (98-106); Potassium (VBG) 4.53 mmol/L (3.70-5.30); Sodium 130.2 mmol/L (133-146); pH (venous) 7.41 (7.32-7.43)
[2022-03-07 00:28] LABS: Actual Bicarbonate (HCO3v) 13 mEq/L (22-28)
[2022-03-07] MEDS ORDERED: Dextrose 5% in Water 1,000 ML IV PRN (01:32)
[2022-03-07] MEDS ORDERED: Dextrose 50% Abboject 50 ML SYRINGE SLOW IVP PRN (01:32)
[2022-03-07] MEDS ORDERED: HumaLOG 300 UNITS/3 ML VIAL SC PRN (01:39)
[2022-03-07] MEDS ORDERED: Insulin Glargine 30 UNITS/0.3 ML VIAL SC SCH ×3 (01:45→16:15)
[2022-03-07 01:48] LABS: Troponin I Less than 0.010 ng/mL (< 0.028)
[2022-03-07 02:23] VITALS: BMI 37.9
[2022-03-07 02:57] LABS: Legionella Urinary Ag Negative (Negative); Strep pneumo Urine Ag NEGATIVE (NEGATIVE)
[2022-03-07] MEDS: HumaLOG 300 UNITS/3 ML VIAL SC PRN ×3 (02:59→20:45)
[2022-03-07] MEDS: cefTRIAXone\\ROCEPHIN 1 GM in Sodium Chloride 0.9% 100 ML IVPB SCH (02:59)
[2022-03-07] MEDS: Azithromycin 500 MG in Sodium Chloride 0.9% 250 ML 250 ML IVPB SCH (03:31)
[2022-03-07] MEDS: Ipratropium Bromide 2.5 ml Neb NEB SCH ×6 (03:57→22:05)
[2022-03-07 05:27] LABS: Anion Gap 16 mmol/L (10-20); BUN (Urea Nitrogen) 28 mg/dL (7.0-18.7); Calc. Creatinine Clearance 61 mL/min (70-130); Calcium 7.8 mg/dL (7.8-10.44); Carbon Dioxide 13 mmol/L (22-29); Chloride 109 mmol/L (98-107); Estimated GFR 35; Magnesium 1.6 mg/dL (1.6-2.6); Potassium 5.6 mmol/L (3.5-5.1); Sodium 132 mmol/L (136-145)
[2022-03-07 05:31] LABS: Troponin I Less than 0.010 ng/mL (< 0.028)
[2022-03-07 05:31] LABS: Glucose 536 mg/dL (70-105)
[2022-03-07 05:45] LABS: #Lymphocytes 0.7 thou/uL (1.20-3.40); #Monocytes 0.1 thou/uL (0.11-0.59); #Neutrophils 3.2 thou/uL (1.40-6.50); %Eosinophils 0.3 % (0.0-10.0); %Lymphocytes 17.6 % (21.0-51.0); %Monocytes 2.5 % (0.0-10.0); %Neutrophils 79.5 % (42.0-75.0); Mean Corpuscular HGB CONC 32.9 g/dL (32.0-36.0); Mean Corpuscular Volume 88.2 fl (78.0-98.0); Mean Platelet Volume 10.7 fL (7.4-10.4); Platelet Count 50 10x3/uL (130-400); Red Blood Cell (RBC) Count 2.42 mill/uL (4.20-5.40)
[2022-03-07] MEDS ORDERED: HumaLOG 300 UNITS/3 ML VIAL SC SCH (06:00)
[2022-03-07 09:00] LABS: Anion Gap 14 mmol/L (10-20); BUN (Urea Nitrogen) 32 mg/dL (7.0-18.7); Calc. Creatinine Clearance 56 mL/min (70-130); Calcium 7.9 mg/dL (7.8-10.44); Carbon Dioxide 16 mmol/L (22-29); Chloride 105 mmol/L (98-107); Estimated GFR 32; Sodium 130 mmol/L (136-145)
[2022-03-07 09:21] LABS: Glucose 695 mg/dL (70-105)
[2022-03-07] MEDS: Sodium Chloride 0.9% 1,000 ML IV SCH ×2 (09:37→17:27)
[2022-03-07] MEDS ORDERED: HUMULIN R 100 UNITS in Sodium Chloride 0.9% 100 ML IVPB SCH (10:00)
[2022-03-07 12:30] LABS: Glucose 693 mg/dL (70-105)
[2022-03-07 13:37] LABS: Hemoglobin 6.7 g/dL (12.0-16.0)
[2022-03-07] MEDS ORDERED: Fioricet 325/50/40 mg Tablet PO PRN (14:27)
[2022-03-07 17:30] LABS: Anion Gap 12 mmol/L (10-20); BUN (Urea Nitrogen) 32 mg/dL (7.0-18.7); Calc. Creatinine Clearance 69 mL/min (70-130); Calcium 8.2 mg/dL (7.8-10.44); Carbon Dioxide 18 mmol/L (22-29); Chloride 110 mmol/L (98-107); Estimated GFR 41; Glucose 302 mg/dL (70-105); Potassium 4.9 mmol/L (3.5-5.1); Sodium 135 mmol/L (136-145)
[2022-03-07] MEDS: Sodium Bicarbonate Tab 325 MG TAB PO SCH ×2 (17:33→20:18)
[2022-03-07] MEDS: Pregabalin 25 MG CAP PO SCH (20:16)
[2022-03-07] MEDS: guaiFENesin ER 600 MG TAB PO SCH ×2 (20:16→20:50)
[2022-03-07 20:18] LABS: Glucose 387 mg/dL (70-105)
[2022-03-08 00:45] LABS: Glucose 326 mg/dL (70-105)
[2022-03-08] MEDS: Azithromycin 500 MG in Sodium Chloride 0.9% 250 ML 250 ML IVPB SCH (01:21)
[2022-03-08] MEDS: HumaLOG 300 UNITS/3 ML VIAL SC PRN ×4 (01:22→22:24)
[2022-03-08] MEDS: Ipratropium Bromide 2.5 ml Neb NEB SCH ×6 (03:10→21:57)
[2022-03-08] MEDS: cefTRIAXone\\ROCEPHIN 1 GM in Sodium Chloride 0.9% 100 ML IVPB SCH (03:15)
[2022-03-08 04:43] LABS: Hemoglobin A1c 10.2 % (4.0-6.0)
[2022-03-08 04:51] LABS: Hemoglobin 6.2 g/dL (12.0-16.0); Mean Corpuscular Volume 87.5 fl (78.0-98.0); Mean Platelet Volume 10.4 fL (7.4-10.4); Platelet Count 54 10x3/uL (130-400); Red Blood Cell (RBC) Count 2.22 mill/uL (4.20-5.40); White Blood Cell (WBC) Count 2.5 10x3/uL (4.8-10.8)
[2022-03-08 05:24] LABS: Anion Gap 10 mmol/L (10-20); BUN (Urea Nitrogen) 35 mg/dL (7.0-18.7); Calc. Creatinine Clearance 68 mL/min (70-130); Calcium 8.2 mg/dL (7.8-10.44); Carbon Dioxide 20 mmol/L (22-29); Chloride 112 mmol/L (98-107); Estimated GFR 41; Glucose 310 mg/dL (70-105); Potassium 4.8 mmol/L (3.5-5.1); Sodium 137 mmol/L (136-145)
[2022-03-08] MEDS: GUAIFENESIN SF SOLN 200 MG/10 ML UDCUP PO SCH ×3 (05:49→17:53)
[2022-03-08] MEDS: Sodium Bicarbonate Tab 325 MG TAB PO SCH ×3 (08:50→20:30)
[2022-03-08] MEDS: Atorvastatin Calcium 10 MG TAB PO SCH (08:50)
[2022-03-08] MEDS: Pregabalin 25 MG CAP PO SCH ×2 (08:50→20:30)
[2022-03-08 09:43] LABS: Glucose 310 mg/dL (70-105)
[2022-03-08 14:39] LABS: Glucose 389 mg/dL (70-105)
[2022-03-08 18:30] LABS: Glucose 317 mg/dL (70-105)
[2022-03-08 22:00] LABS: Glucose 372 mg/dL (70-105)
[2022-03-08 23:38] LABS: Hemoglobin 8.3 g/dL (12.0-16.0)
[2022-03-09] MEDS: Azithromycin 500 MG in Sodium Chloride 0.9% 250 ML 250 ML IVPB SCH (01:27)
[2022-03-09] MEDS: GUAIFENESIN SF SOLN 200 MG/10 ML UDCUP PO SCH ×5 (01:28→23:35)
[2022-03-09 02:41] LABS: Glucose 381 mg/dL (70-105)
[2022-03-09] MEDS: cefTRIAXone\\ROCEPHIN 1 GM in Sodium Chloride 0.9% 100 ML IVPB SCH (02:50)
[2022-03-09] MEDS: HumaLOG 300 UNITS/3 ML VIAL SC PRN ×4 (02:51→20:29)
[2022-03-09] MEDS: Ondansetron PF 4 MG/2 ML Vial IVP PRN ×3 (02:56→20:33)
[2022-03-09] MEDS: Ipratropium Bromide 2.5 ml Neb NEB SCH ×6 (03:09→23:06)
[2022-03-09 07:10] LABS: Glucose 257 mg/dL (70-105)
[2022-03-09] MEDS: Pregabalin 25 MG CAP PO SCH ×2 (08:19→20:29)
[2022-03-09] MEDS: Sodium Bicarbonate Tab 325 MG TAB PO SCH ×3 (08:19→20:29)
[2022-03-09] MEDS: Atorvastatin Calcium 10 MG TAB PO SCH (08:20)
[2022-03-09] MEDS: Fluticasone Propionate Nasal Spray 16 gm Bottle NASAL SCH (13:09)
[2022-03-09] MEDS: Benzonatate 100 MG CAP PO SCH ×2 (15:04→20:29)
[2022-03-09] MEDS ORDERED: AFRIN NASAL MIST 15 ML BOT NS SCH (21:00)
[2022-03-09] MEDS: Oxymetazoline HCl 0.05% (30 ML BOT) NS SCH (21:57)
[2022-03-09] MEDS: hydrOXYzine 25 MG TAB PO PRN (23:34)
[2022-03-10] MEDS: Azithromycin 500 MG in Sodium Chloride 0.9% 250 ML 250 ML IVPB SCH (02:34)
[2022-03-10] MEDS: Ipratropium Bromide 2.5 ml Neb NEB SCH ×6 (02:44→22:18)
[2022-03-10] MEDS: cefTRIAXone\\ROCEPHIN 1 GM in Sodium Chloride 0.9% 100 ML IVPB SCH (03:46)
[2022-03-10] MEDS: GUAIFENESIN SF SOLN 200 MG/10 ML UDCUP PO SCH ×3 (06:26→17:11)
[2022-03-10] MEDS: HumaLOG 300 UNITS/3 ML VIAL SC PRN ×5 (06:27→21:08)
[2022-03-10] MEDS: Ondansetron ODT 4 MG TAB PO PRN ×3 (06:30→18:21)
[2022-03-10] MEDS ORDERED: Empagliflozin 10 MG TAB PO SCH (09:00)
[2022-03-10] MEDS: Benzonatate 100 MG CAP PO SCH ×3 (09:59→21:05)
[2022-03-10] MEDS: Pregabalin 25 MG CAP PO SCH ×2 (10:00→21:05)
[2022-03-10] MEDS: Sodium Bicarbonate Tab 325 MG TAB PO SCH ×3 (10:01→21:04)
[2022-03-10] MEDS: Empagliflozin 25 MG TAB PO SCH (10:01)
[2022-03-10] MEDS: Atorvastatin Calcium 10 MG TAB PO SCH (10:01)
[2022-03-10] MEDS: Fluticasone Propionate Nasal Spray 16 gm Bottle NASAL SCH (10:01)
[2022-03-10] MEDS: Oxymetazoline HCl 0.05% (30 ML BOT) NS SCH ×2 (10:01→21:06)
[2022-03-10 10:49] LABS: Anion Gap 11 mmol/L (10-20); BUN (Urea Nitrogen) 27 mg/dL (7.0-18.7); CRP (Inflammatory) 3.76 mg/dL (= or < 0.5); Calc. Creatinine Clearance 78 mL/min (70-130); Calcium 8.8 mg/dL (7.8-10.44); Carbon Dioxide 23 mmol/L (22-29); Chloride 110 mmol/L (98-107); Estimated GFR 46; Glucose 267 mg/dL (70-105); Potassium 5.2 mmol/L (3.5-5.1); Sodium 139 mmol/L (136-145)
[2022-03-10 11:01] LABS: Band 6 % (5-11); Hemoglobin 8.3 g/dL (12.0-16.0); Lymphocytes 29 % (21-51); MDiff Complete? YES; Mean Corpuscular Hemoglobin 28.2 pg (27.0-31.0); Mean Corpuscular Volume 85.6 fl (78.0-98.0); Mean Platelet Volume 9.8 fL (7.4-10.4); Monocytes 10 % (0-10); Myelocyte 2 % (0-0); Neutrophil 52 % (42-75); Nucleated RBC 2 % (0); Platelet Count 71 10x3/uL (130-400); Platelet Morphology Comment Appears Decreased; RBC Distribution Width 15.4 % (11.5-14.5); Reactive Lymphocytes 1 % (0-10); Red Blood Cell (RBC) Count 2.95 mill/uL (4.20-5.40); White Blood Cell (WBC) Count 2.4 10x3/uL (4.8-10.8)
[2022-03-10 18:30] LABS: Bilirubin Negative (Negative); Blood, Urine Trace (Negative); CAUTI Indications for Culture Pelvic or flank pain; Clarity Clear (Clear); Glucose, Urine (Dipstick) Greater than 1000 mg/dL (Negative); Ketone, Urine Negative (Negative); Leukocyte Negative Leu/uL (Negative); Nitrite Negative (Negative); Protein, Urine (Dipstick) Negative (Neg-Trace); RBC/HPF None Seen HPF (0-3); Squamous Epithelial 0-3 HPF (0-3); Urobilinogen Normal mg/dL (Less than 2); WBC/HPF 0-3 HPF (0-3)
[2022-03-10 18:41] LABS: Bacteria/HPF Rare-Few HPF (None Seen)
[2022-03-10 18:42] LABS: Urine Culture Reflex No No
[2022-03-10] MEDS: Acetaminophen 325 MG TAB PO PRN (21:04)
[2022-03-10] MEDS: Mupirocin 2% Ointment 22 GM Tube TOP SCH (21:06)
[2022-03-11] MEDS: Azithromycin 500 MG in Sodium Chloride 0.9% 250 ML 250 ML IVPB SCH (00:50)
[2022-03-11] MEDS: GUAIFENESIN SF SOLN 200 MG/10 ML UDCUP PO SCH ×5 (00:50→23:27)
[2022-03-11] MEDS: Acetaminophen 325 MG TAB PO PRN (00:50)
[2022-03-11] MEDS: HumaLOG 300 UNITS/3 ML VIAL SC PRN ×7 (01:00→23:29)
[2022-03-11] MEDS: Ipratropium Bromide 2.5 ml Neb NEB SCH ×6 (02:54→23:43)
[2022-03-11] MEDS: cefTRIAXone\\ROCEPHIN 1 GM in Sodium Chloride 0.9% 100 ML IVPB SCH (03:03)
[2022-03-11] MEDS ORDERED: NPH, Human Insulin Isophane 300 UNIT/3 ML VIAL SC SCH (09:00)
[2022-03-11] MEDS: Benzonatate 100 MG CAP PO SCH ×3 (09:57→20:50)
[2022-03-11] MEDS: Sodium Bicarbonate Tab 325 MG TAB PO SCH ×4 (09:57→20:50)
[2022-03-11] MEDS: Oxymetazoline HCl 0.05% (30 ML BOT) NS SCH ×2 (09:58→20:48)
[2022-03-11] MEDS: Pregabalin 25 MG CAP PO SCH ×2 (09:58→20:51)
[2022-03-11] MEDS: Atorvastatin Calcium 10 MG TAB PO SCH (09:58)
[2022-03-11] MEDS: Mupirocin 2% Ointment 22 GM Tube TOP SCH ×3 (09:58→20:50)
[2022-03-11] MEDS: Empagliflozin 25 MG TAB PO SCH (09:58)
[2022-03-11] MEDS: Fluticasone Propionate Nasal Spray 16 gm Bottle NASAL SCH (09:59)
[2022-03-11] MEDS: Insulin NPH Human Isophane 100 UNIT/ML (10 ML VIAL) SC SCH (11:01)
[2022-03-11] MEDS: Ondansetron ODT 4 MG TAB PO PRN (11:06)
[2022-03-11 12:06] LABS: Anion Gap 15 mmol/L (10-20); BUN (Urea Nitrogen) 34 mg/dL (7.0-18.7); CRP (Inflammatory) 4.42 mg/dL (= or < 0.5); Calc. Creatinine Clearance 74 mL/min (70-130); Calcium 9.1 mg/dL (7.8-10.44); Carbon Dioxide 18 mmol/L (22-29); Chloride 107 mmol/L (98-107); Estimated GFR 43; Glucose 222 mg/dL (70-105); Potassium 5.7 mmol/L (3.5-5.1); Sodium 134 mmol/L (136-145)
[2022-03-11] MEDS ORDERED: LOKELMA 5 GM PACKET PO SCH (13:15)
[2022-03-11 14:03] LABS: #Eosinphils 0.1 thou/uL (0.0-0.7); #Monocytes 0.3 thou/uL (0.11-0.59); #Neutrophils 1.6 thou/uL (1.40-6.50); %Eosinophils 1.8 % (0.0-10.0); %Lymphocytes 32.7 % (21.0-51.0); %Monocytes 8.8 % (0.0-10.0); %Neutrophils 56.8 % (42.0-75.0); Hemoglobin 7.6 g/dL (12.0-16.0); Mean Corpuscular Hemoglobin 28.5 pg (27.0-31.0); Mean Corpuscular Volume 86.3 fl (78.0-98.0); Mean Platelet Volume 10.8 fL (7.4-10.4); Platelet Count 61 10x3/uL (130-400); RBC Distribution Width 15.9 % (11.5-14.5); Red Blood Cell (RBC) Count 2.65 mill/uL (4.20-5.40); White Blood Cell (WBC) Count 2.9 10x3/uL (4.8-10.8)
[2022-03-11] MEDS: Sodium Chloride 0.9% 1,000 ML IV SCH (14:51)
[2022-03-11 19:07] LABS: Anion Gap 13 mmol/L (10-20); BUN (Urea Nitrogen) 36 mg/dL (7.0-18.7); Calc. Creatinine Clearance 69 mL/min (70-130); Calcium 9.5 mg/dL (7.8-10.44); Carbon Dioxide 26 mmol/L (22-29); Chloride 102 mmol/L (98-107); Estimated GFR 39; Glucose 330 mg/dL (70-105); Potassium 5.1 mmol/L (3.5-5.1); Sodium 136 mmol/L (136-145)
[2022-03-11] MEDS: hydrOXYzine 25 MG TAB PO PRN (23:37)
[2022-03-12] MEDS: cefTRIAXone\\ROCEPHIN 1 GM in Sodium Chloride 0.9% 100 ML IVPB SCH (02:08)
[2022-03-12] MEDS: Sodium Chloride 0.9% 1,000 ML IV SCH (02:08)
[2022-03-12] MEDS: Ipratropium Bromide 2.5 ml Neb NEB SCH ×6 (02:45→23:16)
[2022-03-12] MEDS: HumaLOG 300 UNITS/3 ML VIAL SC PRN ×5 (03:07→21:16)
[2022-03-12] MEDS: GUAIFENESIN SF SOLN 200 MG/10 ML UDCUP PO SCH ×3 (05:36→17:20)
[2022-03-12] MEDS ORDERED: Insulin NPH Human Isophane 100 UNIT/ML (10 ML VIAL) SC SCH (09:15)
[2022-03-12] MEDS: Sodium Bicarbonate Tab 325 MG TAB PO SCH ×4 (10:01→21:14)
[2022-03-12] MEDS: Empagliflozin 25 MG TAB PO SCH ×2 (10:01→10:18)
[2022-03-12] MEDS: Benzonatate 100 MG CAP PO SCH ×3 (10:01→21:13)
[2022-03-12] MEDS: Atorvastatin Calcium 10 MG TAB PO SCH (10:01)
[2022-03-12] MEDS: Oxymetazoline HCl 0.05% (30 ML BOT) NS SCH ×2 (10:02→21:15)
[2022-03-12] MEDS: Pregabalin 25 MG CAP PO SCH ×2 (10:02→21:14)
[2022-03-12] MEDS: Mupirocin 2% Ointment 22 GM Tube TOP SCH ×3 (10:02→21:16)
[2022-03-12] MEDS: Fluticasone Propionate Nasal Spray 16 gm Bottle NASAL SCH (10:02)
[2022-03-12 10:36] LABS: Anion Gap 15 mmol/L (10-20); BUN (Urea Nitrogen) 35 mg/dL (7.0-18.7); Calc. Creatinine Clearance 69 mL/min (70-130); Calcium 9.8 mg/dL (7.8-10.44); Carbon Dioxide 21 mmol/L (22-29); Chloride 104 mmol/L (98-107); Estimated GFR 39; Glucose 332 mg/dL (70-105); Sodium 134 mmol/L (136-145)
[2022-03-12] MEDS: Insulin NPH Human Isophane 100 UNIT/ML (10 ML VIAL) SC SCH (11:19)
[2022-03-12] MEDS ORDERED: LOKELMA 10 GM PACKET PO SCH (12:57)
[2022-03-12 13:59] LABS: Protein, Urine Random Quant 11 mg/dL (1-14); Sodium, Urine 100 mmol/L (Not Available)
[2022-03-12] MEDS ORDERED: Sodium Bicarbonate 75 MEQ in Sodium Chloride 0.45% 1,000 ML IV SCH (14:30)
[2022-03-12] MEDS: hydrOXYzine 25 MG TAB PO PRN (17:25)
[2022-03-12 17:58] LABS: Albumin 3.5 g/dL (3.5-5.0); Anion Gap 14 mmol/L (10-20); BUN (Urea Nitrogen) 38 mg/dL (7.0-18.7); BUN/Creatinine Ratio 22.35; Calc. Creatinine Clearance 71 mL/min (70-130); Calcium 10.1 mg/dL (7.8-10.44); Carbon Dioxide 26 mmol/L (22-29); Chloride 103 mmol/L (98-107); Estimated GFR 41; Glucose 178 mg/dL (70-105); Phosphorus 5.1 mg/dL (2.3-4.7); Potassium 5.3 mmol/L (3.5-5.1); Sodium 138 mmol/L (136-145)
[2022-03-12] MEDS: Mometasone 200 MCG/Formoterol 5 MCG 120 PUFF INHALER INH SCH (19:45)
[2022-03-12] MEDS: Montelukast Sodium 10 mg Tablet PO SCH (21:13)
[2022-03-12] MEDS: Insulin Glargine 30 UNITS/0.3 ML VIAL SC SCH (21:15)
[2022-03-13] MEDS: GUAIFENESIN SF SOLN 200 MG/10 ML UDCUP PO SCH ×5 (01:01→22:45)
[2022-03-13] MEDS: hydrOXYzine 25 MG TAB PO PRN ×2 (01:02→22:42)
[2022-03-13] MEDS: HumaLOG 300 UNITS/3 ML VIAL SC PRN ×4 (01:03→20:28)
[2022-03-13] MEDS: Ipratropium Bromide 2.5 ml Neb NEB SCH ×5 (02:35→23:58)
[2022-03-13] MEDS: cefTRIAXone\\ROCEPHIN 1 GM in Sodium Chloride 0.9% 100 ML IVPB SCH (03:29)
[2022-03-13] MEDS: Mometasone 200 MCG/Formoterol 5 MCG 120 PUFF INHALER INH SCH ×2 (06:40→18:27)
[2022-03-13 07:52] LABS: Hemoglobin 7.3 g/dL (12.0-16.0); Mean Corpuscular HGB CONC 33.1 g/dL (32.0-36.0); Mean Corpuscular Hemoglobin 28.6 pg (27.0-31.0); Mean Corpuscular Volume 86.5 fl (78.0-98.0); Mean Platelet Volume 9.5 fL (7.4-10.4); Platelet Count 66 10x3/uL (130-400); RBC Distribution Width 15.8 % (11.5-14.5); Red Blood Cell (RBC) Count 2.54 mill/uL (4.20-5.40); White Blood Cell (WBC) Count 2.4 10x3/uL (4.8-10.8)
[2022-03-13 08:09] LABS: Albumin 3.2 g/dL (3.5-5.0); Anion Gap 13 mmol/L (10-20); BUN (Urea Nitrogen) 39 mg/dL (7.0-18.7); BUN/Creatinine Ratio 22.16; Calc. Creatinine Clearance 68 mL/min (70-130); Calcium 9.3 mg/dL (7.8-10.44); Carbon Dioxide 26 mmol/L (22-29); Chloride 103 mmol/L (98-107); Estimated GFR 39; Glucose 196 mg/dL (70-105); Phosphorus 4.2 mg/dL (2.3-4.7); Potassium 5.1 mmol/L (3.5-5.1); Sodium 137 mmol/L (136-145)
[2022-03-13 08:40] LABS: Anisocytosis SLIGHT = 6-15 cells (100X) (0-5/hpf); Band 2 % (5-11); Eosinophils 6 % (0-10); Hypochromia SLIGHT = 6-15 cells (100X) (0-5/hpf); Lymphocytes 43 % (21-51); Metamyelocyte 2 % (0-0); Monocytes 3 % (0-10); Myelocyte 1 % (0-0); Neutrophil 43 % (42-75); Nucleated RBC 3 % (0)
[2022-03-13 08:41] LABS: MDiff Complete? YES; Platelet Morphology Comment Appears Decreased; Polychromasia SLIGHT = 2-3 cells (100X) (0-2/hpf)
[2022-03-13] MEDS ORDERED: Insulin NPH Human Isophane 100 UNIT/ML (10 ML VIAL) SC SCH (09:00)
[2022-03-13] MEDS: Atorvastatin Calcium 10 MG TAB PO SCH (09:33)
[2022-03-13] MEDS: Mupirocin 2% Ointment 22 GM Tube TOP SCH ×3 (09:33→20:25)
[2022-03-13] MEDS: Sodium Bicarbonate Tab 325 MG TAB PO SCH (09:33)
[2022-03-13] MEDS: Benzonatate 100 MG CAP PO SCH ×3 (09:33→20:21)
[2022-03-13] MEDS: Fluticasone Propionate Nasal Spray 16 gm Bottle NASAL SCH (09:33)
[2022-03-13] MEDS: Pregabalin 25 MG CAP PO SCH ×2 (09:33→20:24)
[2022-03-13] MEDS: Insulin NPH Human Isophane 100 UNIT/ML (10 ML VIAL) SC SCH (09:34)
[2022-03-13] MEDS: Oxymetazoline HCl 0.05% (30 ML BOT) NS SCH ×2 (09:34→20:22)
[2022-03-13 10:33] LABS: Iron Binding Capacity, Total 220 mcg/dL (265-497)
[2022-03-13 10:34] LABS: Iron 44 ug/dL (50-170)
[2022-03-13] MEDS: Sodium Bicarbonate 50 MEQ in Sodium Chloride 0.45% 1,000 ML IV SCH ×2 (12:45→22:47)
[2022-03-13] MEDS: Budesonide 0.5 MG/2 ML NEB NEB SCH (18:27)
[2022-03-13] MEDS: Montelukast Sodium 10 mg Tablet PO SCH (20:21)
[2022-03-13] MEDS: Insulin Glargine 30 UNITS/0.3 ML VIAL SC SCH (20:26)
[2022-03-14] MEDS: HumaLOG 300 UNITS/3 ML VIAL SC PRN ×2 (01:14→05:51)
[2022-03-14] MEDS: GUAIFENESIN SF SOLN 200 MG/10 ML UDCUP PO SCH ×4 (05:45→23:45)
[2022-03-14] MEDS: Sodium Bicarbonate 50 MEQ in Sodium Chloride 0.45% 1,000 ML IV SCH ×2 (06:03→17:18)
[2022-03-14 07:10] LABS: Albumin 3.3 g/dL (3.5-5.0); Anion Gap 15 mmol/L (10-20); BUN (Urea Nitrogen) 36 mg/dL (7.0-18.7); BUN/Creatinine Ratio 19.35; Calc. Creatinine Clearance 65 mL/min (70-130); Calcium 9.1 mg/dL (7.8-10.44); Carbon Dioxide 24 mmol/L (22-29); Chloride 100 mmol/L (98-107); Estimated GFR 36; Glucose 184 mg/dL (70-105); Phosphorus 4.5 mg/dL (2.3-4.7); Potassium 4.9 mmol/L (3.5-5.1); Sodium 134 mmol/L (136-145)
[2022-03-14] MEDS ORDERED: Iron Sucrose Complex 200 MG in Sodium Chloride 0.9% 100 ML IVPB SCH (09:00)
[2022-03-14] MEDS ORDERED: Iron, Sodium Ferric Gluconate 250 MG in Sodium Chloride 0.9% 100 ML IVPB SCH (09:00)
[2022-03-14] MEDS ORDERED: Epoetin (ESRD) 10,000 UNITS/ML VIAL SC SCH (09:00)
[2022-03-14] MEDS: Benzonatate 100 MG CAP PO SCH ×3 (09:25→20:00)
[2022-03-14] MEDS: Pregabalin 25 MG CAP PO SCH ×2 (09:26→20:01)
[2022-03-14] MEDS: Atorvastatin Calcium 10 MG TAB PO SCH (09:26)
[2022-03-14] MEDS: Insulin NPH Human Isophane 100 UNIT/ML (10 ML VIAL) SC SCH (09:38)
[2022-03-14] MEDS: Mupirocin 2% Ointment 22 GM Tube TOP SCH ×3 (09:43→20:02)
[2022-03-14] MEDS: Oxymetazoline HCl 0.05% (30 ML BOT) NS SCH ×2 (09:43→20:02)
[2022-03-14] MEDS: Fluticasone Propionate Nasal Spray 16 gm Bottle NASAL SCH (09:45)
[2022-03-14] MEDS: Mometasone 200 MCG/Formoterol 5 MCG 120 PUFF INHALER INH SCH ×2 (11:00→18:41)
[2022-03-14] MEDS: Budesonide 0.5 MG/2 ML NEB NEB SCH ×2 (11:00→18:42)
[2022-03-14] MEDS: Ipratropium Bromide 2.5 ml Neb NEB SCH ×4 (11:01→23:22)
[2022-03-14] MEDS ORDERED: SUMAtriptan Succinate 6 MG/0.5 ML VIAL SC SCH (15:15)
[2022-03-14] MEDS: hydrOXYzine 25 MG TAB PO PRN (16:36)
[2022-03-14] MEDS: Montelukast Sodium 10 mg Tablet PO SCH (20:01)
[2022-03-14] MEDS: Insulin Glargine 30 UNITS/0.3 ML VIAL SC SCH (20:03)
[2022-03-15] MEDS: hydrOXYzine 25 MG TAB PO PRN ×2 (00:03→21:12)
[2022-03-15] MEDS: HumaLOG 300 UNITS/3 ML VIAL SC PRN ×5 (00:44→21:15)
[2022-03-15] MEDS: Sodium Bicarbonate 50 MEQ in Sodium Chloride 0.45% 1,000 ML IV SCH ×3 (01:39→22:33)
[2022-03-15] MEDS: GUAIFENESIN SF SOLN 200 MG/10 ML UDCUP PO SCH ×4 (05:25→21:14)
[2022-03-15] MEDS: Budesonide 0.5 MG/2 ML NEB NEB SCH ×2 (06:21→18:57)
[2022-03-15] MEDS: Mometasone 200 MCG/Formoterol 5 MCG 120 PUFF INHALER INH SCH ×2 (06:23→18:59)
[2022-03-15] MEDS: Ipratropium Bromide 2.5 ml Neb NEB SCH ×3 (06:23→18:56)
[2022-03-15 08:10] LABS: Anion Gap 12 mmol/L (10-20); BUN (Urea Nitrogen) 44 mg/dL (7.0-18.7); Calc. Creatinine Clearance 52 mL/min (70-130); Calcium 9.3 mg/dL (7.8-10.44); Carbon Dioxide 26 mmol/L (22-29); Chloride 99 mmol/L (98-107); Estimated GFR 28; Potassium 5.1 mmol/L (3.5-5.1); Sodium 132 mmol/L (136-145)
[2022-03-15 08:16] LABS: Glucose 449 mg/dL (70-105)
[2022-03-15] MEDS: Insulin NPH Human Isophane 100 UNIT/ML (10 ML VIAL) SC SCH (08:22)
[2022-03-15] MEDS: Benzonatate 100 MG CAP PO SCH ×3 (08:25→21:12)
[2022-03-15] MEDS: Pregabalin 25 MG CAP PO SCH ×2 (08:27→21:13)
[2022-03-15] MEDS: Atorvastatin Calcium 10 MG TAB PO SCH (08:27)
[2022-03-15] MEDS ORDERED: Insulin Glargine 30 UNITS/0.3 ML VIAL SC SCH (08:30)
[2022-03-15] MEDS: Fluticasone Propionate Nasal Spray 16 gm Bottle NASAL SCH (08:33)
[2022-03-15] MEDS: Mupirocin 2% Ointment 22 GM Tube TOP SCH ×3 (08:34→21:13)
[2022-03-15] MEDS: Oxymetazoline HCl 0.05% (30 ML BOT) NS SCH ×2 (08:35→21:13)
[2022-03-15 09:17] LABS: Bacteria/HPF None Seen HPF (None Seen); Bilirubin Negative (Negative); Blood, Urine Negative (Negative); CAUTI Indications for Culture Pelvic or flank pain; Clarity Clear (Clear); Glucose, Urine (Dipstick) Greater than 1000 mg/dL (Negative); Ketone, Urine Negative (Negative); Leukocyte Negative Leu/uL (Negative); Nitrite Negative (Negative); Protein, Urine (Dipstick) Negative (Neg-Trace); RBC/HPF 0-3 HPF (0-3); Specific Gravity, Urine 1.011 (1.002-1.036); Squamous Epithelial 0-3 HPF (0-3); Urobilinogen Normal mg/dL (Less than 2); WBC/HPF 0-3 HPF (0-3)
[2022-03-15 09:28] LABS: Hemoglobin 6.7 g/dL (12.0-16.0); Mean Corpuscular HGB CONC 34.7 g/dL (32.0-36.0); Mean Corpuscular Hemoglobin 29.9 pg (27.0-31.0); Mean Corpuscular Volume 86.3 fl (78.0-98.0); Mean Platelet Volume 10.4 fL (7.4-10.4); Platelet Count 62 10x3/uL (130-400); RBC Distribution Width 16.7 % (11.5-14.5); Red Blood Cell (RBC) Count 2.24 mill/uL (4.20-5.40); White Blood Cell (WBC) Count 1.8 10x3/uL (4.8-10.8)
[2022-03-15 09:30] LABS: Urine Culture Reflex No No
[2022-03-15 09:36] LABS: Anisocytosis MODERATE=16-30 cells (100X) (0-5/hpf); Band 4 % (5-11); Lymphocytes 40 % (21-51); MDiff Complete? YES; Metamyelocyte 2 % (0-0); Monocytes 10 % (0-10); Neutrophil 42 % (42-75); Ovalocytes SLIGHT = 2-5 cells (100X) (0-1/hpf); Platelet Morphology Comment Appears Decreased; Polychromasia SLIGHT = 2-3 cells (100X) (0-2/hpf); Reactive Lymphocytes 2 % (0-10); Tear Drops SLIGHT = 2-5 cells (100X) (0-1/hpf)
[2022-03-15 09:41] LABS: Creatinine, Urine 26.28 mg/dL (47-110)
[2022-03-15] MEDS ORDERED: Albumin 25% 25 GM/100 ML BOT IVPB SCH (13:00)
[2022-03-15] MEDS: Insulin Glargine 30 UNITS/0.3 ML VIAL SC SCH (21:12)
[2022-03-15] MEDS: Montelukast Sodium 10 mg Tablet PO SCH (21:12)
[2022-03-15] MEDS: Acetaminophen 325 MG TAB PO PRN (21:14)
[2022-03-16] MEDS: Ipratropium Bromide 2.5 ml Neb NEB SCH ×5 (00:02→23:28)
[2022-03-16 05:16] LABS: Hemoglobin 8.7 g/dL (12.0-16.0); Mean Corpuscular HGB CONC 34.7 g/dL (32.0-36.0); Mean Corpuscular Volume 86.5 fl (78.0-98.0); Platelet Count 58 10x3/uL (130-400); RBC Distribution Width 16.4 % (11.5-14.5); Red Blood Cell (RBC) Count 2.91 mill/uL (4.20-5.40)
[2022-03-16 05:28] LABS: Anion Gap 14 mmol/L (10-20); BUN (Urea Nitrogen) 39 mg/dL (7.0-18.7); Calc. Creatinine Clearance 62 mL/min (70-130); Calcium 9.4 mg/dL (7.8-10.44); Carbon Dioxide 21 mmol/L (22-29); Chloride 106 mmol/L (98-107); Estimated GFR 35; Glucose 162 mg/dL (70-105); Potassium 4.7 mmol/L (3.5-5.1); Sodium 136 mmol/L (136-145)
[2022-03-16] MEDS: Sodium Bicarbonate 50 MEQ in Sodium Chloride 0.45% 1,000 ML IV SCH ×2 (05:35→15:34)
[2022-03-16] MEDS: GUAIFENESIN SF SOLN 200 MG/10 ML UDCUP PO SCH ×4 (05:35→20:20)
[2022-03-16] MEDS: HumaLOG 300 UNITS/3 ML VIAL SC PRN ×4 (05:36→23:24)
[2022-03-16 06:05] LABS: Band 2 % (5-11); Eosinophils 2 % (0-10); Lymphocytes 48 % (21-51); MDiff Complete? YES; Monocytes 3 % (0-10); Neutrophil 45 % (42-75); Platelet Morphology Comment Appears Decreased; White Blood Cell (WBC) Count 2.8 10x3/uL (4.8-10.8)
[2022-03-16] MEDS: Mometasone 200 MCG/Formoterol 5 MCG 120 PUFF INHALER INH SCH ×2 (07:01→18:06)
[2022-03-16] MEDS: Budesonide 0.5 MG/2 ML NEB NEB SCH ×2 (07:02→17:57)
[2022-03-16] MEDS: Insulin NPH Human Isophane 100 UNIT/ML (10 ML VIAL) SC SCH (08:21)
[2022-03-16] MEDS: Pregabalin 25 MG CAP PO SCH ×2 (08:21→20:19)
[2022-03-16] MEDS: Benzonatate 100 MG CAP PO SCH ×3 (08:21→20:19)
[2022-03-16] MEDS: Fluticasone Propionate Nasal Spray 16 gm Bottle NASAL SCH (08:21)
[2022-03-16] MEDS: Atorvastatin Calcium 10 MG TAB PO SCH (08:21)
[2022-03-16] MEDS: Oxymetazoline HCl 0.05% (30 ML BOT) NS SCH ×2 (08:22→20:20)
[2022-03-16] MEDS: Mupirocin 2% Ointment 22 GM Tube TOP SCH ×3 (08:22→20:20)
[2022-03-16 08:33] LABS: Glucose 95 mg/dL (70-105)
[2022-03-16 13:13] LABS: Reticulocyte Count 6.5 % (0.5-1.5)
[2022-03-16 13:21] LABS: Bilirubin, Total 1.2 mg/dL (0.2-1.2); Glucose 252 mg/dL (70-105)
[2022-03-16 17:52] LABS: Glucose 173 mg/dL (70-105)
[2022-03-16] MEDS: hydrOXYzine 25 MG TAB PO PRN (20:19)
[2022-03-16] MEDS: Montelukast Sodium 10 mg Tablet PO SCH (20:19)
[2022-03-16] MEDS: Insulin Glargine 30 UNITS/0.3 ML VIAL SC SCH (20:21)
[2022-03-16 23:16] LABS: Glucose 383 mg/dL (70-105)
[2022-03-17 00:05] VITALS: TEMP 98.1
[2022-03-17 01:55] LABS: Glucose 344 mg/dL (70-105)
[2022-03-17] MEDS: GUAIFENESIN SF SOLN 200 MG/10 ML UDCUP PO SCH ×2 (05:43→11:03)
[2022-03-17] MEDS: Sodium Bicarbonate 50 MEQ in Sodium Chloride 0.45% 1,000 ML IV SCH (05:43)
[2022-03-17] MEDS: Mometasone 200 MCG/Formoterol 5 MCG 120 PUFF INHALER INH SCH (07:02)
[2022-03-17] MEDS: Ipratropium Bromide 2.5 ml Neb NEB SCH (07:02)
[2022-03-17] MEDS: Budesonide 0.5 MG/2 ML NEB NEB SCH (07:02)
[2022-03-17 08:35] LABS: #Eosinphils 0.1 thou/uL (0.0-0.7); #Monocytes 0.2 thou/uL (0.11-0.59); #Neutrophils 1.4 thou/uL (1.40-6.50); %Basophils 0.6 % (0.0-1.0); %Eosinophils 3.4 % (0.0-10.0); %Lymphocytes 35.4 % (21.0-51.0); %Monocytes 8.7 % (0.0-10.0); %Neutrophils 51.8 % (42.0-75.0); Hemoglobin 8.1 g/dL (12.0-16.0); Mean Corpuscular HGB CONC 33.3 g/dL (32.0-36.0); Mean Corpuscular Hemoglobin 29.1 pg (27.0-31.0); Mean Corpuscular Volume 87.4 fl (78.0-98.0); Mean Platelet Volume 10.8 fL (7.4-10.4); Platelet Count 59 10x3/uL (130-400); Red Blood Cell (RBC) Count 2.79 mill/uL (4.20-5.40); White Blood Cell (WBC) Count 2.7 10x3/uL (4.8-10.8)
[2022-03-17 08:44] LABS: Glucose 325 mg/dL (70-105)
[2022-03-17 08:46] VITALS: BP 123/85
[2022-03-17 08:48] LABS: Albumin 3.3 g/dL (3.5-5.0); Anion Gap 13 mmol/L (10-20); BUN (Urea Nitrogen) 45 mg/dL (7.0-18.7); BUN/Creatinine Ratio 20.09; Calc. Creatinine Clearance 54 mL/min (70-130); Calcium 9.1 mg/dL (7.8-10.44); Carbon Dioxide 23 mmol/L (22-29); Chloride 103 mmol/L (98-107); Estimated GFR 29; Glucose 324 mg/dL (70-105); Phosphorus 4.6 mg/dL (2.3-4.7); Potassium 5.2 mmol/L (3.5-5.1); Sodium 134 mmol/L (136-145)
[2022-03-17] MEDS: Atorvastatin Calcium 10 MG TAB PO SCH (08:53)
[2022-03-17] MEDS: Pregabalin 25 MG CAP PO SCH (08:53)
[2022-03-17] MEDS: Benzonatate 100 MG CAP PO SCH (08:53)
[2022-03-17] MEDS: Oxymetazoline HCl 0.05% (30 ML BOT) NS SCH (08:54)
[2022-03-17] MEDS: Fluticasone Propionate Nasal Spray 16 gm Bottle NASAL SCH (08:54)
[2022-03-17] MEDS: Mupirocin 2% Ointment 22 GM Tube TOP SCH (08:54)
[2022-03-17] MEDS: Insulin NPH Human Isophane 100 UNIT/ML (10 ML VIAL) SC SCH (08:54)
[2022-03-17] MEDS: HumaLOG 300 UNITS/3 ML VIAL SC PRN ×2 (08:56→12:27)
[2022-03-17 09:13] LABS: Glucose 318 mg/dL (70-105)
[2022-03-17] MEDS ORDERED: LOKELMA 10 GM PACKET PO SCH (10:00)
[2022-03-17 11:18] LABS: Glucose 302 mg/dL (70-105)
== END 2022-03-17 13:15 | disposition home or self-care (01) | DRG 871 ==
LOC: ERS 20:47 → 2SW 03-07 00:13 → CCU 03-07 10:40 → T4-B 03-08 08:42
PROVIDERS: ADMIT Internal Medicine; ATTEND Internal Medicine
PROC: 3E03329 Introduction of Other Anti-infective into Peripheral Vein, Percutaneous Approach (ICD-10-PCS; principal; 2022-03-07)
PROC: 30233N1 Transfusion of Nonautologous Red Blood Cells into Peripheral Vein, Percutaneous Approach (ICD-10-PCS; 2022-03-08)
DX: A41.9 Sepsis, unspecified organism (principal); Z20.822 Contact with and (suspected) exposure to COVID-19; J18.9 Pneumonia, unspecified organism; J96.01 Acute respiratory failure with hypoxia; E87.1 Hypo-osmolality and hyponatremia; E87.20 Acidosis, unspecified; D61.818 Other pancytopenia; J45.901 Unspecified asthma with (acute) exacerbation; N17.9 Acute kidney failure, unspecified; N13.39 Other hydronephrosis; D50.9 Iron deficiency anemia, unspecified; D63.1 Anemia in chronic kidney disease; E87.5 Hyperkalemia; N18.30 Chronic kidney disease, stage 3 unspecified; E88.09 Other disorders of plasma-protein metabolism, not elsewhere classified; E10.22 Type 1 diabetes mellitus with diabetic chronic kidney disease; I12.9 Hypertensive chronic kidney disease with stage 1 through stage 4 chronic kidney disease, or unspecified chronic kidney disease; R62.50 Unspecified lack of expected normal physiological development in childhood; E10.65 Type 1 diabetes mellitus with hyperglycemia; E86.9 Volume depletion, unspecified; R13.10 Dysphagia, unspecified; Z88.1 Allergy status to other antibiotic agents; Z88.2 Allergy status to sulfonamides; Z88.8 Allergy status to other drugs, medicaments and biological substances; Z79.899 Other long term (current) drug therapy; Z79.4 Long term (current) use of insulin
CPT/HCPCS: 36415; 36416; 36430; 71045; 71250; 76770; 80048; 80053; 80069; 81001; 81003; 81015; 82010; 82040; 82247; 82550; 82570; 82728; 82805; 82947; 83036; 83540; 83550; 83605; 83615; 83690; 83735; 83880; 84145; 84156; 84300; 84484; 84703; 85025; 85027; 85046; 85060; 85610; 85730; 86140; 86850; 86870; 86880; 86900; 86901; 86922; 87040; 87070; 87205; 87449; 87811; 87899; 93005; 93010; 94640; 94760; 96361; 96365; 96375; J0456; J0692; J0696; J1100; J1815; J2405; J2916; J3030; J3370-JW; J3490; J7050; J7611; J7626; P9016; Q0162; Q4081

== ENCOUNTER 2022-04-06 14:22 | Inpatient (IN) | payer OTHER ==
[2022-04-06 16:25] LABS: #Lymphocytes 0.6 thou/uL (1.20-3.40); #Monocytes 0.2 thou/uL (0.11-0.59); #Neutrophils 1.8 thou/uL (1.40-6.50); %Basophils 0.7 % (0.0-1.0); %Eosinophils 1.4 % (0.0-10.0); %Lymphocytes 22.3 % (21.0-51.0); %Monocytes 5.9 % (0.0-10.0); %Neutrophils 69.7 % (42.0-75.0); Hemoglobin 6.9 g/dL (12.0-16.0); Mean Corpuscular HGB CONC 33.9 g/dL (32.0-36.0); Mean Corpuscular Hemoglobin 32.7 pg (27.0-31.0); Mean Corpuscular Volume 96.3 fl (78.0-98.0); Mean Platelet Volume 10.4 fL (7.4-10.4); Platelet Count 43 10x3/uL (130-400); RBC Distribution Width 17.7 % (11.5-14.5); Red Blood Cell (RBC) Count 2.12 mill/uL (4.20-5.40); White Blood Cell (WBC) Count 2.6 10x3/uL (4.8-10.8)
[2022-04-06 16:47] LABS: ALT (SGPT) Less than 7 U/L (8-55); AST (SGOT) 10 U/L (5-34); Albumin 4.2 g/dL (3.5-5.0); Alkaline Phosphatase 61 U/L (40-110); Anion Gap 15 mmol/L (10-20); BUN (Urea Nitrogen) 28 mg/dL (7.0-18.7); Bilirubin, Total 1.6 mg/dL (0.2-1.2); Calc. Creatinine Clearance 0 mL/min (70-130); Calcium 9.5 mg/dL (7.8-10.44); Carbon Dioxide 18 mmol/L (22-29); Chloride 107 mmol/L (98-107); Estimated GFR 37; Globulin 2.3 g/dL (2.4-3.5); Glucose 367 mg/dL (70-105); Protein, Total 6.5 g/dL (6.0-8.3); Sodium 134 mmol/L (136-145)
[2022-04-06] MEDS ORDERED: Ipratropium/Albuterol 3 ML NEB ONE ×2 (17:16→19:04)
[2022-04-06] MEDS ORDERED: Cefepime 2 GM VIAL ONE (17:24)
[2022-04-06 17:56] LABS: Actual Bicarbonate (HCO3v) 22 mEq/L (22-28); Base Excess -4.3 mEq/L (-2.0 to +3.0); Calcium, Ionized (venous) 1.19 mmol/L (1.16-1.32); Chloride (VBG) 106 mmol/L (98-106); Hemoglobin (Hb) 6.8 g/dL (11.7-15.5); Potassium (VBG) 5.42 mmol/L (3.70-5.30); Sodium 134.5 mmol/L (133-146); pH (venous) 7.32 (7.32-7.43)
[2022-04-06] MEDS ORDERED: VANCOMYCIN 2 GRAM/500 ML BAG 2 GM in Premix Bag 1 BAG IVPB SCH (18:15)
[2022-04-06 18:48] LABS: BHCG - Serum Negative (NEGATIVE); Pregs Control Background? CLEAR/WHITE (CLR/WHITE); Pregs Control Bar Appear? YES (CONTROL BAR)
[2022-04-06 18:53] LABS: PTT 31.6 sec (22.9-36.1)
[2022-04-06 19:02] LABS: Anion Gap 15 mmol/L (10-20); BUN (Urea Nitrogen) 28 mg/dL (7.0-18.7); Calc. Creatinine Clearance 0 mL/min (70-130); Calcium 9.2 mg/dL (7.8-10.44); Carbon Dioxide 18 mmol/L (22-29); Chloride 107 mmol/L (98-107); Estimated GFR 36; Glucose 370 mg/dL (70-105); Sodium 134 mmol/L (136-145)
[2022-04-06 19:10] LABS: Potassium 6.1 mmol/L (3.5-5.1)
[2022-04-06 19:14] LABS: SARS-CoV-2 NAA Rapid Test Not Detected (NotDetected)
[2022-04-06 19:16] LABS: Bacteria/HPF None Seen HPF (None Seen); Bilirubin Negative (Negative); Blood, Urine 2+ (Negative); Clarity Clear (Clear); Glucose, Urine (Dipstick) Greater than 1000 mg/dL (Negative); Ketone, Urine Negative (Negative); Leukocyte Negative Leu/uL (Negative); Nitrite Negative (Negative); Protein, Urine (Dipstick) 70 mg/dL (Neg-Trace); Specific Gravity, Urine 1.011 (1.002-1.036); Urobilinogen Normal mg/dL (Less than 2); WBC/HPF 0-3 HPF (0-3)
[2022-04-06] MEDS ORDERED: CALCIUM GLUC 1 GM/NS 50 ML BAG ONE (19:28)
[2022-04-06] MEDS ORDERED: Sodium Bicarb 50 MEQ/50 ML VIAL ONE (19:28)
[2022-04-06] MEDS ORDERED: INSULIN REGULAR IN 0.9 % NACL 100 UNIT/100 ML BAG ONE (19:28)
[2022-04-06] MEDS ORDERED: Dextrose 50% Abboject 50 ML SYRINGE SLOW IVP SCH (19:30)
[2022-04-06] MEDS ORDERED: Ondansetron ODT 4 MG TAB PO PRN (19:54)
[2022-04-06] MEDS ORDERED: Acetaminophen 650 MG Suppository PR PRN (19:54)
[2022-04-06] MEDS ORDERED: HumaLOG 300 UNITS/3 ML VIAL SC PRN (22:05)
[2022-04-06] MEDS ORDERED: Dextrose 50% Abboject 50 ML SYRINGE SLOW IVP PRN (22:05)
[2022-04-06] MEDS ORDERED: Dextrose 5% in Water 1,000 ML IV PRN (22:05)
[2022-04-06] MEDS ORDERED: Furosemide 20 MG/2 ML VIAL SLOW IVP SCH (22:30)
[2022-04-06 23:50] VITALS: BMI 36.6
[2022-04-07] MEDS ORDERED: Ipratropium/Albuterol 3 ML NEB NEB PRN (00:07)
[2022-04-07] MEDS ORDERED: methylPREDNISolone Sod Succ/PF 125 MG/2 ML VIAL IVP SCH (00:15)
[2022-04-07 00:30] LABS: Anion Gap 12 mmol/L (10-20); BUN (Urea Nitrogen) 28 mg/dL (7.0-18.7); Calc. Creatinine Clearance 69 mL/min (70-130); Calcium 9.2 mg/dL (7.8-10.44); Carbon Dioxide 23 mmol/L (22-29); Chloride 107 mmol/L (98-107); Estimated GFR 40; Glucose 257 mg/dL (70-105); Potassium 4.8 mmol/L (3.5-5.1); Sodium 137 mmol/L (136-145)
[2022-04-07] MEDS: Doxycycline 100 MG in Sodium Chloride 0.9% 100 ML IVPB SCH ×3 (04:29→19:33)
[2022-04-07] MEDS: Cefepime 2 GM in Sodium Chloride 0.9% 100 ML IVPB SCH ×2 (06:01→20:41)
[2022-04-07 07:21] LABS: Hemoglobin 7.5 g/dL (12.0-16.0); Mean Corpuscular HGB CONC 32.6 g/dL (32.0-36.0); Mean Corpuscular Hemoglobin 30.9 pg (27.0-31.0); Mean Corpuscular Volume 94.8 fl (78.0-98.0); RBC Distribution Width 19.3 % (11.5-14.5); Red Blood Cell (RBC) Count 2.41 mill/uL (4.20-5.40)
[2022-04-07 07:34] LABS: Anion Gap 16 mmol/L (10-20); BUN (Urea Nitrogen) 36 mg/dL (7.0-18.7); Calc. Creatinine Clearance 59 mL/min (70-130); Carbon Dioxide 20 mmol/L (22-29); Chloride 102 mmol/L (98-107); Estimated GFR 33; Potassium 5.7 mmol/L (3.5-5.1); Sodium 132 mmol/L (136-145)
[2022-04-07 07:45] LABS: Glucose 528 mg/dL (70-105)
[2022-04-07 08:02] LABS: Anisocytosis SLIGHT = 6-15 cells (100X) (0-5/hpf); Hypochromia SLIGHT = 6-15 cells (100X) (0-5/hpf); Lymphocytes 16 % (21-51); MDiff Complete? YES; Mean Platelet Volume 10.9 fL (7.4-10.4); Monocytes 2 % (0-10); Neutrophil 82 % (42-75); Platelet Count 43 10x3/uL (130-400); Platelet Morphology Comment Appears Decreased; Polychromasia SLIGHT = 2-3 cells (100X) (0-2/hpf)
[2022-04-07] MEDS ORDERED: Insulin Regular 300 UNITS/3 ML VIAL SC PRN (08:34)
[2022-04-07] MEDS ORDERED: NPH, Human Insulin Isophane 300 UNIT/3 ML VIAL SC SCH (09:00)
[2022-04-07] MEDS ORDERED: Insulin NPH Human Isophane 100 UNIT/ML (10 ML VIAL) SC SCH ×3 (09:00→10:15)
[2022-04-07 09:59] LABS: Anion Gap 14 mmol/L (10-20); BUN (Urea Nitrogen) 37 mg/dL (7.0-18.7); Calc. Creatinine Clearance 58 mL/min (70-130); Calcium 9.1 mg/dL (7.8-10.44); Carbon Dioxide 22 mmol/L (22-29); Chloride 102 mmol/L (98-107); Estimated GFR 32; Potassium 5.4 mmol/L (3.5-5.1); Sodium 133 mmol/L (136-145)
[2022-04-07 10:03] LABS: Glucose 506 mg/dL (70-105)
[2022-04-07] MEDS: HumaLOG 300 UNITS/3 ML VIAL SC PRN ×3 (10:15→16:40)
[2022-04-07] MEDS: Ondansetron PF 4 MG/2 ML Vial IVP PRN (13:32)
[2022-04-07] MEDS: Albumin 25% 25 GM/100 ML BOT IVPB SCH ×2 (13:33→21:47)
[2022-04-07] MEDS ORDERED: methylPREDNISolone Sod Succ 40 MG VIAL IVP SCH (14:00)
[2022-04-07 14:35] LABS: Anion Gap 19 mmol/L (10-20); BUN (Urea Nitrogen) 39 mg/dL (7.0-18.7); Calc. Creatinine Clearance 54 mL/min (70-130); Calcium 9.3 mg/dL (7.8-10.44); Carbon Dioxide 20 mmol/L (22-29); Chloride 102 mmol/L (98-107); Estimated GFR 29; Potassium 5.1 mmol/L (3.5-5.1); Sodium 136 mmol/L (136-145)
[2022-04-07 14:48] LABS: Glucose 521 mg/dL (70-105)
[2022-04-07] MEDS: Ipratropium/Albuterol 3 ML NEB NEB SCH ×2 (18:47→22:21)
[2022-04-07] MEDS: Budesonide 0.5 MG/2 ML NEB NEB SCH (18:49)
[2022-04-07] MEDS: Insulin NPH Human Isophane 100 UNIT/ML (10 ML VIAL) SC SCH (20:41)
[2022-04-07 22:03] LABS: Anion Gap 18 mmol/L (10-20); BUN (Urea Nitrogen) 45 mg/dL (7.0-18.7); Calc. Creatinine Clearance 57 mL/min (70-130); Calcium 8.8 mg/dL (7.8-10.44); Carbon Dioxide 19 mmol/L (22-29); Chloride 104 mmol/L (98-107); Estimated GFR 32; Glucose 389 mg/dL (70-105); Potassium 4.9 mmol/L (3.5-5.1); Sodium 136 mmol/L (136-145)
[2022-04-08] MEDS: Ipratropium/Albuterol 3 ML NEB NEB SCH ×6 (01:50→22:56)
[2022-04-08 05:19] LABS: ALT (SGPT) 10 U/L (8-55); AST (SGOT) 11 U/L (5-34); Albumin 4.2 g/dL (3.5-5.0); Alkaline Phosphatase 53 U/L (40-110); Anion Gap 14 mmol/L (10-20); BUN (Urea Nitrogen) 46 mg/dL (7.0-18.7); Calc. Creatinine Clearance 57 mL/min (70-130); Calcium 8.6 mg/dL (7.8-10.44); Carbon Dioxide 21 mmol/L (22-29); Chloride 104 mmol/L (98-107); Estimated GFR 32; Globulin 1.9 g/dL (2.4-3.5); Potassium 4.4 mmol/L (3.5-5.1); Protein, Total 6.1 g/dL (6.0-8.3); Sodium 135 mmol/L (136-145)
[2022-04-08 05:22] LABS: Glucose 444 mg/dL (70-105)
[2022-04-08 05:45] LABS: Band 10 % (5-11); Hemoglobin 6.5 g/dL (12.0-16.0); Hypochromia SLIGHT = 6-15 cells (100X) (0-5/hpf); Lymphocytes 28 % (21-51); MDiff Complete? YES; Mean Corpuscular HGB CONC 33.2 g/dL (32.0-36.0); Mean Corpuscular Hemoglobin 31.7 pg (27.0-31.0); Mean Corpuscular Volume 95.5 fl (78.0-98.0); Mean Platelet Volume 11.6 fL (7.4-10.4); Monocytes 6 % (0-10); Neutrophil 56 % (42-75); Nucleated RBC 1 % (0); Platelet Count 40 10x3/uL (130-400); Platelet Morphology Comment Appears Decreased; RBC Distribution Width 19.6 % (11.5-14.5); Red Blood Cell (RBC) Count 2.03 mill/uL (4.20-5.40)
[2022-04-08] MEDS: HumaLOG 300 UNITS/3 ML VIAL SC PRN (05:47)
[2022-04-08] MEDS: Albumin 25% 25 GM/100 ML BOT IVPB SCH ×2 (05:47→16:23)
[2022-04-08] MEDS: Budesonide 0.5 MG/2 ML NEB NEB SCH ×2 (06:44→18:51)
[2022-04-08] MEDS ORDERED: methylPREDNISolone Sod Succ 40 MG VIAL IVP SCH (09:00)
[2022-04-08] MEDS: Doxycycline 100 MG in Sodium Chloride 0.9% 100 ML IVPB SCH ×2 (11:02→22:35)
[2022-04-08] MEDS: Acetaminophen 325 MG TAB PO PRN (11:03)
[2022-04-08] MEDS: predniSONE 20 MG TAB PO SCH (11:03)
[2022-04-08] MEDS: Insulin NPH Human Isophane 100 UNIT/ML (10 ML VIAL) SC SCH (11:04)
[2022-04-08 13:34] LABS: Hemoglobin 6.1 g/dL (12.0-16.0); Mean Corpuscular HGB CONC 33.1 g/dL (32.0-36.0); Mean Corpuscular Hemoglobin 31.9 pg (27.0-31.0); Mean Corpuscular Volume 96.3 fl (78.0-98.0); Mean Platelet Volume 11.3 fL (7.4-10.4); Platelet Count 37 10x3/uL (130-400); RBC Distribution Width 19.7 % (11.5-14.5); Red Blood Cell (RBC) Count 1.92 mill/uL (4.20-5.40)
[2022-04-08 13:43] LABS: Anion Gap 13 mmol/L (10-20); BUN (Urea Nitrogen) 46 mg/dL (7.0-18.7); Calc. Creatinine Clearance 55 mL/min (70-130); Calcium 8.5 mg/dL (7.8-10.44); Carbon Dioxide 21 mmol/L (22-29); Chloride 103 mmol/L (98-107); Estimated GFR 30; Potassium 4.2 mmol/L (3.5-5.1); Sodium 133 mmol/L (136-145)
[2022-04-08 13:49] LABS: Glucose 592 mg/dL (70-105)
[2022-04-08 13:55] LABS: MDiff Complete? YES; White Blood Cell (WBC) Count 2.2 10x3/uL (4.8-10.8)
[2022-04-08 13:56] LABS: Anisocytosis SLIGHT = 6-15 cells (100X) (0-5/hpf); Band 4 % (5-11); Lymphocytes 30 % (21-51); Monocytes 7 % (0-10); Neutrophil 59 % (42-75); Nucleated RBC 5 % (0); Ovalocytes SLIGHT = 2-5 cells (100X) (0-1/hpf); Platelet Morphology Comment Appears Decreased; Polychromasia MODERATE = 3-4 cells (100X) (0-2/hpf); Tear Drops SLIGHT = 2-5 cells (100X) (0-1/hpf)
[2022-04-08] MEDS ORDERED: Insulin Regular 300 UNITS/3 ML VIAL SC SCH ×2 (14:15→18:30)
[2022-04-08] MEDS: Cefepime 2 GM in Sodium Chloride 0.9% 100 ML IVPB SCH ×3 (14:44→22:28)
[2022-04-08 17:25] LABS: Glucose 718 mg/dL (70-105)
[2022-04-08 18:32] LABS: Anion Gap 17 mmol/L (10-20); BUN (Urea Nitrogen) 49 mg/dL (7.0-18.7); Calc. Creatinine Clearance 51 mL/min (70-130); Calcium 8.5 mg/dL (7.8-10.44); Carbon Dioxide 18 mmol/L (22-29); Chloride 100 mmol/L (98-107); Estimated GFR 27; Sodium 130 mmol/L (136-145)
[2022-04-08 18:35] LABS: Glucose 730 mg/dL (70-105)
[2022-04-08] MEDS ORDERED: NS 0.9% w/ 20 MEQ KCL 1,000 ML IV PRN ×2 (20:22)
[2022-04-08] MEDS ORDERED: Sodium Chloride 0.9% 1,000 ML IV PRN ×4 (20:22)
[2022-04-08] MEDS ORDERED: D5 1/2 NS w/20 mEq KCL 1,000 ML IV PRN (20:22)
[2022-04-08] MEDS ORDERED: Dextrose 50% Abboject 50 ML SYRINGE SLOW IVP PRN (20:22)
[2022-04-08] MEDS ORDERED: Electrolyte Replacement Protocol 1 EACH IVPB PRN (20:22)
[2022-04-08] MEDS ORDERED: Dextrose 5 %-0.45 % NaCl 1,000 ML IV PRN (20:22)
[2022-04-08] MEDS ORDERED: HUMULIN R 100 UNITS in Sodium Chloride 0.9% 100 ML IVPB SCH (20:30)
[2022-04-08 21:26] LABS: Anion Gap 19 mmol/L (10-20); BUN (Urea Nitrogen) 54 mg/dL (7.0-18.7); Calc. Creatinine Clearance 51 mL/min (70-130); Calcium 8.9 mg/dL (7.8-10.44); Carbon Dioxide 17 mmol/L (22-29); Chloride 100 mmol/L (98-107); Estimated GFR 27; Sodium 131 mmol/L (136-145)
[2022-04-08 21:31] LABS: Glucose 723 mg/dL (70-105)
[2022-04-08] MEDS: Insulin Glargine 30 UNITS/0.3 ML VIAL SC SCH (22:33)
[2022-04-09] MEDS: Acetaminophen 325 MG TAB PO PRN (00:21)
[2022-04-09 01:45] LABS: Anion Gap 14 mmol/L (10-20); BUN (Urea Nitrogen) 50 mg/dL (7.0-18.7); Calc. Creatinine Clearance 62 mL/min (70-130); Calcium 8.9 mg/dL (7.8-10.44); Carbon Dioxide 21 mmol/L (22-29); Chloride 107 mmol/L (98-107); Estimated GFR 35; Glucose 219 mg/dL (70-105); Potassium 4.2 mmol/L (3.5-5.1); Sodium 138 mmol/L (136-145)
[2022-04-09] MEDS: Ipratropium/Albuterol 3 ML NEB NEB SCH ×6 (02:46→22:01)
[2022-04-09 04:21] LABS: #Lymphocytes 0.8 thou/uL (1.20-3.40); #Monocytes 0.2 thou/uL (0.11-0.59); #Neutrophils 1.2 thou/uL (1.40-6.50); %Basophils 0.7 % (0.0-1.0); %Eosinophils 1.1 % (0.0-10.0); %Lymphocytes 36.7 % (21.0-51.0); %Monocytes 6.9 % (0.0-10.0); %Neutrophils 54.6 % (42.0-75.0); Hemoglobin 5.8 g/dL (12.0-16.0); Mean Corpuscular HGB CONC 33.5 g/dL (32.0-36.0); Mean Corpuscular Hemoglobin 31.8 pg (27.0-31.0); Mean Platelet Volume 10.6 fL (7.4-10.4); Platelet Count 35 10x3/uL (130-400); RBC Distribution Width 19.5 % (11.5-14.5); Red Blood Cell (RBC) Count 1.83 mill/uL (4.20-5.40); White Blood Cell (WBC) Count 2.1 10x3/uL (4.8-10.8)
[2022-04-09 04:36] LABS: Anion Gap 15 mmol/L (10-20); BUN (Urea Nitrogen) 48 mg/dL (7.0-18.7); Calc. Creatinine Clearance 68 mL/min (70-130); Calcium 8.6 mg/dL (7.8-10.44); Carbon Dioxide 17 mmol/L (22-29); Chloride 110 mmol/L (98-107); Estimated GFR 39; Glucose 104 mg/dL (70-105); Potassium 4.1 mmol/L (3.5-5.1); Sodium 138 mmol/L (136-145)
[2022-04-09] MEDS ORDERED: Insulin Glargine 30 UNITS/0.3 ML VIAL SC SCH (04:45)
[2022-04-09] MEDS: Budesonide 0.5 MG/2 ML NEB NEB SCH ×2 (07:30→18:44)
[2022-04-09 09:14] LABS: Complement-C4 14.3 mg/dL (15-57)
[2022-04-09] MEDS: Doxycycline 100 MG in Sodium Chloride 0.9% 100 ML IVPB SCH ×2 (09:18→21:29)
[2022-04-09] MEDS: Cefepime 2 GM in Sodium Chloride 0.9% 100 ML IVPB SCH (09:18)
[2022-04-09] MEDS: Insulin Glargine 30 UNITS/0.3 ML VIAL SC SCH ×3 (09:19→20:31)
[2022-04-09] MEDS: predniSONE 20 MG TAB PO SCH (09:19)
[2022-04-09] MEDS: Sodium Bicarbonate Tab 325 MG TAB PO SCH ×3 (09:31→20:30)
[2022-04-09 10:24] LABS: Band 4 % (5-11); Lymphocytes 47 % (21-51); Monocytes 1 % (0-10); Nucleated RBC 2 % (0); Polychromasia SLIGHT = 2-3 cells (100X) (0-2/hpf)
[2022-04-09 10:25] LABS: Tear Drops SLIGHT = 2-5 cells (100X) (0-1/hpf)
[2022-04-09 10:28] LABS: Neutrophil 48 % (42-75)
[2022-04-09] MEDS: HumaLOG 300 UNITS/3 ML VIAL SC PRN ×3 (12:01→20:32)
[2022-04-09] MEDS ORDERED: Doxycycline 100 MG VIAL ONE (20:10)
[2022-04-09 20:36] LABS: Bilirubin Negative (Negative); Blood, Urine Trace (Negative); CAUTI Indications for Culture Dysuria,urgency,freq; Clarity Clear (Clear); Glucose, Urine (Dipstick) Greater than 1000 mg/dL (Negative); Ketone, Urine Negative (Negative); Leukocyte Negative Leu/uL (Negative); Nitrite Negative (Negative); Protein, Urine (Dipstick) 50 mg/dL (Neg-Trace); RBC/HPF 0-3 HPF (0-3); Specific Gravity, Urine 1.011 (1.002-1.036); Squamous Epithelial 0-3 HPF (0-3); Urobilinogen Normal mg/dL (Less than 2); WBC/HPF 0-3 HPF (0-3)
[2022-04-09 20:40] LABS: Bacteria/HPF Rare-Few HPF (None Seen)
[2022-04-09 20:41] LABS: Urine Culture Reflex No No
[2022-04-09] MEDS: Cefepime 1 GM in Sodium Chloride 0.9% 100 ML IVPB SCH (21:15)
[2022-04-09] MEDS: methylPREDNISolone Sod Succ 40 MG VIAL IVP SCH (23:00)
[2022-04-09] MEDS: hydrOXYzine 25 MG TAB PO PRN (23:32)
[2022-04-10] MEDS: Ipratropium/Albuterol 3 ML NEB NEB SCH ×7 (01:45→21:45)
[2022-04-10 04:50] LABS: Anion Gap 14 mmol/L (10-20); BUN (Urea Nitrogen) 47 mg/dL (7.0-18.7); Calc. Creatinine Clearance 68 mL/min (70-130); Calcium 8.9 mg/dL (7.8-10.44); Carbon Dioxide 19 mmol/L (22-29); Chloride 108 mmol/L (98-107); Estimated GFR 38; Glucose 259 mg/dL (70-105); Potassium 5.8 mmol/L (3.5-5.1); Sodium 135 mmol/L (136-145)
[2022-04-10 05:16] LABS: Band 6 % (5-11); Hemoglobin 8.2 g/dL (12.0-16.0); Hypochromia SLIGHT = 6-15 cells (100X) (0-5/hpf); Lymphocytes 11 % (21-51); MDiff Complete? YES; Mean Corpuscular HGB CONC 33.5 g/dL (32.0-36.0); Mean Corpuscular Hemoglobin 31.9 pg (27.0-31.0); Mean Corpuscular Volume 95.1 fl (78.0-98.0); Mean Platelet Volume 11.3 fL (7.4-10.4); Monocytes 3 % (0-10); Neutrophil 75 % (42-75); Nucleated RBC 1 % (0); Platelet Count 48 10x3/uL (130-400); Platelet Morphology Comment Appears Decreased; RBC Distribution Width 18.2 % (11.5-14.5); Reactive Lymphocytes 5 % (0-10); Red Blood Cell (RBC) Count 2.58 mill/uL (4.20-5.40); White Blood Cell (WBC) Count 3.6 10x3/uL (4.8-10.8)
[2022-04-10] MEDS: methylPREDNISolone Sod Succ 40 MG VIAL IVP SCH ×4 (05:29→23:56)
[2022-04-10] MEDS: HumaLOG 300 UNITS/3 ML VIAL SC PRN ×4 (05:35→23:58)
[2022-04-10] MEDS: Budesonide 0.5 MG/2 ML NEB NEB SCH ×2 (07:26→18:36)
[2022-04-10] MEDS ORDERED: LOKELMA 10 GM PACKET PO SCH ×2 (08:45→19:30)
[2022-04-10] MEDS ORDERED: Magnesium Sulfate 3 GM in Sodium Chloride 0.9% 100 ML IVPB SCH (09:00)
[2022-04-10] MEDS: Insulin Glargine 30 UNITS/0.3 ML VIAL SC SCH (09:14)
[2022-04-10] MEDS: Cefepime 1 GM in Sodium Chloride 0.9% 100 ML IVPB SCH (09:15)
[2022-04-10] MEDS: Doxycycline 100 MG in Sodium Chloride 0.9% 100 ML IVPB SCH ×2 (09:15→19:38)
[2022-04-10] MEDS: Sodium Bicarbonate Tab 325 MG TAB PO SCH ×3 (09:56→21:19)
[2022-04-10 19:01] LABS: Anion Gap 16 mmol/L (10-20); BUN (Urea Nitrogen) 52 mg/dL (7.0-18.7); Calc. Creatinine Clearance 62 mL/min (70-130); Calcium 9.4 mg/dL (7.8-10.44); Carbon Dioxide 18 mmol/L (22-29); Chloride 105 mmol/L (98-107); Estimated GFR 34; Potassium 5.7 mmol/L (3.5-5.1); Sodium 133 mmol/L (136-145)
[2022-04-10 19:06] LABS: Glucose 463 mg/dL (70-105)
[2022-04-10] MEDS ORDERED: Insulin Regular 300 UNITS/3 ML VIAL IVP SCH (19:30)
[2022-04-10] MEDS: HumuLIN 70/30 (300 UNITS/3 ML VIAL) SC SCH (21:17)
[2022-04-10] MEDS: Pregabalin 25 MG CAP PO SCH (21:18)
[2022-04-10] MEDS: hydrOXYzine 25 MG TAB PO PRN (21:18)
[2022-04-11] MEDS: Ipratropium/Albuterol 3 ML NEB NEB SCH ×8 (00:06→22:11)
[2022-04-11 04:55] LABS: Anion Gap 15 mmol/L (10-20); BUN (Urea Nitrogen) 50 mg/dL (7.0-18.7); Calc. Creatinine Clearance 73 mL/min (70-130); Carbon Dioxide 19 mmol/L (22-29); Chloride 107 mmol/L (98-107); Potassium 5.2 mmol/L (3.5-5.1); Sodium 136 mmol/L (136-145)
[2022-04-11 04:56] LABS: BUN/Creatinine Ratio 29.59; Calcium 9.6 mg/dL (7.8-10.44); Estimated GFR 41; Glucose 219 mg/dL (70-105); Phosphorus 2.9 mg/dL (2.3-4.7)
[2022-04-11 05:06] LABS: Anisocytosis MODERATE=16-30 cells (100X) (0-5/hpf); Band 6 % (5-11); Hemoglobin 8.5 g/dL (12.0-16.0); Lymphocytes 5 % (21-51); MDiff Complete? YES; Mean Corpuscular HGB CONC 34.5 g/dL (32.0-36.0); Mean Corpuscular Hemoglobin 32.9 pg (27.0-31.0); Mean Corpuscular Volume 95.5 fl (78.0-98.0); Mean Platelet Volume 10.1 fL (7.4-10.4); Metamyelocyte 1 % (0-0); Monocytes 4 % (0-10); Neutrophil 83 % (42-75); Platelet Count 61 10x3/uL (130-400); Platelet Morphology Comment Appears Decreased; RBC Distribution Width 18.5 % (11.5-14.5); Reactive Lymphocytes 1 % (0-10); Red Blood Cell (RBC) Count 2.58 mill/uL (4.20-5.40); White Blood Cell (WBC) Count 3.2 10x3/uL (4.8-10.8)
[2022-04-11] MEDS: methylPREDNISolone Sod Succ 40 MG VIAL IVP SCH ×3 (06:12→20:29)
[2022-04-11] MEDS: HumaLOG 300 UNITS/3 ML VIAL SC PRN ×4 (06:13→20:31)
[2022-04-11] MEDS: Budesonide 0.5 MG/2 ML NEB NEB SCH ×2 (07:33→18:13)
[2022-04-11] MEDS ORDERED: Empagliflozin 10 MG TAB PO SCH (09:00)
[2022-04-11] MEDS ORDERED: Atorvastatin Calcium 10 MG TAB PO SCH (09:00)
[2022-04-11] MEDS: Amlodipine 5 MG TAB PO SCH (09:39)
[2022-04-11] MEDS: Doxycycline 100 MG in Sodium Chloride 0.9% 100 ML IVPB SCH (09:39)
[2022-04-11] MEDS: Pregabalin 25 MG CAP PO SCH ×2 (09:39→20:28)
[2022-04-11] MEDS: Sodium Bicarbonate Tab 325 MG TAB PO SCH ×3 (09:39→20:27)
[2022-04-11] MEDS: HumuLIN 70/30 (300 UNITS/3 ML VIAL) SC SCH ×2 (09:40→20:29)
[2022-04-11] MEDS ORDERED: Sodium Bicarbonate 50 MEQ in Sodium Chloride 0.45% 1,000 ML IV SCH (11:00)
[2022-04-11] MEDS: hydrOXYzine 25 MG TAB PO PRN (20:28)
[2022-04-11] MEDS: Atorvastatin Calcium 10 MG TAB PO SCH (20:28)
[2022-04-12] MEDS: Ipratropium/Albuterol 3 ML NEB NEB SCH ×6 (02:18→21:24)
[2022-04-12 05:56] LABS: Albumin 3.8 g/dL (3.5-5.0); Anion Gap 11 mmol/L (10-20); BUN (Urea Nitrogen) 56 mg/dL (7.0-18.7); BUN/Creatinine Ratio 33.53; Calc. Creatinine Clearance 74 mL/min (70-130); Calcium 9.4 mg/dL (7.8-10.44); Carbon Dioxide 22 mmol/L (22-29); Chloride 108 mmol/L (98-107); Estimated GFR 41; Glucose 140 mg/dL (70-105); Potassium 5.2 mmol/L (3.5-5.1); Sodium 136 mmol/L (136-145)
[2022-04-12 06:23] LABS: Band 4 % (5-11); Hemoglobin 8.8 g/dL (12.0-16.0); Hypochromia SLIGHT = 6-15 cells (100X) (0-5/hpf); Lymphocytes 28 % (21-51); MDiff Complete? YES; Mean Corpuscular HGB CONC 34.2 g/dL (32.0-36.0); Mean Corpuscular Hemoglobin 32.6 pg (27.0-31.0); Mean Corpuscular Volume 95.2 fl (78.0-98.0); Mean Platelet Volume 10.3 fL (7.4-10.4); Monocytes 2 % (0-10); Neutrophil 65 % (42-75); Platelet Count 70 10x3/uL (130-400); Platelet Morphology Comment Appears Decreased; RBC Distribution Width 18.8 % (11.5-14.5); Reactive Lymphocytes 1 % (0-10); Red Blood Cell (RBC) Count 2.72 mill/uL (4.20-5.40); White Blood Cell (WBC) Count 4.2 10x3/uL (4.8-10.8)
[2022-04-12] MEDS: Pregabalin 25 MG CAP PO SCH ×2 (07:48→20:45)
[2022-04-12] MEDS: Amlodipine 5 MG TAB PO SCH (07:48)
[2022-04-12] MEDS: Sodium Bicarbonate Tab 325 MG TAB PO SCH ×3 (07:48→20:45)
[2022-04-12] MEDS: Saccharomyces boulardii 250 MG CAP PO SCH (07:48)
[2022-04-12] MEDS: methylPREDNISolone Sod Succ 40 MG VIAL IVP SCH ×2 (07:49→20:46)
[2022-04-12] MEDS: HumaLOG 300 UNITS/3 ML VIAL SC SCH ×3 (07:49→17:52)
[2022-04-12] MEDS: HumuLIN 70/30 (300 UNITS/3 ML VIAL) SC SCH ×2 (07:49→20:47)
[2022-04-12] MEDS: Budesonide 0.5 MG/2 ML NEB NEB SCH ×2 (08:13→19:09)
[2022-04-12] MEDS: guaiFENesin ER 600 MG TAB PO SCH ×2 (12:04→20:46)
[2022-04-12] MEDS: HumaLOG 300 UNITS/3 ML VIAL SC PRN ×3 (12:05→20:47)
[2022-04-12] MEDS: Atorvastatin Calcium 10 MG TAB PO SCH (20:46)
[2022-04-12] MEDS: Clotrimazole 2% 3 Day Vag Cr 22.2 GM TUBE VAG SCH (20:46)
[2022-04-13] MEDS: Ipratropium/Albuterol 3 ML NEB NEB SCH ×6 (01:12→22:45)
[2022-04-13] MEDS: hydrOXYzine 25 MG TAB PO PRN ×2 (05:27→20:20)
[2022-04-13 06:37] LABS: Hemoglobin 8.1 g/dL (12.0-16.0); Mean Corpuscular HGB CONC 33.7 g/dL (32.0-36.0); Mean Corpuscular Hemoglobin 32.2 pg (27.0-31.0); Mean Corpuscular Volume 95.7 fl (78.0-98.0); Mean Platelet Volume 10.3 fL (7.4-10.4); Platelet Count 58 10x3/uL (130-400); RBC Distribution Width 18.1 % (11.5-14.5); White Blood Cell (WBC) Count 2.9 10x3/uL (4.8-10.8)
[2022-04-13 06:56] LABS: Anion Gap 13 mmol/L (10-20); BUN (Urea Nitrogen) 63 mg/dL (7.0-18.7); Calc. Creatinine Clearance 68 mL/min (70-130); Carbon Dioxide 21 mmol/L (22-29); Chloride 107 mmol/L (98-107); Estimated GFR 38; Glucose 308 mg/dL (70-105); Magnesium 1.4 mg/dL (1.6-2.6); Potassium 4.8 mmol/L (3.5-5.1); Sodium 136 mmol/L (136-145)
[2022-04-13 07:30] LABS: Band 2 % (5-11); Lymphocytes 29 % (21-51); MDiff Complete? YES; Monocytes 3 % (0-10); Neutrophil 61 % (42-75); Nucleated RBC 2 % (0); Platelet Morphology Comment Appears Decreased; Polychromasia SLIGHT = 2-3 cells (100X) (0-2/hpf); Reactive Lymphocytes 5 % (0-10)
[2022-04-13] MEDS: Budesonide 0.5 MG/2 ML NEB NEB SCH ×2 (07:55→19:03)
[2022-04-13] MEDS ORDERED: Magnesium Sulfate In Water 4 GM in Premix Bag 1 BAG IVPB SCH (08:00)
[2022-04-13] MEDS: HumaLOG 300 UNITS/3 ML VIAL SC SCH ×3 (08:31→16:41)
[2022-04-13] MEDS: HumuLIN 70/30 (300 UNITS/3 ML VIAL) SC SCH ×3 (08:32→20:21)
[2022-04-13] MEDS: Sodium Bicarbonate Tab 325 MG TAB PO SCH ×3 (08:33→20:20)
[2022-04-13] MEDS: Pregabalin 25 MG CAP PO SCH ×2 (08:33→20:20)
[2022-04-13] MEDS: methylPREDNISolone Sod Succ 40 MG VIAL IVP SCH ×2 (08:34→20:21)
[2022-04-13] MEDS: Amlodipine 5 MG TAB PO SCH (08:34)
[2022-04-13] MEDS: Saccharomyces boulardii 250 MG CAP PO SCH (08:34)
[2022-04-13] MEDS: guaiFENesin ER 600 MG TAB PO SCH ×2 (08:34→20:20)
[2022-04-13] MEDS: Terbinafine 1% 30 GM TUBE TOP SCH (09:36)
[2022-04-13] MEDS: HumaLOG 300 UNITS/3 ML VIAL SC PRN ×2 (16:41→17:09)
[2022-04-13] MEDS: Clotrimazole 2% 3 Day Vag Cr 22.2 GM TUBE VAG SCH (19:43)
[2022-04-13] MEDS: Famotidine 20 MG TAB PO SCH (20:20)
[2022-04-13] MEDS: Atorvastatin Calcium 10 MG TAB PO SCH (20:20)
[2022-04-14] MEDS: Ipratropium/Albuterol 3 ML NEB NEB SCH ×6 (02:24→22:50)
[2022-04-14] MEDS: HumaLOG 300 UNITS/3 ML VIAL SC PRN ×2 (05:56→20:44)
[2022-04-14 06:29] LABS: Hemoglobin 8.5 g/dL (12.0-16.0); Mean Corpuscular HGB CONC 34.2 g/dL (32.0-36.0); Mean Corpuscular Hemoglobin 32.5 pg (27.0-31.0); Mean Platelet Volume 10.6 fL (7.4-10.4); Platelet Count 56 10x3/uL (130-400); RBC Distribution Width 18.1 % (11.5-14.5); Red Blood Cell (RBC) Count 2.61 mill/uL (4.20-5.40); White Blood Cell (WBC) Count 3.1 10x3/uL (4.8-10.8)
[2022-04-14 06:44] LABS: Anion Gap 13 mmol/L (10-20); BUN (Urea Nitrogen) 67 mg/dL (7.0-18.7); Calc. Creatinine Clearance 64 mL/min (70-130); Calcium 8.8 mg/dL (7.8-10.44); Carbon Dioxide 20 mmol/L (22-29); Chloride 106 mmol/L (98-107); Estimated GFR 35; Sodium 132 mmol/L (136-145)
[2022-04-14 06:51] LABS: Glucose 400 mg/dL (70-105); Potassium 6.6 mmol/L (3.5-5.1)
[2022-04-14] MEDS: Budesonide 0.5 MG/2 ML NEB NEB SCH ×2 (07:09→19:48)
[2022-04-14 07:32] LABS: Anisocytosis SLIGHT = 6-15 cells (100X) (0-5/hpf); Band 6 % (5-11); Lymphocytes 10 % (21-51); MDiff Complete? YES; Metamyelocyte 2 % (0-0); Monocytes 4 % (0-10); Myelocyte 1 % (0-0); Neutrophil 76 % (42-75); Nucleated RBC 1 % (0); Platelet Morphology Comment Appears Decreased; Polychromasia MODERATE = 3-4 cells (100X) (0-2/hpf); Reactive Lymphocytes 1 % (0-10); Schistocytes SLIGHT = 2-5 cells (100X) (0-1/hpf); Tear Drops SLIGHT = 2-5 cells (100X) (0-1/hpf)
[2022-04-14 07:43] LABS: Anion Gap 13 mmol/L (10-20); BUN (Urea Nitrogen) 67 mg/dL (7.0-18.7); Calc. Creatinine Clearance 64 mL/min (70-130); Calcium 8.7 mg/dL (7.8-10.44); Carbon Dioxide 18 mmol/L (22-29); Chloride 106 mmol/L (98-107); Estimated GFR 35; Sodium 131 mmol/L (136-145)
[2022-04-14 07:48] LABS: Glucose 491 mg/dL (70-105); Potassium 6.2 mmol/L (3.5-5.1)
[2022-04-14] MEDS ORDERED: Insulin Regular 300 UNITS/3 ML VIAL IVP SCH (08:00)
[2022-04-14] MEDS: HumaLOG 300 UNITS/3 ML VIAL SC SCH ×3 (08:09→15:29)
[2022-04-14] MEDS: HumuLIN 70/30 (300 UNITS/3 ML VIAL) SC SCH ×2 (08:14→20:49)
[2022-04-14] MEDS ORDERED: LOKELMA 10 GM PACKET PO SCH (08:15)
[2022-04-14] MEDS: Terbinafine 1% 30 GM TUBE TOP SCH (08:21)
[2022-04-14] MEDS: methylPREDNISolone Sod Succ 40 MG VIAL IVP SCH ×2 (08:22→11:48)
[2022-04-14] MEDS: Saccharomyces boulardii 250 MG CAP PO SCH (08:22)
[2022-04-14] MEDS: Amlodipine 5 MG TAB PO SCH (08:22)
[2022-04-14] MEDS: Pregabalin 25 MG CAP PO SCH ×2 (08:24→20:47)
[2022-04-14] MEDS: Sodium Bicarbonate Tab 325 MG TAB PO SCH ×3 (08:25→20:47)
[2022-04-14] MEDS: guaiFENesin ER 600 MG TAB PO SCH ×2 (08:25→20:47)
[2022-04-14] MEDS ORDERED: Sodium Bicarbonate 50 MEQ in Sodium Chloride 0.45% 1,000 ML IV SCH (08:30)
[2022-04-14] MEDS ORDERED: Sodium Chloride 0.9% 1,000 ML IV SCH (10:45)
[2022-04-14] MEDS: Clotrimazole 2% 3 Day Vag Cr 22.2 GM TUBE VAG SCH ×2 (20:27→20:52)
[2022-04-14] MEDS: Atorvastatin Calcium 10 MG TAB PO SCH (20:48)
[2022-04-14] MEDS: Famotidine 20 MG TAB PO SCH (20:48)
[2022-04-14] MEDS: hydrOXYzine 25 MG TAB PO PRN (21:02)
[2022-04-14 23:16] LABS: Anion Gap 16 mmol/L (10-20); BUN (Urea Nitrogen) 66 mg/dL (7.0-18.7); Calc. Creatinine Clearance 67 mL/min (70-130); Calcium 9.5 mg/dL (7.8-10.44); Carbon Dioxide 20 mmol/L (22-29); Chloride 107 mmol/L (98-107); Estimated GFR 37; Glucose 232 mg/dL (70-105); Potassium 5.8 mmol/L (3.5-5.1); Sodium 137 mmol/L (136-145)
[2022-04-15] MEDS: Ipratropium/Albuterol 3 ML NEB NEB SCH ×6 (02:32→21:45)
[2022-04-15 07:33] LABS: Anion Gap 15 mmol/L (10-20); BUN (Urea Nitrogen) 60 mg/dL (7.0-18.7); Calc. Creatinine Clearance 78 mL/min (70-130); Calcium 9.4 mg/dL (7.8-10.44); Carbon Dioxide 20 mmol/L (22-29); Chloride 109 mmol/L (98-107); Estimated GFR 45; Glucose 91 mg/dL (70-105); Potassium 4.5 mmol/L (3.5-5.1); Sodium 139 mmol/L (136-145)
[2022-04-15] MEDS: Budesonide 0.5 MG/2 ML NEB NEB SCH ×2 (07:49→18:44)
[2022-04-15 08:54] LABS: Anisocytosis SLIGHT = 6-15 cells (100X) (0-5/hpf); Band 2 % (5-11); Hemoglobin 9.9 g/dL (12.0-16.0); Lymphocytes 37 % (21-51); MDiff Complete? YES; Mean Corpuscular HGB CONC 35.5 g/dL (32.0-36.0); Mean Corpuscular Hemoglobin 33.2 pg (27.0-31.0); Mean Corpuscular Volume 93.7 fl (78.0-98.0); Mean Platelet Volume 10.8 fL (7.4-10.4); Monocytes 6 % (0-10); Neutrophil 52 % (42-75); Nucleated RBC 5 % (0); Ovalocytes SLIGHT = 2-5 cells (100X) (0-1/hpf); Platelet Count 63 10x3/uL (130-400); Platelet Morphology Comment Appears Decreased; Polychromasia MODERATE = 3-4 cells (100X) (0-2/hpf); RBC Distribution Width 18.1 % (11.5-14.5); Reactive Lymphocytes 3 % (0-10); Red Blood Cell (RBC) Count 2.99 mill/uL (4.20-5.40); Tear Drops SLIGHT = 2-5 cells (100X) (0-1/hpf); White Blood Cell (WBC) Count 3.8 10x3/uL (4.8-10.8)
[2022-04-15] MEDS: Sodium Bicarbonate Tab 325 MG TAB PO SCH ×3 (09:02→20:28)
[2022-04-15] MEDS: guaiFENesin ER 600 MG TAB PO SCH ×2 (09:02→20:31)
[2022-04-15] MEDS: Amlodipine 5 MG TAB PO SCH (09:02)
[2022-04-15] MEDS: Pregabalin 25 MG CAP PO SCH ×2 (09:02→20:28)
[2022-04-15] MEDS: Saccharomyces boulardii 250 MG CAP PO SCH (09:03)
[2022-04-15] MEDS: methylPREDNISolone Sod Succ 40 MG VIAL IVP SCH (09:03)
[2022-04-15] MEDS: HumaLOG 300 UNITS/3 ML VIAL SC SCH ×3 (09:04→18:05)
[2022-04-15] MEDS: HumuLIN 70/30 (300 UNITS/3 ML VIAL) SC SCH ×2 (09:06→20:30)
[2022-04-15] MEDS: Terbinafine 1% 30 GM TUBE TOP SCH (09:12)
[2022-04-15] MEDS: HumaLOG 300 UNITS/3 ML VIAL SC PRN ×2 (18:06→20:30)
[2022-04-15] MEDS: hydrOXYzine 25 MG TAB PO PRN (20:28)
[2022-04-15] MEDS: Atorvastatin Calcium 10 MG TAB PO SCH (20:28)
[2022-04-15] MEDS: Famotidine 20 MG TAB PO SCH (20:28)
[2022-04-15] MEDS: Clotrimazole 2% 3 Day Vag Cr 22.2 GM TUBE VAG SCH (20:29)
[2022-04-16] MEDS: Ipratropium/Albuterol 3 ML NEB NEB SCH ×3 (02:09→10:56)
[2022-04-16] MEDS: Budesonide 0.5 MG/2 ML NEB NEB SCH (06:52)
[2022-04-16] MEDS: methylPREDNISolone Sod Succ 40 MG VIAL IVP SCH (08:30)
[2022-04-16] MEDS: Sodium Bicarbonate Tab 325 MG TAB PO SCH ×2 (08:30→14:54)
[2022-04-16] MEDS: Pregabalin 25 MG CAP PO SCH (08:31)
[2022-04-16] MEDS: Amlodipine 5 MG TAB PO SCH (08:31)
[2022-04-16] MEDS: Saccharomyces boulardii 250 MG CAP PO SCH (08:32)
[2022-04-16] MEDS: guaiFENesin ER 600 MG TAB PO SCH (08:32)
[2022-04-16] MEDS: HumaLOG 300 UNITS/3 ML VIAL SC SCH ×2 (08:32→12:18)
[2022-04-16] MEDS: HumuLIN 70/30 (300 UNITS/3 ML VIAL) SC SCH (08:32)
[2022-04-16] MEDS: Terbinafine 1% 30 GM TUBE TOP SCH (08:43)
[2022-04-16 09:49] LABS: Mean Corpuscular Hemoglobin 32.3 pg (27.0-31.0); Mean Corpuscular Volume 94.8 fl (78.0-98.0); Platelet Count 66 10x3/uL (130-400); RBC Distribution Width 18.2 % (11.5-14.5); Red Blood Cell (RBC) Count 3.08 mill/uL (4.20-5.40); White Blood Cell (WBC) Count 3.7 10x3/uL (4.8-10.8)
[2022-04-16 09:58] VITALS: BP 127/60; TEMP 98.3
[2022-04-16 10:00] LABS: Anion Gap 15 mmol/L (10-20); BUN (Urea Nitrogen) 62 mg/dL (7.0-18.7); Calc. Creatinine Clearance 76 mL/min (70-130); Calcium 9.2 mg/dL (7.8-10.44); Carbon Dioxide 19 mmol/L (22-29); Chloride 108 mmol/L (98-107); Estimated GFR 43; Glucose 200 mg/dL (70-105); Potassium 5.1 mmol/L (3.5-5.1); Sodium 137 mmol/L (136-145)
[2022-04-16 10:16] LABS: Band 1 % (5-11); Lymphocytes 43 % (21-51); MDiff Complete? YES; Monocytes 2 % (0-10); Neutrophil 54 % (42-75); Platelet Morphology Comment Appears Decreased; Polychromasia SLIGHT = 2-3 cells (100X) (0-2/hpf)
[2022-04-16] MEDS: Ondansetron PF 4 MG/2 ML Vial IVP PRN (14:15)
== END 2022-04-16 15:25 | disposition home or self-care (01) | DRG 189 ==
LOC: ERS 14:22 → 2NO 18:46 → IMCU/EMU 04-08 21:50 → T4-B 04-12 13:47
PROVIDERS: ADMIT Family Medicine; ATTEND Internal Medicine
PROC: 30233N1 Transfusion of Nonautologous Red Blood Cells into Peripheral Vein, Percutaneous Approach (ICD-10-PCS; principal; 2022-04-07)
PROC: 30233J1 Transfusion of Nonautologous Serum Albumin into Peripheral Vein, Percutaneous Approach (ICD-10-PCS; 2022-04-10)
DX: J96.01 Acute respiratory failure with hypoxia (principal); E10.10 Type 1 diabetes mellitus with ketoacidosis without coma; D61.818 Other pancytopenia; N13.30 Unspecified hydronephrosis; J45.901 Unspecified asthma with (acute) exacerbation; N17.9 Acute kidney failure, unspecified; E10.22 Type 1 diabetes mellitus with diabetic chronic kidney disease; D63.1 Anemia in chronic kidney disease; E87.5 Hyperkalemia; I12.9 Hypertensive chronic kidney disease with stage 1 through stage 4 chronic kidney disease, or unspecified chronic kidney disease; Z20.822 Contact with and (suspected) exposure to COVID-19; J44.9 Chronic obstructive pulmonary disease, unspecified; N18.30 Chronic kidney disease, stage 3 unspecified; E83.42 Hypomagnesemia; Z98.890 Other specified postprocedural states; Z88.8 Allergy status to other drugs, medicaments and biological substances; Z88.2 Allergy status to sulfonamides; Z79.51 Long term (current) use of inhaled steroids; Z79.4 Long term (current) use of insulin; Z79.899 Other long term (current) drug therapy
CPT/HCPCS: 36415; 36416; 36430; 71045; 71046; 74176; 80048; 80053; 80069; 81001; 81003; 81015; 82010; 82274; 82805; 83605; 83615; 83690; 83735; 83880; 84484; 84703; 85025; 85610; 85730; 86160; 86850; 86860; 86870; 86880; 86900; 86901; 86922; 87040; 87804; 87811; 93005; 93306; 94640; 96365; 96366; 96367; 96375; J0611; J0692; J1815; J1940; J1956; J2405; J2920; J2930; J3370; J3475; J3480; J3490; J7050; J7512; J7611; J7620; J7626; J7999; P9016; P9047; Q0162; U0002

== ENCOUNTER 2022-05-05 15:44 | Inpatient (IN) | payer OTHER ==
[2022-05-05 16:16] VITALS: BMI 83.6
[2022-05-05] MEDS ORDERED: Albuterol 200 PUFF (6.7GM INHALER) INH PRN (16:40)
[2022-05-05] MEDS ORDERED: predniSONE 20 MG TAB PO SCH ×2 (16:45→21:00)
[2022-05-05] MEDS ORDERED: Dextrose 5% in Water 1,000 ML IV PRN (17:21)
[2022-05-05] MEDS ORDERED: Dextrose 50% Abboject 50 ML SYRINGE SLOW IVP PRN (17:21)
[2022-05-05] MEDS: Sodium Chloride 0.9% 1,000 ML IV SCH (17:53)
[2022-05-05] MEDS ORDERED: Acetaminophen 500 MG TAB PO PRN (20:37)
[2022-05-05] MEDS: Carvedilol 6.25 MG TAB PO SCH (21:29)
[2022-05-05] MEDS: Gabapentin 300 MG CAP PO SCH (21:29)
[2022-05-05] MEDS: Pregabalin 25 MG CAP PO SCH (21:29)
[2022-05-05] MEDS: Famotidine 20 MG TAB PO SCH (21:30)
[2022-05-05] MEDS: Sodium Bicarbonate Tab 325 MG TAB PO SCH (21:30)
[2022-05-05] MEDS: Nystatin Powder 15 GM BOT TOP PRN (21:32)
[2022-05-05] MEDS: HumaLOG 300 UNITS/3 ML VIAL SC PRN (21:34)
[2022-05-06] MEDS: HumaLOG 300 UNITS/3 ML VIAL SC PRN ×4 (05:16→17:39)
[2022-05-06] MEDS: Sodium Chloride 0.9% 1,000 ML IV SCH (05:16)
[2022-05-06 06:10] LABS: Anion Gap 14 mmol/L (10-20); BUN (Urea Nitrogen) 35 mg/dL (7.0-18.7); Calc. Creatinine Clearance 62 mL/min (70-130); Carbon Dioxide 18 mmol/L (22-29); Chloride 106 mmol/L (98-107); Estimated GFR 36; Sodium 131 mmol/L (136-145)
[2022-05-06 06:26] LABS: Glucose 444 mg/dL (70-105); Potassium 6.7 mmol/L (3.5-5.1)
[2022-05-06 06:27] LABS: Anisocytosis SLIGHT = 6-15 cells (100X) (0-5/hpf); Band 10 % (5-11); Hemoglobin 6.6 g/dL (12.0-16.0); Lymphocytes 26 % (21-51); MDiff Complete? YES; Mean Corpuscular HGB CONC 33.4 g/dL (32.0-36.0); Mean Corpuscular Hemoglobin 30.8 pg (27.0-31.0); Mean Corpuscular Volume 92.1 fl (78.0-98.0); Mean Platelet Volume 9.4 fL (7.4-10.4); Monocytes 3 % (0-10); Neutrophil 59 % (42-75); Nucleated RBC 4 % (0); Platelet Count 91 10x3/uL (130-400); Platelet Morphology Comment Appears Decreased; Polychromasia MODERATE = 3-4 cells (100X) (0-2/hpf); RBC Distribution Width 16.1 % (11.5-14.5); Reactive Lymphocytes 2 % (0-10); Red Blood Cell (RBC) Count 2.14 mill/uL (4.20-5.40); Tear Drops SLIGHT = 2-5 cells (100X) (0-1/hpf)
[2022-05-06] MEDS ORDERED: Insulin Regular 300 UNITS/3 ML VIAL IVP SCH (06:45)
[2022-05-06] MEDS ORDERED: Sodium Bicarb 50 MEQ/50 ML VIAL IVP SCH (06:45)
[2022-05-06] MEDS ORDERED: Calcium Gluc 4.6 MEQ/10 ML (100 MG/ML) SLOW IVP SCH (06:45)
[2022-05-06] MEDS ORDERED: Empagliflozin 10 MG TAB PO SCH (09:00)
[2022-05-06] MEDS: Insulin Glargine 30 UNITS/0.3 ML VIAL SC SCH (10:21)
[2022-05-06] MEDS: Atorvastatin Calcium 10 MG TAB PO SCH (10:22)
[2022-05-06] MEDS: predniSONE 20 MG TAB PO SCH (10:22)
[2022-05-06] MEDS: Amlodipine 5 MG TAB PO SCH (10:22)
[2022-05-06] MEDS: Carvedilol 6.25 MG TAB PO SCH ×2 (10:23→22:11)
[2022-05-06] MEDS: Famotidine 20 MG TAB PO SCH ×2 (10:23→22:33)
[2022-05-06] MEDS: Gabapentin 300 MG CAP PO SCH ×2 (10:23→22:09)
[2022-05-06] MEDS: Sodium Bicarbonate Tab 325 MG TAB PO SCH ×3 (10:32→22:12)
[2022-05-06] MEDS: Pregabalin 25 MG CAP PO SCH ×2 (10:32→22:08)
[2022-05-06 11:15] LABS: Anion Gap 15 mmol/L (10-20); BUN (Urea Nitrogen) 34 mg/dL (7.0-18.7); Calc. Creatinine Clearance 62 mL/min (70-130); Calcium 8.2 mg/dL (7.8-10.44); Carbon Dioxide 19 mmol/L (22-29); Chloride 106 mmol/L (98-107); Estimated GFR 36; Sodium 134 mmol/L (136-145)
[2022-05-06 11:23] LABS: Glucose 542 mg/dL (70-105)
[2022-05-06] MEDS ORDERED: Albumin 25% 25 GM/100 ML BOT IVPB SCH (12:00)
[2022-05-06] MEDS ORDERED: diphenhydrAMINE 25 MG in Sodium Chloride 0.9% 50 ML IVPB SCH (12:30)
[2022-05-06] MEDS ORDERED: predniSONE 20 MG TAB PO SCH (12:30)
[2022-05-06] MEDS ORDERED: Acetaminophen 325 MG TAB PO SCH (12:30)
[2022-05-06] MEDS: Albumin 25% 25 GM/100 ML BOT IVPB SCH (18:27)
[2022-05-06] MEDS ORDERED: diphenhydrAMINE 50 MG/ML VIAL IVP SCH (21:45)
[2022-05-06] MEDS ORDERED: Lidocaine 4% Patch TD SCH (21:45)
[2022-05-06] MEDS ORDERED: Chloraseptic Spray 180 ml Bottle PO PRN (22:14)
[2022-05-06] MEDS ORDERED: Loratadine 10 MG TAB PO SCH (22:30)
[2022-05-06 23:31] LABS: Hemoglobin 7.5 g/dL (12.0-16.0)
[2022-05-07] MEDS: Sodium Chloride 0.9% 1,000 ML IV SCH ×2 (01:24→09:42)
[2022-05-07] MEDS: Albumin 25% 25 GM/100 ML BOT IVPB SCH ×3 (01:27→14:51)
[2022-05-07] MEDS: Nystatin Powder 15 GM BOT TOP PRN (01:37)
[2022-05-07] MEDS: traMADol HCl 50 MG TAB PO PRN ×3 (01:37→17:38)
[2022-05-07] MEDS: Ondansetron ODT 4 MG TAB PO PRN ×2 (03:39→20:52)
[2022-05-07 04:49] LABS: #Lymphocytes 0.5 thou/uL (1.20-3.40); #Monocytes 0.2 thou/uL (0.11-0.59); %Basophils 0.4 % (0.0-1.0); %Eosinophils 1.6 % (0.0-10.0); %Lymphocytes 16.9 % (21.0-51.0); %Monocytes 6.9 % (0.0-10.0); %Neutrophils 74.2 % (42.0-75.0); Mean Corpuscular HGB CONC 34.1 g/dL (32.0-36.0); Mean Corpuscular Hemoglobin 30.7 pg (27.0-31.0); Mean Corpuscular Volume 90.1 fl (78.0-98.0); Mean Platelet Volume 9.4 fL (7.4-10.4); Platelet Count 84 10x3/uL (130-400); Red Blood Cell (RBC) Count 2.28 mill/uL (4.20-5.40); White Blood Cell (WBC) Count 2.7 10x3/uL (4.8-10.8)
[2022-05-07] MEDS: HumaLOG 300 UNITS/3 ML VIAL SC PRN ×4 (05:36→20:51)
[2022-05-07 07:12] LABS: Albumin 3.9 g/dL (3.5-5.0); Anion Gap 13 mmol/L (10-20); BUN (Urea Nitrogen) 35 mg/dL (7.0-18.7); Calc. Creatinine Clearance 71 mL/min (70-130); Calcium 8.5 mg/dL (7.8-10.44); Carbon Dioxide 22 mmol/L (22-29); Chloride 108 mmol/L (98-107); Estimated GFR 43; Glucose 365 mg/dL (70-105); Magnesium 1.8 mg/dL (1.6-2.6); Phosphorus 3.1 mg/dL (2.3-4.7); Potassium 4.9 mmol/L (3.5-5.1); Sodium 138 mmol/L (136-145)
[2022-05-07] MEDS: predniSONE 20 MG TAB PO SCH (09:43)
[2022-05-07] MEDS: Sodium Bicarbonate Tab 325 MG TAB PO SCH ×3 (09:44→20:57)
[2022-05-07] MEDS: Gabapentin 300 MG CAP PO SCH ×2 (09:44→20:49)
[2022-05-07] MEDS: Pregabalin 25 MG CAP PO SCH ×2 (09:45→21:01)
[2022-05-07] MEDS: Atorvastatin Calcium 10 MG TAB PO SCH (09:45)
[2022-05-07] MEDS: Famotidine 20 MG TAB PO SCH ×2 (09:45→20:49)
[2022-05-07] MEDS: Amlodipine 5 MG TAB PO SCH (09:45)
[2022-05-07] MEDS: Carvedilol 6.25 MG TAB PO SCH ×2 (09:45→20:49)
[2022-05-07] MEDS ORDERED: Transdermal Patch Removal TOP SCH (09:45)
[2022-05-07] MEDS: Insulin Glargine 30 UNITS/0.3 ML VIAL SC SCH ×2 (09:46→20:49)
[2022-05-07] MEDS ORDERED: Dicyclomine 20 MG TAB PO PRN (13:21)
[2022-05-07] MEDS ORDERED: Morphine 2 MG/ML VIAL SLOW IVP PRN (13:21)
[2022-05-07] MEDS ORDERED: Lidocaine 4% Patch TD SCH (22:00)
[2022-05-08] MEDS: Sodium Chloride 0.9% 1,000 ML IV SCH (00:52)
[2022-05-08] MEDS: Loperamide HCl 2 MG CAP PO PRN ×2 (03:11→21:49)
[2022-05-08] MEDS: traMADol HCl 50 MG TAB PO PRN ×3 (05:11→20:01)
[2022-05-08] MEDS: HumaLOG 300 UNITS/3 ML VIAL SC PRN ×4 (05:16→20:05)
[2022-05-08 05:37] LABS: ALT (SGPT) 14 U/L (8-55); AST (SGOT) 13 U/L (5-34); Alkaline Phosphatase 52 U/L (40-110); Anion Gap 13 mmol/L (10-20); BUN (Urea Nitrogen) 34 mg/dL (7.0-18.7); BUN/Creatinine Ratio 20.61; Bilirubin, Total 1.2 mg/dL (0.2-1.2); Calc. Creatinine Clearance 69 mL/min (70-130); Calcium 8.1 mg/dL (7.8-10.44); Carbon Dioxide 20 mmol/L (22-29); Chloride 110 mmol/L (98-107); Estimated GFR 42; Globulin 1.7 g/dL (2.4-3.5); Glucose 294 mg/dL (70-105); Phosphorus 2.9 mg/dL (2.3-4.7); Potassium 4.8 mmol/L (3.5-5.1); Protein, Total 5.7 g/dL (6.0-8.3); Sodium 138 mmol/L (136-145)
[2022-05-08 05:53] LABS: Anisocytosis SLIGHT = 6-15 cells (100X) (0-5/hpf); Hemoglobin 7.2 g/dL (12.0-16.0); Lymphocytes 23 % (21-51); MDiff Complete? YES; Mean Corpuscular HGB CONC 32.6 g/dL (32.0-36.0); Mean Platelet Volume 9.3 fL (7.4-10.4); Metamyelocyte 2 % (0-0); Monocytes 8 % (0-10); Neutrophil 67 % (42-75); Platelet Count 90 10x3/uL (130-400); Platelet Morphology Comment Appears Decreased; RBC Distribution Width 17.1 % (11.5-14.5); Red Blood Cell (RBC) Count 2.39 mill/uL (4.20-5.40); White Blood Cell (WBC) Count 2.7 10x3/uL (4.8-10.8)
[2022-05-08] MEDS ORDERED: Sodium Bicarbonate 50 MEQ in Sodium Chloride 0.45% 1,000 ML IV SCH (08:00)
[2022-05-08] MEDS: Pregabalin 25 MG CAP PO SCH ×2 (09:04→19:58)
[2022-05-08] MEDS: predniSONE 20 MG TAB PO SCH (09:04)
[2022-05-08] MEDS: Gabapentin 300 MG CAP PO SCH ×2 (09:04→19:58)
[2022-05-08] MEDS: Famotidine 20 MG TAB PO SCH (09:05)
[2022-05-08] MEDS: Amlodipine 5 MG TAB PO SCH (09:05)
[2022-05-08] MEDS: Atorvastatin Calcium 10 MG TAB PO SCH (09:05)
[2022-05-08] MEDS: Carvedilol 6.25 MG TAB PO SCH ×2 (09:05→19:57)
[2022-05-08] MEDS: Sodium Bicarbonate Tab 325 MG TAB PO SCH ×3 (09:06→19:59)
[2022-05-08] MEDS: Insulin Glargine 30 UNITS/0.3 ML VIAL SC SCH ×2 (09:16→19:58)
[2022-05-08] MEDS ORDERED: Transdermal Patch Removal TOP SCH (10:00)
[2022-05-08] MEDS: Ondansetron ODT 4 MG TAB PO PRN (21:49)
[2022-05-09] MEDS: HumaLOG 300 UNITS/3 ML VIAL SC PRN ×2 (05:59→16:49)
[2022-05-09] MEDS ORDERED: Famotidine 20 MG TAB PO SCH (09:00)
[2022-05-09] MEDS ORDERED: Insulin Glargine 30 UNITS/0.3 ML VIAL SC SCH (09:00)
[2022-05-09] MEDS: predniSONE 20 MG TAB PO SCH (09:10)
[2022-05-09] MEDS: Sodium Bicarbonate Tab 325 MG TAB PO SCH ×2 (09:10→15:29)
[2022-05-09] MEDS: Amlodipine 5 MG TAB PO SCH (09:11)
[2022-05-09] MEDS: Atorvastatin Calcium 10 MG TAB PO SCH (09:11)
[2022-05-09] MEDS: Gabapentin 300 MG CAP PO SCH (09:12)
[2022-05-09] MEDS: Carvedilol 6.25 MG TAB PO SCH (09:12)
[2022-05-09] MEDS: Pregabalin 25 MG CAP PO SCH (09:14)
[2022-05-09] MEDS: traMADol HCl 50 MG TAB PO PRN (09:18)
[2022-05-09 11:17] LABS: Hemoglobin 7.5 g/dL (12.0-16.0); Mean Corpuscular HGB CONC 33.1 g/dL (32.0-36.0); Mean Corpuscular Hemoglobin 30.1 pg (27.0-31.0); Mean Corpuscular Volume 90.9 fl (78.0-98.0); Mean Platelet Volume 8.8 fL (7.4-10.4); Platelet Count 102 10x3/uL (130-400); Red Blood Cell (RBC) Count 2.48 mill/uL (4.20-5.40); White Blood Cell (WBC) Count 2.8 10x3/uL (4.8-10.8)
[2022-05-09 11:36] LABS: Albumin 3.4 g/dL (3.5-5.0); Anion Gap 11 mmol/L (10-20); BUN (Urea Nitrogen) 32 mg/dL (7.0-18.7); BUN/Creatinine Ratio 20.51; Calc. Creatinine Clearance 73 mL/min (70-130); Calcium 8.2 mg/dL (7.8-10.44); Carbon Dioxide 21 mmol/L (22-29); Chloride 111 mmol/L (98-107); Estimated GFR 45; Glucose 146 mg/dL (70-105); Phosphorus 2.3 mg/dL (2.3-4.7); Potassium 4.1 mmol/L (3.5-5.1); Sodium 139 mmol/L (136-145)
[2022-05-09 12:06] LABS: Band 4 % (5-11); Eosinophils 1 % (0-10); Hypochromia SLIGHT = 6-15 cells (100X) (0-5/hpf); Lymphocytes 28 % (21-51); MDiff Complete? YES; Metamyelocyte 1 % (0-0); Monocytes 6 % (0-10); Neutrophil 60 % (42-75); Nucleated RBC 6 % (0); Ovalocytes SLIGHT = 2-5 cells (100X) (0-1/hpf); Platelet Morphology Comment Appears Decreased; Polychromasia MODERATE = 3-4 cells (100X) (0-2/hpf); Tear Drops SLIGHT = 2-5 cells (100X) (0-1/hpf)
[2022-05-09 15:09] VITALS: TEMP 98.5
[2022-05-09 16:54] VITALS: BP 116/77
== END 2022-05-09 18:10 | disposition home or self-care (01) | DRG 809 ==
LOC: MSONC 15:44 → 2NO 05-06 08:26 → MSONC 05-08 16:17
PROVIDERS: ADMIT Internal Medicine; ATTEND Internal Medicine
PROC: 30233N1 Transfusion of Nonautologous Red Blood Cells into Peripheral Vein, Percutaneous Approach (ICD-10-PCS; principal; 2022-05-06)
PROC: 30233J1 Transfusion of Nonautologous Serum Albumin into Peripheral Vein, Percutaneous Approach (ICD-10-PCS; 2022-05-06)
DX: D59.11 Warm autoimmune hemolytic anemia (principal); D61.818 Other pancytopenia; D83.9 Common variable immunodeficiency, unspecified; E87.20 Acidosis, unspecified; N17.9 Acute kidney failure, unspecified; N13.30 Unspecified hydronephrosis; D59.10 Autoimmune hemolytic anemia, unspecified; J45.909 Unspecified asthma, uncomplicated; R51.9 Headache, unspecified; E87.5 Hyperkalemia; T38.0X5A Adverse effect of glucocorticoids and synthetic analogues, initial encounter; N18.32 Chronic kidney disease, stage 3b; E10.22 Type 1 diabetes mellitus with diabetic chronic kidney disease; E10.21 Type 1 diabetes mellitus with diabetic nephropathy; E10.65 Type 1 diabetes mellitus with hyperglycemia; D63.1 Anemia in chronic kidney disease; D50.9 Iron deficiency anemia, unspecified; D73.1 Hypersplenism; D69.6 Thrombocytopenia, unspecified; R19.7 Diarrhea, unspecified; I12.9 Hypertensive chronic kidney disease with stage 1 through stage 4 chronic kidney disease, or unspecified chronic kidney disease; Z88.8 Allergy status to other drugs, medicaments and biological substances; Z79.4 Long term (current) use of insulin; Z79.899 Other long term (current) drug therapy; Z98.890 Other specified postprocedural states
CPT/HCPCS: 36415; 36416; 36430; 80048; 80053; 80069; 83615; 83630; 83735; 85025; 86850; 86900; 86901; 86922; 87324; 87449; 93005; 93010; 94640; J0610; J1815; J7050; J7512; J7611; P9016; P9047; Q0162

== ENCOUNTER 2022-05-15 06:37 | Inpatient (IN) | payer OTHER ==
[~2022-05-15 06:37] MED LIST changes: -ADMIXTURE FEE IVPB SCH; -Acetaminophen 500 MG TAB PO PRN; +Acetaminophen 500 MG TAB PO SCH; -IMMUNE GLOBULIN IVPB SCH; +diphenhydrAMINE 25 MG in Sodium Chloride 0.9% 50 ML IVPB SCH
[2022-05-15] MEDS ORDERED: RITUXIMAB ABBS IVPB SCH (09:00)
[2022-05-15] MEDS ORDERED: SODIUM CHLORIDE 0.9% IVPB SCH (09:00)
[2022-05-15] MEDS ORDERED: Acetaminophen 500 MG TAB ONE (10:25)
[2022-05-15 12:19] LABS: #Eosinphils 0.1 thou/uL (0.0-0.7); #Lymphocytes 0.7 thou/uL (1.20-3.40); #Monocytes 0.2 thou/uL (0.11-0.59); #Neutrophils 1.3 thou/uL (1.40-6.50); %Basophils 0.2 % (0.0-1.0); %Eosinophils 4.4 % (0.0-10.0); %Lymphocytes 30.3 % (21.0-51.0); %Monocytes 8.5 % (0.0-10.0); %Neutrophils 56.6 % (42.0-75.0); Hemoglobin 7.2 g/dL (12.0-16.0); Mean Corpuscular HGB CONC 32.6 g/dL (32.0-36.0); Mean Corpuscular Hemoglobin 30.4 pg (27.0-31.0); Mean Corpuscular Volume 93.2 fl (78.0-98.0); Mean Platelet Volume 11.1 fL (7.4-10.4); Platelet Count 65 10x3/uL (130-400); RBC Distribution Width 18.4 % (11.5-14.5); Red Blood Cell (RBC) Count 2.36 mill/uL (4.20-5.40); White Blood Cell (WBC) Count 2.3 10x3/uL (4.8-10.8)
[2022-05-15] MEDS ORDERED: Famotidine/PF 20 mg/2ml Vial ONE (13:03)
[2022-05-15] MEDS ORDERED: Famotidine/PF 20 mg/2ml Vial SLOW IVP SCH (13:15)
[2022-05-15] MEDS ORDERED: Ipratropium/Albuterol 3 ML NEB ONE (13:27)
[2022-05-15] MEDS ORDERED: Ipratropium/Albuterol 3 ML NEB NEB PRN (13:29)
[2022-05-15 14:46] LABS: ALT (SGPT) 10 U/L (8-55); AST (SGOT) 13 U/L (5-34); Albumin 3.7 g/dL (3.5-5.0); Alkaline Phosphatase 55 U/L (40-110); Anion Gap 14 mmol/L (10-20); BUN (Urea Nitrogen) 25 mg/dL (7.0-18.7); Bilirubin, Direct 0.4 mg/dL (0.1-0.3); Bilirubin, Total 1.1 mg/dL (0.2-1.2); Calc. Creatinine Clearance 0 mL/min (70-130); Calcium 8.9 mg/dL (7.8-10.44); Carbon Dioxide 19 mmol/L (22-29); Chloride 109 mmol/L (98-107); Estimated GFR 44; Globulin 1.8 g/dL (2.4-3.5); Glucose 205 mg/dL (70-105); Phosphorus 4.3 mg/dL (2.3-4.7); Potassium 4.2 mmol/L (3.5-5.1); Protein, Total 5.5 g/dL (6.0-8.3); Sodium 138 mmol/L (136-145); Uric Acid 6.7 mg/dL (2.6-6.0)
[2022-05-16] MEDS ORDERED: Dextrose 50% Abboject 50 ML SYRINGE SLOW IVP PRN (10:44)
[2022-05-16] MEDS ORDERED: Dextrose 5% in Water 1,000 ML IV PRN (10:44)
[2022-05-16] MEDS ORDERED: Lactated Ringer's 1,000 ML IV SCH (10:45)
[2022-05-16] MEDS: Acetaminophen 325 MG TAB PO PRN (11:51)
[2022-05-16] MEDS: Ondansetron PF 4 MG/2 ML Vial IVP PRN ×2 (11:52→23:14)
[2022-05-16] MEDS: HumaLOG 300 UNITS/3 ML VIAL SC PRN ×3 (11:52→21:05)
[2022-05-16] MEDS: Sodium Bicarbonate Tab 325 MG TAB PO SCH ×3 (15:17→21:04)
[2022-05-16] MEDS: Benzocaine (Dental) 7 GM TUBE TOP PRN ×2 (15:19→21:07)
[2022-05-16 15:37] VITALS: BMI 41.4
[2022-05-16] MEDS ORDERED: HumuLIN 70/30 (300 UNITS/3 ML VIAL) SC SCH (21:00)
[2022-05-16] MEDS ORDERED: Pregabalin 25 MG CAP PO SCH (21:00)
[2022-05-16] MEDS: Gabapentin 300 MG CAP PO SCH (21:03)
[2022-05-16] MEDS: Carvedilol 6.25 MG TAB PO SCH (21:04)
[2022-05-17 05:58] LABS: Hemoglobin 7.4 g/dL (12.0-16.0); Mean Corpuscular Hemoglobin 30.7 pg (27.0-31.0); Mean Corpuscular Volume 90.3 fl (78.0-98.0); RBC Distribution Width 17.5 % (11.5-14.5); Red Blood Cell (RBC) Count 2.42 mill/uL (4.20-5.40); White Blood Cell (WBC) Count 2.5 10x3/uL (4.8-10.8)
[2022-05-17 06:17] LABS: Anion Gap 11 mmol/L (10-20); BUN (Urea Nitrogen) 21 mg/dL (7.0-18.7); Calc. Creatinine Clearance 84 mL/min (70-130); Calcium 8.8 mg/dL (7.8-10.44); Carbon Dioxide 22 mmol/L (22-29); Chloride 108 mmol/L (98-107); Estimated GFR 45; Glucose 162 mg/dL (70-105); Potassium 4.5 mmol/L (3.5-5.1); Sodium 136 mmol/L (136-145)
[2022-05-17 06:46] LABS: #Eosinphils 0.1 thou/uL (0.0-0.7); #Lymphocytes 0.7 thou/uL (1.20-3.40); #Monocytes 0.4 thou/uL (0.11-0.59); #Neutrophils 1.3 thou/uL (1.40-6.50); %Basophils 0.2 % (0.0-1.0); %Eosinophils 3.2 % (0.0-10.0); %Lymphocytes 28.3 % (21.0-51.0); %Monocytes 14.3 % (0.0-10.0); Anisocytosis SLIGHT = 6-15 cells (100X) (0-5/hpf); Eosinophils 6 % (0-10); Lymphocytes 26 % (21-51); MDiff Complete? YES; Mean Platelet Volume 12.2 fL (7.4-10.4); Monocytes 7 % (0-10); Myelocyte 1 % (0-0); Neutrophil 59 % (42-75); Platelet Count 42 10x3/uL (130-400); Platelet Morphology Comment Appears Decreased; Polychromasia SLIGHT = 2-3 cells (100X) (0-2/hpf); Reactive Lymphocytes 1 % (0-10); Tear Drops SLIGHT = 2-5 cells (100X) (0-1/hpf)
[2022-05-17] MEDS ORDERED: HumaLOG 300 UNITS/3 ML VIAL SC PRN ×2 (08:18)
[2022-05-17 08:25] VITALS: TEMP 98.4
[2022-05-17] MEDS ORDERED: NPH, Human Insulin Isophane 300 UNIT/3 ML VIAL SC SCH (09:00)
[2022-05-17] MEDS ORDERED: Amlodipine 5 MG TAB PO SCH (09:00)
[2022-05-17] MEDS: Gabapentin 300 MG CAP PO SCH (09:45)
[2022-05-17] MEDS: Carvedilol 6.25 MG TAB PO SCH (09:47)
[2022-05-17] MEDS: Sodium Bicarbonate Tab 325 MG TAB PO SCH (09:51)
[2022-05-17] MEDS ORDERED: Insulin NPH Human Isophane 100 UNIT/ML (10 ML VIAL) SC SCH ×2 (11:15→21:00)
[2022-05-17 11:46] VITALS: BP 111/81
[2022-05-17] MEDS: Acetaminophen 325 MG TAB PO PRN ×2 (12:48→12:51)
[2022-05-17] MEDS ORDERED: Atorvastatin Calcium 10 MG TAB PO SCH (21:00)
== END 2022-05-17 15:15 | disposition home or self-care (01) | DRG 391 ==
LOC: ONC/OP 06:37 → MSONC 16:43 → ONC/OP 05-16 10:16 → OBSVTOIN 05-17 14:31
PROVIDERS: ADMIT Internal Medicine; ATTEND Internal Medicine
PROC: 3E0330M Introduction of Antineoplastic, Monoclonal Antibody, into Peripheral Vein, Percutaneous Approach (ICD-10-PCS; principal; 2022-05-15)
DX: R11.2 Nausea with vomiting, unspecified (principal); J96.01 Acute respiratory failure with hypoxia; D59.10 Autoimmune hemolytic anemia, unspecified; Z68.41 Body mass index [BMI] 40.0-44.9, adult; D61.818 Other pancytopenia; T45.1X5A Adverse effect of antineoplastic and immunosuppressive drugs, initial encounter; Z20.822 Contact with and (suspected) exposure to COVID-19; R62.50 Unspecified lack of expected normal physiological development in childhood; J45.909 Unspecified asthma, uncomplicated; R51.9 Headache, unspecified; E78.5 Hyperlipidemia, unspecified; E10.65 Type 1 diabetes mellitus with hyperglycemia; E10.22 Type 1 diabetes mellitus with diabetic chronic kidney disease; E66.01 Morbid (severe) obesity due to excess calories; N18.30 Chronic kidney disease, stage 3 unspecified; Z88.1 Allergy status to other antibiotic agents; Z88.2 Allergy status to sulfonamides; Z88.8 Allergy status to other drugs, medicaments and biological substances; Z79.899 Other long term (current) drug therapy; Z79.4 Long term (current) use of insulin
CPT/HCPCS: 36415; 36416; 80048; 80053; 82248; 83615; 84100; 84550; 85025; 93005; 93010; 94640; 96374; 96375; 96376; 96413; 96415; 99213; G0378; G0463; J1200; J1815; J2405; J7030; J7120; J7620; Q5115; S0028; U0003; U0005

== ENCOUNTER 2022-05-22 17:49 | Inpatient (IN) | payer OTHER ==
[2022-05-22 19:41] LABS: Hemoglobin 8.5 g/dL (12.0-16.0); Mean Corpuscular HGB CONC 33.9 g/dL (32.0-36.0); Mean Corpuscular Hemoglobin 30.6 pg (27.0-31.0); Mean Corpuscular Volume 90.3 fl (78.0-98.0); Mean Platelet Volume 10.4 fL (7.4-10.4); Platelet Count 68 10x3/uL (130-400); RBC Distribution Width 17.8 % (11.5-14.5); Red Blood Cell (RBC) Count 2.76 mill/uL (4.20-5.40); White Blood Cell (WBC) Count 1.7 10x3/uL (4.8-10.8)
[2022-05-22 19:52] LABS: ALT (SGPT) 12 U/L (8-55); AST (SGOT) 11 U/L (5-34); Alkaline Phosphatase 63 U/L (40-110); Anion Gap 17 mmol/L (10-20); BUN (Urea Nitrogen) 25 mg/dL (7.0-18.7); Bilirubin, Total 0.8 mg/dL (0.2-1.2); Calc. Creatinine Clearance 0 mL/min (70-130); Calcium 8.8 mg/dL (7.8-10.44); Carbon Dioxide 15 mmol/L (22-29); Chloride 104 mmol/L (98-107); Estimated GFR 34; Globulin 2.1 g/dL (2.4-3.5); Magnesium 1.5 mg/dL (1.6-2.6); Phosphorus 2.8 mg/dL (2.3-4.7); Protein, Total 6.1 g/dL (6.0-8.3); Sodium 129 mmol/L (136-145)
[2022-05-22 19:57] LABS: Glucose 657 mg/dL (70-105); Potassium 6.5 mmol/L (3.5-5.1)
[2022-05-22 20:12] LABS: Lymphocytes 13 % (21-51); MDiff Complete? YES; Monocytes 2 % (0-10); Neutrophil 85 % (42-75); Platelet Morphology Comment Appears Decreased; RBC Morphology Normal
[2022-05-22 20:23] LABS: Bacteria/HPF None Seen HPF (None Seen); Bilirubin Negative (Negative); Blood, Urine Trace (Negative); Clarity Clear (Clear); Glucose, Urine (Dipstick) Greater than 1000 mg/dL (Negative); Ketone, Urine Negative (Negative); Leukocyte Negative Leu/uL (Negative); Nitrite Negative (Negative); Protein, Urine (Dipstick) 70 mg/dL (Neg-Trace); RBC/HPF 0-3 HPF (0-3); Specific Gravity, Urine 1.017 (1.002-1.036); Urobilinogen Normal mg/dL (Less than 2); WBC/HPF 0-3 HPF (0-3); pH, Urine 6.5 (5.0-9.0)
[2022-05-22 20:28] LABS: #Lymphocytes 0.4 thou/uL (1.20-3.40); #Neutrophils 1.7 thou/uL (1.40-6.50); %Basophils 0.2 % (0.0-1.0); %Eosinophils 0.8 % (0.0-10.0); %Lymphocytes 18.6 % (21.0-51.0); %Monocytes 1.9 % (0.0-10.0); %Neutrophils 78.4 % (42.0-75.0); Hemoglobin 8.3 g/dL (12.0-16.0); Mean Corpuscular HGB CONC 34.5 g/dL (32.0-36.0); Mean Corpuscular Hemoglobin 30.8 pg (27.0-31.0); Mean Corpuscular Volume 89.2 fl (78.0-98.0); Mean Platelet Volume 10.8 fL (7.4-10.4); Platelet Count 64 10x3/uL (130-400); RBC Distribution Width 18.1 % (11.5-14.5); Red Blood Cell (RBC) Count 2.71 mill/uL (4.20-5.40); White Blood Cell (WBC) Count 2.2 10x3/uL (4.8-10.8)
[2022-05-22] MEDS ORDERED: HumaLOG 300 UNITS/3 ML VIAL ONE (20:29)
[2022-05-22] MEDS ORDERED: Calcium Gluc 4.6 MEQ/10 ML (100 MG/ML) ONE (20:29)
[2022-05-22 20:39] LABS: Anion Gap 14 mmol/L (10-20); BUN (Urea Nitrogen) 25 mg/dL (7.0-18.7); Calc. Creatinine Clearance 0 mL/min (70-130); Calcium 8.8 mg/dL (7.8-10.44); Carbon Dioxide 17 mmol/L (22-29); Chloride 104 mmol/L (98-107); Estimated GFR 35; Sodium 129 mmol/L (136-145)
[2022-05-22] MEDS ORDERED: Magnesium 2 GM/50 ML(in water) 2 GM in Premix Bag 1 BAG IVPB SCH (20:45)
[2022-05-22 20:46] LABS: Glucose 639 mg/dL (70-105)
[2022-05-22 20:48] LABS: Actual Bicarbonate (HCO3v) 19 mEq/L (22-28); Calcium, Ionized (venous) 1.14 mmol/L (1.16-1.32); Chloride (VBG) 100 mmol/L (98-106); Hemoglobin (Hb) 9.3 g/dL (11.7-15.5); Potassium (VBG) 5.69 mmol/L (3.70-5.30); Sodium 129.5 mmol/L (133-146); pH (venous) 7.28 (7.32-7.43)
[2022-05-22] MEDS ORDERED: Ipratropium/Albuterol 3 ML NEB ONE (20:52)
[2022-05-22] MEDS ORDERED: Albuterol 2.5 MG/0.5 ML NEB ONE (20:52)
[2022-05-22] MEDS ORDERED: Dextrose 5% in Water 1,000 ML IV PRN (21:58)
[2022-05-22] MEDS ORDERED: Dextrose 50% Abboject 50 ML SYRINGE SLOW IVP PRN (21:58)
[2022-05-22] MEDS ORDERED: Albuterol 200 PUFF (6.7GM INHALER) INH PRN (22:04)
[2022-05-22] MEDS ORDERED: hydrALAZINE 20 MG/ML VIAL SLOW IVP PRN (22:05)
[2022-05-22] MEDS ORDERED: Insulin Glargine 30 UNITS/0.3 ML VIAL SC SCH (22:15)
[2022-05-22 22:37] LABS: SARS-CoV-2 NAA Rapid Test Not Detected (NotDetected)
[2022-05-22] MEDS: Sodium Chloride 0.9% 1,000 ML IV SCH (23:35)
[2022-05-23] MEDS: HumaLOG 300 UNITS/3 ML VIAL SC PRN ×6 (00:22→22:42)
[2022-05-23] MEDS: Ipratropium/Albuterol 3 ML NEB NEB SCH ×2 (01:23→06:40)
[2022-05-23] MEDS ORDERED: Melatonin 3 MG TAB PO SCH (02:30)
[2022-05-23 04:16] LABS: Glucose 753 mg/dL (70-105); Phosphorus 2.6 mg/dL (2.3-4.7)
[2022-05-23 04:19] LABS: Anion Gap 14 mmol/L (10-20); BUN (Urea Nitrogen) 26 mg/dL (7.0-18.7); Calc. Creatinine Clearance 63 mL/min (70-130); Calcium 8.4 mg/dL (7.8-10.44); Carbon Dioxide 17 mmol/L (22-29); Chloride 102 mmol/L (98-107); Estimated GFR 32; Magnesium 1.7 mg/dL (1.6-2.6); Potassium 5.5 mmol/L (3.5-5.1); Sodium 127 mmol/L (136-145)
[2022-05-23 04:22] LABS: Glucose 753 mg/dL (70-105)
[2022-05-23] MEDS ORDERED: Insulin Regular 300 UNITS/3 ML VIAL IVP SCH ×2 (04:30→04:36)
[2022-05-23 04:34] LABS: Hemoglobin 7.3 g/dL (12.0-16.0); Mean Corpuscular HGB CONC 34.1 g/dL (32.0-36.0); Mean Corpuscular Hemoglobin 31.1 pg (27.0-31.0); Mean Corpuscular Volume 91.1 fl (78.0-98.0); Mean Platelet Volume 11.2 fL (7.4-10.4); Platelet Count 57 10x3/uL (130-400); RBC Distribution Width 17.9 % (11.5-14.5); Red Blood Cell (RBC) Count 2.33 mill/uL (4.20-5.40); White Blood Cell (WBC) Count 1.8 10x3/uL (4.8-10.8)
[2022-05-23 04:35] LABS: Hypochromia SLIGHT = 6-15 cells (100X) (0-5/hpf); Lymphocytes 4 % (21-51); MDiff Complete? YES; Monocytes 28 % (0-10); Neutrophil 68 % (42-75); Platelet Morphology Comment Appears Decreased
[2022-05-23 05:07] LABS: Glucose 752 mg/dL (70-105)
[2022-05-23] MEDS: Sodium Chloride 0.9% 1,000 ML IV SCH ×2 (06:24→16:20)
[2022-05-23 07:39] LABS: Glucose 635 mg/dL (70-105)
[2022-05-23] MEDS: Albuterol 200 PUFF (6.7GM INHALER) INH SCH ×3 (08:05→18:55)
[2022-05-23] MEDS: Carvedilol 6.25 MG TAB PO SCH ×2 (08:21→22:37)
[2022-05-23] MEDS: Empagliflozin 10 MG TAB PO SCH ×2 (08:21→08:43)
[2022-05-23] MEDS: Famotidine 20 MG TAB PO SCH (08:21)
[2022-05-23] MEDS: Atorvastatin Calcium 10 MG TAB PO SCH (08:21)
[2022-05-23] MEDS: Insulin Glargine 30 UNITS/0.3 ML VIAL SC SCH ×2 (08:22→22:38)
[2022-05-23] MEDS: Amlodipine 5 MG TAB PO SCH (08:22)
[2022-05-23 11:34] LABS: Albumin 3.3 g/dL (3.5-5.0); Anion Gap 19 mmol/L (10-20); BUN (Urea Nitrogen) 28 mg/dL (7.0-18.7); BUN/Creatinine Ratio 13.66; Calc. Creatinine Clearance 64 mL/min (70-130); Calcium 8.6 mg/dL (7.8-10.44); Carbon Dioxide 12 mmol/L (22-29); Chloride 104 mmol/L (98-107); Estimated GFR 32; Magnesium 1.7 mg/dL (1.6-2.6); Phosphorus 2.7 mg/dL (2.3-4.7); Potassium 5.7 mmol/L (3.5-5.1); Sodium 129 mmol/L (136-145)
[2022-05-23 12:13] LABS: Glucose 587 mg/dL (70-105)
[2022-05-23] MEDS ORDERED: LOKELMA 10 GM PACKET PO SCH (13:30)
[2022-05-23 13:43] LABS: Anion Gap 16 mmol/L (10-20); BUN (Urea Nitrogen) 28 mg/dL (7.0-18.7); Calc. Creatinine Clearance 69 mL/min (70-130); Calcium 8.9 mg/dL (7.8-10.44); Carbon Dioxide 18 mmol/L (22-29); Chloride 104 mmol/L (98-107); Estimated GFR 35; Potassium 5.5 mmol/L (3.5-5.1); Sodium 132 mmol/L (136-145)
[2022-05-23 14:16] LABS: Glucose 607 mg/dL (70-105)
[2022-05-23] MEDS ORDERED: Ondansetron PF 4 MG/2 ML Vial IVP PRN (15:26)
[2022-05-23 15:33] LABS: Glucose 473 mg/dL (70-105)
[2022-05-23] MEDS: Sodium Bicarbonate 50 MEQ in Sodium Chloride 0.45% 1,000 ML IV SCH (16:18)
[2022-05-23] MEDS: Sodium Bicarbonate Tab 325 MG TAB PO SCH ×2 (16:19→22:37)
[2022-05-23] MEDS ORDERED: Insulin Glargine 30 UNITS/0.3 ML VIAL SC SCH (21:00)
[2022-05-23] MEDS: Melatonin 3 MG TAB PO PRN (23:44)
[2022-05-24] MEDS: Sodium Bicarbonate 50 MEQ in Sodium Chloride 0.45% 1,000 ML IV SCH ×3 (00:17→09:54)
[2022-05-24] MEDS: HumaLOG 300 UNITS/3 ML VIAL SC PRN ×5 (00:32→20:20)
[2022-05-24] MEDS: Albuterol 200 PUFF (6.7GM INHALER) INH SCH ×4 (01:08→18:37)
[2022-05-24] MEDS: Sodium Chloride 0.9% 1,000 ML IV SCH ×2 (05:20→09:50)
[2022-05-24 08:43] LABS: Hemoglobin 7.7 g/dL (12.0-16.0); Mean Corpuscular Hemoglobin 32.7 pg (27.0-31.0); Mean Corpuscular Volume 90.8 fl (78.0-98.0); Mean Platelet Volume 9.9 fL (7.4-10.4); Platelet Count 66 10x3/uL (130-400); RBC Distribution Width 18.4 % (11.5-14.5); Red Blood Cell (RBC) Count 2.34 mill/uL (4.20-5.40)
[2022-05-24 08:54] LABS: Anion Gap 10 mmol/L (10-20); BUN (Urea Nitrogen) 30 mg/dL (7.0-18.7); BUN/Creatinine Ratio 18.29; Calc. Creatinine Clearance 79 mL/min (70-130); Calcium 7.9 mg/dL (7.8-10.44); Carbon Dioxide 22 mmol/L (22-29); Chloride 111 mmol/L (98-107); Estimated GFR 42; Glucose 180 mg/dL (70-105); Magnesium 1.4 mg/dL (1.6-2.6); Phosphorus 3.1 mg/dL (2.3-4.7); Potassium 4.1 mmol/L (3.5-5.1); Sodium 139 mmol/L (136-145)
[2022-05-24] MEDS: Atorvastatin Calcium 10 MG TAB PO SCH (09:49)
[2022-05-24] MEDS: Insulin Glargine 30 UNITS/0.3 ML VIAL SC SCH ×2 (09:49→20:04)
[2022-05-24] MEDS: Carvedilol 6.25 MG TAB PO SCH ×2 (09:49→20:04)
[2022-05-24] MEDS: Amlodipine 5 MG TAB PO SCH (09:50)
[2022-05-24] MEDS: Famotidine 20 MG TAB PO SCH ×3 (10:03→20:04)
[2022-05-24 11:02] LABS: Hypochromia SLIGHT = 6-15 cells (100X) (0-5/hpf); Lymphocytes 44 % (21-51); MDiff Complete? YES; Metamyelocyte 1 % (0-0); Neutrophil 55 % (42-75); Nucleated RBC 3 % (0); Ovalocytes SLIGHT = 2-5 cells (100X) (0-1/hpf); Platelet Morphology Comment Appears Decreased; Polychromasia SLIGHT = 2-3 cells (100X) (0-2/hpf); Tear Drops SLIGHT = 2-5 cells (100X) (0-1/hpf)
[2022-05-24] MEDS ORDERED: Magnesium Sulfate In Water 4 GM in Premix Bag 1 BAG IVPB SCH (11:45)
[2022-05-24] MEDS: Sodium Bicarbonate Tab 325 MG TAB PO SCH ×3 (12:14→20:03)
[2022-05-24] MEDS ORDERED: Acetaminophen 325 MG TAB PO PRN ×2 (21:44→22:01)
[2022-05-24] MEDS: Melatonin 3 MG TAB PO PRN (22:25)
[2022-05-25] MEDS: Albuterol 200 PUFF (6.7GM INHALER) INH SCH ×2 (00:40→06:24)
[2022-05-25 08:49] VITALS: BP 111/78; TEMP 97.9
[2022-05-25 09:03] LABS: Albumin 3.3 g/dL (3.5-5.0); Anion Gap 11 mmol/L (10-20); BUN (Urea Nitrogen) 30 mg/dL (7.0-18.7); BUN/Creatinine Ratio 18.52; Calc. Creatinine Clearance 80 mL/min (70-130); Calcium 8.5 mg/dL (7.8-10.44); Carbon Dioxide 21 mmol/L (22-29); Chloride 110 mmol/L (98-107); Estimated GFR 43; Glucose 107 mg/dL (70-105); Potassium 4.3 mmol/L (3.5-5.1); Sodium 138 mmol/L (136-145)
[2022-05-25 09:27] LABS: #Lymphocytes 0.8 thou/uL (1.20-3.40); #Monocytes 0.3 thou/uL (0.11-0.59); #Neutrophils 1.5 thou/uL (1.40-6.50); %Basophils 0.8 % (0.0-1.0); %Eosinophils 1.4 % (0.0-10.0); %Lymphocytes 31.3 % (21.0-51.0); %Monocytes 9.7 % (0.0-10.0); %Neutrophils 56.8 % (42.0-75.0); Hemoglobin 7.9 g/dL (12.0-16.0); Mean Corpuscular HGB CONC 33.9 g/dL (32.0-36.0); Mean Corpuscular Hemoglobin 30.7 pg (27.0-31.0); Mean Corpuscular Volume 90.7 fl (78.0-98.0); Platelet Count 65 10x3/uL (130-400); RBC Distribution Width 18.5 % (11.5-14.5); Red Blood Cell (RBC) Count 2.56 mill/uL (4.20-5.40); White Blood Cell (WBC) Count 2.7 10x3/uL (4.8-10.8)
[2022-05-25] MEDS: Sodium Bicarbonate Tab 325 MG TAB PO SCH (10:11)
[2022-05-25] MEDS: Amlodipine 5 MG TAB PO SCH (10:11)
[2022-05-25] MEDS: Carvedilol 6.25 MG TAB PO SCH (10:12)
[2022-05-25] MEDS: Famotidine 20 MG TAB PO SCH (10:12)
[2022-05-25] MEDS: Atorvastatin Calcium 10 MG TAB PO SCH (10:13)
[2022-05-25] MEDS: Insulin Glargine 30 UNITS/0.3 ML VIAL SC SCH (10:13)
== END 2022-05-25 11:40 | disposition home or self-care (01) | DRG 638 ==
LOC: ERS 17:49 → SUATTDRO 17:49 → 2NO 21:36 → OBSVTOIN 05-23 09:52 → T4-B 05-24 15:58
PROVIDERS: ADMIT Family Medicine; ATTEND Internal Medicine
DX: E10.65 Type 1 diabetes mellitus with hyperglycemia (principal); D59.10 Autoimmune hemolytic anemia, unspecified; D61.818 Other pancytopenia; E87.20 Acidosis, unspecified; N17.9 Acute kidney failure, unspecified; N13.30 Unspecified hydronephrosis; F79 Unspecified intellectual disabilities; Z20.822 Contact with and (suspected) exposure to COVID-19; E87.5 Hyperkalemia; N18.30 Chronic kidney disease, stage 3 unspecified; E83.42 Hypomagnesemia; J45.20 Mild intermittent asthma, uncomplicated; D63.1 Anemia in chronic kidney disease; E10.22 Type 1 diabetes mellitus with diabetic chronic kidney disease; I12.9 Hypertensive chronic kidney disease with stage 1 through stage 4 chronic kidney disease, or unspecified chronic kidney disease; Z88.1 Allergy status to other antibiotic agents; Z88.2 Allergy status to sulfonamides; Z88.8 Allergy status to other drugs, medicaments and biological substances; Z79.84 Long term (current) use of oral hypoglycemic drugs; Z79.899 Other long term (current) drug therapy; Z91.14 Patient's other noncompliance with medication regimen
CPT/HCPCS: 36415; 36416; 71045; 80048; 80069; 81003; 81015; 82010; 82805; 83735; 84100; 85025; 93005; 94640; 96361; 96374; 96375; G0378; J0610; J1650; J1815; J2405; J3475; J7050; J7611; J7620

== ENCOUNTER 2022-05-29 06:58 | Day surgery (SDC) | payer OTHER ==
[2022-05-29] MEDS ORDERED: Famotidine/PF 20 MG in Sodium Chloride 0.9% 50 ML IVPB SCH (07:00)
[2022-05-29] MEDS ORDERED: Acetaminophen 500 MG TAB PO SCH (07:00)
[2022-05-29] MEDS ORDERED: HumaLOG 300 UNITS/3 ML VIAL SC PRN (08:55)
[2022-05-29] MEDS ORDERED: Dextrose 50% Abboject 50 ML SYRINGE IVP PRN (09:00)
[2022-05-29] MEDS ORDERED: Dextrose 5% in Water 1,000 ML IV PRN (09:00)
[2022-05-29] MEDS ORDERED: Acetaminophen 500 MG TAB ONE (09:48)
[2022-05-29 11:20] LABS: Hemoglobin 8.9 g/dL (12.0-16.0); Mean Corpuscular HGB CONC 32.4 g/dL (32.0-36.0); Mean Corpuscular Hemoglobin 29.9 pg (27.0-31.0); Mean Platelet Volume 10.7 fL (7.4-10.4); Platelet Count 98 10x3/uL (130-400); RBC Distribution Width 18.2 % (11.5-14.5); Red Blood Cell (RBC) Count 2.98 mill/uL (4.20-5.40); White Blood Cell (WBC) Count 3.4 10x3/uL (4.8-10.8)
[2022-05-29 12:16] LABS: Anisocytosis MODERATE=16-30 cells (100X) (0-5/hpf); Band 5 % (5-11); Eosinophils 1 % (0-10); Lymphocytes 24 % (21-51); MDiff Complete? YES; Monocytes 9 % (0-10); Neutrophil 60 % (42-75); Platelet Morphology Comment Appears Decreased; Polychromasia MODERATE = 3-4 cells (100X) (0-2/hpf); Tear Drops SLIGHT = 2-5 cells (100X) (0-1/hpf)
[2022-05-29] MEDS ORDERED: Ondansetron 2MG/ML MDV 10 MG in Sodium Chloride 0.9% 50 ML IVPB SCH (14:15)
[2022-05-29 18:07] VITALS: BP 179/96; TEMP 98.1
== END 2022-05-29 15:20 | disposition home or self-care (01) ==
LOC: ONC/OP 06:58
PROVIDERS: ATTEND Internal Medicine Medical Oncology
DX: D59.10 Autoimmune hemolytic anemia, unspecified (principal); D80.1 Nonfamilial hypogammaglobulinemia; Z88.1 Allergy status to other antibiotic agents; Z88.2 Allergy status to sulfonamides; Z88.8 Allergy status to other drugs, medicaments and biological substances
CPT/HCPCS: 36416; 85025; 96367; 96375; 96413; 96415; J1100; J1815; J2405; J7030; Q5115; S0028

== ENCOUNTER 2022-06-05 06:17 | Day surgery (SDC) | payer OTHER ==
[2022-06-05] MEDS ORDERED: Famotidine/PF 20 MG in Sodium Chloride 0.9% 50 ML IVPB SCH (07:30)
[2022-06-05] MEDS ORDERED: Acetaminophen 500 MG TAB PO SCH (07:30)
[2022-06-05] MEDS ORDERED: Acetaminophen 500 MG TAB ONE (08:53)
[2022-06-05 12:20] VITALS: BP 129/86; TEMP 97.9
[2022-06-05 12:38] LABS: #Eosinphils 0.1 thou/uL (0.0-0.7); #Monocytes 0.5 thou/uL (0.11-0.59); #Neutrophils 2.1 thou/uL (1.40-6.50); %Basophils 0.4 % (0.0-1.0); %Eosinophils 2.3 % (0.0-10.0); %Lymphocytes 27.7 % (21.0-51.0); %Monocytes 13.5 % (0.0-10.0); %Neutrophils 56.1 % (42.0-75.0); Hemoglobin 10.2 g/dL (12.0-16.0); Mean Corpuscular HGB CONC 32.9 g/dL (32.0-36.0); Mean Corpuscular Hemoglobin 30.4 pg (27.0-31.0); Mean Corpuscular Volume 92.4 fl (78.0-98.0); Mean Platelet Volume 11.8 fL (7.4-10.4); Platelet Count 84 10x3/uL (130-400); RBC Distribution Width 18.2 % (11.5-14.5); Red Blood Cell (RBC) Count 3.35 mill/uL (4.20-5.40); White Blood Cell (WBC) Count 3.7 10x3/uL (4.8-10.8)
== END 2022-06-05 13:26 | disposition home or self-care (01) ==
LOC: ONC/OP 06:17
PROVIDERS: ATTEND Internal Medicine Medical Oncology
DX: D59.19 Other autoimmune hemolytic anemia (principal); D80.1 Nonfamilial hypogammaglobulinemia; Z88.1 Allergy status to other antibiotic agents; Z88.2 Allergy status to sulfonamides; Z88.8 Allergy status to other drugs, medicaments and biological substances; Z79.620 Long term (current) use of immunosuppressive biologic
CPT/HCPCS: 85025; 96375; 96413; 96415; J1100; J7030; Q5115; S0028

== ENCOUNTER 2022-06-18 11:57 | Inpatient (IN) | payer OTHER ==
[2022-06-18 12:31] LABS: Hemoglobin 10.2 g/dL (12.0-16.0); Mean Corpuscular HGB CONC 35.4 g/dL (32.0-36.0); Mean Corpuscular Hemoglobin 30.7 pg (27.0-31.0); Mean Corpuscular Volume 86.8 fl (78.0-98.0); Mean Platelet Volume 6.3 fL (7.4-10.4); Platelet Count 58 10x3/uL (130-400); RBC Distribution Width 16.1 % (11.5-14.5); Red Blood Cell (RBC) Count 3.32 mill/uL (4.20-5.40)
[2022-06-18 12:49] LABS: ALT (SGPT) 12 U/L (8-55); AST (SGOT) 13 U/L (5-34); Albumin 3.3 g/dL (3.5-5.0); Alkaline Phosphatase 45 U/L (40-110); Anion Gap 15 mmol/L (10-20); BUN (Urea Nitrogen) 29 mg/dL (7.0-18.7); Bilirubin, Total 0.5 mg/dL (0.2-1.2); Calc. Creatinine Clearance 0 mL/min (70-130); Calcium 8.4 mg/dL (7.8-10.44); Carbon Dioxide 14 mmol/L (22-29); Chloride 106 mmol/L (98-107); Estimated GFR 31; Globulin 1.9 g/dL (2.4-3.5); Glucose 371 mg/dL (70-105); Protein, Total 5.2 g/dL (6.0-8.3); Sodium 130 mmol/L (136-145)
[2022-06-18 13:07] LABS: Anisocytosis SLIGHT = 6-15 cells (100X) (0-5/hpf); Band 7 % (5-11); Lymphocytes 7 % (21-51); MDiff Complete? YES; Monocytes 3 % (0-10); Neutrophil 83 % (42-75); Platelet Morphology Comment Appears Decreased; Polychromasia SLIGHT = 2-3 cells (100X) (0-2/hpf)
[2022-06-18 14:20] LABS: CKMB 0.3 ng/mL (0-6.6)
[2022-06-18] MEDS ORDERED: Cefepime 2 GM VIAL ONE (15:39)
[2022-06-18] MEDS ORDERED: Aspirin Chewable 81 MG TAB ONE ×2 (15:39→15:45)
[2022-06-18] MEDS ORDERED: Vancomycin 1 GM/200 ML (FROZEN) BAG ONE (15:47)
[2022-06-18 15:50] LABS: Lactic Acid 3.3 mmol/L (0.5-2.2)
[2022-06-18 16:03] LABS: INR-International Normal Ratio 1.1; PTT 35.7 sec (22.9-36.1); Prothrombin Time 15.1 sec (12.0-14.7)
[2022-06-18] MEDS ORDERED: Dextrose 50% Abboject 50 ML SYRINGE SLOW IVP PRN (16:16)
[2022-06-18] MEDS ORDERED: Dextrose 5% in Water 1,000 ML IV PRN (16:16)
[2022-06-18] MEDS ORDERED: Sodium Bicarbonate 150 MEQ in Dextrose 5% in Water 1,000 ML IV SCH ×2 (16:30→18:48)
[2022-06-18] MEDS ORDERED: fentaNYL 50 mcg/mL 1 mL Vial SLOW IVP PRN (16:48)
[2022-06-18] MEDS ORDERED: Insulin NPH Human Isophane 100 UNITS/ML (10 ML VIAL) SC SCH (17:00)
[2022-06-18 17:05] LABS: Magnesium 1.4 mg/dL (1.6-2.6)
[2022-06-18 17:12] LABS: Phosphorus 1.4 mg/dL (2.3-4.7)
[2022-06-18] MEDS ORDERED: Electrolyte Replacement Protocol 1 EACH FS SCH (18:15)
[2022-06-18] MEDS: HumaLOG 300 UNITS/3 ML VIAL SC PRN (18:47)
[2022-06-18 18:58] LABS: Hemoglobin 9.4 g/dL (12.0-16.0); Platelet Count 50 10x3/uL (130-400)
[2022-06-18] MEDS ORDERED: Piperacillin/Tazobactam 3.375 GM in Sodium Chloride 0.9% 100 ML IVPB SCH (19:00)
[2022-06-18 19:24] LABS: Troponin I 0.032 ng/mL (< 0.028)
[2022-06-18] MEDS ORDERED: Magnesium 2 GM/50 ML(in water) 2 GM in Premix Bag 1 BAG IVPB SCH (20:00)
[2022-06-18] MEDS ORDERED: Potassium Phosphate 15 MMOL in Sodium Chloride 0.9% 250 ML 250 ML IVPB SCH (20:00)
[2022-06-18] MEDS: Heparin 25,000 units/D5W 500 ML IVPB SCH (20:02)
[2022-06-18] MEDS: Pantoprazole 40 MG VIAL IVP SCH (20:02)
[2022-06-18] MEDS: Sodium Bicarbonate 150 MEQ in Dextrose 5% in Water 1,000 ML IV SCH (20:03)
[2022-06-18] MEDS: Heparin 10,000 UNITS/ 10 ML VIAL SLOW IVP SCH (20:07)
[2022-06-18] MEDS ORDERED: Vancomycin Dose by Levels Sliding Scale (Wt > 99) FS SCH (20:30)
[2022-06-18] MEDS ORDERED: Vancomycin 1 GM in Premix Bag 1 BAG IVPB SCH (20:30)
[2022-06-18] MEDS ORDERED: Heparin 5,000 UNITS/ML VIAL SC SCH (21:00)
[2022-06-18 21:22] LABS: Albumin 3.2 g/dL (3.5-5.0); Anion Gap 16 mmol/L (10-20); BUN (Urea Nitrogen) 33 mg/dL (7.0-18.7); BUN/Creatinine Ratio 12.31; Calc. Creatinine Clearance 49 mL/min (70-130); Calcium 8.5 mg/dL (7.8-10.44); Carbon Dioxide 15 mmol/L (22-29); Chloride 105 mmol/L (98-107); Estimated GFR 23; Glucose 335 mg/dL (70-105); Magnesium 1.4 mg/dL (1.6-2.6); Phosphorus 2.3 mg/dL (2.3-4.7); Potassium 5.3 mmol/L (3.5-5.1); Sodium 131 mmol/L (136-145)
[2022-06-18] MEDS: Budesonide 0.5 MG/2 ML NEB NEB SCH (21:30)
[2022-06-18] MEDS: Arformoterol 15 MCG/2 ML NEB NEB SCH (21:30)
[2022-06-18] MEDS: Levalbuterol HCl 0.63 MG/3 ML NEB NEB SCH ×2 (21:30→22:08)
[2022-06-19] MEDS: HumaLOG 300 UNITS/3 ML VIAL SC PRN ×4 (00:26→20:20)
[2022-06-19] MEDS: Piperacillin/Tazobactam 3.375 GM in Sodium Chloride 0.9% 100 ML IVPB SCH ×4 (00:26→23:49)
[2022-06-19] MEDS: Levalbuterol HCl 0.63 MG/3 ML NEB NEB SCH ×6 (02:10→22:00)
[2022-06-19 03:22] LABS: Anisocytosis SLIGHT = 6-15 cells (100X) (0-5/hpf); Band 15 % (5-11); Hemoglobin 8.6 g/dL (12.0-16.0); Lymphocytes 17 % (21-51); MDiff Complete? YES; Mean Corpuscular HGB CONC 35.1 g/dL (32.0-36.0); Mean Corpuscular Hemoglobin 31.5 pg (27.0-31.0); Mean Corpuscular Volume 89.7 fl (78.0-98.0); Mean Platelet Volume 8.5 fL (7.4-10.4); Metamyelocyte 2 % (0-0); Monocytes 3 % (0-10); Neutrophil 63 % (42-75); Platelet Count 44 10x3/uL (130-400); Platelet Morphology Comment Appears Decreased; Red Blood Cell (RBC) Count 2.74 mill/uL (4.20-5.40); White Blood Cell (WBC) Count 12.7 10x3/uL (4.8-10.8)
[2022-06-19 03:31] LABS: PTT 230.8 sec (22.9-36.1)
[2022-06-19 03:32] LABS: Anion Gap 17 mmol/L (10-20); BUN (Urea Nitrogen) 36 mg/dL (7.0-18.7); Calc. Creatinine Clearance 51 mL/min (70-130); Carbon Dioxide 17 mmol/L (22-29); Chloride 102 mmol/L (98-107); Estimated GFR 24; Glucose 380 mg/dL (70-105); Phosphorus 3.7 mg/dL (2.3-4.7); Sodium 131 mmol/L (136-145)
[2022-06-19] MEDS: Budesonide 0.5 MG/2 ML NEB NEB SCH ×2 (07:37→18:55)
[2022-06-19] MEDS: Arformoterol 15 MCG/2 ML NEB NEB SCH ×2 (07:38→18:55)
[2022-06-19 07:55] LABS: Anion Gap 17 mmol/L (10-20); BUN (Urea Nitrogen) 38 mg/dL (7.0-18.7); Calc. Creatinine Clearance 51 mL/min (70-130); Carbon Dioxide 17 mmol/L (22-29); Chloride 103 mmol/L (98-107); Estimated GFR 24; Glucose 301 mg/dL (70-105); Potassium 4.7 mmol/L (3.5-5.1); Sodium 132 mmol/L (136-145)
[2022-06-19] MEDS: Sodium Bicarbonate 150 MEQ in Dextrose 5% in Water 1,000 ML IV SCH (07:59)
[2022-06-19] MEDS: Sodium Bicarbonate 150 MEQ in Sterile Water 1,000 ML IV SCH ×2 (07:59→17:24)
[2022-06-19] MEDS ORDERED: Amlodipine 5 MG TAB PO SCH (09:00)
[2022-06-19] MEDS ORDERED: Famotidine 20 MG TAB PO SCH ×2 (09:00→21:00)
[2022-06-19] MEDS: Carvedilol 6.25 MG TAB PO SCH ×3 (10:46→20:19)
[2022-06-19] MEDS: Amlodipine 5 MG TAB PO SCH ×2 (10:46→11:06)
[2022-06-19] MEDS: Loratadine 10 MG TAB PO SCH (10:46)
[2022-06-19 13:10] LABS: Legionella Urinary Ag Negative (Negative); Strep pneumo Urine Ag NEGATIVE (NEGATIVE)
[2022-06-19] MEDS: Heparin 10,000 UNITS/ 10 ML VIAL SLOW IVP SCH (13:39)
[2022-06-19] MEDS: Acetaminophen 325 MG TAB PO PRN (13:40)
[2022-06-19] MEDS: Ondansetron PF 4 MG/2 ML Vial IVP PRN (13:46)
[2022-06-19] MEDS: Heparin 25,000 units/D5W 500 ML IVPB SCH (13:47)
[2022-06-19] MEDS ORDERED: Sodium Bicarbonate Tab 325 MG TAB PO SCH (15:00)
[2022-06-19 15:35] LABS: Vancomycin, Random 23.3 ug/mL (See Comment)
[2022-06-19 16:36] LABS: Bacteria/HPF None Seen HPF (None Seen); Bilirubin Negative (Negative); Blood, Urine 1+ (Negative); Clarity Clear (Clear); Glucose, Urine (Dipstick) 100 mg/dL (Negative); Ketone, Urine Trace mg/dL (Negative); Leukocyte Negative Leu/uL (Negative); Nitrite Negative (Negative); Protein, Urine (Dipstick) 100 mg/dL (Neg-Trace); RBC/HPF 0-3 HPF (0-3); Specific Gravity, Urine 1.027 (1.002-1.036); Squamous Epithelial 0-3 HPF (0-3); Urobilinogen Normal mg/dL (Less than 2); WBC/HPF 0-3 HPF (0-3); pH, Urine 5.5 (5.0-9.0)
[2022-06-19 16:54] LABS: Creatinine, Urine 90.86 mg/dL (47-110)
[2022-06-19 17:48] LABS: Anion Gap 15 mmol/L (10-20); BUN (Urea Nitrogen) 44 mg/dL (7.0-18.7); Calc. Creatinine Clearance 46 mL/min (70-130); Calcium 7.6 mg/dL (7.8-10.44); Carbon Dioxide 24 mmol/L (22-29); Chloride 97 mmol/L (98-107); Estimated GFR 22; Glucose 390 mg/dL (70-105); Sodium 132 mmol/L (136-145)
[2022-06-19] MEDS: Gabapentin 300 MG CAP PO SCH (19:49)
[2022-06-19] MEDS: Pregabalin 25 MG CAP PO SCH (19:49)
[2022-06-19] MEDS: Atorvastatin Calcium 10 MG TAB PO SCH (19:49)
[2022-06-19] MEDS: Pantoprazole 40 MG VIAL IVP SCH (19:50)
[2022-06-19] MEDS: HumuLIN 70/30 (300 UNITS/3 ML VIAL) SC SCH (22:18)
[2022-06-20] MEDS: Levalbuterol HCl 0.63 MG/3 ML NEB NEB SCH ×6 (00:31→23:40)
[2022-06-20] MEDS ORDERED: Vancomycin HCl 750 MG in Sodium Chloride 0.9% 250 ML 250 ML IVPB SCH (03:45)
[2022-06-20] MEDS: Heparin 25,000 units/D5W 500 ML IVPB SCH (04:02)
[2022-06-20] MEDS: Acetaminophen 325 MG TAB PO PRN ×2 (06:11→20:44)
[2022-06-20] MEDS: Sodium Bicarbonate 150 MEQ in Sterile Water 1,000 ML IV SCH ×2 (06:18→17:52)
[2022-06-20] MEDS: Arformoterol 15 MCG/2 ML NEB NEB SCH ×2 (07:37→19:17)
[2022-06-20] MEDS: Budesonide 0.5 MG/2 ML NEB NEB SCH ×2 (07:39→19:18)
[2022-06-20] MEDS: Gabapentin 300 MG CAP PO SCH ×2 (08:02→20:45)
[2022-06-20] MEDS: Pregabalin 25 MG CAP PO SCH ×3 (08:02→20:45)
[2022-06-20] MEDS: Loratadine 10 MG TAB PO SCH (08:03)
[2022-06-20] MEDS: Piperacillin/Tazobactam 3.375 GM in Sodium Chloride 0.9% 100 ML IVPB SCH ×2 (08:04→15:26)
[2022-06-20] MEDS: Carvedilol 6.25 MG TAB PO SCH ×2 (08:04→20:45)
[2022-06-20] MEDS: Amlodipine 5 MG TAB PO SCH (08:05)
[2022-06-20] MEDS: HumuLIN 70/30 (300 UNITS/3 ML VIAL) SC SCH ×2 (08:16→20:45)
[2022-06-20] MEDS: Ondansetron PF 4 MG/2 ML Vial IVP PRN (08:16)
[2022-06-20] MEDS ORDERED: Sodium Chloride 0.9% 1,000 ML IV SCH (08:45)
[2022-06-20 09:22] LABS: Hemoglobin 7.2 g/dL (12.0-16.0); Mean Corpuscular HGB CONC 33.6 g/dL (32.0-36.0); Mean Corpuscular Hemoglobin 30.5 pg (27.0-31.0); Mean Corpuscular Volume 90.9 fl (78.0-98.0); Mean Platelet Volume 13.9 fL (7.4-10.4); Platelet Count 42 10x3/uL (130-400); RBC Distribution Width 15.6 % (11.5-14.5); Red Blood Cell (RBC) Count 2.36 mill/uL (4.20-5.40); White Blood Cell (WBC) Count 6.3 10x3/uL (4.8-10.8)
[2022-06-20 09:36] LABS: ALT (SGPT) 9 U/L (8-55); AST (SGOT) 18 U/L (5-34); Albumin 2.7 g/dL (3.5-5.0); Alkaline Phosphatase 38 U/L (40-110); Anion Gap 14 mmol/L (10-20); BUN (Urea Nitrogen) 40 mg/dL (7.0-18.7); Bilirubin, Total 0.4 mg/dL (0.2-1.2); Calc. Creatinine Clearance 45 mL/min (70-130); Calcium 7.5 mg/dL (7.8-10.44); Carbon Dioxide 27 mmol/L (22-29); Chloride 96 mmol/L (98-107); Estimated GFR 20; Globulin 2.4 g/dL (2.4-3.5); Glucose 223 mg/dL (70-105); Phosphorus 3.5 mg/dL (2.3-4.7); Protein, Total 5.1 g/dL (6.0-8.3); Sodium 133 mmol/L (136-145)
[2022-06-20] MEDS ORDERED: Magnesium 2 GM/50 ML(in water) 2 GM in Premix Bag 1 BAG IVPB SCH (10:15)
[2022-06-20 11:22] LABS: Band 5 % (5-11); Lymphocytes 12 % (21-51); MDiff Complete? YES; Monocytes 6 % (0-10); Neutrophil 76 % (42-75); Platelet Morphology Comment Appears Decreased; Polychromasia SLIGHT = 2-3 cells (100X) (0-2/hpf)
[2022-06-20 20:26] LABS: Hemoglobin 7.4 g/dL (12.0-16.0); Platelet Count 42 10x3/uL (130-400)
[2022-06-20] MEDS: Atorvastatin Calcium 10 MG TAB PO SCH (20:45)
[2022-06-20] MEDS: Pantoprazole 40 MG VIAL IVP SCH (20:46)
[2022-06-20] MEDS ORDERED: Famotidine 20 MG TAB PO SCH (21:00)
[2022-06-20] MEDS: Acyclovir 400 mg Tablet PO SCH (23:04)
[2022-06-21] MEDS: Piperacillin/Tazobactam 3.375 GM in Sodium Chloride 0.9% 100 ML IVPB SCH ×4 (01:46→22:30)
[2022-06-21] MEDS: Levalbuterol HCl 0.63 MG/3 ML NEB NEB SCH ×6 (02:17→21:57)
[2022-06-21 04:54] LABS: #Lymphocytes 0.9 thou/uL (1.20-3.40); #Monocytes 0.1 thou/uL (0.11-0.59); #Neutrophils 1.8 thou/uL (1.40-6.50); %Basophils 0.3 % (0.0-1.0); %Eosinophils 0.4 % (0.0-10.0); %Lymphocytes 30.2 % (21.0-51.0); %Monocytes 3.9 % (0.0-10.0); %Neutrophils 65.2 % (42.0-75.0); Hemoglobin 11.4 g/dL (12.0-16.0); Mean Corpuscular HGB CONC 32.3 g/dL (32.0-36.0); Mean Corpuscular Hemoglobin 30.1 pg (27.0-31.0); Mean Corpuscular Volume 93.2 fl (78.0-98.0); Mean Platelet Volume 14.4 fL (7.4-10.4); Platelet Count 30 10x3/uL (130-400); RBC Distribution Width 15.6 % (11.5-14.5); Red Blood Cell (RBC) Count 3.78 mill/uL (4.20-5.40); White Blood Cell (WBC) Count 2.8 10x3/uL (4.8-10.8)
[2022-06-21 05:11] LABS: Vancomycin, Random 15.5 ug/mL (See Comment)
[2022-06-21 05:15] LABS: ALT (SGPT) 11 U/L (8-55); AST (SGOT) 12 U/L (5-34); Albumin 2.9 g/dL (3.5-5.0); Alkaline Phosphatase 51 U/L (40-110); Anion Gap 14 mmol/L (10-20); BUN (Urea Nitrogen) 37 mg/dL (7.0-18.7); Bilirubin, Total 0.4 mg/dL (0.2-1.2); Calc. Creatinine Clearance 44 mL/min (70-130); Calcium 8.2 mg/dL (7.8-10.44); Carbon Dioxide 31 mmol/L (22-29); Chloride 97 mmol/L (98-107); Estimated GFR 20; Globulin 2.3 g/dL (2.4-3.5); Glucose 198 mg/dL (70-105); Protein, Total 5.2 g/dL (6.0-8.3); Sodium 138 mmol/L (136-145)
[2022-06-21] MEDS: Sodium Chloride 0.9% 1,000 ML IV SCH ×4 (06:19→22:30)
[2022-06-21] MEDS: Arformoterol 15 MCG/2 ML NEB NEB SCH ×2 (07:38→18:40)
[2022-06-21] MEDS: Budesonide 0.5 MG/2 ML NEB NEB SCH ×2 (07:39→18:40)
[2022-06-21] MEDS ORDERED: Vancomycin HCl 750 MG in Sodium Chloride 0.9% 250 ML 250 ML IVPB SCH (08:00)
[2022-06-21] MEDS: Loratadine 10 MG TAB PO SCH (08:47)
[2022-06-21] MEDS: Carvedilol 6.25 MG TAB PO SCH ×2 (08:47→21:03)
[2022-06-21] MEDS: Ergocalciferol 1.25 MG(50,000 UNITS) CAP PO SCH (08:47)
[2022-06-21] MEDS: Gabapentin 300 MG CAP PO SCH ×2 (08:47→21:03)
[2022-06-21] MEDS: Acyclovir 400 mg Tablet PO SCH ×3 (08:48→21:05)
[2022-06-21] MEDS: Pregabalin 25 MG CAP PO SCH ×2 (08:48→21:02)
[2022-06-21] MEDS: HumuLIN 70/30 (300 UNITS/3 ML VIAL) SC SCH ×2 (08:49→21:06)
[2022-06-21] MEDS: Aluminum & Magnesium Hydroxide 60 ML, diphenhydrAMINE 150 MG, Lidocaine 2% Viscous Solu... SSW PRN ×3 (10:37→21:07)
[2022-06-21] MEDS: methylPREDNISolone Sod Succ 40 MG VIAL IVP SCH ×2 (10:40→18:15)
[2022-06-21 12:34] LABS: Hemoglobin 6.6 g/dL (12.0-16.0)
[2022-06-21] MEDS: HumaLOG 300 UNITS/3 ML VIAL SC PRN ×3 (14:31→21:13)
[2022-06-21 14:49] LABS: Hemoglobin 7.5 g/dL (12.0-16.0)
[2022-06-21] MEDS: Atorvastatin Calcium 10 MG TAB PO SCH (21:05)
[2022-06-21] MEDS: Pantoprazole 40 MG VIAL IVP SCH (21:07)
[2022-06-22] MEDS: methylPREDNISolone Sod Succ 40 MG VIAL IVP SCH ×3 (02:08→17:50)
[2022-06-22] MEDS: Levalbuterol HCl 0.63 MG/3 ML NEB NEB SCH ×6 (02:51→22:37)
[2022-06-22] MEDS: HumaLOG 300 UNITS/3 ML VIAL SC PRN ×4 (05:13→21:05)
[2022-06-22 06:13] LABS: Hemoglobin 7.9 g/dL (12.0-16.0); Mean Corpuscular HGB CONC 33.7 g/dL (32.0-36.0); Mean Corpuscular Hemoglobin 31.2 pg (27.0-31.0); Mean Corpuscular Volume 92.4 fl (78.0-98.0); Mean Platelet Volume 11.1 fL (7.4-10.4); Platelet Count 56 10x3/uL (130-400); Red Blood Cell (RBC) Count 2.52 mill/uL (4.20-5.40); White Blood Cell (WBC) Count 2.7 10x3/uL (4.8-10.8)
[2022-06-22 06:35] LABS: ALT (SGPT) 14 U/L (8-55); AST (SGOT) 18 U/L (5-34); Albumin 3.4 g/dL (3.5-5.0); Alkaline Phosphatase 75 U/L (40-110); Anion Gap 14 mmol/L (10-20); BUN (Urea Nitrogen) 36 mg/dL (7.0-18.7); Bilirubin, Total 0.4 mg/dL (0.2-1.2); Calc. Creatinine Clearance 51 mL/min (70-130); Calcium 8.9 mg/dL (7.8-10.44); Carbon Dioxide 24 mmol/L (22-29); Chloride 104 mmol/L (98-107); Estimated GFR 24; Globulin 2.7 g/dL (2.4-3.5); Glucose 354 mg/dL (70-105); Potassium 6.4 mmol/L (3.5-5.1); Protein, Total 6.1 g/dL (6.0-8.3); Sodium 136 mmol/L (136-145)
[2022-06-22] MEDS ORDERED: Insulin Regular 300 UNITS/3 ML VIAL SC SCH ×2 (06:45→07:00)
[2022-06-22] MEDS ORDERED: LOKELMA 10 GM PACKET PO SCH (07:00)
[2022-06-22 07:06] LABS: Band 2 % (5-11); Lymphocytes 12 % (21-51); MDiff Complete? YES; Monocytes 5 % (0-10); Neutrophil 81 % (42-75); Nucleated RBC 1 % (0); Platelet Morphology Comment Appears Decreased
[2022-06-22] MEDS: Budesonide 0.5 MG/2 ML NEB NEB SCH ×2 (07:18→19:01)
[2022-06-22] MEDS: Arformoterol 15 MCG/2 ML NEB NEB SCH ×2 (07:18→19:01)
[2022-06-22] MEDS: Sodium Chloride 0.9% 1,000 ML IV SCH ×2 (07:50→17:52)
[2022-06-22] MEDS: Piperacillin/Tazobactam 3.375 GM in Sodium Chloride 0.9% 100 ML IVPB SCH ×2 (08:38→15:28)
[2022-06-22] MEDS: Gabapentin 300 MG CAP PO SCH ×2 (08:39→20:48)
[2022-06-22] MEDS: Pregabalin 25 MG CAP PO SCH ×2 (08:39→20:48)
[2022-06-22] MEDS: Loratadine 10 MG TAB PO SCH (08:39)
[2022-06-22] MEDS: Carvedilol 6.25 MG TAB PO SCH ×2 (08:39→20:49)
[2022-06-22 08:57] LABS: Potassium 5.6 mmol/L (3.5-5.1)
[2022-06-22] MEDS: Acyclovir 400 mg Tablet PO SCH ×2 (09:05→15:29)
[2022-06-22] MEDS: HumuLIN 70/30 (300 UNITS/3 ML VIAL) SC SCH ×2 (09:06→21:03)
[2022-06-22] MEDS: Aluminum & Magnesium Hydroxide 60 ML, diphenhydrAMINE 150 MG, Lidocaine 2% Viscous Solu... SSW PRN (09:10)
[2022-06-22] MEDS ORDERED: Vancomycin 1.5 GRAM/300 ML BAG 1.5 GM in Premix Bag 1 BAG IVPB SCH (11:00)
[2022-06-22] MEDS: Ondansetron PF 4 MG/2 ML Vial IVP PRN (11:21)
[2022-06-22 15:16] LABS: Actual Bicarbonate (HCO3v) 26.5 mEq/L (22-28); Base Excess 0.6 mEq/L (-2.0 to +3.0); Calcium, Ionized (venous) 1.13 mmol/L (1.16-1.32); Chloride (VBG) 106 mmol/L (98-106); Hematocrit-VBG 24 % (36.0-47.0); Sodium 134.9 mmol/L (133-146); pH (venous) 7.346 (7.32-7.43)
[2022-06-22 15:21] LABS: Potassium (VBG) 6.62 mmol/L (3.70-5.30)
[2022-06-22] MEDS ORDERED: Insulin Regular 300 UNITS/3 ML VIAL IVP SCH (16:00)
[2022-06-22] MEDS ORDERED: Dextrose 50% Abboject 50 ML SYRINGE SLOW IVP SCH (16:00)
[2022-06-22] MEDS ORDERED: Calcium Gluc 4.6 MEQ/10 ML (100 MG/ML) SLOW IVP SCH (16:00)
[2022-06-22 16:53] LABS: Anion Gap 14 mmol/L (10-20); BUN (Urea Nitrogen) 38 mg/dL (7.0-18.7); Calc. Creatinine Clearance 55 mL/min (70-130); Calcium 8.4 mg/dL (7.8-10.44); Carbon Dioxide 22 mmol/L (22-29); Chloride 107 mmol/L (98-107); Estimated GFR 26; Potassium 5.7 mmol/L (3.5-5.1); Sodium 137 mmol/L (136-145)
[2022-06-22 17:04] LABS: Glucose 470 mg/dL (70-105)
[2022-06-22 20:09] LABS: Hemoglobin 8.1 g/dL (12.0-16.0); Platelet Count 51 10x3/uL (130-400)
[2022-06-22 20:30] LABS: Anion Gap 15 mmol/L (10-20); BUN (Urea Nitrogen) 38 mg/dL (7.0-18.7); Calc. Creatinine Clearance 58 mL/min (70-130); Carbon Dioxide 20 mmol/L (22-29); Chloride 108 mmol/L (98-107); Estimated GFR 27; Glucose 252 mg/dL (70-105); Sodium 137 mmol/L (136-145)
[2022-06-22] MEDS: valACYclovir 500 MG TAB PO SCH (20:47)
[2022-06-22] MEDS: Atorvastatin Calcium 10 MG TAB PO SCH (20:48)
[2022-06-22 20:55] LABS: Potassium 6.1 mmol/L (3.5-5.1)
[2022-06-22] MEDS: Pantoprazole 40 MG VIAL IVP SCH (20:55)
[2022-06-22] MEDS: Sodium Bicarbonate Tab 325 MG TAB PO SCH (22:07)
[2022-06-22 22:20] LABS: HIV (1/2) Antibody/Antigen Non-Reactive (NonReactive); HIV 1/2 INDEX 0.22 S/CO (<1.00)
[2022-06-23] MEDS ORDERED: Insulin Regular 300 UNITS/3 ML VIAL SC SCH (00:15)
[2022-06-23] MEDS: Piperacillin/Tazobactam 3.375 GM in Sodium Chloride 0.9% 100 ML IVPB SCH ×3 (00:25→17:49)
[2022-06-23] MEDS: Sodium Chloride 0.9% 1,000 ML IV SCH ×2 (00:48→07:00)
[2022-06-23] MEDS: methylPREDNISolone Sod Succ 40 MG VIAL IVP SCH ×3 (02:33→17:49)
[2022-06-23] MEDS: Levalbuterol HCl 0.63 MG/3 ML NEB NEB SCH ×6 (02:45→21:35)
[2022-06-23] MEDS: Budesonide 0.5 MG/2 ML NEB NEB SCH ×2 (06:36→21:35)
[2022-06-23] MEDS: Arformoterol 15 MCG/2 ML NEB NEB SCH ×2 (06:36→21:35)
[2022-06-23 06:57] LABS: RBC Distribution Width 15.2 % (11.5-14.5); White Blood Cell (WBC) Count 2.6 10x3/uL (4.8-10.8)
[2022-06-23] MEDS: HumaLOG 300 UNITS/3 ML VIAL SC PRN ×4 (07:01→20:19)
[2022-06-23] MEDS ORDERED: LOKELMA 10 GM PACKET PO SCH (07:15)
[2022-06-23 07:17] LABS: ALT (SGPT) 13 U/L (8-55); AST (SGOT) 18 U/L (5-34); Albumin 3.3 g/dL (3.5-5.0); Alkaline Phosphatase 61 U/L (40-110); Anion Gap 14 mmol/L (10-20); BUN (Urea Nitrogen) 39 mg/dL (7.0-18.7); Bilirubin, Total 0.3 mg/dL (0.2-1.2); Calc. Creatinine Clearance 58 mL/min (70-130); Calcium 8.8 mg/dL (7.8-10.44); Carbon Dioxide 20 mmol/L (22-29); Chloride 108 mmol/L (98-107); Estimated GFR 27; Globulin 2.3 g/dL (2.4-3.5); Glucose 252 mg/dL (70-105); Magnesium 1.7 mg/dL (1.6-2.6); Phosphorus 3.2 mg/dL (2.3-4.7); Potassium 5.8 mmol/L (3.5-5.1); Protein, Total 5.6 g/dL (6.0-8.3); Sodium 136 mmol/L (136-145)
[2022-06-23 08:08] LABS: Anisocytosis SLIGHT = 6-15 cells (100X) (0-5/hpf); Band 7 % (5-11); Hypochromia SLIGHT = 6-15 cells (100X) (0-5/hpf); Lymphocytes 12 % (21-51); MDiff Complete? YES; Monocytes 10 % (0-10); Neutrophil 69 % (42-75); Nucleated RBC 1 % (0); Platelet Morphology Comment Appears Decreased; Polychromasia MODERATE = 3-4 cells (100X) (0-2/hpf); Reactive Lymphocytes 2 % (0-10); Tear Drops SLIGHT = 2-5 cells (100X) (0-1/hpf)
[2022-06-23 08:30] LABS: Hemoglobin 9.1 g/dL (12.0-16.0); Mean Corpuscular Hemoglobin 31.6 pg (27.0-31.0); Mean Corpuscular Volume 91.1 fl (78.0-98.0)
[2022-06-23 08:31] LABS: Mean Corpuscular HGB CONC 34.7 g/dL (32.0-36.0); Platelet Count 68 10x3/uL (130-400)
[2022-06-23] MEDS: Gabapentin 300 MG CAP PO SCH ×2 (08:41→20:40)
[2022-06-23] MEDS: Carvedilol 6.25 MG TAB PO SCH ×2 (08:42→20:38)
[2022-06-23] MEDS: Loratadine 10 MG TAB PO SCH (08:42)
[2022-06-23] MEDS: Pregabalin 25 MG CAP PO SCH ×2 (08:42→20:40)
[2022-06-23] MEDS: Sodium Bicarbonate Tab 325 MG TAB PO SCH ×3 (08:50→20:41)
[2022-06-23] MEDS ORDERED: Sodium Bicarbonate 150 MEQ in Dextrose 5% in Water 1,000 ML IV SCH (09:00)
[2022-06-23] MEDS: HumuLIN 70/30 (300 UNITS/3 ML VIAL) SC SCH ×2 (10:04→20:19)
[2022-06-23] MEDS: valACYclovir 500 MG TAB PO SCH ×2 (10:06→20:38)
[2022-06-23] MEDS: Aluminum & Magnesium Hydroxide 60 ML, diphenhydrAMINE 150 MG, Lidocaine 2% Viscous Solu... SSW PRN ×2 (10:51→18:56)
[2022-06-23] MEDS: Sodium Bicarbonate 150 MEQ in Sterile Water 1,000 ML IV SCH ×2 (10:52→20:36)
[2022-06-23] MEDS ORDERED: Amlodipine 5 MG TAB PO SCH (15:45)
[2022-06-23 16:49] LABS: Anion Gap 15 mmol/L (10-20); BUN (Urea Nitrogen) 40 mg/dL (7.0-18.7); Calc. Creatinine Clearance 63 mL/min (70-130); Calcium 9.2 mg/dL (7.8-10.44); Carbon Dioxide 22 mmol/L (22-29); Chloride 106 mmol/L (98-107); Estimated GFR 30; Glucose 380 mg/dL (70-105); Potassium 5.4 mmol/L (3.5-5.1); Sodium 138 mmol/L (136-145)
[2022-06-23] MEDS: Atorvastatin Calcium 10 MG TAB PO SCH (20:41)
[2022-06-23] MEDS: Pantoprazole 40 MG VIAL IVP SCH (20:43)
[2022-06-24] MEDS: methylPREDNISolone Sod Succ 40 MG VIAL IVP SCH ×3 (01:59→18:23)
[2022-06-24] MEDS: Levalbuterol HCl 0.63 MG/3 ML NEB NEB SCH ×6 (02:19→23:43)
[2022-06-24] MEDS: HumaLOG 300 UNITS/3 ML VIAL SC PRN ×6 (04:59→20:11)
[2022-06-24] MEDS: Sodium Bicarbonate 150 MEQ in Sterile Water 1,000 ML IV SCH ×2 (05:00→16:35)
[2022-06-24] MEDS: Arformoterol 15 MCG/2 ML NEB NEB SCH ×2 (06:36→18:53)
[2022-06-24] MEDS: Budesonide 0.5 MG/2 ML NEB NEB SCH ×2 (06:37→18:53)
[2022-06-24] MEDS: Carvedilol 6.25 MG TAB PO SCH ×2 (09:21→20:13)
[2022-06-24] MEDS: Amlodipine 5 MG TAB PO SCH (09:21)
[2022-06-24] MEDS: valACYclovir 500 MG TAB PO SCH ×2 (09:21→20:30)
[2022-06-24] MEDS: Loratadine 10 MG TAB PO SCH (09:21)
[2022-06-24] MEDS: Sodium Bicarbonate Tab 325 MG TAB PO SCH ×3 (09:21→20:12)
[2022-06-24] MEDS: Piperacillin/Tazobactam 3.375 GM in Sodium Chloride 0.9% 100 ML IVPB SCH ×4 (09:22→23:09)
[2022-06-24] MEDS: Gabapentin 300 MG CAP PO SCH ×2 (09:22→20:13)
[2022-06-24] MEDS: HumuLIN 70/30 (300 UNITS/3 ML VIAL) SC SCH ×2 (09:23→20:24)
[2022-06-24] MEDS: Pregabalin 25 MG CAP PO SCH ×2 (09:24→20:13)
[2022-06-24] MEDS: Aluminum & Magnesium Hydroxide 60 ML, diphenhydrAMINE 150 MG, Lidocaine 2% Viscous Solu... SSW PRN (09:51)
[2022-06-24 11:41] LABS: Albumin 3.4 g/dL (3.5-5.0); Anion Gap 13 mmol/L (10-20); BUN (Urea Nitrogen) 44 mg/dL (7.0-18.7); BUN/Creatinine Ratio 20.85; Calc. Creatinine Clearance 64 mL/min (70-130); Carbon Dioxide 28 mmol/L (22-29); Chloride 101 mmol/L (98-107); Estimated GFR 31; Phosphorus 3.1 mg/dL (2.3-4.7); Potassium 5.1 mmol/L (3.5-5.1); Sodium 137 mmol/L (136-145)
[2022-06-24 11:48] LABS: Glucose 448 mg/dL (70-105)
[2022-06-24] MEDS ORDERED: Amlodipine 5 MG TAB PO SCH (13:45)
[2022-06-24] MEDS: Ondansetron PF 4 MG/2 ML Vial IVP PRN (16:35)
[2022-06-24 18:02] LABS: Hemoglobin 9.9 g/dL (12.0-16.0); Platelet Count 98 10x3/uL (130-400)
[2022-06-24] MEDS: Atorvastatin Calcium 10 MG TAB PO SCH (20:13)
[2022-06-24] MEDS: Pantoprazole 40 MG VIAL IVP SCH (20:14)
[2022-06-25] MEDS: HumaLOG 300 UNITS/3 ML VIAL SC PRN ×6 (00:54→20:46)
[2022-06-25] MEDS: Levalbuterol HCl 0.63 MG/3 ML NEB NEB SCH ×6 (01:03→23:07)
[2022-06-25] MEDS: methylPREDNISolone Sod Succ 40 MG VIAL IVP SCH ×3 (03:49→17:37)
[2022-06-25 07:31] LABS: Mean Corpuscular HGB CONC 34.6 g/dL (32.0-36.0); Mean Corpuscular Hemoglobin 30.5 pg (27.0-31.0); Mean Corpuscular Volume 88.2 fl (78.0-98.0); Mean Platelet Volume 9.9 fL (7.4-10.4); Platelet Count 97 10x3/uL (130-400); RBC Distribution Width 15.4 % (11.5-14.5); Red Blood Cell (RBC) Count 2.94 mill/uL (4.20-5.40); White Blood Cell (WBC) Count 3.1 10x3/uL (4.8-10.8)
[2022-06-25 07:48] LABS: ALT (SGPT) 12 U/L (8-55); AST (SGOT) 9 U/L (5-34); Albumin 3.2 g/dL (3.5-5.0); Alkaline Phosphatase 57 U/L (40-110); Anion Gap 15 mmol/L (10-20); BUN (Urea Nitrogen) 48 mg/dL (7.0-18.7); BUN/Creatinine Ratio 23.53; Bilirubin, Total 0.3 mg/dL (0.2-1.2); Calc. Creatinine Clearance 67 mL/min (70-130); Calcium 9.1 mg/dL (7.8-10.44); Carbon Dioxide 29 mmol/L (22-29); Chloride 99 mmol/L (98-107); Estimated GFR 32; Globulin 1.8 g/dL (2.4-3.5); Glucose 213 mg/dL (70-105); Magnesium 1.5 mg/dL (1.6-2.6); Phosphorus 2.6 mg/dL (2.3-4.7); Potassium 4.9 mmol/L (3.5-5.1); Sodium 138 mmol/L (136-145)
[2022-06-25] MEDS: Sodium Bicarbonate 150 MEQ in Sterile Water 1,000 ML IV SCH ×2 (07:49→15:15)
[2022-06-25 08:54] LABS: Anisocytosis SLIGHT = 6-15 cells (100X) (0-5/hpf); Band 2 % (5-11); Lymphocytes 20 % (21-51); MDiff Complete? YES; Monocytes 14 % (0-10); Myelocyte 2 % (0-0); Neutrophil 62 % (42-75); Nucleated RBC 1 % (0); Platelet Morphology Comment Appears Decreased
[2022-06-25] MEDS: Sodium Bicarbonate Tab 325 MG TAB PO SCH ×3 (09:07→20:45)
[2022-06-25] MEDS: Pregabalin 25 MG CAP PO SCH ×2 (09:07→20:44)
[2022-06-25] MEDS: Loratadine 10 MG TAB PO SCH (09:07)
[2022-06-25] MEDS: Carvedilol 6.25 MG TAB PO SCH ×2 (09:08→20:46)
[2022-06-25] MEDS: Amlodipine 10 MG TAB PO SCH (09:08)
[2022-06-25] MEDS: Gabapentin 300 MG CAP PO SCH ×2 (09:09→20:45)
[2022-06-25] MEDS: valACYclovir 500 MG TAB PO SCH ×2 (09:09→20:45)
[2022-06-25] MEDS: Piperacillin/Tazobactam 3.375 GM in Sodium Chloride 0.9% 100 ML IVPB SCH ×3 (09:10→23:44)
[2022-06-25] MEDS: HumuLIN 70/30 (300 UNITS/3 ML VIAL) SC SCH ×2 (09:10→20:46)
[2022-06-25] MEDS ORDERED: Sodium Bicarbonate 50 MEQ in Sodium Chloride 0.45% 1,000 ML IV SCH (09:15)
[2022-06-25] MEDS: Ondansetron PF 4 MG/2 ML Vial IVP PRN (10:25)
[2022-06-25] MEDS: Budesonide 0.5 MG/2 ML NEB NEB SCH ×2 (11:08→18:44)
[2022-06-25] MEDS: Arformoterol 15 MCG/2 ML NEB NEB SCH ×2 (11:08→18:44)
[2022-06-25] MEDS: Aluminum & Magnesium Hydroxide 60 ML, diphenhydrAMINE 150 MG, Lidocaine 2% Viscous Solu... SSW PRN ×2 (11:31→17:39)
[2022-06-25 13:37] LABS: %CD4 (Helper/Inducer) 39.9 % (30.8-58.5); Absolute CD4 80 /uL (359-1519); Lymphocytes/Gated Cell Count 0.2 x10E3/uL (0.7-3.1); Total Lymphocyte 10 % (Not Estab.); WBC Total Count 2.4 x10E3/uL (3.4-10.8); nRBC 1 % (0 - 0)
[2022-06-25] MEDS: Mupirocin 2% Ointment 22 GM Tube TOP SCH ×2 (15:22→21:21)
[2022-06-25] MEDS: Pantoprazole 40 MG VIAL IVP SCH (20:45)
[2022-06-25] MEDS: Atorvastatin Calcium 10 MG TAB PO SCH (20:46)
[2022-06-26 00:17] LABS: Glucose 622 mg/dL (70-105)
[2022-06-26] MEDS ORDERED: HumaLOG 300 UNITS/3 ML VIAL SC SCH (00:30)
[2022-06-26] MEDS: Levalbuterol HCl 0.63 MG/3 ML NEB NEB SCH ×6 (03:17→23:19)
[2022-06-26] MEDS: methylPREDNISolone Sod Succ 40 MG VIAL IVP SCH ×3 (03:19→21:40)
[2022-06-26] MEDS: HumaLOG 300 UNITS/3 ML VIAL SC PRN ×4 (03:31→21:44)
[2022-06-26] MEDS: Piperacillin/Tazobactam 3.375 GM in Sodium Chloride 0.9% 100 ML IVPB SCH ×2 (08:22→16:45)
[2022-06-26] MEDS: Gabapentin 300 MG CAP PO SCH ×2 (08:25→21:43)
[2022-06-26] MEDS: Sodium Bicarbonate Tab 325 MG TAB PO SCH ×3 (08:25→21:42)
[2022-06-26] MEDS: Loratadine 10 MG TAB PO SCH (08:26)
[2022-06-26] MEDS: Carvedilol 6.25 MG TAB PO SCH ×2 (08:26→21:43)
[2022-06-26] MEDS: Amlodipine 10 MG TAB PO SCH (08:26)
[2022-06-26] MEDS: Pregabalin 25 MG CAP PO SCH ×2 (08:27→21:42)
[2022-06-26] MEDS: valACYclovir 500 MG TAB PO SCH ×2 (08:27→21:43)
[2022-06-26] MEDS: HumuLIN 70/30 (300 UNITS/3 ML VIAL) SC SCH ×2 (08:28→21:44)
[2022-06-26] MEDS: Mupirocin 2% Ointment 22 GM Tube TOP SCH ×3 (08:31→21:45)
[2022-06-26] MEDS ORDERED: Insulin Glargine 30 UNITS/0.3 ML VIAL SC SCH ×2 (09:00→21:00)
[2022-06-26 09:05] LABS: Mean Corpuscular HGB CONC 35.5 g/dL (32.0-36.0); Mean Corpuscular Hemoglobin 31.1 pg (27.0-31.0); Mean Corpuscular Volume 87.5 fl (78.0-98.0); Platelet Count 105 10x3/uL (130-400); RBC Distribution Width 15.7 % (11.5-14.5); White Blood Cell (WBC) Count 5.4 10x3/uL (4.8-10.8)
[2022-06-26 09:17] LABS: Anion Gap 14 mmol/L (10-20); BUN (Urea Nitrogen) 58 mg/dL (7.0-18.7); Calc. Creatinine Clearance 63 mL/min (70-130); Calcium 9.2 mg/dL (7.8-10.44); Carbon Dioxide 28 mmol/L (22-29); Chloride 102 mmol/L (98-107); Estimated GFR 30; Glucose 109 mg/dL (70-105); Potassium 4.5 mmol/L (3.5-5.1); Sodium 139 mmol/L (136-145)
[2022-06-26 10:20] LABS: Band 7 % (5-11); Lymphocytes 30 % (21-51); MDiff Complete? YES; Metamyelocyte 2 % (0-0); Monocytes 9 % (0-10); Myelocyte 1 % (0-0); Neutrophil 51 % (42-75); Nucleated RBC 2 % (0); Platelet Morphology Comment Appears Decreased; Polychromasia SLIGHT = 2-3 cells (100X) (0-2/hpf)
[2022-06-26] MEDS: Arformoterol 15 MCG/2 ML NEB NEB SCH ×2 (10:28→18:49)
[2022-06-26] MEDS: Budesonide 0.5 MG/2 ML NEB NEB SCH ×2 (10:30→18:50)
[2022-06-26] MEDS: Aluminum & Magnesium Hydroxide 60 ML, diphenhydrAMINE 150 MG, Lidocaine 2% Viscous Solu... SSW PRN (12:06)
[2022-06-26] MEDS: Acetaminophen 325 MG TAB PO PRN (14:01)
[2022-06-26 17:58] LABS: Hemoglobin 9.7 g/dL (12.0-16.0); Platelet Count 105 10x3/uL (130-400)
[2022-06-26] MEDS: Pantoprazole 40 MG VIAL IVP SCH (21:41)
[2022-06-26] MEDS: Atorvastatin Calcium 10 MG TAB PO SCH (21:42)
[2022-06-27] MEDS: Piperacillin/Tazobactam 3.375 GM in Sodium Chloride 0.9% 100 ML IVPB SCH ×3 (00:14→17:16)
[2022-06-27] MEDS: Acetaminophen 325 MG TAB PO PRN ×2 (00:14→23:20)
[2022-06-27] MEDS: HumaLOG 300 UNITS/3 ML VIAL SC PRN ×4 (01:03→21:02)
[2022-06-27] MEDS: Ondansetron PF 4 MG/2 ML Vial IVP PRN ×2 (01:03→08:56)
[2022-06-27] MEDS: Levalbuterol HCl 0.63 MG/3 ML NEB NEB SCH ×6 (03:59→23:04)
[2022-06-27] MEDS: Arformoterol 15 MCG/2 ML NEB NEB SCH ×2 (06:48→18:33)
[2022-06-27] MEDS: Budesonide 0.5 MG/2 ML NEB NEB SCH ×2 (06:49→18:33)
[2022-06-27] MEDS: valACYclovir 500 MG TAB PO SCH ×2 (08:36→20:58)
[2022-06-27] MEDS: Loratadine 10 MG TAB PO SCH (08:36)
[2022-06-27] MEDS: Sodium Bicarbonate Tab 325 MG TAB PO SCH ×3 (08:36→20:54)
[2022-06-27] MEDS: Carvedilol 6.25 MG TAB PO SCH ×2 (08:37→20:55)
[2022-06-27] MEDS: Amlodipine 10 MG TAB PO SCH (08:37)
[2022-06-27] MEDS: Gabapentin 300 MG CAP PO SCH ×2 (08:37→20:56)
[2022-06-27] MEDS: Pregabalin 25 MG CAP PO SCH ×2 (08:37→20:57)
[2022-06-27] MEDS: methylPREDNISolone Sod Succ 40 MG VIAL IVP SCH ×2 (08:38→20:59)
[2022-06-27] MEDS: HumuLIN 70/30 (300 UNITS/3 ML VIAL) SC SCH ×2 (08:40→20:59)
[2022-06-27] MEDS: Mupirocin 2% Ointment 22 GM Tube TOP SCH ×3 (08:40→20:58)
[2022-06-27 09:11] LABS: Anion Gap 15 mmol/L (10-20); BUN (Urea Nitrogen) 64 mg/dL (7.0-18.7); Calc. Creatinine Clearance 61 mL/min (70-130); Calcium 8.9 mg/dL (7.8-10.44); Carbon Dioxide 23 mmol/L (22-29); Chloride 103 mmol/L (98-107); Estimated GFR 29; Glucose 128 mg/dL (70-105); Potassium 4.7 mmol/L (3.5-5.1); Sodium 136 mmol/L (136-145)
[2022-06-27] MEDS ORDERED: Sodium Bicarbonate 50 MEQ in Sodium Chloride 0.45% 1,000 ML IV SCH (09:33)
[2022-06-27 09:34] LABS: Hemoglobin 9.9 g/dL (12.0-16.0); Mean Corpuscular HGB CONC 34.7 g/dL (32.0-36.0); Mean Corpuscular Hemoglobin 30.7 pg (27.0-31.0); Mean Corpuscular Volume 88.7 fl (78.0-98.0); Mean Platelet Volume 9.9 fL (7.4-10.4); Platelet Count 116 10x3/uL (130-400); RBC Distribution Width 16.2 % (11.5-14.5); Red Blood Cell (RBC) Count 3.22 mill/uL (4.20-5.40); White Blood Cell (WBC) Count 5.4 10x3/uL (4.8-10.8)
[2022-06-27] MEDS ORDERED: Mag-Al Plus 1200 MG/1200 MG/120 MG/30 ML UDCUP PO PRN (09:38)
[2022-06-27] MEDS ORDERED: Fluconazole 100 MG TAB PO SCH (09:45)
[2022-06-27] MEDS ORDERED: Loperamide HCl 2 MG CAP PO SCH (09:45)
[2022-06-27 11:29] LABS: Band 10 % (5-11); Lymphocytes 17 % (21-51); MDiff Complete? YES; Metamyelocyte 1 % (0-0); Monocytes 8 % (0-10); Neutrophil 63 % (42-75); Platelet Morphology Comment Appears Decreased; Polychromasia SLIGHT = 2-3 cells (100X) (0-2/hpf); Reactive Lymphocytes 1 % (0-10)
[2022-06-27] MEDS: Aluminum & Magnesium Hydroxide 60 ML, diphenhydrAMINE 150 MG, Lidocaine 2% Viscous Solu... SSW PRN (12:35)
[2022-06-27] MEDS: Loperamide HCl 2 MG CAP PO PRN (17:20)
[2022-06-27] MEDS: Atorvastatin Calcium 10 MG TAB PO SCH (20:55)
[2022-06-27] MEDS: Pantoprazole 40 MG VIAL IVP SCH (21:01)
[2022-06-28] MEDS: Piperacillin/Tazobactam 3.375 GM in Sodium Chloride 0.9% 100 ML IVPB SCH ×4 (00:16→23:39)
[2022-06-28] MEDS: Loperamide HCl 2 MG CAP PO PRN ×2 (00:21→20:07)
[2022-06-28] MEDS: Levalbuterol HCl 0.63 MG/3 ML NEB NEB SCH ×6 (03:13→23:55)
[2022-06-28] MEDS: HumaLOG 300 UNITS/3 ML VIAL SC PRN ×2 (06:36→13:54)
[2022-06-28] MEDS: Arformoterol 15 MCG/2 ML NEB NEB SCH ×2 (06:55→18:36)
[2022-06-28] MEDS: Budesonide 0.5 MG/2 ML NEB NEB SCH ×2 (06:55→18:35)
[2022-06-28 07:40] LABS: Hemoglobin 9.6 g/dL (12.0-16.0); Mean Corpuscular HGB CONC 34.8 g/dL (32.0-36.0); Mean Corpuscular Hemoglobin 30.8 pg (27.0-31.0); Mean Corpuscular Volume 88.5 fl (78.0-98.0); Mean Platelet Volume 9.3 fL (7.4-10.4); Platelet Count 103 10x3/uL (130-400); Red Blood Cell (RBC) Count 3.11 mill/uL (4.20-5.40); White Blood Cell (WBC) Count 5.4 10x3/uL (4.8-10.8)
[2022-06-28 08:02] LABS: Anion Gap 13 mmol/L (10-20); BUN (Urea Nitrogen) 72 mg/dL (7.0-18.7); Calc. Creatinine Clearance 60 mL/min (70-130); Calcium 9.3 mg/dL (7.8-10.44); Carbon Dioxide 23 mmol/L (22-29); Chloride 105 mmol/L (98-107); Estimated GFR 28; Glucose 176 mg/dL (70-105); Sodium 135 mmol/L (136-145)
[2022-06-28 08:06] LABS: Albumin 3.3 g/dL (3.5-5.0); Phosphorus 4.2 mg/dL (2.3-4.7)
[2022-06-28] MEDS ORDERED: Insulin Regular 300 UNITS/3 ML VIAL IVP SCH (08:15)
[2022-06-28] MEDS ORDERED: Dextrose 50% Abboject 50 ML SYRINGE SLOW IVP SCH (08:15)
[2022-06-28] MEDS: Gabapentin 300 MG CAP PO SCH ×2 (10:12→20:05)
[2022-06-28] MEDS: Pregabalin 25 MG CAP PO SCH ×2 (10:13→20:26)
[2022-06-28] MEDS: Carvedilol 6.25 MG TAB PO SCH ×2 (10:13→20:07)
[2022-06-28] MEDS: Sodium Bicarbonate Tab 325 MG TAB PO SCH ×3 (10:13→20:04)
[2022-06-28] MEDS: valACYclovir 500 MG TAB PO SCH ×2 (10:13→20:07)
[2022-06-28] MEDS: Amlodipine 10 MG TAB PO SCH (10:13)
[2022-06-28] MEDS: methylPREDNISolone Sod Succ 40 MG VIAL IVP SCH (10:15)
[2022-06-28] MEDS: Ergocalciferol 1.25 MG(50,000 UNITS) CAP PO SCH (10:18)
[2022-06-28] MEDS: HumuLIN 70/30 (300 UNITS/3 ML VIAL) SC SCH ×2 (10:20→20:25)
[2022-06-28] MEDS: LOKELMA 10 GM PACKET PO SCH ×3 (10:21→17:00)
[2022-06-28] MEDS: Mupirocin 2% Ointment 22 GM Tube TOP SCH ×3 (10:25→20:26)
[2022-06-28] MEDS: Loratadine 10 MG TAB PO SCH (10:27)
[2022-06-28] MEDS: Ondansetron PF 4 MG/2 ML Vial IVP PRN ×2 (10:31→20:11)
[2022-06-28 11:47] LABS: Band 1 % (5-11); MDiff Complete? YES; Neutrophil 83 % (42-75)
[2022-06-28 11:48] LABS: Lymphocytes 9 % (21-51); Monocytes 7 % (0-10); Platelet Morphology Comment Appears Decreased; Polychromasia SLIGHT = 2-3 cells (100X) (0-2/hpf)
[2022-06-28] MEDS ORDERED: Promethazine HCl 25 MG in Sodium Chloride 0.9% 50 ML IVPB PRN (11:59)
[2022-06-28] MEDS: Scopolamine 1.5 mg/72 hour Patch TD SCH (13:55)
[2022-06-28 17:49] LABS: Hemoglobin 9.8 g/dL (12.0-16.0); Platelet Count 129 10x3/uL (130-400)
[2022-06-28] MEDS: Pantoprazole 40 MG VIAL IVP SCH (20:01)
[2022-06-28] MEDS: Atorvastatin Calcium 10 MG TAB PO SCH (20:07)
[2022-06-29] MEDS: HumaLOG 300 UNITS/3 ML VIAL SC PRN ×4 (00:23→21:09)
[2022-06-29] MEDS: Levalbuterol HCl 0.63 MG/3 ML NEB NEB SCH ×2 (03:38→07:00)
[2022-06-29] MEDS: Arformoterol 15 MCG/2 ML NEB NEB SCH ×2 (06:30→18:28)
[2022-06-29] MEDS: Budesonide 0.5 MG/2 ML NEB NEB SCH ×2 (06:35→18:28)
[2022-06-29 07:22] LABS: Anion Gap 14 mmol/L (10-20); BUN (Urea Nitrogen) 76 mg/dL (7.0-18.7); Calc. Creatinine Clearance 61 mL/min (70-130); Calcium 8.4 mg/dL (7.8-10.44); Carbon Dioxide 19 mmol/L (22-29); Chloride 108 mmol/L (98-107); Estimated GFR 29; Glucose 288 mg/dL (70-105); Potassium 4.7 mmol/L (3.5-5.1); Sodium 136 mmol/L (136-145)
[2022-06-29 07:24] LABS: Hemoglobin 9.1 g/dL (12.0-16.0); Mean Corpuscular HGB CONC 34.8 g/dL (32.0-36.0); Mean Corpuscular Hemoglobin 30.9 pg (27.0-31.0); Mean Corpuscular Volume 88.9 fl (78.0-98.0); Mean Platelet Volume 9.7 fL (7.4-10.4); Platelet Count 91 10x3/uL (130-400); RBC Distribution Width 16.6 % (11.5-14.5); Red Blood Cell (RBC) Count 2.96 mill/uL (4.20-5.40); White Blood Cell (WBC) Count 4.3 10x3/uL (4.8-10.8)
[2022-06-29] MEDS: Loratadine 10 MG TAB PO SCH (08:35)
[2022-06-29] MEDS: Carvedilol 6.25 MG TAB PO SCH ×2 (08:35→21:16)
[2022-06-29] MEDS: Amlodipine 10 MG TAB PO SCH (08:35)
[2022-06-29] MEDS: Sodium Bicarbonate Tab 325 MG TAB PO SCH ×3 (08:35→21:18)
[2022-06-29] MEDS: Gabapentin 300 MG CAP PO SCH ×2 (08:35→21:17)
[2022-06-29] MEDS: valACYclovir 500 MG TAB PO SCH ×2 (08:35→21:17)
[2022-06-29] MEDS: predniSONE 20 MG TAB PO SCH (08:35)
[2022-06-29] MEDS: Mupirocin 2% Ointment 22 GM Tube TOP SCH ×3 (08:36→21:17)
[2022-06-29] MEDS: HumuLIN 70/30 100 Unit/ ml Vial SC SCH ×2 (08:36→21:05)
[2022-06-29] MEDS: Pregabalin 25 MG CAP PO SCH ×2 (08:36→21:19)
[2022-06-29] MEDS ORDERED: Mag-Al 1200 mg/1200 mg/30 ML UDCUP PO PRN (09:14)
[2022-06-29] MEDS ORDERED: Lidocaine 4% Patch TD SCH (09:15)
[2022-06-29] MEDS: Piperacillin/Tazobactam 3.375 GM in Sodium Chloride 0.9% 100 ML IVPB SCH (10:04)
[2022-06-29] MEDS: Acetaminophen 325 MG TAB PO PRN (10:05)
[2022-06-29 10:34] LABS: Band 3 % (5-11); Lymphocytes 27 % (21-51); MDiff Complete? YES; Metamyelocyte 2 % (0-0); Monocytes 4 % (0-10); Myelocyte 2 % (0-0); Neutrophil 62 % (42-75); Platelet Morphology Comment Appears Decreased; Polychromasia SLIGHT = 2-3 cells (100X) (0-2/hpf)
[2022-06-29] MEDS: Sodium Bicarbonate 50 MEQ in Sodium Chloride 0.45% 1,000 ML IV SCH ×2 (12:30→18:35)
[2022-06-29] MEDS: Scopolamine 1.5 mg/72 hour Patch TD SCH (12:55)
[2022-06-29 14:52] VITALS: BMI 40.8
[2022-06-29] MEDS ORDERED: Preparation H Suppository PR PRN (15:42)
[2022-06-29] MEDS: Atorvastatin Calcium 10 MG TAB PO SCH (21:17)
[2022-06-29] MEDS: Pantoprazole 40 MG VIAL IVP SCH (21:18)
[2022-06-29] MEDS: Transdermal Patch Removal TOP SCH (21:20)
[2022-06-30] MEDS: Sodium Bicarbonate 50 MEQ in Sodium Chloride 0.45% 1,000 ML IV SCH ×3 (00:01→15:51)
[2022-06-30] MEDS: HumaLOG 300 UNITS/3 ML VIAL SC PRN ×5 (00:03→23:40)
[2022-06-30] MEDS: Acetaminophen 325 MG TAB PO PRN ×2 (00:11→11:35)
[2022-06-30 07:59] LABS: Anion Gap 14 mmol/L (10-20); BUN (Urea Nitrogen) 71 mg/dL (7.0-18.7); Calc. Creatinine Clearance 75 mL/min (70-130); Calcium 8.3 mg/dL (7.8-10.44); Carbon Dioxide 19 mmol/L (22-29); Chloride 109 mmol/L (98-107); Estimated GFR 37; Glucose 109 mg/dL (70-105); Potassium 4.6 mmol/L (3.5-5.1); Sodium 137 mmol/L (136-145)
[2022-06-30 08:04] LABS: Hemoglobin 9.1 g/dL (12.0-16.0); Mean Corpuscular HGB CONC 35.5 g/dL (32.0-36.0); Mean Corpuscular Hemoglobin 31.6 pg (27.0-31.0); Mean Corpuscular Volume 89.1 fl (78.0-98.0); RBC Distribution Width 16.2 % (11.5-14.5); Red Blood Cell (RBC) Count 2.86 mill/uL (4.20-5.40); White Blood Cell (WBC) Count 4.3 10x3/uL (4.8-10.8)
[2022-06-30] MEDS: predniSONE 20 MG TAB PO SCH (08:32)
[2022-06-30] MEDS: valACYclovir 500 MG TAB PO SCH ×2 (08:32→19:44)
[2022-06-30] MEDS: Pregabalin 25 MG CAP PO SCH ×2 (08:32→19:45)
[2022-06-30] MEDS: Sodium Bicarbonate Tab 325 MG TAB PO SCH ×3 (08:32→19:46)
[2022-06-30] MEDS: Lidocaine 4% Patch TD SCH (08:33)
[2022-06-30] MEDS: Carvedilol 6.25 MG TAB PO SCH ×2 (08:33→19:45)
[2022-06-30] MEDS: HumuLIN 70/30 100 Unit/ ml Vial SC SCH ×2 (08:33→19:40)
[2022-06-30] MEDS: Gabapentin 300 MG CAP PO SCH ×2 (08:33→19:44)
[2022-06-30] MEDS: Amlodipine 10 MG TAB PO SCH (08:33)
[2022-06-30] MEDS: Loratadine 10 MG TAB PO SCH (08:33)
[2022-06-30] MEDS: Mupirocin 2% Ointment 22 GM Tube TOP SCH ×3 (08:34→19:44)
[2022-06-30] MEDS: Arformoterol 15 MCG/2 ML NEB NEB SCH ×2 (08:45→18:30)
[2022-06-30] MEDS: Budesonide 0.5 MG/2 ML NEB NEB SCH ×2 (08:46→18:31)
[2022-06-30] MEDS: Albuterol 200 PUFF (6.7GM INHALER) INH PRN ×3 (08:47→18:28)
[2022-06-30 10:41] LABS: Anisocytosis SLIGHT = 6-15 cells (100X) (0-5/hpf); Band 2 % (5-11); Lymphocytes 30 % (21-51); MDiff Complete? YES; Mean Platelet Volume 9.7 fL (7.4-10.4); Microcytosis SLIGHT = 6-15 cells (100X) (0-5/hpf); Monocytes 12 % (0-10); Neutrophil 56 % (42-75); Nucleated RBC 4 % (0); Ovalocytes SLIGHT = 2-5 cells (100X) (0-1/hpf); Platelet Count 82 10x3/uL (130-400); Platelet Morphology Comment Appears Decreased; Polychromasia SLIGHT = 2-3 cells (100X) (0-2/hpf)
[2022-06-30] MEDS ORDERED: Cyclobenzaprine 10 MG TAB PO SCH (12:00)
[2022-06-30] MEDS: Scopolamine 1.5 mg/72 hour Patch TD SCH (12:03)
[2022-06-30 17:56] LABS: Hemoglobin 9.9 g/dL (12.0-16.0); Platelet Count 87 10x3/uL (130-400)
[2022-06-30] MEDS: Atorvastatin Calcium 10 MG TAB PO SCH (19:44)
[2022-06-30] MEDS: Pantoprazole 40 MG VIAL IVP SCH (19:46)
[2022-06-30] MEDS: Transdermal Patch Removal TOP SCH (20:00)
[2022-06-30] MEDS: Cyclobenzaprine 10 MG TAB PO PRN (23:42)
[2022-07-01 08:41] LABS: Mean Corpuscular HGB CONC 34.5 g/dL (32.0-36.0); Mean Corpuscular Hemoglobin 30.9 pg (27.0-31.0); Mean Corpuscular Volume 89.5 fl (78.0-98.0); RBC Distribution Width 17.8 % (11.5-14.5); Red Blood Cell (RBC) Count 3.25 mill/uL (4.20-5.40)
[2022-07-01] MEDS: Arformoterol 15 MCG/2 ML NEB NEB SCH ×2 (09:02→18:49)
[2022-07-01] MEDS: Budesonide 0.5 MG/2 ML NEB NEB SCH ×2 (09:02→18:50)
[2022-07-01 09:07] LABS: Anion Gap 15 mmol/L (10-20); BUN (Urea Nitrogen) 70 mg/dL (7.0-18.7); Calc. Creatinine Clearance 80 mL/min (70-130); Calcium 8.8 mg/dL (7.8-10.44); Carbon Dioxide 20 mmol/L (22-29); Chloride 107 mmol/L (98-107); Estimated GFR 40; Glucose 187 mg/dL (70-105); Sodium 137 mmol/L (136-145)
[2022-07-01] MEDS: Mupirocin 2% Ointment 22 GM Tube TOP SCH ×3 (09:32→20:53)
[2022-07-01] MEDS: Gabapentin 300 MG CAP PO SCH ×2 (09:33→20:39)
[2022-07-01] MEDS: Amlodipine 10 MG TAB PO SCH (09:33)
[2022-07-01] MEDS: predniSONE 20 MG TAB PO SCH (09:33)
[2022-07-01] MEDS: Loratadine 10 MG TAB PO SCH (09:34)
[2022-07-01] MEDS: Pregabalin 25 MG CAP PO SCH ×2 (09:34→20:38)
[2022-07-01] MEDS: Carvedilol 6.25 MG TAB PO SCH ×2 (09:34→20:38)
[2022-07-01] MEDS: Sodium Bicarbonate Tab 325 MG TAB PO SCH ×3 (09:34→20:39)
[2022-07-01] MEDS: HumuLIN 70/30 100 Unit/ ml Vial SC SCH ×2 (09:35→20:40)
[2022-07-01 09:41] LABS: Anisocytosis SLIGHT = 6-15 cells (100X) (0-5/hpf); Band 4 % (5-11); Lymphocytes 36 % (21-51); MDiff Complete? YES; Mean Platelet Volume 10.6 fL (7.4-10.4); Monocytes 12 % (0-10); Neutrophil 48 % (42-75); Nucleated RBC 2 % (0); Platelet Count 92 10x3/uL (130-400); Platelet Morphology Comment Appears Decreased; Polychromasia SLIGHT = 2-3 cells (100X) (0-2/hpf)
[2022-07-01] MEDS ORDERED: Pregabalin 25 MG CAP PO SCH (09:45)
[2022-07-01] MEDS: valACYclovir 500 MG TAB PO SCH ×2 (09:47→20:38)
[2022-07-01] MEDS: Lidocaine 4% Patch TD SCH (09:49)
[2022-07-01] MEDS: HumaLOG 300 UNITS/3 ML VIAL SC PRN ×4 (12:49→23:34)
[2022-07-01] MEDS: Albuterol 200 PUFF (6.7GM INHALER) INH PRN ×2 (13:08→18:49)
[2022-07-01] MEDS: Cyclobenzaprine 10 MG TAB PO PRN ×2 (14:57→22:49)
[2022-07-01] MEDS ORDERED: Carvedilol 6.25 MG TAB PO SCH (15:00)
[2022-07-01] MEDS: Pantoprazole 40 MG VIAL IVP SCH (20:34)
[2022-07-01] MEDS: Atorvastatin Calcium 10 MG TAB PO SCH (20:37)
[2022-07-01] MEDS: Transdermal Patch Removal TOP SCH (20:56)
[2022-07-02 07:19] LABS: Anion Gap 12 mmol/L (10-20); BUN (Urea Nitrogen) 77 mg/dL (7.0-18.7); Calc. Creatinine Clearance 90 mL/min (70-130); Calcium 8.6 mg/dL (7.8-10.44); Carbon Dioxide 22 mmol/L (22-29); Chloride 108 mmol/L (98-107); Estimated GFR 46; Glucose 107 mg/dL (70-105); Potassium 5.2 mmol/L (3.5-5.1); Sodium 137 mmol/L (136-145)
[2022-07-02] MEDS: Albuterol 200 PUFF (6.7GM INHALER) INH PRN (07:26)
[2022-07-02] MEDS: Budesonide 0.5 MG/2 ML NEB NEB SCH (07:27)
[2022-07-02] MEDS: Arformoterol 15 MCG/2 ML NEB NEB SCH (07:27)
[2022-07-02 08:35] LABS: #Eosinphils 0.1 thou/uL (0.0-0.7); #Monocytes 0.4 thou/uL (0.11-0.59); #Neutrophils 2.2 thou/uL (1.40-6.50); %Eosinophils 2.3 % (0.0-10.0); %Lymphocytes 26.5 % (21.0-51.0); %Monocytes 9.6 % (0.0-10.0); Hemoglobin 8.6 g/dL (12.0-16.0); Mean Corpuscular Hemoglobin 31.9 pg (27.0-31.0); Mean Corpuscular Volume 88.7 fl (78.0-98.0); Mean Platelet Volume 10.9 fL (7.4-10.4); Platelet Count 66 10x3/uL (130-400); RBC Distribution Width 17.8 % (11.5-14.5); White Blood Cell (WBC) Count 3.6 10x3/uL (4.8-10.8)
[2022-07-02 08:50] VITALS: TEMP 98.1
[2022-07-02] MEDS: Lidocaine 4% Patch TD SCH (09:27)
[2022-07-02] MEDS: Gabapentin 300 MG CAP PO SCH (09:27)
[2022-07-02] MEDS: Amlodipine 10 MG TAB PO SCH (09:28)
[2022-07-02] MEDS: Sodium Bicarbonate Tab 325 MG TAB PO SCH (09:28)
[2022-07-02] MEDS: valACYclovir 500 MG TAB PO SCH (09:28)
[2022-07-02] MEDS: Carvedilol 6.25 MG TAB PO SCH (09:28)
[2022-07-02] MEDS: Loratadine 10 MG TAB PO SCH (09:28)
[2022-07-02] MEDS: predniSONE 20 MG TAB PO SCH (09:28)
[2022-07-02] MEDS: HumuLIN 70/30 100 Unit/ ml Vial SC SCH (09:30)
[2022-07-02] MEDS: Mupirocin 2% Ointment 22 GM Tube TOP SCH (09:30)
[2022-07-02] MEDS: Pregabalin 25 MG CAP PO SCH (09:41)
[2022-07-02 09:47] VITALS: BP 135/91
== END 2022-07-02 10:39 | disposition home or self-care (01) | DRG 871 ==
LOC: ERS 11:57 → IMCU/EMU 17:36 → T4-A 06-24 21:57
PROVIDERS: ADMIT Family Medicine; ATTEND Hospitalist
DX: A41.9 Sepsis, unspecified organism (principal); I26.99 Other pulmonary embolism without acute cor pulmonale; J18.9 Pneumonia, unspecified organism; J45.901 Unspecified asthma with (acute) exacerbation; D83.9 Common variable immunodeficiency, unspecified; D58.9 Hereditary hemolytic anemia, unspecified; E87.20 Acidosis, unspecified; N17.9 Acute kidney failure, unspecified; E87.1 Hypo-osmolality and hyponatremia; Z68.41 Body mass index [BMI] 40.0-44.9, adult; D61.818 Other pancytopenia; B00.2 Herpesviral gingivostomatitis and pharyngotonsillitis; D69.3 Immune thrombocytopenic purpura; E78.5 Hyperlipidemia, unspecified; N18.30 Chronic kidney disease, stage 3 unspecified; E87.5 Hyperkalemia; I12.9 Hypertensive chronic kidney disease with stage 1 through stage 4 chronic kidney disease, or unspecified chronic kidney disease; F79 Unspecified intellectual disabilities; R31.29 Other microscopic hematuria; K21.9 Gastro-esophageal reflux disease without esophagitis; E86.9 Volume depletion, unspecified; D63.1 Anemia in chronic kidney disease; E10.42 Type 1 diabetes mellitus with diabetic polyneuropathy; E10.22 Type 1 diabetes mellitus with diabetic chronic kidney disease; E88.09 Other disorders of plasma-protein metabolism, not elsewhere classified; B00.1 Herpesviral vesicular dermatitis; E66.01 Morbid (severe) obesity due to excess calories; E55.9 Vitamin D deficiency, unspecified; Z88.1 Allergy status to other antibiotic agents; Z88.2 Allergy status to sulfonamides; Z88.8 Allergy status to other drugs, medicaments and biological substances; Z79.899 Other long term (current) drug therapy; Z79.4 Long term (current) use of insulin
CPT/HCPCS: 36415; 36416; 71045; 71046; 78451; 80048; 80053; 80069; 80202; 81001; 82010; 82040; 82306; 82550; 82553; 82570; 82805; 83605; 83735; 83880; 84100; 84145; 84300; 84443; 85014; 85018; 85025; 85049; 85379; 85610; 85652; 85730; 86140; 86361; 86606; 87040; 87081; 87389; 87449; 87899; 93005; 93010; 93306; 93970; 94760; 96361; 96374; A4217; A9540; C9113; J0612; J0692; J1644; J1815; J1956; J2405; J2543; J2550; J2920; J3370; J3370-JW; J3475; J3490; J7050; J7070; J7512; J7614; J7626; J7999; Q0163

== ENCOUNTER 2022-08-28 07:41 | Inpatient (IN) | payer OTHER ==
[2022-08-30] MEDS ORDERED: Calcium Gluc 4.6 MEQ/10 ML (100 MG/ML) SLOW IVP SCH (16:14)
[2022-08-30] MEDS ORDERED: Electrolyte Replacement Protocol 1 EACH IVPB PRN (16:15)
[2022-08-30] MEDS ORDERED: NS 0.9% w/ 20 MEQ KCL 1,000 ML IV PRN ×2 (16:15)
[2022-08-30] MEDS ORDERED: Sodium Chloride 0.9% 1,000 ML IV PRN ×4 (16:15)
[2022-08-30] MEDS ORDERED: Dextrose 50% Abboject 50 ML SYRINGE SLOW IVP PRN (16:15)
[2022-08-30] MEDS ORDERED: Dextrose 5 %-0.45 % NaCl 1,000 ML IV PRN (16:15)
[2022-08-30] MEDS ORDERED: D5 1/2 NS w/20 mEq KCL 1,000 ML IV PRN (16:15)
[2022-08-30] MEDS ORDERED: Piperacillin/Tazobactam 3.375 GM in Sodium Chloride 0.9% 100 ML IVPB SCH (17:00)
[2022-08-30 17:13] LABS: ALT (SGPT) 19 U/L (8-55); AST (SGOT) 17 U/L (5-34); Albumin 3.7 g/dL (3.5-5.0); Alkaline Phosphatase 74 U/L (40-110); Anion Gap 16 mmol/L (10-20); BUN (Urea Nitrogen) 30 mg/dL (7.0-18.7); Bilirubin, Total 0.4 mg/dL (0.2-1.2); Calc. Creatinine Clearance 0 mL/min (70-130); Calcium 9.9 mg/dL (7.8-10.44); Carbon Dioxide 16 mmol/L (22-29); Chloride 104 mmol/L (98-107); Estimated GFR 30; Globulin 2.8 g/dL (2.4-3.5); Potassium 5.7 mmol/L (3.5-5.1); Protein, Total 6.5 g/dL (6.0-8.3); Sodium 130 mmol/L (136-145)
[2022-08-30 17:51] LABS: Hemoglobin 9.7 g/dL (12.0-16.0); Mean Corpuscular HGB CONC 33.8 g/dL (32.0-36.0); Mean Corpuscular Hemoglobin 29.3 pg (27.0-31.0); Mean Corpuscular Volume 86.7 fl (78.0-98.0); Mean Platelet Volume 13.1 fL (7.4-10.4); RBC Distribution Width 14.6 % (11.5-14.5); Red Blood Cell (RBC) Count 3.31 mill/uL (4.20-5.40); White Blood Cell (WBC) Count 2.7 10x3/uL (4.8-10.8)
[2022-08-30 18:00] LABS: Glucose 621 mg/dL (70-105)
[2022-08-30 18:02] LABS: Platelet Count 79 10x3/uL (130-400)
[2022-08-30 18:04] LABS: Delete Auto Diff?? YES; Manual Diff?? YES
[2022-08-30] MEDS: Ipratropium/Albuterol 3 ML NEB NEB SCH ×2 (18:07→21:38)
[2022-08-30 18:10] LABS: Lactic Acid 1.3 mmol/L (0.5-2.2)
[2022-08-30] MEDS: Doxycycline 100 MG in Sodium Chloride 0.9% 100 ML IVPB SCH (18:11)
[2022-08-30 18:13] LABS: Anion Gap 15 mmol/L (10-20); BUN (Urea Nitrogen) 31 mg/dL (7.0-18.7); Calc. Creatinine Clearance 76 mL/min (70-130); Calcium 10.3 mg/dL (7.8-10.44); Carbon Dioxide 17 mmol/L (22-29); Chloride 105 mmol/L (98-107); Estimated GFR 30; Magnesium 1.4 mg/dL (1.6-2.6); Phosphorus 2.9 mg/dL (2.3-4.7); Potassium 5.8 mmol/L (3.5-5.1); Sodium 131 mmol/L (136-145)
[2022-08-30] MEDS ORDERED: HUMULIN R 100 UNITS in Sodium Chloride 0.9% 100 ML IVPB SCH (18:15)
[2022-08-30 18:17] LABS: Glucose 604 mg/dL (70-105)
[2022-08-30] MEDS ORDERED: Electrolyte Replacement Protocol 1 EACH FS SCH (18:19)
[2022-08-30 18:46] LABS: CellaVision Operator ID LAB.KB; Lymphocytes 4 % (21-51); Monocytes 1 % (0-10); Neutrophil 95 % (42-75); Platelet Adequacy Comment Platelets Decreased; Polychromasia SLIGHT = 2-3 cells HPF (0-2); Tear Drops SLIGHT = 2-5 cells HPF (0-1); Total Cell Count 100
[2022-08-30 20:21] LABS: Bacteria/HPF None Seen HPF (None Seen); Bilirubin Negative (Negative); Blood, Urine 1+ (Negative); Clarity Clear (Clear); Glucose, Urine (Dipstick) Greater than 1000 mg/dL (Negative); Ketone, Urine Negative (Negative); Leukocyte Negative Leu/uL (Negative); Nitrite Negative (Negative); Protein, Urine (Dipstick) 200 mg/dL (Neg-Trace); RBC/HPF 0-3 HPF (0-3); Specific Gravity, Urine 1.013 (1.002-1.036); Squamous Epithelial 0-3 HPF (0-3); Urobilinogen Normal mg/dL (Less than 2); WBC/HPF 0-3 HPF (0-3)
[2022-08-30] MEDS: Carvedilol 6.25 MG TAB PO SCH (21:22)
[2022-08-30] MEDS: Pregabalin 25 MG CAP PO SCH (21:22)
[2022-08-30] MEDS: Piperacillin/Tazobactam 3.375 GM in Sodium Chloride 0.9% 100 ML IVPB SCH (21:23)
[2022-08-30] MEDS: valACYclovir 500 MG TAB PO SCH (21:23)
[2022-08-30] MEDS: Heparin 5,000 UNITS/ML VIAL SC SCH (21:23)
[2022-08-30] MEDS: Sodium Bicarbonate Tab 325 MG TAB PO SCH (21:23)
[2022-08-30] MEDS: Pantoprazole 40 MG VIAL IVP SCH (21:24)
[2022-08-30] MEDS: Fluticasone Propionate Nasal Spray 16 gm Bottle NASAL SCH (21:24)
[2022-08-30 21:41] LABS: Glucose 496 mg/dL (70-105)
[2022-08-30] MEDS ORDERED: Ondansetron PF 4 MG/2 ML Vial IVP PRN (21:56)
[2022-08-31] LABS: Anion Gap 14 mmol/L (10-20); BUN (Urea Nitrogen) 30 mg/dL (7.0-18.7); Calc. Creatinine Clearance 80 mL/min (70-130); Calcium 9.4 mg/dL (7.8-10.44); Carbon Dioxide 17 mmol/L (22-29); Chloride 109 mmol/L (98-107); Estimated GFR 32; Glucose 383 mg/dL (70-105); Potassium 4.7 mmol/L (3.5-5.1); Sodium 135 mmol/L (136-145)
[2022-08-31] MEDS ORDERED: Magnesium Sulfate In Water 4 GM in Premix Bag 1 BAG IVPB SCH (02:00)
[2022-08-31] MEDS: Ipratropium/Albuterol 3 ML NEB NEB SCH ×6 (02:48→22:29)
[2022-08-31] MEDS ORDERED: HumaLOG 300 UNITS/3 ML VIAL SC SCH (03:30)
[2022-08-31] MEDS ORDERED: Insulin Glargine 30 UNITS/0.3 ML VIAL SC SCH (03:30)
[2022-08-31 03:35] LABS: #Monocytes 0.4 thou/uL (0.11-0.59); #Neutrophils 2.8 thou/uL (1.40-6.50); %Basophils 0.3 % (0.0-1.0); %Lymphocytes 12.5 % (21.0-51.0); %Monocytes 9.4 % (0.0-10.0); %Neutrophils 73.1 % (42.0-75.0); Hemoglobin 8.4 g/dL (12.0-16.0); Mean Corpuscular HGB CONC 33.3 g/dL (32.0-36.0); Mean Corpuscular Hemoglobin 28.9 pg (27.0-31.0); Mean Corpuscular Volume 86.6 fl (78.0-98.0); Mean Platelet Volume 11.1 fL (7.4-10.4); RBC Distribution Width 14.6 % (11.5-14.5); Red Blood Cell (RBC) Count 2.91 mill/uL (4.20-5.40); White Blood Cell (WBC) Count 3.8 10x3/uL (4.8-10.8)
[2022-08-31 03:43] LABS: Hemoglobin A1c 7.8 % (4.0-6.0)
[2022-08-31 04:28] LABS: ALT (SGPT) 14 U/L (8-55); AST (SGOT) 7 U/L (5-34); Albumin 3.3 g/dL (3.5-5.0); Alkaline Phosphatase 59 U/L (40-110); Anion Gap 13 mmol/L (10-20); BUN (Urea Nitrogen) 30 mg/dL (7.0-18.7); Bilirubin, Total 0.4 mg/dL (0.2-1.2); Calc. Creatinine Clearance 88 mL/min (70-130); Calcium 9.4 mg/dL (7.8-10.44); Carbon Dioxide 20 mmol/L (22-29); Chloride 111 mmol/L (98-107); Estimated GFR 36; Glucose 164 mg/dL (70-105); Potassium 4.8 mmol/L (3.5-5.1); Protein, Total 5.3 g/dL (6.0-8.3); Sodium 139 mmol/L (136-145)
[2022-08-31] MEDS: Doxycycline 100 MG in Sodium Chloride 0.9% 100 ML IVPB SCH ×2 (04:35→17:02)
[2022-08-31] MEDS: Piperacillin/Tazobactam 3.375 GM in Sodium Chloride 0.9% 100 ML IVPB SCH ×3 (04:36→21:31)
[2022-08-31 05:13] LABS: Platelet Count 83 10x3/uL (130-400)
[2022-08-31 07:48] LABS: Anion Gap 15 mmol/L (10-20); BUN (Urea Nitrogen) 30 mg/dL (7.0-18.7); Calc. Creatinine Clearance 65 mL/min (70-130); Calcium 8.9 mg/dL (7.8-10.44); Carbon Dioxide 16 mmol/L (22-29); Chloride 110 mmol/L (98-107); Estimated GFR 34; Glucose 339 mg/dL (70-105); Potassium 5.1 mmol/L (3.5-5.1); Sodium 136 mmol/L (136-145)
[2022-08-31] MEDS: Carvedilol 6.25 MG TAB PO SCH ×2 (09:12→21:35)
[2022-08-31] MEDS: Pregabalin 25 MG CAP PO SCH ×2 (09:12→21:37)
[2022-08-31] MEDS: Fioricet 325/50/40 mg Tablet PO SCH (09:13)
[2022-08-31] MEDS: Pantoprazole 40 MG VIAL IVP SCH ×2 (09:13→21:37)
[2022-08-31] MEDS: HumaLOG 300 UNITS/3 ML VIAL SC PRN ×4 (09:13→21:53)
[2022-08-31] MEDS: Atorvastatin Calcium 10 MG TAB PO SCH (09:14)
[2022-08-31] MEDS: Fluticasone Propionate Nasal Spray 16 gm Bottle NASAL SCH ×2 (09:14→21:35)
[2022-08-31] MEDS: Heparin 5,000 UNITS/ML VIAL SC SCH ×3 (09:14→21:35)
[2022-08-31] MEDS: Sodium Bicarbonate Tab 325 MG TAB PO SCH ×3 (09:14→21:38)
[2022-08-31] MEDS: Amlodipine 5 MG TAB PO SCH (09:19)
[2022-08-31] MEDS: valACYclovir 500 MG TAB PO SCH ×2 (11:28→21:38)
[2022-08-31] MEDS: Insulin Glargine 30 UNITS/0.3 ML VIAL SC SCH (21:36)
[2022-09-01] MEDS: Ipratropium/Albuterol 3 ML NEB NEB SCH ×6 (01:55→22:23)
[2022-09-01 04:01] LABS: Mean Corpuscular HGB CONC 32.7 g/dL (32.0-36.0); Mean Corpuscular Hemoglobin 28.9 pg (27.0-31.0); Mean Corpuscular Volume 88.4 fl (78.0-98.0); Mean Platelet Volume 11.3 fL (7.4-10.4); RBC Distribution Width 14.5 % (11.5-14.5); Red Blood Cell (RBC) Count 2.77 mill/uL (4.20-5.40); White Blood Cell (WBC) Count 2.9 10x3/uL (4.8-10.8)
[2022-09-01 04:06] LABS: Delete Auto Diff?? YES; Manual Diff?? YES; Platelet Count 71 10x3/uL (130-400)
[2022-09-01 04:23] LABS: ALT (SGPT) 19 U/L (8-55); AST (SGOT) 12 U/L (5-34); Alkaline Phosphatase 56 U/L (40-110); Anion Gap 16 mmol/L (10-20); BUN (Urea Nitrogen) 38 mg/dL (7.0-18.7); Bilirubin, Total 0.4 mg/dL (0.2-1.2); Calc. Creatinine Clearance 50 mL/min (70-130); Calcium 8.6 mg/dL (7.8-10.44); Carbon Dioxide 15 mmol/L (22-29); Chloride 111 mmol/L (98-107); Estimated GFR 24; Globulin 1.7 g/dL (2.4-3.5); Glucose 285 mg/dL (70-105); Potassium 4.6 mmol/L (3.5-5.1); Protein, Total 4.7 g/dL (6.0-8.3); Sodium 137 mmol/L (136-145)
[2022-09-01 04:31] LABS: Band 1 % (5-11); CellaVision Operator ID lab.abc; Eosinophils 1 % (0-10); Lymphocytes 25 % (21-51); Metamyelocyte 2 % (0-0); Monocytes 1 % (0-10); Myelocyte 2 % (0-0); Neutrophil 67 % (42-75); Platelet Adequacy Comment Platelets Decreased; Polychromasia SLIGHT = 2-3 cells HPF (0-2); Tear Drops SLIGHT = 2-5 cells HPF (0-1); Total Cell Count 101
[2022-09-01] MEDS: Doxycycline 100 MG in Sodium Chloride 0.9% 100 ML IVPB SCH ×2 (04:54→16:57)
[2022-09-01] MEDS: Piperacillin/Tazobactam 3.375 GM in Sodium Chloride 0.9% 100 ML IVPB SCH ×3 (06:33→21:51)
[2022-09-01] MEDS: HumaLOG 300 UNITS/3 ML VIAL SC PRN ×4 (06:34→22:24)
[2022-09-01] MEDS: Pantoprazole 40 MG VIAL IVP SCH (08:24)
[2022-09-01] MEDS: Amlodipine 5 MG TAB PO SCH (08:25)
[2022-09-01] MEDS: Pregabalin 25 MG CAP PO SCH ×2 (08:25→22:03)
[2022-09-01] MEDS: Insulin Glargine 30 UNITS/0.3 ML VIAL SC SCH (08:25)
[2022-09-01] MEDS: Atorvastatin Calcium 10 MG TAB PO SCH (08:25)
[2022-09-01] MEDS: Carvedilol 6.25 MG TAB PO SCH ×2 (08:25→21:57)
[2022-09-01] MEDS: valACYclovir 500 MG TAB PO SCH ×2 (08:25→21:57)
[2022-09-01] MEDS: Fioricet 325/50/40 mg Tablet PO SCH (08:34)
[2022-09-01] MEDS: Fluticasone Propionate Nasal Spray 16 gm Bottle NASAL SCH ×2 (08:34→22:15)
[2022-09-01] MEDS: Sodium Bicarbonate Tab 325 MG TAB PO SCH ×3 (09:48→22:19)
[2022-09-01] MEDS: Heparin 5,000 UNITS/ML VIAL SC SCH ×3 (09:48→22:16)
[2022-09-01] MEDS: Mometasone/Formoterol 60 PUFF AER INH SCH (18:45)
[2022-09-01] MEDS: HumuLIN 70/30 (300 UNITS/3 ML VIAL) SC SCH (22:05)
[2022-09-02] MEDS: Ipratropium/Albuterol 3 ML NEB NEB SCH ×6 (02:24→22:02)
[2022-09-02] MEDS: Doxycycline 100 MG in Sodium Chloride 0.9% 100 ML IVPB SCH ×2 (04:21→16:41)
[2022-09-02 05:26] LABS: Hemoglobin 8.1 g/dL (12.0-16.0); Mean Corpuscular HGB CONC 32.4 g/dL (32.0-36.0); Mean Corpuscular Hemoglobin 28.9 pg (27.0-31.0); Mean Corpuscular Volume 89.3 fl (78.0-98.0); Mean Platelet Volume 12.2 fL (7.4-10.4); RBC Distribution Width 14.4 % (11.5-14.5); White Blood Cell (WBC) Count 2.7 10x3/uL (4.8-10.8)
[2022-09-02 05:29] LABS: Delete Auto Diff?? YES; Manual Diff?? YES; Platelet Count 68 10x3/uL (130-400)
[2022-09-02 05:51] LABS: ALT (SGPT) 18 U/L (8-55); AST (SGOT) 12 U/L (5-34); Albumin 3.1 g/dL (3.5-5.0); Alkaline Phosphatase 50 U/L (40-110); Anion Gap 12 mmol/L (10-20); BUN (Urea Nitrogen) 40 mg/dL (7.0-18.7); Bilirubin, Total 0.4 mg/dL (0.2-1.2); Calc. Creatinine Clearance 54 mL/min (70-130); Calcium 8.6 mg/dL (7.8-10.44); Carbon Dioxide 19 mmol/L (22-29); Chloride 113 mmol/L (98-107); Estimated GFR 26; Globulin 1.7 g/dL (2.4-3.5); Glucose 153 mg/dL (70-105); Magnesium 1.7 mg/dL (1.6-2.6); Potassium 4.3 mmol/L (3.5-5.1); Protein, Total 4.8 g/dL (6.0-8.3); Sodium 140 mmol/L (136-145)
[2022-09-02] MEDS: Piperacillin/Tazobactam 3.375 GM in Sodium Chloride 0.9% 100 ML IVPB SCH ×3 (05:51→19:46)
[2022-09-02 06:34] LABS: Anisocytosis SLIGHT = 6-15 cells HPF (0-5); Band 6 % (5-11); CellaVision Operator ID LAB.JMM; Eosinophils 2 % (0-10); Lymphocytes 21 % (21-51); Metamyelocyte 2 % (0-0); Monocytes 2 % (0-10); Myelocyte 1 % (0-0); Neutrophil 66 % (42-75); Nucleated RBC (Manual Ct) 3 % (0); Ovalocytes SLIGHT = 2-5 cells HPF (0-1); Platelet Adequacy Comment Platelets Decreased; Polychromasia SLIGHT = 2-3 cells HPF (0-2); Tear Drops SLIGHT = 2-5 cells HPF (0-1); Total Cell Count 102
[2022-09-02] MEDS: Mometasone/Formoterol 60 PUFF AER INH SCH (06:46)
[2022-09-02] MEDS ORDERED: Magnesium 2 GM/50 ML(in water) 2 GM in Premix Bag 1 BAG IVPB SCH (08:00)
[2022-09-02] MEDS ORDERED: HumuLIN 70/30 100 Unit/ ml Vial SC SCH ×2 (09:00→21:00)
[2022-09-02] MEDS: Sodium Bicarbonate Tab 325 MG TAB PO SCH ×3 (09:03→19:44)
[2022-09-02] MEDS: valACYclovir 500 MG TAB PO SCH ×2 (09:03→19:45)
[2022-09-02] MEDS: Heparin 5,000 UNITS/ML VIAL SC SCH (09:04)
[2022-09-02] MEDS: Fluticasone Propionate Nasal Spray 16 gm Bottle NASAL SCH ×2 (09:04→19:46)
[2022-09-02] MEDS: Amlodipine 5 MG TAB PO SCH (09:04)
[2022-09-02] MEDS: Carvedilol 6.25 MG TAB PO SCH ×2 (09:05→19:45)
[2022-09-02] MEDS: Pregabalin 25 MG CAP PO SCH ×2 (09:05→19:45)
[2022-09-02] MEDS: Atorvastatin Calcium 10 MG TAB PO SCH (09:06)
[2022-09-02] MEDS: HumuLIN 70/30 (300 UNITS/3 ML VIAL) SC SCH (09:06)
[2022-09-02] MEDS: Fioricet 325/50/40 mg Tablet PO SCH (09:07)
[2022-09-02] MEDS ORDERED: Arformoterol 15 MCG/2 ML NEB NEB SCH (12:00)
[2022-09-02] MEDS ORDERED: Phenol 118 ML BOT PO PRN (12:01)
[2022-09-02] MEDS: Nystatin 500,000 UNITS/5 ML UDCUP SSW SCH ×3 (13:02→19:46)
[2022-09-02] MEDS: Benzonatate 100 MG CAP PO SCH ×2 (16:42→19:45)
[2022-09-02] MEDS: HumaLOG 300 UNITS/3 ML VIAL SC PRN (18:30)
[2022-09-02] MEDS: Budesonide 0.5 MG/2 ML NEB NEB SCH (18:40)
[2022-09-02] MEDS: Arformoterol 15 MCG/2 ML NEB NEB SCH (18:40)
[2022-09-02] MEDS: HumuLIN 70/30 100 Unit/ ml Vial SC SCH (20:38)
[2022-09-02] MEDS ORDERED: HumuLIN 70/30 (300 UNITS/3 ML VIAL) SC SCH (21:00)
[2022-09-02] MEDS ORDERED: Melatonin 3 MG TAB PO SCH ×2 (21:00→23:45)
[2022-09-02] MEDS ORDERED: Budesonide 0.5 MG/2 ML NEB NEB SCH (21:00)
[2022-09-03] MEDS: Ipratropium/Albuterol 3 ML NEB NEB SCH ×6 (02:11→22:30)
[2022-09-03 04:53] LABS: Hemoglobin 8.8 g/dL (12.0-16.0); Mean Corpuscular HGB CONC 32.7 g/dL (32.0-36.0); Mean Corpuscular Hemoglobin 29.2 pg (27.0-31.0); Mean Corpuscular Volume 89.4 fl (78.0-98.0); Mean Platelet Volume 11.2 fL (7.4-10.4); RBC Distribution Width 14.4 % (11.5-14.5); Red Blood Cell (RBC) Count 3.01 mill/uL (4.20-5.40); White Blood Cell (WBC) Count 3.4 10x3/uL (4.8-10.8)
[2022-09-03 04:56] VITALS: BMI 40.1
[2022-09-03 04:56] LABS: Delete Auto Diff?? YES; Manual Diff?? YES; Platelet Count 70 10x3/uL (130-400)
[2022-09-03 05:21] LABS: Band 2 % (5-11); CellaVision Operator ID lab.abc; Eosinophils 4 % (0-10); Large Platelets 10.3 % (0-5); Lymphocytes 36 % (21-51); Monocytes 7 % (0-10); Myelocyte 2 % (0-0); Neutrophil 47 % (42-75); Nucleated RBC (Manual Ct) 2 % (0); Platelet Adequacy Comment Platelets Decreased; Polychromasia SLIGHT = 2-3 cells HPF (0-2); RBC Morphology Within Normal Limits; Reactive Lymphocytes 1 % (0-10); Smudge Cells 17.2 %; Total Cell Count 116
[2022-09-03] MEDS: Piperacillin/Tazobactam 3.375 GM in Sodium Chloride 0.9% 100 ML IVPB SCH ×2 (05:37→12:38)
[2022-09-03] MEDS: Doxycycline 100 MG in Sodium Chloride 0.9% 100 ML IVPB SCH ×2 (05:40→18:19)
[2022-09-03] MEDS: Arformoterol 15 MCG/2 ML NEB NEB SCH ×2 (07:52→18:40)
[2022-09-03] MEDS: Budesonide 0.5 MG/2 ML NEB NEB SCH ×2 (07:52→18:39)
[2022-09-03] MEDS: Sodium Bicarbonate Tab 325 MG TAB PO SCH ×3 (08:43→21:05)
[2022-09-03] MEDS: valACYclovir 500 MG TAB PO SCH ×2 (08:43→21:11)
[2022-09-03] MEDS: Pregabalin 25 MG CAP PO SCH ×2 (08:44→21:06)
[2022-09-03] MEDS: Atorvastatin Calcium 10 MG TAB PO SCH (08:44)
[2022-09-03] MEDS: Carvedilol 6.25 MG TAB PO SCH ×2 (08:44→21:05)
[2022-09-03] MEDS: Fluticasone Propionate Nasal Spray 16 gm Bottle NASAL SCH ×2 (08:44→21:07)
[2022-09-03] MEDS: Benzonatate 100 MG CAP PO SCH ×3 (08:44→21:06)
[2022-09-03] MEDS: Fioricet 325/50/40 mg Tablet PO SCH (08:45)
[2022-09-03] MEDS: Nystatin 500,000 UNITS/5 ML UDCUP SSW SCH ×4 (08:47→21:07)
[2022-09-03] MEDS: HumuLIN 70/30 100 Unit/ ml Vial SC SCH ×2 (10:55→21:08)
[2022-09-03] MEDS ORDERED: Sodium Chloride 0.65% Nasal 44 ML BOT EA NARE PRN (12:32)
[2022-09-03] MEDS: HumaLOG 300 UNITS/3 ML VIAL SC PRN (12:38)
[2022-09-03] MEDS: Acetaminophen 650 MG/20.3 ML UDCUP PO PRN (14:28)
[2022-09-03 15:12] LABS: Anion Gap 12 mmol/L (10-20); BUN (Urea Nitrogen) 37 mg/dL (7.0-18.7); Calc. Creatinine Clearance 68 mL/min (70-130); Calcium 9.3 mg/dL (7.8-10.44); Carbon Dioxide 23 mmol/L (22-29); Chloride 109 mmol/L (98-107); Estimated GFR 34; Glucose 200 mg/dL (70-105); Potassium 4.8 mmol/L (3.5-5.1); Sodium 139 mmol/L (136-145)
[2022-09-03] MEDS: Melatonin 3 MG TAB PO SCH (21:06)
[2022-09-04] MEDS: HumaLOG 300 UNITS/3 ML VIAL SC PRN ×3 (00:32→17:44)
[2022-09-04] MEDS: Acetaminophen 650 MG/20.3 ML UDCUP PO PRN (00:32)
[2022-09-04] MEDS: Ipratropium/Albuterol 3 ML NEB NEB SCH ×6 (03:01→22:21)
[2022-09-04] MEDS: Arformoterol 15 MCG/2 ML NEB NEB SCH ×2 (06:49→18:34)
[2022-09-04] MEDS: Budesonide 0.5 MG/2 ML NEB NEB SCH ×2 (06:53→18:34)
[2022-09-04 06:54] LABS: Albumin 3.2 g/dL (3.5-5.0); Anion Gap 11 mmol/L (10-20); BUN (Urea Nitrogen) 43 mg/dL (7.0-18.7); BUN/Creatinine Ratio 22.05; Calc. Creatinine Clearance 69 mL/min (70-130); Calcium 8.8 mg/dL (7.8-10.44); Carbon Dioxide 22 mmol/L (22-29); Chloride 110 mmol/L (98-107); Estimated GFR 34; Glucose 224 mg/dL (70-105); Magnesium 1.6 mg/dL (1.6-2.6); Phosphorus 3.9 mg/dL (2.3-4.7); Potassium 4.7 mmol/L (3.5-5.1); Sodium 138 mmol/L (136-145)
[2022-09-04] MEDS ORDERED: Magnesium 2 GM/50 ML(in water) 2 GM in Premix Bag 1 BAG IVPB SCH (08:00)
[2022-09-04] MEDS: Benzonatate 100 MG CAP PO SCH ×3 (08:56→20:54)
[2022-09-04] MEDS: Carvedilol 6.25 MG TAB PO SCH ×2 (08:56→20:54)
[2022-09-04] MEDS: Pregabalin 25 MG CAP PO SCH ×2 (08:56→20:54)
[2022-09-04] MEDS: Nystatin 500,000 UNITS/5 ML UDCUP SSW SCH ×4 (08:57→20:59)
[2022-09-04] MEDS: Fluticasone Propionate Nasal Spray 16 gm Bottle NASAL SCH ×2 (08:57→20:56)
[2022-09-04] MEDS: Atorvastatin Calcium 10 MG TAB PO SCH (08:57)
[2022-09-04] MEDS: Fioricet 325/50/40 mg Tablet PO SCH (08:57)
[2022-09-04] MEDS: valACYclovir 500 MG TAB PO SCH ×2 (08:58→21:34)
[2022-09-04] MEDS: HumuLIN 70/30 100 Unit/ ml Vial SC SCH ×2 (09:01→21:01)
[2022-09-04] MEDS: Sodium Bicarbonate Tab 325 MG TAB PO SCH ×3 (11:20→20:52)
[2022-09-04] MEDS: Melatonin 3 MG TAB PO SCH (20:53)
[2022-09-04] MEDS ORDERED: Clotrimazole 2% 3 Day Vag Cr 22.2 GM TUBE VAG PRN (21:43)
[2022-09-05] MEDS: Ipratropium/Albuterol 3 ML NEB NEB SCH ×6 (01:58→21:57)
[2022-09-05] MEDS: HumaLOG 300 UNITS/3 ML VIAL SC PRN ×2 (03:49→17:41)
[2022-09-05 05:28] LABS: Hemoglobin 8.5 g/dL (12.0-16.0); Mean Corpuscular HGB CONC 32.4 g/dL (32.0-36.0); Mean Corpuscular Hemoglobin 29.4 pg (27.0-31.0); Mean Corpuscular Volume 90.7 fl (78.0-98.0); Mean Platelet Volume 13.4 fL (7.4-10.4); RBC Distribution Width 14.5 % (11.5-14.5); Red Blood Cell (RBC) Count 2.89 mill/uL (4.20-5.40); White Blood Cell (WBC) Count 3.3 10x3/uL (4.8-10.8)
[2022-09-05 05:33] LABS: Delete Auto Diff?? YES; Manual Diff?? YES; Platelet Count 54 10x3/uL (130-400)
[2022-09-05 05:54] LABS: Anion Gap 10 mmol/L (10-20); BUN (Urea Nitrogen) 40 mg/dL (7.0-18.7); Calc. Creatinine Clearance 76 mL/min (70-130); Calcium 8.8 mg/dL (7.8-10.44); Carbon Dioxide 23 mmol/L (22-29); Chloride 109 mmol/L (98-107); Estimated GFR 39; Glucose 355 mg/dL (70-105); Magnesium 1.9 mg/dL (1.6-2.6); Potassium 4.7 mmol/L (3.5-5.1); Sodium 137 mmol/L (136-145)
[2022-09-05 06:04] LABS: Band 2 % (5-11); CellaVision Operator ID lab.abc; Eosinophils 4 % (0-10); Lymphocytes 33 % (21-51); Monocytes 3 % (0-10); Myelocyte 2 % (0-0); Neutrophil 56 % (42-75); Nucleated RBC (Manual Ct) 3 % (0); Platelet Adequacy Comment Platelets Decreased; Polychromasia SLIGHT = 2-3 cells HPF (0-2); RBC Morphology Within Normal Limits; Total Cell Count 100
[2022-09-05] MEDS: Budesonide 0.5 MG/2 ML NEB NEB SCH ×2 (06:23→19:20)
[2022-09-05] MEDS: Arformoterol 15 MCG/2 ML NEB NEB SCH ×2 (06:27→19:20)
[2022-09-05] MEDS ORDERED: Magnesium 2 GM/50 ML(in water) 2 GM in Premix Bag 1 BAG IVPB SCH (08:00)
[2022-09-05] MEDS: Pregabalin 25 MG CAP PO SCH ×2 (08:20→20:25)
[2022-09-05] MEDS: Fioricet 325/50/40 mg Tablet PO SCH ×2 (08:21→09:18)
[2022-09-05] MEDS: Benzonatate 100 MG CAP PO SCH ×3 (08:21→20:25)
[2022-09-05] MEDS: Magnesium Oxide 400 MG TAB PO SCH ×2 (08:21→08:34)
[2022-09-05] MEDS: Carvedilol 6.25 MG TAB PO SCH ×2 (08:21→20:25)
[2022-09-05] MEDS: Sodium Bicarbonate Tab 325 MG TAB PO SCH ×3 (08:21→20:30)
[2022-09-05] MEDS: HumuLIN 70/30 100 Unit/ ml Vial SC SCH ×2 (08:22→20:28)
[2022-09-05] MEDS: Fluticasone Propionate Nasal Spray 16 gm Bottle NASAL SCH ×3 (08:22→20:26)
[2022-09-05] MEDS: Atorvastatin Calcium 10 MG TAB PO SCH (08:22)
[2022-09-05] MEDS: Nystatin 500,000 UNITS/5 ML UDCUP SSW SCH ×5 (08:22→20:24)
[2022-09-05] MEDS: valACYclovir 500 MG TAB PO SCH ×2 (08:22→20:25)
[2022-09-05] MEDS: Acetaminophen 650 MG/20.3 ML UDCUP PO PRN (08:47)
[2022-09-05] MEDS ORDERED: Glucagon 1 MG/ML KIT IM PRN (15:12)
[2022-09-05] MEDS ORDERED: Dextrose 5% in Water 1,000 ML IV PRN (15:12)
[2022-09-05] MEDS: methylPREDNISolone Sod Succ 40 MG VIAL IVP SCH (17:41)
[2022-09-05] MEDS: Clotrimazole 2% 3 Day Vag Cr 22.2 GM TUBE VAG SCH (20:41)
[2022-09-05] MEDS ORDERED: HumuLIN 70/30 100 Unit/ ml Vial SC SCH (21:00)
[2022-09-05] MEDS: Melatonin 3 MG TAB PO SCH (21:24)
[2022-09-06] MEDS: HumaLOG 300 UNITS/3 ML VIAL SC PRN ×6 (00:20→21:30)
[2022-09-06] MEDS: Ipratropium/Albuterol 3 ML NEB NEB SCH ×7 (02:40→21:50)
[2022-09-06 04:13] LABS: Hemoglobin 9.3 g/dL (12.0-16.0); Mean Corpuscular HGB CONC 33.3 g/dL (32.0-36.0); Mean Corpuscular Hemoglobin 29.7 pg (27.0-31.0); Mean Corpuscular Volume 89.1 fl (78.0-98.0); Mean Platelet Volume 13.1 fL (7.4-10.4); RBC Distribution Width 14.5 % (11.5-14.5); Red Blood Cell (RBC) Count 3.13 mill/uL (4.20-5.40); White Blood Cell (WBC) Count 4.2 10x3/uL (4.8-10.8)
[2022-09-06] MEDS: methylPREDNISolone Sod Succ 40 MG VIAL IVP SCH (04:28)
[2022-09-06 04:35] LABS: Anion Gap 14 mmol/L (10-20); BUN (Urea Nitrogen) 43 mg/dL (7.0-18.7); Calc. Creatinine Clearance 72 mL/min (70-130); Calcium 9.2 mg/dL (7.8-10.44); Carbon Dioxide 21 mmol/L (22-29); Chloride 104 mmol/L (98-107); Estimated GFR 36; Potassium 5.2 mmol/L (3.5-5.1); Sodium 134 mmol/L (136-145)
[2022-09-06 04:40] LABS: Glucose 447 mg/dL (70-105)
[2022-09-06 05:02] LABS: Manual Diff?? YES
[2022-09-06 05:03] LABS: Delete Auto Diff?? YES; Platelet Count 61 10x3/uL (130-400)
[2022-09-06 06:08] LABS: Anisocytosis SLIGHT = 6-15 cells HPF (0-5); Band 3 % (5-11); CellaVision Operator ID LAB.JMM; Elliptocytes SLIGHT = 2-5 cells HPF (0-1); Lymphocytes 13 % (21-51); Macrocytosis SLIGHT = 6-15 cells HPF (0-5); Metamyelocyte 1 % (0-0); Monocytes 3 % (0-10); Myelocyte 2 % (0-0); Neutrophil 78 % (42-75); Nucleated RBC (Manual Ct) 1 % (0); Platelet Adequacy Comment Platelets Decreased; Polychromasia SLIGHT = 2-3 cells HPF (0-2); Total Cell Count 101
[2022-09-06] MEDS: Sodium Bicarbonate Tab 325 MG TAB PO SCH ×2 (08:35→21:21)
[2022-09-06] MEDS: Magnesium Oxide 400 MG TAB PO SCH (08:36)
[2022-09-06] MEDS: Pregabalin 25 MG CAP PO SCH ×2 (08:36→21:23)
[2022-09-06] MEDS: valACYclovir 500 MG TAB PO SCH ×2 (08:36→21:21)
[2022-09-06] MEDS: Benzonatate 100 MG CAP PO SCH ×3 (08:36→21:43)
[2022-09-06] MEDS: Atorvastatin Calcium 10 MG TAB PO SCH (08:36)
[2022-09-06] MEDS: Fluticasone Propionate Nasal Spray 16 gm Bottle NASAL SCH ×2 (08:36→21:43)
[2022-09-06] MEDS: Carvedilol 6.25 MG TAB PO SCH ×2 (08:36→21:42)
[2022-09-06] MEDS: Nystatin 500,000 UNITS/5 ML UDCUP SSW SCH ×4 (08:37→21:44)
[2022-09-06] MEDS: Arformoterol 15 MCG/2 ML NEB NEB SCH ×2 (09:19→19:05)
[2022-09-06] MEDS: Budesonide 0.5 MG/2 ML NEB NEB SCH ×2 (09:19→19:06)
[2022-09-06] MEDS: HumuLIN 70/30 100 Unit/ ml Vial SC SCH ×2 (09:38→21:27)
[2022-09-06] MEDS: Acetaminophen 650 MG/20.3 ML UDCUP PO PRN (12:15)
[2022-09-06] MEDS ORDERED: Proctozone-HC 30 GM TUBE TOP SCH (14:00)
[2022-09-06] MEDS ORDERED: Gabapentin 300 MG CAP PO SCH (21:00)
[2022-09-06] MEDS: Lorazepam 0.5 MG TAB PO PRN (21:24)
[2022-09-06] MEDS: Clotrimazole 2% 3 Day Vag Cr 22.2 GM TUBE VAG SCH (21:43)
[2022-09-07] MEDS: Ipratropium/Albuterol 3 ML NEB NEB SCH ×6 (02:34→22:07)
[2022-09-07] MEDS: HumaLOG 300 UNITS/3 ML VIAL SC PRN ×3 (02:35→22:09)
[2022-09-07 05:49] LABS: #Monocytes 0.4 thou/uL (0.11-0.59); %Basophils 0.4 % (0.0-1.0); %Lymphocytes 23.4 % (21.0-51.0); %Monocytes 8.6 % (0.0-10.0); %Neutrophils 62.1 % (42.0-75.0); Hemoglobin 9.7 g/dL (12.0-16.0); Mean Corpuscular HGB CONC 32.7 g/dL (32.0-36.0); Mean Corpuscular Hemoglobin 29.8 pg (27.0-31.0); Mean Corpuscular Volume 91.1 fl (78.0-98.0); Mean Platelet Volume 11.4 fL (7.4-10.4); RBC Distribution Width 15.3 % (11.5-14.5); Red Blood Cell (RBC) Count 3.26 mill/uL (4.20-5.40); White Blood Cell (WBC) Count 4.9 10x3/uL (4.8-10.8)
[2022-09-07 05:52] LABS: Platelet Count 82 10x3/uL (130-400)
[2022-09-07 06:13] LABS: Anion Gap 12 mmol/L (10-20); BUN (Urea Nitrogen) 50 mg/dL (7.0-18.7); Calc. Creatinine Clearance 77 mL/min (70-130); Calcium 9.5 mg/dL (7.8-10.44); Carbon Dioxide 23 mmol/L (22-29); Chloride 106 mmol/L (98-107); Estimated GFR 40; Potassium 4.3 mmol/L (3.5-5.1); Sodium 137 mmol/L (136-145)
[2022-09-07 06:19] LABS: Glucose 405 mg/dL (70-105)
[2022-09-07] MEDS: Budesonide 0.5 MG/2 ML NEB NEB SCH ×2 (07:56→18:28)
[2022-09-07] MEDS: Arformoterol 15 MCG/2 ML NEB NEB SCH ×2 (07:56→18:27)
[2022-09-07] MEDS: Sodium Bicarbonate Tab 325 MG TAB PO SCH ×2 (09:01→22:07)
[2022-09-07] MEDS: Carvedilol 6.25 MG TAB PO SCH ×2 (09:02→21:51)
[2022-09-07] MEDS: Nystatin 500,000 UNITS/5 ML UDCUP SSW SCH ×4 (09:02→22:07)
[2022-09-07] MEDS: Proctozone-HC 30 GM TUBE TOP SCH (09:04)
[2022-09-07] MEDS: Magnesium Oxide 400 MG TAB PO SCH (09:04)
[2022-09-07] MEDS: Pregabalin 25 MG CAP PO SCH ×2 (09:04→21:52)
[2022-09-07] MEDS: valACYclovir 500 MG TAB PO SCH ×2 (09:05→21:51)
[2022-09-07] MEDS: Atorvastatin Calcium 10 MG TAB PO SCH (09:05)
[2022-09-07] MEDS: Benzonatate 100 MG CAP PO SCH ×3 (09:05→21:51)
[2022-09-07] MEDS: Fluticasone Propionate Nasal Spray 16 gm Bottle NASAL SCH ×2 (09:05→22:06)
[2022-09-07] MEDS: HumuLIN 70/30 100 Unit/ ml Vial SC SCH ×2 (09:09→21:55)
[2022-09-07] MEDS: HumaLOG 300 UNITS/3 ML VIAL SC SCH ×2 (12:52→18:03)
[2022-09-07] MEDS: Acetaminophen 650 MG/20.3 ML UDCUP PO PRN (15:36)
[2022-09-07] MEDS: guaiFENesin ER 600 MG TAB PO SCH (21:51)
[2022-09-07] MEDS: Clotrimazole 2% 3 Day Vag Cr 22.2 GM TUBE VAG SCH (22:06)
[2022-09-07] MEDS: Lorazepam 0.5 MG TAB PO PRN (22:19)
[2022-09-08] MEDS: Ipratropium/Albuterol 3 ML NEB NEB SCH ×5 (03:52→18:48)
[2022-09-08 05:05] LABS: Hemoglobin 9.4 g/dL (12.0-16.0); Mean Corpuscular HGB CONC 32.5 g/dL (32.0-36.0); Mean Corpuscular Hemoglobin 29.8 pg (27.0-31.0); Mean Corpuscular Volume 91.7 fl (78.0-98.0); Mean Platelet Volume 11.4 fL (7.4-10.4); RBC Distribution Width 15.6 % (11.5-14.5); Red Blood Cell (RBC) Count 3.15 mill/uL (4.20-5.40); White Blood Cell (WBC) Count 5.4 10x3/uL (4.8-10.8)
[2022-09-08 05:13] LABS: Delete Auto Diff?? YES; Manual Diff?? YES; Platelet Count 81 10x3/uL (130-400)
[2022-09-08 05:31] LABS: Anion Gap 10 mmol/L (10-20); BUN (Urea Nitrogen) 66 mg/dL (7.0-18.7); Calc. Creatinine Clearance 77 mL/min (70-130); Calcium 9.1 mg/dL (7.8-10.44); Carbon Dioxide 26 mmol/L (22-29); Chloride 109 mmol/L (98-107); Estimated GFR 38; Glucose 75 mg/dL (70-105); Potassium 4.2 mmol/L (3.5-5.1); Sodium 141 mmol/L (136-145)
[2022-09-08 05:34] LABS: Band 2 % (5-11); CellaVision Operator ID LAB.CLH1; Eosinophils 2 % (0-10); Hypochromia SLIGHT = 6-15 cells HPF (0-5); Lymphocytes 30 % (21-51); Metamyelocyte 2 % (0-0); Monocytes 2 % (0-10); Myelocyte 1 % (0-0); Neutrophil 61 % (42-75); Platelet Adequacy Comment Platelets Normal; Polychromasia SLIGHT = 2-3 cells HPF (0-2); Total Cell Count 100
[2022-09-08] MEDS: Budesonide 0.5 MG/2 ML NEB NEB SCH ×2 (06:27→18:48)
[2022-09-08] MEDS: Arformoterol 15 MCG/2 ML NEB NEB SCH ×2 (06:27→18:48)
[2022-09-08] MEDS: HumaLOG 300 UNITS/3 ML VIAL SC SCH ×3 (09:21→17:06)
[2022-09-08] MEDS: HumuLIN 70/30 100 Unit/ ml Vial SC SCH ×2 (09:22→21:29)
[2022-09-08] MEDS: guaiFENesin ER 600 MG TAB PO SCH ×2 (09:25→20:52)
[2022-09-08] MEDS: Atorvastatin Calcium 10 MG TAB PO SCH (09:25)
[2022-09-08] MEDS: Magnesium Oxide 400 MG TAB PO SCH (09:25)
[2022-09-08] MEDS: Pregabalin 25 MG CAP PO SCH ×2 (09:25→20:53)
[2022-09-08] MEDS: Carvedilol 6.25 MG TAB PO SCH ×2 (09:25→20:52)
[2022-09-08] MEDS: Sodium Bicarbonate Tab 325 MG TAB PO SCH ×2 (09:25→20:54)
[2022-09-08] MEDS: Benzonatate 100 MG CAP PO SCH ×3 (09:27→20:51)
[2022-09-08] MEDS: Proctozone-HC 30 GM TUBE TOP SCH (09:27)
[2022-09-08] MEDS: Fluticasone Propionate Nasal Spray 16 gm Bottle NASAL SCH ×2 (09:27→21:29)
[2022-09-08] MEDS: Nystatin 500,000 UNITS/5 ML UDCUP SSW SCH ×4 (09:27→21:30)
[2022-09-08] MEDS: valACYclovir 500 MG TAB PO SCH ×2 (09:28→20:55)
[2022-09-08] MEDS ORDERED: traZODone HCl 50 MG TAB PO PRN (14:39)
[2022-09-08] MEDS ORDERED: Lorazepam 0.5 MG TAB PO PRN ×2 (14:43→15:09)
[2022-09-09] MEDS: Ipratropium/Albuterol 3 ML NEB NEB SCH ×2 (01:03→06:25)
[2022-09-09] MEDS: Arformoterol 15 MCG/2 ML NEB NEB SCH (06:27)
[2022-09-09] MEDS: Budesonide 0.5 MG/2 ML NEB NEB SCH (06:27)
[2022-09-09 08:07] VITALS: BP 138/83; TEMP 97.5
[2022-09-09] MEDS: Carvedilol 6.25 MG TAB PO SCH (09:22)
[2022-09-09] MEDS: Magnesium Oxide 400 MG TAB PO SCH (09:22)
[2022-09-09] MEDS: Benzonatate 100 MG CAP PO SCH (09:22)
[2022-09-09] MEDS: Sodium Bicarbonate Tab 325 MG TAB PO SCH (09:22)
[2022-09-09] MEDS: guaiFENesin ER 600 MG TAB PO SCH (09:22)
[2022-09-09] MEDS: Pregabalin 25 MG CAP PO SCH (09:23)
[2022-09-09] MEDS: Atorvastatin Calcium 10 MG TAB PO SCH (09:23)
[2022-09-09] MEDS: valACYclovir 500 MG TAB PO SCH (09:25)
[2022-09-09] MEDS: HumuLIN 70/30 100 Unit/ ml Vial SC SCH (09:28)
[2022-09-09] MEDS: Proctozone-HC 30 GM TUBE TOP SCH (09:34)
[2022-09-09] MEDS: HumaLOG 300 UNITS/3 ML VIAL SC SCH (09:42)
[2022-09-09] MEDS: Nystatin 500,000 UNITS/5 ML UDCUP SSW SCH (09:43)
[2022-09-09] MEDS: Fluticasone Propionate Nasal Spray 16 gm Bottle NASAL SCH (09:43)
== END 2022-09-09 09:52 | disposition home or self-care (01) | DRG 177 ==
LOC: IMCU/EMU 08-30 14:46 → OBSVTOIN 08-30 16:16 → T4-B 09-01 20:36
PROVIDERS: ADMIT Internal Medicine; ATTEND Internal Medicine
DX: J69.0 Pneumonitis due to inhalation of food and vomit (principal); E11.00 Type 2 diabetes mellitus with hyperosmolarity without nonketotic hyperglycemic-hyperosmolar coma (NKHHC); D59.10 Autoimmune hemolytic anemia, unspecified; D61.818 Other pancytopenia; E87.0 Hyperosmolality and hypernatremia; E87.20 Acidosis, unspecified; N17.9 Acute kidney failure, unspecified; J45.901 Unspecified asthma with (acute) exacerbation; E11.65 Type 2 diabetes mellitus with hyperglycemia; E11.22 Type 2 diabetes mellitus with diabetic chronic kidney disease; E11.42 Type 2 diabetes mellitus with diabetic polyneuropathy; F79 Unspecified intellectual disabilities; E78.5 Hyperlipidemia, unspecified; E87.5 Hyperkalemia; I12.9 Hypertensive chronic kidney disease with stage 1 through stage 4 chronic kidney disease, or unspecified chronic kidney disease; N18.9 Chronic kidney disease, unspecified; D63.1 Anemia in chronic kidney disease; E83.42 Hypomagnesemia; K00.0 Anodontia; G47.00 Insomnia, unspecified; R29.898 Other symptoms and signs involving the musculoskeletal system; L29.8 Other pruritus; B36.9 Superficial mycosis, unspecified; Z88.1 Allergy status to other antibiotic agents; Z88.2 Allergy status to sulfonamides; Z88.8 Allergy status to other drugs, medicaments and biological substances; Z79.4 Long term (current) use of insulin; Z79.899 Other long term (current) drug therapy; Z98.890 Other specified postprocedural states
CPT/HCPCS: 36415; 36416; 71045; 71046; 78451; 80048; 80053; 80069; 83036; 83605; 83735; 83930; 84100; 84145; 85025; 87040; 87086; 93005; 93010; 93306; 93970; A9540; C9113; J0612; J1815; J2405; J2543; J2920; J3475; J3480; J3490; J7050; J7620; J7626

== ENCOUNTER 2022-11-09 10:46 | Emergency (ER) | payer OTHER ==
[2022-11-09] MEDS ORDERED: Acetaminophen 500 MG TAB ONE ×2 (12:29→12:41)
[2022-11-09] MEDS ORDERED: Acetaminophen 325 MG/10.15 ML UDCUP ONE (12:44)
[2022-11-09] MEDS ORDERED: Ketorolac Tromethamine 30 MG/ML VIAL ONE (13:06)
[2022-11-09 14:06] LABS: #Monocytes 0.3 thou/uL (0.11-0.59); %Basophils 0.2 % (0.0-1.0); %Monocytes 7.9 % (0.0-10.0); %Neutrophils 74.2 % (42.0-75.0); Hemoglobin 8.9 g/dL (12.0-16.0); Mean Corpuscular Hemoglobin 29.1 pg (27.0-31.0); Mean Corpuscular Volume 88.2 fl (78.0-98.0); Mean Platelet Volume 12.9 fL (7.4-10.4); RBC Distribution Width 14.4 % (11.5-14.5); Red Blood Cell (RBC) Count 3.06 mill/uL (4.20-5.40); White Blood Cell (WBC) Count 4.1 10x3/uL (4.8-10.8)
[2022-11-09 14:09] LABS: Platelet Count 53 10x3/uL (130-400)
[2022-11-09 14:17] LABS: BHCG - Serum Negative (NEGATIVE); Pregs Control Bar Appear? YES (CONTROL BAR)
[2022-11-09 14:18] LABS: Pregs Control Background? CLEAR/WHITE (CLR/WHITE)
[2022-11-09] MEDS ORDERED: Ondansetron PF 4 MG/2 ML Vial ONE ×2 (14:19)
[2022-11-09 14:22] LABS: ALT (SGPT) 16 U/L (8-55); AST (SGOT) 9 U/L (5-34); Albumin 3.7 g/dL (3.5-5.0); Alkaline Phosphatase 71 U/L (40-110); Anion Gap 11 mmol/L (10-20); BUN (Urea Nitrogen) 16 mg/dL (7.0-18.7); Bilirubin, Total 0.5 mg/dL (0.2-1.2); Calc. Creatinine Clearance 0 mL/min (70-130); Calcium 9.5 mg/dL (7.8-10.44); Carbon Dioxide 22 mmol/L (22-29); Chloride 104 mmol/L (98-107); Estimated GFR 38; Globulin 2.3 g/dL (2.4-3.5); Glucose 348 mg/dL (70-105); Lipase 27 U/L (8-78); Potassium 4.2 mmol/L (3.5-5.1); Sodium 133 mmol/L (136-145)
[2022-11-09] MEDS ORDERED: Insulin Regular 300 UNITS/3 ML VIAL ONE (15:23)
== END 2022-11-09 16:40 | disposition home or self-care (01) ==
LOC: ERS 10:46
DX: U07.1 COVID-19 (principal); H66.93 Otitis media, unspecified, bilateral; H73.91 Unspecified disorder of tympanic membrane, right ear; E11.65 Type 2 diabetes mellitus with hyperglycemia; I10 Essential (primary) hypertension; J44.9 Chronic obstructive pulmonary disease, unspecified; Z79.4 Long term (current) use of insulin; Z79.899 Other long term (current) drug therapy
CPT/HCPCS: 36416; 71045; 80053; 83690; 84703; 85025; 93005; 96361; 96374; 96375; J1815; J1885; J2405

== ENCOUNTER 2022-11-18 20:56 | Inpatient (IN) | payer OTHER ==
[2022-11-18] MEDS ORDERED: Ipratropium/Albuterol 3 ML NEB ONE (22:19)
[2022-11-18 23:02] LABS: Bilirubin Negative (Negative); Blood, Urine 3+ (Negative); CAUTI Indications for Culture Alt mental st,lethar; Clarity Clear (Clear); Glucose, Urine (Dipstick) Greater than 1000 mg/dL (Negative); Ketone, Urine Trace mg/dL (Negative); Leukocyte Negative Leu/uL (Negative); Nitrite Negative (Negative); Protein, Urine (Dipstick) 300 mg/dL (Neg-Trace); Specific Gravity, Urine 1.016 (1.002-1.036); Squamous Epithelial 0-3 HPF (0-3); Urobilinogen Normal mg/dL (Less than 2)
[2022-11-18 23:03] LABS: Bacteria/HPF 1+ HPF (None Seen)
[2022-11-18 23:05] LABS: Amphetamine Not Detected (NotDetected); Barbiturates Screen Not Detected (NotDetected); Benzodiazepine Screen Not Detected (NotDetected); Cocaine Metabolite Screen Not Detected (NotDetected); Methadone Not Detected (NotDetected); Methamphetamine Not Detected (NotDetected); Opiate Screen Not Detected (NotDetected); Oxycodone Screen Not Detected (NotDetected); Phencyclidine (PCP) Not Detected (NotDetected); THC/Cannabinoid Screen Not Detected (NotDetected); Tricyclic Screen Not Detected (NotDetected); Urine Culture Reflex No No
[2022-11-18 23:21] LABS: Hematocrit 24.5 % (36.0-47.0); Hemoglobin 7.9 g/dL (12.0-16.0); Mean Corpuscular HGB CONC 32.2 g/dL (32.0-36.0); Mean Corpuscular Hemoglobin 28.6 pg (27.0-31.0); Mean Corpuscular Volume 88.8 fl (78.0-98.0); Mean Platelet Volume 10.8 fL (7.4-10.4); Platelet Count 95 10x3/uL (130-400); RBC Distribution Width 13.7 % (11.5-14.5); Red Blood Cell (RBC) Count 2.76 mill/uL (4.20-5.40); White Blood Cell (WBC) Count 3.9 10x3/uL (4.8-10.8)
[2022-11-18 23:22] LABS: Delete Auto Diff?? YES; Manual Diff?? YES
[2022-11-18 23:27] LABS: BHCG - Serum Negative (NEGATIVE); Pregs Control Background? CLEAR/WHITE (CLR/WHITE); Pregs Control Bar Appear? YES (CONTROL BAR)
[2022-11-18 23:41] LABS: Acetaminophen Less than 10 mcg/mL (10.0-30.0); Alcohol Less than 10.0 mg/dL (Less than 10); Salicylate Less than 8.0 mg/dL (15.0-30.0)
[2022-11-18 23:42] LABS: ALT (SGPT) 11 U/L (8-55); AST (SGOT) 13 U/L (5-34); Alkaline Phosphatase 69 U/L (40-110); Anion Gap 18 mmol/L (10-20); BUN (Urea Nitrogen) 32 mg/dL (7.0-18.7); Bilirubin, Total 0.4 mg/dL (0.2-1.2); Calc. Creatinine Clearance 0 mL/min (70-130); Calcium 8.6 mg/dL (7.8-10.44); Carbon Dioxide 17 mmol/L (22-29); Chloride 105 mmol/L (98-107); Estimated GFR 22; Globulin 2.4 g/dL (2.4-3.5); Glucose 272 mg/dL (70-105); Potassium 5.4 mmol/L (3.5-5.1); Protein, Total 5.4 g/dL (6.0-8.3); Sodium 135 mmol/L (136-145)
[2022-11-18 23:55] LABS: Actual Bicarbonate (HCO3v) 17.5 mEq/L (22-28); Base Excess -7.8 mEq/L (-2.0 to +3.0); Calcium, Ionized (venous) 1.04 mmol/L (1.16-1.32); Chloride (VBG) 105 mmol/L (98-106); Hematocrit-VBG 26 % (36.0-47.0); Potassium (VBG) 5.26 mmol/L (3.70-5.30); Sodium 133.4 mmol/L (133-146); pH (venous) 7.319 (7.32-7.43)
[2022-11-18] MEDS ORDERED: Dexamethasone 10 MG/ML VIAL ONE (23:56)
[2022-11-19 00:14] LABS: Band 8 % (5-11); CellaVision Operator ID LAB.CLH1; Eosinophils 2 % (0-10); Hypochromia SLIGHT = 6-15 cells HPF (0-5); Lymphocytes 16 % (21-51); Macrocytosis SLIGHT = 6-15 cells HPF (0-5); Metamyelocyte 1 % (0-0); Monocytes 2 % (0-10); Myelocyte 1 % (0-0); Neutrophil 69 % (42-75); Platelet Adequacy Comment Platelets Decreased; Polychromasia SLIGHT = 2-3 cells HPF (0-2); Promyelocytes 1 % (0-0); Total Cell Count 100
[2022-11-19] MEDS ORDERED: Dextrose 5% in Water 1,000 ML IV PRN (01:46)
[2022-11-19] MEDS ORDERED: Dextrose 50% Abboject 50 ML SYRINGE SLOW IVP PRN (01:46)
[2022-11-19] MEDS ORDERED: Glucagon 1 MG/ML KIT IM PRN (01:46)
[2022-11-19] MEDS ORDERED: HumaLOG 300 UNITS/3 ML VIAL SC PRN ×2 (01:46)
[2022-11-19] MEDS ORDERED: Ipratropium/Albuterol 3 ML NEB NEB PRN ×2 (01:48→03:33)
[2022-11-19] MEDS ORDERED: Acetaminophen 325 MG TAB PO PRN (01:50)
[2022-11-19] MEDS ORDERED: Calcium Carbonate 500 MG ChewTAB PO PRN (01:50)
[2022-11-19] MEDS ORDERED: Ondansetron ODT 4 MG TAB PO PRN (01:50)
[2022-11-19] MEDS ORDERED: Guaifenesin DM 100-10/5 ML UDCUP PO PRN (03:34)
[2022-11-19 06:37] VITALS: BMI 34.4
[2022-11-19 07:22] LABS: Hematocrit 27.4 % (36.0-47.0); Hemoglobin 8.5 g/dL (12.0-16.0); Mean Corpuscular Hemoglobin 28.7 pg (27.0-31.0); Mean Platelet Volume 12.4 fL (7.4-10.4); RBC Distribution Width 13.6 % (11.5-14.5); Red Blood Cell (RBC) Count 2.96 mill/uL (4.20-5.40); White Blood Cell (WBC) Count 3.9 10x3/uL (4.8-10.8)
[2022-11-19] MEDS ORDERED: HumuLIN 70/30 100 Unit/ ml 10 ml Vial SC SCH (07:30)
[2022-11-19 07:33] LABS: Delete Auto Diff?? YES; Manual Diff?? YES; Mean Corpuscular Volume 92.6 fl (78.0-98.0); Platelet Count 88 10x3/uL (130-400)
[2022-11-19 07:42] LABS: Anion Gap 18 mmol/L (10-20); BUN (Urea Nitrogen) 37 mg/dL (7.0-18.7); Calc. Creatinine Clearance 43 mL/min (70-130); Calcium 8.7 mg/dL (7.8-10.44); Carbon Dioxide 15 mmol/L (22-29); Chloride 102 mmol/L (98-107); Estimated GFR 22; Sodium 128 mmol/L (136-145)
[2022-11-19 07:47] LABS: Glucose 613 mg/dL (70-105); Potassium 6.9 mmol/L (3.5-5.1)
[2022-11-19] MEDS: Ipratropium/Albuterol 3 ML NEB NEB SCH ×4 (07:49→23:42)
[2022-11-19] MEDS ORDERED: Sodium Chloride 0.9% 1,000 ML IV SCH (08:15)
[2022-11-19] MEDS ORDERED: HUMULIN R 100 UNITS in Sodium Chloride 0.9% 100 ML IVPB SCH (08:15)
[2022-11-19 08:25] LABS: Band 15 % (5-11); Burr Cells SLIGHT = 2-5 cells HPF (0-1); CellaVision Operator ID LAB.GE; Lymphocytes 5 % (21-51); Macrocytosis SLIGHT = 6-15 cells HPF (0-5); Metamyelocyte 1 % (0-0); Monocytes 1 % (0-10); Myelocyte 2 % (0-0); Neutrophil 77 % (42-75); Ovalocytes SLIGHT = 2-5 cells HPF (0-1); Platelet Adequacy Comment Platelets Decreased; Polychromasia MODERATE = 3-4 cells HPF (0-2); Total Cell Count 102
[2022-11-19] MEDS ORDERED: Sodium Bicarbonate 150 MEQ in Sterile Water 1,000 ML IV SCH (08:30)
[2022-11-19] MEDS: predniSONE 20 MG TAB PO SCH (09:21)
[2022-11-19] MEDS: Amlodipine 5 MG TAB PO SCH (09:21)
[2022-11-19] MEDS: Carvedilol 6.25 MG TAB PO SCH ×2 (09:22→20:24)
[2022-11-19] MEDS: Atorvastatin Calcium 10 MG TAB PO SCH (09:22)
[2022-11-19] MEDS: Insulin Regular 300 UNITS/3 ML VIAL IVP SCH ×2 (09:22→11:33)
[2022-11-19] MEDS: Sodium Bicarbonate Tab 325 MG TAB PO SCH ×3 (09:24→20:25)
[2022-11-19] MEDS: Sodium Chloride 0.9% 1,000 ML IV SCH ×2 (09:46→20:25)
[2022-11-19 11:31] LABS: Glucose 591 mg/dL (70-105)
[2022-11-19 16:51] LABS: Anion Gap 16 mmol/L (10-20); BUN (Urea Nitrogen) 43 mg/dL (7.0-18.7); Calc. Creatinine Clearance 51 mL/min (70-130); Calcium 8.5 mg/dL (7.8-10.44); Carbon Dioxide 21 mmol/L (22-29); Chloride 103 mmol/L (98-107); Estimated GFR 27; Glucose 305 mg/dL (70-105); Potassium 4.7 mmol/L (3.5-5.1); Sodium 135 mmol/L (136-145)
[2022-11-19] MEDS ORDERED: Insulin Regular 300 UNITS/3 ML VIAL SC PRN (18:00)
[2022-11-20] MEDS: hydrOXYzine 25 MG TAB PO PRN ×2 (00:16→20:01)
[2022-11-20] MEDS: Sodium Chloride 0.9% 1,000 ML IV SCH ×2 (03:31→14:54)
[2022-11-20 06:24] LABS: #Monocytes 0.3 thou/uL (0.11-0.59); #Neutrophils 2.4 thou/uL (1.40-6.50); %Basophils 0.3 % (0.0-1.0); %Lymphocytes 9.2 % (21.0-51.0); %Monocytes 8.6 % (0.0-10.0); %Neutrophils 77.5 % (42.0-75.0); Hematocrit 22.8 % (36.0-47.0); Hemoglobin 7.3 g/dL (12.0-16.0); Mean Corpuscular Hemoglobin 28.3 pg (27.0-31.0); Mean Platelet Volume 11.2 fL (7.4-10.4); RBC Distribution Width 13.3 % (11.5-14.5); Red Blood Cell (RBC) Count 2.58 mill/uL (4.20-5.40); White Blood Cell (WBC) Count 3.2 10x3/uL (4.8-10.8)
[2022-11-20 06:28] LABS: Mean Corpuscular Volume 88.4 fl (78.0-98.0); Platelet Count 85 10x3/uL (130-400)
[2022-11-20 06:49] LABS: Anion Gap 14 mmol/L (10-20); BUN (Urea Nitrogen) 46 mg/dL (7.0-18.7); Calc. Creatinine Clearance 62 mL/min (70-130); Calcium 8.5 mg/dL (7.8-10.44); Carbon Dioxide 23 mmol/L (22-29); Chloride 108 mmol/L (98-107); Estimated GFR 34; Glucose 106 mg/dL (70-105); Potassium 4.5 mmol/L (3.5-5.1); Sodium 140 mmol/L (136-145)
[2022-11-20 06:51] LABS: Magnesium 1.4 mg/dL (1.6-2.6); Phosphorus 2.5 mg/dL (2.3-4.7)
[2022-11-20] MEDS: Sodium Bicarbonate Tab 325 MG TAB PO SCH ×4 (08:20→21:59)
[2022-11-20] MEDS: predniSONE 20 MG TAB PO SCH (08:25)
[2022-11-20] MEDS: Amlodipine 5 MG TAB PO SCH (08:25)
[2022-11-20] MEDS: Atorvastatin Calcium 10 MG TAB PO SCH (08:25)
[2022-11-20] MEDS: Ipratropium/Albuterol 3 ML NEB NEB SCH ×4 (08:28→23:42)
[2022-11-20] MEDS: Carvedilol 6.25 MG TAB PO SCH ×2 (08:30→20:01)
[2022-11-20] MEDS ORDERED: Magnesium Sulfate In Water 4 GM in Premix Bag 1 BAG IVPB SCH (09:00)
[2022-11-20] MEDS: HumuLIN 70/30 (300 UNITS/3 ML VIAL) SC SCH ×2 (09:32→20:02)
[2022-11-20 11:08] LABS: Iron 62 ug/dL (50-170); Iron Binding Capacity, Total 116 mcg/dL (265-497)
[2022-11-20] MEDS: Insulin Regular 300 UNITS/3 ML VIAL SC PRN ×3 (11:35→20:27)
[2022-11-20] MEDS ORDERED: Lidocaine 4% Patch TD SCH (14:30)
[2022-11-20] MEDS: Lidocaine 4% Patch TD SCH (14:54)
[2022-11-20 16:59] LABS: Glucose 759 mg/dL (70-105)
[2022-11-20] MEDS ORDERED: HumuLIN 70/30 (300 UNITS/3 ML VIAL) SC SCH (17:15)
[2022-11-20 17:21] LABS: Chloride 101 mmol/L (98-107); Potassium 5.4 mmol/L (3.5-5.1); Sodium 128 mmol/L (136-145)
[2022-11-20 17:24] LABS: Anion Gap 12 mmol/L (10-20); Carbon Dioxide 20 mmol/L (22-29)
[2022-11-20 17:26] LABS: BUN (Urea Nitrogen) 50 mg/dL (7.0-18.7); Calc. Creatinine Clearance 54 mL/min (70-130); Estimated GFR 29
[2022-11-20] MEDS ORDERED: LevoFLOXacin 750 mg/D5W 750 MG in Premix Bag 1 BAG IVPB SCH (18:00)
[2022-11-20] MEDS ORDERED: Dextrose 50% Abboject 50 ML SYRINGE SLOW IVP SCH (18:45)
[2022-11-20] MEDS ORDERED: Insulin Regular 300 UNITS/3 ML VIAL IVP SCH (18:45)
[2022-11-20] MEDS ORDERED: Insulin Regular 300 UNITS/3 ML VIAL SC PRN (22:58)
[2022-11-20 22:59] LABS: Anion Gap 13 mmol/L (10-20); BUN (Urea Nitrogen) 51 mg/dL (7.0-18.7); Calc. Creatinine Clearance 53 mL/min (70-130); Carbon Dioxide 20 mmol/L (22-29); Chloride 101 mmol/L (98-107); Estimated GFR 28; Potassium 4.4 mmol/L (3.5-5.1); Sodium 130 mmol/L (136-145)
[2022-11-20 23:05] LABS: Glucose 625 mg/dL (70-105)
[2022-11-20] MEDS: HumaLOG 300 UNITS/3 ML VIAL SC PRN (23:20)
[2022-11-21] MEDS: HumaLOG 300 UNITS/3 ML VIAL SC PRN ×3 (00:37→17:44)
[2022-11-21] MEDS ORDERED: Transdermal Patch Removal TOP SCH (03:00)
[2022-11-21] MEDS: Sodium Chloride 0.9% 1,000 ML IV SCH (05:23)
[2022-11-21] MEDS: Ipratropium/Albuterol 3 ML NEB NEB SCH ×4 (07:12→23:23)
[2022-11-21] MEDS: predniSONE 20 MG TAB PO SCH (07:57)
[2022-11-21] MEDS: Carvedilol 6.25 MG TAB PO SCH ×2 (07:57→22:59)
[2022-11-21] MEDS: Atorvastatin Calcium 10 MG TAB PO SCH (07:58)
[2022-11-21] MEDS: Amlodipine 5 MG TAB PO SCH (07:58)
[2022-11-21] MEDS: Sodium Bicarbonate Tab 325 MG TAB PO SCH ×3 (07:58→22:59)
[2022-11-21 09:00] LABS: Hemoglobin 6.7 g/dL (12.0-16.0); Mean Corpuscular HGB CONC 30.5 g/dL (32.0-36.0); Mean Corpuscular Hemoglobin 27.8 pg (27.0-31.0); Mean Corpuscular Volume 91.3 fl (78.0-98.0); Mean Platelet Volume 11.1 fL (7.4-10.4); RBC Distribution Width 13.4 % (11.5-14.5); Red Blood Cell (RBC) Count 2.41 mill/uL (4.20-5.40); White Blood Cell (WBC) Count 3.1 10x3/uL (4.8-10.8)
[2022-11-21 09:09] LABS: Anion Gap 11 mmol/L (10-20); BUN (Urea Nitrogen) 40 mg/dL (7.0-18.7); Calc. Creatinine Clearance 85 mL/min (70-130); Carbon Dioxide 19 mmol/L (22-29); Chloride 114 mmol/L (98-107); Estimated GFR 49; Glucose 80 mg/dL (70-105); Magnesium 1.6 mg/dL (1.6-2.6); Potassium 2.7 mmol/L (3.5-5.1); Sodium 141 mmol/L (136-145)
[2022-11-21 09:12] LABS: Delete Auto Diff?? YES; Manual Diff?? YES; Platelet Count 89 10x3/uL (130-400)
[2022-11-21 09:33] LABS: Phosphorus 1.9 mg/dL (2.3-4.7)
[2022-11-21 09:34] LABS: Calcium 6.9 mg/dL (7.8-10.44)
[2022-11-21 10:40] LABS: Burr Cells SLIGHT = 2-5 cells (100X) (0-1/hpf)
[2022-11-21] MEDS ORDERED: Potassium Phosphate 30 MMOL in Sodium Chloride 0.9% 250 ML 250 ML IVPB SCH (11:00)
[2022-11-21] MEDS ORDERED: Calcium Gluconate 4.6 MEQ in Sodium Chloride 0.9% 100 ML IVPB ONE (11:15)
[2022-11-21] MEDS: Potassium Chloride 20 MEQ TAB PO SCH ×2 (11:34→12:56)
[2022-11-21] MEDS: HumuLIN 70/30 (300 UNITS/3 ML VIAL) SC SCH ×2 (11:36→23:01)
[2022-11-21] MEDS ORDERED: Magnesium Sulfate In Water 4 GM in Premix Bag 1 BAG IVPB SCH (12:00)
[2022-11-21] MEDS ORDERED: CALCIUM GLUC 1 GM/NS 50 ML 1 GM in Premix Bag 1 BAG IVPB SCH (12:15)
[2022-11-21 12:25] LABS: Band 5 % (5-11); CellaVision Operator ID LAB.GE; Hypochromia SLIGHT = 6-15 cells HPF (0-5); Lymphocytes 13 % (21-51); Metamyelocyte 5 % (0-0); Monocytes 2 % (0-10); Myelocyte 4 % (0-0); Neutrophil 70 % (42-75); Nucleated RBC (Manual Ct) 2 % (0); Ovalocytes SLIGHT = 2-5 cells HPF (0-1); Platelet Adequacy Comment Platelets Decreased; Polychromasia SLIGHT = 2-3 cells HPF (0-2); Reactive Lymphocytes 1 % (0-10); Total Cell Count 102
[2022-11-21] MEDS: Lactated Ringer's 1,000 ML IV SCH ×2 (12:31→22:59)
[2022-11-21] MEDS ORDERED: Potassium Bicarbonate/Cit Ac 20 MEQ TAB PO SCH (13:00)
[2022-11-21] MEDS: Lidocaine 4% Patch TD SCH ×2 (15:27→15:47)
[2022-11-21 16:31] LABS: Albumin 2.9 g/dL (3.5-5.0); Anion Gap 12 mmol/L (10-20); BUN (Urea Nitrogen) 47 mg/dL (7.0-18.7); BUN/Creatinine Ratio 25.13; Calc. Creatinine Clearance 65 mL/min (70-130); Calcium 8.6 mg/dL (7.8-10.44); Carbon Dioxide 23 mmol/L (22-29); Chloride 108 mmol/L (98-107); Estimated GFR 36; Glucose 317 mg/dL (70-105); Phosphorus 2.7 mg/dL (2.3-4.7); Sodium 139 mmol/L (136-145)
[2022-11-21] MEDS ORDERED: LevoFLOXacin 750 mg/D5W 750 MG in Premix Bag 1 BAG IVPB SCH (18:00)
[2022-11-21] MEDS ORDERED: Lidocaine 4% Patch TD SCH (21:00)
[2022-11-21 21:58] LABS: Glucose 544 mg/dL (70-105)
[2022-11-22] MEDS: HumaLOG 300 UNITS/3 ML VIAL SC PRN ×3 (01:40→11:55)
[2022-11-22] MEDS ORDERED: Ipratropium/Albuterol 3 ML NEB ONE (03:19)
[2022-11-22] MEDS: Lactated Ringer's 1,000 ML IV SCH (05:53)
[2022-11-22] MEDS: Ipratropium/Albuterol 3 ML NEB NEB SCH ×2 (06:33→06:35)
[2022-11-22 06:45] LABS: Hematocrit 22.4 % (36.0-47.0); Hemoglobin 7.1 g/dL (12.0-16.0); Mean Corpuscular HGB CONC 31.7 g/dL (32.0-36.0); Mean Corpuscular Hemoglobin 28.1 pg (27.0-31.0); Mean Platelet Volume 10.6 fL (7.4-10.4); RBC Distribution Width 13.2 % (11.5-14.5); Red Blood Cell (RBC) Count 2.53 mill/uL (4.20-5.40); White Blood Cell (WBC) Count 2.7 10x3/uL (4.8-10.8)
[2022-11-22 07:01] LABS: Anion Gap 17 mmol/L (10-20); BUN (Urea Nitrogen) 43 mg/dL (7.0-18.7); Calc. Creatinine Clearance 68 mL/min (70-130); Calcium 8.4 mg/dL (7.8-10.44); Carbon Dioxide 20 mmol/L (22-29); Chloride 107 mmol/L (98-107); Estimated GFR 38; Glucose 193 mg/dL (70-105); Sodium 140 mmol/L (136-145)
[2022-11-22 07:06] LABS: Delete Auto Diff?? YES; Manual Diff?? YES; Mean Corpuscular Volume 88.5 fl (78.0-98.0); Platelet Count 82 10x3/uL (130-400)
[2022-11-22] MEDS: Sodium Bicarbonate Tab 325 MG TAB PO SCH (08:15)
[2022-11-22] MEDS: Carvedilol 6.25 MG TAB PO SCH (08:16)
[2022-11-22] MEDS: Amlodipine 5 MG TAB PO SCH (08:16)
[2022-11-22] MEDS: predniSONE 20 MG TAB PO SCH (08:16)
[2022-11-22] MEDS: Atorvastatin Calcium 10 MG TAB PO SCH (08:16)
[2022-11-22] MEDS: HumuLIN 70/30 (300 UNITS/3 ML VIAL) SC SCH (08:19)
[2022-11-22 08:34] LABS: Band 7 % (5-11); CellaVision Operator ID LAB.GE; Lymphocytes 18 % (21-51); Metamyelocyte 5 % (0-0); Monocytes 1 % (0-10); Myelocyte 5 % (0-0); Neutrophil 64 % (42-75); Nucleated RBC (Manual Ct) 2 % (0); Platelet Adequacy Comment Platelets Decreased; Polychromasia SLIGHT = 2-3 cells HPF (0-2); Total Cell Count 101
[2022-11-22] MEDS ORDERED: Ergocalciferol 1.25 MG(50,000 UNITS) CAP PO SCH (09:00)
[2022-11-22] MEDS ORDERED: Transdermal Patch Removal TOP SCH (09:00)
[2022-11-22 10:57] VITALS: BP 156/86; TEMP 97.8
== END 2022-11-22 12:26 | disposition home or self-care (01) | DRG 682 ==
LOC: ERS 20:56 → ERHOLD 11-19 00:24 → IMCU/EMU 11-19 03:11 → T4-A 11-21 03:06
PROVIDERS: ADMIT Student in an Organized Health Care Education/Training Program; ATTEND Internal Medicine
PROC: 30233N1 Transfusion of Nonautologous Red Blood Cells into Peripheral Vein, Percutaneous Approach (ICD-10-PCS; principal; 2022-11-22)
DX: N17.9 Acute kidney failure, unspecified (principal); E10.10 Type 1 diabetes mellitus with ketoacidosis without coma; J18.9 Pneumonia, unspecified organism; E87.1 Hypo-osmolality and hyponatremia; J45.901 Unspecified asthma with (acute) exacerbation; E87.5 Hyperkalemia; E78.5 Hyperlipidemia, unspecified; J45.909 Unspecified asthma, uncomplicated; D63.1 Anemia in chronic kidney disease; I12.9 Hypertensive chronic kidney disease with stage 1 through stage 4 chronic kidney disease, or unspecified chronic kidney disease; E10.22 Type 1 diabetes mellitus with diabetic chronic kidney disease; N18.30 Chronic kidney disease, stage 3 unspecified; E10.65 Type 1 diabetes mellitus with hyperglycemia; E83.42 Hypomagnesemia; E86.9 Volume depletion, unspecified; E83.39 Other disorders of phosphorus metabolism; E86.0 Dehydration; Z88.8 Allergy status to other drugs, medicaments and biological substances; Z79.4 Long term (current) use of insulin; Z79.899 Other long term (current) drug therapy; Z79.51 Long term (current) use of inhaled steroids; Z88.2 Allergy status to sulfonamides; Z88.1 Allergy status to other antibiotic agents; E87.6 Hypokalemia
CPT/HCPCS: 36415; 36416; 36430; 80048; 80306; 80307; 81001; 82010; 82306; 82728; 82805; 83540; 83550; 83605; 83735; 84100; 84145; 84703; 85025; 86850; 86900; 86901; 86922; 93005; 94640; 96361; 96374; A4217; J0613; J1100; J1815; J1956; J3475; J3490; J7050; J7120; J7512; J7611; J7620; P9016; Q0162

== ENCOUNTER 2023-04-20 07:36 | Inpatient (IN) | payer OTHER ==
[2023-04-20] MEDS ORDERED: HumuLIN 70/30 100 Unit/ml 10 ml Vial SC SCH (09:00)
[2023-04-20] MEDS ORDERED: Dextrose 5% in Water 1,000 ML IV PRN (10:17)
[2023-04-20] MEDS ORDERED: Dextrose 50% Abboject 50 ML SYRINGE SLOW IVP PRN (10:17)
[2023-04-20] MEDS ORDERED: Non-Formulary Item 1 EACH (Insulin Aspart Prot/Insuln Asp [Novolog Mix 70-30 Flexpen] 100 SQ SCH (10:28)
[2023-04-20] MEDS: Ipratropium/Albuterol 3 ML NEB NEB SCH (10:41)
[2023-04-20] MEDS: Insulin Glargine 30 UNITS/0.3 ML VIAL SC SCH ×2 (12:18→21:41)
[2023-04-20] MEDS: HumaLOG 300 UNITS/3 ML VIAL SC PRN (12:18)
[2023-04-20] MEDS: Heparin 5,000 UNITS/ML VIAL SC SCH (15:45)
[2023-04-20 17:05] LABS: Anion Gap 11 mmol/L (10-20); BUN (Urea Nitrogen) 32 mg/dL (7.0-18.7); Calc. Creatinine Clearance 50 mL/min (70-130); Carbon Dioxide 19 mmol/L (22-29); Chloride 108 mmol/L (98-107); Estimated GFR 28; Potassium 4.3 mmol/L (3.5-5.1); Sodium 134 mmol/L (136-145)
[2023-04-20 17:06] LABS: Calcium 7.8 mg/dL (7.6-10.4); Glucose 259 mg/dL (70-105)
[2023-04-20] MEDS ORDERED: Non-Formulary Item 1 EACH (Carvedilol [Coreg] 12.5 MG Tablet) PO SCH (21:00)
[2023-04-20] MEDS: Carvedilol 6.25 MG TAB PO SCH (21:40)
[2023-04-20] MEDS: Gabapentin 300 MG CAP PO SCH (21:41)
[2023-04-20] MEDS: Oseltamivir 75 MG CAP PO SCH (21:42)
[2023-04-20] MEDS: Acetaminophen 325 MG TAB PO PRN (21:42)
[2023-04-21 01:17] LABS: Campy jejuni + coli by PCR Negative (Negative); STEC Shiga Toxin 1+2 Negative (Negative); Salmonella spp. by PCR Negative (Negative); Shigella spp + EIEC by PCR Negative (Negative)
[2023-04-21] MEDS ORDERED: Amlodipine 10 MG TAB PO SCH (09:00)
[2023-04-21] MEDS: Amlodipine 5 MG TAB PO SCH (09:40)
[2023-04-21] MEDS: Atorvastatin Calcium 10 MG TAB PO SCH (09:40)
[2023-04-21] MEDS: methylPREDNISolone Sod Succ/PF 125 MG/2 ML VIAL IVP SCH (09:42)
[2023-04-21] MEDS: Budesonide 0.5 MG/2 ML NEB INH SCH ×2 (10:14→18:24)
[2023-04-21 21:08] LABS: Hematocrit 28.1 % (36.0-47.0); Hemoglobin 8.8 g/dL (12.0-16.0); Manual Diff?? YES; Mean Corpuscular HGB CONC 31.3 g/dL (32.0-36.0); Mean Corpuscular Hemoglobin 29.1 pg (27.0-31.0); Mean Platelet Volume 13.2 fL (7.4-10.4); RBC Distribution Width 14.1 % (11.5-14.5); Red Blood Cell (RBC) Count 3.02 mill/uL (4.20-5.40); White Blood Cell (WBC) Count 1.3 10x3/uL (4.8-10.8)
[2023-04-21 21:19] LABS: Anion Gap 14 mmol/L (10-20); BUN (Urea Nitrogen) 35 mg/dL (7.0-18.7); Calc. Creatinine Clearance 45 mL/min (70-130); Calcium 8.3 mg/dL (7.8-10.44); Carbon Dioxide 16 mmol/L (22-29); Chloride 104 mmol/L (98-107); Estimated GFR 24; Potassium 4.9 mmol/L (3.5-5.1); Sodium 129 mmol/L (136-145)
[2023-04-21 21:23] LABS: Critical Call Chemistry IMAG.CMS@2123; Glucose 686 mg/dL (70-105)
[2023-04-21 21:46] LABS: Delete Auto Diff?? YES; Platelet Count 35 10x3/uL (130-400)
[2023-04-21] MEDS: Insulin Regular 300 UNITS/3 ML VIAL IVP SCH (22:13)
[2023-04-21] MEDS: Sodium Chloride 0.9% 1,000 ML IV SCH (22:15)
[2023-04-21 22:20] LABS: CellaVision Operator ID lab.sh2; Large Platelets 11.8 % (0-5); Lymphocytes 13 % (21-51); Macrocytosis SLIGHT = 6-15 cells HPF (0-5); Neutrophil 87 % (42-75); Ovalocytes SLIGHT = 2-5 cells HPF (0-1); Platelet Adequacy Comment Significant decrease; Polychromasia SLIGHT = 2-3 cells HPF (0-2); Smudge Cells 14.1 %; Tear Drops SLIGHT = 2-5 cells HPF (0-1); Total Cell Count 85
[2023-04-21 22:29] LABS: Lactic Acid 3.1 mmol/L (0.5-2.2)
[2023-04-21 23:23] LABS: Base Excess -10.1 mEq/L (-2.0 to +3.0); Calcium, Ionized (venous) 0.92 mmol/L (1.16-1.32); Chloride (VBG) 105 mmol/L (98-106); Hematocrit-VBG 25 % (36.0-47.0); Hemoglobin (Hb) 8.6 g/dL (11.7-15.5); Potassium (VBG) 5.45 mmol/L (3.70-5.30); Sodium 127 mmol/L (133-146); pH (venous) 7.383 (7.32-7.43)
[2023-04-21 23:26] LABS: Actual Bicarbonate (HCO3v) 13.6 mEq/L (22-28)
[2023-04-21] MEDS: Sodium Chloride 0.9% 500 ML IV SCH (23:30)
[2023-04-21] MEDS: HumaLOG 300 UNITS/3 ML VIAL SC PRN (23:34)
[2023-04-21 23:43] LABS: Bacteria/HPF None Seen HPF (None Seen); Bilirubin Negative (Negative); Blood, Urine 1+ (Negative); CAUTI Indications for Culture Dysuria,urgency,freq; Clarity Clear (Clear); Glucose, Urine (Dipstick) Greater than 1000 mg/dL (Negative); Ketone, Urine Negative (Negative); Leukocyte Negative Leu/uL (Negative); Nitrite Negative (Negative); Protein, Urine (Dipstick) 70 mg/dL (Neg-Trace); RBC/HPF 0-3 HPF (0-3); Specific Gravity, Urine 1.009 (1.002-1.036); Squamous Epithelial 0-3 HPF (0-3); Urobilinogen Normal mg/dL (Less than 2); WBC/HPF 0-3 HPF (0-3); pH, Urine 5.5 (5.0-9.0)
[2023-04-21 23:47] LABS: Urine Culture Reflex No No
[2023-04-21] MEDS ORDERED: methylPREDNISolone Sod Succ 40 MG VIAL IVP SCH (23:59)
[2023-04-22] MEDS: HUMULIN R 100 UNITS in Sodium Chloride 0.9% 100 ML IVPB SCH (01:05)
[2023-04-22] MEDS: Sodium Chloride 0.9% 1,000 ML IV SCH (01:57)
[2023-04-22 03:51] LABS: Hematocrit 24.6 % (36.0-47.0); Hemoglobin 7.8 g/dL (12.0-16.0); Manual Diff?? YES; Mean Corpuscular HGB CONC 31.7 g/dL (32.0-36.0); Mean Corpuscular Hemoglobin 28.6 pg (27.0-31.0); Mean Platelet Volume 13.6 fL (7.4-10.4); RBC Distribution Width 13.8 % (11.5-14.5); Red Blood Cell (RBC) Count 2.73 mill/uL (4.20-5.40)
[2023-04-22 03:53] LABS: Platelet Count 36 10x3/uL (130-400)
[2023-04-22 03:54] LABS: Mean Corpuscular Volume 90.1 fl (78.0-98.0)
[2023-04-22 04:03] LABS: Lactic Acid 2.6 mmol/L (0.5-2.2)
[2023-04-22 04:05] LABS: Delete Auto Diff?? YES; Magnesium 1.5 mg/dL (1.6-2.6)
[2023-04-22 04:07] LABS: ALT (SGPT) 9 U/L (8-55); AST (SGOT) 9 U/L (5-34); Albumin 3.3 g/dL (3.5-5.0); Alkaline Phosphatase 51 U/L (40-110); Anion Gap 13 mmol/L (10-20); BUN (Urea Nitrogen) 34 mg/dL (7.0-18.7); Bilirubin, Total 0.3 mg/dL (0.2-1.2); Calc. Creatinine Clearance 52 mL/min (70-130); Calcium 8.2 mg/dL (7.8-10.44); Carbon Dioxide 16 mmol/L (22-29); Chloride 110 mmol/L (98-107); Estimated GFR 29; Glucose 316 mg/dL (70-105); Phosphorus 2.5 mg/dL (2.3-4.7); Potassium 4.9 mmol/L (3.5-5.1); Protein, Total 5.3 g/dL (6.0-8.3); Sodium 134 mmol/L (136-145)
[2023-04-22] MEDS: Magnesium 2 GM/50 ML(in water) 2 GM in Premix 1 BAG IVPB SCH (04:41)
[2023-04-22 05:10] LABS: CellaVision Operator ID lab.sh2; Hypochromia SLIGHT = 6-15 cells HPF (0-5); Large Platelets 10.7 % (0-5); Lymphocytes 11 % (21-51); Neutrophil 89 % (42-75); Ovalocytes SLIGHT = 2-5 cells HPF (0-1); Platelet Adequacy Comment Significant decrease; Poikilocytosis SLIGHT = 6-15 cells HPF (0-5); Polychromasia SLIGHT = 2-3 cells HPF (0-2); Smudge Cells 3.6 %; Tear Drops SLIGHT = 2-5 cells HPF (0-1); Total Cell Count 28
[2023-04-22] MEDS: Oseltamivir 6 MG/ML ORAL SUSP PO SCH (08:03)
[2023-04-22] MEDS: methylPREDNISolone Sod Succ 40 MG VIAL IVP SCH (08:04)
[2023-04-22] MEDS ORDERED: methylPREDNISolone Sod Succ 40 MG VIAL IVP SCH (09:00)
[2023-04-22 09:37] LABS: Anion Gap 11 mmol/L (10-20); BUN (Urea Nitrogen) 34 mg/dL (7.0-18.7); Calc. Creatinine Clearance 58 mL/min (70-130); Calcium 8.2 mg/dL (7.8-10.44); Carbon Dioxide 17 mmol/L (22-29); Chloride 110 mmol/L (98-107); Estimated GFR 33; Glucose 246 mg/dL (70-105); Potassium 5.4 mmol/L (3.5-5.1); Sodium 133 mmol/L (136-145)
[2023-04-22 13:05] LABS: Lactic Acid 2.2 mmol/L (0.5-2.2)
[2023-04-22 13:14] LABS: Anion Gap 14 mmol/L (10-20); BUN (Urea Nitrogen) 36 mg/dL (7.0-18.7); Calc. Creatinine Clearance 53 mL/min (70-130); Carbon Dioxide 15 mmol/L (22-29); Chloride 109 mmol/L (98-107); Estimated GFR 30; Potassium 5.8 mmol/L (3.5-5.1); Sodium 132 mmol/L (136-145)
[2023-04-22 13:19] LABS: Critical Call Chemistry PHA.AAO1318; Glucose 503 mg/dL (70-105)
[2023-04-22] MEDS: HumaLOG 300 UNITS/3 ML VIAL SC PRN ×2 (13:20→21:47)
[2023-04-22 18:45] LABS: Phosphorus 2.8 mg/dL (2.3-4.7)
[2023-04-22 18:46] LABS: Anion Gap 14 mmol/L (10-20); BUN (Urea Nitrogen) 36 mg/dL (7.0-18.7); Calc. Creatinine Clearance 47 mL/min (70-130); Calcium 8.3 mg/dL (7.8-10.44); Carbon Dioxide 15 mmol/L (22-29); Chloride 108 mmol/L (98-107); Estimated GFR 25; Potassium 5.2 mmol/L (3.5-5.1); Sodium 132 mmol/L (136-145)
[2023-04-22 18:53] LABS: Critical Call Chemistry 3SE.SS@1853; Glucose 498 mg/dL (70-105)
[2023-04-22] MEDS: Sodium Chloride 0.9% 500 ML IV SCH (20:47)
[2023-04-23] MEDS ORDERED: Loratadine 10 MG TAB PO PRN (03:35)
[2023-04-23] MEDS ORDERED: GUAIFENESIN SF SOLN 200 MG/10 ML UDCUP PO PRN (03:35)
[2023-04-23] MEDS: Benzonatate 100 MG CAP PO PRN (03:45)
[2023-04-23] MEDS: Ondansetron ODT 4 MG TAB PO PRN (03:45)
[2023-04-23] MEDS: Sodium Chloride 0.9% 500 ML IV SCH (03:45)
[2023-04-23 04:52] LABS: Hematocrit 23.6 % (36.0-47.0); Hemoglobin 7.6 g/dL (12.0-16.0); Manual Diff?? YES; Mean Corpuscular HGB CONC 32.2 g/dL (32.0-36.0); Mean Corpuscular Hemoglobin 28.8 pg (27.0-31.0); Mean Corpuscular Volume 89.4 fl (78.0-98.0); Mean Platelet Volume 13.4 fL (7.4-10.4); RBC Distribution Width 13.7 % (11.5-14.5); Red Blood Cell (RBC) Count 2.64 mill/uL (4.20-5.40); White Blood Cell (WBC) Count 1.3 10x3/uL (4.8-10.8)
[2023-04-23 04:56] LABS: Delete Auto Diff?? YES; Platelet Count 42 10x3/uL (130-400)
[2023-04-23 05:08] LABS: Magnesium 1.9 mg/dL (1.6-2.6)
[2023-04-23 05:44] LABS: CellaVision Operator ID LAB.CLH1; Hypochromia SLIGHT = 6-15 cells HPF (0-5); Metamyelocyte 5 % (0-0); Monocytes 5 % (0-10); Platelet Adequacy Comment Platelets Decreased; Polychromasia SLIGHT = 2-3 cells HPF (0-2)
[2023-04-23 06:02] LABS: Band 17 % (5-11); Elliptocytes SLIGHT = 2-5 cells HPF (0-1); Large Platelets 11.1 % (0-5); Lymphocytes 11 % (21-51); Neutrophil 72 % (42-75); Nucleated RBC (Manual Ct) 6 % (0); Total Cell Count 18
[2023-04-23 06:40] LABS: Anion Gap 12 mmol/L (10-20); BUN (Urea Nitrogen) 41 mg/dL (7.0-18.7); Calc. Creatinine Clearance 53 mL/min (70-130); Calcium 8.1 mg/dL (7.8-10.44); Carbon Dioxide 17 mmol/L (22-29); Chloride 111 mmol/L (98-107); Estimated GFR 30; Potassium 5.5 mmol/L (3.5-5.1); Sodium 134 mmol/L (136-145)
[2023-04-23 06:43] LABS: Critical Call Chemistry NUR.BS10 @0642; Glucose 438 mg/dL (70-105)
[2023-04-23] MEDS: Insulin NPH Human Isophane 100 UNITS/ML (10 ML VIAL) SC SCH (11:59)
[2023-04-23] MEDS: Sodium Polystyrene Sulfonate 15 GM (60 mL) BOT PO SCH (11:59)
[2023-04-23] MEDS ORDERED: BENZOCAINE/MENTHOL/ZINC CHLOR 5.1 GM TUBE TOP PRN (13:02)
[2023-04-23 15:19] LABS: Potassium 5.1 mmol/L (3.5-5.1)
[2023-04-23] MEDS: FLU VACC QS2023-24(6MOS UP)/PF 60 MCG/0.5 ML SYRINGE IM ONE (16:29)
[2023-04-23] MEDS: Ipratropium/Albuterol 3 ML NEB NEB SCH (18:55)
[2023-04-23] MEDS: HumaLOG 300 UNITS/3 ML VIAL SC PRN (21:35)
[2023-04-24 06:58] LABS: Hemoglobin 8.3 g/dL (12.0-16.0); Red Blood Cell (RBC) Count 2.81 mill/uL (4.20-5.40); White Blood Cell (WBC) Count 1.7 10x3/uL (4.8-10.8)
[2023-04-24 06:59] LABS: Manual Diff?? YES; Mean Corpuscular HGB CONC 33.2 g/dL (32.0-36.0); Mean Corpuscular Hemoglobin 29.5 pg (27.0-31.0); Mean Platelet Volume 11.4 fL (7.4-10.4); RBC Distribution Width 13.9 % (11.5-14.5)
[2023-04-24 07:00] LABS: Platelet Count 60 10x3/uL (130-400)
[2023-04-24 07:03] LABS: Delete Auto Diff?? YES
[2023-04-24 07:26] LABS: Anion Gap 12 mmol/L (10-20); BUN (Urea Nitrogen) 52 mg/dL (7.0-18.7); Calc. Creatinine Clearance 55 mL/min (70-130); Calcium 8.3 mg/dL (7.8-10.44); Carbon Dioxide 18 mmol/L (22-29); Chloride 108 mmol/L (98-107); Estimated GFR 31; Sodium 133 mmol/L (136-145)
[2023-04-24 07:37] LABS: Glucose 488 mg/dL (70-105)
[2023-04-24 07:39] LABS: Band 6 % (5-11); CellaVision Operator ID LAB.KW3; Large Platelets 11.3 % (0-5); Lymphocytes 17 % (21-51); Monocytes 9 % (0-10); Neutrophil 66 % (42-75); Nucleated RBC (Manual Ct) 4 % (0); Platelet Adequacy Comment Significant decrease; RBC Morphology Within Normal Limits; Reactive Lymphocytes 2 % (0-10); Total Cell Count 53
[2023-04-24] MEDS: Insulin NPH Human Isophane 100 UNITS/ML (10 ML VIAL) SC SCH (08:42)
[2023-04-24] MEDS: Sodium Bicarbonate Tab 325 MG TAB PO SCH (09:18)
[2023-04-24] MEDS: HumaLOG 300 UNITS/3 ML VIAL SC SCH (11:41)
[2023-04-24] MEDS: Amlodipine 5 MG TAB PO SCH (14:59)
[2023-04-24] MEDS: Aquaphor 10 GM TUBE TOP PRN (16:05)
[2023-04-24] MEDS: Melatonin 3 MG TAB PO SCH (22:18)
[2023-04-25 00:59] LABS: Critical Call Chemistry NUR.SCG1 @0058; Glucose 593 mg/dL (70-105)
[2023-04-25 01:45] LABS: Critical Call Chemistry NUR.SCG1 @0145; Glucose 761 mg/dL (70-105)
[2023-04-25] MEDS: Sodium Chloride 0.9% 500 ML IV SCH (02:16)
[2023-04-25 02:24] LABS: Hematocrit 24.8 % (36.0-47.0); Hemoglobin 8.1 g/dL (12.0-16.0); Manual Diff?? YES; Mean Corpuscular HGB CONC 32.7 g/dL (32.0-36.0); Mean Corpuscular Hemoglobin 29.1 pg (27.0-31.0); Mean Corpuscular Volume 89.2 fl (78.0-98.0); Mean Platelet Volume 12.4 fL (7.4-10.4); RBC Distribution Width 13.6 % (11.5-14.5); Red Blood Cell (RBC) Count 2.78 mill/uL (4.20-5.40); White Blood Cell (WBC) Count 1.8 10x3/uL (4.8-10.8)
[2023-04-25 02:36] LABS: Delete Auto Diff?? YES; Platelet Count 69 10x3/uL (130-400)
[2023-04-25 03:05] LABS: Chloride 101 mmol/L (98-107); Potassium 5.1 mmol/L (3.5-5.1); Sodium 128 mmol/L (136-145)
[2023-04-25 03:06] LABS: Calcium 7.8 mg/dL (7.8-10.44)
[2023-04-25 03:08] LABS: Anion Gap 15 mmol/L (10-20); Carbon Dioxide 17 mmol/L (22-29)
[2023-04-25 03:10] LABS: Calc. Creatinine Clearance 48 mL/min (70-130); Estimated GFR 26
[2023-04-25 03:11] LABS: BUN (Urea Nitrogen) 60 mg/dL (7.0-18.7)
[2023-04-25 03:16] LABS: Glucose 785 mg/dL (70-105)
[2023-04-25 03:20] LABS: Band 5 % (5-11); CellaVision Operator ID LAB.CLH1; Hypochromia SLIGHT = 6-15 cells HPF (0-5); Large Platelets 1.7 % (0-5); Lymphocytes 25 % (21-51); Monocytes 8 % (0-10); Neutrophil 60 % (42-75); Nucleated RBC (Manual Ct) 2 % (0); Platelet Adequacy Comment Platelets Decreased; Polychromasia SLIGHT = 2-3 cells HPF (0-2); Reactive Lymphocytes 2 % (0-10); Total Cell Count 60
[2023-04-25] MEDS: Sodium Chloride 0.9% 1,000 ML IV SCH (04:04)
[2023-04-25 04:59] LABS: Critical Call Chemistry NUR.SEG1 @0459; Glucose 525 mg/dL (70-105)
[2023-04-25] MEDS ORDERED: Gabapentin 300 MG CAP PO PRN (07:35)
[2023-04-25] MEDS ORDERED: Electrolyte Replacement Protocol 1 EACH IVPB SCH (08:07)
[2023-04-25] MEDS ORDERED: HUMULIN R 100 UNITS in Sodium Chloride 0.9% 100 ML IVPB SCH (08:15)
[2023-04-25] MEDS: Amlodipine 10 MG TAB PO SCH (08:44)
[2023-04-25] MEDS: methylPREDNISolone Sod Succ 40 MG VIAL IVP SCH (08:46)
[2023-04-25] MEDS ORDERED: Insulin NPH Human Isophane 100 UNITS/ML (10 ML VIAL) SC SCH ×2 (09:00→14:00)
[2023-04-25] MEDS: Magnesium 2 GM/50 ML(in water) 2 GM in Premix 1 BAG IVPB SCH (09:41)
[2023-04-25] MEDS: Insulin NPH Human Isophane 100 UNITS/ML (10 ML VIAL) SC SCH ×2 (09:42→20:34)
[2023-04-25] MEDS: guaiFENesin ER 600 MG TAB PO SCH ×2 (11:17→20:34)
[2023-04-25] MEDS: HumaLOG 300 UNITS/3 ML VIAL SC SCH (13:05)
[2023-04-25] MEDS ORDERED: Lactulose 20 GM (30 mL) UDCUP PO PRN (14:48)
[2023-04-25] MEDS: Polyethylene Glycol 3350 17 GM Packet PO SCH (15:14)
[2023-04-25 15:55] LABS: Bacteria/HPF None Seen HPF (None Seen); Bilirubin Negative (Negative); Blood, Urine Trace (Negative); Clarity Clear (Clear); Glucose, Urine (Dipstick) 500 mg/dL (Negative); Ketone, Urine Negative (Negative); Leukocyte Negative Leu/uL (Negative); Nitrite Negative (Negative); Protein, Urine (Dipstick) 200 mg/dL (Neg-Trace); RBC/HPF 0-3 HPF (0-3); Specific Gravity, Urine 1.014 (1.002-1.036); Squamous Epithelial 0-3 HPF (0-3); Urobilinogen Normal mg/dL (Less than 2); WBC/HPF 0-3 HPF (0-3)
[2023-04-25] MEDS: HumaLOG 300 UNITS/3 ML VIAL SC PRN ×2 (16:09→19:52)
[2023-04-25 16:24] LABS: Creatinine, Urine 47.77 mg/dL (47-110)
[2023-04-26] MEDS: Melatonin 3 MG TAB PO PRN (00:38)
[2023-04-26] MEDS: Ipratropium/Albuterol 3 ML NEB NEB PRN (01:06)
[2023-04-26 04:17] LABS: Hematocrit 25.5 % (36.0-47.0); Hemoglobin 8.2 g/dL (12.0-16.0); Manual Diff?? YES; Mean Corpuscular HGB CONC 32.2 g/dL (32.0-36.0); Mean Corpuscular Hemoglobin 28.4 pg (27.0-31.0); Mean Corpuscular Volume 88.2 fl (78.0-98.0); Mean Platelet Volume 11.7 fL (7.4-10.4); RBC Distribution Width 13.6 % (11.5-14.5); Red Blood Cell (RBC) Count 2.89 mill/uL (4.20-5.40); White Blood Cell (WBC) Count 2.3 10x3/uL (4.8-10.8)
[2023-04-26 04:21] LABS: Delete Auto Diff?? YES; Platelet Count 73 10x3/uL (130-400)
[2023-04-26 04:43] LABS: Anion Gap 10 mmol/L (10-20); BUN (Urea Nitrogen) 63 mg/dL (7.0-18.7); Calc. Creatinine Clearance 58 mL/min (70-130); Calcium 7.6 mg/dL (7.8-10.44); Carbon Dioxide 22 mmol/L (22-29); Chloride 108 mmol/L (98-107); Estimated GFR 33; Glucose 349 mg/dL (70-105); Potassium 5.1 mmol/L (3.5-5.1); Sodium 135 mmol/L (136-145)
[2023-04-26 04:53] LABS: Band 3 % (5-11); CellaVision Operator ID lab.abc; Hypochromia SLIGHT = 6-15 cells HPF (0-5); Lymphocytes 10 % (21-51); Metamyelocyte 5 % (0-0); Monocytes 5 % (0-10); Neutrophil 75 % (42-75); Nucleated RBC (Manual Ct) 3 % (0); Platelet Adequacy Comment Platelets Decreased; Polychromasia SLIGHT = 2-3 cells HPF (0-2); Total Cell Count 40
[2023-04-26] MEDS: Polyethylene Glycol 3350 17 GM Packet PO SCH (08:46)
[2023-04-26 09:15] LABS: Bacteria/HPF 1+ HPF (None Seen); Bilirubin Negative (Negative); Blood, Urine Trace (Negative); CAUTI Indications for Culture Dysuria,urgency,freq; Clarity Clear (Clear); Glucose, Urine (Dipstick) 500 mg/dL (Negative); Ketone, Urine Negative (Negative); Leukocyte Negative Leu/uL (Negative); Nitrite Negative (Negative); Protein, Urine (Dipstick) 100 mg/dL (Neg-Trace); RBC/HPF 0-3 HPF (0-3); Specific Gravity, Urine 1.012 (1.002-1.036); Squamous Epithelial 0-3 HPF (0-3); Urobilinogen Normal mg/dL (Less than 2); WBC/HPF 0-3 HPF (0-3); pH, Urine 6.5 (5.0-9.0)
[2023-04-26 09:17] LABS: Urine Culture Reflex No No
[2023-04-26] MEDS: Acetaminophen 650 MG Suppository PR PRN (22:22)
[2023-04-27] MEDS: Glucagon 1 MG/ML KIT IM PRN (07:33)
[2023-04-27] MEDS ORDERED: predniSONE 20 MG TAB PO SCH (08:00)
[2023-04-27] MEDS: methylPREDNISolone Sod Succ 40 MG VIAL IVP SCH ×2 (08:06→13:58)
[2023-04-27] MEDS: Furosemide 40 MG (4 mL) VIAL SLOW IVP SCH (08:06)
[2023-04-27 09:29] LABS: Delete Auto Diff?? YES; Hemoglobin 8.5 g/dL (12.0-16.0); Manual Diff?? YES; Mean Corpuscular HGB CONC 32.7 g/dL (32.0-36.0); Mean Corpuscular Hemoglobin 29.5 pg (27.0-31.0); Mean Corpuscular Volume 90.3 fl (78.0-98.0); Mean Platelet Volume 11.1 fL (7.4-10.4); Platelet Count 87 10x3/uL (130-400); Red Blood Cell (RBC) Count 2.88 mill/uL (4.20-5.40); White Blood Cell (WBC) Count 7.7 10x3/uL (4.8-10.8)
[2023-04-27 09:47] LABS: ALT (SGPT) 19 U/L (8-55); AST (SGOT) 15 U/L (5-34); Albumin 2.5 g/dL (3.5-5.0); Alkaline Phosphatase 39 U/L (40-110); Anion Gap 9 mmol/L (10-20); BUN (Urea Nitrogen) 58 mg/dL (7.0-18.7); Bilirubin, Total 0.6 mg/dL (0.2-1.2); Calc. Creatinine Clearance 53 mL/min (70-130); Calcium 7.4 mg/dL (7.8-10.44); Carbon Dioxide 25 mmol/L (22-29); Chloride 105 mmol/L (98-107); Estimated GFR 29; Globulin 1.3 g/dL (2.4-3.5); Glucose 168 mg/dL (70-105); Potassium 4.1 mmol/L (3.5-5.1); Protein, Total 3.8 g/dL (6.0-8.3); Sodium 135 mmol/L (136-145)
[2023-04-27 10:52] LABS: Band 9 % (5-11); CellaVision Operator ID lab.sh2; Large Platelets 4.8 % (0-5); Lymphocytes 10 % (21-51); Monocytes 8 % (0-10); Neutrophil 74 % (42-75); Nucleated RBC (Manual Ct) 6 % (0); Ovalocytes MODERATE= 6-15 cells HPF (0-1); Platelet Adequacy Comment Platelets Decreased; Polychromasia MODERATE = 3-4 cells HPF (0-2); Smudge Cells 13.5 %; Tear Drops SLIGHT = 2-5 cells HPF (0-1); Total Cell Count 104
[2023-04-27] MEDS: Ampicillin/Sulbactam 3 GM in Sodium Chloride 0.9% 100 ML IVPB SCH (13:29)
[2023-04-27] MEDS: traMADol HCl 50 MG TAB PO SCH (13:57)
[2023-04-27] MEDS: Ergocalciferol 1.25 MG(50,000 UNITS) CAP PO SCH (13:58)
[2023-04-27] MEDS: traMADol HCl 50 MG TAB PO PRN (21:23)
[2023-04-27] MEDS: HumaLOG 300 UNITS/3 ML VIAL SC PRN (22:44)
[2023-04-27 23:24] LABS: Anion Gap 15 mmol/L (10-20); BUN (Urea Nitrogen) 63 mg/dL (7.0-18.7); Calc. Creatinine Clearance 46 mL/min (70-130); Calcium 7.7 mg/dL (7.8-10.44); Carbon Dioxide 19 mmol/L (22-29); Chloride 99 mmol/L (98-107); Estimated GFR 25; Potassium 5.8 mmol/L (3.5-5.1); Sodium 127 mmol/L (136-145)
[2023-04-27 23:52] LABS: Glucose 547 mg/dL (70-105)
[2023-04-28] MEDS: Sodium Chloride 0.9% 1,000 ML IV SCH (00:45)
[2023-04-28] MEDS: Ondansetron PF 4 MG/2 ML Vial IVP PRN (02:26)
[2023-04-28 04:38] LABS: Hemoglobin 7.8 g/dL (12.0-16.0); Manual Diff?? YES; Mean Corpuscular HGB CONC 32.5 g/dL (32.0-36.0); Mean Corpuscular Hemoglobin 28.8 pg (27.0-31.0); Mean Corpuscular Volume 88.6 fl (78.0-98.0); Mean Platelet Volume 11.6 fL (7.4-10.4); RBC Distribution Width 14.6 % (11.5-14.5); Red Blood Cell (RBC) Count 2.71 mill/uL (4.20-5.40); White Blood Cell (WBC) Count 6.3 10x3/uL (4.8-10.8)
[2023-04-28 04:55] LABS: Delete Auto Diff?? YES; Platelet Count 67 10x3/uL (130-400)
[2023-04-28 05:20] LABS: Anion Gap 15 mmol/L (10-20); BUN (Urea Nitrogen) 59 mg/dL (7.0-18.7); Calc. Creatinine Clearance 53 mL/min (70-130); Carbon Dioxide 19 mmol/L (22-29); Chloride 103 mmol/L (98-107); Estimated GFR 29; Glucose 313 mg/dL (70-105); Sodium 132 mmol/L (136-145)
[2023-04-28] MEDS: QUEtiapine 25 MG TAB PO SCH (05:22)
[2023-04-28 05:32] LABS: Band 6 % (5-11); CellaVision Operator ID lab.abc; Lymphocytes 4 % (21-51); Monocytes 3 % (0-10); Neutrophil 87 % (42-75); Nucleated RBC (Manual Ct) 1 % (0); Platelet Adequacy Comment Platelets Decreased; RBC Morphology Within Normal Limits; Smudge Cells 12.9 %; Total Cell Count 101
[2023-04-28] MEDS: Insulin NPH Human Isophane 100 UNITS/ML (10 ML VIAL) SC SCH (09:10)
[2023-04-28] MEDS: methylPREDNISolone Sod Succ 40 MG VIAL IVP SCH (20:15)
[2023-04-29] MEDS: Ondansetron PF 4 MG/2 ML Vial IVP PRN (05:58)
[2023-04-29 06:42] LABS: #Monocytes 0.1 thou/uL (0.11-0.59); #Neutrophils 5.1 thou/uL (1.40-6.50); %Lymphocytes 4.9 % (21.0-51.0); %Monocytes 1.3 % (0.0-10.0); %Neutrophils 91.8 % (42.0-75.0); Hematocrit 24.8 % (36.0-47.0); Mean Corpuscular HGB CONC 32.3 g/dL (32.0-36.0); Mean Corpuscular Volume 89.9 fl (78.0-98.0); Mean Platelet Volume 11.5 fL (7.4-10.4); Platelet Count 62 10x3/uL (130-400); RBC Distribution Width 14.9 % (11.5-14.5); Red Blood Cell (RBC) Count 2.76 mill/uL (4.20-5.40); White Blood Cell (WBC) Count 5.5 10x3/uL (4.8-10.8)
[2023-04-29 07:06] LABS: Anion Gap 19 mmol/L (10-20); BUN (Urea Nitrogen) 60 mg/dL (7.0-18.7); Calc. Creatinine Clearance 63 mL/min (70-130); Calcium 8.4 mg/dL (7.8-10.44); Carbon Dioxide 17 mmol/L (22-29); Chloride 106 mmol/L (98-107); Estimated GFR 36; Glucose 259 mg/dL (70-105); Potassium 5.5 mmol/L (3.5-5.1); Sodium 136 mmol/L (136-145)
[2023-04-29] MEDS: methylPREDNISolone Sod Succ 40 MG VIAL IVP SCH (08:59)
[2023-04-29] MEDS: Sodium Bicarbonate Tab 325 MG TAB PO SCH (09:01)
[2023-04-29] MEDS: LOKELMA 10 GM PACKET PO SCH (10:26)
[2023-04-29 15:53] VITALS: BMI 35.2
[2023-04-30 05:02] LABS: #Monocytes 0.2 thou/uL (0.11-0.59); #Neutrophils 3.9 thou/uL (1.40-6.50); %Basophils 0.2 % (0.0-1.0); %Lymphocytes 8.2 % (21.0-51.0); %Monocytes 3.9 % (0.0-10.0); %Neutrophils 83.6 % (42.0-75.0); Hematocrit 23.9 % (36.0-47.0); Hemoglobin 7.6 g/dL (12.0-16.0); Mean Corpuscular HGB CONC 31.8 g/dL (32.0-36.0); Mean Corpuscular Hemoglobin 28.8 pg (27.0-31.0); Mean Corpuscular Volume 90.5 fl (78.0-98.0); Mean Platelet Volume 11.3 fL (7.4-10.4); RBC Distribution Width 14.8 % (11.5-14.5); Red Blood Cell (RBC) Count 2.64 mill/uL (4.20-5.40); White Blood Cell (WBC) Count 4.7 10x3/uL (4.8-10.8)
[2023-04-30 05:07] LABS: Platelet Count 59 10x3/uL (130-400)
[2023-04-30 06:06] LABS: Anion Gap 17 mmol/L (10-20); BUN (Urea Nitrogen) 58 mg/dL (7.0-18.7); Calc. Creatinine Clearance 62 mL/min (70-130); Calcium 8.5 mg/dL (7.8-10.44); Carbon Dioxide 20 mmol/L (22-29); Chloride 106 mmol/L (98-107); Estimated GFR 36; Glucose 196 mg/dL (70-105); Potassium 5.4 mmol/L (3.5-5.1); Sodium 138 mmol/L (136-145)
[2023-04-30] MEDS: LOKELMA 10 GM PACKET PO SCH (08:20)
[2023-04-30] MEDS ORDERED: Benzocaine/Menthol 1 LOZ LOZ PO PRN (09:30)
[2023-04-30] MEDS: Fluconazole 100 MG TAB PO SCH (11:03)
[2023-04-30] MEDS: Nystatin Powder 15 GM BOT TOP PRN (11:05)
[2023-04-30 11:07] VITALS: BP 132/88; TEMP 98.1
== END 2023-04-30 11:55 | disposition home or self-care (01) | DRG 193 ==
LOC: 2NO 09:13 → OBSVTOIN 04-22 00:08 → IMCU/EMU 04-22 00:28 → SURG B 04-22 15:16 → SURG A 04-23 08:44 → IMCU/EMU 04-27 11:16 → T4-B 04-28 18:26
PROVIDERS: ADMIT Family Medicine; ATTEND Internal Medicine
PROC: 5A09357 Assistance with Respiratory Ventilation, Less than 24 Consecutive Hours, Continuous Positive Airway Pressure (ICD-10-PCS; principal; 2023-04-27)
DX: J10.08 Influenza due to other identified influenza virus with other specified pneumonia (principal); E10.10 Type 1 diabetes mellitus with ketoacidosis without coma; J96.01 Acute respiratory failure with hypoxia; D61.818 Other pancytopenia; N17.9 Acute kidney failure, unspecified; E87.20 Acidosis, unspecified; D83.9 Common variable immunodeficiency, unspecified; D59.10 Autoimmune hemolytic anemia, unspecified; B49 Unspecified mycosis; J69.0 Pneumonitis due to inhalation of food and vomit; J45.901 Unspecified asthma with (acute) exacerbation; E78.5 Hyperlipidemia, unspecified; E87.5 Hyperkalemia; D63.1 Anemia in chronic kidney disease; I12.9 Hypertensive chronic kidney disease with stage 1 through stage 4 chronic kidney disease, or unspecified chronic kidney disease; D69.6 Thrombocytopenia, unspecified; N18.30 Chronic kidney disease, stage 3 unspecified; M54.50 Low back pain, unspecified; E10.65 Type 1 diabetes mellitus with hyperglycemia; E10.22 Type 1 diabetes mellitus with diabetic chronic kidney disease; R30.0 Dysuria; E10.649 Type 1 diabetes mellitus with hypoglycemia without coma; Z88.2 Allergy status to sulfonamides; Z88.1 Allergy status to other antibiotic agents; Z88.8 Allergy status to other drugs, medicaments and biological substances; Z79.4 Long term (current) use of insulin; Z79.899 Other long term (current) drug therapy; Z91.119 Patient's noncompliance with dietary regimen due to unspecified reason
CPT/HCPCS: 36415; 36416; 71045; 72100; 80048; 81001; 82010; 82306; 82570; 82805; 83036; 83605; 83735; 83880; 84100; 84156; 84300; 85025; 87505; 94640; 94660; 96372; 96374; G0378; J0295; J1611; J1644; J1815; J1940; J2405; J2920; J2930; J3475; J3490; J7030; J7050; J7620; J7626; Q0162

== ENCOUNTER 2023-05-05 | Inpatient (IN) | payer OTHER | END 2023-05-18 11:35 | disposition home health service (06) | DRG 193 | PROVIDERS: ADMIT Family Medicine | PROC: 30233N1 Transfusion of Nonautologous Red Blood Cells into Peripheral Vein, Percutaneous Approach (ICD-10-PCS; principal; 2023-05-06) | DX: J10.00 Influenza due to other identified influenza virus with unspecified type of pneumonia (principal); E11.10 Type 2 diabetes mellitus with ketoacidosis without coma; J96.01 Acute respiratory failure with hypoxia; D83.9 Common variable immunodeficiency, unspecified; N18.4 Chronic kidney disease, stage 4 (severe); N17.9 Acute kidney failure, unspecified; D61.818 Other pancytopenia; E87.1 Hypo-osmolality and hyponatremia; R78.81 Bacteremia; I76 Septic arterial embolism; E11.22 Type 2 diabetes mellitus with diabetic chronic kidney disease; E78.5 Hyperlipidemia, unspecified; E87.5 Hyperkalemia; D69.6 Thrombocytopenia, unspecified; T38.0X5A Adverse effect of glucocorticoids and synthetic analogues, initial encounter; E86.9 Volume depletion, unspecified; D63.1 Anemia in chronic kidney disease; I12.9 Hypertensive chronic kidney disease with stage 1 through stage 4 chronic kidney disease, or unspecified chronic kidney disease; L03.012 Cellulitis of left finger; E87.6 Hypokalemia; K64.5 Perianal venous thrombosis; B95.7 Other staphylococcus as the cause of diseases classified elsewhere; E55.9 Vitamin D deficiency, unspecified; J45.909 Unspecified asthma, uncomplicated; Z79.51 Long term (current) use of inhaled steroids; Z79.4 Long term (current) use of insulin; Z79.899 Other long term (current) drug therapy; Z91.199 Patient's noncompliance with other medical treatment and regimen due to unspecified reason ==

== ENCOUNTER 2023-06-29 15:51 | Inpatient (IN) | payer OTHER ==
[2023-06-29 16:19] VITALS: BMI 34.2
[2023-06-29] MEDS ORDERED: Senokot S 8.6-50 MG TAB PO PRN (16:49)
[2023-06-29] MEDS ORDERED: Glucagon 1 MG/ML KIT IM PRN (16:59)
[2023-06-29] MEDS ORDERED: Dextrose 5% in Water 1,000 ML IV PRN (16:59)
[2023-06-29] MEDS ORDERED: Dextrose 50% Abboject 50 ML SYRINGE SLOW IVP PRN (16:59)
[2023-06-29] MEDS ORDERED: HumaLOG 300 UNITS/3 ML VIAL SC PRN (16:59)
[2023-06-29] MEDS ORDERED: Lactated Ringer's 1,000 ML IV SCH (17:30)
[2023-06-29] MEDS: Lactated Ringer's 1,000 ML IV SCH (17:46)
[2023-06-29] MEDS ORDERED: Albuterol 2.5 MG (3 mL) NEB NEB PRN (17:52)
[2023-06-29] MEDS: HumuLIN 70/30 (300 UNITS/3 ML VIAL) SC SCH (18:41)
[2023-06-29] MEDS: Sodium Bicarbonate Tab 325 MG TAB PO SCH (20:19)
[2023-06-29] MEDS: Doxycycline 100 MG CAP PO SCH (20:19)
[2023-06-29] MEDS: Heparin 5,000 UNITS/ML VIAL SC SCH (20:20)
[2023-06-29] MEDS: HumaLOG 300 UNITS/3 ML VIAL SC PRN (21:16)
[2023-06-29] MEDS: Acetaminophen 325 MG TAB PO PRN (21:58)
[2023-06-30] MEDS: Morphine 2 MG/ML VIAL SLOW IVP SCH (04:31)
[2023-06-30] MEDS: Melatonin 3 MG TAB PO SCH (04:31)
[2023-06-30 04:51] LABS: Hematocrit 23.4 % (36.0-47.0); Hemoglobin 6.8 g/dL (12.0-16.0); Mean Corpuscular HGB CONC 29.1 g/dL (32.0-36.0); Mean Corpuscular Hemoglobin 27.4 pg (27.0-31.0); Mean Corpuscular Volume 94.4 fL (78.0-98.0); Platelet Count 53 10x3/uL (130-400); RBC Distribution Width 16.7 % (11.5-14.5); Red Blood Cell (RBC) Count 2.48 mill/uL (4.20-5.40)
[2023-06-30 04:54] LABS: Anion Gap 13 mmol/L (10-20)
[2023-06-30 04:58] LABS: BUN (Urea Nitrogen) 19 mg/dL (7.0-18.7); Calc. Creatinine Clearance 68 mL/min (70-130); Carbon Dioxide 14 mmol/L (22-29); Chloride 113 mmol/L (98-107); Estimated GFR 41; Glucose 80 mg/dL (70-105); Iron 12 ug/dL (50-170); Potassium 4.2 mmol/L (3.5-5.1); Sodium 136 mmol/L (136-145)
[2023-06-30 05:42] LABS: Ferritin 1513.22 ng/mL (10-291)
[2023-06-30 05:46] LABS: Anisocytosis SLIGHT = 6-15 cells HPF (0-5); Hypochromia SLIGHT = 6-15 cells HPF (0-5); Large Platelets 3.6 % (0-5); Lymphocytes 22 % (21-51); Macrocytosis SLIGHT = 6-15 cells HPF (0-5); Neutrophil 78 % (42-75); Ovalocytes SLIGHT = 2-5 cells HPF (0-1); Platelet Adequacy Comment Significant Decrease; Polychromasia SLIGHT = 2-3 cells HPF (0-2); Smudge Cells 76.4 %
[2023-06-30] MEDS: cefTRIAXone\\ROCEPHIN 2 GM in Sodium Chloride 0.9% 100 ML IVPB SCH (08:31)
[2023-06-30] MEDS: Pantoprazole DR 40 MG TAB PO SCH (08:32)
[2023-06-30] MEDS: Atorvastatin Calcium 10 MG TAB PO SCH (08:32)
[2023-06-30] MEDS: HumuLIN 70/30 (300 UNITS/3 ML VIAL) SC SCH ×2 (08:32→16:29)
[2023-06-30] MEDS ORDERED: Enoxaparin 40 MG (0.4 mL) SYRINGE SC SCH (09:00)
[2023-06-30] MEDS ORDERED: Atorvastatin Calcium 10 MG TAB PO SCH (09:00)
[2023-06-30] MEDS ORDERED: Nystatin Powder 15 GM BOT TOP PRN (11:33)
[2023-06-30] MEDS ORDERED: Iron Sucrose Complex 100 MG in Sodium Chloride 0.9% 100 ML IVPB SCH (11:45)
[2023-06-30 12:14] LABS: Actual Bicarbonate (HCO3v) 18.7 mEq/L (22-28); Base Excess -5.7 mEq/L (-2.0 to +3.0); Calcium, Ionized (venous) 1.06 mmol/L (1.16-1.32); Chloride (VBG) 109 mmol/L (98-106); Hematocrit-VBG 18 % (36.0-47.0); Potassium (VBG) 4.58 mmol/L (3.70-5.30); Sodium 137 mmol/L (133-146); pH (venous) 7.396 (7.32-7.43)
[2023-06-30 14:28] LABS: Legionella Urinary Ag Negative (Negative)
[2023-06-30] MEDS: Sodium Ferric Gluconate 125 MG in Sodium Chloride 0.9% 100 ML IVPB SCH (14:49)
[2023-06-30] MEDS: traMADol HCl 50 MG TAB PO PRN (14:50)
[2023-06-30] MEDS: Ipratropium/Albuterol 3 ML NEB NEB SCH (14:52)
[2023-06-30 16:08] LABS: Strep pneumo Urine Ag NEGATIVE (NEGATIVE)
[2023-06-30] MEDS: Cefepime 2 GM in Sodium Chloride 0.9% 100 ML IVPB SCH (21:01)
[2023-07-01 07:18] LABS: Anion Gap 13 mmol/L (10-20)
[2023-07-01 07:21] LABS: BUN (Urea Nitrogen) 16 mg/dL (7.0-18.7); Calc. Creatinine Clearance 69 mL/min (70-130); Calcium 7.4 mg/dL (7.8-10.44); Carbon Dioxide 14 mmol/L (22-29); Chloride 112 mmol/L (98-107); Estimated GFR 42; Glucose 270 mg/dL (70-105); Potassium 5.1 mmol/L (3.5-5.1); Sodium 134 mmol/L (136-145)
[2023-07-01 07:41] LABS: Band 0 % (5-11); Blast 0 % (0-0); Eosinophils 1 % (0-10); Hematocrit 20.2 % (36.0-47.0); Lymphocytes 38 % (21-51); Mean Corpuscular HGB CONC 29.7 g/dL (32.0-36.0); Mean Corpuscular Hemoglobin 26.5 pg (27.0-31.0); Mean Corpuscular Volume 89.4 fL (78.0-98.0); Mean Platelet Volume 13.2 fL (7.4-10.4); Metamyelocyte 0 % (0-0); Monocytes 9 % (0-10); Myelocyte 0 % (0-0); Neutrophil 51 % (42-75); Plasma Cells 0 % (0-0); Platelet Adequacy Comment Appears Decreased; Platelet Count 63 10x3/uL (130-400); Promyelocytes 0 % (0-0); RBC Distribution Width 16.7 % (11.5-14.5); Reactive Lymphocytes 0 % (0-10); Red Blood Cell (RBC) Count 2.26 mill/uL (4.20-5.40); Total Cell Count 100
[2023-07-01] MEDS: Lorazepam 0.5 MG TAB PO PRN (15:37)
[2023-07-01] MEDS: HumuLIN 70/30 (300 UNITS/3 ML VIAL) SC SCH (16:57)
[2023-07-01] MEDS: guaiFENesin/Codeine 200 mg/20 mg 10 ml Cup PO PRN (18:05)
[2023-07-01 18:51] LABS: Hematocrit 25.9 % (36.0-47.0); Hemoglobin 8.1 g/dL (12.0-16.0)
[2023-07-01] MEDS: Benzonatate 100 MG CAP PO SCH (21:54)
[2023-07-01] MEDS: Pregabalin 25 MG CAP PO SCH (21:55)
[2023-07-01] MEDS: Carvedilol 6.25 MG TAB PO SCH (21:56)
[2023-07-01] MEDS: Cefepime 1 GM in Sodium Chloride 0.9% 100 ML IVPB SCH (21:56)
[2023-07-01] MEDS: HYDROcodone/Acetaminophen 5/325 mg Tablet PO PRN (21:58)
[2023-07-02 04:51] LABS: Hematocrit 24.1 % (36.0-47.0); Hemoglobin 7.4 g/dL (12.0-16.0); Mean Corpuscular HGB CONC 30.7 g/dL (32.0-36.0); Mean Corpuscular Volume 91.3 fL (78.0-98.0); Mean Platelet Volume 12.2 fL (7.4-10.4); Platelet Count 78 10x3/uL (130-400); RBC Distribution Width 15.8 % (11.5-14.5); Red Blood Cell (RBC) Count 2.64 mill/uL (4.20-5.40)
[2023-07-02 05:04] LABS: Anion Gap 9 mmol/L (10-20)
[2023-07-02 05:07] LABS: BUN (Urea Nitrogen) 17 mg/dL (7.0-18.7); Calc. Creatinine Clearance 76 mL/min (70-130); Carbon Dioxide 18 mmol/L (22-29); Chloride 112 mmol/L (98-107); Estimated GFR 47; Glucose 237 mg/dL (70-105); Potassium 4.3 mmol/L (3.5-5.1); Sodium 135 mmol/L (136-145)
[2023-07-02 05:31] LABS: Anisocytosis SLIGHT = 6-15 cells HPF (0-5); Band 7 % (5-11); Hypochromia SLIGHT = 6-15 cells HPF (0-5); Large Platelets 10.8 % (0-5); Lymphocytes 26 % (21-51); Monocytes 6 % (0-10); Neutrophil 62 % (42-75); Ovalocytes SLIGHT = 2-5 cells HPF (0-1); Platelet Adequacy Comment Platelets Decreased; Polychromasia SLIGHT = 2-3 cells HPF (0-2); Smudge Cells 30.4 %; Tear Drops SLIGHT = 2-5 cells HPF (0-1)
[2023-07-02] MEDS: Amlodipine 5 MG TAB PO SCH (09:30)
[2023-07-02] MEDS: Empagliflozin 10 MG TAB PO SCH (09:31)
[2023-07-02] MEDS: HumaLOG 300 UNITS/3 ML VIAL SC PRN (11:18)
[2023-07-02] MEDS: guaiFENesin ER 600 MG TAB PO SCH (20:59)
[2023-07-03 04:28] LABS: Hematocrit 23.1 % (36.0-47.0); Hemoglobin 7.2 g/dL (12.0-16.0); Mean Corpuscular HGB CONC 31.2 g/dL (32.0-36.0); Mean Corpuscular Hemoglobin 27.8 pg (27.0-31.0); Mean Corpuscular Volume 89.2 fL (78.0-98.0); Mean Platelet Volume 11.3 fL (7.4-10.4); Platelet Count 82 10x3/uL (130-400); RBC Distribution Width 15.6 % (11.5-14.5); Red Blood Cell (RBC) Count 2.59 mill/uL (4.20-5.40)
[2023-07-03 05:00] LABS: Anion Gap 12 mmol/L (10-20); BUN (Urea Nitrogen) 22 mg/dL (7.0-18.7); Calc. Creatinine Clearance 77 mL/min (70-130); Calcium 8.3 mg/dL (7.8-10.44); Carbon Dioxide 19 mmol/L (22-29); Chloride 112 mmol/L (98-107); Estimated GFR 48; Glucose 96 mg/dL (70-105); Sodium 139 mmol/L (136-145)
[2023-07-03 06:07] LABS: Hypochromia SLIGHT = 6-15 cells (100X) (0-5/hpf); Lymphocytes 24 % (21-51); Monocytes 8 % (0-10); Neutrophil 68 % (42-75); Plasma Cells 0 % (0-0); Platelet Adequacy Comment Appears Decreased; Total Cell Count 25
[2023-07-03] MEDS: Mometasone 200 MCG/Formoterol 5 MCG 120 PUFF INHALER INH SCH (20:35)
[2023-07-04 04:31] LABS: Hematocrit 23.9 % (36.0-47.0); Hemoglobin 7.4 g/dL (12.0-16.0); Mean Corpuscular Hemoglobin 27.1 pg (27.0-31.0); Mean Corpuscular Volume 87.5 fL (78.0-98.0); Mean Platelet Volume 10.3 fL (7.4-10.4); Platelet Count 93 10x3/uL (130-400); RBC Distribution Width 15.8 % (11.5-14.5); Red Blood Cell (RBC) Count 2.73 mill/uL (4.20-5.40)
[2023-07-04 04:49] LABS: Anion Gap 12 mmol/L (10-20); BUN (Urea Nitrogen) 24 mg/dL (7.0-18.7); Calc. Creatinine Clearance 70 mL/min (70-130); Calcium 8.6 mg/dL (7.8-10.44); Carbon Dioxide 20 mmol/L (22-29); Chloride 115 mmol/L (98-107); Estimated GFR 42; Glucose 100 mg/dL (70-105); Potassium 4.4 mmol/L (3.5-5.1); Sodium 143 mmol/L (136-145)
[2023-07-04 05:18] LABS: Anisocytosis SLIGHT = 6-15 cells HPF (0-5); Band 6 % (5-11); Eosinophils 1 % (0-10); Large Platelets 4.8 % (0-5); Lymphocytes 30 % (21-51); Monocytes 11 % (0-10); Neutrophil 53 % (42-75); Nucleated RBC (Manual Ct) 2 % (0); Ovalocytes SLIGHT = 2-5 cells HPF (0-1); Platelet Adequacy Comment Platelets Decreased; Polychromasia MODERATE = 3-4 cells HPF (0-2); Smudge Cells 16.3 %; Tear Drops SLIGHT = 2-5 cells HPF (0-1)
[2023-07-04] MEDS: Cyclobenzaprine 10 MG TAB PO PRN (15:30)
[2023-07-04 22:12] LABS: L.pneumophilia Abs Non Reactive (Non Reactive)
[2023-07-04 22:36] LABS: Mycoplasma pneumoniae IgG AB Less than 100 U/mL (0-99); Mycoplasma pneumoniae IgM AB Less than 770 U/mL (0-769)
[2023-07-05 05:49] LABS: Hematocrit 24.4 % (36.0-47.0); Hemoglobin 7.6 g/dL (12.0-16.0); Mean Corpuscular HGB CONC 31.1 g/dL (32.0-36.0); Mean Corpuscular Hemoglobin 27.5 pg (27.0-31.0); Mean Corpuscular Volume 88.4 fL (78.0-98.0); Mean Platelet Volume 11.8 fL (7.4-10.4); Platelet Count 94 10x3/uL (130-400); RBC Distribution Width 15.9 % (11.5-14.5); Red Blood Cell (RBC) Count 2.76 mill/uL (4.20-5.40)
[2023-07-05 06:20] LABS: Band 2 % (5-11); Eosinophils 2 % (0-10); Hypochromia SLIGHT = 6-15 cells HPF (0-5); Large Platelets 7.1 % (0-5); Lymphocytes 29 % (21-51); Monocytes 6 % (0-10); Myelocyte 7 % (0-0); Neutrophil 54 % (42-75); Nucleated RBC (Manual Ct) 1 % (0); Platelet Adequacy Comment Platelets Decreased; Polychromasia SLIGHT = 2-3 cells HPF (0-2); Smudge Cells 17.3 %
[2023-07-05 06:34] LABS: Anion Gap 10 mmol/L (10-20); BUN (Urea Nitrogen) 24 mg/dL (7.0-18.7); Calc. Creatinine Clearance 75 mL/min (70-130); Calcium 8.7 mg/dL (7.8-10.44); Carbon Dioxide 21 mmol/L (22-29); Chloride 114 mmol/L (98-107); Estimated GFR 47; Glucose 149 mg/dL (70-105); Potassium 4.2 mmol/L (3.5-5.1); Sodium 141 mmol/L (136-145)
[2023-07-06 07:58] LABS: #Basophils Less than 0.03 10x3/uL (0.0-0.2); %Basophils 0.4 % (0.0-1.0); %Eosinophils 2.5 % (0.0-10.0); %Lymphocytes 31.1 % (21.0-51.0); %Monocytes 9.1 % (0.0-10.0); Hematocrit 26.8 % (36.0-47.0); Hemoglobin 8.2 g/dL (12.0-16.0); Mean Corpuscular HGB CONC 30.6 g/dL (32.0-36.0); Mean Corpuscular Hemoglobin 27.9 pg (27.0-31.0); Mean Corpuscular Volume 91.2 fL (78.0-98.0); Mean Platelet Volume 10.2 fL (7.4-10.4); Platelet Count 93 10x3/uL (130-400); RBC Distribution Width 15.9 % (11.5-14.5); Red Blood Cell (RBC) Count 2.94 mill/uL (4.20-5.40)
[2023-07-06 08:06] LABS: Globulin 2.5 g/dL (2.4-3.5)
[2023-07-06 08:10] LABS: ALT (SGPT) 18 U/L (8-55); AST (SGOT) 22 U/L (5-34); Albumin 2.3 g/dL (3.5-5.0); Alkaline Phosphatase 57 U/L (40-110); Anion Gap 15 mmol/L (10-20); BUN (Urea Nitrogen) 25 mg/dL (7.0-18.7); Bilirubin, Total 0.5 mg/dL (0.2-1.2); Calc. Creatinine Clearance 78 mL/min (70-130); Calcium 8.9 mg/dL (7.8-10.44); Carbon Dioxide 18 mmol/L (22-29); Chloride 113 mmol/L (98-107); Estimated GFR 49; Glucose 115 mg/dL (70-105); Potassium 4.6 mmol/L (3.5-5.1); Protein, Total 4.8 g/dL (6.0-8.3); Sodium 141 mmol/L (136-145)
[2023-07-06] MEDS: Ondansetron PF 4 MG/2 ML Vial IVP PRN (13:33)
[2023-07-06] MEDS: Lidocaine 4% Patch TD SCH (13:34)
[2023-07-06 14:26] VITALS: BMI 34.2
[2023-07-07] MEDS: Transdermal Patch Removal TOP SCH (03:22)
[2023-07-07 08:52] LABS: Hematocrit 25.4 % (36.0-47.0); Hemoglobin 7.6 g/dL (12.0-16.0); Mean Corpuscular HGB CONC 29.9 g/dL (32.0-36.0); Mean Corpuscular Hemoglobin 27.7 pg (27.0-31.0); Mean Corpuscular Volume 92.7 fL (78.0-98.0); Mean Platelet Volume 11.2 fL (7.4-10.4); Platelet Count 87 10x3/uL (130-400); Red Blood Cell (RBC) Count 2.74 mill/uL (4.20-5.40)
[2023-07-07 08:57] LABS: Globulin 2.3 g/dL (2.4-3.5)
[2023-07-07 09:01] LABS: ALT (SGPT) 19 U/L (8-55); AST (SGOT) 25 U/L (5-34); Albumin 2.2 g/dL (3.5-5.0); Alkaline Phosphatase 56 U/L (40-110); Anion Gap 13 mmol/L (10-20); BUN (Urea Nitrogen) 26 mg/dL (7.0-18.7); Bilirubin, Total 0.4 mg/dL (0.2-1.2); Calc. Creatinine Clearance 69 mL/min (70-130); Calcium 8.8 mg/dL (7.8-10.44); Carbon Dioxide 20 mmol/L (22-29); Chloride 111 mmol/L (98-107); Estimated GFR 42; Glucose 163 mg/dL (70-105); Magnesium 1.3 mg/dL (1.6-2.6); Potassium 4.5 mmol/L (3.5-5.1); Protein, Total 4.5 g/dL (6.0-8.3); Sodium 139 mmol/L (136-145)
[2023-07-07 09:23] LABS: Band 5 % (5-11); Eosinophils 4 % (0-10); Lymphocytes 38 % (21-51); Monocytes 6 % (0-10); Neutrophil 48 % (42-75); Platelet Adequacy Comment Significant Decrease; Polychromasia SLIGHT = 2-3 cells HPF (0-2); Schistocytes SLIGHT = 2-5 cells HPF (0-1); Tear Drops SLIGHT = 2-5 cells HPF (0-1)
[2023-07-07] MEDS: Magnesium Oxide 400 MG TAB PO SCH ×2 (12:37→21:38)
[2023-07-07] MEDS: Sodium Chloride 0.9% 1,000 ML IV SCH (12:38)
[2023-07-08 06:16] LABS: Hematocrit 24.3 % (36.0-47.0); Hemoglobin 7.6 g/dL (12.0-16.0); Mean Corpuscular HGB CONC 31.3 g/dL (32.0-36.0); Mean Corpuscular Hemoglobin 27.6 pg (27.0-31.0); Mean Corpuscular Volume 88.4 fL (78.0-98.0); Mean Platelet Volume 11.7 fL (7.4-10.4); Platelet Count 79 10x3/uL (130-400); RBC Distribution Width 15.9 % (11.5-14.5); Red Blood Cell (RBC) Count 2.75 mill/uL (4.20-5.40)
[2023-07-08 06:27] LABS: Globulin 2.2 g/dL (2.4-3.5)
[2023-07-08 06:31] LABS: ALT (SGPT) 21 U/L (8-55); AST (SGOT) 25 U/L (5-34); Albumin 2.4 g/dL (3.5-5.0); Alkaline Phosphatase 55 U/L (40-110); Anion Gap 12 mmol/L (10-20); BUN (Urea Nitrogen) 26 mg/dL (7.0-18.7); Bilirubin, Total 0.5 mg/dL (0.2-1.2); Calc. Creatinine Clearance 72 mL/min (70-130); Calcium 8.8 mg/dL (7.8-10.44); Carbon Dioxide 19 mmol/L (22-29); Chloride 112 mmol/L (98-107); Estimated GFR 44; Glucose 163 mg/dL (70-105); Magnesium 1.3 mg/dL (1.6-2.6); Potassium 4.8 mmol/L (3.5-5.1); Protein, Total 4.6 g/dL (6.0-8.3); Sodium 138 mmol/L (136-145)
[2023-07-08 06:42] LABS: Band 5 % (5-11); Lymphocytes 29 % (21-51); Metamyelocyte 4 % (0-0); Monocytes 7 % (0-10); Myelocyte 1 % (0-0); Neutrophil 55 % (42-75); Platelet Adequacy Comment Platelets Decreased; Polychromasia SLIGHT = 2-3 cells HPF (0-2); Smudge Cells 17.8 %
[2023-07-08] MEDS ORDERED: Ipratropium/Albuterol 3 ML NEB NEB PRN (10:19)
[2023-07-09] MEDS: traMADol HCl 50 MG TAB PO SCH (07:36)
[2023-07-09 08:20] LABS: Globulin 2.3 g/dL (2.4-3.5)
[2023-07-09 08:49] LABS: Hematocrit 25.5 % (36.0-47.0); Mean Corpuscular HGB CONC 31.4 g/dL (32.0-36.0); Mean Corpuscular Hemoglobin 28.2 pg (27.0-31.0); Mean Corpuscular Volume 89.8 fL (78.0-98.0); Mean Platelet Volume 11.8 fL (7.4-10.4); Platelet Count 84 10x3/uL (130-400); Red Blood Cell (RBC) Count 2.84 mill/uL (4.20-5.40)
[2023-07-09 09:21] LABS: Anisocytosis SLIGHT = 6-15 cells HPF (0-5); Hypochromia SLIGHT = 6-15 cells HPF (0-5); Platelet Adequacy Comment Platelets Decreased; Poikilocytosis SLIGHT = 6-15 cells HPF (0-5); Polychromasia SLIGHT = 2-3 cells HPF (0-2)
[2023-07-09 09:24] LABS: #Basophils Less than 0.03 10x3/uL (0.0-0.2); %Basophils 0.7 % (0.0-1.0); %Eosinophils 1.7 % (0.0-10.0); %Lymphocytes 32.4 % (21.0-51.0); %Monocytes 9.7 % (0.0-10.0); %Neutrophils 49.6 % (42.0-75.0)
[2023-07-09 09:46] LABS: ALT (SGPT) 22 U/L (8-55); AST (SGOT) 24 U/L (5-34); Albumin 2.4 g/dL (3.5-5.0); Alkaline Phosphatase 54 U/L (40-110); Anion Gap 14 mmol/L (10-20); BUN (Urea Nitrogen) 29 mg/dL (7.0-18.7); Bilirubin, Total 0.4 mg/dL (0.2-1.2); Calc. Creatinine Clearance 75 mL/min (70-130); Carbon Dioxide 18 mmol/L (22-29); Chloride 112 mmol/L (98-107); Estimated GFR 47; Potassium 4.2 mmol/L (3.5-5.1); Protein, Total 4.7 g/dL (6.0-8.3); Sodium 140 mmol/L (136-145)
[2023-07-10 05:21] LABS: Globulin 2.2 g/dL (2.4-3.5)
[2023-07-10 05:23] LABS: #Basophils Less than 0.03 10x3/uL (0.0-0.2); %Basophils 0.3 % (0.0-1.0); %Eosinophils 1.7 % (0.0-10.0); %Monocytes 11.3 % (0.0-10.0); Hematocrit 24.7 % (36.0-47.0); Hemoglobin 7.9 g/dL (12.0-16.0); Mean Corpuscular Hemoglobin 28.3 pg (27.0-31.0); Mean Corpuscular Volume 88.5 fL (78.0-98.0); Platelet Count 82 10x3/uL (130-400); Red Blood Cell (RBC) Count 2.79 mill/uL (4.20-5.40)
[2023-07-10 05:26] LABS: ALT (SGPT) 20 U/L (8-55); AST (SGOT) 21 U/L (5-34); Albumin 2.4 g/dL (3.5-5.0); Alkaline Phosphatase 58 U/L (40-110); Anion Gap 14 mmol/L (10-20); BUN (Urea Nitrogen) 30 mg/dL (7.0-18.7); Bilirubin, Total 0.5 mg/dL (0.2-1.2); Calc. Creatinine Clearance 75 mL/min (70-130); Calcium 9.1 mg/dL (7.8-10.44); Carbon Dioxide 20 mmol/L (22-29); Chloride 110 mmol/L (98-107); Estimated GFR 46; Glucose 104 mg/dL (70-105); Potassium 4.5 mmol/L (3.5-5.1); Protein, Total 4.6 g/dL (6.0-8.3); Sodium 139 mmol/L (136-145)
[2023-07-11 06:36] LABS: #Basophils Less than 0.03 10x3/uL (0.0-0.2); %Basophils 0.7 % (0.0-1.0); %Eosinophils 1.8 % (0.0-10.0); %Monocytes 9.4 % (0.0-10.0); %Neutrophils 55.6 % (42.0-75.0); Hematocrit 24.9 % (36.0-47.0); Hemoglobin 7.7 g/dL (12.0-16.0); Mean Corpuscular HGB CONC 30.9 g/dL (32.0-36.0); Mean Corpuscular Volume 90.5 fL (78.0-98.0); Mean Platelet Volume 12.5 fL (7.4-10.4); Platelet Count 80 10x3/uL (130-400); RBC Distribution Width 16.8 % (11.5-14.5); Red Blood Cell (RBC) Count 2.75 mill/uL (4.20-5.40)
[2023-07-11 06:43] LABS: Globulin 2.2 g/dL (2.4-3.5)
[2023-07-11 06:47] LABS: ALT (SGPT) 19 U/L (8-55); AST (SGOT) 19 U/L (5-34); Albumin 2.6 g/dL (3.5-5.0); Alkaline Phosphatase 57 U/L (40-110); Anion Gap 16 mmol/L (10-20); BUN (Urea Nitrogen) 39 mg/dL (7.0-18.7); Bilirubin, Total 0.5 mg/dL (0.2-1.2); Calc. Creatinine Clearance 65 mL/min (70-130); Calcium 9.3 mg/dL (7.8-10.44); Carbon Dioxide 19 mmol/L (22-29); Chloride 111 mmol/L (98-107); Estimated GFR 39; Glucose 88 mg/dL (70-105); Potassium 4.7 mmol/L (3.5-5.1); Protein, Total 4.8 g/dL (6.0-8.3); Sodium 141 mmol/L (136-145)
[2023-07-11] MEDS ORDERED: diphenhydrAMINE 25 MG CAP PO PRN (09:54)
[2023-07-11 10:33] VITALS: BP 125/82; TEMP 97.1
== END 2023-07-11 10:23 | disposition home or self-care (01) | DRG 871 ==
LOC: 2NO 15:51 → T4-B 07-10 11:29
PROVIDERS: ADMIT Family Medicine; ATTEND Internal Medicine
PROC: 3E03329 Introduction of Other Anti-infective into Peripheral Vein, Percutaneous Approach (ICD-10-PCS; principal; 2023-06-30)
PROC: 30233N1 Transfusion of Nonautologous Red Blood Cells into Peripheral Vein, Percutaneous Approach (ICD-10-PCS; 2023-07-01)
DX: A41.9 Sepsis, unspecified organism (principal); J18.9 Pneumonia, unspecified organism; D81.9 Combined immunodeficiency, unspecified; D59.10 Autoimmune hemolytic anemia, unspecified; D61.818 Other pancytopenia; E87.20 Acidosis, unspecified; N13.30 Unspecified hydronephrosis; J45.909 Unspecified asthma, uncomplicated; N20.0 Calculus of kidney; E11.22 Type 2 diabetes mellitus with diabetic chronic kidney disease; D63.1 Anemia in chronic kidney disease; E11.65 Type 2 diabetes mellitus with hyperglycemia; F41.9 Anxiety disorder, unspecified; E11.21 Type 2 diabetes mellitus with diabetic nephropathy; K76.0 Fatty (change of) liver, not elsewhere classified; N18.30 Chronic kidney disease, stage 3 unspecified; D69.6 Thrombocytopenia, unspecified; B97.89 Other viral agents as the cause of diseases classified elsewhere; R16.1 Splenomegaly, not elsewhere classified; N83.8 Other noninflammatory disorders of ovary, fallopian tube and broad ligament; Z88.0 Allergy status to penicillin; Z88.2 Allergy status to sulfonamides; Z88.8 Allergy status to other drugs, medicaments and biological substances; Z79.899 Other long term (current) drug therapy; Z79.4 Long term (current) use of insulin
CPT/HCPCS: 36415; 36416; 36430; 71045; 71111; 72052; 74018; 76700; 80048; 80053; 82607; 82728; 82805; 83036; 83540; 83735; 84145; 85025; 86713; 86850; 86900; 86901; 86922; 87081; 87324; 87449; 87633; 87899; 93005; 93010; 93970; 94640; 94664; J0692; J0696; J1815; J2405; J2916; J3490; J7050; J7120; J7620; P9040

== ENCOUNTER 2023-10-24 11:35 | Day surgery (SDC) | payer OTHER ==
[2023-10-24] MEDS ORDERED: Acetaminophen 500 MG TAB ONE (12:45)
[2023-10-24] MEDS: Acetaminophen 500 MG TAB PO SCH (12:46)
[2023-10-24] MEDS ORDERED: diphenhydrAMINE 25 MG CAP ONE (12:57)
[2023-10-24] MEDS: diphenhydrAMINE 25 MG CAP PO SCH (12:59)
[2023-10-24 15:05] VITALS: BP 115/70; TEMP 98.3
== END 2023-10-24 15:24 | disposition home or self-care (01) ==
LOC: ONC/OP 11:35
PROVIDERS: ATTEND Internal Medicine
DX: D64.9 Anemia, unspecified (principal); D69.6 Thrombocytopenia, unspecified; Z88.1 Allergy status to other antibiotic agents; Z88.2 Allergy status to sulfonamides; Z88.0 Allergy status to penicillin; Z88.8 Allergy status to other drugs, medicaments and biological substances
CPT/HCPCS: 36430; 86850; 86900; 86901; 86922; P9016

== ENCOUNTER 2023-11-16 23:44 | Inpatient (IN) | payer OTHER ==
[2023-11-17] MEDS ORDERED: Glucagon 1 MG/ML KIT IM PRN (01:17)
[2023-11-17] MEDS ORDERED: Dextrose 5% in Water 1,000 ML IV PRN (01:17)
[2023-11-17] MEDS ORDERED: Dextrose 50% Abboject 50 ML SYRINGE SLOW IVP PRN (01:17)
[2023-11-17] MEDS ORDERED: Pregabalin 25 MG CAP PO PRN (01:18)
[2023-11-17] MEDS ORDERED: PRAMOXINE HCL TOP PRN (01:26)
[2023-11-17] MEDS ORDERED: CALAMINE TOP PRN (01:26)
[2023-11-17] MEDS: traMADol HCl 50 MG TAB PO PRN (02:04)
[2023-11-17] MEDS: Sodium Chloride 0.9% 1,000 ML IV SCH (02:11)
[2023-11-17 02:59] VITALS: BMI 34.3
[2023-11-17 04:14] LABS: Bacteria/HPF None Seen HPF (None Seen); Bilirubin Negative (Negative); Blood, Urine 2+ (Negative); CAUTI Indications for Culture Dysuria,urgency,freq; Clarity Clear (Clear); Glucose, Urine (Dipstick) 70 mg/dL (Negative); Ketone, Urine Negative (Negative); Leukocyte Negative Leu/uL (Negative); Nitrite Negative (Negative); Protein, Urine (Dipstick) 300 mg/dL (Neg-Trace); RBC/HPF 0-3 HPF (0-3); Specific Gravity, Urine 1.014 (1.002-1.036); Urobilinogen Normal mg/dL (Less than 2); WBC/HPF 0-3 HPF (0-3)
[2023-11-17 04:18] LABS: Urine Culture Reflex No No
[2023-11-17] MEDS: Acetaminophen 325 MG TAB PO SCH (06:07)
[2023-11-17] MEDS: Insulin Lispro 100 UNIT/ML 10 ML VIAL SC PRN ×2 (06:21→20:56)
[2023-11-17 07:08] LABS: Hematocrit 21.7 % (36.0-47.0); Hemoglobin 6.7 g/dL (12.0-16.0); Mean Corpuscular HGB CONC 30.9 g/dL (32.0-36.0); Mean Corpuscular Hemoglobin 29.8 pg (27.0-31.0); Mean Corpuscular Volume 96.4 fL (78.0-98.0); Mean Platelet Volume 11.3 fL (7.4-10.4); Platelet Count 43 10x3/uL (130-400); Red Blood Cell (RBC) Count 2.25 mill/uL (4.20-5.40)
[2023-11-17 07:11] LABS: Hemoglobin A1c 6.4 % (4.0-6.0)
[2023-11-17 07:13] LABS: ALT (SGPT) 7 U/L (8-55); AST (SGOT) 10 U/L (5-34); Alkaline Phosphatase 52 U/L (40-110); Anion Gap 12 mmol/L (10-20); BUN (Urea Nitrogen) 34 mg/dL (7.0-18.7); Bilirubin, Total 0.9 mg/dL (0.2-1.2); Calc. Creatinine Clearance 43 mL/min (70-130); Calcium 8.2 mg/dL (7.8-10.44); Carbon Dioxide 20 mmol/L (22-29); Chloride 111 mmol/L (98-107); Estimated GFR 24; Globulin 1.9 g/dL (2.4-3.5); Glucose 232 mg/dL (70-105); Potassium 4.9 mmol/L (3.5-5.1); Protein, Total 4.9 g/dL (6.0-8.3); Sodium 138 mmol/L (136-145)
[2023-11-17 07:33] LABS: Anisocytosis SLIGHT = 6-15 cells HPF (0-5); Band 4 % (5-11); Eosinophils 1 % (0-10); Hypochromia SLIGHT = 6-15 cells HPF (0-5); Lymphocytes 34 % (21-51); Metamyelocyte 2 % (0-0); Monocytes 3 % (0-10); Neutrophil 55 % (42-75); Nucleated RBC (Manual Ct) 1 % (0); Ovalocytes SLIGHT = 2-5 cells HPF (0-1); Platelet Adequacy Comment Significant Decrease; Polychromasia SLIGHT = 2-3 cells HPF (0-2); Tear Drops SLIGHT = 2-5 cells HPF (0-1); Toxic Granulation SLIGHT
[2023-11-17] MEDS ORDERED: Famotidine 20 MG TAB PO SCH (09:00)
[2023-11-17] MEDS ORDERED: Insulin Glargine 30 UNITS/0.3 ML VIAL SC SCH (09:00)
[2023-11-17] MEDS: Pantoprazole DR 40 MG TAB PO SCH (09:31)
[2023-11-17] MEDS: Carvedilol 6.25 MG TAB PO SCH (09:32)
[2023-11-17] MEDS: Amlodipine 5 MG TAB PO SCH (09:32)
[2023-11-17] MEDS: Insulin Glargine 30 UNITS/0.3 ML VIAL SC SCH (09:32)
[2023-11-17] MEDS: Sodium Bicarbonate Tab 325 MG TAB PO SCH (10:17)
[2023-11-17] MEDS: Ipratropium/Albuterol 3 ML NEB NEB PRN (10:32)
[2023-11-17] MEDS: predniSONE 20 MG TAB PO SCH ×2 (12:17→20:37)
[2023-11-17] MEDS: Insulin NPH Human Isophane 100 UNITS/ML (10 ML VIAL) SC SCH ×2 (12:18→20:38)
[2023-11-17] MEDS: Budesonide 0.5 MG/2 ML NEB INH SCH (18:13)
[2023-11-17] MEDS: Ipratropium/Albuterol 3 ML NEB NEB SCH (18:15)
[2023-11-18] MEDS: Cyclobenzaprine 10 MG TAB PO PRN (00:16)
[2023-11-18 04:36] LABS: Bacteria/HPF None Seen HPF (None Seen); Bilirubin Negative (Negative); Blood, Urine 2+ (Negative); CAUTI Indications for Culture Pelvic or flank pain; Clarity Clear (Clear); Glucose, Urine (Dipstick) Greater than 1000 mg/dL (Negative); Ketone, Urine Negative (Negative); Leukocyte Negative Leu/uL (Negative); Nitrite Negative (Negative); Protein, Urine (Dipstick) 200 mg/dL (Neg-Trace); RBC/HPF 0-3 HPF (0-3); Specific Gravity, Urine 1.009 (1.002-1.036); Squamous Epithelial 0-3 HPF (0-3); Urobilinogen Normal mg/dL (Less than 2); WBC/HPF 0-3 HPF (0-3); pH, Urine 6.5 (5.0-9.0)
[2023-11-18 04:39] LABS: Urine Culture Reflex No No
[2023-11-18 06:14] LABS: Anion Gap 13 mmol/L (10-20); BUN (Urea Nitrogen) 39 mg/dL (7.0-18.7); Calc. Creatinine Clearance 52 mL/min (70-130); Calcium 8.3 mg/dL (7.8-10.44); Carbon Dioxide 18 mmol/L (22-29); Chloride 110 mmol/L (98-107); Estimated GFR 30; Glucose 321 mg/dL (70-105); Potassium 6.2 mmol/L (3.5-5.1); Sodium 135 mmol/L (136-145)
[2023-11-18 06:15] LABS: Hematocrit 19.9 % (36.0-47.0); Hemoglobin 6.5 g/dL (12.0-16.0); Mean Corpuscular HGB CONC 32.7 g/dL (32.0-36.0); Mean Corpuscular Volume 91.7 fL (78.0-98.0); Mean Platelet Volume 11.4 fL (7.4-10.4); Platelet Count 46 10x3/uL (130-400); RBC Distribution Width 18.9 % (11.5-14.5); Red Blood Cell (RBC) Count 2.17 mill/uL (4.20-5.40)
[2023-11-18 08:10] LABS: Band 3 % (5-11); Lymphocytes 19 % (21-51); Monocytes 4 % (0-10); Neutrophil 73 % (42-75); Nucleated RBC (Manual Ct) 1 % (0); Platelet Adequacy Comment Significant Decrease; Polychromasia SLIGHT = 2-3 cells HPF (0-2); Reactive Lymphocytes 1 % (0-10)
[2023-11-18] MEDS ORDERED: predniSONE 20 MG TAB PO SCH (09:00)
[2023-11-18] MEDS: Dextrose 50% Abboject 50 ML SYRINGE SLOW IVP SCH (09:06)
[2023-11-18] MEDS: Insulin Regular, Human 100 UNIT/ML 10 ML VIAL IVP SCH ×2 (09:09→20:04)
[2023-11-18] MEDS: Sodium Polystyrene Sulfonate 15 GM (60 mL) BOT PO SCH (09:14)
[2023-11-18] MEDS: predniSONE 20 MG TAB PO SCH (09:14)
[2023-11-18] MEDS: Insulin NPH Human Isophane 100 UNITS/ML (10 ML VIAL) SC SCH (09:44)
[2023-11-18] MEDS: Sodium Bicarbonate Tab 325 MG TAB PO SCH (11:07)
[2023-11-18] MEDS ORDERED: Insulin Glargine 30 UNITS/0.3 ML VIAL SC SCH (11:09)
[2023-11-18] MEDS: Insulin Glargine 30 UNITS/0.3 ML VIAL SC SCH ×2 (11:34→23:59)
[2023-11-18 13:46] VITALS: BMI 36.8
[2023-11-18 18:06] LABS: Anion Gap 15 mmol/L (10-20); BUN (Urea Nitrogen) 36 mg/dL (7.0-18.7); Calc. Creatinine Clearance 60 mL/min (70-130); Calcium 8.5 mg/dL (7.8-10.44); Carbon Dioxide 18 mmol/L (22-29); Chloride 110 mmol/L (98-107); Estimated GFR 33; Glucose 470 mg/dL (70-105); Potassium 5.5 mmol/L (3.5-5.1); Sodium 137 mmol/L (136-145)
[2023-11-18] MEDS: LOKELMA 10 GM PACKET PO SCH (20:04)
[2023-11-18] MEDS: Sodium Chloride 0.9% 500 ML IV SCH (20:05)
[2023-11-18] MEDS ORDERED: Sodium Chloride 0.9% 500 ML IV SCH (20:45)
[2023-11-18 21:41] LABS: Anion Gap 16 mmol/L (10-20); BUN (Urea Nitrogen) 40 mg/dL (7.0-18.7); Calc. Creatinine Clearance 58 mL/min (70-130); Carbon Dioxide 16 mmol/L (22-29); Chloride 108 mmol/L (98-107); Estimated GFR 31; Glucose 621 mg/dL (70-105); Potassium 4.8 mmol/L (3.5-5.1); Sodium 135 mmol/L (136-145)
[2023-11-18] MEDS: Sodium Chloride 0.9% 1,000 ML IV SCH (21:56)
[2023-11-19 04:42] LABS: Anion Gap 15 mmol/L (10-20); BUN (Urea Nitrogen) 41 mg/dL (7.0-18.7); Calc. Creatinine Clearance 67 mL/min (70-130); Calcium 8.6 mg/dL (7.8-10.44); Carbon Dioxide 18 mmol/L (22-29); Chloride 110 mmol/L (98-107); Estimated GFR 37; Glucose 348 mg/dL (70-105); Potassium 4.6 mmol/L (3.5-5.1); Sodium 138 mmol/L (136-145)
[2023-11-19 04:52] LABS: Hematocrit 23.2 % (36.0-47.0); Hemoglobin 7.3 g/dL (12.0-16.0); Mean Corpuscular HGB CONC 31.5 g/dL (32.0-36.0); Mean Corpuscular Hemoglobin 29.2 pg (27.0-31.0); Mean Corpuscular Volume 92.8 fL (78.0-98.0); Mean Platelet Volume 10.7 fL (7.4-10.4); Platelet Count 54 10x3/uL (130-400); RBC Distribution Width 19.4 % (11.5-14.5)
[2023-11-19 05:20] LABS: Band 3 % (5-11); Hypochromia SLIGHT = 6-15 cells HPF (0-5); Lymphocytes 11 % (21-51); Macrocytosis SLIGHT = 6-15 cells HPF (0-5); Monocytes 2 % (0-10); Myelocyte 2 % (0-0); Neutrophil 81 % (42-75); Ovalocytes SLIGHT = 2-5 cells HPF (0-1); Platelet Adequacy Comment Significant Decrease; Polychromasia SLIGHT = 2-3 cells HPF (0-2); Tear Drops SLIGHT = 2-5 cells HPF (0-1); Toxic Granulation SLIGHT
[2023-11-19] MEDS: Insulin Glargine 30 UNITS/0.3 ML VIAL SC SCH ×2 (08:44→19:18)
[2023-11-19] MEDS: Insulin NPH Human Isophane 100 UNITS/ML (10 ML VIAL) SC SCH (08:45)
[2023-11-19] MEDS: predniSONE 20 MG TAB PO SCH (08:47)
[2023-11-19] MEDS: Arformoterol 15 MCG/2 ML NEB NEB SCH (19:16)
[2023-11-19] MEDS: methylPREDNISolone Sod Succ 40 MG VIAL IVP SCH (19:34)
[2023-11-19] MEDS: Labetalol HCl 100 MG/20 ML VIAL SLOW IVP SCH (21:10)
[2023-11-19] MEDS: Lactated Ringer's 1,000 ML IV SCH (21:10)
[2023-11-19] MEDS: Ondansetron ODT 4 MG TAB PO PRN (22:07)
[2023-11-19] MEDS: Insulin Regular, Human 100 UNIT/ML 10 ML VIAL IVP SCH (22:10)
[2023-11-20] MEDS ORDERED: Benzocaine/Menthol 1 LOZ LOZ PO PRN (03:13)
[2023-11-20 05:40] LABS: Hematocrit 24.2 % (36.0-47.0); Hemoglobin 7.9 g/dL (12.0-16.0); Mean Corpuscular HGB CONC 32.6 g/dL (32.0-36.0); Mean Corpuscular Hemoglobin 30.2 pg (27.0-31.0); Mean Corpuscular Volume 92.4 fL (78.0-98.0); Platelet Count 69 10x3/uL (130-400); RBC Distribution Width 19.3 % (11.5-14.5); Red Blood Cell (RBC) Count 2.62 mill/uL (4.20-5.40)
[2023-11-20 05:45] LABS: Anion Gap 14 mmol/L (10-20); BUN (Urea Nitrogen) 46 mg/dL (7.0-18.7); Calc. Creatinine Clearance 70 mL/min (70-130); Calcium 8.8 mg/dL (7.8-10.44); Carbon Dioxide 20 mmol/L (22-29); Chloride 107 mmol/L (98-107); Estimated GFR 39; Glucose 331 mg/dL (70-105); Potassium 5.1 mmol/L (3.5-5.1); Sodium 136 mmol/L (136-145)
[2023-11-20 06:06] LABS: Anisocytosis SLIGHT = 6-15 cells HPF (0-5); Lymphocytes 6 % (21-51); Macrocytosis SLIGHT = 6-15 cells HPF (0-5); Metamyelocyte 3 % (0-0); Monocytes 1 % (0-10); Neutrophil 90 % (42-75); Nucleated RBC (Manual Ct) 2 % (0); Platelet Adequacy Comment Platelets Decreased; Polychromasia SLIGHT = 2-3 cells HPF (0-2); Tear Drops SLIGHT = 2-5 cells HPF (0-1); Toxic Granulation SLIGHT
[2023-11-20] MEDS: Arformoterol 15 MCG/2 ML NEB NEB SCH (07:42)
[2023-11-20] MEDS: EPOETIN ALFA-EPBX (ESRD) 40,000 UNITS/ML VIAL SC SCH (08:28)
[2023-11-20] MEDS: methylPREDNISolone Sod Succ 40 MG VIAL IVP SCH (08:34)
[2023-11-20] MEDS: Lidocaine 4% Patch TD SCH (11:59)
[2023-11-20] MEDS: Insulin Regular, Human 100 UNIT/ML 10 ML VIAL IVP SCH ×2 (16:18→18:00)
[2023-11-20] MEDS: Insulin Lispro 100 UNIT/ML 10 ML VIAL SC PRN (16:40)
[2023-11-20 18:47] LABS: Glucose 597 mg/dL (70-105)
[2023-11-20] MEDS: Transdermal Patch Removal TOP SCH (21:17)
[2023-11-20 23:48] LABS: Glucose 534 mg/dL (70-105)
[2023-11-21 06:25] LABS: Hematocrit 25.6 % (36.0-47.0); Hemoglobin 8.3 g/dL (12.0-16.0); Mean Corpuscular HGB CONC 32.4 g/dL (32.0-36.0); Mean Corpuscular Hemoglobin 29.9 pg (27.0-31.0); Mean Corpuscular Volume 92.1 fL (78.0-98.0); Mean Platelet Volume 11.1 fL (7.4-10.4); Platelet Count 72 10x3/uL (130-400); RBC Distribution Width 19.4 % (11.5-14.5); Red Blood Cell (RBC) Count 2.78 mill/uL (4.20-5.40)
[2023-11-21 06:30] LABS: Anion Gap 13 mmol/L (10-20); BUN (Urea Nitrogen) 54 mg/dL (7.0-18.7); Calc. Creatinine Clearance 66 mL/min (70-130); Carbon Dioxide 22 mmol/L (22-29); Chloride 107 mmol/L (98-107); Estimated GFR 36; Glucose 145 mg/dL (70-105); Potassium 4.6 mmol/L (3.5-5.1); Sodium 137 mmol/L (136-145)
[2023-11-21 07:58] LABS: Band 4 % (5-11); Lymphocytes 13 % (21-51); Metamyelocyte 2 % (0-0); Monocytes 3 % (0-10); Neutrophil 78 % (42-75); Nucleated RBC (Manual Ct) 3 % (0); Platelet Adequacy Comment Significant Decrease; RBC Morphology Within Normal Limits
[2023-11-21] MEDS: hydrOXYzine 25 MG TAB PO PRN (08:32)
[2023-11-21] MEDS: Guaifenesin DM 100-10/5 ML UDCUP PO PRN (08:35)
[2023-11-21] MEDS: methylPREDNISolone Sod Succ 40 MG VIAL IVP SCH (08:40)
[2023-11-21] MEDS: Insulin Regular, Human 100 UNIT/ML 10 ML VIAL IVP SCH (16:15)
[2023-11-21 18:50] LABS: Bilirubin Negative (Negative); Blood, Urine 1+ (Negative); CAUTI Indications for Culture Dysuria,urgency,freq; Clarity Clear (Clear); Glucose, Urine (Dipstick) 500 mg/dL (Negative); Ketone, Urine Negative (Negative); Leukocyte Negative Leu/uL (Negative); Nitrite Negative (Negative); Protein, Urine (Dipstick) 300 mg/dL (Neg-Trace); Specific Gravity, Urine 1.014 (1.002-1.036); Urobilinogen Normal mg/dL (Less than 2); pH, Urine 6.5 (5.0-9.0)
[2023-11-21 18:52] LABS: RBC/HPF 0-3 HPF (0-3); WBC/HPF 0-3 HPF (0-3)
[2023-11-21 18:53] LABS: Bacteria/HPF Rare-Few HPF (None Seen); Squamous Epithelial 0-3 HPF (0-3)
[2023-11-21 18:54] LABS: Urine Culture Reflex No No
[2023-11-22 05:36] LABS: Hematocrit 27.2 % (36.0-47.0); Hemoglobin 8.8 g/dL (12.0-16.0); Mean Corpuscular HGB CONC 32.4 g/dL (32.0-36.0); Mean Corpuscular Hemoglobin 29.6 pg (27.0-31.0); Mean Corpuscular Volume 91.6 fL (78.0-98.0); Mean Platelet Volume 11.4 fL (7.4-10.4); Platelet Count 68 10x3/uL (130-400); RBC Distribution Width 19.4 % (11.5-14.5); Red Blood Cell (RBC) Count 2.97 mill/uL (4.20-5.40)
[2023-11-22 05:39] LABS: Anion Gap 12 mmol/L (10-20); BUN (Urea Nitrogen) 58 mg/dL (7.0-18.7); Calc. Creatinine Clearance 67 mL/min (70-130); Calcium 8.7 mg/dL (7.8-10.44); Carbon Dioxide 24 mmol/L (22-29); Chloride 106 mmol/L (98-107); Estimated GFR 36; Glucose 198 mg/dL (70-105); Potassium 4.3 mmol/L (3.5-5.1); Sodium 138 mmol/L (136-145)
[2023-11-22 06:21] LABS: Anisocytosis SLIGHT = 6-15 cells HPF (0-5); Band 2 % (5-11); Large Platelets 1.9 % (0-5); Lymphocytes 18 % (21-51); Macrocytosis SLIGHT = 6-15 cells HPF (0-5); Metamyelocyte 1 % (0-0); Monocytes 9 % (0-10); Neutrophil 70 % (42-75); Nucleated RBC (Manual Ct) 2 % (0); Platelet Adequacy Comment Platelets Decreased; Polychromasia SLIGHT = 2-3 cells HPF (0-2); Smudge Cells 3.7 %
[2023-11-22] MEDS ORDERED: HumaLOG 300 UNITS/3 ML VIAL SC SCH (18:45)
[2023-11-22] MEDS ORDERED: Insulin Regular, Human 100 UNIT/ML 10 ML VIAL IVP SCH (19:45)
[2023-11-22 19:50] LABS: Glucose 635 mg/dL (70-105)
[2023-11-22] MEDS: Insulin Regular, Human 100 UNIT/ML 10 ML VIAL IVP SCH (19:56)
[2023-11-22] MEDS ORDERED: Insulin Regular, Human 100 UNIT/ML 10 ML VIAL SC SCH (20:00)
[2023-11-22] MEDS: Insulin Lispro 100 UNIT/ML 10 ML VIAL SC SCH ×2 (20:18→23:17)
[2023-11-22] MEDS: Insulin Glargine 30 UNITS/0.3 ML VIAL SC SCH (20:19)
[2023-11-22] MEDS: Phenol 177 ML BOT PO PRN (22:40)
[2023-11-23] MEDS: Ondansetron PF 4 MG/2 ML Vial IVP PRN (00:23)
[2023-11-23] MEDS: Insulin Lispro 100 UNIT/ML 10 ML VIAL SC SCH ×2 (01:35→08:46)
[2023-11-23] MEDS ORDERED: Insulin Lispro 100 UNIT/ML 10 ML VIAL SC SCH (07:30)
[2023-11-23] MEDS: Insulin Glargine 30 UNITS/0.3 ML VIAL SC SCH (09:00)
[2023-11-23] MEDS: Melatonin 3 MG TAB PO PRN (21:27)
[2023-11-24 12:09] VITALS: BP 120/77; TEMP 98
== END 2023-11-24 13:50 | disposition home or self-care (01) | DRG 809 ==
LOC: MSONC 23:44 → OBSVTOIN 11-17 08:25
PROVIDERS: ADMIT Internal Medicine; ATTEND Internal Medicine
PROC: 30233N1 Transfusion of Nonautologous Red Blood Cells into Peripheral Vein, Percutaneous Approach (ICD-10-PCS; principal; 2023-11-18)
DX: D61.818 Other pancytopenia (principal); D83.9 Common variable immunodeficiency, unspecified; J45.51 Severe persistent asthma with (acute) exacerbation; E87.20 Acidosis, unspecified; N17.9 Acute kidney failure, unspecified; E11.65 Type 2 diabetes mellitus with hyperglycemia; D64.9 Anemia, unspecified; E11.22 Type 2 diabetes mellitus with diabetic chronic kidney disease; N18.9 Chronic kidney disease, unspecified; R59.1 Generalized enlarged lymph nodes; R91.8 Other nonspecific abnormal finding of lung field; E66.01 Morbid (severe) obesity due to excess calories; E86.0 Dehydration; E87.5 Hyperkalemia; Z88.1 Allergy status to other antibiotic agents; Z88.8 Allergy status to other drugs, medicaments and biological substances; Z88.2 Allergy status to sulfonamides; Z88.0 Allergy status to penicillin; Z79.899 Other long term (current) drug therapy; Z79.4 Long term (current) use of insulin; Z68.37 Body mass index [BMI] 37.0-37.9, adult
CPT/HCPCS: 36415; 36416; 36430; 71045; 76770; 80048; 80053; 81001; 83036; 85025; 86850; 86900; 86901; 86922; 87040; 94640; G0378; J1815; J2405; J2919; J7030; J7120; J7512; J7620; J7626; J7999; P9040; Q0162; Q5105

== ENCOUNTER 2023-12-03 16:58 | Inpatient (IN) | payer OTHER ==
[2023-12-03] MEDS ORDERED: Lorazepam 2 MG/ML VIAL ONE (19:23)
[2023-12-03 19:56] LABS: Anion Gap 20 mmol/L (10-20); BUN (Urea Nitrogen) 54 mg/dL (7.0-18.7); Calc. Creatinine Clearance 0 mL/min (70-130); Calcium 7.8 mg/dL (7.8-10.44); Carbon Dioxide 15 mmol/L (22-29); Chloride 103 mmol/L (98-107); Estimated GFR 14; Glucose 308 mg/dL (70-105); Potassium 4.8 mmol/L (3.5-5.1); Sodium 133 mmol/L (136-145)
[2023-12-03 21:03] LABS: Hematocrit 21.2 % (36.0-47.0); Hemoglobin 7.1 g/dL (12.0-16.0); Mean Corpuscular HGB CONC 33.5 g/dL (32.0-36.0); Mean Corpuscular Hemoglobin 30.1 pg (27.0-31.0); Mean Corpuscular Volume 89.8 fL (78.0-98.0); Mean Platelet Volume 12.4 fL (7.4-10.4); Platelet Count 41 10x3/uL (130-400); RBC Distribution Width 18.5 % (11.5-14.5); Red Blood Cell (RBC) Count 2.36 mill/uL (4.20-5.40)
[2023-12-03 21:55] LABS: Anisocytosis SLIGHT = 6-15 cells HPF (0-5); Band 4 % (5-11); Lymphocytes 5 % (21-51); Microcytosis SLIGHT = 6-15 cells HPF (0-5); Neutrophil 91 % (42-75); Platelet Adequacy Comment Significant Decrease; Polychromasia SLIGHT = 2-3 cells HPF (0-2); Tear Drops SLIGHT = 2-5 cells HPF (0-1); Toxic Granulation SLIGHT
[2023-12-03] MEDS ORDERED: NS 0.9% w/ 20 MEQ KCL 1,000 ML IV PRN ×2 (23:22)
[2023-12-03] MEDS ORDERED: D5 1/2 NS w/20 mEq KCL 1,000 ML IV PRN (23:22)
[2023-12-03] MEDS ORDERED: Sodium Chloride 0.9% 1,000 ML IV PRN ×4 (23:22)
[2023-12-03] MEDS ORDERED: Dextrose 5 %-0.45 % NaCl 1,000 ML IV PRN (23:22)
[2023-12-03] MEDS ORDERED: Dextrose 50% Abboject 50 ML SYRINGE SLOW IVP PRN (23:22)
[2023-12-03] MEDS ORDERED: INSULIN REGULAR IN 0.9 % NACL 100 ML IVPB SCH (23:30)
[2023-12-03] MEDS ORDERED: Dextrose 10% in Water 250 ML ONE (23:43)
[2023-12-03] MEDS ORDERED: D5 1/2 NS w/20 mEq KCL 1,000 ML ONE (23:44)
[2023-12-04] MEDS ORDERED: Vancomycin Dose by Levels Sliding Scale (Wt 71-99) FS SCH (00:30)
[2023-12-04] MEDS ORDERED: Dextrose 10% in Water 250 ML ONE (00:32)
[2023-12-04 02:10] LABS: Lactic Acid 1.69 mmol/L (0.5-2.2)
[2023-12-04 02:12] LABS: Phosphorus 3.6 mg/dL (2.3-4.7)
[2023-12-04 02:13] LABS: INR-International Normal Ratio 1.9; Prothrombin Time 22.1 sec (12.0-14.7)
[2023-12-04 02:14] LABS: PTT 41.5 sec (22.9-36.1)
[2023-12-04] MEDS ORDERED: Acetaminophen 325 MG TAB ONE (02:54)
[2023-12-04] MEDS ORDERED: Cefepime 1 GM VIAL ONE ×2 (02:55→17:04)
[2023-12-04] MEDS ORDERED: Sodium Chloride 0.9% 100 ML ONE ×2 (02:56→17:04)
[2023-12-04 03:05] LABS: #Basophils Less than 0.03 10x3/uL (0.0-0.2); #Eosinophils Less than 0.03 10x3/uL (0.0-0.7); %Basophils 0.4 % (0.0-1.0); %Lymphocytes 8.5 % (21.0-51.0); %Monocytes 4.1 % (0.0-10.0); %Neutrophils 77.8 % (42.0-75.0); Hematocrit 32.2 % (36.0-47.0); Hemoglobin 9.9 g/dL (12.0-16.0); Mean Corpuscular HGB CONC 30.7 g/dL (32.0-36.0); Mean Corpuscular Hemoglobin 30.2 pg (27.0-31.0); Mean Corpuscular Volume 98.2 fL (78.0-98.0); Mean Platelet Volume 12.2 fL (7.4-10.4); Platelet Count 33 10x3/uL (130-400); RBC Distribution Width 18.6 % (11.5-14.5); Red Blood Cell (RBC) Count 3.28 mill/uL (4.20-5.40)
[2023-12-04] MEDS: Cefepime 1 GM in Sodium Chloride 0.9% 100 ML IVPB SCH (03:19)
[2023-12-04 03:20] LABS: Chloride 108 mmol/L (98-107); Potassium 4.5 mmol/L (3.5-5.1); Sodium 133 mmol/L (136-145)
[2023-12-04 03:21] LABS: Calcium 7.5 mg/dL (7.8-10.44); Glucose 143 mg/dL (70-105)
[2023-12-04 03:23] LABS: Anion Gap 18 mmol/L (10-20); Carbon Dioxide 12 mmol/L (22-29)
[2023-12-04 03:25] LABS: BUN (Urea Nitrogen) 56 mg/dL (7.0-18.7); Calc. Creatinine Clearance 0 mL/min (70-130); Estimated GFR 14
[2023-12-04] MEDS: Acetaminophen 325 MG TAB PO PRN (03:25)
[2023-12-04 03:27] LABS: Magnesium 1.4 mg/dL (1.6-2.6)
[2023-12-04] MEDS ORDERED: INSULIN REGULAR IN 0.9 % NACL 0 ML ONE (03:34)
[2023-12-04] MEDS ORDERED: INSULIN REGULAR IN 0.9 % NACL 100 ML ONE (03:37)
[2023-12-04] MEDS: Dextrose 50% Abboject 50 ML SYRINGE SLOW IVP PRN (04:22)
[2023-12-04] MEDS: Vancomycin (BATCH) 2 GM in Premix 1 BAG IVPB SCH (04:29)
[2023-12-04] MEDS ORDERED: Magnesium 2 GM/50 ML BAG (IN WATER) ONE (04:41)
[2023-12-04] MEDS: Ipratropium/Albuterol 3 ML NEB NEB SCH ×3 (04:43→22:33)
[2023-12-04] MEDS ORDERED: Sodium Bicarb 50 MEQ/50 ML Abboject 8.4% SYRINGE ONE (04:46)
[2023-12-04] MEDS ORDERED: Ondansetron PF 4 MG/2 ML Vial ONE ×2 (04:46→12:33)
[2023-12-04] MEDS ORDERED: traMADol HCl 50 MG TAB ONE ×2 (04:47→12:33)
[2023-12-04] MEDS ORDERED: Glucagon 1 MG/ML KIT IM PRN (04:49)
[2023-12-04] MEDS ORDERED: Dextrose 5% in Water 1,000 ML IV PRN (04:49)
[2023-12-04] MEDS ORDERED: Magnesium Sulfate 2 GM in Sodium Chloride 0.9% 100 ML IVPB SCH (05:00)
[2023-12-04 05:16] VITALS: BMI 34.0
[2023-12-04] MEDS: traMADol HCl 50 MG TAB PO SCH (05:21)
[2023-12-04] MEDS: Magnesium 2 GM/50 ML(in water) 2 GM in Premix 1 BAG IVPB SCH (05:21)
[2023-12-04] MEDS: Ondansetron PF 4 MG/2 ML Vial IVP PRN (05:23)
[2023-12-04] MEDS: Sodium Bicarbonate 150 MEQ in Sterile Water 1,000 ML IV SCH (06:04)
[2023-12-04 06:50] LABS: Anion Gap 16 mmol/L (10-20); BUN (Urea Nitrogen) 55 mg/dL (7.0-18.7); Calc. Creatinine Clearance 32 mL/min (70-130); Calcium 7.2 mg/dL (7.8-10.44); Carbon Dioxide 17 mmol/L (22-29); Chloride 106 mmol/L (98-107); Estimated GFR 15; Glucose 141 mg/dL (70-105); Potassium 4.2 mmol/L (3.5-5.1); Sodium 135 mmol/L (136-145)
[2023-12-04] MEDS ORDERED: Heparin 5,000 UNITS/ML VIAL SC SCH (09:00)
[2023-12-04] MEDS ORDERED: Insulin Lispro 100 UNIT/ML 10 ML VIAL ONE ×2 (10:29→11:10)
[2023-12-04] MEDS: Insulin Glargine 30 UNITS/0.3 ML VIAL SC SCH ×2 (11:10→20:22)
[2023-12-04] MEDS: Insulin Lispro 100 UNIT/ML 10 ML VIAL SC PRN ×2 (11:11→21:01)
[2023-12-04] MEDS: traMADol HCl 50 MG TAB PO PRN (12:38)
[2023-12-04 13:56] LABS: Legionella Urinary Ag Negative (Negative)
[2023-12-04 13:57] LABS: Strep pneumo Urine Ag POSITIVE (NEGATIVE)
[2023-12-04] MEDS ORDERED: Ipratropium/Albuterol 3 ML NEB ONE (14:36)
[2023-12-04] MEDS: EPOETIN ALFA-EPBX (ESRD) 40,000 UNITS/ML VIAL SC SCH (17:14)
[2023-12-04] MEDS: Albumin 25% 25 GM (100 mL) BOT IVPB SCH (20:15)
[2023-12-04] MEDS: methylPREDNISolone Sod Succ 40 MG VIAL IVP SCH (20:15)
[2023-12-04] MEDS: Pantoprazole 40 MG VIAL IVP SCH (20:16)
[2023-12-04] MEDS: Ciprofloxacin 0.2% Otic (0.25ML CONTAINER) R EAR SCH (20:59)
[2023-12-05 01:40] LABS: Vancomycin, Trough 23.7 ug/mL
[2023-12-05 01:47] LABS: Albumin 2.6 g/dL (3.5-5.0); Anion Gap 20 mmol/L (10-20); BUN (Urea Nitrogen) 59 mg/dL (7.0-18.7); BUN/Creatinine Ratio 15.09; Calc. Creatinine Clearance 31 mL/min (70-130); Calcium 7.8 mg/dL (7.8-10.44); Carbon Dioxide 17 mmol/L (22-29); Chloride 98 mmol/L (98-107); Estimated GFR 15; Glucose 433 mg/dL (70-105); Phosphorus 6.1 mg/dL (2.3-4.7); Potassium 5.6 mmol/L (3.5-5.1); Sodium 129 mmol/L (136-145)
[2023-12-05] MEDS: methylPREDNISolone Sod Succ 40 MG VIAL IVP SCH (02:36)
[2023-12-05] MEDS: Insulin Lispro 100 UNIT/ML 10 ML VIAL SC PRN (02:36)
[2023-12-05] MEDS: Insulin Regular, Human 100 UNIT/ML 10 ML VIAL IVP SCH (02:36)
[2023-12-05 04:38] LABS: Anion Gap 18 mmol/L (10-20); BUN (Urea Nitrogen) 60 mg/dL (7.0-18.7); Calc. Creatinine Clearance 30 mL/min (70-130); Calcium 7.9 mg/dL (7.8-10.44); Carbon Dioxide 23 mmol/L (22-29); Chloride 96 mmol/L (98-107); Estimated GFR 14; Glucose 314 mg/dL (70-105); Magnesium 2.2 mg/dL (1.6-2.6); Potassium 4.8 mmol/L (3.5-5.1); Sodium 132 mmol/L (136-145)
[2023-12-05 06:19] LABS: Hematocrit 17.8 % (36.0-47.0); Hemoglobin 5.7 g/dL (12.0-16.0); Mean Corpuscular Volume 93.7 fL (78.0-98.0); Mean Platelet Volume 12.2 fL (7.4-10.4); Platelet Count 36 10x3/uL (130-400); RBC Distribution Width 18.6 % (11.5-14.5)
[2023-12-05 06:59] LABS: Band 5 % (5-11); Large Platelets 7.9 % (0-5); Lymphocytes 8 % (21-51); Neutrophil 87 % (42-75); Platelet Adequacy Comment Significant Decrease; RBC Morphology Within Normal Limits
[2023-12-05] MEDS: Mometasone 200 MCG/Formoterol 5 MCG 120 PUFF INHALER INH SCH (07:01)
[2023-12-05] MEDS ORDERED: INSULIN REGULAR IN 0.9 % NACL 100 ML IVPB SCH (07:15)
[2023-12-05] MEDS: Electrolyte Replacement Protocol 1 EACH IVPB ONE (07:38)
[2023-12-05] MEDS ORDERED: Electrolyte Replacement Protocol 1 EACH IVPB SCH (08:01)
[2023-12-05] MEDS ORDERED: Dextrose 5 %-0.45 % NaCl 1,000 ML IV PRN (08:01)
[2023-12-05] MEDS ORDERED: NS 0.9% w/ 20 MEQ KCL 1,000 ML IV PRN ×2 (08:01)
[2023-12-05] MEDS ORDERED: Sodium Chloride 0.9% 1,000 ML IV PRN ×4 (08:01)
[2023-12-05] MEDS: INSULIN REGULAR IN 0.9 % NACL 100 ML IVPB SCH (08:14)
[2023-12-05] MEDS: Pantoprazole 40 MG VIAL IVP SCH (09:22)
[2023-12-05] MEDS: Floranex 1 GM Packet PO SCH (09:23)
[2023-12-05] MEDS: D5 1/2 NS w/20 mEq KCL 1,000 ML IV PRN (09:23)
[2023-12-05] MEDS ORDERED: Sodium Bicarbonate 0.5 MEQ/ML SDV 10 ML ONE (09:37)
[2023-12-05] MEDS ORDERED: Lidocaine 1% PF 5 ML VIAL ONE (09:37)
[2023-12-05 10:00] LABS: Anion Gap 17 mmol/L (10-20); BUN (Urea Nitrogen) 62 mg/dL (7.0-18.7); Calc. Creatinine Clearance 31 mL/min (70-130); Carbon Dioxide 25 mmol/L (22-29); Chloride 95 mmol/L (98-107); Estimated GFR 15; Glucose 349 mg/dL (70-105); Potassium 4.5 mmol/L (3.5-5.1); Sodium 132 mmol/L (136-145)
[2023-12-05 12:33] LABS: Anion Gap 15 mmol/L (10-20); BUN (Urea Nitrogen) 64 mg/dL (7.0-18.7); Calc. Creatinine Clearance 32 mL/min (70-130); Calcium 8.1 mg/dL (7.8-10.44); Carbon Dioxide 25 mmol/L (22-29); Chloride 96 mmol/L (98-107); Estimated GFR 15; Glucose 353 mg/dL (70-105); Potassium 4.4 mmol/L (3.5-5.1); Sodium 132 mmol/L (136-145)
[2023-12-05 17:03] LABS: Anion Gap 16 mmol/L (10-20); BUN (Urea Nitrogen) 63 mg/dL (7.0-18.7); Calc. Creatinine Clearance 30 mL/min (70-130); Calcium 7.9 mg/dL (7.8-10.44); Carbon Dioxide 25 mmol/L (22-29); Chloride 98 mmol/L (98-107); Estimated GFR 14; Glucose 233 mg/dL (70-105); Potassium 4.5 mmol/L (3.5-5.1); Sodium 134 mmol/L (136-145)
[2023-12-05 17:18] LABS: Creatinine, Urine 119.96 mg/dL (47-110)
[2023-12-06 03:51] LABS: Anion Gap 17 mmol/L (10-20); BUN (Urea Nitrogen) 64 mg/dL (7.0-18.7); Calc. Creatinine Clearance 32 mL/min (70-130); Carbon Dioxide 22 mmol/L (22-29); Chloride 99 mmol/L (98-107); Estimated GFR 15; Glucose 167 mg/dL (70-105); Potassium 4.8 mmol/L (3.5-5.1); Sodium 133 mmol/L (136-145)
[2023-12-06 04:10] LABS: Hematocrit 21.3 % (36.0-47.0); Hemoglobin 6.7 g/dL (12.0-16.0); Mean Corpuscular HGB CONC 31.5 g/dL (32.0-36.0); Mean Corpuscular Hemoglobin 28.3 pg (27.0-31.0); Mean Corpuscular Volume 89.9 fL (78.0-98.0); Platelet Count 29 10x3/uL (130-400); RBC Distribution Width 23.4 % (11.5-14.5); Red Blood Cell (RBC) Count 2.37 mill/uL (4.20-5.40)
[2023-12-06 05:37] LABS: Anisocytosis SLIGHT = 6-15 cells HPF (0-5); Band 1 % (5-11); Hypochromia SLIGHT = 6-15 cells HPF (0-5); Large Platelets 2.9 % (0-5); Lymphocytes 3 % (21-51); Monocytes 6 % (0-10); Neutrophil 90 % (42-75); Nucleated RBC (Manual Ct) 5 % (0); Platelet Adequacy Comment Platelets Decreased; Polychromasia SLIGHT = 2-3 cells HPF (0-2); Smudge Cells 10.8 %; Tear Drops SLIGHT = 2-5 cells HPF (0-1)
[2023-12-06] MEDS: methylPREDNISolone Sod Succ 40 MG VIAL IVP SCH (09:12)
[2023-12-06 09:44] LABS: Albumin 2.5 g/dL (3.5-5.0); Magnesium 1.8 mg/dL (1.6-2.6); Phosphorus 5.8 mg/dL (2.3-4.7)
[2023-12-06] MEDS: Albumin 25% 25 GM (100 mL) BOT IVPB SCH (11:52)
[2023-12-06] MEDS: traMADol HCl 50 MG TAB PO PRN ×2 (11:57→20:08)
[2023-12-06] MEDS: Insulin Glargine 30 UNITS/0.3 ML VIAL SC SCH (20:06)
[2023-12-06] MEDS: Ciprofloxacin 0.2% Otic (0.25ML CONTAINER) R EAR SCH (20:06)
[2023-12-06] MEDS: Insulin Lispro 100 UNIT/ML 10 ML VIAL SC PRN (20:12)
[2023-12-07 06:29] LABS: ALT (SGPT) 17 U/L (8-55); AST (SGOT) 11 U/L (5-34); Albumin 3.4 g/dL (3.5-5.0); Alkaline Phosphatase 102 U/L (40-110); Anion Gap 17 mmol/L (10-20); BUN (Urea Nitrogen) 77 mg/dL (7.0-18.7); Calc. Creatinine Clearance 36 mL/min (70-130); Calcium 8.5 mg/dL (7.8-10.44); Carbon Dioxide 22 mmol/L (22-29); Chloride 100 mmol/L (98-107); Estimated GFR 15; Globulin 1.8 g/dL (2.4-3.5); Glucose 574 mg/dL (70-105); Potassium 5.7 mmol/L (3.5-5.1); Protein, Total 5.2 g/dL (6.0-8.3); Sodium 133 mmol/L (136-145)
[2023-12-07 07:45] LABS: Hematocrit 21.4 % (36.0-47.0); Hemoglobin 6.7 g/dL (12.0-16.0); Mean Corpuscular HGB CONC 31.3 g/dL (32.0-36.0); Mean Corpuscular Hemoglobin 28.4 pg (27.0-31.0); Mean Corpuscular Volume 90.7 fL (78.0-98.0); Mean Platelet Volume 10.9 fL (7.4-10.4); Platelet Count 29 10x3/uL (130-400); RBC Distribution Width 23.6 % (11.5-14.5); Red Blood Cell (RBC) Count 2.36 mill/uL (4.20-5.40)
[2023-12-07 08:00] LABS: Anion Gap 17 mmol/L (10-20); BUN (Urea Nitrogen) 77 mg/dL (7.0-18.7); Calc. Creatinine Clearance 37 mL/min (70-130); Calcium 8.5 mg/dL (7.8-10.44); Carbon Dioxide 21 mmol/L (22-29); Chloride 100 mmol/L (98-107); Estimated GFR 16; Glucose 560 mg/dL (70-105); Potassium 5.7 mmol/L (3.5-5.1); Sodium 132 mmol/L (136-145)
[2023-12-07] MEDS: FLU (Fluarix Triv) TS24-25(6MOS UP)/PF 45 MCG/0.5 ML Syringe IM ONE (08:11)
[2023-12-07 08:45] LABS: #Basophils Less than 0.03 10x3/uL (0.0-0.2); #Eosinophils Less than 0.03 10x3/uL (0.0-0.7); %Basophils 0.4 % (0.0-1.0); %Lymphocytes 5.1 % (21.0-51.0); %Monocytes 5.5 % (0.0-10.0); %Neutrophils 71.7 % (42.0-75.0); Ovalocytes MODERATE= 6-15 cells (100X) (0-1/hpf); Plasma Cells 0 % (0-0); Platelet Adequacy Comment Appears Decreased
[2023-12-07] MEDS: Sodium Bicarbonate 75 MEQ in Sodium Chloride 0.45% 1,000 ML IV SCH (12:27)
[2023-12-07] MEDS: Albumin 25% 25 GM (100 mL) BOT IVPB SCH (13:29)
[2023-12-07 17:05] LABS: Anion Gap 16 mmol/L (10-20); BUN (Urea Nitrogen) 75 mg/dL (7.0-18.7); Calc. Creatinine Clearance 38 mL/min (70-130); Calcium 8.7 mg/dL (7.8-10.44); Carbon Dioxide 22 mmol/L (22-29); Chloride 102 mmol/L (98-107); Estimated GFR 16; Glucose 516 mg/dL (70-105); Potassium 5.8 mmol/L (3.5-5.1); Sodium 134 mmol/L (136-145)
[2023-12-07] MEDS: Insulin Glargine 30 UNITS/0.3 ML VIAL SC SCH (21:20)
[2023-12-07] MEDS: Insulin Lispro 100 UNIT/ML 10 ML VIAL SC PRN (21:24)
[2023-12-08 04:40] LABS: Hematocrit 19.7 % (36.0-47.0); Hemoglobin 6.3 g/dL (12.0-16.0); Mean Corpuscular Hemoglobin 28.6 pg (27.0-31.0); Mean Corpuscular Volume 89.5 fL (78.0-98.0); Mean Platelet Volume 9.9 fL (7.4-10.4); Platelet Count 28 10x3/uL (130-400)
[2023-12-08 05:02] LABS: Anion Gap 16 mmol/L (10-20); BUN (Urea Nitrogen) 72 mg/dL (7.0-18.7); Carbon Dioxide 23 mmol/L (22-29); Chloride 103 mmol/L (98-107); Potassium 5.1 mmol/L (3.5-5.1); Sodium 137 mmol/L (136-145)
[2023-12-08 05:03] LABS: Calc. Creatinine Clearance 40 mL/min (70-130); Calcium 8.9 mg/dL (7.8-10.44); Estimated GFR 17; Glucose 330 mg/dL (70-105)
[2023-12-08 05:24] LABS: Anisocytosis SLIGHT = 6-15 cells HPF (0-5); Band 4 % (5-11); Hypochromia SLIGHT = 6-15 cells HPF (0-5); Lymphocytes 5 % (21-51); Microcytosis SLIGHT = 6-15 cells HPF (0-5); Monocytes 6 % (0-10); Neutrophil 85 % (42-75); Nucleated RBC (Manual Ct) 3 % (0); Platelet Adequacy Comment Significant Decrease; Polychromasia SLIGHT = 2-3 cells HPF (0-2); Tear Drops SLIGHT = 2-5 cells HPF (0-1)
[2023-12-08] MEDS: dilTIAZem CD 120 MG CAP PO SCH ×2 (10:32→20:32)
[2023-12-08 12:37] LABS: Glucose 268 mg/dL (70-105)
[2023-12-08] MEDS: Albumin 25% 25 GM (100 mL) BOT IVPB SCH (12:50)
[2023-12-08] MEDS: Sodium Bicarbonate 75 MEQ in Sodium Chloride 0.45% 1,000 ML IV SCH (13:45)
[2023-12-08] MEDS: hydrALAZINE 20 MG/ML VIAL SLOW IVP PRN (15:22)
[2023-12-08] MEDS: Furosemide 40 MG (4 mL) VIAL SLOW IVP SCH (15:22)
[2023-12-08] MEDS: ALPRAZolam 0.25 MG TAB PO SCH (16:11)
[2023-12-08] MEDS: Labetalol HCl 100 MG/20 ML VIAL SLOW IVP PRN (16:11)
[2023-12-08 16:45] LABS: Glucose 245 mg/dL (70-105)
[2023-12-08] MEDS: Labetalol HCl 100 MG/20 ML VIAL SLOW IVP SCH (18:27)
[2023-12-08] MEDS: Insulin Glargine 30 UNITS/0.3 ML VIAL SC SCH (20:33)
[2023-12-09 01:20] LABS: Glucose 147 mg/dL (70-105)
[2023-12-09] MEDS ORDERED: ALPRAZolam 0.25 MG TAB PO SCH (03:00)
[2023-12-09] MEDS: Lorazepam 2 MG/ML VIAL SLOW IVP SCH (03:25)
[2023-12-09 03:57] LABS: Anion Gap 16 mmol/L (10-20); BUN (Urea Nitrogen) 70 mg/dL (7.0-18.7); Calc. Creatinine Clearance 47 mL/min (70-130); Calcium 9.3 mg/dL (7.8-10.44); Carbon Dioxide 29 mmol/L (22-29); Chloride 100 mmol/L (98-107); Estimated GFR 22; Glucose 181 mg/dL (70-105); Potassium 5.5 mmol/L (3.5-5.1); Sodium 139 mmol/L (136-145)
[2023-12-09 04:04] LABS: Hematocrit 21.1 % (36.0-47.0); Hemoglobin 6.4 g/dL (12.0-16.0); Mean Corpuscular HGB CONC 30.3 g/dL (32.0-36.0); Mean Corpuscular Hemoglobin 28.1 pg (27.0-31.0); Mean Corpuscular Volume 92.5 fL (78.0-98.0); Mean Platelet Volume 10.8 fL (7.4-10.4); Platelet Count 33 10x3/uL (130-400); RBC Distribution Width 22.9 % (11.5-14.5); Red Blood Cell (RBC) Count 2.28 mill/uL (4.20-5.40)
[2023-12-09 04:37] LABS: Anisocytosis SLIGHT = 6-15 cells HPF (0-5); Band 10 % (5-11); Lymphocytes 4 % (21-51); Macrocytosis SLIGHT = 6-15 cells HPF (0-5); Monocytes 1 % (0-10); Neutrophil 85 % (42-75); Nucleated RBC (Manual Ct) 1 % (0); Ovalocytes SLIGHT = 2-5 cells HPF (0-1); Platelet Adequacy Comment Significant Decrease; Polychromasia SLIGHT = 2-3 cells HPF (0-2); Stomatocytes SLIGHT = 2-5 cells HPF (0-1)
[2023-12-09] MEDS: ALPRAZolam 0.25 MG TAB PO SCH (05:26)
[2023-12-09] MEDS: Pantoprazole DR 40 MG TAB PO SCH (08:37)
[2023-12-09] MEDS: ALPRAZolam 0.25 MG TAB PO PRN (08:37)
[2023-12-09 08:52] LABS: Phosphorus 4.7 mg/dL (2.3-4.7)
[2023-12-09 09:10] LABS: Actual Bicarbonate (HCO3v) 31.9 mEq/L (22-28); Calcium, Ionized (venous) 1.16 mmol/L (1.16-1.32); Chloride (VBG) 99 mmol/L (98-106); Hematocrit-VBG 22 % (36.0-47.0); Hemoglobin (Hb) 7.5 g/dL (11.7-15.5); Potassium (VBG) 5.87 mmol/L (3.70-5.30); pH (venous) 7.317 (7.32-7.43)
[2023-12-09] MEDS: Dexmedetomidine In 0.9 % NaCl 100 ML IV SCH (10:37)
[2023-12-09] MEDS: Furosemide 40 MG (4 mL) VIAL SLOW IVP SCH (11:48)
[2023-12-09] MEDS ORDERED: Cefepime 2 GM in Sodium Chloride 0.9% 100 ML IVPB SCH (13:00)
[2023-12-09 13:47] LABS: Actual Bicarbonate (HCO3a) 29.1 mEq/L (22-28); Base Excess (BEa) 2.4 mEq/L (-2.0 to +3.0); CO2 Tension 59.1 mmHg (35.0-45.0); Calcium, Ionized (arterial) 1.17 mmol/L (1.12-1.30); Carboxyhemoglobin (COHb) 1.4 gm% (0.0-3.0); Hematocrit-ABG 22 % (36.0-47.0); Hemoglobin (Hb) 7.4 g/dL (12.0-16.0); O2 Tension (PaO2), arterial 60.6 mmHg (80.0-100.0); Potassium - ABG Lab 5.95 mmol/L (3.70-5.30)
[2023-12-09] MEDS: Vancomycin (BATCH) 2 GM in Premix 1 BAG IVPB SCH (14:07)
[2023-12-09] MEDS: Meropenem 1 GM in Sodium Chloride 0.9% 100 ML IVPB SCH ×2 (14:27→21:05)
[2023-12-09] MEDS: LOKELMA 10 GM PACKET PO SCH (14:31)
[2023-12-09 14:36] LABS: Puncture Site Right Radial artery
[2023-12-09 14:37] LABS: ALV-art Gradient 293.325 mmHg (0-20)
[2023-12-09] MEDS: Budesonide 0.5 MG/2 ML NEB INH SCH (19:02)
[2023-12-10 05:19] LABS: Hematocrit 21.2 % (36.0-47.0); Hemoglobin 6.8 g/dL (12.0-16.0); Mean Corpuscular HGB CONC 32.1 g/dL (32.0-36.0); Mean Corpuscular Volume 87.2 fL (78.0-98.0); Platelet Count 23 10x3/uL (130-400); Red Blood Cell (RBC) Count 2.43 mill/uL (4.20-5.40)
[2023-12-10 05:36] LABS: Vancomycin, Random 31.8 ug/mL (See Comment)
[2023-12-10 05:49] LABS: Anisocytosis SLIGHT = 6-15 cells HPF (0-5); Band 4 % (5-11); Hypochromia SLIGHT = 6-15 cells HPF (0-5); Lymphocytes 4 % (21-51); Metamyelocyte 2 % (0-0); Microcytosis SLIGHT = 6-15 cells HPF (0-5); Monocytes 4 % (0-10); Myelocyte 1 % (0-0); Neutrophil 85 % (42-75); Platelet Adequacy Comment Significant Decrease; Polychromasia SLIGHT = 2-3 cells HPF (0-2); Smudge Cells 6.1 %
[2023-12-10 05:51] LABS: Anion Gap 17 mmol/L (10-20); BUN (Urea Nitrogen) 81 mg/dL (7.0-18.7); Calc. Creatinine Clearance 44 mL/min (70-130); Calcium 9.3 mg/dL (7.8-10.44); Carbon Dioxide 29 mmol/L (22-29); Chloride 103 mmol/L (98-107); Estimated GFR 21; Glucose 210 mg/dL (70-105); Potassium 5.6 mmol/L (3.5-5.1); Sodium 143 mmol/L (136-145)
[2023-12-10] MEDS: LOKELMA 10 GM PACKET PO SCH (09:21)
[2023-12-10] MEDS: methylPREDNISolone Sod Succ 40 MG VIAL IVP SCH (09:22)
[2023-12-10 12:32] LABS: Hematocrit 25.2 % (36.0-47.0); Hemoglobin 8.2 g/dL (12.0-16.0)
[2023-12-10] MEDS ORDERED: Vancomycin 1 GM in Premix 1 BAG IVPB SCH (13:00)
[2023-12-10 14:18] LABS: Fungitell Beta (1,3) D-Glucan Negative (.)
[2023-12-10] MEDS: Insulin Glargine 30 UNITS/0.3 ML VIAL SC SCH (21:18)
[2023-12-11 04:59] LABS: Anion Gap 13 mmol/L (10-20); BUN (Urea Nitrogen) 85 mg/dL (7.0-18.7); Calc. Creatinine Clearance 48 mL/min (70-130); Calcium 9.4 mg/dL (7.8-10.44); Carbon Dioxide 31 mmol/L (22-29); Chloride 105 mmol/L (98-107); Estimated GFR 23; Glucose 196 mg/dL (70-105); Potassium 5.4 mmol/L (3.5-5.1); Sodium 144 mmol/L (136-145)
[2023-12-11 07:19] LABS: Hematocrit 26.5 % (36.0-47.0); Hemoglobin 8.4 g/dL (12.0-16.0); Mean Corpuscular HGB CONC 31.7 g/dL (32.0-36.0); Mean Corpuscular Volume 88.3 fL (78.0-98.0); Mean Platelet Volume 10.6 fL (7.4-10.4); Platelet Count 27 10x3/uL (130-400); RBC Distribution Width 22.4 % (11.5-14.5)
[2023-12-11] MEDS: LOKELMA 10 GM PACKET PO SCH (08:24)
[2023-12-11 08:51] LABS: Lymphocytes 8 % (21-51); Microcytosis SLIGHT = 6-15 cells HPF (0-5); Monocytes 3 % (0-10); Neutrophil 89 % (42-75); Platelet Adequacy Comment Significant Decrease
[2023-12-11] MEDS: dilTIAZem CD 180 MG CAP PO SCH (09:04)
[2023-12-11] MEDS: NIFEdipine XL 30 MG ER.TAB PO SCH (13:35)
[2023-12-11 17:13] LABS: A. flavus Negative (Neg:<1:1); A. fumigatus Negative (Neg:<1:1); A. niger Negative (Neg:<1:1)
[2023-12-11] MEDS ORDERED: Vancomycin (BATCH) 1.25 GM in Premix 1 BAG IVPB SCH (18:00)
[2023-12-11] MEDS: Vancomycin (BATCH) 1.25 GM in Premix 1 BAG IVPB SCH (18:12)
[2023-12-12] MEDS ORDERED: Senokot S 8.6-50 MG TAB PO PRN (03:12)
[2023-12-12 05:02] LABS: Vancomycin, Random 26.9 ug/mL (See Comment)
[2023-12-12 05:08] LABS: Anion Gap 15 mmol/L (10-20); BUN (Urea Nitrogen) 79 mg/dL (7.0-18.7); Calc. Creatinine Clearance 51 mL/min (70-130); Calcium 9.4 mg/dL (7.8-10.44); Carbon Dioxide 30 mmol/L (22-29); Chloride 105 mmol/L (98-107); Estimated GFR 26; Glucose 137 mg/dL (70-105); Potassium 5.4 mmol/L (3.5-5.1); Sodium 145 mmol/L (136-145)
[2023-12-12 05:14] LABS: Hematocrit 30.2 % (36.0-47.0); Hemoglobin 9.4 g/dL (12.0-16.0); Mean Corpuscular HGB CONC 31.1 g/dL (32.0-36.0); Mean Corpuscular Hemoglobin 27.2 pg (27.0-31.0); Mean Corpuscular Volume 87.3 fL (78.0-98.0); Platelet Count 33 10x3/uL (130-400); RBC Distribution Width 21.4 % (11.5-14.5); Red Blood Cell (RBC) Count 3.46 mill/uL (4.20-5.40)
[2023-12-12 05:43] LABS: Anisocytosis SLIGHT = 6-15 cells HPF (0-5); Band 5 % (5-11); Hypochromia SLIGHT = 6-15 cells HPF (0-5); Lymphocytes 6 % (21-51); Metamyelocyte 2 % (0-0); Monocytes 2 % (0-10); Myelocyte 2 % (0-0); Neutrophil 83 % (42-75); Nucleated RBC (Manual Ct) 2 % (0); Platelet Adequacy Comment Significant Decrease; Polychromasia SLIGHT = 2-3 cells HPF (0-2)
[2023-12-12] MEDS ORDERED: NIFEdipine XL 30 MG ER.TAB PO STA (07:43)
[2023-12-12] MEDS ORDERED: NIFEdipine XL 30 MG ER.TAB PO SCH (09:00)
[2023-12-12] MEDS: predniSONE 20 MG TAB PO SCH (09:09)
[2023-12-12] MEDS: NIFEdipine XL 60 MG ER.TAB PO SCH (09:10)
[2023-12-12] MEDS: Polyethylene Glycol 3350 17 GM Packet PO SCH (09:10)
[2023-12-12] MEDS: Calcium Carbonate 500 MG ChewTAB PO SCH (16:33)
[2023-12-12] MEDS: Morphine 2 MG/ML VIAL SLOW IVP SCH (16:33)
[2023-12-13 01:04] LABS: Actual Bicarbonate (HCO3v) 24.8 mEq/L (22-28); Base Excess 2.1 mEq/L (-2.0 to +3.0); Calcium, Ionized (venous) 1.07 mmol/L (1.16-1.32); Chloride (VBG) 97 mmol/L (98-106); Hematocrit-VBG 29 % (36.0-47.0); Hemoglobin (Hb) 9.8 g/dL (11.7-15.5); pH (venous) 7.511 (7.32-7.43)
[2023-12-13 02:03] LABS: Sodium 134 mmol/L (136-145)
[2023-12-13 02:05] LABS: BUN (Urea Nitrogen) 90 mg/dL (7.0-18.7); Calc. Creatinine Clearance 42 mL/min (70-130); Carbon Dioxide 24 mmol/L (22-29); Chloride 101 mmol/L (98-107); Estimated GFR 21; Potassium 6.3 mmol/L (3.5-5.1)
[2023-12-13 02:06] LABS: Calcium 8.9 mg/dL (7.6-10.4); Glucose 571 mg/dL (70-105)
[2023-12-13 02:08] LABS: Anion Gap 15 mmol/L (10-20)
[2023-12-13] MEDS: CALCIUM GLUC 1 GM/NS 50 ML 1 GM in Premix 1 BAG IVPB SCH (02:30)
[2023-12-13] MEDS: Insulin Regular, Human 100 UNIT/ML 10 ML VIAL IVP SCH ×2 (02:30→09:32)
[2023-12-13] MEDS: LOKELMA 10 GM PACKET PO SCH (02:30)
[2023-12-13] MEDS: Albuterol 1.25 MG (3 mL) NEB NEB SCH (02:59)
[2023-12-13 04:51] LABS: Anion Gap 16 mmol/L (10-20); BUN (Urea Nitrogen) 95 mg/dL (7.0-18.7); Calc. Creatinine Clearance 39 mL/min (70-130); Calcium 9.2 mg/dL (7.8-10.44); Carbon Dioxide 26 mmol/L (22-29); Chloride 100 mmol/L (98-107); Estimated GFR 19; Glucose 497 mg/dL (70-105); Potassium 5.8 mmol/L (3.5-5.1); Sodium 136 mmol/L (136-145)
[2023-12-13] MEDS: Albuterol 2.5 MG (3 mL) NEB ONE (07:47)
[2023-12-13] MEDS ORDERED: Lidocaine 2% Viscous 100 ML BOTTLE SSP SCH (08:30)
[2023-12-13] MEDS ORDERED: Insulin Glargine 30 UNITS/0.3 ML VIAL SC SCH ×2 (09:00)
[2023-12-13 09:05] LABS: Anion Gap 18 mmol/L (10-20); BUN (Urea Nitrogen) 97 mg/dL (7.0-18.7); Calc. Creatinine Clearance 38 mL/min (70-130); Calcium 9.4 mg/dL (7.8-10.44); Carbon Dioxide 26 mmol/L (22-29); Chloride 99 mmol/L (98-107); Estimated GFR 18; Glucose 502 mg/dL (70-105); Potassium 5.6 mmol/L (3.5-5.1); Sodium 137 mmol/L (136-145)
[2023-12-13] MEDS: INSULIN REGULAR IN 0.9 % NACL 100 ML IVPB SCH (09:24)
[2023-12-13] MEDS: Lactated Ringer's 1,000 ML IV SCH (09:28)
[2023-12-13] MEDS: Sodium Chloride 0.9% 1,000 ML IV SCH (09:30)
[2023-12-13 09:45] LABS: Vancomycin, Random 17.2 ug/mL (See Comment)
[2023-12-13] MEDS: MAGIC MOUTH WASH W/NYSTATIN SUSP 10 ML UDCUP SSP PRN (10:46)
[2023-12-13] MEDS ORDERED: Vancomycin Dose by Levels Sliding Scale (Wt 71-99) FS SCH (11:00)
[2023-12-13] MEDS: Vancomycin (BATCH) 1.25 GM in Premix 1 BAG IVPB SCH (11:30)
[2023-12-13] MEDS: Vancomycin HCl 500 MG in Sodium Chloride 0.9% 100 ML IV SCH (12:13)
[2023-12-13] MEDS: cefTRIAXone\\ROCEPHIN 2 GM in Sodium Chloride 0.9% 100 ML IVPB SCH (15:05)
[2023-12-13] MEDS: Activase 2 MG VIAL CATH SCH (17:02)
[2023-12-13] MEDS: Sterile Water 10 ML VIAL IVP SCH (17:03)
[2023-12-13] MEDS: valACYclovir 500 MG TAB PO SCH (17:19)
[2023-12-13 17:22] LABS: Albumin 3.4 g/dL (3.5-5.0); Anion Gap 17 mmol/L (10-20); BUN (Urea Nitrogen) 98 mg/dL (7.0-18.7); BUN/Creatinine Ratio 30.91; Calc. Creatinine Clearance 39 mL/min (70-130); Calcium 9.4 mg/dL (7.8-10.44); Carbon Dioxide 26 mmol/L (22-29); Chloride 104 mmol/L (98-107); Estimated GFR 19; Glucose 112 mg/dL (70-105); Magnesium 1.7 mg/dL (1.6-2.6); Potassium 5.6 mmol/L (3.5-5.1); Sodium 141 mmol/L (136-145)
[2023-12-13 17:32] LABS: Anion Gap 18 mmol/L (10-20); BUN (Urea Nitrogen) 97 mg/dL (7.0-18.7); Calc. Creatinine Clearance 39 mL/min (70-130); Calcium 9.5 mg/dL (7.8-10.44); Carbon Dioxide 25 mmol/L (22-29); Chloride 104 mmol/L (98-107); Estimated GFR 19; Glucose 112 mg/dL (70-105); Potassium 5.6 mmol/L (3.5-5.1); Sodium 141 mmol/L (136-145)
[2023-12-13 19:03] LABS: Bilirubin Negative (Negative); Blood, Urine 3+ (Negative); Clarity Clear (Clear); Glucose, Urine (Dipstick) 200 mg/dL (Negative); Ketone, Urine Negative (Negative); Leukocyte Negative Leu/uL (Negative); Nitrite Negative (Negative); Protein, Urine (Dipstick) 600 mg/dL (Neg-Trace); Specific Gravity, Urine 1.016 (1.002-1.036); Squamous Epithelial 0-3 HPF (0-3); Urobilinogen Normal mg/dL (Less than 2); pH, Urine 6.5 (5.0-9.0)
[2023-12-13 19:25] LABS: Creatinine, Urine 74.69 mg/dL (47-110)
[2023-12-13 19:27] LABS: Bacteria/HPF 1+ HPF (None Seen)
[2023-12-13 19:31] LABS: Transitional Epithelial 0-3 HPF (None Seen)
[2023-12-13] MEDS: Insulin Lispro 100 UNIT/ML 10 ML VIAL SC PRN (20:38)
[2023-12-14 05:18] LABS: Anion Gap 15 mmol/L (10-20); BUN (Urea Nitrogen) 98 mg/dL (7.0-18.7); Calc. Creatinine Clearance 38 mL/min (70-130); Calcium 8.7 mg/dL (7.8-10.44); Carbon Dioxide 26 mmol/L (22-29); Chloride 104 mmol/L (98-107); Estimated GFR 18; Glucose 249 mg/dL (70-105); Potassium 5.7 mmol/L (3.5-5.1); Sodium 139 mmol/L (136-145)
[2023-12-14] MEDS: Insulin Glargine 30 UNITS/0.3 ML VIAL SC SCH (08:23)
[2023-12-14 12:38] LABS: Vancomycin, Trough 12.9 ug/mL
[2023-12-14] MEDS: Albumin 25% 25 GM (100 mL) BOT IVPB SCH (13:09)
[2023-12-14] MEDS: Vancomycin 1 GM in Premix 1 BAG IVPB SCH (13:11)
[2023-12-14] MEDS ORDERED: Vancomycin Dose by Levels Sliding Scale (Wt > 99) FS SCH (13:15)
[2023-12-15 05:33] LABS: Hematocrit 22.8 % (36.0-47.0); Hemoglobin 6.9 g/dL (12.0-16.0); Mean Corpuscular HGB CONC 30.3 g/dL (32.0-36.0); Mean Corpuscular Volume 92.7 fL (78.0-98.0); Platelet Count 22 10x3/uL (130-400); RBC Distribution Width 20.3 % (11.5-14.5); Red Blood Cell (RBC) Count 2.46 mill/uL (4.20-5.40)
[2023-12-15 05:43] LABS: Anion Gap 18 mmol/L (10-20); BUN (Urea Nitrogen) 96 mg/dL (7.0-18.7); Calc. Creatinine Clearance 36 mL/min (70-130); Calcium 8.8 mg/dL (7.8-10.44); Carbon Dioxide 23 mmol/L (22-29); Chloride 106 mmol/L (98-107); Estimated GFR 16; Glucose 225 mg/dL (70-105); Potassium 5.6 mmol/L (3.5-5.1); Sodium 141 mmol/L (136-145)
[2023-12-15 05:55] LABS: Anisocytosis SLIGHT = 6-15 cells HPF (0-5); Band 2 % (5-11); Hypochromia SLIGHT = 6-15 cells HPF (0-5); Lymphocytes 5 % (21-51); Monocytes 3 % (0-10); Neutrophil 90 % (42-75); Ovalocytes SLIGHT = 2-5 cells HPF (0-1); Platelet Adequacy Comment Significant Decrease; Polychromasia SLIGHT = 2-3 cells HPF (0-2); Toxic Granulation SLIGHT
[2023-12-15] MEDS ORDERED: Epoetin (ESRD) 20,000 UNITS/ML MDV SC SCH (10:00)
[2023-12-15] MEDS: Furosemide 40 MG (4 mL) VIAL SLOW IVP SCH (10:09)
[2023-12-15] MEDS: predniSONE 20 MG TAB PO SCH (10:10)
[2023-12-15] MEDS: EPOETIN ALFA-EPBX (ESRD) 10,000 UNITS/ML VIAL SC SCH (13:04)
[2023-12-15] MEDS: HumaLOG 300 UNITS/3 ML VIAL SC SCH (13:11)
[2023-12-15 14:53] LABS: Vancomycin, Trough 21.3 ug/mL
[2023-12-15] MEDS: ALPRAZolam 0.25 MG TAB PO PRN (15:53)
[2023-12-15] MEDS: Dextrose 50% Abboject 50 ML SYRINGE SLOW IVP PRN (16:09)
[2023-12-15] MEDS: Dextrose 5 % And 0.9 % NaCl 1,000 ML IV SCH (23:01)
[2023-12-16 01:43] LABS: Actual Bicarbonate (HCO3v) 23.6 mEq/L (22-28); Base Excess -1.6 mEq/L (-2.0 to +3.0); Calcium, Ionized (venous) 1.08 mmol/L (1.16-1.32); Chloride (VBG) 108 mmol/L (98-106); Hematocrit-VBG 24 % (36.0-47.0); Hemoglobin (Hb) 8.3 g/dL (11.7-15.5); Potassium (VBG) 5.25 mmol/L (3.70-5.30); pH (venous) 7.366 (7.32-7.43)
[2023-12-16 01:57] LABS: #Basophils Less than 0.03 10x3/uL (0.0-0.2); #Eosinophils Less than 0.03 10x3/uL (0.0-0.7); %Basophils 0.2 % (0.0-1.0); %Lymphocytes 7.3 % (21.0-51.0); %Monocytes 2.3 % (0.0-10.0); %Neutrophils 85.8 % (42.0-75.0); Hematocrit 24.4 % (36.0-47.0); Hemoglobin 7.5 g/dL (12.0-16.0); Mean Corpuscular HGB CONC 30.7 g/dL (32.0-36.0); Mean Corpuscular Hemoglobin 28.4 pg (27.0-31.0); Mean Corpuscular Volume 92.4 fL (78.0-98.0); Platelet Count 18 10x3/uL (130-400); RBC Distribution Width 20.2 % (11.5-14.5); Red Blood Cell (RBC) Count 2.64 mill/uL (4.20-5.40)
[2023-12-16 02:00] LABS: Glucose POC Confirmation 54 mg/dL (70-105)
[2023-12-16] MEDS: Dextrose 10% in Water 1,000 ML IV SCH (02:20)
[2023-12-16 02:50] LABS: BUN (Urea Nitrogen) 89 mg/dL (7.0-18.7); Calc. Creatinine Clearance 40 mL/min (70-130); Carbon Dioxide 23 mmol/L (22-29); Chloride 111 mmol/L (98-107); Estimated GFR 19; Glucose 54 mg/dL (70-105); Potassium 5.3 mmol/L (3.5-5.1); Sodium 144 mmol/L (136-145)
[2023-12-16 02:51] LABS: Calcium 8.2 mg/dL (7.6-10.4)
[2023-12-16 02:52] LABS: Anion Gap 15 mmol/L (10-20)
[2023-12-16] MEDS: Lorazepam 2 MG/ML VIAL SLOW IVP PRN (04:11)
[2023-12-16 07:38] LABS: Phosphorus 5.1 mg/dL (2.3-4.7)
[2023-12-16] MEDS: Insulin Glargine 30 UNITS/0.3 ML VIAL SC SCH (08:11)
[2023-12-16] MEDS: Furosemide 40 MG (4 mL) VIAL SLOW IVP SCH (11:15)
[2023-12-16 14:58] LABS: Albumin 3.2 g/dL (3.5-5.0); Magnesium 1.4 mg/dL (1.6-2.6)
[2023-12-16] MEDS ORDERED: Dextrose 10% in Water 1,000 ML IV SCH (22:53)
[2023-12-17] MEDS: Insulin Lispro 100 UNIT/ML 10 ML VIAL SC PRN (03:24)
[2023-12-17 05:24] LABS: Anion Gap 16 mmol/L (10-20); BUN (Urea Nitrogen) 87 mg/dL (7.0-18.7); Calc. Creatinine Clearance 41 mL/min (70-130); Calcium 8.6 mg/dL (7.8-10.44); Carbon Dioxide 22 mmol/L (22-29); Chloride 108 mmol/L (98-107); Estimated GFR 19; Glucose 422 mg/dL (70-105); Sodium 140 mmol/L (136-145)
[2023-12-17] MEDS: Sodium Polystyrene Sulfonate 15 GM (60 mL) BOT PO SCH (06:18)
[2023-12-17] MEDS: Dextrose 50% Abboject 50 ML SYRINGE SLOW IVP SCH (08:48)
[2023-12-17] MEDS: Insulin Regular, Human 100 UNIT/ML 10 ML VIAL IVP SCH (08:51)
[2023-12-17] MEDS: Furosemide 40 MG (4 mL) VIAL SLOW IVP SCH (09:32)
[2023-12-17 10:23] LABS: Hematocrit 23.7 % (36.0-47.0); Hemoglobin 7.4 g/dL (12.0-16.0); Mean Corpuscular HGB CONC 31.2 g/dL (32.0-36.0); Mean Corpuscular Hemoglobin 28.7 pg (27.0-31.0); Mean Corpuscular Volume 91.9 fL (78.0-98.0); Platelet Count 17 10x3/uL (130-400); RBC Distribution Width 19.2 % (11.5-14.5); Red Blood Cell (RBC) Count 2.58 mill/uL (4.20-5.40)
[2023-12-17 10:45] LABS: Anisocytosis SLIGHT = 6-15 cells HPF (0-5); Lymphocytes 9 % (21-51); Microcytosis SLIGHT = 6-15 cells HPF (0-5); Monocytes 4 % (0-10); Neutrophil 87 % (42-75); Platelet Adequacy Comment Significant Decrease; Polychromasia SLIGHT = 2-3 cells HPF (0-2)
[2023-12-17 17:27] LABS: Anion Gap 16 mmol/L (10-20); BUN (Urea Nitrogen) 90 mg/dL (7.0-18.7); Calc. Creatinine Clearance 40 mL/min (70-130); Calcium 8.7 mg/dL (7.8-10.44); Carbon Dioxide 23 mmol/L (22-29); Chloride 106 mmol/L (98-107); Estimated GFR 18; Glucose 618 mg/dL (70-105); Sodium 140 mmol/L (136-145)
[2023-12-18 06:10] LABS: #Basophils Less than 0.03 10x3/uL (0.0-0.2); #Eosinophils Less than 0.03 10x3/uL (0.0-0.7); %Lymphocytes 6.3 % (21.0-51.0); %Monocytes 3.7 % (0.0-10.0); %Neutrophils 87.4 % (42.0-75.0); Hematocrit 19.5 % (36.0-47.0); Hemoglobin 6.2 g/dL (12.0-16.0); Mean Corpuscular HGB CONC 31.8 g/dL (32.0-36.0); Mean Corpuscular Hemoglobin 28.6 pg (27.0-31.0); Mean Corpuscular Volume 89.9 fL (78.0-98.0); Mean Platelet Volume 12.8 fL (7.4-10.4); Platelet Count 26 10x3/uL (130-400); Red Blood Cell (RBC) Count 2.17 mill/uL (4.20-5.40)
[2023-12-18 06:28] LABS: Anion Gap 15 mmol/L (10-20); BUN (Urea Nitrogen) 85 mg/dL (7.0-18.7); Calc. Creatinine Clearance 44 mL/min (70-130); Calcium 8.7 mg/dL (7.8-10.44); Carbon Dioxide 24 mmol/L (22-29); Chloride 106 mmol/L (98-107); Estimated GFR 20; Glucose 410 mg/dL (70-105); Potassium 4.6 mmol/L (3.5-5.1); Sodium 140 mmol/L (136-145)
[2023-12-18] MEDS: dilTIAZem CD 240 MG CAP PO SCH (09:41)
[2023-12-18 09:50] LABS: Glucose 262 mg/dL (70-105)
[2023-12-18] MEDS: Insulin Lispro 100 UNIT/ML 10 ML VIAL SC PRN (12:03)
[2023-12-18] MEDS: Arformoterol 15 MCG/2 ML NEB NEB SCH (18:47)
[2023-12-18 20:01] LABS: Hemoglobin 8.3 g/dL (12.0-16.0); Mean Corpuscular HGB CONC 31.9 g/dL (32.0-36.0); Mean Corpuscular Hemoglobin 28.6 pg (27.0-31.0); Mean Corpuscular Volume 89.7 fL (78.0-98.0); Platelet Count 31 10x3/uL (130-400); RBC Distribution Width 18.3 % (11.5-14.5)
[2023-12-18 20:05] LABS: Glucose 412 mg/dL (70-105)
[2023-12-18] MEDS: Insulin Glargine 30 UNITS/0.3 ML VIAL SC SCH (20:49)
[2023-12-18 22:07] LABS: Glucose 482 mg/dL (70-105)
[2023-12-19 04:31] LABS: #Basophils Less than 0.03 10x3/uL (0.0-0.2); #Eosinophils Less than 0.03 10x3/uL (0.0-0.7); %Lymphocytes 10.5 % (21.0-51.0); %Monocytes 4.5 % (0.0-10.0); %Neutrophils 82.3 % (42.0-75.0); Hematocrit 23.4 % (36.0-47.0); Hemoglobin 7.6 g/dL (12.0-16.0); Mean Corpuscular HGB CONC 32.5 g/dL (32.0-36.0); Mean Corpuscular Hemoglobin 28.6 pg (27.0-31.0); Mean Platelet Volume 12.1 fL (7.4-10.4); Platelet Count 26 10x3/uL (130-400); RBC Distribution Width 18.7 % (11.5-14.5); Red Blood Cell (RBC) Count 2.66 mill/uL (4.20-5.40)
[2023-12-19 04:40] LABS: Anion Gap 14 mmol/L (10-20); BUN (Urea Nitrogen) 73 mg/dL (7.0-18.7); Calc. Creatinine Clearance 44 mL/min (70-130); Calcium 8.3 mg/dL (7.8-10.44); Carbon Dioxide 23 mmol/L (22-29); Chloride 110 mmol/L (98-107); Estimated GFR 23; Glucose 248 mg/dL (70-105); Potassium 4.5 mmol/L (3.5-5.1); Sodium 142 mmol/L (136-145)
[2023-12-19] MEDS: predniSONE 20 MG TAB PO SCH (09:46)
[2023-12-19] MEDS: traMADol HCl 50 MG TAB PO PRN (18:07)
[2023-12-19] MEDS: Insulin Glargine 30 UNITS/0.3 ML VIAL SC SCH (20:55)
[2023-12-20 05:37] LABS: Anion Gap 12 mmol/L (10-20); BUN (Urea Nitrogen) 66 mg/dL (7.0-18.7); Calc. Creatinine Clearance 48 mL/min (70-130); Calcium 8.3 mg/dL (7.8-10.44); Carbon Dioxide 24 mmol/L (22-29); Chloride 109 mmol/L (98-107); Estimated GFR 25; Glucose 260 mg/dL (70-105); Potassium 4.6 mmol/L (3.5-5.1); Sodium 140 mmol/L (136-145)
[2023-12-20 06:31] LABS: Hematocrit 23.7 % (36.0-47.0); Hemoglobin 7.6 g/dL (12.0-16.0); Mean Corpuscular HGB CONC 32.1 g/dL (32.0-36.0); Mean Corpuscular Hemoglobin 28.9 pg (27.0-31.0); Mean Corpuscular Volume 90.1 fL (78.0-98.0); Platelet Count 21 10x3/uL (130-400); RBC Distribution Width 18.3 % (11.5-14.5); Red Blood Cell (RBC) Count 2.63 mill/uL (4.20-5.40)
[2023-12-20 07:16] LABS: Band 3 % (5-11); Large Platelets 1.6 % (0-5); Lymphocytes 8 % (21-51); Monocytes 3 % (0-10); Neutrophil 86 % (42-75); Platelet Adequacy Comment Significant Decrease; Polychromasia SLIGHT = 2-3 cells HPF (0-2)
[2023-12-20] MEDS: NIFEdipine XL 60 MG ER.TAB PO SCH (08:42)
[2023-12-20] MEDS: Albuterol 2.5 MG (3 mL) NEB NEB PRN (10:14)
[2023-12-20 11:09] VITALS: BMI 34.0
[2023-12-20] MEDS: Furosemide 40 MG (4 mL) VIAL SLOW IVP SCH (11:11)
[2023-12-20] MEDS: Albumin 25% 25 GM (100 mL) BOT IVPB SCH ×2 (14:10→16:39)
[2023-12-20] MEDS: cefTRIAXone\\ROCEPHIN 2 GM in Sodium Chloride 0.9% 100 ML IVPB SCH (17:16)
[2023-12-20] MEDS: Azithromycin 250 MG TAB PO SCH (20:09)
[2023-12-21 00:46] LABS: Actual Bicarbonate (HCO3a) 24.7 mEq/L (22-28); Base Excess (BEa) 0.2 mEq/L (-2.0 to +3.0); CO2 Tension 39.4 mmHg (35.0-45.0); Calcium, Ionized (arterial) 1.13 mmol/L (1.12-1.30); Carboxyhemoglobin (COHb) 2.8 gm% (0.0-3.0); Hematocrit-ABG 24 % (36.0-47.0); Hemoglobin (Hb) 8.1 g/dL (12.0-16.0); O2 Tension (PaO2), arterial 73.9 mmHg (80.0-100.0); Potassium - ABG Lab 4.37 mmol/L (3.70-5.30); Puncture Site Right Radial artery; pH, Arterial 7.415 (7.35-7.45)
[2023-12-21] MEDS: Dextrose 5 % And 0.9 % NaCl 1,000 ML IV SCH (01:04)
[2023-12-21] MEDS: Acetaminophen 325 MG TAB PO SCH (01:06)
[2023-12-21 01:18] LABS: Hematocrit 23.7 % (36.0-47.0); Hemoglobin 7.4 g/dL (12.0-16.0); Mean Corpuscular HGB CONC 31.2 g/dL (32.0-36.0); Mean Corpuscular Hemoglobin 28.9 pg (27.0-31.0); Mean Corpuscular Volume 92.6 fL (78.0-98.0); Platelet Count 11 10x3/uL (130-400); RBC Distribution Width 17.7 % (11.5-14.5); Red Blood Cell (RBC) Count 2.56 mill/uL (4.20-5.40)
[2023-12-21 01:29] LABS: Lactic Acid 0.39 mmol/L (0.5-2.2)
[2023-12-21 01:34] LABS: ALT (SGPT) 15 U/L (8-55); AST (SGOT) 23 U/L (5-34); Albumin 2.7 g/dL (3.5-5.0); Alkaline Phosphatase 103 U/L (40-110); Anion Gap 13 mmol/L (10-20); BUN (Urea Nitrogen) 56 mg/dL (7.0-18.7); Band 3 % (5-11); Bilirubin, Total 1.1 mg/dL (0.2-1.2); Calc. Creatinine Clearance 51 mL/min (70-130); Calcium 7.8 mg/dL (7.8-10.44); Carbon Dioxide 22 mmol/L (22-29); Chloride 108 mmol/L (98-107); Estimated GFR 27; Globulin 1.4 g/dL (2.4-3.5); Glucose 67 mg/dL (70-105); Hypochromia SLIGHT = 6-15 cells HPF (0-5); Large Platelets 3.2 % (0-5); Lymphocytes 26 % (21-51); Magnesium 1.2 mg/dL (1.6-2.6); Neutrophil 71 % (42-75); Platelet Adequacy Comment Significant Decrease; Polychromasia MODERATE = 3-4 cells HPF (0-2); Potassium 4.2 mmol/L (3.5-5.1); Protein, Total 4.1 g/dL (6.0-8.3); Smudge Cells 3.2 %; Sodium 139 mmol/L (136-145)
[2023-12-21 08:32] LABS: Phosphorus 2.8 mg/dL (2.3-4.7)
[2023-12-21] MEDS: Furosemide 40 MG (4 mL) VIAL SLOW IVP SCH (09:15)
[2023-12-21] MEDS: Magnesium Sulfate In Water 4 GM in Premix 1 BAG IVPB SCH (09:18)
[2023-12-21] MEDS: Albumin 25% 25 GM (100 mL) BOT IVPB SCH (09:21)
[2023-12-21] MEDS: Insulin Glargine 30 UNITS/0.3 ML VIAL SC SCH (21:46)
[2023-12-22 06:01] LABS: Hematocrit 18.9 % (36.0-47.0); Hemoglobin 6.1 g/dL (12.0-16.0); Mean Corpuscular HGB CONC 32.3 g/dL (32.0-36.0); Mean Corpuscular Hemoglobin 28.1 pg (27.0-31.0); Mean Corpuscular Volume 87.1 fL (78.0-98.0); Mean Platelet Volume 12.7 fL (7.4-10.4); Platelet Count 17 10x3/uL (130-400); RBC Distribution Width 16.9 % (11.5-14.5); Red Blood Cell (RBC) Count 2.17 mill/uL (4.20-5.40)
[2023-12-22 06:19] LABS: Anion Gap 16 mmol/L (10-20); BUN (Urea Nitrogen) 69 mg/dL (7.0-18.7); Calc. Creatinine Clearance 41 mL/min (70-130); Calcium 7.8 mg/dL (7.8-10.44); Carbon Dioxide 20 mmol/L (22-29); Chloride 102 mmol/L (98-107); Estimated GFR 21; Glucose 466 mg/dL (70-105); Potassium 4.7 mmol/L (3.5-5.1); Sodium 133 mmol/L (136-145)
[2023-12-22 06:35] LABS: Anisocytosis SLIGHT = 6-15 cells HPF (0-5); Lymphocytes 14 % (21-51); Microcytosis SLIGHT = 6-15 cells HPF (0-5); Monocytes 1 % (0-10); Neutrophil 85 % (42-75); Nucleated RBC (Manual Ct) 1 % (0); Platelet Adequacy Comment Significant Decrease; Polychromasia SLIGHT = 2-3 cells HPF (0-2); Toxic Granulation SLIGHT
[2023-12-22] MEDS: Sodium Chloride 0.9% 1,000 ML IV SCH (07:48)
[2023-12-22 10:07] LABS: ALT (SGPT) 17 U/L (8-55); AST (SGOT) 16 U/L (5-34); Albumin 2.9 g/dL (3.5-5.0); Alkaline Phosphatase 104 U/L (40-110); Bilirubin, Direct 0.2 mg/dL (0.1-0.3); Bilirubin, Total 0.5 mg/dL (0.2-1.2); Protein, Total 4.4 g/dL (6.0-8.3)
[2023-12-22] MEDS: Cefepime 1 GM in Sodium Chloride 0.9% 100 ML IVPB SCH (12:51)
[2023-12-22] MEDS: Sodium Bicarbonate Tab 325 MG TAB PO SCH (14:34)
[2023-12-22 15:46] LABS: Hematocrit 21.8 % (36.0-47.0); Hemoglobin 7.2 g/dL (12.0-16.0)
[2023-12-22 17:32] LABS: Glucose 362 mg/dL (70-105)
[2023-12-23 06:30] LABS: Anion Gap 14 mmol/L (10-20); BUN (Urea Nitrogen) 61 mg/dL (7.0-18.7); Calc. Creatinine Clearance 45 mL/min (70-130); Carbon Dioxide 22 mmol/L (22-29); Chloride 104 mmol/L (98-107); Estimated GFR 23; Glucose 98 mg/dL (70-105); Potassium 4.5 mmol/L (3.5-5.1); Sodium 135 mmol/L (136-145)
[2023-12-23 06:37] LABS: Hematocrit 21.5 % (36.0-47.0); Hemoglobin 7.2 g/dL (12.0-16.0); Mean Corpuscular HGB CONC 33.5 g/dL (32.0-36.0); Mean Corpuscular Hemoglobin 28.5 pg (27.0-31.0); Mean Platelet Volume 11.9 fL (7.4-10.4); Platelet Count 18 10x3/uL (130-400); Red Blood Cell (RBC) Count 2.53 mill/uL (4.20-5.40)
[2023-12-23 06:52] LABS: Magnesium 1.7 mg/dL (1.6-2.6)
[2023-12-23 07:18] LABS: Band 1 % (5-11); Large Platelets 1.9 % (0-5); Lymphocytes 8 % (21-51); Monocytes 5 % (0-10); Neutrophil 84 % (42-75); Platelet Adequacy Comment Significant Decrease; Polychromasia SLIGHT = 2-3 cells HPF (0-2); Reactive Lymphocytes 3 % (0-10)
[2023-12-23] MEDS: predniSONE 20 MG TAB PO SCH (09:40)
[2023-12-24 05:20] LABS: Hematocrit 23.6 % (36.0-47.0); Hemoglobin 7.9 g/dL (12.0-16.0); Mean Corpuscular HGB CONC 33.5 g/dL (32.0-36.0); Mean Corpuscular Hemoglobin 28.1 pg (27.0-31.0); Platelet Count 18 10x3/uL (130-400); RBC Distribution Width 18.1 % (11.5-14.5); Red Blood Cell (RBC) Count 2.81 mill/uL (4.20-5.40)
[2023-12-24 06:13] LABS: Anisocytosis SLIGHT = 6-15 cells HPF (0-5); Large Platelets 6.7 % (0-5); Lymphocytes 9 % (21-51); Macrocytosis SLIGHT = 6-15 cells HPF (0-5); Monocytes 2 % (0-10); Neutrophil 89 % (42-75); Ovalocytes SLIGHT = 2-5 cells HPF (0-1); Platelet Adequacy Comment Platelets Decreased; Polychromasia SLIGHT = 2-3 cells HPF (0-2)
[2023-12-24 08:17] LABS: Albumin 2.5 g/dL (3.5-5.0); Anion Gap 12 mmol/L (10-20); BUN (Urea Nitrogen) 59 mg/dL (7.0-18.7); BUN/Creatinine Ratio 21.38; Calc. Creatinine Clearance 43 mL/min (70-130); Carbon Dioxide 23 mmol/L (22-29); Chloride 107 mmol/L (98-107); Estimated GFR 22; Glucose 252 mg/dL (70-105); Phosphorus 4.6 mg/dL (2.3-4.7); Potassium 4.9 mmol/L (3.5-5.1); Sodium 137 mmol/L (136-145)
[2023-12-24] MEDS: Sodium Chloride 0.9% 1,000 ML IV SCH (11:32)
[2023-12-24] MEDS ORDERED: Meropenem 0.5 GM in Sodium Chloride 0.9% 100 ML IVPB SCH (14:47)
[2023-12-24] MEDS: Meropenem 1 GM in Sodium Chloride 0.9% 100 ML IVPB SCH ×2 (15:01→17:08)
[2023-12-24] MEDS: Chlorhexidine Gluconate 15 ML UDCUP SSP SCH (15:22)
[2023-12-24] MEDS: Insulin Lispro 100 UNIT/ML 10 ML VIAL SC PRN (20:23)
[2023-12-25] MEDS: Meropenem 1 GM in Sodium Chloride 0.9% 100 ML IVPB SCH (02:29)
[2023-12-25 04:53] LABS: Anion Gap 9 mmol/L (10-20); BUN (Urea Nitrogen) 44 mg/dL (7.0-18.7); BUN/Creatinine Ratio 22.56; Calc. Creatinine Clearance 61 mL/min (70-130); Calcium 6.3 mg/dL (7.8-10.44); Carbon Dioxide 18 mmol/L (22-29); Chloride 117 mmol/L (98-107); Estimated GFR 34; Glucose 192 mg/dL (70-105); Phosphorus 2.6 mg/dL (2.3-4.7); Potassium 3.7 mmol/L (3.5-5.1); Sodium 140 mmol/L (136-145)
[2023-12-25 08:32] LABS: Anion Gap 13 mmol/L (10-20); BUN (Urea Nitrogen) 51 mg/dL (7.0-18.7); Calc. Creatinine Clearance 49 mL/min (70-130); Calcium 8.1 mg/dL (7.8-10.44); Carbon Dioxide 21 mmol/L (22-29); Chloride 110 mmol/L (98-107); Estimated GFR 26; Glucose 150 mg/dL (70-105); Potassium 4.6 mmol/L (3.5-5.1); Sodium 139 mmol/L (136-145)
[2023-12-26 06:30] LABS: Hematocrit 23.6 % (36.0-47.0); Hemoglobin 7.6 g/dL (12.0-16.0); Mean Corpuscular HGB CONC 32.2 g/dL (32.0-36.0); Mean Corpuscular Volume 87.1 fL (78.0-98.0); Mean Platelet Volume 12.8 fL (7.4-10.4); Platelet Count 25 10x3/uL (130-400); Red Blood Cell (RBC) Count 2.71 mill/uL (4.20-5.40)
[2023-12-26 06:38] LABS: Anion Gap 10 mmol/L (10-20); BUN (Urea Nitrogen) 41 mg/dL (7.0-18.7); Calc. Creatinine Clearance 62 mL/min (70-130); Carbon Dioxide 19 mmol/L (22-29); Chloride 116 mmol/L (98-107); Estimated GFR 34; Glucose 215 mg/dL (70-105); Potassium 4.1 mmol/L (3.5-5.1); Sodium 141 mmol/L (136-145)
[2023-12-26 07:01] LABS: Calcium 6.9 mg/dL (7.8-10.44)
[2023-12-26 09:43] LABS: Anisocytosis SLIGHT = 6-15 cells HPF (0-5); Large Platelets 8.2 % (0-5); Lymphocytes 29 % (21-51); Monocytes 2 % (0-10); Neutrophil 69 % (42-75); Ovalocytes SLIGHT = 2-5 cells HPF (0-1); Platelet Adequacy Comment Platelets Decreased; Polychromasia SLIGHT = 2-3 cells HPF (0-2); Smudge Cells 6.1 %
[2023-12-26] MEDS: guaiFENesin ER 600 MG TAB PO SCH ×2 (11:21→20:35)
[2023-12-26] MEDS: NIFEdipine XL 30 MG ER.TAB PO SCH (11:21)
[2023-12-26] MEDS: Sodium Bicarbonate Tab 325 MG TAB PO SCH (14:45)
[2023-12-26] MEDS: ALPRAZolam 0.25 MG TAB PO PRN (16:16)
[2023-12-26] MEDS: Carvedilol 6.25 MG TAB PO SCH (20:36)
[2023-12-27 08:37] LABS: Albumin 2.1 g/dL (3.5-5.0); Anion Gap 9 mmol/L (10-20); BUN (Urea Nitrogen) 43 mg/dL (7.0-18.7); BUN/Creatinine Ratio 21.29; Calc. Creatinine Clearance 59 mL/min (70-130); Calcium 7.9 mg/dL (7.8-10.44); Carbon Dioxide 23 mmol/L (22-29); Chloride 112 mmol/L (98-107); Estimated GFR 33; Glucose 148 mg/dL (70-105); Phosphorus 2.1 mg/dL (2.3-4.7); Potassium 4.2 mmol/L (3.5-5.1); Sodium 140 mmol/L (136-145)
[2023-12-27 08:46] LABS: Hematocrit 24.3 % (36.0-47.0); Hemoglobin 7.7 g/dL (12.0-16.0); Mean Corpuscular HGB CONC 31.7 g/dL (32.0-36.0); Mean Corpuscular Volume 88.4 fL (78.0-98.0); Mean Platelet Volume 11.6 fL (7.4-10.4); Platelet Count 33 10x3/uL (130-400); RBC Distribution Width 17.7 % (11.5-14.5); Red Blood Cell (RBC) Count 2.75 mill/uL (4.20-5.40)
[2023-12-27] MEDS ORDERED: NIFEdipine XL 30 MG ER.TAB PO SCH (09:00)
[2023-12-27] MEDS: NIFEdipine XL 30 MG ER.TAB PO SCH (09:19)
[2023-12-27] MEDS: PHOS-NAK 1 PKT PACK PO SCH (09:19)
[2023-12-27 09:22] LABS: Band 1 % (5-11); Large Platelets 3.4 % (0-5); Lymphocytes 17 % (21-51); Monocytes 2 % (0-10); Neutrophil 79 % (42-75); Platelet Adequacy Comment Significant Decrease; RBC Morphology Within Normal Limits; Reactive Lymphocytes 1 % (0-10)
[2023-12-27] MEDS: Albumin 25% 25 GM (100 mL) BOT IVPB SCH (14:25)
[2023-12-28 07:38] LABS: Albumin 2.6 g/dL (3.5-5.0); Anion Gap 10 mmol/L (10-20); BUN (Urea Nitrogen) 38 mg/dL (7.0-18.7); BUN/Creatinine Ratio 18.18; Calc. Creatinine Clearance 57 mL/min (70-130); Calcium 7.7 mg/dL (7.8-10.44); Carbon Dioxide 24 mmol/L (22-29); Chloride 110 mmol/L (98-107); Estimated GFR 31; Glucose 87 mg/dL (70-105); Phosphorus 2.5 mg/dL (2.3-4.7); Potassium 4.3 mmol/L (3.5-5.1); Sodium 140 mmol/L (136-145)
[2023-12-28 07:58] LABS: Hematocrit 21.2 % (36.0-47.0); Hemoglobin 6.9 g/dL (12.0-16.0); Mean Corpuscular HGB CONC 32.5 g/dL (32.0-36.0); Mean Corpuscular Hemoglobin 27.9 pg (27.0-31.0); Mean Corpuscular Volume 85.8 fL (78.0-98.0); Mean Platelet Volume 12.2 fL (7.4-10.4); Platelet Count 32 10x3/uL (130-400); RBC Distribution Width 17.7 % (11.5-14.5); Red Blood Cell (RBC) Count 2.47 mill/uL (4.20-5.40)
[2023-12-28 08:44] LABS: Band 25 % (5-11); Large Platelets 2.9 % (0-5); Lymphocytes 11 % (21-51); Metamyelocyte 3 % (0-0); Monocytes 1 % (0-10); Myelocyte 1 % (0-0); Neutrophil 57 % (42-75); Platelet Adequacy Comment Platelets Decreased; Polychromasia SLIGHT = 2-3 cells HPF (0-2); Reactive Lymphocytes 1 % (0-10)
[2023-12-28] MEDS: Nystatin 500,000 UNITS/5 ML UDCUP SSW SCH (14:02)
[2023-12-29 05:59] LABS: Hematocrit 26.3 % (36.0-47.0); Hemoglobin 8.8 g/dL (12.0-16.0); Mean Corpuscular HGB CONC 33.5 g/dL (32.0-36.0); Mean Corpuscular Volume 83.8 fL (78.0-98.0); Mean Platelet Volume 11.7 fL (7.4-10.4); Platelet Count 37 10x3/uL (130-400); Red Blood Cell (RBC) Count 3.14 mill/uL (4.20-5.40)
[2023-12-29 06:12] LABS: Albumin 2.3 g/dL (3.5-5.0); Anion Gap 12 mmol/L (10-20); BUN (Urea Nitrogen) 33 mg/dL (7.0-18.7); BUN/Creatinine Ratio 17.55; Calc. Creatinine Clearance 64 mL/min (70-130); Calcium 7.6 mg/dL (7.8-10.44); Carbon Dioxide 24 mmol/L (22-29); Chloride 111 mmol/L (98-107); Estimated GFR 36; Glucose 77 mg/dL (70-105); Phosphorus 2.9 mg/dL (2.3-4.7); Potassium 3.9 mmol/L (3.5-5.1); Sodium 143 mmol/L (136-145)
[2023-12-29 06:21] LABS: Band 16 % (5-11); Burr Cells SLIGHT = 2-5 cells HPF (0-1); Large Platelets 2.9 % (0-5); Lymphocytes 8 % (21-51); Microcytosis SLIGHT = 6-15 cells HPF (0-5); Neutrophil 77 % (42-75); Ovalocytes SLIGHT = 2-5 cells HPF (0-1); Platelet Adequacy Comment Significant Decrease; Polychromasia SLIGHT = 2-3 cells HPF (0-2); Target Cells SLIGHT = 2-5 cells HPF (0-1); Tear Drops SLIGHT = 2-5 cells HPF (0-1); Toxic Granulation SLIGHT; Vacuoles SLIGHT
[2023-12-29] MEDS: Albumin 25% 25 GM (100 mL) BOT IVPB SCH (11:30)
[2023-12-30 06:44] LABS: Anion Gap 11 mmol/L (10-20); BUN (Urea Nitrogen) 30 mg/dL (7.0-18.7); BUN/Creatinine Ratio 17.05; Calc. Creatinine Clearance 68 mL/min (70-130); Calcium 7.9 mg/dL (7.8-10.44); Carbon Dioxide 24 mmol/L (22-29); Chloride 112 mmol/L (98-107); Estimated GFR 38; Glucose 78 mg/dL (70-105); Phosphorus 2.9 mg/dL (2.3-4.7); Potassium 3.7 mmol/L (3.5-5.1); Sodium 143 mmol/L (136-145)
[2023-12-30 06:45] LABS: Hematocrit 23.7 % (36.0-47.0); Hemoglobin 7.9 g/dL (12.0-16.0); Mean Corpuscular HGB CONC 33.3 g/dL (32.0-36.0); Mean Corpuscular Hemoglobin 28.1 pg (27.0-31.0); Mean Corpuscular Volume 84.3 fL (78.0-98.0); Mean Platelet Volume 10.7 fL (7.4-10.4); Platelet Count 38 10x3/uL (130-400); RBC Distribution Width 17.8 % (11.5-14.5); Red Blood Cell (RBC) Count 2.81 mill/uL (4.20-5.40)
[2023-12-30 07:20] LABS: Band 8 % (5-11); Eosinophils 1 % (0-10); Lymphocytes 18 % (21-51); Metamyelocyte 1 % (0-0); Monocytes 2 % (0-10); Neutrophil 68 % (42-75); Platelet Adequacy Comment Platelets Decreased; Polychromasia MODERATE = 3-4 cells HPF (0-2); Reactive Lymphocytes 1 % (0-10)
[2023-12-30] MEDS: Insulin Glargine 30 UNITS/0.3 ML VIAL SC SCH (16:54)
[2023-12-30] MEDS: Meropenem 1 GM in Sodium Chloride 0.9% 100 ML IVPB SCH (20:36)
[2023-12-31 07:34] LABS: Albumin 2.8 g/dL (3.5-5.0); Anion Gap 10 mmol/L (10-20); BUN (Urea Nitrogen) 32 mg/dL (7.0-18.7); BUN/Creatinine Ratio 19.75; Calc. Creatinine Clearance 74 mL/min (70-130); Calcium 7.8 mg/dL (7.8-10.44); Carbon Dioxide 24 mmol/L (22-29); Chloride 112 mmol/L (98-107); Estimated GFR 42; Glucose 116 mg/dL (70-105); Potassium 3.6 mmol/L (3.5-5.1); Sodium 142 mmol/L (136-145)
[2023-12-31] MEDS: NIFEdipine XL 30 MG ER.TAB PO SCH (15:20)
[2024-01-01] MEDS: predniSONE 5 MG TAB PO SCH (09:30)
[2024-01-01] MEDS: NIFEdipine XL 90 MG ER.TAB PO SCH (09:33)
[2024-01-01 10:28] LABS: Albumin 2.7 g/dL (3.5-5.0); Anion Gap 11 mmol/L (10-20); BUN (Urea Nitrogen) 33 mg/dL (7.0-18.7); BUN/Creatinine Ratio 21.15; Calc. Creatinine Clearance 77 mL/min (70-130); Calcium 7.5 mg/dL (7.8-10.44); Carbon Dioxide 22 mmol/L (22-29); Chloride 112 mmol/L (98-107); Estimated GFR 44; Glucose 115 mg/dL (70-105); Phosphorus 2.4 mg/dL (2.3-4.7); Potassium 3.3 mmol/L (3.5-5.1); Sodium 142 mmol/L (136-145)
[2024-01-01] MEDS: Potassium Chloride 20 MEQ TAB PO SCH (13:41)
[2024-01-01] MEDS: Potassium Bicarbonate/Cit Ac 20 MEQ TAB PO SCH (13:45)
[2024-01-01] MEDS: predniSONE 50 MG TAB PO SCH (15:41)
[2024-01-01] MEDS: Famotidine 20 MG TAB PO SCH (19:53)
[2024-01-02] MEDS: predniSONE 50 MG TAB PO SCH ×2 (00:58→08:31)
[2024-01-02 05:45] LABS: Magnesium 1.2 mg/dL (1.6-2.6)
[2024-01-02 07:34] LABS: Albumin 2.8 g/dL (3.5-5.0); Anion Gap 14 mmol/L (10-20); BUN (Urea Nitrogen) 37 mg/dL (7.0-18.7); Calc. Creatinine Clearance 73 mL/min (70-130); Calcium 7.5 mg/dL (7.8-10.44); Carbon Dioxide 22 mmol/L (22-29); Chloride 112 mmol/L (98-107); Estimated GFR 42; Glucose 183 mg/dL (70-105); Potassium 4.5 mmol/L (3.5-5.1); Sodium 143 mmol/L (136-145)
[2024-01-02] MEDS ORDERED: OCTAGAM 10% (10 GM/100 ML VIAL) IVPB SCH ×2 (08:00)
[2024-01-02] MEDS: Loratadine 10 MG TAB PO SCH (08:31)
[2024-01-02] MEDS: Privigen 20 GM, Privigen 10 GM in Admixture Fee 1 EACH IVPB SCH (09:42)
[2024-01-02] MEDS: ADMIXTURE FEE IVPB SCH (16:09)
[2024-01-02] MEDS: PRIVIGEN IVPB SCH (16:09)
[2024-01-02] MEDS: Insulin Glargine 30 UNITS/0.3 ML VIAL SC SCH ×2 (17:25→21:12)
[2024-01-02] MEDS: NIFEdipine XL 30 MG ER.TAB PO SCH (21:08)
[2024-01-02 21:57] LABS: Phosphorus 2.3 mg/dL (2.3-4.7)
[2024-01-02] MEDS: Magnesium Sulfate In Water 4 GM in Premix 1 BAG IVPB SCH (23:22)
[2024-01-03 06:41] LABS: Hematocrit 23.4 % (36.0-47.0); Hemoglobin 7.7 g/dL (12.0-16.0); Mean Corpuscular HGB CONC 32.9 g/dL (32.0-36.0); Mean Corpuscular Hemoglobin 27.6 pg (27.0-31.0); Mean Corpuscular Volume 83.9 fL (78.0-98.0); Mean Platelet Volume 11.2 fL (7.4-10.4); Platelet Count 62 10x3/uL (130-400); RBC Distribution Width 16.7 % (11.5-14.5); Red Blood Cell (RBC) Count 2.79 mill/uL (4.20-5.40)
[2024-01-03 06:59] LABS: Albumin 2.4 g/dL (3.5-5.0); Anion Gap 13 mmol/L (10-20); BUN (Urea Nitrogen) 45 mg/dL (7.0-18.7); BUN/Creatinine Ratio 26.95; Calc. Creatinine Clearance 72 mL/min (70-130); Calcium 7.4 mg/dL (7.8-10.44); Carbon Dioxide 21 mmol/L (22-29); Chloride 110 mmol/L (98-107); Estimated GFR 41; Glucose 302 mg/dL (70-105); Magnesium 2.2 mg/dL (1.6-2.6); Phosphorus 2.4 mg/dL (2.3-4.7); Potassium 4.1 mmol/L (3.5-5.1); Sodium 140 mmol/L (136-145)
[2024-01-03 07:24] LABS: Band 8 % (5-11); Large Platelets 1.9 % (0-5); Lymphocytes 26 % (21-51); Monocytes 11 % (0-10); Neutrophil 55 % (42-75); Nucleated RBC (Manual Ct) 3 % (0); Platelet Adequacy Comment Significant Decrease; RBC Morphology Within Normal Limits; Reactive Lymphocytes 1 % (0-10)
[2024-01-03] MEDS ORDERED: predniSONE 20 MG TAB PO SCH (08:00)
[2024-01-03] MEDS: predniSONE 5 MG TAB PO SCH (08:37)
[2024-01-03] MEDS: NIFEdipine XL 60 MG ER.TAB PO SCH (08:48)
[2024-01-03] MEDS: Insulin Glargine 30 UNITS/0.3 ML VIAL SC SCH (21:37)
[2024-01-04 09:40] LABS: Albumin 2.2 g/dL (3.5-5.0); Anion Gap 10 mmol/L (10-20); BUN (Urea Nitrogen) 48 mg/dL (7.0-18.7); BUN/Creatinine Ratio 26.37; Calc. Creatinine Clearance 66 mL/min (70-130); Calcium 7.6 mg/dL (7.8-10.44); Carbon Dioxide 22 mmol/L (22-29); Chloride 112 mmol/L (98-107); Estimated GFR 37; Glucose 60 mg/dL (70-105); Phosphorus 2.3 mg/dL (2.3-4.7); Sodium 140 mmol/L (136-145)
[2024-01-04] MEDS ORDERED: Promethazine HCl 25 MG in Sodium Chloride 0.9% 50 ML IVPB PRN (13:06)
[2024-01-04 13:50] LABS: ALT (SGPT) 23 U/L (8-55); AST (SGOT) 35 U/L (5-34); Albumin 2.3 g/dL (3.5-5.0); Alkaline Phosphatase 124 U/L (40-110); Bilirubin, Direct 0.2 mg/dL (0.1-0.3); Bilirubin, Total 0.5 mg/dL (0.2-1.2); Lipase 98 U/L (8-78)
[2024-01-04] MEDS: Albumin 25% 25 GM (100 mL) BOT IVPB SCH ×2 (14:01→18:28)
[2024-01-04 19:04] LABS: Amphetamine Not Detected (NotDetected); Bacteria/HPF None Seen HPF (None Seen); Barbiturates Screen Not Detected (NotDetected); Benzodiazepine Screen Detected (NotDetected); Bilirubin Negative (Negative); Blood, Urine 1+ (Negative); CAUTI Indications for Culture Dysuria,urgency,freq; Clarity Clear (Clear); Cocaine Metabolite Screen Not Detected (NotDetected); Glucose, Urine (Dipstick) Normal (Negative); Ketone, Urine Negative (Negative); Leukocyte Negative Leu/uL (Negative); Methadone Not Detected (NotDetected); Methamphetamine Not Detected (NotDetected); Nitrite Negative (Negative); Opiate Screen Not Detected (NotDetected); Oxycodone Screen Not Detected (NotDetected); Phencyclidine (PCP) Not Detected (NotDetected); Protein, Urine (Dipstick) 600 mg/dL (Neg-Trace); RBC/HPF 0-3 HPF (0-3); Specific Gravity, Urine 1.012 (1.002-1.036); THC/Cannabinoid Screen Not Detected (NotDetected); Tricyclic Screen Not Detected (NotDetected); Urobilinogen Normal mg/dL (Less than 2); WBC/HPF 0-3 HPF (0-3); pH, Urine 6.5 (5.0-9.0)
[2024-01-04 19:05] LABS: Urine Culture Reflex No No
[2024-01-05 06:26] LABS: Hematocrit 20.9 % (36.0-47.0); Hemoglobin 6.8 g/dL (12.0-16.0); Mean Corpuscular HGB CONC 32.5 g/dL (32.0-36.0); Mean Platelet Volume 11.6 fL (7.4-10.4); Platelet Count 50 10x3/uL (130-400); RBC Distribution Width 17.8 % (11.5-14.5); Red Blood Cell (RBC) Count 2.43 mill/uL (4.20-5.40)
[2024-01-05 06:48] LABS: Anisocytosis SLIGHT = 6-15 cells HPF (0-5); Band 5 % (5-11); Eosinophils 1 % (0-10); Lymphocytes 29 % (21-51); Metamyelocyte 1 % (0-0); Monocytes 5 % (0-10); Myelocyte 1 % (0-0); Neutrophil 56 % (42-75); Platelet Adequacy Comment Platelets Decreased
[2024-01-05 08:17] LABS: ALT (SGPT) 25 U/L (8-55); AST (SGOT) 46 U/L (5-34); Alkaline Phosphatase 131 U/L (40-110); Anion Gap 12 mmol/L (10-20); BUN (Urea Nitrogen) 44 mg/dL (7.0-18.7); BUN/Creatinine Ratio 21.78; Bilirubin, Total 0.9 mg/dL (0.2-1.2); Calc. Creatinine Clearance 59 mL/min (70-130); Carbon Dioxide 20 mmol/L (22-29); Chloride 112 mmol/L (98-107); Estimated GFR 33; Globulin 2.1 g/dL (2.4-3.5); Glucose 103 mg/dL (70-105); Lipase 57 U/L (8-78); Magnesium 1.7 mg/dL (1.6-2.6); Potassium 3.9 mmol/L (3.5-5.1); Protein, Total 5.1 g/dL (6.0-8.3); Sodium 140 mmol/L (136-145)
[2024-01-05] MEDS: Magnesium Sulfate In Water 4 GM in Premix 1 BAG IVPB SCH (09:24)
[2024-01-05 13:10] LABS: Creatinine, Urine 74.67 mg/dL (47-110)
[2024-01-05] MEDS: Meropenem 1 GM in Sodium Chloride 0.9% 100 ML IVPB SCH (19:37)
[2024-01-06 06:29] LABS: Mean Corpuscular HGB CONC 33.3 g/dL (32.0-36.0); Mean Corpuscular Hemoglobin 28.3 pg (27.0-31.0); Mean Corpuscular Volume 84.8 fL (78.0-98.0); Mean Platelet Volume 11.3 fL (7.4-10.4); Platelet Count 55 10x3/uL (130-400); RBC Distribution Width 17.2 % (11.5-14.5); Red Blood Cell (RBC) Count 2.83 mill/uL (4.20-5.40)
[2024-01-06 06:33] LABS: Iron 43 ug/dL (50-170); Iron Binding Capacity, Total 80 mcg/dL (265-497)
[2024-01-06 06:34] LABS: Anion Gap 12 mmol/L (10-20); BUN (Urea Nitrogen) 44 mg/dL (7.0-18.7); Calc. Creatinine Clearance 60 mL/min (70-130); Calcium 8.4 mg/dL (7.8-10.44); Carbon Dioxide 21 mmol/L (22-29); Chloride 112 mmol/L (98-107); Estimated GFR 33; Glucose 185 mg/dL (70-105); Magnesium 2.4 mg/dL (1.6-2.6); Potassium 4.5 mmol/L (3.5-5.1); Sodium 140 mmol/L (136-145)
[2024-01-06 07:27] LABS: Anisocytosis SLIGHT = 6-15 cells HPF (0-5); Band 8 % (5-11); Large Platelets 3.8 % (0-5); Lymphocytes 22 % (21-51); Macrocytosis SLIGHT = 6-15 cells HPF (0-5); Monocytes 6 % (0-10); Myelocyte 1 % (0-0); Neutrophil 63 % (42-75); Ovalocytes SLIGHT = 2-5 cells HPF (0-1); Platelet Adequacy Comment Platelets Decreased; Polychromasia SLIGHT = 2-3 cells HPF (0-2); Smudge Cells 11.3 %
[2024-01-06] MEDS: Insulin Glargine 30 UNITS/0.3 ML VIAL SC SCH (20:28)
[2024-01-07 07:12] LABS: Hematocrit 22.4 % (36.0-47.0); Hemoglobin 7.4 g/dL (12.0-16.0); Mean Corpuscular Hemoglobin 28.5 pg (27.0-31.0); Mean Corpuscular Volume 86.2 fL (78.0-98.0); Mean Platelet Volume 11.6 fL (7.4-10.4); Platelet Count 47 10x3/uL (130-400); RBC Distribution Width 17.9 % (11.5-14.5)
[2024-01-07 07:21] LABS: Anion Gap 11 mmol/L (10-20); BUN (Urea Nitrogen) 44 mg/dL (7.0-18.7); Calc. Creatinine Clearance 59 mL/min (70-130); Calcium 8.5 mg/dL (7.8-10.44); Carbon Dioxide 23 mmol/L (22-29); Chloride 111 mmol/L (98-107); Estimated GFR 32; Glucose 124 mg/dL (70-105); Magnesium 2.1 mg/dL (1.6-2.6); Sodium 140 mmol/L (136-145)
[2024-01-07 07:25] LABS: Band 3 % (5-11); Large Platelets 1.9 % (0-5); Lymphocytes 19 % (21-51); Metamyelocyte 3 % (0-0); Microcytosis SLIGHT = 6-15 cells HPF (0-5); Monocytes 8 % (0-10); Neutrophil 66 % (42-75); Platelet Adequacy Comment Significant Decrease
[2024-01-07 14:12] LABS: INR-International Normal Ratio 1.2; PTT 36.8 sec (22.9-36.1)
[2024-01-07] MEDS: Clotrimazole 2% 3 Day Vag Cr 22.2 GM TUBE VAG SCH (20:17)
[2024-01-07] MEDS: Insulin Lispro 100 UNIT/ML 10 ML VIAL SC SCH (21:41)
[2024-01-08 06:48] LABS: Hematocrit 23.1 % (36.0-47.0); Hemoglobin 7.4 g/dL (12.0-16.0); Mean Corpuscular Volume 87.5 fL (78.0-98.0); Mean Platelet Volume 11.8 fL (7.4-10.4); Platelet Count 38 10x3/uL (130-400); RBC Distribution Width 17.8 % (11.5-14.5); Red Blood Cell (RBC) Count 2.64 mill/uL (4.20-5.40)
[2024-01-08 06:51] LABS: Albumin 2.7 g/dL (3.5-5.0); Phosphorus 3.3 mg/dL (2.3-4.7)
[2024-01-08 06:52] LABS: Anion Gap 11 mmol/L (10-20); BUN (Urea Nitrogen) 41 mg/dL (7.0-18.7); Calc. Creatinine Clearance 71 mL/min (70-130); Calcium 8.5 mg/dL (7.8-10.44); Carbon Dioxide 24 mmol/L (22-29); Chloride 111 mmol/L (98-107); Estimated GFR 40; Glucose 144 mg/dL (70-105); Magnesium 1.6 mg/dL (1.6-2.6); Potassium 5.1 mmol/L (3.5-5.1); Sodium 141 mmol/L (136-145)
[2024-01-08 07:00] LABS: INR-International Normal Ratio 1.1; PTT 38.1 sec (22.9-36.1); Prothrombin Time 14.6 sec (12.0-14.7)
[2024-01-08] MEDS: Magnesium Oxide 400 MG TAB PO SCH (08:30)
[2024-01-08 08:58] LABS: Band 4 % (5-11); Eosinophils 2 % (0-10); Lymphocytes 26 % (21-51); Monocytes 3 % (0-10); Neutrophil 65 % (42-75); Nucleated RBC (Manual Ct) 1 % (0); Platelet Adequacy Comment Significant Decrease; RBC Morphology Within Normal Limits; Reactive Lymphocytes 1 % (0-10)
[2024-01-08] MEDS ORDERED: Midazolam HCl 2 mg/2 ml Vial ONE (09:29)
[2024-01-08] MEDS ORDERED: Dexamethasone 20 MG/5 ML VIAL ONE (09:29)
[2024-01-08] MEDS ORDERED: fentaNYL 50 mcg/mL 1 mL Vial ONE ×4 (09:29→13:19)
[2024-01-08] MEDS ORDERED: PROPOFOL 20 ML ONE (09:29)
[2024-01-08] MEDS ORDERED: Lidocaine 1% PF 5 ML VIAL ONE (09:29)
[2024-01-08] MEDS ORDERED: Ondansetron PF 4 MG/2 ML Vial ONE (09:29)
[2024-01-08] MEDS ORDERED: Bupivacaine 0.25% HCL 30 ML VIAL ONE (09:41)
[2024-01-08] MEDS ORDERED: EPINEPHrine 1 MG/ML VIAL ONE (09:41)
[2024-01-08] MEDS ORDERED: Lidocaine 1% (PF) 30 ML VIAL ONE (09:43)
[2024-01-08] MEDS ORDERED: Labetalol HCl 100 MG/20 ML VIAL ONE (12:27)
[2024-01-08] MEDS ORDERED: Promethazine HCl 25 MG/ML VIAL ONE (12:46)
[2024-01-08] MEDS ORDERED: hydrALAZINE 20 MG/ML VIAL ONE (13:28)
[2024-01-08] MEDS ORDERED: Metoprolol Tartrate 5 MG (5 mL) VIAL ONE (13:29)
[2024-01-08] MEDS: Meropenem 1 GM in Sodium Chloride 0.9% 100 ML IVPB SCH (18:36)
[2024-01-08] MEDS: Sodium Chloride 0.9% 500 ML IV SCH (20:58)
[2024-01-09 06:09] LABS: Hematocrit 23.1 % (36.0-47.0); Hemoglobin 7.4 g/dL (12.0-16.0); Mean Corpuscular Hemoglobin 28.2 pg (27.0-31.0); Mean Corpuscular Volume 88.2 fL (78.0-98.0); Mean Platelet Volume 11.7 fL (7.4-10.4); Platelet Count 43 10x3/uL (130-400); RBC Distribution Width 18.2 % (11.5-14.5); Red Blood Cell (RBC) Count 2.62 mill/uL (4.20-5.40)
[2024-01-09 06:20] LABS: Anion Gap 12 mmol/L (10-20); BUN (Urea Nitrogen) 40 mg/dL (7.0-18.7); Calc. Creatinine Clearance 65 mL/min (70-130); Calcium 8.2 mg/dL (7.8-10.44); Carbon Dioxide 23 mmol/L (22-29); Chloride 108 mmol/L (98-107); Estimated GFR 36; Glucose 316 mg/dL (70-105); Magnesium 1.5 mg/dL (1.6-2.6); Potassium 5.4 mmol/L (3.5-5.1); Sodium 138 mmol/L (136-145)
[2024-01-09 06:38] LABS: Lymphocytes 18 % (21-51); Monocytes 8 % (0-10); Neutrophil 73 % (42-75); Other Cell Types 0.9; Platelet Adequacy Comment Platelets Decreased; Polychromasia SLIGHT = 2-3 cells HPF (0-2); Smudge Cells 12.5 %
[2024-01-09 08:43] VITALS: TEMP 97.5
[2024-01-09] MEDS: Magnesium Oxide 400 MG TAB PO SCH (08:48)
[2024-01-09 08:49] VITALS: BP 179/108
[2024-01-09] MEDS ORDERED: HYDROcodone/Acetaminophen 5/325 mg Tablet PO PRN (10:26)
[2024-01-09] MEDS: Magnesium Sulfate In Water 4 GM in Premix 1 BAG IVPB SCH (11:01)
[2024-01-09] MEDS: LOKELMA 10 GM PACKET PO SCH (11:01)
== END 2024-01-09 12:58 | disposition home or self-care (01) | DRG 853 ==
LOC: ERS 16:58 → T4-B 20:08 → ERHOLD 20:08 → IMCU/EMU 12-04 17:27 → CCU 12-09 12:36 → IMCU/EMU 12-11 19:42 → T4-B 12-19 22:14
PROVIDERS: ADMIT Internal Medicine; ATTEND Family Medicine
PROC: 30233J1 Transfusion of Nonautologous Serum Albumin into Peripheral Vein, Percutaneous Approach (ICD-10-PCS; principal; 2023-12-04)
PROC: 02HV33Z Insertion of Infusion Device into Superior Vena Cava, Percutaneous Approach (ICD-10-PCS; 2023-12-05)
PROC: B518ZZA Fluoroscopy of Superior Vena Cava, Guidance (ICD-10-PCS; 2023-12-05)
PROC: B548ZZA Ultrasonography of Superior Vena Cava, Guidance (ICD-10-PCS; 2023-12-05)
PROC: 30233N1 Transfusion of Nonautologous Red Blood Cells into Peripheral Vein, Percutaneous Approach (ICD-10-PCS; 2023-12-05)
PROC: 4A133R1 Monitoring of Arterial Saturation, Peripheral, Percutaneous Approach (ICD-10-PCS; 2023-12-09)
PROC: 6A551Z2 Pheresis of Platelets, Multiple (ICD-10-PCS; 2023-12-17)
PROC: 30233S1 Transfusion of Nonautologous Globulin into Peripheral Vein, Percutaneous Approach (ICD-10-PCS; 2024-01-02)
PROC: 0JH60WZ Insertion of Totally Implantable Vascular Access Device into Chest Subcutaneous Tissue and Fascia, Open Approach (ICD-10-PCS; 2024-01-08)
PROC: 02HV33Z Insertion of Infusion Device into Superior Vena Cava, Percutaneous Approach (ICD-10-PCS; 2024-01-08)
PROC: B518ZZA Fluoroscopy of Superior Vena Cava, Guidance (ICD-10-PCS; 2024-01-08)
PROC: B548ZZA Ultrasonography of Superior Vena Cava, Guidance (ICD-10-PCS; 2024-01-08)
DX: A40.3 Sepsis due to Streptococcus pneumoniae (principal); E11.10 Type 2 diabetes mellitus with ketoacidosis without coma; J96.21 Acute and chronic respiratory failure with hypoxia; J13 Pneumonia due to Streptococcus pneumoniae; R65.20 Severe sepsis without septic shock; G93.41 Metabolic encephalopathy; D83.9 Common variable immunodeficiency, unspecified; D61.818 Other pancytopenia; N17.9 Acute kidney failure, unspecified; N18.4 Chronic kidney disease, stage 4 (severe); J44.0 Chronic obstructive pulmonary disease with (acute) lower respiratory infection; D59.10 Autoimmune hemolytic anemia, unspecified; J45.41 Moderate persistent asthma with (acute) exacerbation; J45.42 Moderate persistent asthma with status asthmaticus; K31.84 Gastroparesis; D63.1 Anemia in chronic kidney disease; N13.5 Crossing vessel and stricture of ureter without hydronephrosis; K02.9 Dental caries, unspecified; I12.9 Hypertensive chronic kidney disease with stage 1 through stage 4 chronic kidney disease, or unspecified chronic kidney disease; F41.9 Anxiety disorder, unspecified; E87.5 Hyperkalemia; E83.42 Hypomagnesemia; E11.22 Type 2 diabetes mellitus with diabetic chronic kidney disease; E11.649 Type 2 diabetes mellitus with hypoglycemia without coma; E11.43 Type 2 diabetes mellitus with diabetic autonomic (poly)neuropathy; H66.91 Otitis media, unspecified, right ear; F79 Unspecified intellectual disabilities; B00.1 Herpesviral vesicular dermatitis; E83.39 Other disorders of phosphorus metabolism; E87.6 Hypokalemia; E86.9 Volume depletion, unspecified; Z88.0 Allergy status to penicillin; Z88.8 Allergy status to other drugs, medicaments and biological substances; Z79.4 Long term (current) use of insulin
CPT/HCPCS: 36415; 36416; 36430; 36569; 36600; 70450; 70486; 70551; 71045; 71250; 74177; 74230; 76770; 76937; 77001; 80048; 80053; 80069; 80076; 80202; 80306; 81001; 82010; 82040; 82550; 82570; 82728; 82805; 82947; 83010; 83540; 83550; 83605; 83615; 83690; 83735; 83880; 84100; 84145; 84300; 84484; 85025; 85046; 85610; 85730; 86606; 86850; 86870; 86900; 86901; 86922; 87040; 87081; 87449; 87633; 87798; 87899; 93005; 93010; 93306; 94640; 94660; 94664; 96374; 96375; A4217; C1751; C1788; J0171; J0360; J0613; J0665; J0692; J0696; J1100; J1447; J1459; J1642; J1815; J1940; J2060; J2185; J2250; J2405; J2470; J2550; J2704; J2919; J2997; J3010; J3370; J3370-JW; J3475; J3480; J7030; J7042; J7512; J7611; J7620; J7626; J7999; P9035; P9040; P9047; Q5105

== ENCOUNTER 2024-01-16 10:15 | Day surgery (SDC) | payer OTHER ==
[~2024-01-16 10:15] MED LIST changes: +diphenhydrAMINE 25 MG CAP PO SCH; -diphenhydrAMINE 25 MG in Sodium Chloride 0.9% 50 ML IVPB SCH
[2024-01-16] MEDS: Loratadine 10 MG TAB PO SCH (10:58)
[2024-01-16 11:52] VITALS: TEMP 97.8
[2024-01-16 14:15] VITALS: BP 184/106
== END 2024-01-16 14:22 | disposition home or self-care (01) ==
LOC: ONC/OP 10:15
PROVIDERS: ATTEND Internal Medicine
DX: D64.9 Anemia, unspecified (principal); D69.6 Thrombocytopenia, unspecified; Z88.1 Allergy status to other antibiotic agents; Z88.2 Allergy status to sulfonamides; Z88.8 Allergy status to other drugs, medicaments and biological substances; Z79.899 Other long term (current) drug therapy
CPT/HCPCS: 36430; 86850; 86900; 86901; 86922; J1642; P9040

== ENCOUNTER 2024-01-29 14:43 | Inpatient (IN) | payer OTHER ==
[2024-01-29] MEDS ORDERED: Ipratropium/Albuterol 3 ML NEB ONE (15:23)
[2024-01-29] MEDS ORDERED: Ipratropium/Albuterol 3 ML NEB NEB PRN (21:00)
[2024-01-29] MEDS ORDERED: ALPRAZolam 0.25 MG TAB PO SCH (21:00)
[2024-01-29] MEDS ORDERED: hydrOXYzine 25 MG TAB ONE (22:48)
[2024-01-29] MEDS ORDERED: ALPRAZolam 0.25 MG TAB ONE (22:48)
[2024-01-29] MEDS ORDERED: Magnesium 2 GM/50 ML(in water) 2 GM in Premix 1 BAG IVPB SCH (22:50)
[2024-01-30] MEDS ORDERED: Magnesium 2 GM/50 ML BAG (IN WATER) ONE (00:10)
[2024-01-30] MEDS ORDERED: Insulin Glargine 30 UNITS/0.3 ML VIAL SC SCH (02:00)
[2024-01-30] MEDS ORDERED: LACTATED RINGER S ONE (02:20)
[2024-01-30] MEDS ORDERED: Insulin Lispro 100 UNIT/ML 10 ML VIAL SC PRN ×2 (17:00)
[2024-01-30] MEDS ORDERED: Dextrose 5% in Water 1,000 ML IV PRN (17:00)
[2024-01-30] MEDS ORDERED: Dextrose 50% Abboject 50 ML SYRINGE SLOW IVP PRN (17:00)
[2024-01-30] MEDS ORDERED: Glucagon 1 MG/ML KIT IM PRN (17:00)
[2024-01-30] MEDS ORDERED: LevoFLOXacin D5W 500 mg (100 mL) BAG ONE (21:50)
[2024-01-30] MEDS: LevoFLOXacin 500 mg/D5W 500 MG in Premix 1 BAG IVPB SCH (22:33)
[2024-01-30] MEDS: Sodium Chloride 0.9% 1,000 ML IV SCH (22:33)
[2024-01-30] MEDS ORDERED: Ondansetron ODT 4 MG TAB PO PRN (23:45)
[2024-01-30] MEDS ORDERED: Ondansetron PF 4 MG/2 ML Vial SLOW IVP PRN (23:45)
[2024-01-30] MEDS ORDERED: Acetaminophen 325 MG TAB PO PRN (23:56)
[2024-01-30] MEDS ORDERED: hydrALAZINE 20 MG/ML VIAL SLOW IVP PRN (23:59)
[2024-01-31] MEDS ORDERED: Insulin Reg, Human 100 UNITS in Sodium Chloride 0.9% 100 ML IVPB SCH (00:15)
[2024-01-31] MEDS ORDERED: Insulin Lispro 100 UNIT/ML 10 ML VIAL SC PRN ×2 (00:15→09:30)
[2024-01-31] MEDS ORDERED: Dextrose 50% Abboject 50 ML SYRINGE SLOW IVP PRN (00:15)
[2024-01-31] MEDS ORDERED: Dextrose 5% in Water 1,000 ML IV PRN (00:15)
[2024-01-31] MEDS ORDERED: Glucagon 1 MG/ML KIT IM PRN (00:15)
[2024-01-31] MEDS ORDERED: ALPRAZolam 0.25 MG TAB ONE (00:30)
[2024-01-31] MEDS: Lactated Ringer's 500 ML IV SCH (01:14)
[2024-01-31] MEDS: hydrOXYzine 25 MG TAB PO SCH (01:23)
[2024-01-31 02:27] VITALS: BMI 35.0
[2024-01-31] MEDS ORDERED: Ondansetron ODT 4 MG TAB ONE (02:30)
[2024-01-31] MEDS: Insulin Lispro 100 UNIT/ML 10 ML VIAL SC PRN ×2 (06:10→20:55)
[2024-01-31] MEDS: Sodium Bicarbonate Tab 325 MG TAB PO SCH (11:25)
[2024-01-31] MEDS: dilTIAZem CD 240 MG CAP PO SCH (11:25)
[2024-01-31] MEDS: LevoFLOXacin 250 mg/D5W 250 MG in Premix 1 BAG IVPB SCH (20:55)
[2024-01-31] MEDS: ALPRAZolam 0.25 MG TAB PO PRN (23:33)
[2024-02-01 08:23] VITALS: BP 113/61
[2024-02-01 08:49] LABS: Hematocrit 23.3 % (36.0-47.0); Hemoglobin 7.4 g/dL (12.0-16.0); Mean Corpuscular HGB CONC 31.8 g/dL (32.0-36.0); Mean Corpuscular Volume 88.3 fL (78.0-98.0); Platelet Count 68 10x3/uL (130-400); RBC Distribution Width 17.8 % (11.5-14.5); Red Blood Cell (RBC) Count 2.64 mill/uL (4.20-5.40)
[2024-02-01 08:50] VITALS: TEMP 97.5
[2024-02-01 09:32] LABS: Band 11 % (5-11); Large Platelets 0.9 % (0-5); Lymphocytes 22 % (21-51); Metamyelocyte 2 % (0-0); Monocytes 2 % (0-10); Neutrophil 60 % (42-75); Nucleated RBC (Manual Ct) 1 % (0); Ovalocytes SLIGHT = 2-5 cells HPF (0-1); Platelet Adequacy Comment Platelets Decreased; Polychromasia SLIGHT = 2-3 cells HPF (0-2); Reactive Lymphocytes 2 % (0-10)
[2024-02-03 10:41] LABS: Hemoglobin 6.8 g/dL (12.0-16.0); Mean Corpuscular HGB CONC 32.4 g/dL (32.0-36.0); Mean Corpuscular Hemoglobin 28.6 pg (27.0-31.0); Mean Corpuscular Volume 88.2 fL (78.0-98.0); Mean Platelet Volume 11.6 fL (7.4-10.4); Platelet Count 46 10x3/uL (130-400); RBC Distribution Width 17.7 % (11.5-14.5); Red Blood Cell (RBC) Count 2.38 mill/uL (4.20-5.40); White Blood Cell (WBC) Count 2.27 10x3/uL (4.8-10.8)
[2024-02-03 10:42] LABS: Band 13 % (5-11); Lymphocytes 13 % (21-51); Manual Diff?? YES; Monocytes 2 % (0-10); Neutrophil 67 % (42-75); Reactive Lymphocytes 1 % (0-10)
[2024-02-03 10:43] LABS: Anisocytosis MODERATE=16-30 cells (100X) (0-5/hpf); Metamyelocyte 3 % (0-0); Microcytosis SLIGHT = 6-15 cells (100X) (0-5/hpf); Myelocyte 2 % (0-0); Ovalocytes SLIGHT = 2-5 cells (100X) (0-1/hpf); Polychromasia SLIGHT = 2-3 cells (100X) (0-2/hpf)
[2024-02-03 10:46] LABS: PTT 30.9 sec (22.9-36.1); Prothrombin Time 13.5 sec (12.0-14.7)
[2024-02-03 10:54] LABS: ALT (SGPT) 9 U/L (8-55); AST (SGOT) 17 U/L (5-34); Albumin 1.9 g/dL (3.5-5.0); Alkaline Phosphatase 101 U/L (40-110); Anion Gap 14 mmol/L (10-20); BUN (Urea Nitrogen) 31 mg/dL (7.0-18.7); Bilirubin, Total 0.3 mg/dL (0.2-1.2); Calc. Creatinine Clearance 30 mL/min (70-130); Calcium 6.9 mg/dL (7.8-10.44); Carbon Dioxide 15 mmol/L (22-29); Chloride 116 mmol/L (98-107); Estimated GFR 23; Globulin 2.4 g/dL (2.4-3.5); Glucose 456 mg/dL (70-105); Potassium 3.8 mmol/L (3.5-5.1); Protein, Total 4.3 g/dL (6.0-8.3); Sodium 141 mmol/L (136-145)
[2024-02-03 10:56] LABS: Critical Call Chemistry NUR.BH1 @ 1834
[2024-02-03 12:31] LABS: Clarity Clear (Clear); Leukocyte 500 Leu/uL (Negative); Nitrite Negative (Negative); Protein, Urine (Dipstick) 200 mg/dL (Neg-Trace); Specific Gravity, Urine 1.002 (1.002-1.036)
[2024-02-03 12:32] LABS: Bilirubin Negative (Negative); Blood, Urine Trace (Negative); Glucose, Urine (Dipstick) 500 mg/dL (Negative); Ketone, Urine Negative (Negative); RBC/HPF 0-3 HPF (0-3); Squamous Epithelial 0-3 HPF (0-3); Urobilinogen Normal mg/dL (Less than 2); WBC/HPF Greater than 50 HPF (0-3)
[2024-02-04 10:23] LABS: Magnesium 1.2 mg/dL (1.6-2.6)
[2024-02-04 10:33] LABS: ALT (SGPT) 9 U/L (8-55); AST (SGOT) 14 U/L (5-34); Alkaline Phosphatase 96 U/L (40-110); Anion Gap 13 mmol/L (10-20); BUN (Urea Nitrogen) 30 mg/dL (7.0-18.7); Bilirubin, Total 0.8 mg/dL (0.2-1.2); Calc. Creatinine Clearance 33 mL/min (70-130); Calcium 7.8 mg/dL (7.8-10.44); Carbon Dioxide 16 mmol/L (22-29); Chloride 108 mmol/L (98-107); Estimated GFR 26; Magnesium 1.9 mg/dL (1.6-2.6); Potassium 4.3 mmol/L (3.5-5.1); Sodium 133 mmol/L (136-145)
[2024-02-04 10:34] LABS: Critical Call Chemistry DOWNTIME
[2024-02-04 10:35] LABS: Glucose 598 mg/dL (70-105)
[2024-02-04 10:36] LABS: Hematocrit 23.5 % (36.0-47.0); Hemoglobin 7.7 g/dL (12.0-16.0)
== END 2024-02-01 10:15 | disposition home or self-care (01) | DRG 812 ==
LOC: ERS 14:43 → MSONC 20:41 → CCU 01-30 05:15 → T4-A 01-30 08:30
PROVIDERS: ADMIT Family Medicine; ATTEND Hospitalist
DX: T80.89XA Other complications following infusion, transfusion and therapeutic injection, initial encounter (principal); D58.9 Hereditary hemolytic anemia, unspecified; D61.818 Other pancytopenia; N17.9 Acute kidney failure, unspecified; N18.4 Chronic kidney disease, stage 4 (severe); N39.0 Urinary tract infection, site not specified; C95.90 Leukemia, unspecified not having achieved remission; D69.6 Thrombocytopenia, unspecified; E11.65 Type 2 diabetes mellitus with hyperglycemia; E11.22 Type 2 diabetes mellitus with diabetic chronic kidney disease; I12.9 Hypertensive chronic kidney disease with stage 1 through stage 4 chronic kidney disease, or unspecified chronic kidney disease; Z88.1 Allergy status to other antibiotic agents; Z88.2 Allergy status to sulfonamides; Z88.8 Allergy status to other drugs, medicaments and biological substances; Y84.8 Other medical procedures as the cause of abnormal reaction of the patient, or of later complication, without mention of misadventure at the time of the procedure; T45.1X5A Adverse effect of antineoplastic and immunosuppressive drugs, initial encounter; Z88.0 Allergy status to penicillin; Z79.4 Long term (current) use of insulin
CPT/HCPCS: 36415; 36416; 36430; 71045; 80053; 81001; 83735; 85014; 85018; 85025; 85610; 85730; 86850; 86900; 86901; 86922; 87086; 93005; 96361; 96374; J1642; J1815; J1956; J3475; J7120; J7620; P9040; Q0162

== ENCOUNTER 2024-02-17 08:50 | Observation (INO) | payer OTHER ==
[2024-02-17 11:37] VITALS: BMI 32.1
[2024-02-17] MEDS ORDERED: Dextrose 50% Abboject 50 ML SYRINGE SLOW IVP PRN (12:19)
[2024-02-17] MEDS ORDERED: Dextrose 5% in Water 1,000 ML IV PRN (12:19)
[2024-02-17] MEDS ORDERED: Acetaminophen 650 MG Suppository PR PRN (12:19)
[2024-02-17] MEDS ORDERED: Insulin Lispro 100 UNIT/ML 10 ML VIAL SC PRN (12:19)
[2024-02-17] MEDS ORDERED: Ondansetron PF 4 MG/2 ML Vial IVP PRN (12:19)
[2024-02-17] MEDS ORDERED: Glucagon 1 MG/ML KIT IM PRN (12:19)
[2024-02-17] MEDS ORDERED: Senokot S 8.6-50 MG TAB PO PRN (12:19)
[2024-02-17] MEDS ORDERED: Budesonide 0.5 MG/2 ML NEB INH PRN (13:05)
[2024-02-17] MEDS ORDERED: Arformoterol 15 MCG/2 ML NEB NEB PRN (13:05)
[2024-02-17 15:10] LABS: Bilirubin Negative (Negative); Blood, Urine 2+ (Negative); CAUTI Indications for Culture Fever or rigors; Clarity Turbid (Clear); Glucose, Urine (Dipstick) 100 mg/dL (Negative); Ketone, Urine Negative (Negative); Leukocyte 500 Leu/uL (Negative); Nitrite Negative (Negative); Protein, Urine (Dipstick) 300 mg/dL (Neg-Trace); Urobilinogen Normal mg/dL (Less than 2); WBC/HPF Greater than 50 HPF (0-3); pH, Urine 6.5 (5.0-9.0)
[2024-02-17] MEDS: Ondansetron ODT 4 MG TAB PO PRN (15:18)
[2024-02-17] MEDS: Chlorhexidine Gluconate 15 ML UDCUP SSP SCH (15:19)
[2024-02-17 15:43] LABS: Bacteria/HPF 2+ HPF (None Seen); Urine Culture Reflex Yes Yes
[2024-02-17 17:06] LABS: ALT (SGPT) 6 U/L (8-55); AST (SGOT) 13 U/L (5-34); Albumin 2.1 g/dL (3.5-5.0); Alkaline Phosphatase 65 U/L (40-110); Anion Gap 12 mmol/L (10-20); BUN (Urea Nitrogen) 23 mg/dL (7.0-18.7); Bilirubin, Total 0.3 mg/dL (0.2-1.2); Calc. Creatinine Clearance 42 mL/min (70-130); Carbon Dioxide 19 mmol/L (22-29); Chloride 112 mmol/L (98-107); Estimated GFR 25; Globulin 2.4 g/dL (2.4-3.5); Glucose 139 mg/dL (70-105); Potassium 4.4 mmol/L (3.5-5.1); Protein, Total 4.5 g/dL (6.0-8.3); Sodium 139 mmol/L (136-145)
[2024-02-17] MEDS: Nystatin 500,000 UNITS/5 ML UDCUP PO SCH (17:18)
[2024-02-17] MEDS: Insulin Lispro 100 UNIT/ML 10 ML VIAL SQ SCH (17:18)
[2024-02-17 17:43] LABS: Anisocytosis SLIGHT = 6-15 cells HPF (0-5); Platelet Adequacy Comment Platelets Decreased; Polychromasia SLIGHT = 2-3 cells HPF (0-2)
[2024-02-17 18:58] LABS: #Basophils Less than 0.03 10x3/uL (0.0-0.2); #Eosinophils Less than 0.03 10x3/uL (0.0-0.7); %Basophils 0.4 % (0.0-1.0); %Eosinophils 0.8 % (0.0-10.0); %Lymphocytes 31.5 % (21.0-51.0); %Monocytes 17.5 % (0.0-10.0); %Neutrophils 47.4 % (42.0-75.0); Hematocrit 23.1 % (36.0-47.0); Hemoglobin 7.3 g/dL (12.0-16.0); Mean Corpuscular HGB CONC 31.6 g/dL (32.0-36.0); Mean Corpuscular Hemoglobin 28.6 pg (27.0-31.0); Mean Corpuscular Volume 90.6 fL (78.0-98.0); Platelet Count 67 10x3/uL (130-400); RBC Distribution Width 18.4 % (11.5-14.5); Red Blood Cell (RBC) Count 2.55 mill/uL (4.20-5.40)
[2024-02-17 19:39] LABS: RBC Morphology Within Normal Limits
[2024-02-17] MEDS: Ipratropium/Albuterol 3 ML NEB NEB PRN (19:54)
[2024-02-17] MEDS: Transdermal Patch Removal TOP SCH (20:09)
[2024-02-18 05:33] LABS: ALT (SGPT) 5 U/L (8-55); AST (SGOT) 11 U/L (5-34); Albumin 1.9 g/dL (3.5-5.0); Alkaline Phosphatase 60 U/L (40-110); Anion Gap 10 mmol/L (10-20); BUN (Urea Nitrogen) 26 mg/dL (7.0-18.7); Bilirubin, Total 0.3 mg/dL (0.2-1.2); Calc. Creatinine Clearance 41 mL/min (70-130); Calcium 7.8 mg/dL (7.8-10.44); Carbon Dioxide 18 mmol/L (22-29); Chloride 112 mmol/L (98-107); Estimated GFR 24; Globulin 2.2 g/dL (2.4-3.5); Glucose 152 mg/dL (70-105); Protein, Total 4.1 g/dL (6.0-8.3); Sodium 136 mmol/L (136-145)
[2024-02-18 06:26] LABS: #Basophils Less than 0.03 10x3/uL (0.0-0.2); %Eosinophils 1.5 % (0.0-10.0); %Lymphocytes 40.5 % (21.0-51.0); %Neutrophils 43.5 % (42.0-75.0); Hematocrit 21.5 % (36.0-47.0); Hemoglobin 6.8 g/dL (12.0-16.0); Mean Corpuscular HGB CONC 31.6 g/dL (32.0-36.0); Mean Corpuscular Hemoglobin 28.8 pg (27.0-31.0); Mean Corpuscular Volume 91.1 fL (78.0-98.0); Platelet Count 54 10x3/uL (130-400); RBC Distribution Width 18.4 % (11.5-14.5); Red Blood Cell (RBC) Count 2.36 mill/uL (4.20-5.40)
[2024-02-18] MEDS: Azithromycin 250 MG TAB PO SCH (08:06)
[2024-02-18] MEDS: Famotidine 20 MG TAB PO SCH (08:06)
[2024-02-18] MEDS: Lidocaine 4% Patch TD SCH ×2 (08:07→19:37)
[2024-02-18] MEDS: Acetaminophen 325 MG TAB PO PRN (14:15)
[2024-02-18] MEDS ORDERED: Loratadine 10 MG TAB PO SCH (16:00)
[2024-02-18] MEDS: predniSONE 20 MG TAB PO SCH (16:19)
[2024-02-18] MEDS: Acetaminophen 500 MG TAB PO SCH (17:31)
[2024-02-18] MEDS: Loratadine 10 MG TAB PO SCH (17:32)
[2024-02-18] MEDS: Dexamethasone 10 MG in Sodium Chloride 0.9% 50 ML IVPB SCH (17:32)
[2024-02-18] MEDS: PRIVIGEN IVPB SCH (17:54)
[2024-02-18] MEDS: HYDROcodone/Acetaminophen 5/325 mg Tablet PO SCH (20:24)
[2024-02-19] MEDS: Insulin Lispro 100 UNIT/ML 10 ML VIAL SC PRN
[2024-02-19] MEDS: Lactated Ringer's 250 ML IV SCH (01:30)
[2024-02-19 05:56] LABS: Hematocrit 26.2 % (36.0-47.0); Hemoglobin 8.4 g/dL (12.0-16.0); Mean Corpuscular HGB CONC 32.1 g/dL (32.0-36.0); Mean Corpuscular Hemoglobin 28.5 pg (27.0-31.0); Mean Corpuscular Volume 88.8 fL (78.0-98.0); Mean Platelet Volume 11.8 fL (7.4-10.4); Platelet Count 58 10x3/uL (130-400); RBC Distribution Width 17.3 % (11.5-14.5); Red Blood Cell (RBC) Count 2.95 mill/uL (4.20-5.40)
[2024-02-19 06:30] LABS: Anisocytosis SLIGHT = 6-15 cells HPF (0-5); Band 5 % (5-11); Lymphocytes 11 % (21-51); Metamyelocyte 1 % (0-0); Monocytes 5 % (0-10); Neutrophil 76 % (42-75); Platelet Adequacy Comment Platelets Decreased; Polychromasia SLIGHT = 2-3 cells HPF (0-2); Reactive Lymphocytes 1 % (0-10); Smudge Cells 20.6 %
[2024-02-19 06:46] LABS: Glucose 628 mg/dL (70-105)
[2024-02-19] MEDS: Insulin Regular, Human 100 UNIT/ML 10 ML VIAL IVP SCH (07:35)
[2024-02-19] MEDS: Transdermal Patch Removal TOP SCH (08:17)
[2024-02-19] MEDS: ALPRAZolam 0.25 MG TAB PO PRN (08:19)
[2024-02-19 08:33] LABS: Anion Gap 14 mmol/L (10-20); BUN (Urea Nitrogen) 35 mg/dL (7.0-18.7); Calc. Creatinine Clearance 43 mL/min (70-130); Calcium 7.3 mg/dL (7.8-10.44); Carbon Dioxide 15 mmol/L (22-29); Chloride 103 mmol/L (98-107); Estimated GFR 25; Glucose 577 mg/dL (70-105); Potassium 5.5 mmol/L (3.5-5.1); Sodium 126 mmol/L (136-145)
[2024-02-19] MEDS: Insulin Lispro 100 UNIT/ML 10 ML VIAL SC SCH (09:44)
[2024-02-19] MEDS: SODIUM CHLORIDE 0.9% IVPB SCH (10:01)
[2024-02-19] MEDS: RITUXIMAB ABBS IVPB SCH (10:01)
[2024-02-19] MEDS ORDERED: Insulin NPH Human Isophane 100 UNITS/ML (10 ML VIAL) SC SCH (16:00)
[2024-02-19] MEDS: Lidocaine 4% Patch TD SCH (21:53)
[2024-02-20 04:20] LABS: Anion Gap 14 mmol/L (10-20); BUN (Urea Nitrogen) 36 mg/dL (7.0-18.7); Calc. Creatinine Clearance 49 mL/min (70-130); Calcium 7.7 mg/dL (7.8-10.44); Carbon Dioxide 19 mmol/L (22-29); Chloride 113 mmol/L (98-107); Estimated GFR 30; Glucose 249 mg/dL (70-105); Potassium 4.5 mmol/L (3.5-5.1); Sodium 141 mmol/L (136-145); Uric Acid 8.2 mg/dL (2.6-6.0)
[2024-02-20 04:38] LABS: Hematocrit 24.2 % (36.0-47.0); Hemoglobin 7.8 g/dL (12.0-16.0); Mean Corpuscular HGB CONC 32.2 g/dL (32.0-36.0); Mean Corpuscular Hemoglobin 28.9 pg (27.0-31.0); Mean Corpuscular Volume 89.6 fL (78.0-98.0); Mean Platelet Volume 10.8 fL (7.4-10.4); Platelet Count 56 10x3/uL (130-400); RBC Distribution Width 17.6 % (11.5-14.5)
[2024-02-20] MEDS: Insulin Lispro 100 UNIT/ML 10 ML VIAL SC PRN (05:47)
[2024-02-20 06:26] LABS: Anisocytosis SLIGHT = 6-15 cells HPF (0-5); Band 6 % (5-11); Large Platelets 5.8 % (0-5); Lymphocytes 29 % (21-51); Macrocytosis SLIGHT = 6-15 cells HPF (0-5); Metamyelocyte 1 % (0-0); Monocytes 2 % (0-10); Neutrophil 60 % (42-75); Nucleated RBC (Manual Ct) 2 % (0); Platelet Adequacy Comment Platelets Decreased; Polychromasia SLIGHT = 2-3 cells HPF (0-2); Reactive Lymphocytes 1 % (0-10); Smudge Cells 12.5 %
[2024-02-20 11:55] VITALS: TEMP 97.5
[2024-02-20] MEDS ORDERED: valACYclovir 500 MG TAB PO SCH (14:15)
[2024-02-20 14:50] VITALS: BP 134/72
== END 2024-02-20 15:06 | disposition home or self-care (01) ==
LOC: MSONC 11:02
PROVIDERS: ADMIT Internal Medicine; ATTEND Hospitalist
DX: J45.909 Unspecified asthma, uncomplicated (principal); J18.9 Pneumonia, unspecified organism; H91.91 Unspecified hearing loss, right ear; D83.9 Common variable immunodeficiency, unspecified; D61.818 Other pancytopenia; D58.9 Hereditary hemolytic anemia, unspecified; D69.6 Thrombocytopenia, unspecified; E11.10 Type 2 diabetes mellitus with ketoacidosis without coma; E66.9 Obesity, unspecified; E11.22 Type 2 diabetes mellitus with diabetic chronic kidney disease; N18.4 Chronic kidney disease, stage 4 (severe); N39.0 Urinary tract infection, site not specified; M25.571 Pain in right ankle and joints of right foot; M10.9 Gout, unspecified; K21.9 Gastro-esophageal reflux disease without esophagitis; Z68.30 Body mass index [BMI] 30.0-30.9, adult; Z88.1 Allergy status to other antibiotic agents; Z88.8 Allergy status to other drugs, medicaments and biological substances; Z88.0 Allergy status to penicillin; Z79.4 Long term (current) use of insulin; Z79.51 Long term (current) use of inhaled steroids; Z79.2 Long term (current) use of antibiotics; Z79.899 Other long term (current) drug therapy
CPT/HCPCS: 36416; 36430; 71046; 80048; 80053; 81001; 82947; 84550; 85025; 86850; 86900; 86901; 86922; 87070; 87077; 87086; 94640; 96375; 96409; 96413; 96415; G0378; G0379; J1100; J1459; J1815; J7050; J7120; J7512; J7620; P9040; Q0162; Q5115

== ENCOUNTER 2024-03-05 09:22 | Observation (INO) | payer OTHER ==
[2024-03-05] MEDS ORDERED: Acetaminophen 500 MG TAB PO SCH (10:00)
[2024-03-05] MEDS ORDERED: Bisacodyl 5 MG TAB PO PRN (10:08)
[2024-03-05] MEDS ORDERED: Glucagon 1 MG/ML KIT IM PRN (10:08)
[2024-03-05] MEDS ORDERED: Dextrose 5% in Water 1,000 ML IV PRN (10:08)
[2024-03-05] MEDS ORDERED: Dextrose 50% Abboject 50 ML SYRINGE SLOW IVP PRN (10:08)
[2024-03-05 11:25] VITALS: BMI 41.1
[2024-03-05] MEDS: Insulin Lispro 100 UNIT/ML 10 ML VIAL SC PRN (12:08)
[2024-03-05] MEDS: Acetaminophen 325 MG TAB PO PRN (12:09)
[2024-03-05] MEDS: Loratadine 10 MG TAB PO SCH (12:09)
[2024-03-05 13:01] LABS: #Basophils Less than 0.03 10x3/uL (0.0-0.2); #Eosinophils Less than 0.03 10x3/uL (0.0-0.7); %Basophils 0.4 % (0.0-1.0); %Eosinophils 0.7 % (0.0-10.0); %Lymphocytes 33.7 % (21.0-51.0); %Monocytes 8.8 % (0.0-10.0); %Neutrophils 55.7 % (42.0-75.0); Hematocrit 27.1 % (36.0-47.0); Hemoglobin 8.9 g/dL (12.0-16.0); Mean Corpuscular HGB CONC 32.8 g/dL (32.0-36.0); Mean Corpuscular Hemoglobin 28.8 pg (27.0-31.0); Mean Corpuscular Volume 87.7 fL (78.0-98.0); Mean Platelet Volume 12.8 fL (7.4-10.4); Platelet Count 62 10x3/uL (130-400); RBC Distribution Width 14.8 % (11.5-14.5); Red Blood Cell (RBC) Count 3.09 mill/uL (4.20-5.40)
[2024-03-05 13:38] LABS: Anisocytosis SLIGHT = 6-15 cells HPF (0-5); Band 1 % (5-11); Lymphocytes 29 % (21-51); Macrocytosis SLIGHT = 6-15 cells HPF (0-5); Monocytes 8 % (0-10); Neutrophil 61 % (42-75); Ovalocytes SLIGHT = 2-5 cells HPF (0-1); Platelet Adequacy Comment Platelets Decreased; Polychromasia SLIGHT = 2-3 cells HPF (0-2); Smudge Cells 13.7 %; Tear Drops SLIGHT = 2-5 cells HPF (0-1)
[2024-03-05] MEDS ORDERED: Ipratropium/Albuterol 3 ML NEB NEB PRN (18:29)
[2024-03-05] MEDS ORDERED: Arformoterol 15 MCG/2 ML NEB NEB PRN (18:29)
[2024-03-05] MEDS ORDERED: Budesonide 0.5 MG/2 ML NEB INH PRN (18:29)
[2024-03-05] MEDS: Ondansetron PF 4 MG/2 ML Vial IVP PRN (19:48)
[2024-03-05] MEDS: ALPRAZolam 0.25 MG TAB PO PRN (19:51)
[2024-03-05] MEDS: Chlorhexidine Gluconate 15 ML UDCUP SSP SCH (19:57)
[2024-03-05] MEDS: Nystatin 500,000 UNITS/5 ML UDCUP PO SCH (19:57)
[2024-03-05] MEDS: Loratadine 10 MG/10 ML UDCUP PO SCH (21:01)
[2024-03-06 05:52] LABS: #Basophils Less than 0.03 10x3/uL (0.0-0.2); %Eosinophils 1.4 % (0.0-10.0); %Lymphocytes 34.7 % (21.0-51.0); %Neutrophils 52.5 % (42.0-75.0); Hematocrit 26.7 % (36.0-47.0); Hemoglobin 8.9 g/dL (12.0-16.0); Mean Corpuscular HGB CONC 33.3 g/dL (32.0-36.0); Mean Corpuscular Hemoglobin 28.8 pg (27.0-31.0); Mean Corpuscular Volume 86.4 fL (78.0-98.0); Mean Platelet Volume 11.9 fL (7.4-10.4); Platelet Count 57 10x3/uL (130-400); RBC Distribution Width 14.7 % (11.5-14.5); Red Blood Cell (RBC) Count 3.09 mill/uL (4.20-5.40)
[2024-03-06 06:03] LABS: Anion Gap 11 mmol/L (10-20); BUN (Urea Nitrogen) 30 mg/dL (7.0-18.7); Calc. Creatinine Clearance 60 mL/min (70-130); Calcium 7.6 mg/dL (7.8-10.44); Carbon Dioxide 19 mmol/L (22-29); Chloride 114 mmol/L (98-107); Estimated GFR 32; Glucose 165 mg/dL (70-105); Potassium 4.2 mmol/L (3.5-5.1); Sodium 140 mmol/L (136-145)
[2024-03-06] MEDS: Enoxaparin 40 MG (0.4 mL) SYRINGE SC SCH (11:12)
[2024-03-06] MEDS: Lidocaine 4% Patch TD SCH (11:12)
[2024-03-06] MEDS: Lactated Ringer's 500 ML IV SCH (11:35)
[2024-03-06] MEDS: Sodium Chloride 0.9% 1,000 ML IV SCH (11:36)
[2024-03-06 13:08] VITALS: BP 143/88; TEMP 97.4
[2024-03-06] MEDS ORDERED: Transdermal Patch Removal TOP SCH (21:00)
== END 2024-03-06 12:24 | disposition home or self-care (01) ==
LOC: INTOOBSV 09:22 → MSONC 09:22
PROVIDERS: ADMIT Internal Medicine; ATTEND Internal Medicine
DX: D83.9 Common variable immunodeficiency, unspecified (principal); E11.10 Type 2 diabetes mellitus with ketoacidosis without coma; N18.4 Chronic kidney disease, stage 4 (severe); E11.22 Type 2 diabetes mellitus with diabetic chronic kidney disease; D63.1 Anemia in chronic kidney disease; D59.19 Other autoimmune hemolytic anemia; D69.3 Immune thrombocytopenic purpura; J45.909 Unspecified asthma, uncomplicated; J18.9 Pneumonia, unspecified organism; F79 Unspecified intellectual disabilities; Z88.8 Allergy status to other drugs, medicaments and biological substances; Z88.0 Allergy status to penicillin
CPT/HCPCS: 36416; 80048; 85025; 96375; 96376; 96413; 96415; G0378; G0379; J1642; J1815; J2405; J7030; J7120; Q5115

== ENCOUNTER 2024-03-19 09:05 | Inpatient (IN) | payer OTHER ==
[2024-03-19] MEDS ORDERED: Glucagon 1 MG/ML KIT IM PRN (09:54)
[2024-03-19] MEDS ORDERED: Dextrose 5% in Water 1,000 ML IV PRN (09:54)
[2024-03-19] MEDS ORDERED: Dextrose 50% Abboject 50 ML SYRINGE SLOW IVP PRN (09:54)
[2024-03-19] MEDS ORDERED: Ipratropium/Albuterol 3 ML NEB NEB PRN (10:08)
[2024-03-19 11:13] LABS: Anion Gap 10 mmol/L (10-20); BUN (Urea Nitrogen) 34 mg/dL (7.0-18.7); Calc. Creatinine Clearance 0 mL/min (70-130); Calcium 8.1 mg/dL (7.8-10.44); Carbon Dioxide 19 mmol/L (22-29); Chloride 112 mmol/L (98-107); Estimated GFR 26; Glucose 319 mg/dL (70-105); Potassium 4.8 mmol/L (3.5-5.1); Sodium 136 mmol/L (136-145)
[2024-03-19 11:19] VITALS: BMI 37.0
[2024-03-19 11:19] LABS: #Basophils Less than 0.03 10x3/uL (0.0-0.2); %Basophils 0.4 % (0.0-1.0); %Eosinophils 1.2 % (0.0-10.0); %Lymphocytes 27.9 % (21.0-51.0); %Monocytes 10.8 % (0.0-10.0); %Neutrophils 57.3 % (42.0-75.0); Hematocrit 26.1 % (36.0-47.0); Hemoglobin 8.9 g/dL (12.0-16.0); Mean Corpuscular HGB CONC 34.1 g/dL (32.0-36.0); Mean Corpuscular Hemoglobin 30.1 pg (27.0-31.0); Mean Corpuscular Volume 88.2 fL (78.0-98.0); Mean Platelet Volume 12.2 fL (7.4-10.4); Platelet Count 49 10x3/uL (130-400); RBC Distribution Width 15.5 % (11.5-14.5); Red Blood Cell (RBC) Count 2.96 mill/uL (4.20-5.40)
[2024-03-19] MEDS: ADMIXTURE FEE IVPB SCH (12:26)
[2024-03-19] MEDS: PRIVIGEN IVPB SCH (12:26)
[2024-03-19] MEDS: Loratadine 10 MG TAB PO SCH (12:27)
[2024-03-19] MEDS: Acetaminophen 500 MG TAB PO SCH (12:27)
[2024-03-19] MEDS: Benzocaine/Menthol 1 LOZ LOZ PO PRN (12:27)
[2024-03-19] MEDS: Dexamethasone 10 MG/ML VIAL SLOW IVP SCH (12:27)
[2024-03-19] MEDS: Insulin Lispro 100 UNIT/ML 10 ML VIAL SC PRN ×2 (12:43→21:39)
[2024-03-19] MEDS: predniSONE 20 MG TAB PO SCH (13:16)
[2024-03-19] MEDS: Budesonide 0.5 MG/2 ML NEB INH SCH (18:55)
[2024-03-19] MEDS: hydrALAZINE 20 MG/ML VIAL SLOW IVP PRN (19:43)
[2024-03-19] MEDS: Ondansetron PF 4 MG/2 ML Vial IVP PRN (20:00)
[2024-03-19] MEDS: ALPRAZolam 0.25 MG TAB PO SCH (20:55)
[2024-03-19] MEDS: Acetaminophen 325 MG TAB PO PRN (20:55)
[2024-03-20 00:45] LABS: Anion Gap 12 mmol/L (10-20); BUN (Urea Nitrogen) 39 mg/dL (7.0-18.7); Calc. Creatinine Clearance 46 mL/min (70-130); Calcium 8.5 mg/dL (7.8-10.44); Carbon Dioxide 15 mmol/L (22-29); Chloride 105 mmol/L (98-107); Estimated GFR 26; Glucose 642 mg/dL (70-105); Potassium 5.4 mmol/L (3.5-5.1); Sodium 127 mmol/L (136-145)
[2024-03-20] MEDS: Sodium Chloride 0.9% 1,000 ML IV SCH ×3 (01:06→21:51)
[2024-03-20] MEDS: Insulin Regular, Human 100 UNIT/ML 10 ML VIAL IVP SCH ×3 (01:47→23:00)
[2024-03-20 05:53] LABS: Hematocrit 27.2 % (36.0-47.0); Hemoglobin 9.3 g/dL (12.0-16.0); Mean Corpuscular HGB CONC 34.2 g/dL (32.0-36.0); Mean Corpuscular Hemoglobin 29.5 pg (27.0-31.0); Mean Corpuscular Volume 86.3 fL (78.0-98.0); Mean Platelet Volume 12.1 fL (7.4-10.4); Platelet Count 57 10x3/uL (130-400); RBC Distribution Width 15.4 % (11.5-14.5); Red Blood Cell (RBC) Count 3.15 mill/uL (4.20-5.40)
[2024-03-20 05:59] LABS: Hemoglobin A1c 6.6 % (4.0-6.0)
[2024-03-20 06:02] LABS: Anion Gap 10 mmol/L (10-20); BUN (Urea Nitrogen) 35 mg/dL (7.0-18.7); Calc. Creatinine Clearance 50 mL/min (70-130); Calcium 7.8 mg/dL (7.8-10.44); Carbon Dioxide 16 mmol/L (22-29); Chloride 111 mmol/L (98-107); Estimated GFR 29; Glucose 316 mg/dL (70-105); Potassium 5.1 mmol/L (3.5-5.1); Sodium 132 mmol/L (136-145)
[2024-03-20 06:32] LABS: Band 3 % (5-11); Hypochromia SLIGHT = 6-15 cells HPF (0-5); Lymphocytes 13 % (21-51); Monocytes 4 % (0-10); Neutrophil 76 % (42-75); Nucleated RBC (Manual Ct) 5 % (0); Platelet Adequacy Comment Platelets Decreased; Polychromasia SLIGHT = 2-3 cells HPF (0-2); Reactive Lymphocytes 4 % (0-10)
[2024-03-20] MEDS: Amlodipine 5 MG TAB PO SCH (10:01)
[2024-03-20] MEDS: Pantoprazole 40 MG DR.TAB PO SCH (10:01)
[2024-03-20] MEDS: predniSONE 20 MG TAB PO SCH (10:02)
[2024-03-20] MEDS: ALPRAZolam 0.25 MG TAB PO SCH (10:03)
[2024-03-20] MEDS: Lidocaine 4% Patch TD SCH (10:04)
[2024-03-20] MEDS: Chlorhexidine Gluconate 15 ML UDCUP SSP SCH (10:04)
[2024-03-20] MEDS: Nystatin 500,000 UNITS/5 ML UDCUP PO SCH (10:04)
[2024-03-20] MEDS: Insulin Lispro 100 UNIT/ML 10 ML VIAL SQ SCH (10:04)
[2024-03-20 17:09] LABS: Bacteria/HPF 2+ HPF (None Seen); Bilirubin Negative (Negative); Blood, Urine 1+ (Negative); Clarity Clear (Clear); Glucose, Urine (Dipstick) Greater than 1000 mg/dL (Negative); Ketone, Urine Negative (Negative); Leukocyte 250 Leu/uL (Negative); Nitrite Negative (Negative); Protein, Urine (Dipstick) 600 mg/dL (Neg-Trace); Specific Gravity, Urine 1.012 (1.002-1.036); Squamous Epithelial 0-3 HPF (0-3); Urobilinogen Normal mg/dL (Less than 2); WBC/HPF 21-50 HPF (0-3)
[2024-03-20 17:30] LABS: Albumin 2.4 g/dL (3.5-5.0); Anion Gap 11 mmol/L (10-20); BUN (Urea Nitrogen) 38 mg/dL (7.0-18.7); Calc. Creatinine Clearance 47 mL/min (70-130); Calcium 8.2 mg/dL (7.8-10.44); Carbon Dioxide 17 mmol/L (22-29); Chloride 108 mmol/L (98-107); Estimated GFR 27; Glucose 559 mg/dL (70-105); Phosphorus 3.4 mg/dL (2.3-4.7); Potassium 4.9 mmol/L (3.5-5.1); Sodium 131 mmol/L (136-145)
[2024-03-20 17:59] LABS: Creatinine, Urine 32.55 mg/dL (16-327)
[2024-03-20] MEDS: Arformoterol 15 MCG/2 ML NEB NEB SCH (18:41)
[2024-03-20] MEDS: Ipratropium/Albuterol 3 ML NEB NEB PRN (18:43)
[2024-03-20 20:09] LABS: Glucose 652 mg/dL (70-105)
[2024-03-20] MEDS ORDERED: Labetalol HCl 100 MG/20 ML VIAL SLOW IVP PRN (20:23)
[2024-03-20] MEDS ORDERED: Clotrimazole 2% 3 Day Vag Cr 22.2 GM TUBE VAG SCH (21:00)
[2024-03-20] MEDS: Sodium Bicarbonate 75 MEQ in Sodium Chloride 0.45% 1,000 ML IV SCH (21:48)
[2024-03-20] MEDS: Transdermal Patch Removal TOP SCH (21:59)
[2024-03-21 01:38] LABS: Chloride 107 mmol/L (98-107); Sodium 131 mmol/L (136-145)
[2024-03-21 01:39] LABS: Albumin 2.2 g/dL (3.5-5.0); Calcium 7.7 mg/dL (7.8-10.44)
[2024-03-21 01:40] LABS: Globulin 3.6 g/dL (2.4-3.5); Protein, Total 5.8 g/dL (6.0-8.3)
[2024-03-21 01:41] LABS: Anion Gap 13 mmol/L (10-20); Carbon Dioxide 16 mmol/L (22-29)
[2024-03-21 01:42] LABS: Alkaline Phosphatase 68 U/L (40-110); Bilirubin, Total 0.2 mg/dL (0.2-1.2)
[2024-03-21 01:43] LABS: Calc. Creatinine Clearance 45 mL/min (70-130); Estimated GFR 26
[2024-03-21 01:44] LABS: BUN (Urea Nitrogen) 42 mg/dL (7.0-18.7)
[2024-03-21 01:45] LABS: ALT (SGPT) 14 U/L (8-55)
[2024-03-21 02:20] LABS: Potassium 4.6 mmol/L (3.5-5.1)
[2024-03-21 02:27] LABS: AST (SGOT) 9 U/L (5-34)
[2024-03-21 02:38] LABS: Glucose 579 mg/dL (70-105)
[2024-03-21] MEDS: Sodium Chloride 0.9% 1,000 ML IV SCH (02:59)
[2024-03-21] MEDS: cloNIDine 0.1 MG TAB PO SCH (02:59)
[2024-03-21 05:52] LABS: Anion Gap 9 mmol/L (10-20); BUN (Urea Nitrogen) 40 mg/dL (7.0-18.7); BUN/Creatinine Ratio 18.69; Calc. Creatinine Clearance 52 mL/min (70-130); Calcium 7.4 mg/dL (7.8-10.44); Carbon Dioxide 19 mmol/L (22-29); Chloride 108 mmol/L (98-107); Estimated GFR 30; Glucose 461 mg/dL (70-105); Phosphorus 3.2 mg/dL (2.3-4.7); Potassium 3.9 mmol/L (3.5-5.1); Sodium 132 mmol/L (136-145)
[2024-03-21] MEDS: Insulin Glargine 30 UNITS/0.3 ML VIAL SC SCH (10:08)
[2024-03-21] MEDS: dilTIAZem CD 240 MG CAP PO SCH (10:08)
[2024-03-21] MEDS: Sodium Chloride 0.9% 500 ML IV SCH (11:39)
[2024-03-21] MEDS: Sodium Bicarbonate 150 MEQ in Sterile Water 1,000 ML IV SCH (16:41)
[2024-03-21 18:28] LABS: Bilirubin Negative (Negative); Blood, Urine 1+ (Negative); Clarity Clear (Clear); Glucose, Urine (Dipstick) 200 mg/dL (Negative); Ketone, Urine Negative (Negative); Leukocyte 500 Leu/uL (Negative); Nitrite Negative (Negative); Protein, Urine (Dipstick) 300 mg/dL (Neg-Trace); RBC/HPF 0-3 HPF (0-3); Specific Gravity, Urine 1.012 (1.002-1.036); Squamous Epithelial 0-3 HPF (0-3); Urobilinogen Normal mg/dL (Less than 2); WBC/HPF Greater than 50 HPF (0-3); pH, Urine 6.5 (5.0-9.0)
[2024-03-21 18:30] LABS: Bacteria/HPF 1+ HPF (None Seen)
[2024-03-22] MEDS: hydrOXYzine 25 MG TAB PO SCH ×3 (02:16→15:10)
[2024-03-22] MEDS: Montelukast Sodium 10 mg Tablet PO SCH (10:26)
[2024-03-22] MEDS: Famotidine 20 MG TAB PO SCH ×2 (10:26→20:02)
[2024-03-23 09:07] VITALS: TEMP 98.5
[2024-03-23 09:17] LABS: Albumin 1.8 g/dL (3.5-5.0); Anion Gap 11 mmol/L (10-20); BUN (Urea Nitrogen) 38 mg/dL (7.0-18.7); BUN/Creatinine Ratio 14.45; Calc. Creatinine Clearance 42 mL/min (70-130); Carbon Dioxide 25 mmol/L (22-29); Chloride 108 mmol/L (98-107); Estimated GFR 24; Glucose 174 mg/dL (70-105); Phosphorus 3.9 mg/dL (2.3-4.7); Potassium 4.3 mmol/L (3.5-5.1); Sodium 140 mmol/L (136-145)
[2024-03-23] MEDS: Albumin 25% 25 GM (100 mL) BOT IVPB SCH ×2 (09:43→13:33)
[2024-03-23 13:34] VITALS: BP 130/84
[2024-03-23] MEDS ORDERED: Famotidine 20 MG TAB PO SCH (21:00)
== END 2024-03-23 13:47 | disposition home or self-care (01) | DRG 809 ==
LOC: MSONC 09:05 → INTOOBSV 09:05 → OBSVTOIN 03-21 08:56
PROVIDERS: ADMIT Internal Medicine; ATTEND Internal Medicine
DX: D81.9 Combined immunodeficiency, unspecified (principal); D61.818 Other pancytopenia; E87.20 Acidosis, unspecified; N18.30 Chronic kidney disease, stage 3 unspecified; J45.909 Unspecified asthma, uncomplicated; G31.84 Mild cognitive impairment of uncertain or unknown etiology; E11.65 Type 2 diabetes mellitus with hyperglycemia; E11.22 Type 2 diabetes mellitus with diabetic chronic kidney disease; Z88.0 Allergy status to penicillin; K21.9 Gastro-esophageal reflux disease without esophagitis; Z88.8 Allergy status to other drugs, medicaments and biological substances
CPT/HCPCS: 36415; 36416; 80048; 80069; 81001; 82010; 82570; 83036; 83605; 84156; 84300; 85025; 87086; 94640; 96375; 96376; 96409; A4217; G0378; G0379; J0360; J1100; J1459; J1815; J2405; J7030; J7512; J7620; J7626; P9047; Q5115

== ENCOUNTER 2024-03-31 15:07 | Emergency (ER) | payer MEDICAID, OTHER ==
[2024-03-31 18:00] LABS: Bilirubin Negative (Negative); Blood, Urine 1+ (Negative); CAUTI Indications for Culture Dysuria,urgency,freq; Clarity Clear (Clear); Glucose, Urine (Dipstick) 300 mg/dL (Negative); Ketone, Urine Negative (Negative); Leukocyte 75 Leu/uL (Negative); Nitrite Negative (Negative); Protein, Urine (Dipstick) 600 mg/dL (Neg-Trace); Specific Gravity, Urine 1.013 (1.002-1.036); Urobilinogen Normal mg/dL (Less than 2); pH, Urine 6.5 (5.0-9.0)
[2024-03-31 18:08] LABS: Bacteria/HPF Rare-Few HPF (None Seen)
[2024-03-31 18:09] LABS: Urine Culture Reflex No No
[2024-03-31] MEDS ORDERED: Ketorolac Tromethamine 30 MG (1 mL) VIAL ONE (19:22)
[2024-03-31 19:54] LABS: #Basophils Less than 0.03 10x3/uL (0.0-0.2); %Basophils 0.7 % (0.0-1.0); %Eosinophils 2.9 % (0.0-10.0); %Lymphocytes 26.6 % (21.0-51.0); %Monocytes 9.9 % (0.0-10.0); %Neutrophils 58.4 % (42.0-75.0); Hematocrit 25.7 % (36.0-47.0); Hemoglobin 8.7 g/dL (12.0-16.0); Mean Corpuscular HGB CONC 33.9 g/dL (32.0-36.0); Mean Corpuscular Volume 88.6 fL (78.0-98.0); Platelet Count 68 10x3/uL (130-400); RBC Distribution Width 16.6 % (11.5-14.5)
[2024-03-31 19:55] LABS: BHCG - Serum Negative (NEGATIVE); Pregs Control Background? CLEAR/WHITE (CLR/WHITE); Pregs Control Bar Appear? YES (CONTROL BAR)
[2024-03-31 19:58] LABS: ALT (SGPT) 9 U/L (Less than 34); AST (SGOT) 19 U/L (11-34); Albumin 2.7 g/dL (3.1-4.5); Alkaline Phosphatase 75 U/L (40-110); Anion Gap 13 mmol/L (10-20); BUN (Urea Nitrogen) 22 mg/dL (7.0-18.7); Bilirubin, Total 0.3 mg/dL (0.3-1.2); Calc. Creatinine Clearance 0 mL/min (70-130); Calcium 8.4 mg/dL (7.8-10.44); Carbon Dioxide 21 mmol/L (22-29); Chloride 110 mmol/L (98-107); Estimated GFR 24; Globulin 2.8 g/dL (2.4-3.5); Glucose 250 mg/dL (70-105); Potassium 4.4 mmol/L (3.5-5.1); Protein, Total 5.5 g/dL (6.0-8.3); Sodium 140 mmol/L (136-145)
[2024-03-31] MEDS ORDERED: Lidocaine 1% (PF) 30 ML VIAL ONE (21:02)
[2024-03-31] MEDS ORDERED: Ibuprofen 800 MG TAB ONE (21:37)
== END 2024-03-31 21:53 | disposition home or self-care (01) ==
LOC: ERS 15:07
DX: L02.11 Cutaneous abscess of neck (principal); I10 Essential (primary) hypertension; E11.9 Type 2 diabetes mellitus without complications; Z55.6 Problems related to health literacy
CPT/HCPCS: 10060; 36415; 36416; 80053; 81001; 83605; 84703; 85025; 96374; J1885

== ENCOUNTER 2024-09-23 00:28 | Inpatient (IN) | payer MEDICAID ==
[2024-09-23 01:26] VITALS: BMI 27.8
[2024-09-23] MEDS ORDERED: Ondansetron PF 4 MG/2 ML Vial IVP PRN (03:08)
[2024-09-23] MEDS ORDERED: Glucagon 1 MG/ML KIT IM PRN (03:24)
[2024-09-23] MEDS ORDERED: Dextrose 50% Abboject 50 ML SYRINGE SLOW IVP PRN (03:24)
[2024-09-23 05:13] LABS: #Basophils Less than 0.03 10x3/uL (0.0-0.2); #Eosinophils Less than 0.03 10x3/uL (0.0-0.7); #Monocytes 0.26 10x3/uL (0.11-0.59); #Neutrophils 1.41 10x3/uL (1.40-6.50); %Basophils 0.4 % (0.0-1.0); %Eosinophils 0.4 % (0.0-10.0); %Lymphocytes 23.2 % (21.0-51.0); %Monocytes 11.6 % (0.0-10.0); %Neutrophils 63.1 % (42.0-75.0); Hematocrit 21.1 % (36.0-47.0); Hemoglobin 6.9 g/dL (12.0-16.0); Mean Corpuscular Hemoglobin 31.1 pg (27.0-31.0); Mean Corpuscular Volume 95.0 fL (78.0-98.0); Platelet Count 37 10x3/uL (130-400); Red Blood Cell (RBC) Count 2.22 mill/uL (4.20-5.40); White Blood Cell (WBC) Count 2.24 10x3/uL (4.8-10.8)
[2024-09-23 06:02] LABS: ALT (SGPT) Less than 7 U/L (Less than 34); AST (SGOT) 12 U/L (11-34); Albumin 2.6 g/dL (3.1-4.5); Alkaline Phosphatase 54 U/L (40-110); Anion Gap 10 mmol/L (10-20); BUN (Urea Nitrogen) 14 mg/dL (7.0-18.7); Bilirubin, Total 0.4 mg/dL (0.3-1.2); Calc. Creatinine Clearance 40 mL/min (70-130); Calcium 8.1 mg/dL (7.8-10.44); Carbon Dioxide 25 mmol/L (22-29); Chloride 102 mmol/L (98-107); Globulin 2.6 g/dL (2.4-3.5); Glucose 153 mg/dL (70-105); Potassium 4.3 mmol/L (3.5-5.1); Sodium 133 mmol/L (136-145)
[2024-09-23] MEDS: Mometasone 100 MCG HFA INHALER (RT USE) INH SCH (08:19)
[2024-09-23] MEDS: Sodium Bicarbonate Tab 325 MG TAB PO SCH (08:31)
[2024-09-23] MEDS: NIFEdipine XL 60 MG ER.TAB PO SCH (08:31)
[2024-09-23] MEDS ORDERED: ALPRAZolam 0.25 MG TAB PO SCH (09:00)
[2024-09-23] MEDS: Acetaminophen 325 MG TAB PO PRN (10:19)
[2024-09-23 13:01] LABS: Influenza A by NAA Not Detected (NotDetected); Influenza B by NAA Not Detected (NotDetected); SARS-CoV-2 NAA Rapid Test Not Detected (NotDetected)
[2024-09-23] MEDS: Mupirocin 1 GM TUBE TP SCH (21:56)
[2024-09-23] MEDS: Famotidine 20 MG TAB PO SCH (21:56)
[2024-09-23] MEDS: ALPRAZolam 0.25 MG TAB PO PRN (22:01)
[2024-09-24 04:26] LABS: ALT (SGPT) Less than 7 U/L (Less than 34); AST (SGOT) 11 U/L (11-34); Albumin 2.7 g/dL (3.1-4.5); Alkaline Phosphatase 54 U/L (40-110); Anion Gap 13 mmol/L (10-20); BUN (Urea Nitrogen) 22 mg/dL (7.0-18.7); Bilirubin, Total 0.4 mg/dL (0.3-1.2); Calc. Creatinine Clearance 29 mL/min (70-130); Calcium 7.9 mg/dL (7.8-10.44); Carbon Dioxide 24 mmol/L (22-29); Chloride 102 mmol/L (98-107); Globulin 2.4 g/dL (2.4-3.5); Glucose 223 mg/dL (70-105); Magnesium 1.7 mg/dL (1.6-2.6); Potassium 4.2 mmol/L (3.5-5.1); Sodium 135 mmol/L (136-145)
[2024-09-24 04:56] LABS: Hematocrit 21.8 % (36.0-47.0); Hemoglobin 7.2 g/dL (12.0-16.0); Mean Corpuscular Hemoglobin 30.6 pg (27.0-31.0); Mean Corpuscular Volume 92.8 fL (78.0-98.0); Platelet Count 32 10x3/uL (130-400); Red Blood Cell (RBC) Count 2.35 mill/uL (4.20-5.40); White Blood Cell (WBC) Count 2.01 10x3/uL (4.8-10.8)
[2024-09-24 05:27] LABS: Nucleated RBC (Manual Ct) 2 % (0); Other Cell Types 1.0; Platelet Adequacy Comment Platelets Decreased; RBC Morphology Within Normal Limits; Smudge Cells 1.0 %
[2024-09-24] MEDS ORDERED: Heparin 10,000 UNITS/ 10 ML VIAL ONE (08:47)
[2024-09-24] MEDS ORDERED: Non-Formulary Item 1 EACH (Butalb/Acetaminophen/Caffeine [Butalb-Acetamin-Caff 50-325-40] PO PRN (09:25)
[2024-09-24] MEDS: NIFEdipine XL 60 MG ER.TAB PO SCH (13:37)
[2024-09-24] MEDS: guaiFENesin/DM ER PO SCH (22:21)
[2024-09-25 04:53] LABS: ALT (SGPT) Less than 7 U/L (Less than 34); AST (SGOT) 14 U/L (11-34); Albumin 2.6 g/dL (3.1-4.5); Alkaline Phosphatase 60 U/L (40-110); Anion Gap 11 mmol/L (10-20); BUN (Urea Nitrogen) 15 mg/dL (7.0-18.7); Bilirubin, Total 0.6 mg/dL (0.3-1.2); Calc. Creatinine Clearance 41 mL/min (70-130); Calcium 8.1 mg/dL (7.8-10.44); Carbon Dioxide 29 mmol/L (22-29); Chloride 103 mmol/L (98-107); Globulin 2.5 g/dL (2.4-3.5); Glucose 111 mg/dL (70-105); Magnesium 1.6 mg/dL (1.6-2.6); Potassium 4.4 mmol/L (3.5-5.1); Sodium 139 mmol/L (136-145)
[2024-09-25 05:05] LABS: Hematocrit 23.4 % (36.0-47.0); Hemoglobin 7.7 g/dL (12.0-16.0); Mean Corpuscular Hemoglobin 30.3 pg (27.0-31.0); Mean Corpuscular Volume 92.1 fL (78.0-98.0); Platelet Count 28 10x3/uL (130-400); Red Blood Cell (RBC) Count 2.54 mill/uL (4.20-5.40); White Blood Cell (WBC) Count 1.78 10x3/uL (4.8-10.8)
[2024-09-25 06:46] LABS: Anisocytosis SLIGHT = 6-15 cells HPF (0-5); Macrocytosis SLIGHT = 6-15 cells HPF (0-5); Platelet Adequacy Comment Significant Decrease; Polychromasia SLIGHT = 2-3 cells HPF (0-2); Smudge Cells 3.9 %
[2024-09-25] MEDS: Amoxicillin/Potassium Clav 875 MG TAB PO SCH (10:11)
[2024-09-26 03:55] LABS: Hematocrit 20.6 % (36.0-47.0); Hemoglobin 6.8 g/dL (12.0-16.0); Mean Corpuscular Hemoglobin 30.6 pg (27.0-31.0); Mean Corpuscular Volume 92.8 fL (78.0-98.0); Platelet Count 40 10x3/uL (130-400); Red Blood Cell (RBC) Count 2.22 mill/uL (4.20-5.40); White Blood Cell (WBC) Count 1.46 10x3/uL (4.8-10.8)
[2024-09-26 04:25] LABS: ALT (SGPT) Less than 7 U/L (Less than 34); AST (SGOT) 15 U/L (11-34); Albumin 2.6 g/dL (3.1-4.5); Alkaline Phosphatase 76 U/L (40-110); Anion Gap 12 mmol/L (10-20); BUN (Urea Nitrogen) 25 mg/dL (7.0-18.7); Bilirubin, Total 0.2 mg/dL (0.3-1.2); Calc. Creatinine Clearance 29 mL/min (70-130); Calcium 7.9 mg/dL (7.8-10.44); Carbon Dioxide 25 mmol/L (22-29); Chloride 104 mmol/L (98-107); Globulin 2.6 g/dL (2.4-3.5); Glucose 259 mg/dL (70-105); Magnesium 1.6 mg/dL (1.6-2.6); Platelet Adequacy Comment Platelets Decreased; Polychromasia SLIGHT = 2-3 cells HPF (0-2); Potassium 4.2 mmol/L (3.5-5.1); Smudge Cells 16.8 %; Sodium 137 mmol/L (136-145)
[2024-09-26] MEDS: EPOETIN ALFA-EPBX (ESRD) 40,000 UNITS/ML VIAL SC SCH (08:06)
[2024-09-26] MEDS ORDERED: Heparin 10,000 UNITS/ 10 ML VIAL ONE (09:25)
[2024-09-26] MEDS: Sodium Ferric Gluconate 250 MG in Sodium Chloride 0.9% 250 ML 250 ML IVPB SCH (13:56)
[2024-09-26] MEDS: Benzonatate 100 MG CAP PO PRN (14:06)
[2024-09-26] MEDS: Calcium Carbonate 500 MG ChewTAB PO PRN (18:25)
[2024-09-27 05:19] LABS: Hematocrit 23.5 % (36.0-47.0); Hemoglobin 7.8 g/dL (12.0-16.0); Mean Corpuscular Hemoglobin 29.7 pg (27.0-31.0); Mean Corpuscular Volume 89.4 fL (78.0-98.0); Platelet Count 42 10x3/uL (130-400); Red Blood Cell (RBC) Count 2.63 mill/uL (4.20-5.40); White Blood Cell (WBC) Count 1.55 10x3/uL (4.8-10.8)
[2024-09-27 05:51] LABS: Anisocytosis SLIGHT = 6-15 cells HPF (0-5); Macrocytosis SLIGHT = 6-15 cells HPF (0-5); Ovalocytes SLIGHT = 2-5 cells HPF (0-1); Platelet Adequacy Comment Significant Decrease; Polychromasia SLIGHT = 2-3 cells HPF (0-2); Smudge Cells 14.4 %
[2024-09-27] MEDS: Benzocaine/Menthol 1 LOZ LOZ PO PRN (08:22)
[2024-09-27 08:37] LABS: Anion Gap 12 mmol/L (10-20); BUN (Urea Nitrogen) 13 mg/dL (7.0-18.7); Calc. Creatinine Clearance 42 mL/min (70-130); Calcium 8.8 mg/dL (7.8-10.44); Carbon Dioxide 26 mmol/L (22-29); Chloride 106 mmol/L (98-107); Glucose 189 mg/dL (70-105); Potassium 4.0 mmol/L (3.5-5.1); Sodium 140 mmol/L (136-145)
[2024-09-27] MEDS: Fioricet 325/50/40 mg Tablet PO PRN (13:59)
[2024-09-27] MEDS: Transdermal Patch Removal TOP SCH (22:03)
[2024-09-28 00:14] LABS: Hematocrit 23.0 % (36.0-47.0); Hemoglobin 7.7 g/dL (12.0-16.0)
[2024-09-28 05:12] LABS: Hematocrit 23.1 % (36.0-47.0); Hemoglobin 7.5 g/dL (12.0-16.0); Mean Corpuscular Hemoglobin 29.2 pg (27.0-31.0); Mean Corpuscular Volume 89.9 fL (78.0-98.0); Platelet Count 42 10x3/uL (130-400); Red Blood Cell (RBC) Count 2.57 mill/uL (4.20-5.40); White Blood Cell (WBC) Count 1.63 10x3/uL (4.8-10.8)
[2024-09-28 06:01] LABS: Anion Gap 11 mmol/L (10-20); BUN (Urea Nitrogen) 21 mg/dL (7.0-18.7); Calc. Creatinine Clearance 32 mL/min (70-130); Calcium 8.3 mg/dL (7.8-10.44); Carbon Dioxide 25 mmol/L (22-29); Chloride 106 mmol/L (98-107); Glucose 114 mg/dL (70-105); Potassium 4.1 mmol/L (3.5-5.1); Sodium 138 mmol/L (136-145)
[2024-09-28 06:01] LABS: Nucleated RBC (Manual Ct) 1 % (0); Platelet Adequacy Comment Platelets Decreased; Polychromasia SLIGHT = 2-3 cells HPF (0-2); Smudge Cells 18.4 %
[2024-09-28] MEDS: EPOETIN ALFA-EPBX (ESRD) 10,000 UNITS/ML VIAL SC SCH (09:53)
[2024-09-28] MEDS: Transdermal Patch Removal TOP SCH (20:25)
[2024-09-29 04:33] LABS: Hematocrit 25.2 % (36.0-47.0); Hemoglobin 8.3 g/dL (12.0-16.0); Mean Corpuscular Hemoglobin 29.4 pg (27.0-31.0); Mean Corpuscular Volume 89.4 fL (78.0-98.0); Platelet Count 61 10x3/uL (130-400); Red Blood Cell (RBC) Count 2.82 mill/uL (4.20-5.40); White Blood Cell (WBC) Count 2.30 10x3/uL (4.8-10.8)
[2024-09-29 05:03] LABS: Anion Gap 14 mmol/L (10-20); BUN (Urea Nitrogen) 32 mg/dL (7.0-18.7); Calc. Creatinine Clearance 26 mL/min (70-130); Calcium 8.9 mg/dL (7.8-10.44); Carbon Dioxide 21 mmol/L (22-29); Chloride 105 mmol/L (98-107); Glucose 115 mg/dL (70-105); Potassium 4.4 mmol/L (3.5-5.1); Sodium 136 mmol/L (136-145)
[2024-09-29 06:42] LABS: Anisocytosis SLIGHT = 6-15 cells HPF (0-5); Macrocytosis SLIGHT = 6-15 cells HPF (0-5); Ovalocytes SLIGHT = 2-5 cells HPF (0-1); Platelet Adequacy Comment Platelets Decreased; Polychromasia SLIGHT = 2-3 cells HPF (0-2); Smudge Cells 2.9 %
[2024-09-29 10:33] VITALS: BMI 34.5
[2024-09-29] MEDS ORDERED: Heparin 10,000 UNITS/ 10 ML VIAL ONE (11:38)
[2024-09-29 21:58] LABS: Hematocrit 22.8 % (36.0-47.0); Hemoglobin 7.6 g/dL (12.0-16.0)
[2024-09-30] MEDS: Amoxicillin/Potassium Clav 500 MG TAB PO SCH (09:00)
[2024-09-30 11:51] VITALS: BP 118/82; TEMP 97.5
== END 2024-09-30 13:41 | disposition home or self-care (01) | DRG 871 ==
LOC: OBS 00:45 → OBSVTOIN 09:56 → MSONC 16:26
PROVIDERS: ADMIT Student in an Organized Health Care Education/Training Program; ATTEND Internal Medicine
PROC: 30233N1 Transfusion of Nonautologous Red Blood Cells into Peripheral Vein, Percutaneous Approach (ICD-10-PCS; principal; 2024-09-23)
PROC: 3E03329 Introduction of Other Anti-infective into Peripheral Vein, Percutaneous Approach (ICD-10-PCS; 2024-09-23)
PROC: 30233R1 Transfusion of Nonautologous Platelets into Peripheral Vein, Percutaneous Approach (ICD-10-PCS; 2024-09-25)
DX: A41.9 Sepsis, unspecified organism (principal); N17.0 Acute kidney failure with tubular necrosis; N18.6 End stage renal disease; D61.818 Other pancytopenia; I12.0 Hypertensive chronic kidney disease with stage 5 chronic kidney disease or end stage renal disease; N13.30 Unspecified hydronephrosis; D84.821 Immunodeficiency due to drugs; J45.909 Unspecified asthma, uncomplicated; D63.1 Anemia in chronic kidney disease; E10.65 Type 1 diabetes mellitus with hyperglycemia; N85.6 Intrauterine synechiae; E10.22 Type 1 diabetes mellitus with diabetic chronic kidney disease; D69.6 Thrombocytopenia, unspecified; K21.9 Gastro-esophageal reflux disease without esophagitis; Z88.1 Allergy status to other antibiotic agents; Z88.0 Allergy status to penicillin; Z88.8 Allergy status to other drugs, medicaments and biological substances; Z99.2 Dependence on renal dialysis; T50.995A Adverse effect of other drugs, medicaments and biological substances, initial encounter; Z79.2 Long term (current) use of antibiotics
CPT/HCPCS: 36415; 36416; 36430; 76770; 80048; 80053; 83735; 83880; 85025; 86850; 86900; 86901; 86922; 87040; 87636; 90935; 93005; 93010; 94640; G0257; G0378; J1644; J1815; J2270; J2543; J2916; J7050; J7620; J7626; P9035; P9040; Q0162; Q5105

== ENCOUNTER 2024-10-10 16:59 | Emergency (ER) | payer MEDICAID ==
[2024-10-10 18:23] LABS: Hematocrit 18.3 % (36.0-47.0); Hemoglobin 6.0 g/dL (12.0-16.0); Mean Corpuscular Hemoglobin 30.0 pg (27.0-31.0); Mean Corpuscular Volume 91.5 fL (78.0-98.0); Platelet Count 60 10x3/uL (130-400); Red Blood Cell (RBC) Count 2.00 mill/uL (4.20-5.40); White Blood Cell (WBC) Count 1.63 10x3/uL (4.8-10.8)
[2024-10-10 18:29] LABS: ALT (SGPT) Less than 7 U/L (Less than 34); AST (SGOT) 11 U/L (11-34); Albumin 2.8 g/dL (3.1-4.5); Alkaline Phosphatase 78 U/L (40-110); Anion Gap 14 mmol/L (10-20); BUN (Urea Nitrogen) 8 mg/dL (7.0-18.7); Bilirubin, Total 0.2 mg/dL (0.3-1.2); Calc. Creatinine Clearance 0 mL/min (70-130); Calcium 7.9 mg/dL (7.8-10.44); Carbon Dioxide 28 mmol/L (22-29); Chloride 101 mmol/L (98-107); Globulin 2.0 g/dL (2.4-3.5); Glucose 272 mg/dL (70-105); Potassium 3.1 mmol/L (3.5-5.1); Sodium 140 mmol/L (136-145)
[2024-10-10 19:18] LABS: Platelet Adequacy Comment Platelets Decreased; Polychromasia SLIGHT = 2-3 cells HPF (0-2); Schistocytes SLIGHT = 2-5 cells HPF (0-1)
[2024-10-10] MEDS ORDERED: Ondansetron PF 4 MG/2 ML Vial ONE (20:38)
== END 2024-10-10 22:15 | disposition home or self-care (01) ==
LOC: ERS 16:59
DX: D64.9 Anemia, unspecified (principal); N92.0 Excessive and frequent menstruation with regular cycle; I10 Essential (primary) hypertension; E11.9 Type 2 diabetes mellitus without complications; Z99.2 Dependence on renal dialysis
CPT/HCPCS: 36430; 80053; 85025; 86850; 86900; 86901; 86922; 96374; J2405; J3010; P9040

== ENCOUNTER 2024-10-14 08:54 | Day surgery (SDC) | payer MEDICAID ==
[2024-10-14 09:59] LABS: Hematocrit 22.8 % (36.0-47.0); Hemoglobin 7.3 g/dL (12.0-16.0); Mean Corpuscular Hemoglobin 30.0 pg (27.0-31.0); Mean Corpuscular Volume 93.8 fL (78.0-98.0); Platelet Count 56 10x3/uL (130-400); Red Blood Cell (RBC) Count 2.43 mill/uL (4.20-5.40); White Blood Cell (WBC) Count 1.60 10x3/uL (4.8-10.8)
[2024-10-14] MEDS: Dexamethasone 10 MG/ML VIAL ONE (10:05)
[2024-10-14 10:12] VITALS: BP 166/86; TEMP 98.1
[2024-10-14] MEDS: Dexamethasone 10 MG/ML VIAL SLOW IVP SCH (10:13)
[2024-10-14] MEDS: ADMIXTURE FEE CHEMO IVPB SCH (10:33)
[2024-10-14] MEDS: PRIVIGEN IVPB SCH (10:33)
[2024-10-14 10:35] LABS: Anisocytosis SLIGHT = 6-15 cells HPF (0-5); Platelet Adequacy Comment Platelets Normal; Polychromasia SLIGHT = 2-3 cells HPF (0-2); Smudge Cells 11.9 %
[2024-10-14] MEDS: Acetaminophen 500 MG TAB ONE (11:00)
[2024-10-14] MEDS: Acetaminophen 500 MG TAB PO SCH (11:32)
== END 2024-10-14 13:06 | disposition short-term general hospital (02) ==
LOC: ONC/OP 08:54
PROVIDERS: ATTEND Internal Medicine
DX: D59.19 Other autoimmune hemolytic anemia (principal); D58.9 Hereditary hemolytic anemia, unspecified; D80.1 Nonfamilial hypogammaglobulinemia; D70.8 Other neutropenia; D69.3 Immune thrombocytopenic purpura; D83.9 Common variable immunodeficiency, unspecified; N18.4 Chronic kidney disease, stage 4 (severe); D63.1 Anemia in chronic kidney disease; L30.9 Dermatitis, unspecified; Z87.01 Personal history of pneumonia (recurrent)
CPT/HCPCS: 36416; 85025; 96365; 96366; 96367; 99212; G0463; J1100; J1459

== ENCOUNTER 2024-10-14 12:32 | Emergency (ER) | payer MEDICAID ==
[2024-10-14] MEDS ORDERED: hydrALAZINE 20 MG/ML VIAL ONE (13:48)
[2024-10-14] MEDS ORDERED: Prochlorperazine 10 MG/2 ML VIAL ONE (13:49)
[2024-10-14] MEDS ORDERED: Magnesium 2 GM/50 ML BAG (IN WATER) ONE (13:49)
[2024-10-14 14:20] LABS: BHCG - Serum Negative (NEGATIVE); Pregs Control Background? CLEAR/WHITE (CLR/WHITE); Pregs Control Bar Appear? YES (CONTROL BAR)
[2024-10-14 14:21] LABS: Hematocrit 22.6 % (36.0-47.0); Hemoglobin 7.2 g/dL (12.0-16.0); Mean Corpuscular Hemoglobin 29.8 pg (27.0-31.0); Mean Corpuscular Volume 93.4 fL (78.0-98.0); Platelet Count 55 10x3/uL (130-400); Red Blood Cell (RBC) Count 2.42 mill/uL (4.20-5.40); White Blood Cell (WBC) Count 2.39 10x3/uL (4.8-10.8)
[2024-10-14 14:27] LABS: Bacteria/HPF None Seen HPF (None Seen); CAUTI Indications for Culture Alt mental st,lethar; Glucose, Urine (Dipstick) 300 mg/dL (Negative); Leukocyte 75 Leu/uL (Negative); Protein, Urine (Dipstick) 300 mg/dL (Neg-Trace); RBC/HPF Greater than 50 HPF (0-3); Specific Gravity, Urine 1.009 (1.002-1.036)
[2024-10-14 14:28] LABS: Urine Culture Reflex No No
[2024-10-14 14:30] LABS: ALT (SGPT) 7 U/L (Less than 34); AST (SGOT) 15 U/L (11-34); Albumin 3.0 g/dL (3.1-4.5); Alkaline Phosphatase 83 U/L (40-110); Anion Gap 13 mmol/L (10-20); BUN (Urea Nitrogen) 19 mg/dL (7.0-18.7); Bilirubin, Total 0.6 mg/dL (0.3-1.2); Calc. Creatinine Clearance 0 mL/min (70-130); Calcium 8.0 mg/dL (7.8-10.44); Carbon Dioxide 24 mmol/L (22-29); Chloride 105 mmol/L (98-107); Globulin 2.6 g/dL (2.4-3.5); Glucose 277 mg/dL (70-105); Lipase 50 U/L (8-78); Potassium 4.0 mmol/L (3.5-5.1); Sodium 138 mmol/L (136-145)
[2024-10-14 14:49] LABS: Anisocytosis SLIGHT = 6-15 cells HPF (0-5); Platelet Adequacy Comment Platelets Decreased; Polychromasia SLIGHT = 2-3 cells HPF (0-2); Smudge Cells 3.9 %
[2024-10-14] MEDS ORDERED: Iopamidol-370 76% 500 ML MDV (1 ML CHARGE) ONE (15:29)
== END 2024-10-14 18:20 | disposition home or self-care (01) ==
LOC: ERS 12:32
DX: R51.9 Headache, unspecified (principal); T50.Z15A Adverse effect of immunoglobulin, initial encounter; E11.22 Type 2 diabetes mellitus with diabetic chronic kidney disease; I12.9 Hypertensive chronic kidney disease with stage 1 through stage 4 chronic kidney disease, or unspecified chronic kidney disease; N18.30 Chronic kidney disease, stage 3 unspecified; Z99.2 Dependence on renal dialysis; Z79.899 Other long term (current) drug therapy; Z79.4 Long term (current) use of insulin; Z79.84 Long term (current) use of oral hypoglycemic drugs
CPT/HCPCS: 36415; 70450; 71275; 80053; 81001; 83690; 84443; 84484; 84703; 93005; 96374; 96375; J0360; J0780; J1642; J2270; J3475; Q0162; Q9967

== ENCOUNTER → 2024-10-16 | Day surgery (SDC) | payer MEDICAID ==
[~2024-10-16] MED LIST changes: +PNEUMOC 20-VAL CONJ-DIP CRM/PF 0.5 ML SYRINGE IM ONE
[2024-10-16 14:07] VITALS: BP 172/91; TEMP 97.9
== END ==
LOC: ONC/OP 10:07
PROVIDERS: ATTEND Internal Medicine
DX: D64.9 Anemia, unspecified (principal); Z88.1 Allergy status to other antibiotic agents; Z88.8 Allergy status to other drugs, medicaments and biological substances; Z88.0 Allergy status to penicillin
CPT/HCPCS: 36430; 86850; 86870; 86900; 86901; 86922; J1642; P9040

== ENCOUNTER 2024-10-17 21:49 | Inpatient (IN) | payer MEDICAID ==
[2024-10-18 02:15] VITALS: BMI 33.7
[2024-10-18] MEDS ORDERED: Glucagon 1 MG/ML KIT IM PRN ×2 (02:19→11:38)
[2024-10-18] MEDS ORDERED: Dextrose 50% Abboject 50 ML SYRINGE SLOW IVP PRN ×2 (02:19→11:38)
[2024-10-18] MEDS ORDERED: ALPRAZolam 0.25 MG TAB PO PRN (02:24)
[2024-10-18] MEDS ORDERED: hydrALAZINE 20 MG/ML VIAL SLOW IVP SCH (02:30)
[2024-10-18] MEDS: hydrALAZINE 20 MG/ML VIAL SLOW IVP SCH ×4 (02:40→06:25)
[2024-10-18] MEDS: cefTRIAXone\\ROCEPHIN 1 GM in Sodium Chloride 0.9% 100 ML IVPB SCH (03:49)
[2024-10-18 07:19] LABS: ALT (SGPT) Less than 7 U/L (Less than 34); AST (SGOT) 17 U/L (11-34); Albumin 3.0 g/dL (3.1-4.5); Alkaline Phosphatase 84 U/L (40-110); Anion Gap 16 mmol/L (10-20); BUN (Urea Nitrogen) 17 mg/dL (7.0-18.7); Bilirubin, Total 0.5 mg/dL (0.3-1.2); Calc. Creatinine Clearance 44 mL/min (70-130); Calcium 8.3 mg/dL (7.8-10.44); Carbon Dioxide 22 mmol/L (22-29); Chloride 100 mmol/L (98-107); Globulin 2.8 g/dL (2.4-3.5); Glucose 577 mg/dL (70-105); Potassium 4.1 mmol/L (3.5-5.1); Sodium 134 mmol/L (136-145)
[2024-10-18 07:25] LABS: #Basophils Less than 0.03 10x3/uL (0.0-0.2); #Eosinophils Less than 0.03 10x3/uL (0.0-0.7); #Monocytes 0.04 10x3/uL (0.11-0.59); #Neutrophils 1.28 10x3/uL (1.40-6.50); %Basophils 0.6 % (0.0-1.0); %Eosinophils 0.0 % (0.0-10.0); %Lymphocytes 10.8 % (21.0-51.0); %Monocytes 2.5 % (0.0-10.0); %Neutrophils 81.6 % (42.0-75.0); Hematocrit 27.6 % (36.0-47.0); Hemoglobin 9.0 g/dL (12.0-16.0); Mean Corpuscular Hemoglobin 29.8 pg (27.0-31.0); Mean Corpuscular Volume 91.4 fL (78.0-98.0); Platelet Count 38 10x3/uL (130-400); Red Blood Cell (RBC) Count 3.02 mill/uL (4.20-5.40); White Blood Cell (WBC) Count 1.57 10x3/uL (4.8-10.8)
[2024-10-18] MEDS: Sodium Bicarbonate Tab 325 MG TAB PO SCH (08:40)
[2024-10-18] MEDS: ALPRAZolam 0.25 MG TAB PO SCH (08:40)
[2024-10-18] MEDS ORDERED: hydrOXYzine 10 MG/5 ML SYRUP UDCUP PO SCH (09:00)
[2024-10-18] MEDS ORDERED: Famotidine 20 MG TAB PO SCH ×2 (09:00)
[2024-10-18] MEDS ORDERED: Albuterol 200 PUFF (6.7GM INHALER) INH SCH (09:00)
[2024-10-18] MEDS ORDERED: ALPRAZolam 0.25 MG TAB PO SCH (09:00)
[2024-10-18 12:26] LABS: Glucose 736 mg/dL (70-105)
[2024-10-18] MEDS: Insulin Glargine 30 UNITS/0.3 ML VIAL SC SCH (12:37)
[2024-10-18 15:31] LABS: Glucose 734 mg/dL (70-105)
[2024-10-18 17:20] LABS: Glucose 619 mg/dL (70-105)
[2024-10-18] MEDS: Fioricet 325/50/40 mg Tablet PO PRN (18:37)
[2024-10-19] MEDS: cefTRIAXone\\ROCEPHIN 2 GM in Sodium Chloride 0.9% 100 ML IVPB SCH (06:55)
[2024-10-19 07:32] LABS: Anion Gap 13 mmol/L (10-20); BUN (Urea Nitrogen) 40 mg/dL (7.0-18.7); Calc. Creatinine Clearance 35 mL/min (70-130); Calcium 7.8 mg/dL (7.8-10.44); Carbon Dioxide 22 mmol/L (22-29); Chloride 99 mmol/L (98-107); Glucose 585 mg/dL (70-105); Potassium 4.2 mmol/L (3.5-5.1); Sodium 130 mmol/L (136-145)
[2024-10-19] MEDS: Insulin Glargine 30 UNITS/0.3 ML VIAL SC SCH (10:55)
[2024-10-19 12:29] VITALS: BMI 33.7
[2024-10-19] MEDS ORDERED: UDCUP PO PRN (12:38)
[2024-10-19] MEDS ORDERED: HYOSCYAMINE 0.125 MG PO PRN (12:38)
[2024-10-19] MEDS: Ondansetron PF 4 MG/2 ML Vial IVP PRN (17:38)
[2024-10-19] MEDS: NIFEdipine XL 30 MG ER.TAB PO SCH (20:45)
[2024-10-20 07:35] LABS: Albumin 2.5 g/dL (3.1-4.5); Anion Gap 11 mmol/L (10-20); BUN (Urea Nitrogen) 41 mg/dL (7.0-18.7); BUN/Creatinine Ratio 11.92; Calc. Creatinine Clearance 32 mL/min (70-130); Calcium 7.6 mg/dL (7.8-10.44); Carbon Dioxide 22 mmol/L (22-29); Chloride 106 mmol/L (98-107); Glucose 291 mg/dL (70-105); Magnesium 1.5 mg/dL (1.6-2.6); Potassium 3.4 mmol/L (3.5-5.1); Sodium 136 mmol/L (136-145)
[2024-10-20] MEDS ORDERED: Heparin 10,000 UNITS/ 10 ML VIAL ONE (09:06)
[2024-10-20] MEDS: Magnesium Sulfate In Water 4 GM in Premix 1 BAG IVPB SCH (18:15)
[2024-10-20] MEDS: Mupirocin 1 GM TUBE TP SCH (20:45)
[2024-10-20] MEDS: Vancomycin 1 GM in Premix 1 BAG IVPB SCH (23:59)
[2024-10-21] MEDS ORDERED: Vancomycin Diaylsis Sliding Scale (Wt 71-99) FS SCH (00:15)
[2024-10-21] MEDS: VANCOMYCIN 1.75 GM/350 ML Premix BAG IVPB SCH (01:18)
[2024-10-21] MEDS: PNEUMOC 20-VAL CONJ-DIP CRM/PF 0.5 ML SYRINGE IM ONE (09:36)
[2024-10-21 12:27] LABS: Hematocrit 27.4 % (36.0-47.0); Hemoglobin 9.2 g/dL (12.0-16.0); Mean Corpuscular Hemoglobin 30.9 pg (27.0-31.0); Mean Corpuscular Volume 91.9 fL (78.0-98.0); Platelet Count 34 10x3/uL (130-400); Red Blood Cell (RBC) Count 2.98 mill/uL (4.20-5.40); White Blood Cell (WBC) Count 1.80 10x3/uL (4.8-10.8)
[2024-10-21 12:42] LABS: Anion Gap 12 mmol/L (10-20); BUN (Urea Nitrogen) 20 mg/dL (7.0-18.7); Calc. Creatinine Clearance 42 mL/min (70-130); Calcium 7.7 mg/dL (7.8-10.44); Carbon Dioxide 25 mmol/L (22-29); Chloride 100 mmol/L (98-107); Glucose 333 mg/dL (70-105); Magnesium 2.4 mg/dL (1.6-2.6); Potassium 3.9 mmol/L (3.5-5.1); Sodium 133 mmol/L (136-145)
[2024-10-21 13:23] LABS: Macrocytosis SLIGHT = 6-15 cells HPF (0-5); Platelet Adequacy Comment Platelets Decreased; Polychromasia SLIGHT = 2-3 cells HPF (0-2); Schistocytes SLIGHT = 2-5 cells HPF (0-1); Smudge Cells 2.0 %
[2024-10-22 05:58] LABS: Anion Gap 13 mmol/L (10-20); BUN (Urea Nitrogen) 29 mg/dL (7.0-18.7); Calc. Creatinine Clearance 34 mL/min (70-130); Calcium 7.8 mg/dL (7.8-10.44); Carbon Dioxide 25 mmol/L (22-29); Chloride 103 mmol/L (98-107); Glucose 211 mg/dL (70-105); Hematocrit 23.5 % (36.0-47.0); Hemoglobin 7.6 g/dL (12.0-16.0); Mean Corpuscular Hemoglobin 30.2 pg (27.0-31.0); Mean Corpuscular Volume 93.3 fL (78.0-98.0); Platelet Count 25 10x3/uL (130-400); Potassium 4.5 mmol/L (3.5-5.1); Red Blood Cell (RBC) Count 2.52 mill/uL (4.20-5.40); Sodium 136 mmol/L (136-145); White Blood Cell (WBC) Count 1.33 10x3/uL (4.8-10.8)
[2024-10-22 06:36] LABS: Vancomycin, Trough 23.7 ug/mL
[2024-10-22 06:47] LABS: Platelet Adequacy Comment Platelets Decreased; RBC Morphology Within Normal Limits; Smudge Cells 11.0 %
[2024-10-22] MEDS ORDERED: Iopamidol 370 76% 100 ML VIAL ONE (09:10)
[2024-10-22] MEDS: Fluconazole 100 MG TAB PO SCH (10:18)
[2024-10-22] MEDS ORDERED: Heparin 10,000 UNITS/ 10 ML VIAL ONE (14:51)
[2024-10-23] MEDS: Acetaminophen 325 MG TAB PO PRN (02:32)
[2024-10-23 06:37] LABS: Hematocrit 22.5 % (36.0-47.0); Hemoglobin 7.1 g/dL (12.0-16.0); Mean Corpuscular Hemoglobin 29.5 pg (27.0-31.0); Mean Corpuscular Volume 93.4 fL (78.0-98.0); Platelet Count 26 10x3/uL (130-400); Red Blood Cell (RBC) Count 2.41 mill/uL (4.20-5.40); White Blood Cell (WBC) Count 1.35 10x3/uL (4.8-10.8)
[2024-10-23 06:44] LABS: Anion Gap 9 mmol/L (10-20); BUN (Urea Nitrogen) 14 mg/dL (7.0-18.7); Calc. Creatinine Clearance 54 mL/min (70-130); Calcium 7.6 mg/dL (7.8-10.44); Carbon Dioxide 29 mmol/L (22-29); Chloride 103 mmol/L (98-107); Glucose 175 mg/dL (70-105); Potassium 4.3 mmol/L (3.5-5.1); Sodium 137 mmol/L (136-145)
[2024-10-23 08:55] LABS: Anisocytosis SLIGHT = 6-15 cells HPF (0-5); Nucleated RBC (Manual Ct) 1 % (0); Platelet Adequacy Comment Platelets Decreased; Polychromasia SLIGHT = 2-3 cells HPF (0-2); RBC Morphology Within Normal Limits; Smudge Cells 15.0 %
[2024-10-24] MEDS: HYDROcodone/Acetaminophen 5/325 mg Tablet PO PRN (01:59)
[2024-10-24 06:44] LABS: Anion Gap 11 mmol/L (10-20); BUN (Urea Nitrogen) 27 mg/dL (7.0-18.7); Calc. Creatinine Clearance 38 mL/min (70-130); Calcium 8.0 mg/dL (7.8-10.44); Carbon Dioxide 25 mmol/L (22-29); Chloride 105 mmol/L (98-107); Glucose 299 mg/dL (70-105); Potassium 5.0 mmol/L (3.5-5.1); Sodium 136 mmol/L (136-145)
[2024-10-24 07:20] LABS: Hematocrit 23.4 % (36.0-47.0); Hemoglobin 7.5 g/dL (12.0-16.0); Mean Corpuscular Hemoglobin 30.1 pg (27.0-31.0); Mean Corpuscular Volume 94.0 fL (78.0-98.0); Platelet Count 29 10x3/uL (130-400); Red Blood Cell (RBC) Count 2.49 mill/uL (4.20-5.40); White Blood Cell (WBC) Count 1.53 10x3/uL (4.8-10.8)
[2024-10-24 07:41] LABS: Macrocytosis SLIGHT = 6-15 cells HPF (0-5); Nucleated RBC (Manual Ct) 1 % (0); Platelet Adequacy Comment Significant Decrease; Polychromasia SLIGHT = 2-3 cells HPF (0-2)
[2024-10-24] MEDS ORDERED: Heparin 10,000 UNITS/ 10 ML VIAL ONE (09:00)
[2024-10-24] MEDS: EPOETIN ALFA-EPBX (ESRD) 10,000 UNITS/ML VIAL SC SCH (09:09)
[2024-10-24 12:28] LABS: Vancomycin, Trough 9.6 ug/mL
[2024-10-24] MEDS: Vancomycin HCl 1.25 GM in Sodium Chloride 0.9% 250 ML 250 ML IVPB SCH (17:09)
[2024-10-25 05:32] LABS: Hematocrit 21.9 % (36.0-47.0); Hemoglobin 7.1 g/dL (12.0-16.0); Mean Corpuscular Hemoglobin 30.0 pg (27.0-31.0); Mean Corpuscular Volume 92.4 fL (78.0-98.0); Platelet Count 33 10x3/uL (130-400); Red Blood Cell (RBC) Count 2.37 mill/uL (4.20-5.40); White Blood Cell (WBC) Count 1.43 10x3/uL (4.8-10.8)
[2024-10-25 05:57] LABS: Iron 45 ug/dL (50-170); Iron Binding Capacity, Total 173 mcg/dL (265-497)
[2024-10-25 05:58] LABS: Anion Gap 12 mmol/L (10-20); BUN (Urea Nitrogen) 19 mg/dL (7.0-18.7); Calc. Creatinine Clearance 50 mL/min (70-130); Calcium 8.1 mg/dL (7.8-10.44); Carbon Dioxide 25 mmol/L (22-29); Chloride 104 mmol/L (98-107); Glucose 222 mg/dL (70-105); Potassium 4.5 mmol/L (3.5-5.1); Sodium 136 mmol/L (136-145)
[2024-10-25 06:56] LABS: Anisocytosis SLIGHT = 6-15 cells HPF (0-5); Macrocytosis SLIGHT = 6-15 cells HPF (0-5); Platelet Adequacy Comment Significant Decrease; Polychromasia SLIGHT = 2-3 cells HPF (0-2); Smudge Cells 7.9 %
[2024-10-25] MEDS: Ferrous Sulfate 325 MG TAB PO SCH (08:08)
[2024-10-25] MEDS ORDERED: Lidocaine 1% PF 5 ML VIAL ONE (10:05)
[2024-10-25] MEDS ORDERED: PROPOFOL 20 ML ONE ×2 (10:05→11:08)
[2024-10-25] MEDS ORDERED: Ketamine In 0.9 % NaCl 50 MG/5 ML SYRINGE ONE (10:43)
[2024-10-25] MEDS ORDERED: Lidocaine 1% w/Epinephrine 1:100K 20 ML VIAL ONE (10:58)
[2024-10-25] MEDS: hydrALAZINE 20 MG/ML VIAL SLOW IVP PRN (12:40)
[2024-10-26 14:43] LABS: Hematocrit 24.5 % (36.0-47.0); Hemoglobin 7.8 g/dL (12.0-16.0); Mean Corpuscular Hemoglobin 29.4 pg (27.0-31.0); Mean Corpuscular Volume 92.5 fL (78.0-98.0); Platelet Count 43 10x3/uL (130-400); Red Blood Cell (RBC) Count 2.65 mill/uL (4.20-5.40); White Blood Cell (WBC) Count 1.11 10x3/uL (4.8-10.8)
[2024-10-26 15:07] LABS: Anisocytosis SLIGHT = 6-15 cells HPF (0-5); Giant Platelets 2.9 % (0-5); Ovalocytes SLIGHT = 2-5 cells HPF (0-1); Platelet Adequacy Comment Significant Decrease; Polychromasia SLIGHT = 2-3 cells HPF (0-2); Smudge Cells 9.7 %; Spherocytes SLIGHT = 1-5 cells HPF (None Seen)
[2024-10-26 15:08] LABS: Albumin 2.6 g/dL (3.1-4.5); Anion Gap 14 mmol/L (10-20); BUN (Urea Nitrogen) 31 mg/dL (7.0-18.7); BUN/Creatinine Ratio 9.14; Calc. Creatinine Clearance 33 mL/min (70-130); Calcium 8.4 mg/dL (7.8-10.44); Carbon Dioxide 22 mmol/L (22-29); Chloride 104 mmol/L (98-107); Glucose 364 mg/dL (70-105); Potassium 5.0 mmol/L (3.5-5.1); Sodium 135 mmol/L (136-145)
[2024-10-26] MEDS ORDERED: Ciprofloxacin 0.2% Otic (0.25ML CONTAINER) R EAR SCH (21:00)
[2024-10-26] MEDS ORDERED: Transdermal Patch Removal TOP SCH (21:00)
[2024-10-27] MEDS: Transdermal Patch Removal TOP SCH (02:35)
[2024-10-27 08:38] LABS: Albumin 2.6 g/dL (3.1-4.5); Anion Gap 16 mmol/L (10-20); BUN (Urea Nitrogen) 34 mg/dL (7.0-18.7); BUN/Creatinine Ratio 9.16; Calc. Creatinine Clearance 30 mL/min (70-130); Calcium 8.3 mg/dL (7.8-10.44); Carbon Dioxide 17 mmol/L (22-29); Chloride 109 mmol/L (98-107); Glucose 366 mg/dL (70-105); Potassium 5.2 mmol/L (3.5-5.1); Sodium 137 mmol/L (136-145)
[2024-10-27 08:52] LABS: Hematocrit 23.8 % (36.0-47.0); Hemoglobin 7.9 g/dL (12.0-16.0); Mean Corpuscular Hemoglobin 29.8 pg (27.0-31.0); Mean Corpuscular Volume 89.8 fL (78.0-98.0); Platelet Count 42 10x3/uL (130-400); Red Blood Cell (RBC) Count 2.65 mill/uL (4.20-5.40); White Blood Cell (WBC) Count 1.44 10x3/uL (4.8-10.8)
[2024-10-27 09:52] LABS: Anisocytosis SLIGHT = 6-15 cells HPF (0-5); Platelet Adequacy Comment Platelets Decreased; Polychromasia SLIGHT = 2-3 cells HPF (0-2); Smudge Cells 5.9 %
[2024-10-27] MEDS: Sodium Bicarbonate Tab 325 MG TAB PO SCH (10:55)
[2024-10-27] MEDS: EPOETIN ALFA-EPBX (ESRD) 10,000 UNITS/ML VIAL SC SCH (11:05)
[2024-10-27] MEDS: Sodium Polystyrene Sulfonate 15 GM (60 mL) BOT PO SCH (12:27)
[2024-10-27] MEDS ORDERED: INSULN SQ SCH (17:00)
[2024-10-27] MEDS ORDERED: INSULIN LISPRO 200 UNIT/ML SQ SCH (17:00)
[2024-10-27] MEDS ORDERED: [UNRECOGNIZED DRUG - OTHER] SQ SCH (17:00)
[2024-10-28 09:31] LABS: Hematocrit 24.4 % (36.0-47.0); Hemoglobin 7.8 g/dL (12.0-16.0); Mean Corpuscular Hemoglobin 29.4 pg (27.0-31.0); Mean Corpuscular Volume 92.1 fL (78.0-98.0); Platelet Count 58 10x3/uL (130-400); Red Blood Cell (RBC) Count 2.65 mill/uL (4.20-5.40); White Blood Cell (WBC) Count 1.68 10x3/uL (4.8-10.8)
[2024-10-28 09:42] LABS: Albumin 2.7 g/dL (3.1-4.5); Anion Gap 15 mmol/L (10-20); BUN (Urea Nitrogen) 30 mg/dL (7.0-18.7); BUN/Creatinine Ratio 7.52; Calc. Creatinine Clearance 28 mL/min (70-130); Calcium 8.4 mg/dL (7.8-10.44); Carbon Dioxide 19 mmol/L (22-29); Chloride 110 mmol/L (98-107); Glucose 152 mg/dL (70-105); Potassium 4.9 mmol/L (3.5-5.1); Sodium 139 mmol/L (136-145)
[2024-10-28 09:53] LABS: Anisocytosis SLIGHT = 6-15 cells HPF (0-5); Plasma Cells 1 % (0-0); Platelet Adequacy Comment Platelets Decreased; Polychromasia SLIGHT = 2-3 cells HPF (0-2); Smudge Cells 7.7 %; Spherocytes SLIGHT = 1-5 cells HPF (None Seen)
[2024-10-28] MEDS: ALPRAZolam 0.25 MG TAB PO SCH (20:37)
[2024-10-29 08:27] LABS: Albumin 2.5 g/dL (3.1-4.5); Anion Gap 13 mmol/L (10-20); BUN (Urea Nitrogen) 38 mg/dL (7.0-18.7); BUN/Creatinine Ratio 8.98; Calc. Creatinine Clearance 26 mL/min (70-130); Calcium 8.7 mg/dL (7.8-10.44); Carbon Dioxide 19 mmol/L (22-29); Chloride 108 mmol/L (98-107); Glucose 179 mg/dL (70-105); Potassium 5.2 mmol/L (3.5-5.1); Sodium 135 mmol/L (136-145)
[2024-10-29] MEDS: Sodium Polystyrene Sulfonate 15 GM (60 mL) BOT PO SCH (09:42)
[2024-10-29] MEDS ORDERED: Heparin 10,000 UNITS/ 10 ML VIAL ONE ×2 (11:05→16:05)
[2024-10-29] MEDS ORDERED: PROPOFOL 20 ML ONE (16:06)
[2024-10-29] MEDS ORDERED: Lidocaine 1% PF 5 ML VIAL ONE (16:06)
[2024-10-29] MEDS ORDERED: Ondansetron PF 4 MG/2 ML Vial ONE (16:51)
[2024-10-30 06:23] LABS: Hematocrit 23.9 % (36.0-47.0); Hemoglobin 8.2 g/dL (12.0-16.0); Mean Corpuscular Hemoglobin 30.3 pg (27.0-31.0); Mean Corpuscular Volume 88.2 fL (78.0-98.0); Platelet Count 56 10x3/uL (130-400); Red Blood Cell (RBC) Count 2.71 mill/uL (4.20-5.40); White Blood Cell (WBC) Count 1.64 10x3/uL (4.8-10.8)
[2024-10-30 06:26] LABS: Albumin 2.6 g/dL (3.1-4.5); Anion Gap 8 mmol/L (10-20); BUN (Urea Nitrogen) 32 mg/dL (7.0-18.7); BUN/Creatinine Ratio 9.67; Calc. Creatinine Clearance 33 mL/min (70-130); Calcium 7.8 mg/dL (7.8-10.44); Carbon Dioxide 19 mmol/L (22-29); Chloride 108 mmol/L (98-107); Glucose 545 mg/dL (70-105); Potassium 4.9 mmol/L (3.5-5.1); Sodium 130 mmol/L (136-145)
[2024-10-30 06:48] LABS: Anisocytosis SLIGHT = 6-15 cells HPF (0-5); Nucleated RBC (Manual Ct) 1 % (0); Platelet Adequacy Comment Platelets Decreased; Polychromasia SLIGHT = 2-3 cells HPF (0-2)
[2024-10-30 11:58] VITALS: BP 118/72; TEMP 98.3
[2024-10-31] MEDS ORDERED: CEFAZOLIN 2 GM, CEFAZOLIN 1 GM in Sodium Chloride 0.9% 100 ML IVPB SCH (16:00)
== END 2024-10-30 18:15 | disposition home or self-care (01) | DRG 314 ==
LOC: 2NO 10-18 01:55 → OBSVTOIN 10-18 11:39 → T4-B 10-19 13:33
PROVIDERS: ADMIT Internal Medicine; ATTEND Internal Medicine
PROC: 3E03329 Introduction of Other Anti-infective into Peripheral Vein, Percutaneous Approach (ICD-10-PCS; 2024-10-18)
PROC: 5A1D70Z Performance of Urinary Filtration, Intermittent, Less than 6 Hours Per Day (ICD-10-PCS; 2024-10-20)
PROC: 0JPT3XZ Removal of Tunneled Vascular Access Device from Trunk Subcutaneous Tissue and Fascia, Percutaneous Approach (ICD-10-PCS; 2024-10-25)
PROC: 6A550Z2 Pheresis of Platelets, Single (ICD-10-PCS; 2024-10-25)
PROC: 05PY33Z Removal of Infusion Device from Upper Vein, Percutaneous Approach (ICD-10-PCS; 2024-10-25)
PROC: 0JH63XZ Insertion of Tunneled Vascular Access Device into Chest Subcutaneous Tissue and Fascia, Percutaneous Approach (ICD-10-PCS; principal; 2024-10-29)
PROC: 02HV33Z Insertion of Infusion Device into Superior Vena Cava, Percutaneous Approach (ICD-10-PCS; 2024-10-29)
PROC: B5181ZA Fluoroscopy of Superior Vena Cava using Low Osmolar Contrast, Guidance (ICD-10-PCS; 2024-10-29)
DX: T82.7XXA Infection and inflammatory reaction due to other cardiac and vascular devices, implants and grafts, initial encounter (principal); A41.01 Sepsis due to Methicillin susceptible Staphylococcus aureus; N17.0 Acute kidney failure with tubular necrosis; N18.6 End stage renal disease; R65.20 Severe sepsis without septic shock; D61.818 Other pancytopenia; D80.1 Nonfamilial hypogammaglobulinemia; J44.1 Chronic obstructive pulmonary disease with (acute) exacerbation; J45.901 Unspecified asthma with (acute) exacerbation; D83.9 Common variable immunodeficiency, unspecified; E87.21 Acute metabolic acidosis; N13.30 Unspecified hydronephrosis; Q62.11 Congenital occlusion of ureteropelvic junction; E87.22 Chronic metabolic acidosis; Z99.2 Dependence on renal dialysis; K21.9 Gastro-esophageal reflux disease without esophagitis; Z88.0 Allergy status to penicillin; Z88.8 Allergy status to other drugs, medicaments and biological substances; Z88.1 Allergy status to other antibiotic agents; I16.0 Hypertensive urgency; D63.1 Anemia in chronic kidney disease; Z90.49 Acquired absence of other specified parts of digestive tract; E10.65 Type 1 diabetes mellitus with hyperglycemia; E10.22 Type 1 diabetes mellitus with diabetic chronic kidney disease; N93.8 Other specified abnormal uterine and vaginal bleeding; J11.1 Influenza due to unidentified influenza virus with other respiratory manifestations; Z79.4 Long term (current) use of insulin; Z79.899 Other long term (current) drug therapy; H60.92 Unspecified otitis externa, left ear; E87.5 Hyperkalemia; Z79.51 Long term (current) use of inhaled steroids; D73.1 Hypersplenism; I10 Essential (primary) hypertension; G31.84 Mild cognitive impairment of uncertain or unknown etiology; E66.9 Obesity, unspecified; Z68.33 Body mass index [BMI] 33.0-33.9, adult; Y83.8 Other surgical procedures as the cause of abnormal reaction of the patient, or of later complication, without mention of misadventure at the time of the procedure
CPT/HCPCS: 36415; 36416; 36430; 71045; 71275; 72146; 80048; 80053; 80069; 80202; 82728; 83036; 83540; 83550; 83605; 83735; 85025; 86850; 86900; 86901; 86922; 87040; 87070; 87077; 87186; 87205; 90935; 93005; 93010; 94640; 96374; 96375; 96376; A6258; C1750; G0257; G0378; J0169; J0360; J0665; J0690; J0696; J1100; J1642; J1644; J1815; J2270; J2272; J2405; J2704; J3010; J3371; J3373; J3375; J3475; J3490; J7030; J7050; J7120; J7626; P9035; Q5105; Q9967

== ENCOUNTER 2024-11-03 14:14 | Emergency (ER) | payer MEDICAID ==
[2024-11-03 16:52] LABS: Hematocrit 27.6 % (36.0-47.0); Hemoglobin 8.8 g/dL (12.0-16.0); Mean Corpuscular Hemoglobin 29.7 pg (27.0-31.0); Mean Corpuscular Volume 93.2 fL (78.0-98.0); Platelet Count 72 10x3/uL (130-400); Red Blood Cell (RBC) Count 2.96 mill/uL (4.20-5.40); White Blood Cell (WBC) Count 3.24 10x3/uL (4.8-10.8)
[2024-11-03] MEDS ORDERED: Activase 2 MG VIAL CATH SCH (17:00)
[2024-11-03 17:05] LABS: ALT (SGPT) Less than 7 U/L (Less than 34); AST (SGOT) 16 U/L (11-34); Albumin 3.0 g/dL (3.1-4.5); Alkaline Phosphatase 75 U/L (40-110); Anion Gap 14 mmol/L (10-20); BUN (Urea Nitrogen) 34 mg/dL (7.0-18.7); Bilirubin, Total 0.2 mg/dL (0.3-1.2); Calc. Creatinine Clearance 0 mL/min (70-130); Calcium 8.7 mg/dL (7.8-10.44); Carbon Dioxide 20 mmol/L (22-29); Chloride 111 mmol/L (98-107); Globulin 2.7 g/dL (2.4-3.5); Glucose 60 mg/dL (70-105); Magnesium 1.7 mg/dL (1.6-2.6); Potassium 4.0 mmol/L (3.5-5.1); Sodium 141 mmol/L (136-145)
[2024-11-03 17:16] LABS: Platelet Adequacy Comment Platelets Decreased; Polychromasia SLIGHT = 2-3 cells HPF (0-2)
== END 2024-11-03 19:00 | disposition home or self-care (01) ==
LOC: ERS 14:14
DX: T82.49XA Other complication of vascular dialysis catheter, initial encounter (principal); I12.0 Hypertensive chronic kidney disease with stage 5 chronic kidney disease or end stage renal disease; N18.6 End stage renal disease; E11.22 Type 2 diabetes mellitus with diabetic chronic kidney disease; Z99.2 Dependence on renal dialysis
CPT/HCPCS: 36416; 71045; 80053; 83735; 84484; 85025; 93005; 96374; 96376; J2997; J3010

== ENCOUNTER 2024-11-07 17:01 | Day surgery (SDC) | payer MEDICAID ==
[2024-11-07] MEDS ORDERED: diphenhydrAMINE 25 MG CAP PO SCH ×2 (19:15→20:00)
[2024-11-07] MEDS: Acetaminophen 500 MG TAB PO SCH (22:54)
[2024-11-08 05:34] LABS: #Basophils Less than 0.03 10x3/uL (0.0-0.2); #Eosinophils 0.03 10x3/uL (0.0-0.7); #Monocytes 0.31 10x3/uL (0.11-0.59); #Neutrophils 1.03 10x3/uL (1.40-6.50); %Basophils 0.5 % (0.0-1.0); %Eosinophils 1.4 % (0.0-10.0); %Lymphocytes 33.3 % (21.0-51.0); %Monocytes 14.6 % (0.0-10.0); %Neutrophils 48.3 % (42.0-75.0); Hematocrit 23.4 % (36.0-47.0); Hemoglobin 7.6 g/dL (12.0-16.0); Mean Corpuscular Hemoglobin 29.7 pg (27.0-31.0); Mean Corpuscular Volume 91.4 fL (78.0-98.0); Platelet Count 61 10x3/uL (130-400); Red Blood Cell (RBC) Count 2.56 mill/uL (4.20-5.40); White Blood Cell (WBC) Count 2.13 10x3/uL (4.8-10.8)
[2024-11-08 11:33] VITALS: BP 148/86; TEMP 97.8
== END 2024-11-08 10:00 | disposition home or self-care (01) ==
LOC: ONC/OP 17:01 → MSONC 17:01 → SDC 17:01 → UNDOADMIN 17:01 → EDSTATUS 19:59 → ONC/OP 11-08 10:00
PROVIDERS: ATTEND Internal Medicine
DX: D64.9 Anemia, unspecified (principal); D69.6 Thrombocytopenia, unspecified
CPT/HCPCS: 36416; 36430; 85025; 86850; 86870; 86900; 86901; 86922; J1642; P9040

== ENCOUNTER 2024-11-07 17:06 | Emergency (ER) | payer MEDICAID | END 2024-11-07 17:40 | disposition home or self-care (01) | LOC: ERS 17:06 | DX: Z00.00 Encounter for general adult medical examination without abnormal findings (principal); I12.0 Hypertensive chronic kidney disease with stage 5 chronic kidney disease or end stage renal disease; N18.6 End stage renal disease; Z99.2 Dependence on renal dialysis; D64.9 Anemia, unspecified; D69.6 Thrombocytopenia, unspecified | CPT/HCPCS: 36416; 36430; 85025; 86850; 86870; 86900; 86901; 86922; 93005; 99283; J1642; P9040 ==

== ENCOUNTER 2024-11-11 09:20 | Day surgery (SDC) | payer MEDICAID ==
[2024-11-11] MEDS: Acetaminophen 500 MG TAB PO SCH (10:22)
[2024-11-11] MEDS ORDERED: Acetaminophen 500 MG TAB ONE ×2 (10:22→12:22)
[2024-11-11] MEDS ORDERED: Dexamethasone 10 MG/ML VIAL ONE (10:28)
[2024-11-11] MEDS: Dexamethasone 10 MG/ML VIAL SLOW IVP SCH (10:29)
[2024-11-11] MEDS: PRIVIGEN IVPB SCH (10:45)
[2024-11-11] MEDS: ADMIXTURE FEE IVPB SCH (10:45)
[2024-11-11 14:50] VITALS: BP 180/86; TEMP 98.1
== END 2024-11-11 14:51 | disposition home or self-care (01) ==
LOC: ONC/OP 09:20
PROVIDERS: ATTEND Internal Medicine
DX: D70.8 Other neutropenia (principal); D59.10 Autoimmune hemolytic anemia, unspecified; D58.9 Hereditary hemolytic anemia, unspecified; D80.1 Nonfamilial hypogammaglobulinemia; D69.3 Immune thrombocytopenic purpura; D83.9 Common variable immunodeficiency, unspecified; N18.4 Chronic kidney disease, stage 4 (severe); D63.1 Anemia in chronic kidney disease; D63.8 Anemia in other chronic diseases classified elsewhere; L30.9 Dermatitis, unspecified; Z87.01 Personal history of pneumonia (recurrent)
CPT/HCPCS: 36416; 85025; 86850; 86900; 86901; 96365; 96366; 96375; J1100; J1459; J1642

== ENCOUNTER → 2024-11-13 | Day surgery (SDC) | payer MEDICAID ==
[2024-11-11 11:48] LABS: Hematocrit 22.5 % (36.0-47.0); Hemoglobin 7.2 g/dL (12.0-16.0); Mean Corpuscular Hemoglobin 30.1 pg (27.0-31.0); Mean Corpuscular Volume 94.1 fL (78.0-98.0); Platelet Count 40 10x3/uL (130-400); Red Blood Cell (RBC) Count 2.39 mill/uL (4.20-5.40); White Blood Cell (WBC) Count 1.13 10x3/uL (4.8-10.8)
[2024-11-11 12:14] LABS: Anisocytosis SLIGHT = 6-15 cells HPF (0-5); Nucleated RBC (Manual Ct) 3 % (0); Platelet Adequacy Comment Platelets Decreased; Poikilocytosis SLIGHT = 6-15 cells HPF (0-5); Polychromasia SLIGHT = 2-3 cells HPF (0-2)
[~2024-11-13] MED LIST changes: -PNEUMOC 20-VAL CONJ-DIP CRM/PF 0.5 ML SYRINGE IM ONE
[2024-11-13 09:39] VITALS: TEMP 97.9
[2024-11-13 12:06] VITALS: BP 169/99
== END ==
LOC: ONC/OP 08:32
PROVIDERS: ATTEND Internal Medicine
DX: D64.9 Anemia, unspecified (principal); Z88.8 Allergy status to other drugs, medicaments and biological substances; Z88.0 Allergy status to penicillin; Z88.1 Allergy status to other antibiotic agents
CPT/HCPCS: 36430; 85025; 86850; 86900; 86901; 86922; J1642; P9040

== ENCOUNTER 2024-12-23 12:13 | Inpatient (IN) | payer MEDICAID ==
[2024-12-23] MEDS ORDERED: Ondansetron PF 4 MG/2 ML Vial ONE (13:37)
[2024-12-23 14:08] LABS: Hematocrit 20.5 % (36.0-47.0); Hemoglobin 6.4 g/dL (12.0-16.0); Mean Corpuscular Hemoglobin 30.3 pg (27.0-31.0); Mean Corpuscular Volume 97.2 fL (78.0-98.0); Platelet Count 66 10x3/uL (130-400); Red Blood Cell (RBC) Count 2.11 mill/uL (4.20-5.40); White Blood Cell (WBC) Count 2.11 10x3/uL (4.8-10.8)
[2024-12-23 14:17] LABS: ALT (SGPT) Less than 7 U/L (Less than 34); AST (SGOT) 10 U/L (11-34); Albumin 2.3 g/dL (3.1-4.5); Alkaline Phosphatase 54 U/L (40-110); Anion Gap 10 mmol/L (10-20); BUN (Urea Nitrogen) 15 mg/dL (7.0-18.7); Bilirubin, Total 0.2 mg/dL (0.3-1.2); Calc. Creatinine Clearance 0 mL/min (70-130); Calcium 8.0 mg/dL (7.8-10.44); Carbon Dioxide 25 mmol/L (22-29); Chloride 106 mmol/L (98-107); Globulin 2.6 g/dL (2.4-3.5); Glucose 236 mg/dL (70-105); Potassium 3.4 mmol/L (3.5-5.1); Sodium 138 mmol/L (136-145)
[2024-12-23 14:44] LABS: Anisocytosis MODERATE=16-30 cells HPF (0-5); Macrocytosis SLIGHT = 6-15 cells HPF (0-5); Nucleated RBC (Manual Ct) 1 % (0); Ovalocytes SLIGHT = 2-5 cells HPF (0-1); Platelet Adequacy Comment Significant Decrease; Polychromasia SLIGHT = 2-3 cells HPF (0-2); Smudge Cells 8.1 %; Stomatocytes SLIGHT = 2-5 cells HPF (0-1)
[2024-12-23] MEDS ORDERED: Cefepime 2 GM VIAL ONE (14:59)
[2024-12-23] MEDS: Clindamycin/D5W 900 MG in Premix 1 BAG IVPB SCH (15:55)
[2024-12-23] MEDS: Vancomycin 1.5 GM / NS 500ML VIAL-2-BAG IVPB SCH (16:24)
[2024-12-23] MEDS ORDERED: Senokot S 8.6-50 MG TAB PO PRN (17:16)
[2024-12-23] MEDS ORDERED: Glucagon 1 MG/ML KIT IM PRN (17:31)
[2024-12-23] MEDS ORDERED: Dextrose 50% Abboject 50 ML SYRINGE SLOW IVP PRN (17:31)
[2024-12-23] MEDS ORDERED: Acetaminophen/Codeine 30-300mg Tablet ONE (17:45)
[2024-12-23] MEDS: Acetaminophen/Codeine 30-300mg Tablet PO PRN (17:47)
[2024-12-23] MEDS: ALPRAZolam 0.25 MG TAB PO SCH (22:35)
[2024-12-23] MEDS: Mometasone 100 MCG HFA INHALER (RT USE) INH SCH (22:44)
[2024-12-23] MEDS: Ketorolac Tromethamine 30 MG (1 mL) VIAL IVP PRN (23:09)
[2024-12-23 23:51] VITALS: BMI 34.4
[2024-12-24 05:38] LABS: #Basophils Less than 0.03 10x3/uL (0.0-0.2); #Eosinophils 0.03 10x3/uL (0.0-0.7); #Monocytes 0.16 10x3/uL (0.11-0.59); #Neutrophils 1.02 10x3/uL (1.40-6.50); %Basophils 0.6 % (0.0-1.0); %Eosinophils 1.7 % (0.0-10.0); %Lymphocytes 26.4 % (21.0-51.0); %Monocytes 9.0 % (0.0-10.0); %Neutrophils 57.2 % (42.0-75.0); Hematocrit 26.1 % (36.0-47.0); Hemoglobin 8.1 g/dL (12.0-16.0); Mean Corpuscular Hemoglobin 30.1 pg (27.0-31.0); Mean Corpuscular Volume 97.0 fL (78.0-98.0); Platelet Count 52 10x3/uL (130-400); Red Blood Cell (RBC) Count 2.69 mill/uL (4.20-5.40); White Blood Cell (WBC) Count 1.78 10x3/uL (4.8-10.8)
[2024-12-24 05:58] LABS: Anion Gap 10 mmol/L (10-20); BUN (Urea Nitrogen) 18 mg/dL (7.0-18.7); Calc. Creatinine Clearance 33 mL/min (70-130); Calcium 7.7 mg/dL (7.8-10.44); Carbon Dioxide 24 mmol/L (22-29); Chloride 107 mmol/L (98-107); Glucose 142 mg/dL (70-105); Potassium 3.5 mmol/L (3.5-5.1); Sodium 137 mmol/L (136-145)
[2024-12-24] MEDS: Albuterol 200 PUFF (6.7GM INHALER) INH SCH (07:48)
[2024-12-24] MEDS: Heparin 10,000 UNITS/ 10 ML VIAL CATH PRN (12:48)
[2024-12-24 15:53] VITALS: BMI 34.4
[2024-12-24 20:35] LABS: INR-International Normal Ratio 1.0; Prothrombin Time 13.0 sec (12.0-14.7)
[2024-12-24] MEDS: Mupirocin 1 GM TUBE NASAL DECOLONIZATION NASAL SCH (21:29)
[2024-12-25 04:51] LABS: Hematocrit 21.4 % (36.0-47.0); Hemoglobin 6.7 g/dL (12.0-16.0); Mean Corpuscular Hemoglobin 30.2 pg (27.0-31.0); Mean Corpuscular Volume 96.4 fL (78.0-98.0); Platelet Count 59 10x3/uL (130-400); Red Blood Cell (RBC) Count 2.22 mill/uL (4.20-5.40); White Blood Cell (WBC) Count 2.16 10x3/uL (4.8-10.8)
[2024-12-25 04:54] LABS: Anion Gap 11 mmol/L (10-20); BUN (Urea Nitrogen) 16 mg/dL (7.0-18.7); Calc. Creatinine Clearance 46 mL/min (70-130); Calcium 7.9 mg/dL (7.8-10.44); Carbon Dioxide 28 mmol/L (22-29); Chloride 101 mmol/L (98-107); Glucose 198 mg/dL (70-105); Potassium 4.0 mmol/L (3.5-5.1); Sodium 136 mmol/L (136-145)
[2024-12-25 05:31] LABS: Anisocytosis SLIGHT = 6-15 cells HPF (0-5); Platelet Adequacy Comment Platelets Decreased; Polychromasia SLIGHT = 2-3 cells HPF (0-2); Smudge Cells 10.0 %
[2024-12-25] MEDS ORDERED: Vancomycin Diaylsis Sliding Scale (Wt 71-99) FS SCH (13:45)
[2024-12-25 14:36] LABS: Vancomycin, Trough 15.8 ug/mL
[2024-12-25] MEDS: Vancomycin HCl 750 MG in Sodium Chloride 0.9% 250 ML 250 ML IVPB SCH (16:44)
[2024-12-26 05:27] LABS: #Basophils Less than 0.03 10x3/uL (0.0-0.2); #Eosinophils 0.03 10x3/uL (0.0-0.7); #Monocytes 0.20 10x3/uL (0.11-0.59); #Neutrophils 1.39 10x3/uL (1.40-6.50); %Basophils 0.4 % (0.0-1.0); %Eosinophils 1.3 % (0.0-10.0); %Lymphocytes 27.8 % (21.0-51.0); %Monocytes 8.4 % (0.0-10.0); %Neutrophils 58.7 % (42.0-75.0); Hematocrit 25.3 % (36.0-47.0); Hemoglobin 7.8 g/dL (12.0-16.0); Mean Corpuscular Hemoglobin 29.9 pg (27.0-31.0); Mean Corpuscular Volume 96.9 fL (78.0-98.0); Platelet Count 57 10x3/uL (130-400); Red Blood Cell (RBC) Count 2.61 mill/uL (4.20-5.40); White Blood Cell (WBC) Count 2.37 10x3/uL (4.8-10.8)
[2024-12-26 05:48] LABS: Anion Gap 12 mmol/L (10-20); BUN (Urea Nitrogen) 28 mg/dL (7.0-18.7); Calc. Creatinine Clearance 34 mL/min (70-130); Calcium 8.0 mg/dL (7.8-10.44); Carbon Dioxide 24 mmol/L (22-29); Chloride 101 mmol/L (98-107); Glucose 225 mg/dL (70-105); Potassium 4.1 mmol/L (3.5-5.1); Sodium 133 mmol/L (136-145)
[2024-12-26] MEDS: FLU (Fluarix Triv) 25-26 (6MOS UP)/PF 45 MCG/0.5 ML Syringe IM ONE (08:58)
[2024-12-26 11:19] LABS: Vancomycin, Trough 21.5 ug/mL
[2024-12-26] MEDS: EPOETIN ALFA-EPBX (ESRD) 10,000 UNITS/ML VIAL SC SCH (15:37)
[2024-12-27 04:14] LABS: #Basophils Less than 0.03 10x3/uL (0.0-0.2); #Eosinophils Less than 0.03 10x3/uL (0.0-0.7); #Monocytes 0.14 10x3/uL (0.11-0.59); #Neutrophils 1.45 10x3/uL (1.40-6.50); %Basophils 0.0 % (0.0-1.0); %Eosinophils 0.9 % (0.0-10.0); %Lymphocytes 24.7 % (21.0-51.0); %Monocytes 6.3 % (0.0-10.0); %Neutrophils 65.0 % (42.0-75.0); Hematocrit 23.6 % (36.0-47.0); Hemoglobin 7.4 g/dL (12.0-16.0); Mean Corpuscular Hemoglobin 30.1 pg (27.0-31.0); Mean Corpuscular Volume 95.9 fL (78.0-98.0); Platelet Count 57 10x3/uL (130-400); Red Blood Cell (RBC) Count 2.46 mill/uL (4.20-5.40); White Blood Cell (WBC) Count 2.23 10x3/uL (4.8-10.8)
[2024-12-27 04:36] LABS: Anion Gap 12 mmol/L (10-20); BUN (Urea Nitrogen) 19 mg/dL (7.0-18.7); Calc. Creatinine Clearance 43 mL/min (70-130); Calcium 8.2 mg/dL (7.8-10.44); Carbon Dioxide 28 mmol/L (22-29); Chloride 101 mmol/L (98-107); Glucose 226 mg/dL (70-105); Potassium 4.2 mmol/L (3.5-5.1); Sodium 137 mmol/L (136-145)
[2024-12-27] MEDS: Acetaminophen 325 MG TAB PO PRN (05:34)
[2024-12-28 06:19] LABS: #Basophils Less than 0.03 10x3/uL (0.0-0.2); #Eosinophils 0.03 10x3/uL (0.0-0.7); #Monocytes 0.14 10x3/uL (0.11-0.59); #Neutrophils 1.35 10x3/uL (1.40-6.50); %Basophils 0.5 % (0.0-1.0); %Eosinophils 1.4 % (0.0-10.0); %Lymphocytes 27.0 % (21.0-51.0); %Monocytes 6.5 % (0.0-10.0); %Neutrophils 62.7 % (42.0-75.0); Hematocrit 23.4 % (36.0-47.0); Hemoglobin 7.4 g/dL (12.0-16.0); Mean Corpuscular Hemoglobin 30.2 pg (27.0-31.0); Mean Corpuscular Volume 95.5 fL (78.0-98.0); Platelet Count 54 10x3/uL (130-400); Red Blood Cell (RBC) Count 2.45 mill/uL (4.20-5.40); White Blood Cell (WBC) Count 2.15 10x3/uL (4.8-10.8)
[2024-12-28 06:27] LABS: Anion Gap 16 mmol/L (10-20); BUN (Urea Nitrogen) 29 mg/dL (7.0-18.7); Calc. Creatinine Clearance 33 mL/min (70-130); Calcium 8.2 mg/dL (7.8-10.44); Carbon Dioxide 26 mmol/L (22-29); Chloride 101 mmol/L (98-107); Glucose 194 mg/dL (70-105); Potassium 4.6 mmol/L (3.5-5.1); Sodium 138 mmol/L (136-145)
[2024-12-28] MEDS: Melatonin 3 MG TAB PO PRN (21:58)
[2024-12-29 08:34] LABS: Vancomycin, Trough 13.3 ug/mL
[2024-12-29] MEDS: Heparin 10,000 UNITS/ 10 ML VIAL CATH PRN (14:11)
[2024-12-29] MEDS: Vancomycin 1 GM in Premix 1 BAG IVPB SCH (16:16)
[2024-12-30 10:43] LABS: Albumin 2.1 g/dL (3.1-4.5); Anion Gap 10 mmol/L (10-20); BUN (Urea Nitrogen) 19 mg/dL (7.0-18.7); BUN/Creatinine Ratio 6.42; Calc. Creatinine Clearance 36 mL/min (70-130); Calcium 8.0 mg/dL (7.8-10.44); Carbon Dioxide 30 mmol/L (22-29); Chloride 102 mmol/L (98-107); Glucose 259 mg/dL (70-105); Potassium 4.3 mmol/L (3.5-5.1); Sodium 138 mmol/L (136-145)
[2024-12-30 10:49] LABS: Hematocrit 20.7 % (36.0-47.0); Hemoglobin 6.5 g/dL (12.0-16.0); Mean Corpuscular Hemoglobin 30.5 pg (27.0-31.0); Mean Corpuscular Volume 97.2 fL (78.0-98.0); Platelet Count 45 10x3/uL (130-400); Red Blood Cell (RBC) Count 2.13 mill/uL (4.20-5.40); White Blood Cell (WBC) Count 1.56 10x3/uL (4.8-10.8)
[2024-12-30 11:20] LABS: Anisocytosis SLIGHT = 6-15 cells HPF (0-5); Hypersegmented Neutrophil SLIGHT (None Seen); Macrocytosis SLIGHT = 6-15 cells HPF (0-5); Nucleated RBC (Manual Ct) 1 % (0); Platelet Adequacy Comment Platelets Decreased; Polychromasia SLIGHT = 2-3 cells HPF (0-2); Smudge Cells 7.8 %; Toxic Granulation MARKED
[2024-12-30 11:21] LABS: CAUTI Indications for Culture Dysuria,urgency,freq; Glucose, Urine (Dipstick) 150 mg/dL (Negative); Leukocyte 500 Leu/uL (Negative); Protein, Urine (Dipstick) 300 mg/dL (Neg-Trace); RBC/HPF 21-50 HPF (0-3); Specific Gravity, Urine 1.008 (1.002-1.036); WBC/HPF Greater than 50 HPF (0-3)
[2024-12-30 11:22] LABS: Bacteria/HPF 1+ HPF (None Seen); Urine Culture Reflex Yes Yes
[2024-12-30] MEDS ORDERED: hydrALAZINE 20 MG/ML VIAL SLOW IVP PRN (19:23)
[2024-12-31 06:28] LABS: #Basophils Less than 0.03 10x3/uL (0.0-0.2); #Eosinophils Less than 0.03 10x3/uL (0.0-0.7); #Monocytes 0.21 10x3/uL (0.11-0.59); #Neutrophils 1.44 10x3/uL (1.40-6.50); %Basophils 0.5 % (0.0-1.0); %Eosinophils 0.9 % (0.0-10.0); %Lymphocytes 19.7 % (21.0-51.0); %Monocytes 9.9 % (0.0-10.0); %Neutrophils 67.6 % (42.0-75.0); Hematocrit 23.5 % (36.0-47.0); Hemoglobin 7.5 g/dL (12.0-16.0); Mean Corpuscular Hemoglobin 30.6 pg (27.0-31.0); Mean Corpuscular Volume 95.9 fL (78.0-98.0); Platelet Count 52 10x3/uL (130-400); Red Blood Cell (RBC) Count 2.45 mill/uL (4.20-5.40); White Blood Cell (WBC) Count 2.13 10x3/uL (4.8-10.8)
[2024-12-31 06:40] LABS: Albumin 2.3 g/dL (3.1-4.5); Anion Gap 12 mmol/L (10-20); BUN (Urea Nitrogen) 23 mg/dL (7.0-18.7); BUN/Creatinine Ratio 6.53; Calc. Creatinine Clearance 30 mL/min (70-130); Calcium 8.3 mg/dL (7.8-10.44); Carbon Dioxide 28 mmol/L (22-29); Chloride 102 mmol/L (98-107); Glucose 219 mg/dL (70-105); Potassium 5.0 mmol/L (3.5-5.1); Sodium 137 mmol/L (136-145)
[2024-12-31] MEDS: Ondansetron PF 4 MG/2 ML Vial IVP PRN (16:24)
[2025-01-01 00:04] VITALS: BP 123/91; TEMP 98.4
== END 2025-01-01 00:09 | disposition home or self-care (01) | DRG 637 ==
LOC: ERS 12:13 → ERHOLD 15:34 → MSONC 21:37
PROVIDERS: ADMIT Hospitalist; ATTEND Internal Medicine
PROC: 30233N1 Transfusion of Nonautologous Red Blood Cells into Peripheral Vein, Percutaneous Approach (ICD-10-PCS; principal; 2024-12-23)
PROC: 3E03329 Introduction of Other Anti-infective into Peripheral Vein, Percutaneous Approach (ICD-10-PCS; principal; 2024-12-23)
DX: E10.628 Type 1 diabetes mellitus with other skin complications (principal); N18.6 End stage renal disease; D61.818 Other pancytopenia; L03.312 Cellulitis of back [any part except buttock and flank]; T82.7XXA Infection and inflammatory reaction due to other cardiac and vascular devices, implants and grafts, initial encounter; E87.20 Acidosis, unspecified; D84.89 Other immunodeficiencies; N13.30 Unspecified hydronephrosis; I12.0 Hypertensive chronic kidney disease with stage 5 chronic kidney disease or end stage renal disease; J45.909 Unspecified asthma, uncomplicated; E10.65 Type 1 diabetes mellitus with hyperglycemia; E10.22 Type 1 diabetes mellitus with diabetic chronic kidney disease; D63.1 Anemia in chronic kidney disease; N93.8 Other specified abnormal uterine and vaginal bleeding; D50.0 Iron deficiency anemia secondary to blood loss (chronic); Z88.8 Allergy status to other drugs, medicaments and biological substances; Z79.899 Other long term (current) drug therapy; Z88.0 Allergy status to penicillin; Z99.2 Dependence on renal dialysis
CPT/HCPCS: 36415; 36416; 36430; 80048; 80053; 80069; 80202; 81001; 83605; 84484; 85025; 85610; 86850; 86870; 86900; 86901; 86922; 87070; 87077; 87086; 87186; 87205; 90935; 93005; 93010; 94760; 96361; 96365; 96367; 96375; G0257; J0690; J0692; J1642; J1644; J1815; J1885; J2270; J2272; J2405; J3373; J3490; J7030; J7050; J7626; P9040; Q5105

== ENCOUNTER 2025-01-06 08:51 | Day surgery (SDC) | payer MEDICAID ==
[~2025-01-06 08:51] MED LIST changes: -diphenhydrAMINE 25 MG CAP PO SCH
[2025-01-06 09:29] VITALS: TEMP 98.3
[2025-01-06 09:42] LABS: #Basophils Less than 0.03 10x3/uL (0.0-0.2); #Eosinophils 0.03 10x3/uL (0.0-0.7); #Monocytes 0.23 10x3/uL (0.11-0.59); #Neutrophils 1.77 10x3/uL (1.40-6.50); %Basophils 0.4 % (0.0-1.0); %Eosinophils 1.1 % (0.0-10.0); %Lymphocytes 25.6 % (21.0-51.0); %Monocytes 8.3 % (0.0-10.0); %Neutrophils 63.9 % (42.0-75.0); Hematocrit 27.2 % (36.0-47.0); Hemoglobin 8.7 g/dL (12.0-16.0); Mean Corpuscular Hemoglobin 30.4 pg (27.0-31.0); Mean Corpuscular Volume 95.1 fL (78.0-98.0); Platelet Count 74 10x3/uL (130-400); Red Blood Cell (RBC) Count 2.86 mill/uL (4.20-5.40); White Blood Cell (WBC) Count 2.77 10x3/uL (4.8-10.8)
[2025-01-06] MEDS ORDERED: Dexamethasone 10 MG/ML VIAL ONE (09:51)
[2025-01-06] MEDS: Dexamethasone 10 MG/ML VIAL SLOW IVP SCH (09:55)
[2025-01-06] MEDS: ADMIXTURE FEE IVPB SCH (10:21)
[2025-01-06] MEDS: PRIVIGEN IVPB SCH (10:21)
[2025-01-06 10:27] LABS: Anisocytosis SLIGHT = 6-15 cells HPF (0-5); Macrocytosis SLIGHT = 6-15 cells HPF (0-5); Ovalocytes SLIGHT = 2-5 cells HPF (0-1); Platelet Adequacy Comment Platelets Decreased; Polychromasia SLIGHT = 2-3 cells HPF (0-2)
[2025-01-06] MEDS ORDERED: cloNIDine 0.1 MG TAB ONE (10:33)
[2025-01-06] MEDS: cloNIDine 0.1 MG TAB PO SCH (10:34)
[2025-01-06 12:02] VITALS: BP 146/94
== END 2025-01-06 14:01 | disposition home or self-care (01) ==
LOC: ONC/OP 08:51
PROVIDERS: ATTEND Internal Medicine
DX: D80.1 Nonfamilial hypogammaglobulinemia (principal); D59.10 Autoimmune hemolytic anemia, unspecified; D58.9 Hereditary hemolytic anemia, unspecified; Z87.01 Personal history of pneumonia (recurrent); D70.8 Other neutropenia; D63.1 Anemia in chronic kidney disease; N18.4 Chronic kidney disease, stage 4 (severe); L30.9 Dermatitis, unspecified; D69.3 Immune thrombocytopenic purpura; D83.9 Common variable immunodeficiency, unspecified; Z88.0 Allergy status to penicillin; Z88.1 Allergy status to other antibiotic agents; Z88.8 Allergy status to other drugs, medicaments and biological substances
CPT/HCPCS: 85025; 86850; 86900; 86901; 96365; 96366; 96375; J1100; J1459; J1642

== ENCOUNTER 2025-01-20 11:45 | Inpatient (IN) | payer MEDICAID ==
[2025-01-20 13:06] LABS: Hematocrit 26.1 % (36.0-47.0); Hemoglobin 8.4 g/dL (12.0-16.0); Mean Corpuscular Hemoglobin 30.8 pg (27.0-31.0); Mean Corpuscular Volume 95.6 fL (78.0-98.0); Platelet Count 38 10x3/uL (130-400); Red Blood Cell (RBC) Count 2.73 mill/uL (4.20-5.40); White Blood Cell (WBC) Count 2.44 10x3/uL (4.8-10.8)
[2025-01-20 13:15] LABS: ALT (SGPT) Less than 7 U/L (Less than 34); AST (SGOT) 16 U/L (11-34); Albumin 3.0 g/dL (3.1-4.5); Alkaline Phosphatase 60 U/L (40-110); Anion Gap 10 mmol/L (10-20); BUN (Urea Nitrogen) 22 mg/dL (7.0-18.7); Bilirubin, Total 0.6 mg/dL (0.3-1.2); Calc. Creatinine Clearance 0 mL/min (70-130); Calcium 8.2 mg/dL (7.8-10.44); Carbon Dioxide 23 mmol/L (22-29); Chloride 106 mmol/L (98-107); Globulin 2.2 g/dL (2.4-3.5); Glucose 202 mg/dL (70-105); Potassium 3.4 mmol/L (3.5-5.1); Sodium 136 mmol/L (136-145)
[2025-01-20 13:30] LABS: Anisocytosis SLIGHT = 6-15 cells HPF (0-5); Macrocytosis SLIGHT = 6-15 cells HPF (0-5); Microcytosis SLIGHT = 6-15 cells HPF (0-5); Nucleated RBC (Manual Ct) 2 % (0); Ovalocytes SLIGHT = 2-5 cells HPF (0-1); Platelet Adequacy Comment Significant Decrease; Polychromasia SLIGHT = 2-3 cells HPF (0-2); Smudge Cells 9.0 %
[2025-01-20] MEDS ORDERED: Vancomycin 1 GM/200 ML (FROZEN) BAG ONE (14:43)
[2025-01-20] MEDS ORDERED: Acetaminophen 325 MG (10.15 ML) UDCUP ONE (16:27)
[2025-01-20] MEDS ORDERED: Vancomycin 1 GM in Premix 1 BAG IVPB SCH (17:00)
[2025-01-20] MEDS ORDERED: Ondansetron PF 4 MG/2 ML Vial ONE (18:08)
[2025-01-20 21:55] VITALS: BMI 19.9
[2025-01-20] MEDS: Carvedilol 6.25 MG TAB PO SCH (22:40)
[2025-01-20] MEDS: ALPRAZolam 0.25 MG TAB PO SCH (22:40)
[2025-01-20] MEDS: HumuLIN 70/30 100 Unit/ml 10 ml Vial SC SCH (22:42)
[2025-01-20] MEDS: Melatonin 3 MG TAB PO PRN (22:42)
[2025-01-21 03:45] LABS: #Basophils Less than 0.03 10x3/uL (0.0-0.2); #Eosinophils 0.05 10x3/uL (0.0-0.7); #Monocytes 0.25 10x3/uL (0.11-0.59); #Neutrophils 1.78 10x3/uL (1.40-6.50); %Basophils 0.3 % (0.0-1.0); %Eosinophils 1.7 % (0.0-10.0); %Lymphocytes 28.3 % (21.0-51.0); %Monocytes 8.5 % (0.0-10.0); %Neutrophils 60.9 % (42.0-75.0); Hematocrit 23.6 % (36.0-47.0); Hemoglobin 7.4 g/dL (12.0-16.0); Mean Corpuscular Hemoglobin 30.2 pg (27.0-31.0); Mean Corpuscular Volume 96.3 fL (78.0-98.0); Platelet Count 40 10x3/uL (130-400); Red Blood Cell (RBC) Count 2.45 mill/uL (4.20-5.40); White Blood Cell (WBC) Count 2.93 10x3/uL (4.8-10.8)
[2025-01-21 04:09] LABS: Anion Gap 10 mmol/L (10-20); BUN (Urea Nitrogen) 24 mg/dL (7.0-18.7); Calc. Creatinine Clearance 18 mL/min (70-130); Calcium 7.6 mg/dL (7.8-10.44); Carbon Dioxide 22 mmol/L (22-29); Chloride 107 mmol/L (98-107); Glucose 50 mg/dL (70-105); Potassium 3.1 mmol/L (3.5-5.1); Sodium 136 mmol/L (136-145)
[2025-01-21] MEDS ORDERED: Dextrose 50% Abboject 50 ML SYRINGE SLOW IVP PRN (04:14)
[2025-01-21] MEDS ORDERED: Glucagon 1 MG/ML KIT IM PRN (04:14)
[2025-01-21] MEDS: Potassium Bicarbonate/Cit Ac 20 MEQ TAB PO SCH (06:26)
[2025-01-21] MEDS: Mometasone 100 MCG/PUFF (1 INHALER) INH SCH (06:39)
[2025-01-21] MEDS ORDERED: Albuterol 200 PUFF (6.7GM INHALER) INH SCH (09:00)
[2025-01-21 09:54] LABS: Vancomycin, Trough 14.6 ug/mL
[2025-01-21] MEDS: Ferrous Sulfate 325 MG TAB PO SCH (09:54)
[2025-01-21] MEDS: Famotidine 20 MG TAB PO SCH (09:54)
[2025-01-21] MEDS: HumuLIN 70/30 100 Unit/ml 10 ml Vial SC SCH ×2 (10:36→23:31)
[2025-01-21] MEDS ORDERED: Vancomycin Dose by Levels Sliding Scale (Wt <71) FS SCH (12:15)
[2025-01-21] MEDS ORDERED: Vancomycin HCl 750 MG in Sodium Chloride 0.9% 250 ML 250 ML IVPB SCH (17:00)
[2025-01-21] MEDS: Ondansetron PF 4 MG/2 ML Vial IVP PRN (23:44)
[2025-01-22 04:27] LABS: Hematocrit 21.3 % (36.0-47.0); Hemoglobin 6.8 g/dL (12.0-16.0); Mean Corpuscular Hemoglobin 30.6 pg (27.0-31.0); Mean Corpuscular Volume 95.9 fL (78.0-98.0); Platelet Count 30 10x3/uL (130-400); Red Blood Cell (RBC) Count 2.22 mill/uL (4.20-5.40); White Blood Cell (WBC) Count 2.21 10x3/uL (4.8-10.8)
[2025-01-22 04:34] LABS: Anion Gap 12 mmol/L (10-20); BUN (Urea Nitrogen) 41 mg/dL (7.0-18.7); Calc. Creatinine Clearance 15 mL/min (70-130); Calcium 7.7 mg/dL (7.8-10.44); Carbon Dioxide 21 mmol/L (22-29); Chloride 104 mmol/L (98-107); Glucose 202 mg/dL (70-105); Potassium 4.1 mmol/L (3.5-5.1); Sodium 133 mmol/L (136-145)
[2025-01-22] MEDS: Senokot S 8.6-50 MG TAB PO PRN (04:34)
[2025-01-22 04:52] LABS: Anisocytosis SLIGHT = 6-15 cells HPF (0-5); Platelet Adequacy Comment Platelets Decreased; Polychromasia SLIGHT = 2-3 cells HPF (0-2)
[2025-01-22] MEDS: Ergocalciferol 1.25 MG(50,000 UNITS) CAP PO SCH (09:05)
[2025-01-22 11:57] LABS: 24 Hr Creatinine 510.9 mg/24 hr; Urine Total Volume 750.0 mL (600-1600)
[2025-01-22] MEDS: HYDROcodone/Acetaminophen 5/325 mg Tablet PO SCH (21:40)
[2025-01-22 22:01] LABS: Vancomycin, Trough 13.7 ug/mL
[2025-01-22] MEDS: Vancomycin HCl 750 MG in Sodium Chloride 0.9% 250 ML 250 ML IVPB SCH (23:13)
[2025-01-23] MEDS: HYDROcodone/Acetaminophen 5/325 mg Tablet PO SCH (05:05)
[2025-01-23 07:01] LABS: #Basophils Less than 0.03 10x3/uL (0.0-0.2); #Eosinophils 0.06 10x3/uL (0.0-0.7); #Monocytes 0.17 10x3/uL (0.11-0.59); #Neutrophils 1.22 10x3/uL (1.40-6.50); %Basophils 0.0 % (0.0-1.0); %Eosinophils 2.7 % (0.0-10.0); %Lymphocytes 32.9 % (21.0-51.0); %Monocytes 7.8 % (0.0-10.0); %Neutrophils 55.7 % (42.0-75.0); Hematocrit 24.2 % (36.0-47.0); Hemoglobin 7.7 g/dL (12.0-16.0); Mean Corpuscular Hemoglobin 30.2 pg (27.0-31.0); Mean Corpuscular Volume 94.9 fL (78.0-98.0); Platelet Count 32 10x3/uL (130-400); Red Blood Cell (RBC) Count 2.55 mill/uL (4.20-5.40); White Blood Cell (WBC) Count 2.19 10x3/uL (4.8-10.8)
[2025-01-23 07:15] LABS: Anion Gap 12 mmol/L (10-20); BUN (Urea Nitrogen) 52 mg/dL (7.0-18.7); Calc. Creatinine Clearance 14 mL/min (70-130); Calcium 7.8 mg/dL (7.8-10.44); Carbon Dioxide 22 mmol/L (22-29); Chloride 108 mmol/L (98-107); Glucose 117 mg/dL (70-105); Potassium 4.5 mmol/L (3.5-5.1); Sodium 137 mmol/L (136-145)
[2025-01-23] MEDS: Calcitriol 0.25 MCG CAP PO SCH (08:13)
[2025-01-23 08:31] LABS: Urine Total Volume 750.0 mL (600-1600)
[2025-01-23] MEDS ORDERED: Bupivacaine 0.25% HCL 30 ML VIAL ONE (14:11)
[2025-01-23] MEDS ORDERED: fentaNYL PF 100 MCG/2 ML SYRINGE ONE (14:24)
[2025-01-23] MEDS ORDERED: SUCCINYLCHOLINE/SOD CL,ISO/PF 200 MG/10 ML SYRINGE FS ONE (14:25)
[2025-01-23] MEDS ORDERED: Lidocaine 1% PF 5 ML VIAL ONE (14:25)
[2025-01-23] MEDS ORDERED: Heparin 10,000 UNITS/ 10 ML VIAL ONE (14:26)
[2025-01-23] MEDS ORDERED: Ondansetron PF 4 MG/2 ML Vial ONE (14:32)
[2025-01-23] MEDS ORDERED: PROPOFOL 200 MG/20 ML VIAL ONE (14:47)
[2025-01-23 17:58] LABS: Vancomycin, Trough 14.7 ug/mL
[2025-01-23] MEDS ORDERED: Vancomycin Dose by Levels Sliding Scale (Wt <71) FS SCH (19:15)
[2025-01-23] MEDS ORDERED: Vancomycin 1 GM in Premix 1 BAG IVPB SCH (21:00)
[2025-01-23] MEDS: Acetaminophen/Codeine 30-300mg Tablet PO PRN (23:23)
[2025-01-24 03:31] LABS: #Basophils Less than 0.03 10x3/uL (0.0-0.2); #Eosinophils Less than 0.03 10x3/uL (0.0-0.7); #Monocytes 0.11 10x3/uL (0.11-0.59); #Neutrophils 1.68 10x3/uL (1.40-6.50); %Basophils 0.0 % (0.0-1.0); %Eosinophils 0.0 % (0.0-10.0); %Lymphocytes 22.3 % (21.0-51.0); %Monocytes 4.7 % (0.0-10.0); %Neutrophils 72.1 % (42.0-75.0); Hematocrit 25.9 % (36.0-47.0); Hemoglobin 8.3 g/dL (12.0-16.0); Mean Corpuscular Hemoglobin 30.4 pg (27.0-31.0); Mean Corpuscular Volume 94.9 fL (78.0-98.0); Platelet Count 50 10x3/uL (130-400); Red Blood Cell (RBC) Count 2.73 mill/uL (4.20-5.40); White Blood Cell (WBC) Count 2.33 10x3/uL (4.8-10.8)
[2025-01-24 03:48] LABS: Vancomycin, Trough 25.5 ug/mL
[2025-01-24 03:49] LABS: Anion Gap 15 mmol/L (10-20); BUN (Urea Nitrogen) 33 mg/dL (7.0-18.7); Calc. Creatinine Clearance 22 mL/min (70-130); Calcium 8.1 mg/dL (7.8-10.44); Carbon Dioxide 25 mmol/L (22-29); Chloride 99 mmol/L (98-107); Glucose 301 mg/dL (70-105); Potassium 5.2 mmol/L (3.5-5.1); Sodium 134 mmol/L (136-145)
[2025-01-24] MEDS: LOKELMA 10 GM PACKET PO SCH (09:37)
[2025-01-24] MEDS: HumuLIN 70/30 100 Unit/ml 10 ml Vial SC SCH (20:20)
[2025-01-24] MEDS ORDERED: Vancomycin Dose by Levels Sliding Scale (Wt 71-99) FS SCH (20:45)
[2025-01-24] MEDS ORDERED: Vancomycin Diaylsis Sliding Scale (Wt 71-99) FS SCH (20:45)
[2025-01-25 04:32] LABS: Calc. Creatinine Clearance 32.0 mL/min (70-130); Vancomycin, Trough 17.1 ug/mL
[2025-01-25 06:46] LABS: Potassium 4.6 mmol/L (3.5-5.1); Sodium 133 mmol/L (136-145)
[2025-01-25] MEDS: Heparin 10,000 UNITS/ 10 ML VIAL FS SCH (14:08)
[2025-01-25] MEDS ORDERED: Mupirocin 1 GM TUBE NASAL SCH (21:00)
[2025-01-25] MEDS: Mupirocin 1 GM TUBE TP SCH (22:02)
[2025-01-26 05:15] LABS: Vancomycin, Trough 14.6 ug/mL
[2025-01-26] MEDS: Vancomycin HCl 750 MG in Sodium Chloride 0.9% 250 ML 250 ML IVPB SCH (06:17)
[2025-01-26 09:56] LABS: Hematocrit 22.6 % (36.0-47.0); Hemoglobin 7.2 g/dL (12.0-16.0); Mean Corpuscular Hemoglobin 30.5 pg (27.0-31.0); Mean Corpuscular Volume 95.8 fL (78.0-98.0); Platelet Count 49 10x3/uL (130-400); Red Blood Cell (RBC) Count 2.36 mill/uL (4.20-5.40); White Blood Cell (WBC) Count 1.68 10x3/uL (4.8-10.8)
[2025-01-26 10:02] LABS: Reflex for Review?? YES
[2025-01-26 10:10] LABS: Anion Gap 14 mmol/L (10-20); BUN (Urea Nitrogen) 31 mg/dL (7.0-18.7); Calc. Creatinine Clearance 41 mL/min (70-130); Calcium 7.7 mg/dL (7.8-10.44); Carbon Dioxide 28 mmol/L (22-29); Chloride 103 mmol/L (98-107); Glucose 179 mg/dL (70-105); Potassium 4.0 mmol/L (3.5-5.1); Sodium 141 mmol/L (136-145)
[2025-01-26 10:24] LABS: Anisocytosis SLIGHT = 6-15 cells HPF (0-5); Macrocytosis SLIGHT = 6-15 cells HPF (0-5); Ovalocytes SLIGHT = 2-5 cells HPF (0-1); Platelet Adequacy Comment Platelets Decreased; Polychromasia SLIGHT = 2-3 cells HPF (0-2); Smudge Cells 9.0 %
[2025-01-26 11:48] VITALS: BMI 36.9
[2025-01-26] MEDS: Acetaminophen 325 MG TAB PO PRN (21:31)
[2025-01-27 04:28] LABS: #Basophils Less than 0.03 10x3/uL (0.0-0.2); #Eosinophils Less than 0.03 10x3/uL (0.0-0.7); #Monocytes 0.11 10x3/uL (0.11-0.59); #Neutrophils 0.89 10x3/uL (1.40-6.50); %Basophils 0.6 % (0.0-1.0); %Eosinophils 0.6 % (0.0-10.0); %Lymphocytes 36.0 % (21.0-51.0); %Monocytes 6.8 % (0.0-10.0); %Neutrophils 55.4 % (42.0-75.0); Hematocrit 22.7 % (36.0-47.0); Hemoglobin 7.0 g/dL (12.0-16.0); Mean Corpuscular Hemoglobin 29.9 pg (27.0-31.0); Mean Corpuscular Volume 97.0 fL (78.0-98.0); Platelet Count 47 10x3/uL (130-400); Red Blood Cell (RBC) Count 2.34 mill/uL (4.20-5.40); White Blood Cell (WBC) Count 1.61 10x3/uL (4.8-10.8)
[2025-01-27 04:30] LABS: Vancomycin, Trough 20.3 ug/mL
[2025-01-27 04:32] LABS: Anion Gap 14 mmol/L (10-20); BUN (Urea Nitrogen) 39 mg/dL (7.0-18.7); Calc. Creatinine Clearance 31 mL/min (70-130); Calcium 8.0 mg/dL (7.8-10.44); Carbon Dioxide 26 mmol/L (22-29); Chloride 105 mmol/L (98-107); Glucose 121 mg/dL (70-105); Potassium 4.1 mmol/L (3.5-5.1); Sodium 141 mmol/L (136-145)
[2025-01-27] MEDS ORDERED: Vancomycin Diaylsis Sliding Scale (Wt 71-99) FS SCH (07:30)
[2025-01-27] MEDS: Calcitriol 0.25 MCG CAP PO SCH (08:53)
[2025-01-27] MEDS ORDERED: Mupirocin 1 GM TUBE NASAL SCH (09:00)
[2025-01-28 05:09] LABS: Hematocrit 24.2 % (36.0-47.0); Hemoglobin 7.9 g/dL (12.0-16.0); Mean Corpuscular Hemoglobin 30.3 pg (27.0-31.0); Mean Corpuscular Volume 92.7 fL (78.0-98.0); Platelet Count 47 10x3/uL (130-400); Red Blood Cell (RBC) Count 2.61 mill/uL (4.20-5.40); White Blood Cell (WBC) Count 1.86 10x3/uL (4.8-10.8)
[2025-01-28 05:40] LABS: Anisocytosis SLIGHT = 6-15 cells HPF (0-5); Platelet Adequacy Comment Platelets Decreased; Polychromasia SLIGHT = 2-3 cells HPF (0-2)
[2025-01-28] MEDS: HYDROcodone/Acetaminophen 5/325 mg Tablet PO PRN (11:32)
[2025-01-29 11:22] LABS: Hematocrit 24.7 % (36.0-47.0); Hemoglobin 7.7 g/dL (12.0-16.0); Mean Corpuscular Hemoglobin 29.7 pg (27.0-31.0); Mean Corpuscular Volume 95.4 fL (78.0-98.0); Platelet Count 46 10x3/uL (130-400); Red Blood Cell (RBC) Count 2.59 mill/uL (4.20-5.40); White Blood Cell (WBC) Count 1.89 10x3/uL (4.8-10.8)
[2025-01-29 11:42] LABS: Albumin 2.6 g/dL (3.1-4.5); Anion Gap 13 mmol/L (10-20); BUN (Urea Nitrogen) 43 mg/dL (7.0-18.7); BUN/Creatinine Ratio 11.32; Calc. Creatinine Clearance 30 mL/min (70-130); Calcium 7.9 mg/dL (7.8-10.44); Carbon Dioxide 24 mmol/L (22-29); Chloride 107 mmol/L (98-107); Glucose 287 mg/dL (70-105); Potassium 4.9 mmol/L (3.5-5.1); Sodium 139 mmol/L (136-145)
[2025-01-29 11:47] LABS: Anisocytosis SLIGHT = 6-15 cells HPF (0-5); Platelet Adequacy Comment Platelets Decreased; Polychromasia SLIGHT = 2-3 cells HPF (0-2); Smudge Cells 9.8 %
[2025-01-29] MEDS: Ketorolac Tromethamine 30 MG (1 mL) VIAL IVP PRN (12:17)
[2025-01-29] MEDS ORDERED: Heparin 10,000 UNITS/ 10 ML VIAL CATH SCH (14:00)
[2025-01-30 04:17] LABS: Albumin 2.5 g/dL (3.1-4.5); Anion Gap 17 mmol/L (10-20); BUN (Urea Nitrogen) 54 mg/dL (7.0-18.7); BUN/Creatinine Ratio 12.30; Calc. Creatinine Clearance 26 mL/min (70-130); Calcium 8.0 mg/dL (7.8-10.44); Carbon Dioxide 22 mmol/L (22-29); Chloride 107 mmol/L (98-107); Glucose 115 mg/dL (70-105); Potassium 5.1 mmol/L (3.5-5.1); Sodium 141 mmol/L (136-145)
[2025-01-30 04:33] LABS: #Basophils Less than 0.03 10x3/uL (0.0-0.2); #Eosinophils 0.04 10x3/uL (0.0-0.7); #Monocytes 0.16 10x3/uL (0.11-0.59); #Neutrophils 1.48 10x3/uL (1.40-6.50); %Basophils 0.4 % (0.0-1.0); %Eosinophils 1.8 % (0.0-10.0); %Lymphocytes 23.8 % (21.0-51.0); %Monocytes 7.2 % (0.0-10.0); %Neutrophils 66.4 % (42.0-75.0); Hematocrit 26.1 % (36.0-47.0); Hemoglobin 8.2 g/dL (12.0-16.0); Mean Corpuscular Hemoglobin 30.0 pg (27.0-31.0); Mean Corpuscular Volume 95.6 fL (78.0-98.0); Platelet Count 46 10x3/uL (130-400); Red Blood Cell (RBC) Count 2.73 mill/uL (4.20-5.40); White Blood Cell (WBC) Count 2.23 10x3/uL (4.8-10.8)
[2025-01-30 09:07] LABS: Vancomycin, Trough 8.1 ug/mL
[2025-01-30] MEDS: Activase 2 MG VIAL CATH SCH (12:46)
[2025-01-30] MEDS: Vancomycin HCl 1.25 GM in Sodium Chloride 0.9% 250 ML 250 ML IVPB SCH (17:33)
[2025-01-30] MEDS: HYDROcodone/Acetaminophen 5/325 mg Tablet PO SCH (20:11)
[2025-01-31] MEDS: Ketorolac Tromethamine 30 MG (1 mL) VIAL IVP PRN (11:57)
[2025-01-31 12:22] LABS: Hematocrit 25.5 % (36.0-47.0); Hemoglobin 8.0 g/dL (12.0-16.0); Mean Corpuscular Hemoglobin 30.0 pg (27.0-31.0); Mean Corpuscular Volume 95.5 fL (78.0-98.0); Platelet Count 45 10x3/uL (130-400); Red Blood Cell (RBC) Count 2.67 mill/uL (4.20-5.40); White Blood Cell (WBC) Count 1.90 10x3/uL (4.8-10.8)
[2025-01-31 12:38] LABS: Anion Gap 15 mmol/L (10-20); BUN (Urea Nitrogen) 42 mg/dL (7.0-18.7); Calc. Creatinine Clearance 29 mL/min (70-130); Calcium 8.2 mg/dL (7.8-10.44); Carbon Dioxide 25 mmol/L (22-29); Chloride 106 mmol/L (98-107); Glucose 144 mg/dL (70-105); Potassium 5.0 mmol/L (3.5-5.1); Sodium 141 mmol/L (136-145)
[2025-01-31 12:45] LABS: Anisocytosis SLIGHT = 6-15 cells HPF (0-5); Macrocytosis SLIGHT = 6-15 cells HPF (0-5); Nucleated RBC (Manual Ct) 1 % (0); Ovalocytes SLIGHT = 2-5 cells HPF (0-1); Plasma Cells 3 % (0-0); Platelet Adequacy Comment Platelets Decreased
[2025-01-31] MEDS: ALPRAZolam 0.25 MG TAB PO PRN (16:03)
[2025-01-31] MEDS: LIDOCAINE REMOVAL TOP SCH (19:20)
[2025-02-01 05:31] LABS: Albumin 2.4 g/dL (3.1-4.5); Anion Gap 17 mmol/L (10-20); BUN (Urea Nitrogen) 49 mg/dL (7.0-18.7); BUN/Creatinine Ratio 11.01; Calc. Creatinine Clearance 26 mL/min (70-130); Calcium 8.1 mg/dL (7.8-10.44); Carbon Dioxide 24 mmol/L (22-29); Chloride 107 mmol/L (98-107); Glucose 121 mg/dL (70-105); Potassium 5.2 mmol/L (3.5-5.1); Sodium 143 mmol/L (136-145)
[2025-02-01] MEDS: LOKELMA 10 GM PACKET PO SCH (09:35)
[2025-02-02 07:47] LABS: Vancomycin, Trough 11.2 ug/mL
[2025-02-02 07:51] LABS: Hematocrit 17.3 % (36.0-47.0); Hemoglobin 5.2 g/dL (12.0-16.0); Mean Corpuscular Hemoglobin 29.4 pg (27.0-31.0); Mean Corpuscular Volume 97.7 fL (78.0-98.0); Platelet Count 40 10x3/uL (130-400); Red Blood Cell (RBC) Count 1.77 mill/uL (4.20-5.40); White Blood Cell (WBC) Count 1.54 10x3/uL (4.8-10.8)
[2025-02-02 08:30] LABS: ALT (SGPT) 8 U/L (Less than 34); AST (SGOT) 14 U/L (11-34); Albumin 2.5 g/dL (3.1-4.5); Alkaline Phosphatase 51 U/L (40-110); Anion Gap 16 mmol/L (10-20); BUN (Urea Nitrogen) 58 mg/dL (7.0-18.7); Bilirubin, Total 0.3 mg/dL (0.3-1.2); Calc. Creatinine Clearance 21 mL/min (70-130); Calcium 8.0 mg/dL (7.8-10.44); Carbon Dioxide 21 mmol/L (22-29); Chloride 108 mmol/L (98-107); Globulin 2.5 g/dL (2.4-3.5); Glucose 129 mg/dL (70-105); Iron 46 ug/dL (50-170); Iron Binding Capacity, Total 163 mcg/dL (265-497); Potassium 5.6 mmol/L (3.5-5.1); Sodium 139 mmol/L (136-145)
[2025-02-02 08:57] LABS: Hematocrit 23.0 % (36.0-47.0); Hemoglobin 7.1 g/dL (12.0-16.0); Platelet Count 49 10x3/uL (130-400)
[2025-02-02 09:54] LABS: Anisocytosis SLIGHT = 6-15 cells HPF (0-5); Macrocytosis SLIGHT = 6-15 cells HPF (0-5); Platelet Adequacy Comment Platelets Decreased; Smudge Cells 18.3 %
[2025-02-02 09:55] LABS: Toxic Granulation MARKED
[2025-02-02 11:47] LABS: Vitamin B12 500.0 pg/mL (211-911)
[2025-02-02] MEDS ORDERED: Iopamidol-370 76% 500 ML MDV (1 ML CHARGE) ONE (13:07)
[2025-02-02] MEDS: Vancomycin 1 GM in Premix 1 BAG IVPB SCH (17:02)
[2025-02-03 04:29] LABS: ALT (SGPT) Less than 7 U/L (Less than 34); AST (SGOT) 16 U/L (11-34); Albumin 2.5 g/dL (3.1-4.5); Alkaline Phosphatase 55 U/L (40-110); Anion Gap 15 mmol/L (10-20); BUN (Urea Nitrogen) 27 mg/dL (7.0-18.7); Bilirubin, Total 0.3 mg/dL (0.3-1.2); Calc. Creatinine Clearance 34 mL/min (70-130); Calcium 8.4 mg/dL (7.8-10.44); Carbon Dioxide 27 mmol/L (22-29); Chloride 102 mmol/L (98-107); Globulin 2.3 g/dL (2.4-3.5); Glucose 192 mg/dL (70-105); Potassium 4.6 mmol/L (3.5-5.1); Sodium 139 mmol/L (136-145)
[2025-02-03 04:30] LABS: Hematocrit 21.0 % (36.0-47.0); Hemoglobin 6.4 g/dL (12.0-16.0); Mean Corpuscular Hemoglobin 29.5 pg (27.0-31.0); Mean Corpuscular Volume 96.8 fL (78.0-98.0); Platelet Count 47 10x3/uL (130-400); Red Blood Cell (RBC) Count 2.17 mill/uL (4.20-5.40); White Blood Cell (WBC) Count 1.47 10x3/uL (4.8-10.8)
[2025-02-03 06:32] LABS: Anisocytosis SLIGHT = 6-15 cells HPF (0-5); Platelet Adequacy Comment Platelets Normal; Poikilocytosis SLIGHT = 6-15 cells HPF (0-5)
[2025-02-03 10:23] LABS: Hematocrit 23.1 % (36.0-47.0); Hemoglobin 7.2 g/dL (12.0-16.0); Mean Corpuscular Hemoglobin 29.6 pg (27.0-31.0); Mean Corpuscular Volume 95.1 fL (78.0-98.0); Platelet Count 50 10x3/uL (130-400); Red Blood Cell (RBC) Count 2.43 mill/uL (4.20-5.40); White Blood Cell (WBC) Count 1.41 10x3/uL (4.8-10.8)
[2025-02-03] MEDS ORDERED: Dexamethasone 5 MG in Sodium Chloride 0.9% 50 ML IVPB SCH (11:15)
[2025-02-03] MEDS: Nystatin Powder 15 GM BOT TOP PRN (11:16)
[2025-02-03 11:51] LABS: Anisocytosis SLIGHT = 6-15 cells HPF (0-5); Macrocytosis SLIGHT = 6-15 cells HPF (0-5); Platelet Adequacy Comment Platelets Decreased; Polychromasia SLIGHT = 2-3 cells HPF (0-2); Smudge Cells 10.7 %
[2025-02-03] MEDS ORDERED: PRIVIGEN IVPB SCH (12:00)
[2025-02-03] MEDS: Dexamethasone 10 MG/ML VIAL SLOW IVP SCH (14:50)
[2025-02-03] MEDS: Acetaminophen 500 MG TAB PO SCH (14:50)
[2025-02-03] MEDS: PRIVIGEN IVPB SCH (14:51)
[2025-02-03] MEDS: ADMIXTURE FEE IVPB SCH (14:51)
[2025-02-04] MEDS: hydrALAZINE 20 MG/ML VIAL SLOW IVP PRN (02:29)
[2025-02-04 05:59] LABS: Hematocrit 24.7 % (36.0-47.0); Hemoglobin 7.7 g/dL (12.0-16.0); Mean Corpuscular Hemoglobin 29.6 pg (27.0-31.0); Mean Corpuscular Volume 95.0 fL (78.0-98.0); Platelet Count 54 10x3/uL (130-400); Red Blood Cell (RBC) Count 2.60 mill/uL (4.20-5.40); White Blood Cell (WBC) Count 1.52 10x3/uL (4.8-10.8)
[2025-02-04 06:17] LABS: ALT (SGPT) 8 U/L (Less than 34); AST (SGOT) 13 U/L (11-34); Albumin 2.9 g/dL (3.1-4.5); Alkaline Phosphatase 64 U/L (40-110); Anion Gap 15 mmol/L (10-20); BUN (Urea Nitrogen) 47 mg/dL (7.0-18.7); Bilirubin, Total 0.3 mg/dL (0.3-1.2); Calc. Creatinine Clearance 25 mL/min (70-130); Calcium 8.9 mg/dL (7.8-10.44); Carbon Dioxide 20 mmol/L (22-29); Chloride 108 mmol/L (98-107); Globulin 3.1 g/dL (2.4-3.5); Glucose 263 mg/dL (70-105); Potassium 5.6 mmol/L (3.5-5.1); Sodium 137 mmol/L (136-145)
[2025-02-04 06:32] LABS: Platelet Adequacy Comment Platelets Decreased; Polychromasia SLIGHT = 2-3 cells HPF (0-2); Smudge Cells 1.0 %
[2025-02-04] MEDS ORDERED: LOKELMA 10 GM PACKET PO SCH (07:33)
[2025-02-04] MEDS ORDERED: Epoetin (ESRD) 10,000 UNITS/ML VIAL SC SCH (07:45)
[2025-02-04 07:50] LABS: Vancomycin, Trough 19.4 ug/mL
[2025-02-04] MEDS: EPOETIN ALFA-EPBX (ESRD) 10,000 UNITS/ML VIAL SC SCH (12:54)
[2025-02-04] MEDS: Vancomycin HCl 750 MG in Sodium Chloride 0.9% 250 ML 250 ML IVPB SCH (18:19)
[2025-02-05 04:20] LABS: #Basophils Less than 0.03 10x3/uL (0.0-0.2); #Eosinophils Less than 0.03 10x3/uL (0.0-0.7); #Monocytes 0.11 10x3/uL (0.11-0.59); #Neutrophils 1.05 10x3/uL (1.40-6.50); %Basophils 0.6 % (0.0-1.0); %Eosinophils 0.0 % (0.0-10.0); %Lymphocytes 33.1 % (21.0-51.0); %Monocytes 6.3 % (0.0-10.0); %Neutrophils 60.0 % (42.0-75.0); Hematocrit 21.7 % (36.0-47.0); Hemoglobin 6.8 g/dL (12.0-16.0); Mean Corpuscular Hemoglobin 29.8 pg (27.0-31.0); Mean Corpuscular Volume 95.2 fL (78.0-98.0); Platelet Count 42 10x3/uL (130-400); Red Blood Cell (RBC) Count 2.28 mill/uL (4.20-5.40); White Blood Cell (WBC) Count 1.75 10x3/uL (4.8-10.8)
[2025-02-05 04:27] LABS: ALT (SGPT) 8 U/L (Less than 34); AST (SGOT) 16 U/L (11-34); Albumin 2.7 g/dL (3.1-4.5); Alkaline Phosphatase 53 U/L (40-110); Anion Gap 13 mmol/L (10-20); BUN (Urea Nitrogen) 27 mg/dL (7.0-18.7); Bilirubin, Total 0.3 mg/dL (0.3-1.2); Calc. Creatinine Clearance 33 mL/min (70-130); Calcium 8.4 mg/dL (7.8-10.44); Carbon Dioxide 26 mmol/L (22-29); Chloride 104 mmol/L (98-107); Globulin 2.7 g/dL (2.4-3.5); Glucose 157 mg/dL (70-105); Potassium 4.2 mmol/L (3.5-5.1); Sodium 139 mmol/L (136-145)
[2025-02-05] MEDS ORDERED: Heparin 10,000 UNITS/ 10 ML VIAL ONE (06:11)
[2025-02-05] MEDS ORDERED: Lidocaine 1% (PF) 30 ML VIAL ONE (06:11)
[2025-02-05] MEDS ORDERED: fentaNYL PF 100 MCG/2 ML SYRINGE ONE (06:42)
[2025-02-05] MEDS ORDERED: Lidocaine 1% PF 5 ML VIAL ONE (06:42)
[2025-02-05] MEDS ORDERED: Ondansetron PF 4 MG/2 ML Vial ONE (06:42)
[2025-02-05] MEDS ORDERED: Glycopyrrolate 0.2 MG/ML 5 ML SYRINGE ONE (06:45)
[2025-02-05] MEDS ORDERED: SUGAMMADEX SODIUM 200 MG/2 ML VIAL ONE ×2 (07:53→08:08)
[2025-02-05] MEDS ORDERED: Sodium Chloride 0.9% 250 ML 500 ML ONE (08:03)
[2025-02-05 09:56] LABS: #Basophils Less than 0.03 10x3/uL (0.0-0.2); #Eosinophils Less than 0.03 10x3/uL (0.0-0.7); #Monocytes 0.12 10x3/uL (0.11-0.59); #Neutrophils 2.56 10x3/uL (1.40-6.50); %Basophils 0.3 % (0.0-1.0); %Eosinophils 0.3 % (0.0-10.0); %Lymphocytes 14.2 % (21.0-51.0); %Monocytes 3.8 % (0.0-10.0); %Neutrophils 80.8 % (42.0-75.0); Hematocrit 27.4 % (36.0-47.0); Hemoglobin 8.6 g/dL (12.0-16.0); Mean Corpuscular Hemoglobin 29.8 pg (27.0-31.0); Mean Corpuscular Volume 94.8 fL (78.0-98.0); Platelet Count 53 10x3/uL (130-400); Red Blood Cell (RBC) Count 2.89 mill/uL (4.20-5.40); White Blood Cell (WBC) Count 3.17 10x3/uL (4.8-10.8)
[2025-02-05 11:56] VITALS: TEMP 98.5
[2025-02-05 14:33] VITALS: BP 142/75
== END 2025-02-05 16:07 | disposition home or self-care (01) | DRG 314 ==
LOC: ERS 11:45 → MSONC 15:40
PROVIDERS: ADMIT Internal Medicine; ATTEND Family Medicine
PROC: 5A1D70Z Performance of Urinary Filtration, Intermittent, Less than 6 Hours Per Day (ICD-10-PCS; 2025-01-23)
PROC: 3E03329 Introduction of Other Anti-infective into Peripheral Vein, Percutaneous Approach (ICD-10-PCS; 2025-01-23)
PROC: 30233N1 Transfusion of Nonautologous Red Blood Cells into Peripheral Vein, Percutaneous Approach (ICD-10-PCS; 2025-01-23)
PROC: 0JPV0XZ Removal of Tunneled Vascular Access Device from Upper Extremity Subcutaneous Tissue and Fascia, Open Approach (ICD-10-PCS; principal; 2025-02-04)
DX: T80.212A Local infection due to central venous catheter, initial encounter (principal); N18.6 End stage renal disease; D80.1 Nonfamilial hypogammaglobulinemia; I12.0 Hypertensive chronic kidney disease with stage 5 chronic kidney disease or end stage renal disease; D61.818 Other pancytopenia; D63.1 Anemia in chronic kidney disease; E87.5 Hyperkalemia; E11.649 Type 2 diabetes mellitus with hypoglycemia without coma; F79 Unspecified intellectual disabilities; N93.8 Other specified abnormal uterine and vaginal bleeding; J45.909 Unspecified asthma, uncomplicated; E11.22 Type 2 diabetes mellitus with diabetic chronic kidney disease; Z88.0 Allergy status to penicillin; F41.9 Anxiety disorder, unspecified; Z88.1 Allergy status to other antibiotic agents; Z88.8 Allergy status to other drugs, medicaments and biological substances; Z99.2 Dependence on renal dialysis; Z90.49 Acquired absence of other specified parts of digestive tract; Z98.890 Other specified postprocedural states; E83.51 Hypocalcemia; K21.9 Gastro-esophageal reflux disease without esophagitis
CPT/HCPCS: 36415; 36416; 36430; 70360; 70491; 71045; 71046; 80048; 80053; 80069; 80202; 82306; 82565; 82570; 82575; 82607; 82728; 83540; 83550; 83605; 83615; 83970; 84132; 84295; 85025; 85060; 86850; 86870; 86900; 86901; 86922; 87040; 87070; 87071; 87077; 87149; 87186; 87205; 90935; 93005; 93306; 94640; 96365; 96367; 96375; 96376; C1750; C1752; C1894; G0257; J0169; J0360; J0457; J0665; J1100; J1459; J1642; J1644; J1815; J1885; J2003; J2270; J2272; J2405; J2704; J2997; J3010; J3371; J3373; J7050; P9035; P9040; Q5105; Q9967

== ENCOUNTER 2025-03-03 08:38 | Day surgery (SDC) | payer MEDICAID ==
[2025-03-03] MEDS ORDERED: Dexamethasone 10 MG/ML VIAL ONE (09:25)
[2025-03-03] MEDS: Dexamethasone 10 MG/ML VIAL SLOW IVP SCH (09:26)
[2025-03-03] MEDS: ADMIXTURE FEE IVPB SCH (09:33)
[2025-03-03] MEDS: PRIVIGEN IVPB SCH (09:33)
[2025-03-03 13:30] VITALS: BP 178/85; TEMP 98.3
[2025-03-03] MEDS ORDERED: FLU (Fluarix Triv) 25-26 (6MOS UP)/PF 45 MCG/0.5 ML Syringe IM ONE (14:00)
[2025-03-03] MEDS ORDERED: PNEUMOC 20-VAL CONJ-DIP CRM/PF 0.5 ML SYRINGE IM ONE (14:00)
== END 2025-03-03 13:42 | disposition home or self-care (01) ==
LOC: ONC/OP 08:38
PROVIDERS: ATTEND Internal Medicine
DX: D59.10 Autoimmune hemolytic anemia, unspecified (principal); D80.1 Nonfamilial hypogammaglobulinemia; D58.9 Hereditary hemolytic anemia, unspecified; D70.8 Other neutropenia; D63.1 Anemia in chronic kidney disease; N18.4 Chronic kidney disease, stage 4 (severe); L03.90 Cellulitis, unspecified; D69.3 Immune thrombocytopenic purpura; D83.9 Common variable immunodeficiency, unspecified
CPT/HCPCS: 96365; 96366; J1100; J1459